=== PATIENT | male | born 1945 | race Caucasian/White ===

== ENCOUNTER 2016-06-13 09:42 | Emergency (ER) | payer OTHER ==
[2016-06-13 10:07] VITALS: BP 137/85; BMI 26.7
--- NOTE | 2016-06-13 10:35 | DR.GENAD ---
HPI - PCP Primary Care Physician: LIONEL VELÁZQUEZ - Complaint/Symptoms Chief Complaint Doctors Comments: Patient presents with complain to chest congestion for 3-4 days; non productive cough. Has a history of COPD and [place] Pulmonary Embolus. Chief Complaint:: CHEST CONGESTION - Source History Provided: Family Member - Mode of Arrival Mode of Arrival: Ambulatory - Timing Onset of Chief Complaint: 06/06/16 PMH - PMH Past Medical History: Yes Past Medical History: CVA, GERD, Hypertension Past Surgical History: Yes Surgical History: Cholecystectomy - Family History History of Family Medical Conditions: Yes Family Medical History: Hypertension Family Medical History Comment: CVA - Social History Does patient currently use any type of tobacco product: Yes Have you used tobacco products in the last 12 months: Yes Type of Tobacco Use: Smokeless How many years tobacco product used: 50 Does any household member use tobacco: Yes Alcohol Use: None Do you use any recreational Drugs:: No Lives With: Spouse Lives Where: Home - infectious screening In the last 2 months have you had wt loss of >10#?: NO Have you had fever, night sweats or hemotysis?: No Have you traveled outside the country in the last 6 months?: No Isolation: Standard ROS - Review of Systems Constitutional: No Symptoms Reported Eyes: No Symptoms Reported ENTM: No Symptoms Reported Respiratoy: Non-Productive Cough Cardiovascular: No Symptoms Reported Gastrointestinal/Abdominal: No Symptoms Reported Genitourinary: No Symptoms Reported Neurological: No Symptoms Reported Musculoskeletal: No Symptoms Reported Integumentary: No Symptoms Reported Hematologic/Lymphatic: No Symptoms Reported Endocrine: No Symptoms Reported Psychiatric: No Symptoms Reported All Other Systems: Reviewed and Negative PE - Vital Signs Vitals: Temperature 98.6 F Pulse Rate 79 Respiratory Rate 18 Blood Pressure [Left Arm] 139/72 Blood Pressure [Right Arm] 142/87 Blood Pressure 137/85 O2 Sat by Pulse Oximetry 93 - General Limitations: No Limitations General Appearance: Alert, In No Apparent Distress - Head Head Exam: Normal Inspection, Atraumatic - Eyes Eye exam: Normal Appearance, PERRL, EOMI - ENT ENT Exam: Normal Exam External Ear Exam: Normal External Inspection TM/Canal Exam: Bilateral Normal Nose Exam: Normal Nose Exam Mouth Exam: Normal Inspection Throat Exam: Normal Inspection - Neck Neck Exam: Normal Inspection - Chest Chest Inspection: Normal Inspection - Respiratory Respiratory Exam: negative: Respiratory Distress Respiratory Exam: Bilateral Rhonchi - Cardiovascular Cardiovascular Exam: Regular Rate - Abdominal Exam Abdominal Exam: Normal Inspection Abdominal Tenderness: negative: RUQ, RLQ, LUQ, LLQ, Epigastrium, Suprapubic, Diffuse, Mild, Moderate, Severe, Other - Extremities Extremities Exam: Normal Inspection - Back Back Exam: Normal Inspection - Neurologic Neurological Exam: Alert, Oriented X3, CN II-XII Intact - Psychiatric Psychiatric Exam: Normal Affect - Skin Skin Exam: Warm, Dry, Intact - Diagnosis Discharge Problem: COPD (chronic obstructive pulmonary disease) Qualifiers: COPD type: chronic bronchitis Chronic bronchitis type: simple Qualified Code(s) : J41.0 - Simple chronic bronchitis - Discharge Plan Condition: Stable - Follow ups/Referrals Follow ups/Referrals: Lionel Velázquez [Primary Care Provider] - 3 days - Instructions
[2016-06-13] MEDS ORDERED: DUONEB 0.5 MG/3 MG NEB ONE (10:36)
[2016-06-13] MEDS ORDERED: DECADRON JET NEB NEB ONE ×2 (10:36→10:42)
[2016-06-13] MEDS ORDERED: DUONEB 0.5 MG/3 MG ONE (10:43)
--- NOTE | 2016-06-13 11:57 | RAD ---
HISTORY: Cough, shortness of breath Study: Chest one view Comparison: December 23, 2015 Findings: The trachea is midline. The cardiac silhouette is upper limits normal in size. No congestive heart failure is noted. The aorta is calcified.. The lungs are mildly hypoinflated but free of acute infi ltrates. The left hemidiaphragm is mildly elevated. A hiatal hernia is likely present.. The bony th orax is unremarkable. IMPRESSION: 1. No acute cardiopulmonary disease. 2. Hiatal hernia Reported By:
== END 2016-06-13 12:45 | disposition home or self-care (01) ==
LOC: ER 10:19
DX: J41.0 Simple chronic bronchitis (principal); K44.9 Diaphragmatic hernia without obstruction or gangrene
CPT/HCPCS: 71010; 87502; 87503; 94640; 99282; J7620

== ENCOUNTER 2016-06-24 12:59 | Inpatient (IN) | payer OTHER ==
[2016-06-24] MEDS ORDERED: SALINE 3% 15 ML NEB TX ONE (14:46)
[2016-06-24] MEDS ORDERED: NS 1/2 1000 ML IV 1,000 ML IV ONE ×2 (15:27→20:48)
[2016-06-24 15:29] LABS: BASOPHILS % (AUTO) 0.3 % (0.2-1.0); EOSINOPHILS % (AUTO) 0.1 % (0.9-2.9); HEMATOCRIT 34.9 % (42.0-54.0); HEMOGLOBIN 11.7 g/dL (13.5-18.0); LYMPHOCYTES # (AUTO) 1.9 X10^3/uL (1.3-2.9); LYMPHOCYTES % (AUTO) 11.7 % (21.0-51.0); MEAN CORPUSCULAR HEMOGLOBIN 28.4 pg (27.0-34.0); MEAN CORPUSCULAR HGB CONC 33.4 g/dL (33.0-35.0); MEAN CORPUSCULAR VOLUME 85.1 fL (80.0-100.0); MEAN PLATELET VOLUME 6.7 fL (7.4-11.0); MONOCYTES # (AUTO) 1.6 x10^3/uL (0.3-0.8); MONOCYTES % (AUTO) 9.9 % (0.0-13.0); NEUTROPHILS # (AUTO) 12.7 x10^3/uL (2.2-4.8); PLATELET COUNT 244 X10^3/uL (150.0-450.0); RED BLOOD COUNT 4.11 X10^6/uL (4.7-6.0); RED CELL DISTRIBUTION WIDTH 14.2 % (11.6-16.5); WHITE BLOOD COUNT 16.3 X10^3/uL (3.6-10.0)
[2016-06-24] MEDS: LEVAQUIN PREMIX IV 750 MG 750 MG/150 ML BAG IV SCH (15:38)
[2016-06-24] MEDS: FORTAZ or TAZICEF INJ 2 GM in NS 50 ML IV + SPIKE MINIBAG* 50 ML IV SCH ×2 (15:39→23:47)
[2016-06-24] MEDS: NS 1/2 1000 ML IV 1,000 ML IV SCH (15:39)
[2016-06-24] MEDS: TAMIFLU PO SCH ×2 (15:40→20:55)
[2016-06-24] MEDS: SOLU-Medrol 40 MG VIAL IVP SCH ×2 (15:40→21:03)
[2016-06-24 15:43] LABS: ALANINE AMINOTRANSFERASE 20 Units/L (12-78); ALBUMIN 2.9 g/dL (3.4-5.0); ALKALINE PHOSPHATASE 47 Units/L (46-116); ASPARTATE AMINO TRANSFERASE 19 Units/L (15-37); BLOOD UREA NITROGEN 8 mg/dL (7-18); CALCIUM 8.8 mg/dL (8.5-10.1); CARBON DIOXIDE 28.2 mmol/L (21-32); CHLORIDE 107 mmol/L (98-107); COR CA(FOR HYPOALB) 9.7 mg/dL (8.5-10.1); CREATININE 1.14 mg/dL (0.70-1.30); GLUCOSE 85 mg/dL (65-99); SODIUM 144 mmol/L (136-145); TOTAL PROTEIN 7.2 g/dL (6.4-8.2); eGFR BLACK RACES > 60 (>60); eGFR NON BLACK RACES > 60 (>60)
[2016-06-24 15:51] VITALS: BMI 33.9
[2016-06-24] MEDS: DUONEB 0.5 MG/3 MG NEB SCH ×2 (16:52→21:19)
[2016-06-24] MEDS: ROBITUSSIN DM PO SCH ×2 (17:45→20:55)
--- NOTE | 2016-06-24 19:45 | RAD ---
CHEST RADIOGRAPHS PA AND LATERAL VIEWS CLINICAL HISTORY: 71-year-old male with wheezing and shortness of breath. COMPARISON: Chest radiograph June 13, 2016.. FINDINGS: The cardiopericardial silhouette is stable. There is no focal consolidation, pleural effu alonzo or pneumothorax. The lungs are well inflated. Chronic prominence of the perihilar lung markings . Imaged osseous structures are intact. Soft tissues are unremarkable. IMPRESSION: No acute cardiopulmonary process. Reported By:
[2016-06-25] MEDS: DUONEB 0.5 MG/3 MG NEB SCH ×6 (00:45→20:45)
[2016-06-25] MEDS: FORTAZ or TAZICEF INJ 2 GM in NS 50 ML IV + SPIKE MINIBAG* 50 ML IV SCH ×3 (05:58→21:29)
[2016-06-25] MEDS: NS 1/2 1000 ML IV 1,000 ML IV SCH ×2 (05:58→18:17)
[2016-06-25] MEDS: SOLU-Medrol 40 MG VIAL IVP SCH ×3 (05:59→21:38)
[2016-06-25 07:09] LABS: ALANINE AMINOTRANSFERASE 16 Units/L (12-78); ALBUMIN 2.5 g/dL (3.4-5.0); ALKALINE PHOSPHATASE 40 Units/L (46-116); ASPARTATE AMINO TRANSFERASE 13 Units/L (15-37); BLOOD UREA NITROGEN 12 mg/dL (7-18); CALCIUM 8.9 mg/dL (8.5-10.1); CARBON DIOXIDE 24.6 mmol/L (21-32); CHLORIDE 105 mmol/L (98-107); COR CA(FOR HYPOALB) 10.1 mg/dL (8.5-10.1); COR NA(FOR HYPERGLY) 142 mmol/L (136-145); GLUCOSE 130 mg/dL (65-99); SODIUM 141 mmol/L (136-145); TOTAL PROTEIN 6.8 g/dL (6.4-8.2); eGFR BLACK RACES > 60 (>60); eGFR NON BLACK RACES > 60 (>60)
[2016-06-25 07:31] LABS: BASOPHILS % (AUTO) 0 % (0.2-1.0); HEMATOCRIT 32.1 % (42.0-54.0); HEMOGLOBIN 10.6 g/dL (13.5-18.0); LYMPHOCYTES # (AUTO) 0.4 X10^3/uL (1.3-2.9); LYMPHOCYTES % (AUTO) 2.8 % (21.0-51.0); MEAN CORPUSCULAR HEMOGLOBIN 28.2 pg (27.0-34.0); MEAN CORPUSCULAR HGB CONC 32.9 g/dL (33.0-35.0); MEAN CORPUSCULAR VOLUME 85.5 fL (80.0-100.0); MEAN PLATELET VOLUME 6.9 fL (7.4-11.0); MONOCYTES # (AUTO) 0.5 x10^3/uL (0.3-0.8); NEUTROPHILS # (AUTO) 12.5 x10^3/uL (2.2-4.8); NEUTROPHILS % (AUTO) 93.2 % (42.0-75.0); PLATELET COUNT 209 X10^3/uL (150.0-450.0); RED BLOOD COUNT 3.76 X10^6/uL (4.7-6.0); RED CELL DISTRIBUTION WIDTH 14.3 % (11.6-16.5); WHITE BLOOD COUNT 13.4 X10^3/uL (3.6-10.0)
--- NOTE | 2016-06-25 07:50 | RAD ---
HISTORY: Chest pain Study: Single view chest. Comparison: June 24, 2016. Findings: The trachea is midline. The cardiac silhouette is unremarkable. The lungs are clear without focal infiltrate or effusion. The bony thorax is unremarkable. A small hiatal hernia remains. IMPRESSION: 1. No acute cardiopulmonary changes seen. Reported By:
[2016-06-25 08:15] LABS: PLATELET MORPHOLOGY COMMENT NORMAL (NORMAL)
[2016-06-25] MEDS: TAMIFLU PO SCH ×2 (09:47→21:37)
[2016-06-25] MEDS: ROBITUSSIN DM PO SCH ×3 (09:47→17:39)
[2016-06-25] MEDS: LEVAQUIN PREMIX IV 750 MG 750 MG/150 ML BAG IV SCH (09:47)
[2016-06-25] MEDS ORDERED: ULTRAM PO PRN (10:56)
[2016-06-25] MEDS ORDERED: CHOLECALCIFEROL PO SCH (11:00)
[2016-06-25] MEDS ORDERED: [UNRECOGNIZED DRUG - OTHER] PO SCH (11:00)
[2016-06-25] MEDS ORDERED: LOPRESSOR TAB 50 MG PO SCH (11:00)
[2016-06-25] MEDS ORDERED: EFFEXOR XR 37.5 MG CAP PO SCH (11:00)
[2016-06-25] MEDS ORDERED: [UNRECOGNIZED DRUG - OTHER] PO SCH (11:00)
[2016-06-25] MEDS: EFFEXOR TAB 37.5 MG (BID DOSING) PO SCH (12:06)
[2016-06-25] MEDS: NAMENDA TAB 10 MG PO SCH ×2 (12:06→21:34)
[2016-06-25] MEDS: LOPRESSOR TAB 25 MG PO SCH ×2 (12:06→21:35)
[2016-06-25] MEDS: GEODON PO SCH ×2 (12:07→21:37)
[2016-06-25] MEDS: ALBUMIN HUMAN 25%- 100ML 100 ML IV SCH (12:07)
[2016-06-25] MEDS: ELIQUIS PO SCH ×2 (12:07→21:34)
[2016-06-25] MEDS: ZANTAC PO SCH ×2 (12:07→21:34)
[2016-06-25] MEDS: SINGULAIR TAB 10 MG PO SCH (12:07)
[2016-06-25] MEDS: [UNRECOGNIZED DRUG - OTHER] PO SCH ×3 (12:12→21:40)
--- NOTE | 2016-06-25 17:37 | DR.UPDATE ---
H&P Update History and Physical Update: HISTORY AND PHYSICAL UPDATE FOR ADMISSION 06/24/16 MR. CHIN'S H&P WAS COMPLETED IN OUR OFFICE PRIOR TO ADMISSION. HE HAS BEEN SEEN AND EXAMINED WITH NO CHANGES NOTED.
--- NOTE | 2016-06-25 17:41 | PCM.PROG ---
Progress Note - Progress Note for Day of Date: 06/25/16 - Subjective Subjective: PATIENT RESTS IN BED. AT BEDSIDE. PATIENT IS NOTED WITH SHORTNESS OF BREATH AND CHEST CONGESTION TODAY. HE CONTINUES ON IV LEVAQUIN, FORTAZ, AND AGGRESSIVE NEB TREATMENTS FOR BRONCHOPNEUMONIA WITH FAILED OUTPATIENT TREATMENT. ON AUSCULTATION, LUNGS ARE NOTED WITH WHEEZING AND RHONCHI THROUGHOUT. COUGH IS INTERMITTENT, NON-PRODUCTIVE. PATIENT HAS DIFFICULTY WITH FOLLOWING INSTRUCTIONS DUE TO PRIOR CVA. PATIENT DOES NOT FOLLOW COMMAND TO DEEP BREATH AND COUGH. PATIENT AFEBRILE. CBC WNL EXCEPT: WBC 13.4, H/H 10.6/32.1. CMP WNL EXCEPT: GLUCOSE 130, ALBUMIN 2.5. CRP 80.60. WE WILL CONTINUE CURRENT TREATMENT AND FOLLOW UP IN AM WITH LABS AND CHEST XRAY. - Past Medical Family Social History Past Med/Fam/Surg Hx: No changes since H&P Allergies: Allergies No Known Drug Allergy Allergy (Verified 06/24/16 14:52) - Review of Systems ROS: No change since H&P - Vital Signs and I&O's Vital Signs: Temperature 97.9 F Pulse Rate [Left Brachial] 66 Pulse Rate [Right Brachial] 78 Pulse Rate 64 Respiratory Rate 20 Blood Pressure [Left Arm] 114/59 Blood Pressure [Right Arm] 120/58 Blood Pressure 137/85 O2 Sat by Pulse Oximetry 99 Intake and Output: Intake & Output 06/23/16 06/24/16 06/25/16 06/26/16 11:59 11:59 11:59 11:59 Intake Total 660 1136 Output Total 0 Balance 660 1136 - Physical Exam Oriented: Not Oriented Eyes: Normal. negative: Blurred Vision, Diplopia, Discharge, Pain, Redness, Photophobia Ear: Normal. negative: Swelling, Ecchymosis, Hemotypanum, Abrasion, Laceration Nose: Normal. negative: Injected Throat: Red, Dry. negative: Tonsillar Hypertrophy, Exudate Respiratory: Generalized, Wheezes, Rhonchi Cardiovascular: Normal. negative: Murmur, Edema : Normal. negative: Dysuria, Hematuria, Frequency, Discharge, Bleeding, Auscultation: Bowel Sounds: Normal. negative: Bruit Palpation: Normal. negative: Spleen Enlarged, Liver Enlarged, Mass Pulsatile Tenderness: Normal. negative: Rebound, Guarding, Rigidity Skin: Decreased Turgur. negative: Diaphoresis, Wound, Bruising, Ecchymosis Musculoskeletal: Motor Deficit, Instability Psychiatric: Normal Mood Description: Calm, Appropriate Affect: Normal Speech Pattern: Clear, Delayed - Laboratory and Diagnostics Result Diagrams: 06/25/16 06:35 06/25/16 06:35 Labs: 06/24/16 15:02 Sputum - Expectorated Sputum Sputum Culture - Preliminary 06/24/16 15:02 Sputum - Expectorated Sputum - Final Laboratory WBC 13.4 X10^3/uL (3.6-10.0) H 06/25/16 06:35 RBC 3.76 X10^6/uL (4.7-6.0) L 06/25/16 06:35 Hgb 10.6 g/dL (13.5-18.0) L 06/25/16 06:35 Hct 32.1 % (42.0-54.0) L 06/25/16 06:35 MCV 85.5 fL (80.0-100.0) 06/25/16 06:35 MCH 28.2 pg (27.0-34.0) 06/25/16 06:35 MCHC 32.9 g/dL (33.0-35.0) L 06/25/16 06:35 RDW 14.3 % (11.6-16.5) 06/25/16 06:35 Plt Count 209 X10^3/uL (150.0-450.0) 06/25/16 06:35 Plt Count Comment Adequate (ADEQUATE) 06/25/16 06:35 MPV 6.9 fL (7.4-11.0) L 06/25/16 06:35 Neut % 93.2 % (42.0-75.0) H 06/25/16 06:35 Lymph % 2.8 % (21.0-51.0) L 06/25/16 06:35 [place] % 4.0 % (0.0-13.0) 06/25/16 06:35 Eos % 0.0 % (0.9-2.9) L 06/25/16 06:35 Baso % 0 % (0.2-1.0) L 06/25/16 06:35 Neut # 12.5 x10^3/uL (2.2-4.8) H 06/25/16 06:35 Lymph # 0.4 X10^3/uL (1.3-2.9) L 06/25/16 06:35 [place] # 0.5 x10^3/uL (0.3-0.8) 06/25/16 06:35 Eos # 0.0 x10^3/uL (0.0-0.2) 06/25/16 06:35 Baso # 0.0 X10^3/uL (0.0-0.1) 06/25/16 06:35 Absolute Nucleated RBC 0.0 /100WBC 06/25/16 06:35 Total Counted 100 06/25/16 06:35 Neutrophils % (Manual) 92 % (39-76) H 06/25/16 06:35 Lymphocytes % (Manual) 6 % (13-43) L 06/25/16 06:35 Monocytes % (Manual) 2 % (4-9) L 06/25/16 06:35 Plt Morphology Comment Normal (NORMAL) 06/25/16 06:35 RBC Morphology Normal (NORMAL) 06/25/16 06:35 Sodium 141 mmol/L (136-145) 06/25/16 06:35 Corrected Sodium 142 mmol/L (136-145) 06/25/16 06:35 Potassium 4.0 mmol/L (3.5-5.1) 06/25/16 06:35 Chloride 105 mmol/L (98-107) 06/25/16 06:35 Carbon Dioxide 24.6 mmol/L (21-32) 06/25/16 06:35 BUN 12 mg/dL (7-18) 06/25/16 06:35 Creatinine 1.10 mg/dL (0.70-1.30) 06/25/16 06:35 Est GFR (MDRD) Af Amer > 60 (>60) 06/25/16 06:35 Est GFR (MDRD) Non-Af > 60 (>60) 06/25/16 06:35 Glucose 130 mg/dL (65-99) H 06/25/16 06:35 Calcium 8.9 mg/dL (8.5-10.1) 06/25/16 06:35 Corrected Calcium 10.1 mg/dL (8.5-10.1) 06/25/16 06:35 Total Bilirubin 0.60 mg/dL (0.2-1.0) 06/25/16 06:35 AST 13 Units/L (15-37) L 06/25/16 06:35 ALT 16 Units/L (12-78) 06/25/16 06:35 Alkaline Phosphatase 40 Units/L (46-116) L 06/25/16 06:35 C-Reactive Protein 80.60 mg/L (0-3.0) H 06/25/16 06:35 Total Protein 6.8 g/dL (6.4-8.2) 06/25/16 06:35 Albumin 2.5 g/dL (3.4-5.0) L 06/25/16 06:35 Globulin 4.3 g/dL (2.5-4.5) 06/25/16 06:35 Albumin/Globulin Ratio 0.6 Ratio (1.1-2.1) L 06/25/16 06:35 - Plan (1) Bronchopneumonia Status: Acute Plan: CONTINUE IV FORTAZ, LEVAQUIN, AGGRESSIVE NEBS, SUPPLEMENTAL OXGYEN, MONITOR LABS AND CHEST XRAY. (2) Hx of pulmonary embolus Status: Chronic (3) History of CVA (cerebrovascular accident) Status: Chronic (4) COPD (chronic obstructive pulmonary disease) Status: Acute Qualifiers: COPD type: chronic bronchitis Chronic bronchitis type: simple Emphysema type: E Qualified Code(s): J41.0 - Simple chronic bronchitis (5) GERD (gastroesophageal reflux disease) Status: Chronic Qualifiers: Esophagitis presence: esophagitis presence not specified Qualified Code(s) : K21.9 - Gastro-esophageal reflux disease without esophagitis (6) Hx of prostatic malignancy Status: Chronic
[2016-06-25] MEDS ORDERED: EFFEXOR XR 150 MG CAP PO SCH (21:00)
[2016-06-25] MEDS: EFFEXOR TAB 75 MG (BID DOSING) PO SCH (21:33)
[2016-06-25] MEDS: MUCINEX EXPECTORANT PO SCH (21:34)
[2016-06-25] MEDS: ARICEPT TAB 10 MG PO SCH (21:36)
[2016-06-26] MEDS ORDERED: NS 1/2 1000 ML IV 1,000 ML IV ONE ×2 (00:48→16:14)
[2016-06-26] MEDS: NS 1/2 1000 ML IV 1,000 ML IV SCH ×3 (00:55→23:58)
[2016-06-26] MEDS: DUONEB 0.5 MG/3 MG NEB SCH ×6 (01:08→20:31)
[2016-06-26] MEDS: FORTAZ or TAZICEF INJ 2 GM in NS 50 ML IV + SPIKE MINIBAG* 50 ML IV SCH ×3 (05:46→21:21)
[2016-06-26] MEDS: SOLU-Medrol 40 MG VIAL IVP SCH ×3 (05:46→21:22)
[2016-06-26] MEDS: [UNRECOGNIZED DRUG - OTHER] PO SCH ×3 (05:47→21:27)
[2016-06-26 06:02] LABS: BASOPHILS % (AUTO) 0.1 % (0.2-1.0); HEMATOCRIT 32.8 % (42.0-54.0); LYMPHOCYTES # (AUTO) 0.6 X10^3/uL (1.3-2.9); LYMPHOCYTES % (AUTO) 5.6 % (21.0-51.0); MEAN CORPUSCULAR HGB CONC 33.7 g/dL (33.0-35.0); MEAN CORPUSCULAR VOLUME 85.9 fL (80.0-100.0); MEAN PLATELET VOLUME 7.1 fL (7.4-11.0); MONOCYTES # (AUTO) 0.4 x10^3/uL (0.3-0.8); MONOCYTES % (AUTO) 4.4 % (0.0-13.0); NEUTROPHILS # (AUTO) 8.9 x10^3/uL (2.2-4.8); NEUTROPHILS % (AUTO) 89.9 % (42.0-75.0); PLATELET COUNT 178 X10^3/uL (150.0-450.0); RED BLOOD COUNT 3.81 X10^6/uL (4.7-6.0); RED CELL DISTRIBUTION WIDTH 14.7 % (11.6-16.5); WHITE BLOOD COUNT 9.9 X10^3/uL (3.6-10.0)
[2016-06-26 07:50] LABS: ALANINE AMINOTRANSFERASE 17 Units/L (12-78); ALBUMIN 2.8 g/dL (3.4-5.0); ALKALINE PHOSPHATASE 38 Units/L (46-116); ASPARTATE AMINO TRANSFERASE 17 Units/L (15-37); BLOOD UREA NITROGEN 15 mg/dL (7-18); CALCIUM 9.5 mg/dL (8.5-10.1); CARBON DIOXIDE 29.3 mmol/L (21-32); CHLORIDE 107 mmol/L (98-107); COR CA(FOR HYPOALB) 10.5 mg/dL (8.5-10.1); COR NA(FOR HYPERGLY) 143 mmol/L (136-145); CREATININE 1.07 mg/dL (0.70-1.30); GLUCOSE 112 mg/dL (65-99); SODIUM 143 mmol/L (136-145); TOTAL PROTEIN 6.9 g/dL (6.4-8.2); eGFR BLACK RACES > 60 (>60); eGFR NON BLACK RACES > 60 (>60)
[2016-06-26] MEDS ORDERED: DEPAKOTE D.R. TAB PO ONE (09:49)
--- NOTE | 2016-06-26 10:06 | RAD ---
HISTORY: Pneumonia, coughing, congestion Study: AP chest obtained 6:56 a.m. Comparison: June 25, 2016 Findings: The trachea is midline . There is no widening or shift of mediastinum. The cardiac silhouette appear s within normal limits. The costophrenic angles are sharp and both diaphragms are adequately maintai arjun. The lungs are adequately aerated. Osseous structures are within normal limits for the patient's age There is no evidence of active inflammatory disease.. Minimal atelectasis left lower lobe. IMPRESSION: 1. Heart normal size lungs clear. Minimal atelectasis left lower lobe. No evidence of bacterial pne umonia. Reported By:
[2016-06-26] MEDS: ALBUMIN HUMAN 25%- 100ML 100 ML IV SCH (10:15)
[2016-06-26] MEDS: NAMENDA TAB 10 MG PO SCH ×2 (10:16→21:26)
[2016-06-26] MEDS: GEODON PO SCH ×2 (10:16→21:26)
[2016-06-26] MEDS: ZANTAC PO SCH ×2 (10:16→21:22)
[2016-06-26] MEDS: MUCINEX EXPECTORANT PO SCH ×2 (10:16→21:25)
[2016-06-26] MEDS: SINGULAIR TAB 10 MG PO SCH (10:16)
[2016-06-26] MEDS: TAMIFLU PO SCH ×2 (10:17→21:25)
[2016-06-26] MEDS: EFFEXOR TAB 37.5 MG (BID DOSING) PO SCH (10:18)
[2016-06-26] MEDS: VITAMIN D3 PO SCH (10:19)
[2016-06-26] MEDS: LOPRESSOR TAB 25 MG PO SCH ×2 (10:19→21:26)
[2016-06-26] MEDS: ELIQUIS PO SCH ×2 (10:19→21:26)
[2016-06-26] MEDS: LEVAQUIN PREMIX IV 750 MG 750 MG/150 ML BAG IV SCH (10:54)
--- NOTE | 2016-06-26 18:53 | PCM.PROG ---
Progress Note - Progress Note for Day of Date: 06/26/16 - Subjective Subjective: PATIENT RESTS IN BED. PATIENT CONTINUES WITH SHORTNESS OF BREATH AND CHEST CONGESTION. HE CONTINUES ON IV LEVAQUIN, FORTAZ, AND AGGRESSIVE NEB TREATMENTS FOR BRONCHOPNEUMONIA WITH FAILED OUTPATIENT TREATMENT. ON AUSCULTATION, LUNGS CONTINUE WITH WHEEZING AND RHONCHI THROUGHOUT. COUGH IS INTERMITTENT, NON-PRODUCTIVE. PATIENT AFEBRILE. CBC WNL EXCEPT: H/H 11.0/ 32.8. CMP WNL EXCEPT: GLUCOSE 112, ALBUMIN 2.8. CRP 29.70. WE WILL CONTINUE CURRENT TREATMENT AND FOLLOW UP IN AM WITH LABS AND CHEST XRAY. - Past Medical Family Social History Past Med/Fam/Surg Hx: No changes since H&P Allergies: Allergies No Known Drug Allergy Allergy (Verified 06/24/16 14:52) - Review of Systems ROS: No change since H&P - Vital Signs and I&O's Vital Signs: Temperature 97.9 F Pulse Rate [Left Brachial] 61 Pulse Rate [Right Brachial] 78 Pulse Rate 78 Respiratory Rate 18 Blood Pressure [Left Arm] 114/59 Blood Pressure [Right Arm] 120/58 Blood Pressure 137/85 O2 Sat by Pulse Oximetry 98 Intake and Output: Intake & Output 06/24/16 06/25/16 06/26/16 06/27/16 11:59 11:59 11:59 11:59 Intake Total 660 2552 1200 Output Total 0 Balance 660 2552 1200 - Physical Exam Oriented: Person Eyes: Normal. negative: Blurred Vision, Diplopia, Discharge, Pain, Redness, Photophobia Ear: Normal. negative: Swelling, Ecchymosis, Hemotypanum, Abrasion, Laceration Nose: Normal. negative: Injected Throat: Red, Dry. negative: Tonsillar Hypertrophy, Exudate Respiratory: Generalized, Wheezes, Rhonchi Cardiovascular: Normal. negative: Murmur, Edema : Normal. negative: Dysuria, Hematuria, Frequency, Discharge, Bleeding, Auscultation: Bowel Sounds: Normal. negative: Bruit Palpation: Normal Tenderness: Normal. negative: Rebound, Guarding, Rigidity Skin: Decreased Turgur. negative: Diaphoresis, Wound, Bruising, Ecchymosis Musculoskeletal: Motor Deficit, Instability Psychiatric: Normal Mood Description: Calm, Appropriate Affect: Normal Speech Pattern: Clear, Appropriate - Laboratory and Diagnostics Result Diagrams: 06/26/16 05:35 06/26/16 05:35 Labs: 06/24/16 15:15 Blood Blood Culture - Preliminary 06/24/16 15:05 Blood Blood Culture - Preliminary 06/24/16 15:02 Sputum - Expectorated Sputum Sputum Culture - Final 06/24/16 15:02 Sputum - Expectorated Sputum - Final Laboratory WBC 9.9 X10^3/uL (3.6-10.0) 06/26/16 05:35 RBC 3.81 X10^6/uL (4.7-6.0) L 06/26/16 05:35 Hgb 11.0 g/dL (13.5-18.0) L 06/26/16 05:35 Hct 32.8 % (42.0-54.0) L 06/26/16 05:35 MCV 85.9 fL (80.0-100.0) 06/26/16 05:35 MCH 29.0 pg (27.0-34.0) 06/26/16 05:35 MCHC 33.7 g/dL (33.0-35.0) 06/26/16 05:35 RDW 14.7 % (11.6-16.5) 06/26/16 05:35 Plt Count 178 X10^3/uL (150.0-450.0) 06/26/16 05:35 Plt Count Comment Adequate (ADEQUATE) 06/25/16 06:35 MPV 7.1 fL (7.4-11.0) L 06/26/16 05:35 Neut % 89.9 % (42.0-75.0) H 06/26/16 05:35 Lymph % 5.6 % (21.0-51.0) L 06/26/16 05:35 [place] % 4.4 % (0.0-13.0) 06/26/16 05:35 Eos % 0.0 % (0.9-2.9) L 06/26/16 05:35 Baso % 0.1 % (0.2-1.0) L 06/26/16 05:35 Neut # 8.9 x10^3/uL (2.2-4.8) H 06/26/16 05:35 Lymph # 0.6 X10^3/uL (1.3-2.9) L 06/26/16 05:35 [place] # 0.4 x10^3/uL (0.3-0.8) 06/26/16 05:35 Eos # 0.0 x10^3/uL (0.0-0.2) 06/26/16 05:35 Baso # 0.0 X10^3/uL (0.0-0.1) 06/26/16 05:35 Absolute Nucleated RBC 0.0 /100WBC 06/26/16 05:35 Total Counted 100 06/25/16 06:35 Neutrophils % (Manual) 92 % (39-76) H 06/25/16 06:35 Lymphocytes % (Manual) 6 % (13-43) L 06/25/16 06:35 Monocytes % (Manual) 2 % (4-9) L 06/25/16 06:35 Plt Morphology Comment Normal (NORMAL) 06/25/16 06:35 RBC Morphology Normal (NORMAL) 06/25/16 06:35 Sodium 143 mmol/L (136-145) 06/26/16 05:35 Corrected Sodium 143 mmol/L (136-145) 06/26/16 05:35 Potassium 5.0 mmol/L (3.5-5.1) 06/26/16 05:35 Chloride 107 mmol/L (98-107) 06/26/16 05:35 Carbon Dioxide 29.3 mmol/L (21-32) 06/26/16 05:35 BUN 15 mg/dL (7-18) 06/26/16 05:35 Creatinine 1.07 mg/dL (0.70-1.30) 06/26/16 05:35 Est GFR (MDRD) Af Amer > 60 (>60) 06/26/16 05:35 Est GFR (MDRD) Non-Af > 60 (>60) 06/26/16 05:35 Glucose 112 mg/dL (65-99) H 06/26/16 05:35 Calcium 9.5 mg/dL (8.5-10.1) 06/26/16 05:35 Corrected Calcium 10.5 mg/dL (8.5-10.1) H 06/26/16 05:35 Total Bilirubin 0.20 mg/dL (0.2-1.0) 06/26/16 05:35 AST 17 Units/L (15-37) 06/26/16 05:35 ALT 17 Units/L (12-78) 06/26/16 05:35 Alkaline Phosphatase 38 Units/L (46-116) L 06/26/16 05:35 C-Reactive Protein 29.70 mg/L (0-3.0) H 06/26/16 05:35 Total Protein 6.9 g/dL (6.4-8.2) 06/26/16 05:35 Albumin 2.8 g/dL (3.4-5.0) L 06/26/16 05:35 Globulin 4.1 g/dL (2.5-4.5) 06/26/16 05:35 Albumin/Globulin Ratio 0.7 Ratio (1.1-2.1) L 06/26/16 05:35 - Plan (1) Bronchopneumonia Status: Acute Plan: CONTINUE IV FORTAZ, LEVAQUIN, AGGRESSIVE NEBS, SUPPLEMENTAL OXGYEN, MONITOR LABS AND CHEST XRAY. (2) Hx of pulmonary embolus Status: Chronic (3) History of CVA (cerebrovascular accident) Status: Chronic (4) COPD (chronic obstructive pulmonary disease) Status: Acute Qualifiers: COPD type: chronic bronchitis Chronic bronchitis type: simple Emphysema type: E Qualified Code(s): J41.0 - Simple chronic bronchitis (5) GERD (gastroesophageal reflux disease) Status: Chronic Qualifiers: Esophagitis presence: esophagitis presence not specified Qualified Code(s) : K21.9 - Gastro-esophageal reflux disease without esophagitis (6) Hx of prostatic malignancy Status: Chronic
[2016-06-26] MEDS: EFFEXOR TAB 75 MG (BID DOSING) PO SCH (21:25)
[2016-06-26] MEDS: ARICEPT TAB 10 MG PO SCH (21:26)
[2016-06-26] MEDS: NORCO 7.5/325 MG TAB PO PRN (21:26)
[2016-06-27] MEDS: DUONEB 0.5 MG/3 MG NEB SCH ×5 (00:36→20:50)
[2016-06-27] MEDS ORDERED: NS 1/2 1000 ML IV 1,000 ML IV ONE ×2 (04:44→21:30)
[2016-06-27] MEDS: FORTAZ or TAZICEF INJ 2 GM in NS 50 ML IV + SPIKE MINIBAG* 50 ML IV SCH ×3 (05:32→21:34)
[2016-06-27] MEDS: SOLU-Medrol 40 MG VIAL IVP SCH ×3 (05:34→21:37)
[2016-06-27] MEDS: NS 1/2 1000 ML IV 1,000 ML IV SCH ×2 (05:34→21:32)
[2016-06-27] MEDS: [UNRECOGNIZED DRUG - OTHER] PO SCH ×3 (05:37→21:38)
[2016-06-27 06:04] LABS: ALANINE AMINOTRANSFERASE 17 Units/L (12-78); ALBUMIN 2.8 g/dL (3.4-5.0); ALKALINE PHOSPHATASE 30 Units/L (46-116); ASPARTATE AMINO TRANSFERASE 13 Units/L (15-37); BLOOD UREA NITROGEN 20 mg/dL (7-18); CALCIUM 9.6 mg/dL (8.5-10.1); CARBON DIOXIDE 28.3 mmol/L (21-32); CHLORIDE 107 mmol/L (98-107); COR CA(FOR HYPOALB) 10.6 mg/dL (8.5-10.1); CREATININE 0.98 mg/dL (0.70-1.30); GLUCOSE 108 mg/dL (65-99); SODIUM 141 mmol/L (136-145); TOTAL PROTEIN 6.5 g/dL (6.4-8.2); eGFR BLACK RACES > 60 (>60); eGFR NON BLACK RACES > 60 (>60)
[2016-06-27 06:19] LABS: BASOPHILS % (AUTO) 0.1 % (0.2-1.0); HEMATOCRIT 31.6 % (42.0-54.0); HEMOGLOBIN 10.7 g/dL (13.5-18.0); LYMPHOCYTES # (AUTO) 0.6 X10^3/uL (1.3-2.9); LYMPHOCYTES % (AUTO) 6.6 % (21.0-51.0); MEAN CORPUSCULAR HGB CONC 33.8 g/dL (33.0-35.0); MEAN PLATELET VOLUME 7.2 fL (7.4-11.0); MONOCYTES # (AUTO) 0.3 x10^3/uL (0.3-0.8); MONOCYTES % (AUTO) 3.5 % (0.0-13.0); NEUTROPHILS # (AUTO) 8.4 x10^3/uL (2.2-4.8); NEUTROPHILS % (AUTO) 89.8 % (42.0-75.0); PLATELET COUNT 181 X10^3/uL (150.0-450.0); RED BLOOD COUNT 3.68 X10^6/uL (4.7-6.0); RED CELL DISTRIBUTION WIDTH 14.4 % (11.6-16.5); WHITE BLOOD COUNT 9.3 X10^3/uL (3.6-10.0)
--- NOTE | 2016-06-27 06:34 | RAD ---
AP Chest Indication:shortness of breath and chest pain Comparison: 06/26/2016 Findings: The trachea is midline. The cardiac silhouette is unremarkable. Linear opacity within the left midl aakash most consistent with scarring/atelectasis. The lungs are clear without focal infiltrate or effus ion. The bony thorax is unremarkable. IMPRESSION: 1. No acute cardiopulmonary abnormality. Reported By:
[2016-06-27] MEDS: ALBUMIN HUMAN 25%- 100ML 100 ML IV SCH (09:19)
[2016-06-27] MEDS: VITAMIN D3 PO SCH (09:21)
[2016-06-27] MEDS: ZANTAC PO SCH ×2 (09:21→21:37)
[2016-06-27] MEDS: EFFEXOR TAB 37.5 MG (BID DOSING) PO SCH (09:21)
[2016-06-27] MEDS: NAMENDA TAB 10 MG PO SCH ×2 (09:22→21:36)
[2016-06-27] MEDS: SINGULAIR TAB 10 MG PO SCH (09:22)
[2016-06-27] MEDS: ELIQUIS PO SCH ×2 (09:23→21:36)
[2016-06-27] MEDS: LOPRESSOR TAB 25 MG PO SCH ×2 (09:23→21:36)
[2016-06-27] MEDS: GEODON PO SCH ×2 (09:23→21:36)
[2016-06-27] MEDS: MUCINEX EXPECTORANT PO SCH ×2 (09:24→21:35)
[2016-06-27] MEDS: LEVAQUIN PREMIX IV 750 MG 750 MG/150 ML BAG IV SCH (10:15)
--- NOTE | 2016-06-27 11:17 | PCM.PROG ---
Progress Note - Progress Note for Day of Date: 06/27/16 - Subjective Subjective: PATIENT IS RESTING IN BED ON MORNING ROUNDS. PATIENT CONTINUES WITH SHORTNESS OF BREATH AND CHEST CONGESTION. HE CONTINUES ON IV LEVAQUIN, FORTAZ, AND AGGRESSIVE NEB TREATMENTS FOR BRONCHOPNEUMONIA WITH FAILED OUTPATIENT TREATMENT. ON AUSCULTATION, LUNGS CONTINUE WITH WHEEZING AND RHONCHI THROUGHOUT. COUGH IS INTERMITTENT, NON-PRODUCTIVE. PATIENT AFEBRILE. CBC WNL EXCEPT: H/H 10.7/31.6. CMP WNL EXCEPT: BUN 20, GLUCOSE 108, AST 13, ALBUMIN 2.8. CRP IMPROVES FROM 29.70 TO 8.80. WE WILL CONTINUE CURRENT TREATMENT AND FOLLOW UP IN AM WITH LABS AND CHEST XRAY. - Past Medical Family Social History Past Med/Fam/Surg Hx: No changes since H&P Allergies: Allergies No Known Drug Allergy Allergy (Verified 06/24/16 14:52) - Review of Systems ROS: No change since H&P - Vital Signs and I&O's Vital Signs: Temperature 97.4 F Pulse Rate [Left Brachial] 61 Pulse Rate [Right Brachial] 78 Pulse Rate 71 Respiratory Rate 18 Blood Pressure [Left Arm] 144/81 Blood Pressure [Right Arm] 120/58 Blood Pressure 137/85 O2 Sat by Pulse Oximetry 98 Intake and Output: Intake & Output 06/24/16 06/25/16 06/26/16 06/27/16 11:59 11:59 11:59 11:59 Intake Total 660 2552 2031 Output Total 0 Balance 660 2552 2031 - Physical Exam Oriented: Person Eyes: Normal. negative: Blurred Vision, Diplopia, Discharge, Pain, Redness, Photophobia Ear: Normal. negative: Swelling, Ecchymosis, Hemotypanum, Abrasion, Laceration Nose: Normal. negative: Injected Throat: Red, Dry. negative: Tonsillar Hypertrophy, Exudate Respiratory: Generalized, Wheezes, Rhonchi Cardiovascular: Normal. negative: Murmur, Edema : Normal. negative: Dysuria, Hematuria, Frequency, Discharge, Bleeding, Auscultation: Bowel Sounds: Normal. negative: Bruit Palpation: Normal. negative: Spleen Enlarged, Liver Enlarged, Mass Pulsatile Tenderness: Normal. negative: Rebound, Guarding, Rigidity Skin: Decreased Turgur. negative: Diaphoresis, Wound, Bruising, Ecchymosis Musculoskeletal: Motor Deficit, Instability Psychiatric: Normal Mood Description: Calm, Appropriate Affect: Normal Speech Pattern: Aphasic - Laboratory and Diagnostics Result Diagrams: 06/27/16 05:20 06/27/16 05:20 Labs: 06/24/16 15:15 Blood Blood Culture - Preliminary 06/24/16 15:05 Blood Blood Culture - Preliminary 06/24/16 15:02 Sputum - Expectorated Sputum Sputum Culture - Final 06/24/16 15:02 Sputum - Expectorated Sputum - Final Laboratory WBC 9.3 X10^3/uL (3.6-10.0) 06/27/16 05:20 RBC 3.68 X10^6/uL (4.7-6.0) L 06/27/16 05:20 Hgb 10.7 g/dL (13.5-18.0) L 06/27/16 05:20 Hct 31.6 % (42.0-54.0) L 06/27/16 05:20 MCV 86.0 fL (80.0-100.0) 06/27/16 05:20 MCH 29.0 pg (27.0-34.0) 06/27/16 05:20 MCHC 33.8 g/dL (33.0-35.0) 06/27/16 05:20 RDW 14.4 % (11.6-16.5) 06/27/16 05:20 Plt Count 181 X10^3/uL (150.0-450.0) 06/27/16 05:20 Plt Count Comment Adequate (ADEQUATE) 06/25/16 06:35 MPV 7.2 fL (7.4-11.0) L 06/27/16 05:20 Neut % 89.8 % (42.0-75.0) H 06/27/16 05:20 Lymph % 6.6 % (21.0-51.0) L 06/27/16 05:20 [place] % 3.5 % (0.0-13.0) 06/27/16 05:20 Eos % 0.0 % (0.9-2.9) L 06/27/16 05:20 Baso % 0.1 % (0.2-1.0) L 06/27/16 05:20 Neut # 8.4 x10^3/uL (2.2-4.8) H 06/27/16 05:20 Lymph # 0.6 X10^3/uL (1.3-2.9) L 06/27/16 05:20 [place] # 0.3 x10^3/uL (0.3-0.8) 06/27/16 05:20 Eos # 0.0 x10^3/uL (0.0-0.2) 06/27/16 05:20 Baso # 0.0 X10^3/uL (0.0-0.1) 06/27/16 05:20 Absolute Nucleated RBC 0.0 /100WBC 06/27/16 05:20 Total Counted 100 06/25/16 06:35 Neutrophils % (Manual) 92 % (39-76) H 06/25/16 06:35 Lymphocytes % (Manual) 6 % (13-43) L 06/25/16 06:35 Monocytes % (Manual) 2 % (4-9) L 06/25/16 06:35 Plt Morphology Comment Normal (NORMAL) 06/25/16 06:35 RBC Morphology Normal (NORMAL) 06/25/16 06:35 Sodium 141 mmol/L (136-145) 06/27/16 05:20 Corrected Sodium TNP 06/27/16 05:20 Potassium 5.1 mmol/L (3.5-5.1) 06/27/16 05:20 Chloride 107 mmol/L (98-107) 06/27/16 05:20 Carbon Dioxide 28.3 mmol/L (21-32) 06/27/16 05:20 BUN 20 mg/dL (7-18) H 06/27/16 05:20 Creatinine 0.98 mg/dL (0.70-1.30) 06/27/16 05:20 Est GFR (MDRD) Af Amer > 60 (>60) 06/27/16 05:20 Est GFR (MDRD) Non-Af > 60 (>60) 06/27/16 05:20 Glucose 108 mg/dL (65-99) H 06/27/16 05:20 Calcium 9.6 mg/dL (8.5-10.1) 06/27/16 05:20 Corrected Calcium 10.6 mg/dL (8.5-10.1) H 06/27/16 05:20 Total Bilirubin 0.30 mg/dL (0.2-1.0) 06/27/16 05:20 AST 13 Units/L (15-37) L 06/27/16 05:20 ALT 17 Units/L (12-78) 06/27/16 05:20 Alkaline Phosphatase 30 Units/L (46-116) L 06/27/16 05:20 C-Reactive Protein 8.80 mg/L (0-3.0) H 06/27/16 05:20 Total Protein 6.5 g/dL (6.4-8.2) 06/27/16 05:20 Albumin 2.8 g/dL (3.4-5.0) L 06/27/16 05:20 Globulin 3.7 g/dL (2.5-4.5) 06/27/16 05:20 Albumin/Globulin Ratio 0.8 Ratio (1.1-2.1) L 06/27/16 05:20 - Plan (1) Bronchopneumonia Status: Acute Plan: CONTINUE IV FORTAZ, LEVAQUIN, AGGRESSIVE NEBS, SUPPLEMENTAL OXGYEN, MONITOR LABS AND CHEST XRAY. (2) Hx of pulmonary embolus Status: Chronic (3) History of CVA (cerebrovascular accident) Status: Chronic (4) COPD (chronic obstructive pulmonary disease) Status: Acute Qualifiers: COPD type: chronic bronchitis Chronic bronchitis type: simple Emphysema type: E Qualified Code(s): J41.0 - Simple chronic bronchitis (5) GERD (gastroesophageal reflux disease) Status: Chronic Qualifiers: Esophagitis presence: esophagitis presence not specified Qualified Code(s) : K21.9 - Gastro-esophageal reflux disease without esophagitis (6) Hx of prostatic malignancy Status: Chronic
[2016-06-27] MEDS: TAMIFLU PO SCH ×2 (13:49→21:37)
[2016-06-27] MEDS: MAALOX or MYLANTA PO PRN (19:37)
[2016-06-27] MEDS: NORCO 7.5/325 MG TAB PO PRN (21:35)
[2016-06-27] MEDS: ARICEPT TAB 10 MG PO SCH (21:35)
[2016-06-27] MEDS: EFFEXOR TAB 75 MG (BID DOSING) PO SCH (21:35)
[2016-06-28] MEDS: DUONEB 0.5 MG/3 MG NEB SCH ×6 (01:05→21:23)
[2016-06-28] MEDS: NS 1/2 1000 ML IV 1,000 ML IV SCH ×2 (02:52→14:41)
[2016-06-28] MEDS: [UNRECOGNIZED DRUG - OTHER] PO SCH ×3 (05:33→22:13)
[2016-06-28] MEDS: FORTAZ or TAZICEF INJ 2 GM in NS 50 ML IV + SPIKE MINIBAG* 50 ML IV SCH ×3 (05:33→22:13)
[2016-06-28] MEDS: SOLU-Medrol 40 MG VIAL IVP SCH ×3 (05:33→22:10)
[2016-06-28 05:56] LABS: BASOPHILS % (AUTO) 0.1 % (0.2-1.0); HEMATOCRIT 30.7 % (42.0-54.0); HEMOGLOBIN 10.3 g/dL (13.5-18.0); LYMPHOCYTES # (AUTO) 0.7 X10^3/uL (1.3-2.9); MEAN CORPUSCULAR HEMOGLOBIN 29.3 pg (27.0-34.0); MEAN CORPUSCULAR HGB CONC 33.7 g/dL (33.0-35.0); MEAN CORPUSCULAR VOLUME 86.9 fL (80.0-100.0); MEAN PLATELET VOLUME 7.2 fL (7.4-11.0); MONOCYTES # (AUTO) 0.4 x10^3/uL (0.3-0.8); MONOCYTES % (AUTO) 5.7 % (0.0-13.0); NEUTROPHILS # (AUTO) 5.5 x10^3/uL (2.2-4.8); NEUTROPHILS % (AUTO) 84.2 % (42.0-75.0); PLATELET COUNT 149 X10^3/uL (150.0-450.0); RED BLOOD COUNT 3.53 X10^6/uL (4.7-6.0); RED CELL DISTRIBUTION WIDTH 14.4 % (11.6-16.5); WHITE BLOOD COUNT 6.6 X10^3/uL (3.6-10.0)
[2016-06-28 06:02] LABS: ALANINE AMINOTRANSFERASE 17 Units/L (12-78); ALBUMIN 2.8 g/dL (3.4-5.0); ALKALINE PHOSPHATASE 29 Units/L (46-116); ASPARTATE AMINO TRANSFERASE 12 Units/L (15-37); BLOOD UREA NITROGEN 19 mg/dL (7-18); CALCIUM 9.1 mg/dL (8.5-10.1); CARBON DIOXIDE 28.2 mmol/L (21-32); CHLORIDE 106 mmol/L (98-107); COR CA(FOR HYPOALB) 10.1 mg/dL (8.5-10.1); CREATININE 0.94 mg/dL (0.70-1.30); GLUCOSE 106 mg/dL (65-99); SODIUM 139 mmol/L (136-145); TOTAL PROTEIN 6.2 g/dL (6.4-8.2); eGFR BLACK RACES > 60 (>60); eGFR NON BLACK RACES > 60 (>60)
--- NOTE | 2016-06-28 06:52 | RAD ---
HISTORY: Pneumonia Study: Chest one view Comparison: June 27, 2016 Findings: The heart is enlarged. The aorta is ectatic. No congestive heart failure is noted. Lungs are mildly hypoinflated but free of acute alveolar infiltrates. There is minimal subsegmental atelectasis in th e left lung base. Bony thorax is unremarkable. IMPRESSION: Cardiomegaly without congestive heart failure No infiltrates Reported By:
[2016-06-28] MEDS: ALBUMIN HUMAN 25%- 100ML 100 ML IV SCH (10:28)
[2016-06-28] MEDS: ZANTAC PO SCH ×2 (10:31→22:12)
[2016-06-28] MEDS: GEODON PO SCH ×2 (10:32→22:10)
[2016-06-28] MEDS: TAMIFLU PO SCH ×2 (10:32→22:11)
[2016-06-28] MEDS: VITAMIN D3 PO SCH (10:32)
[2016-06-28] MEDS: LOPRESSOR TAB 25 MG PO SCH ×2 (10:33→22:12)
[2016-06-28] MEDS: SINGULAIR TAB 10 MG PO SCH (10:33)
[2016-06-28] MEDS: NAMENDA TAB 10 MG PO SCH ×2 (10:33→22:11)
[2016-06-28] MEDS: EFFEXOR TAB 37.5 MG (BID DOSING) PO SCH (10:34)
[2016-06-28] MEDS: ELIQUIS PO SCH ×2 (10:34→22:11)
[2016-06-28] MEDS: MUCINEX EXPECTORANT PO SCH ×2 (10:34→22:11)
[2016-06-28] MEDS: LEVAQUIN PREMIX IV 750 MG 750 MG/150 ML BAG IV SCH (10:49)
--- NOTE | 2016-06-28 13:58 | PCM.PROG ---
Progress Note - Progress Note for Day of Date: 06/28/16 - Subjective Subjective: PATIENT IS RECEIVING A BREATHING TREATMENT UPON ROUNDS. PATIENT CONTINUES WITH SHORTNESS OF BREATH AND CHEST CONGESTION. HE CONTINUES ON IV LEVAQUIN, FORTAZ, AND AGGRESSIVE NEB TREATMENTS FOR BRONCHOPNEUMONIA WITH FAILED OUTPATIENT TREATMENT. ON AUSCULTATION, LUNGS CONTINUE WITH SCATTERED WHEEZING AND RHONCHI THROUGHOUT. COUGH IS INTERMITTENT, NON-PRODUCTIVE. PATIENT AFEBRILE. CBC WNL EXCEPT: H/H 10.3/30.7, PLT COUNT 149. CMP WNL EXCEPT : BUN 19, GLUCOSE 106, TOT PROTEIN 6.2, ALBUMIN 2.8. WE WILL CONTINUE CURRENT TREATMENT AND FOLLOW UP IN AM WITH LABS AND CHEST XRAY. - Past Medical Family Social History Past Med/Fam/Surg Hx: No changes since H&P Allergies: Allergies No Known Drug Allergy Allergy (Verified 06/24/16 14:52) - Review of Systems ROS: No change since H&P - Vital Signs and I&O's Vital Signs: Temperature 97.9 F Pulse Rate [Left Brachial] 70 Pulse Rate [Right Brachial] 69 Pulse Rate 68 Respiratory Rate 20 Blood Pressure [Left Arm] 154/70 Blood Pressure [Right Arm] 152/72 Blood Pressure 137/85 O2 Sat by Pulse Oximetry 97 Intake and Output: Intake & Output 06/26/16 06/27/16 06/28/16 06/29/16 11:59 11:59 11:59 11:59 Intake Total 2552 2031 800 Balance 2552 2031 800 - Physical Exam Oriented: Person Eyes: Normal. negative: Blurred Vision, Diplopia, Discharge, Pain, Redness, Photophobia Ear: Normal. negative: Swelling, Ecchymosis, Hemotypanum, Abrasion, Laceration Nose: Normal. negative: Injected Throat: Red, Dry. negative: Tonsillar Hypertrophy, Exudate Respiratory: Generalized, Wheezes, Rhonchi Cardiovascular: Normal. negative: Murmur, Edema : Normal. negative: Dysuria, Hematuria, Frequency, Discharge, Bleeding, Auscultation: Bowel Sounds: Normal. negative: Bruit Palpation: Normal Tenderness: Normal. negative: Rebound, Guarding, Rigidity Skin: Decreased Turgur. negative: Diaphoresis, Wound, Bruising, Ecchymosis Musculoskeletal: Motor Deficit, Instability Psychiatric: Normal Mood Description: Calm, Appropriate Affect: Normal Speech Pattern: Aphasic - Laboratory and Diagnostics Result Diagrams: 06/28/16 05:10 06/28/16 05:10 Labs: 06/24/16 15:15 Blood Blood Culture - Preliminary 06/24/16 15:05 Blood Blood Culture - Preliminary 06/24/16 15:02 Sputum - Expectorated Sputum Sputum Culture - Final 06/24/16 15:02 Sputum - Expectorated Sputum - Final Laboratory WBC 6.6 X10^3/uL (3.6-10.0) 06/28/16 05:10 RBC 3.53 X10^6/uL (4.7-6.0) L 06/28/16 05:10 Hgb 10.3 g/dL (13.5-18.0) L 06/28/16 05:10 Hct 30.7 % (42.0-54.0) L 06/28/16 05:10 MCV 86.9 fL (80.0-100.0) 06/28/16 05:10 MCH 29.3 pg (27.0-34.0) 06/28/16 05:10 MCHC 33.7 g/dL (33.0-35.0) 06/28/16 05:10 RDW 14.4 % (11.6-16.5) 06/28/16 05:10 Plt Count 149 X10^3/uL (150.0-450.0) L 06/28/16 05:10 Plt Count Comment Adequate (ADEQUATE) 06/25/16 06:35 MPV 7.2 fL (7.4-11.0) L 06/28/16 05:10 Neut % 84.2 % (42.0-75.0) H 06/28/16 05:10 Lymph % 10.0 % (21.0-51.0) L 06/28/16 05:10 [place] % 5.7 % (0.0-13.0) 06/28/16 05:10 Eos % 0.0 % (0.9-2.9) L 06/28/16 05:10 Baso % 0.1 % (0.2-1.0) L 06/28/16 05:10 Neut # 5.5 x10^3/uL (2.2-4.8) H 06/28/16 05:10 Lymph # 0.7 X10^3/uL (1.3-2.9) L 06/28/16 05:10 [place] # 0.4 x10^3/uL (0.3-0.8) 06/28/16 05:10 Eos # 0.0 x10^3/uL (0.0-0.2) 06/28/16 05:10 Baso # 0.0 X10^3/uL (0.0-0.1) 06/28/16 05:10 Absolute Nucleated RBC 0.0 /100WBC 06/28/16 05:10 Total Counted 100 06/25/16 06:35 Neutrophils % (Manual) 92 % (39-76) H 06/25/16 06:35 Lymphocytes % (Manual) 6 % (13-43) L 06/25/16 06:35 Monocytes % (Manual) 2 % (4-9) L 06/25/16 06:35 Plt Morphology Comment Normal (NORMAL) 06/25/16 06:35 RBC Morphology Normal (NORMAL) 06/25/16 06:35 Sodium 139 mmol/L (136-145) 06/28/16 05:10 Corrected Sodium TNP 06/28/16 05:10 Potassium 5.1 mmol/L (3.5-5.1) 06/28/16 05:10 Chloride 106 mmol/L (98-107) 06/28/16 05:10 Carbon Dioxide 28.2 mmol/L (21-32) 06/28/16 05:10 BUN 19 mg/dL (7-18) H 06/28/16 05:10 Creatinine 0.94 mg/dL (0.70-1.30) 06/28/16 05:10 Est GFR (MDRD) Af Amer > 60 (>60) 06/28/16 05:10 Est GFR (MDRD) Non-Af > 60 (>60) 06/28/16 05:10 Glucose 106 mg/dL (65-99) H 06/28/16 05:10 Calcium 9.1 mg/dL (8.5-10.1) 06/28/16 05:10 Corrected Calcium 10.1 mg/dL (8.5-10.1) 06/28/16 05:10 Total Bilirubin 0.20 mg/dL (0.2-1.0) 06/28/16 05:10 AST 12 Units/L (15-37) L 06/28/16 05:10 ALT 17 Units/L (12-78) 06/28/16 05:10 Alkaline Phosphatase 29 Units/L (46-116) L 06/28/16 05:10 C-Reactive Protein 8.80 mg/L (0-3.0) H 06/27/16 05:20 Total Protein 6.2 g/dL (6.4-8.2) L 06/28/16 05:10 Albumin 2.8 g/dL (3.4-5.0) L 06/28/16 05:10 Globulin 3.4 g/dL (2.5-4.5) 06/28/16 05:10 Albumin/Globulin Ratio 0.8 Ratio (1.1-2.1) L 06/28/16 05:10 - Plan (1) Bronchopneumonia Status: Acute Plan: CONTINUE IV FORTAZ, LEVAQUIN, AGGRESSIVE NEBS, SUPPLEMENTAL OXGYEN, MONITOR LABS AND CHEST XRAY. (2) Hx of pulmonary embolus Status: Chronic (3) History of CVA (cerebrovascular accident) Status: Chronic (4) COPD (chronic obstructive pulmonary disease) Status: Chronic Qualifiers: COPD type: chronic bronchitis Chronic bronchitis type: simple Emphysema type: E Qualified Code(s): J41.0 - Simple chronic bronchitis (5) GERD (gastroesophageal reflux disease) Status: Chronic Qualifiers: Esophagitis presence: esophagitis presence not specified Qualified Code(s) : K21.9 - Gastro-esophageal reflux disease without esophagitis (6) Hx of prostatic malignancy Status: Chronic
[2016-06-28] MEDS ORDERED: NS 1/2 1000 ML IV 1,000 ML IV ONE (14:40)
[2016-06-28] MEDS ORDERED: FORTAZ or TAZICEF INJ ONE (21:12)
[2016-06-28] MEDS: ARICEPT TAB 10 MG PO SCH (22:10)
[2016-06-28] MEDS: EFFEXOR TAB 75 MG (BID DOSING) PO SCH (22:11)
[2016-06-28] MEDS: NORCO 7.5/325 MG TAB PO PRN (22:11)
[2016-06-29] MEDS: NS 1/2 1000 ML IV 1,000 ML IV SCH ×3 (00:05→22:16)
[2016-06-29] MEDS: DUONEB 0.5 MG/3 MG NEB SCH ×6 (01:10→20:07)
[2016-06-29 04:02] LABS: BASOPHILS % (AUTO) 0.1 % (0.2-1.0); HEMATOCRIT 30.6 % (42.0-54.0); HEMOGLOBIN 10.3 g/dL (13.5-18.0); LYMPHOCYTES # (AUTO) 0.5 X10^3/uL (1.3-2.9); LYMPHOCYTES % (AUTO) 7.5 % (21.0-51.0); MEAN CORPUSCULAR HEMOGLOBIN 29.1 pg (27.0-34.0); MEAN CORPUSCULAR HGB CONC 33.7 g/dL (33.0-35.0); MEAN CORPUSCULAR VOLUME 86.2 fL (80.0-100.0); MONOCYTES # (AUTO) 0.3 x10^3/uL (0.3-0.8); MONOCYTES % (AUTO) 4.9 % (0.0-13.0); NEUTROPHILS # (AUTO) 5.6 x10^3/uL (2.2-4.8); NEUTROPHILS % (AUTO) 87.5 % (42.0-75.0); PLATELET COUNT 149 X10^3/uL (150.0-450.0); RED BLOOD COUNT 3.55 X10^6/uL (4.7-6.0); RED CELL DISTRIBUTION WIDTH 14.3 % (11.6-16.5); WHITE BLOOD COUNT 6.4 X10^3/uL (3.6-10.0)
[2016-06-29 04:16] LABS: ALBUMIN 2.9 g/dL (3.4-5.0); ALKALINE PHOSPHATASE 27 Units/L (46-116); ASPARTATE AMINO TRANSFERASE 14 Units/L (15-37); BLOOD UREA NITROGEN 21 mg/dL (7-18); CALCIUM 9.2 mg/dL (8.5-10.1); CARBON DIOXIDE 29.4 mmol/L (21-32); COR CA(FOR HYPOALB) 10.1 mg/dL (8.5-10.1); CREATININE 1.03 mg/dL (0.70-1.30); GLUCOSE 114 mg/dL (65-99); TOTAL PROTEIN 6.1 g/dL (6.4-8.2); eGFR BLACK RACES > 60 (>60); eGFR NON BLACK RACES > 60 (>60)
[2016-06-29 04:52] LABS: ALANINE AMINOTRANSFERASE 23 Units/L (12-78)
[2016-06-29 05:02] LABS: CHLORIDE 105 mmol/L (98-107); COR NA(FOR HYPERGLY) 139 mmol/L (136-145); SODIUM 139 mmol/L (136-145)
[2016-06-29] MEDS ORDERED: FORTAZ or TAZICEF INJ ONE (05:03)
[2016-06-29] MEDS ORDERED: NS 50 ML IV 50 ML IV ONE (05:04)
[2016-06-29] MEDS ORDERED: NS 1/2 1000 ML IV 1,000 ML IV ONE ×2 (05:05→21:49)
[2016-06-29] MEDS: SOLU-Medrol 40 MG VIAL IVP SCH ×3 (05:31→22:21)
[2016-06-29] MEDS: FORTAZ or TAZICEF INJ 2 GM in NS 50 ML IV + SPIKE MINIBAG* 50 ML IV SCH ×3 (05:31→22:17)
[2016-06-29] MEDS: [UNRECOGNIZED DRUG - OTHER] PO SCH ×3 (05:31→22:22)
--- NOTE | 2016-06-29 07:09 | RAD ---
HISTORY: Follow up pneumonia Study: Chest one view Comparison: June 28, 2016 Findings: The heart remains enlarged. No congestive heart failure is noted. The aorta is mildly ectatic. The l ungs are free of acute alveolar infiltrates. No pleural effusions are identified. There is subsegmen rodney atelectasis at the left lung base. The bony thorax is unremarkable. IMPRESSION: Cardiomegaly without congestive heart failure Subsegmental atelectasis left lung base Reported By:
[2016-06-29] MEDS: ALBUMIN HUMAN 25%- 100ML 100 ML IV SCH (09:06)
[2016-06-29] MEDS: LEVAQUIN PREMIX IV 750 MG 750 MG/150 ML BAG IV SCH (09:06)
[2016-06-29] MEDS: SINGULAIR TAB 10 MG PO SCH (09:10)
[2016-06-29] MEDS: GEODON PO SCH ×2 (09:10→22:20)
[2016-06-29] MEDS: NAMENDA TAB 10 MG PO SCH ×2 (09:10→22:22)
[2016-06-29] MEDS: EFFEXOR TAB 37.5 MG (BID DOSING) PO SCH (09:11)
[2016-06-29] MEDS: LOPRESSOR TAB 25 MG PO SCH ×2 (09:11→22:20)
[2016-06-29] MEDS: VITAMIN D3 PO SCH (09:11)
[2016-06-29] MEDS: TAMIFLU PO SCH ×2 (09:11→22:19)
[2016-06-29] MEDS: ELIQUIS PO SCH ×2 (09:11→22:20)
[2016-06-29] MEDS: MUCINEX EXPECTORANT PO SCH ×2 (09:11→22:20)
[2016-06-29] MEDS: NORCO 7.5/325 MG TAB PO PRN ×2 (09:11→17:01)
[2016-06-29] MEDS: ZANTAC PO SCH ×2 (09:17→22:19)
--- NOTE | 2016-06-29 13:49 | PCM.PROG ---
Progress Note - Progress Note for Day of Date: 06/29/16 - Subjective Subjective: PATIENT IS LYING IN BED ON MORNING ROUNDS. PATIENT CONTINUES WITH SHORTNESS OF BREATH AND CHEST CONGESTION. HE CONTINUES ON IV LEVAQUIN, FORTAZ, AND AGGRESSIVE NEB TREATMENTS FOR BRONCHOPNEUMONIA WITH FAILED OUTPATIENT TREATMENT. ON AUSCULTATION, LUNGS CONTINUE WITH SCATTERED WHEEZING AND RHONCHI THROUGHOUT. COUGH IS NON-PRODUCTIVE. PATIENT AFEBRILE. CBC WNL EXCEPT: H/H 10.3/30.6, PLT COUNT 149. CMP WNL EXCEPT: BUN 21, GLUCOSE 114, TOT PROTEIN 6.1 , ALBUMIN 2.9. CHEST XRAY REPORTS SUBSEGMENTAL ATELECTASIS LEFT LUNG BASE. WE WILL CONTINUE CURRENT TREATMENT AND FOLLOW UP IN AM WITH LABS AND CHEST XRAY. - Past Medical Family Social History Past Med/Fam/Surg Hx: No changes since H&P Allergies: Allergies No Known Drug Allergy Allergy (Verified 06/24/16 14:52) - Review of Systems ROS: No change since H&P - Vital Signs and I&O's Vital Signs: Temperature 97.6 F Pulse Rate [Left Brachial] 59 Pulse Rate [Right Brachial] 71 Pulse Rate 74 Respiratory Rate 18 Blood Pressure [Left Arm] 149/70 Blood Pressure [Right Arm] 144/75 Blood Pressure 137/85 O2 Sat by Pulse Oximetry 96 Intake and Output: Intake & Output 06/27/16 06/28/16 06/29/16 06/30/16 11:59 11:59 11:59 11:59 Intake Total 2030 800 1492 Balance 2030 800 1492 - Physical Exam Oriented: Person Eyes: Normal. negative: Blurred Vision, Diplopia, Discharge, Pain, Redness, Photophobia Ear: Normal. negative: Swelling, Ecchymosis, Hemotypanum, Abrasion, Laceration Nose: Normal. negative: Injected Throat: Red, Dry. negative: Tonsillar Hypertrophy, Exudate Respiratory: Generalized, Wheezes, Rhonchi Cardiovascular: Normal. negative: Murmur, Edema : Normal. negative: Dysuria, Hematuria, Frequency, Discharge, Bleeding, Auscultation: Bowel Sounds: Normal. negative: Bruit Palpation: Normal. negative: Spleen Enlarged, Liver Enlarged, Mass Pulsatile Tenderness: Normal. negative: Rebound, Guarding, Rigidity Skin: Decreased Turgur. negative: Diaphoresis, Wound, Bruising, Ecchymosis Musculoskeletal: Motor Deficit, Instability Psychiatric: Normal Mood Description: Calm, Appropriate Affect: Normal Speech Pattern: Aphasic - Laboratory and Diagnostics Result Diagrams: 06/29/16 03:35 06/29/16 03:35 Labs: 06/24/16 15:15 Blood Blood Culture - Final 06/24/16 15:05 Blood Blood Culture - Final 06/24/16 15:02 Sputum - Expectorated Sputum Sputum Culture - Final 06/24/16 15:02 Sputum - Expectorated Sputum - Final Laboratory WBC 6.4 X10^3/uL (3.6-10.0) 06/29/16 03:35 RBC 3.55 X10^6/uL (4.7-6.0) L 06/29/16 03:35 Hgb 10.3 g/dL (13.5-18.0) L 06/29/16 03:35 Hct 30.6 % (42.0-54.0) L 06/29/16 03:35 MCV 86.2 fL (80.0-100.0) 06/29/16 03:35 MCH 29.1 pg (27.0-34.0) 06/29/16 03:35 MCHC 33.7 g/dL (33.0-35.0) 06/29/16 03:35 RDW 14.3 % (11.6-16.5) 06/29/16 03:35 Plt Count 149 X10^3/uL (150.0-450.0) L 06/29/16 03:35 Plt Count Comment Adequate (ADEQUATE) 06/25/16 06:35 MPV 7.0 fL (7.4-11.0) L 06/29/16 03:35 Neut % 87.5 % (42.0-75.0) H 06/29/16 03:35 Lymph % 7.5 % (21.0-51.0) L 06/29/16 03:35 [place] % 4.9 % (0.0-13.0) 06/29/16 03:35 Eos % 0.0 % (0.9-2.9) L 06/29/16 03:35 Baso % 0.1 % (0.2-1.0) L 06/29/16 03:35 Neut # 5.6 x10^3/uL (2.2-4.8) H 06/29/16 03:35 Lymph # 0.5 X10^3/uL (1.3-2.9) L 06/29/16 03:35 [place] # 0.3 x10^3/uL (0.3-0.8) 06/29/16 03:35 Eos # 0.0 x10^3/uL (0.0-0.2) 06/29/16 03:35 Baso # 0.0 X10^3/uL (0.0-0.1) 06/29/16 03:35 Absolute Nucleated RBC 0.1 /100WBC 06/29/16 03:35 Total Counted 100 06/25/16 06:35 Neutrophils % (Manual) 92 % (39-76) H 06/25/16 06:35 Lymphocytes % (Manual) 6 % (13-43) L 06/25/16 06:35 Monocytes % (Manual) 2 % (4-9) L 06/25/16 06:35 Plt Morphology Comment Normal (NORMAL) 06/25/16 06:35 RBC Morphology Normal (NORMAL) 06/25/16 06:35 Sodium 139 mmol/L (136-145) 06/29/16 03:35 Corrected Sodium 139 mmol/L (136-145) 06/29/16 03:35 Potassium 5.0 mmol/L (3.5-5.1) 06/29/16 03:35 Chloride 105 mmol/L (98-107) 06/29/16 03:35 Carbon Dioxide 29.4 mmol/L (21-32) 06/29/16 03:35 BUN 21 mg/dL (7-18) H 06/29/16 03:35 Creatinine 1.03 mg/dL (0.70-1.30) 06/29/16 03:35 Est GFR (MDRD) Af Amer > 60 (>60) 06/29/16 03:35 Est GFR (MDRD) Non-Af > 60 (>60) 06/29/16 03:35 Glucose 114 mg/dL (65-99) H 06/29/16 03:35 Calcium 9.2 mg/dL (8.5-10.1) 06/29/16 03:35 Corrected Calcium 10.1 mg/dL (8.5-10.1) 06/29/16 03:35 Total Bilirubin 0.30 mg/dL (0.2-1.0) 06/29/16 03:35 AST 14 Units/L (15-37) L 06/29/16 03:35 ALT 23 Units/L (12-78) 06/29/16 03:35 Alkaline Phosphatase 27 Units/L (46-116) L 06/29/16 03:35 C-Reactive Protein 8.80 mg/L (0-3.0) H 06/27/16 05:20 Total Protein 6.1 g/dL (6.4-8.2) L 06/29/16 03:35 Albumin 2.9 g/dL (3.4-5.0) L 06/29/16 03:35 Globulin 3.2 g/dL (2.5-4.5) 06/29/16 03:35 Albumin/Globulin Ratio 0.9 Ratio (1.1-2.1) L 06/29/16 03:35 - Plan (1) Bronchopneumonia Status: Acute Plan: CONTINUE IV FORTAZ, LEVAQUIN, AGGRESSIVE NEBS, SUPPLEMENTAL OXGYEN, MONITOR LABS AND CHEST XRAY. (2) Hx of pulmonary embolus Status: Chronic (3) History of CVA (cerebrovascular accident) Status: Chronic (4) COPD (chronic obstructive pulmonary disease) Status: Chronic Qualifiers: COPD type: chronic bronchitis Chronic bronchitis type: simple Emphysema type: E Qualified Code(s): J41.0 - Simple chronic bronchitis (5) GERD (gastroesophageal reflux disease) Status: Chronic Qualifiers: Esophagitis presence: esophagitis presence not specified Qualified Code(s) : K21.9 - Gastro-esophageal reflux disease without esophagitis (6) Hx of prostatic malignancy Status: Chronic
[2016-06-29] MEDS: ARICEPT TAB 10 MG PO SCH (22:20)
[2016-06-29] MEDS: EFFEXOR TAB 75 MG (BID DOSING) PO SCH (22:21)
[2016-06-29] MEDS: TUSSIONEX PENNKINETIC SUSP PO PRN (22:22)
[2016-06-30] MEDS: DUONEB 0.5 MG/3 MG NEB SCH ×6 (01:16→21:16)
[2016-06-30 05:55] LABS: BASOPHILS % (AUTO) 0.1 % (0.2-1.0); HEMATOCRIT 31.9 % (42.0-54.0); HEMOGLOBIN 10.9 g/dL (13.5-18.0); LYMPHOCYTES # (AUTO) 0.6 X10^3/uL (1.3-2.9); LYMPHOCYTES % (AUTO) 7.9 % (21.0-51.0); MEAN CORPUSCULAR HEMOGLOBIN 29.1 pg (27.0-34.0); MEAN CORPUSCULAR HGB CONC 34.1 g/dL (33.0-35.0); MEAN CORPUSCULAR VOLUME 85.4 fL (80.0-100.0); MEAN PLATELET VOLUME 7.3 fL (7.4-11.0); MONOCYTES # (AUTO) 0.3 x10^3/uL (0.3-0.8); MONOCYTES % (AUTO) 4.6 % (0.0-13.0); NEUTROPHILS # (AUTO) 6.2 x10^3/uL (2.2-4.8); NEUTROPHILS % (AUTO) 87.4 % (42.0-75.0); PLATELET COUNT 151 X10^3/uL (150.0-450.0); RED BLOOD COUNT 3.74 X10^6/uL (4.7-6.0); RED CELL DISTRIBUTION WIDTH 14.1 % (11.6-16.5); WHITE BLOOD COUNT 7.1 X10^3/uL (3.6-10.0)
[2016-06-30] MEDS ORDERED: FORTAZ or TAZICEF INJ ONE (05:55)
[2016-06-30 06:06] LABS: ALANINE AMINOTRANSFERASE 24 Units/L (12-78); ALBUMIN 2.7 g/dL (3.4-5.0); ALKALINE PHOSPHATASE 27 Units/L (46-116); ASPARTATE AMINO TRANSFERASE 14 Units/L (15-37); BLOOD UREA NITROGEN 19 mg/dL (7-18); CALCIUM 9.1 mg/dL (8.5-10.1); CARBON DIOXIDE 28.4 mmol/L (21-32); CHLORIDE 106 mmol/L (98-107); COR CA(FOR HYPOALB) 10.1 mg/dL (8.5-10.1); COR NA(FOR HYPERGLY) 139 mmol/L (136-145); GLUCOSE 112 mg/dL (65-99); SODIUM 139 mmol/L (136-145); TOTAL PROTEIN 5.8 g/dL (6.4-8.2); eGFR BLACK RACES > 60 (>60); eGFR NON BLACK RACES > 60 (>60)
[2016-06-30] MEDS: FORTAZ or TAZICEF INJ 2 GM in NS 50 ML IV + SPIKE MINIBAG* 50 ML IV SCH ×3 (06:09→21:47)
[2016-06-30] MEDS: SOLU-Medrol 40 MG VIAL IVP SCH ×3 (06:10→21:50)
[2016-06-30] MEDS: [UNRECOGNIZED DRUG - OTHER] PO SCH ×3 (06:10→21:50)
[2016-06-30 06:14] LABS: BAND NEUTROPHILS % 2 % (0-10); PLATELET MORPHOLOGY COMMENT NORMAL (NORMAL)
--- NOTE | 2016-06-30 07:14 | RAD ---
HISTORY: Follow up pneumonia Study: Chest one view Comparison: June 29, 2016 Findings: The heart remains enlarged. No congestive heart failure is noted. No acute alveolar infiltrates are identified. No pleural effusions are identified. Subsegmental atelectasis in the left lung base is u nchanged. The bony thorax is unremarkable. IMPRESSION: Cardiomegaly without congestive heart failure No infiltrates Subsegmental atelectasis left lung base, stable Reported By:
[2016-06-30] MEDS: LEVAQUIN PREMIX IV 750 MG 750 MG/150 ML BAG IV SCH (08:56)
[2016-06-30] MEDS: ALBUMIN HUMAN 25%- 100ML 100 ML IV SCH (08:56)
[2016-06-30] MEDS: TAMIFLU PO SCH ×2 (08:57→21:50)
[2016-06-30] MEDS: ZANTAC PO SCH ×2 (08:57→21:48)
[2016-06-30] MEDS: ELIQUIS PO SCH ×2 (08:57→21:50)
[2016-06-30] MEDS: EFFEXOR TAB 37.5 MG (BID DOSING) PO SCH (08:57)
[2016-06-30] MEDS: VITAMIN D3 PO SCH (08:57)
[2016-06-30] MEDS: SINGULAIR TAB 10 MG PO SCH (08:57)
[2016-06-30] MEDS: GEODON PO SCH ×2 (08:58→21:48)
[2016-06-30] MEDS: NAMENDA TAB 10 MG PO SCH ×2 (08:58→21:50)
[2016-06-30] MEDS: LOPRESSOR TAB 25 MG PO SCH ×2 (08:58→21:48)
[2016-06-30] MEDS: MUCINEX EXPECTORANT PO SCH ×2 (08:58→21:49)
[2016-06-30] MEDS: NS 1/2 1000 ML IV 1,000 ML IV SCH ×2 (10:01→11:54)
[2016-06-30] MEDS ORDERED: NS 1/2 1000 ML IV 1,000 ML IV ONE (11:51)
[2016-06-30] MEDS: MAALOX or MYLANTA PO PRN (21:47)
[2016-06-30] MEDS: TUSSIONEX PENNKINETIC SUSP PO PRN (21:49)
[2016-06-30] MEDS: NORCO 7.5/325 MG TAB PO PRN (21:49)
[2016-06-30] MEDS: EFFEXOR TAB 75 MG (BID DOSING) PO SCH (21:49)
[2016-06-30] MEDS: ARICEPT TAB 10 MG PO SCH (21:50)
[2016-07-01] MEDS: DUONEB 0.5 MG/3 MG NEB SCH ×4 (01:25→12:00)
[2016-07-01] MEDS: NS 1/2 1000 ML IV 1,000 ML IV SCH ×3 (02:28→14:23)
--- NOTE | 2016-07-01 06:17 | RAD ---
HISTORY: Follow up pneumonia Study: Chest one view Comparison: June 30, 2016 Findings: The heart is enlarged. No congestive heart failure is noted. No acute alveolar infiltrates or pleura l effusions are identified. Subsegmental atelectasis is present in the right mid lung and left lung base. No pleural effusions are identified. The bony thorax is unremarkable. IMPRESSION: Cardiomegaly without congestive heart failure No infiltrates Right mid lung and left basilar subsegmental atelectasis Reported By:
[2016-07-01 06:18] LABS: BASOPHILS % (AUTO) 0.1 % (0.2-1.0); HEMATOCRIT 33.6 % (42.0-54.0); HEMOGLOBIN 11.4 g/dL (13.5-18.0); LYMPHOCYTES # (AUTO) 0.7 X10^3/uL (1.3-2.9); LYMPHOCYTES % (AUTO) 7.2 % (21.0-51.0); MEAN CORPUSCULAR HEMOGLOBIN 29.1 pg (27.0-34.0); MEAN CORPUSCULAR HGB CONC 34.1 g/dL (33.0-35.0); MEAN CORPUSCULAR VOLUME 85.4 fL (80.0-100.0); MEAN PLATELET VOLUME 7.4 fL (7.4-11.0); MONOCYTES # (AUTO) 0.6 x10^3/uL (0.3-0.8); MONOCYTES % (AUTO) 5.4 % (0.0-13.0); NEUTROPHILS % (AUTO) 87.3 % (42.0-75.0); PLATELET COUNT 162 X10^3/uL (150.0-450.0); RED BLOOD COUNT 3.93 X10^6/uL (4.7-6.0); RED CELL DISTRIBUTION WIDTH 14.5 % (11.6-16.5); WHITE BLOOD COUNT 10.4 X10^3/uL (3.6-10.0)
[2016-07-01 06:50] LABS: ALANINE AMINOTRANSFERASE 27 Units/L (12-78); ALBUMIN 2.7 g/dL (3.4-5.0); ALKALINE PHOSPHATASE 35 Units/L (46-116); ASPARTATE AMINO TRANSFERASE 15 Units/L (15-37); BLOOD UREA NITROGEN 27 mg/dL (7-18); CALCIUM 9.1 mg/dL (8.5-10.1); CARBON DIOXIDE 29.4 mmol/L (21-32); CHLORIDE 104 mmol/L (98-107); COR CA(FOR HYPOALB) 10.1 mg/dL (8.5-10.1); COR NA(FOR HYPERGLY) 139 mmol/L (136-145); CREATININE 0.95 mg/dL (0.70-1.30); GLUCOSE 119 mg/dL (65-99); SODIUM 139 mmol/L (136-145); TOTAL PROTEIN 5.9 g/dL (6.4-8.2); eGFR BLACK RACES > 60 (>60); eGFR NON BLACK RACES > 60 (>60)
[2016-07-01] MEDS: FORTAZ or TAZICEF INJ 2 GM in NS 50 ML IV + SPIKE MINIBAG* 50 ML IV SCH ×2 (07:12→13:30)
[2016-07-01] MEDS: SOLU-Medrol 40 MG VIAL IVP SCH ×2 (07:13→13:30)
[2016-07-01] MEDS: [UNRECOGNIZED DRUG - OTHER] PO SCH ×2 (07:13→13:31)
[2016-07-01 07:48] LABS: BAND NEUTROPHILS % 2 % (0-10)
[2016-07-01 08:03] LABS: PLATELET MORPHOLOGY COMMENT NORMAL (NORMAL)
[2016-07-01] MEDS: EFFEXOR TAB 37.5 MG (BID DOSING) PO SCH (08:30)
[2016-07-01] MEDS: VITAMIN D3 PO SCH (08:30)
[2016-07-01] MEDS: SINGULAIR TAB 10 MG PO SCH (08:30)
[2016-07-01] MEDS: MUCINEX EXPECTORANT PO SCH (08:30)
[2016-07-01] MEDS: ALBUMIN HUMAN 25%- 100ML 100 ML IV SCH (08:30)
[2016-07-01] MEDS: ELIQUIS PO SCH (08:30)
[2016-07-01] MEDS: NAMENDA TAB 10 MG PO SCH (08:30)
[2016-07-01] MEDS: TAMIFLU PO SCH (08:30)
[2016-07-01] MEDS: GEODON PO SCH (08:30)
[2016-07-01] MEDS: ZANTAC PO SCH (08:30)
[2016-07-01] MEDS: LOPRESSOR TAB 25 MG PO SCH (08:30)
[2016-07-01] MEDS: LEVAQUIN PREMIX IV 750 MG 750 MG/150 ML BAG IV SCH (08:30)
[2016-07-01] MEDS ORDERED: NS 1/2 1000 ML IV 1,000 ML IV ONE (08:32)
[2016-07-01 12:17] VITALS: BP 140/71
== END 2016-07-01 14:40 | disposition home or self-care (01) | DRG 194 ==
LOC: MED/SURG 12:59
PROVIDERS: ADMIT Internal Medicine; ATTEND Internal Medicine
DX: J18.1 Lobar pneumonia, unspecified organism (principal); J98.11 Atelectasis; R06.02 Shortness of breath; J41.0 Simple chronic bronchitis; K21.9 Gastro-esophageal reflux disease without esophagitis; R53.1 Weakness; I10 Essential (primary) hypertension; E11.65 Type 2 diabetes mellitus with hyperglycemia; Z85.46 Personal history of malignant neoplasm of prostate; Z86.73 Personal history of transient ischemic attack (TIA), and cerebral infarction without residual deficits; R26.89 Other abnormalities of gait and mobility; R13.11 Dysphagia, oral phase
CPT/HCPCS: 36415; 71010; 71020; 80053; 85025; 86140; 87040; 87070; 87205; 94640; 94669; 94760; A4222; G9035; P9047; J0713; J1956; J2920; J7620

== ENCOUNTER 2016-09-09 12:07 | Emergency (ER) | payer OTHER ==
[2016-09-09 12:13] VITALS: BP 101/69; BMI 28.2
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
[2016-09-09 12:58] LABS: BASOPHILS # (AUTO) 0.1 X10^3/uL (0.0-0.1); BASOPHILS % (AUTO) 1.5 % (0.2-1.0); EOSINOPHILS # (AUTO) 0.2 x10^3/uL (0.0-0.2); EOSINOPHILS % (AUTO) 2.6 % (0.9-2.9); HEMATOCRIT 34.3 % (42.0-54.0); HEMOGLOBIN 11.7 g/dL (13.5-18.0); LYMPHOCYTES # (AUTO) 2.1 X10^3/uL (1.3-2.9); LYMPHOCYTES % (AUTO) 33.8 % (21.0-51.0); MEAN CORPUSCULAR HGB CONC 34.2 g/dL (33.0-35.0); MEAN CORPUSCULAR VOLUME 84.8 fL (80.0-100.0); MEAN PLATELET VOLUME 7.4 fL (7.4-11.0); MONOCYTES # (AUTO) 0.8 x10^3/uL (0.3-0.8); MONOCYTES % (AUTO) 12.4 % (0.0-13.0); NEUTROPHILS # (AUTO) 3.1 x10^3/uL (2.2-4.8); NEUTROPHILS % (AUTO) 49.7 % (42.0-75.0); PLATELET COUNT 165 X10^3/uL (150.0-450.0); RED BLOOD COUNT 4.04 X10^6/uL (4.7-6.0); RED CELL DISTRIBUTION WIDTH 14.7 % (11.6-16.5); WHITE BLOOD COUNT 6.2 X10^3/uL (3.6-10.0)
[2016-09-09 13:07] LABS: ALANINE AMINOTRANSFERASE 17 Units/L (12-78); ALBUMIN 3.1 g/dL (3.4-5.0); ALKALINE PHOSPHATASE 40 Units/L (46-116); ASPARTATE AMINO TRANSFERASE 19 Units/L (15-37); BLOOD UREA NITROGEN 14 mg/dL (7-18); CALCIUM 8.7 mg/dL (8.5-10.1); CARBON DIOXIDE 27.6 mmol/L (21-32); CHLORIDE 105 mmol/L (98-107); COR CA(FOR HYPOALB) 9.4 mg/dL (8.5-10.1); CREATININE 0.96 mg/dL (0.70-1.30); GLUCOSE 87 mg/dL (65-99); SODIUM 139 mmol/L (136-145); TOTAL PROTEIN 6.9 g/dL (6.4-8.2); eGFR BLACK RACES > 60 (>60); eGFR NON BLACK RACES > 60 (>60)
--- NOTE | 2016-09-09 13:17 | RAD ---
HISTORY: Cough, congestion Study: Chest one view Comparison: July 01, 2016 Findings: The trachea is midline. The cardiac silhouette is upper limits normal in size. No congestive heart failure is noted.. The lungs are clear without focal infiltrate or effusion. The bony thorax is un remarkable. IMPRESSION: 1. No acute cardiopulmonary disease. Reported By:
== END 2016-09-09 13:50 | disposition home or self-care (01) ==
LOC: ER 12:15
DX: R05 Cough (principal)
CPT/HCPCS: 36415; 71010; 80053; 85025; 99282

== ENCOUNTER 2016-12-13 23:21 | Inpatient (IN) | payer OTHER ==
[~2016-12-13 23:21] MED LIST: DUONEB 0.5 MG/3 MG ONE
[2016-12-13] MEDS ORDERED: DUONEB 0.5 MG/3 MG NEB ONE (23:35)
[2016-12-13] MEDS ORDERED: SOLU-Medrol 125 MG VIAL IVP ONE (23:35)
[2016-12-13] MEDS ORDERED: SOLU-Medrol 125 MG VIAL ONE (23:36)
[2016-12-13] MEDS ORDERED: XOPENEX 1.25 MG/3 ML NEBULE NEB ONE ×2 (23:37→23:38)
[2016-12-13] MEDS ORDERED: LASIX IVP ONE ×2 (23:38→23:39)
[2016-12-13 23:45] LABS: ABG HCO3 27.1 mmol/L (22-26)
[2016-12-13 23:46] LABS: ABG ALLEN TEST POS
[2016-12-13 23:51] LABS: BASOPHILS # (AUTO) 0.1 X10^3/uL (0.0-0.1); BASOPHILS % (AUTO) 1.2 % (0.2-1.0); EOSINOPHILS # (AUTO) 0.1 x10^3/uL (0.0-0.2); HEMATOCRIT 34.5 % (42.0-54.0); HEMOGLOBIN 11.6 g/dL (13.5-18.0); LYMPHOCYTES # (AUTO) 0.9 X10^3/uL (1.3-2.9); LYMPHOCYTES % (AUTO) 11.9 % (21.0-51.0); MEAN CORPUSCULAR HEMOGLOBIN 28.2 pg (27.0-34.0); MEAN CORPUSCULAR HGB CONC 33.7 g/dL (33.0-35.0); MEAN CORPUSCULAR VOLUME 83.5 fL (80.0-100.0); MEAN PLATELET VOLUME 7.4 fL (7.4-11.0); MONOCYTES # (AUTO) 0.6 x10^3/uL (0.3-0.8); MONOCYTES % (AUTO) 7.8 % (0.0-13.0); NEUTROPHILS # (AUTO) 5.7 x10^3/uL (2.2-4.8); NEUTROPHILS % (AUTO) 78.1 % (42.0-75.0); PLATELET COUNT 162 X10^3/uL (150.0-450.0); RED BLOOD COUNT 4.13 X10^6/uL (4.7-6.0); RED CELL DISTRIBUTION WIDTH 15.1 % (11.6-16.5); WHITE BLOOD COUNT 7.4 X10^3/uL (3.6-10.0)
[2016-12-14 00:02] LABS: ALANINE AMINOTRANSFERASE 19 Units/L (12-78); ALKALINE PHOSPHATASE 59 Units/L (46-116); ASPARTATE AMINO TRANSFERASE 20 Units/L (15-37); BLOOD UREA NITROGEN 15 mg/dL (7-18); CARBON DIOXIDE 25.2 mmol/L (21-32); CHLORIDE 105 mmol/L (98-107); COR CA(FOR HYPOALB) 9.8 mg/dL (8.5-10.1); COR NA(FOR HYPERGLY) 140 mmol/L (136-145); SODIUM 139 mmol/L (136-145); eGFR BLACK RACES > 60 (>60); eGFR NON BLACK RACES 53 (>60)
[2016-12-14] MEDS ORDERED: ATIVAN INJ 2 MG VIAL IVP ONE (00:03)
[2016-12-14] MEDS ORDERED: ATIVAN INJ 2 MG VIAL ONE (00:05)
--- NOTE | 2016-12-14 01:40 | DR.GENAD ---
HPI - PCP Primary Care Physician: angie - HPI Comment HPI Comment: GOT WORSE TONIGHT. MAY HAVE ASPIRATED ALSO. POST CVA WITH RESIDUAL RT SIDED WEAKNESS, DYSPHAGIA AND DYSARTHRIA. - Complaint/Symptoms Chief Complaint Doctors Comments: RESPIRATORY DISTRESS, TACHYCARDIA AND CHEST PAIN TIMES ONE DAY. HE IS BEING WHEEZING. HE HAD FLU-LIKE SYNDROME. Chief Complaint:: pt having flulike sx sob wheezing - Nurses notes reviewed Nurses Notes Review: Yes - Source History Provided: Family Member - Mode of Arrival Mode of Arrival: Wheelchair - Timing Onset of Chief Complaint: 12/12/16 Came on: Suddenly - Duration Duration: Constant Duration: Days - Severity Severity: Moderate PMH - PMH Past Medical History: Yes Past Medical History: CVA, GERD, Hypertension Past Surgical History: Yes Surgical History: Cholecystectomy - Family History History of Family Medical Conditions: Yes Family Medical History: Cancer - Social History Do you use any recreational Drugs:: No Lives With: Family Lives Where: Home - infectious screening In the last 2 months have you had wt loss of >10#?: NO Have you had fever, night sweats or hemotysis?: No Have you traveled outside the country in the last 6 months?: No Isolation: Standard ROS - Review of Systems Constitutional: Weakness, Fatigue. negative: Chills, Fever Eyes: negative: Eye Pain, Discharge ENTM: Nose Discharge, Nose Congestion, Throat Pain. negative: Ear Pain Respiratoy: Productive Cough, Short of Breath, Wheezing, Hemoptysis Cardiovascular: No Symptoms Reported, Chest Pain, Palpitations Gastrointestinal/Abdominal: negative: Abdominal Pain, Diarrhea, Nausea, Vomiting Genitourinary: negative: Dysuria, Frequency, Hematuria Neurological: Pre-existing Deficit (RT SIDED WEAKNESS), Problems Walking, Speech Problem, Other (DYSPHAGIA) Musculoskeletal: Muscle Pain Integumentary: Other (SWELLING AND REDNESS RLE.) Hematologic/Lymphatic: Blood Clots (IN THE PAST.), Easy Bleeding, Easy Bruising Endocrine: No Symptoms Reported All Other Systems: Reviewed and Negative PE - Vital Signs Vitals: Temperature 1008 F Pulse Rate [Right Brachial] 115 Pulse Rate 121 Respiratory Rate 24 Blood Pressure [Left Arm] 117/72 Blood Pressure [Right Arm] 144/75 Blood Pressure 152/82 O2 Sat by Pulse Oximetry 98 - General Limitations: Other (RESPIRATORY DISTRESS LIMIT TALKING) General Appearance: Alert, In Distress - Head Head Exam: Normal Inspection - Eyes Eye exam: Normal Appearance - ENT ENT Exam: Normal External Ear Exam External Ear Exam: Normal External Inspection TM/Canal Exam: Bilateral Normal Nose Exam: Normal Nose Exam Mouth Exam: Normal Inspection Throat Exam: Tonsillar Erythema. negative: Tonsillomegaly, Tonsillar Exudate - Neck Neck Exam: Trachea Midline. negative: Tenderness, Meningismus, Lymphadenopathy - Chest Chest Inspection: Symmetric Chest Wall Rise - Respiratory Respiratory Exam: Respiratory Distress Respiratory Exam: Bilateral Wheezing, Bilateral Rhonchi, Upper Wheezing, Upper Rhonchi, Lower Wheezing, Lower Rhonchi - Cardiovascular Cardiovascular Exam: Regular Rate, Tachycardia, Normal Heart Sounds - Abdominal Exam Abdominal Exam: Normal Bowel Sounds, Soft. negative: Tenderness - Extremities Extremities Exam: Tenderness (SWELLING, REDNESS AND TENDERNESS RLE. PULSE INTACT. LILI.) - Back Back Exam: Paraspinal Tenderness (LOWER BACK) - Neurologic Neurological Exam: Alert, Oriented X3, Motor Sensory Deficit (RT SIDED WEAKNESS FROM PREVIOUS STROKE.), Other (DYSARTHRIA, DYSPHAGIA). negative: CN II-XII Intact - Psychiatric Psychiatric Exam: Anxious - Skin Skin Exam: Erythema MDM - Additional Information Additional Information Obtained From: Family - Differential Diagnosis Differential Diagnosis: RESP DISTRESS, COPD EXACERBATION, ASPIRATION, RLE CELLULITIS, RULE OUT DVT. Course - Treatment Treatment: SEE ORDERS. NRB TREATMENT AND IV SOLUMEDROL AND ROCEPHIN IN ED. SUCTION IN ED ALSO. - Reevaluation 1st: Improved - Consultation Consultation Comments: DISCUSS PATIENT WITH DR. VELÁZQUEZ. HE WILL ADMIT PATIENT. - Education/Counseling Education/Counseling: Patient, Family, Education Educated On: Treatment, Diagnosis, Needs for Follow Up ROR - Labs Reviewed Laboratory Results Reviewed?: Yes Result Diagrams: 12/13/16 23:35 12/13/16 23:35 Laboratory: WBC 7.4 X10^3/uL (3.6-10.0) 12/13/16 23:35 RBC 4.13 X10^6/uL (4.7-6.0) L 12/13/16 23:35 Hgb 11.6 g/dL (13.5-18.0) L 12/13/16 23:35 Hct 34.5 % (42.0-54.0) L 12/13/16 23:35 MCV 83.5 fL (80.0-100.0) 12/13/16 23:35 MCH 28.2 pg (27.0-34.0) 12/13/16 23:35 MCHC 33.7 g/dL (33.0-35.0) 12/13/16 23:35 RDW 15.1 % (11.6-16.5) 12/13/16 23:35 Plt Count 162 X10^3/uL (150.0-450.0) 12/13/16 23:35 MPV 7.4 fL (7.4-11.0) 12/13/16 23:35 Neut % 78.1 % (42.0-75.0) H 12/13/16 23:35 Lymph % 11.9 % (21.0-51.0) L 12/13/16 23:35 [place] % 7.8 % (0.0-13.0) 12/13/16 23:35 Eos % 1.0 % (0.9-2.9) 12/13/16 23:35 Baso % 1.2 % (0.2-1.0) H 12/13/16 23:35 Neut # 5.7 x10^3/uL (2.2-4.8) H 12/13/16 23:35 Lymph # 0.9 X10^3/uL (1.3-2.9) L 12/13/16 23:35 [place] # 0.6 x10^3/uL (0.3-0.8) 12/13/16 23:35 Eos # 0.1 x10^3/uL (0.0-0.2) 12/13/16 23:35 Baso # 0.1 X10^3/uL (0.0-0.1) 12/13/16 23:35 Absolute Nucleated RBC 0.0 /100WBC 12/13/16 23:35 Sample Site Rrad 12/13/16 23:34 ABG pH 7.450 (7.35-7.45) 12/13/16 23:34 ABG pCO2 39.0 mmHg (35.0-45.0) 12/13/16 23:34 ABG pO2 162.0 mmHg (80.0-100.0) H 12/13/16 23:34 ABG HCO3 27.1 mmol/L (22-26) H 12/13/16 23:34 ABG O2 Saturation 100.0 % (90-100) 12/13/16 23:34 ABG Base Excess 3.0 mmol/L (-2.0-2.0) H 12/13/16 23:34 Jeremie Test Pos 12/13/16 23:34 A-a Gradient 502.0 mmHg 12/13/16 23:34 FiO2 100.000 12/13/16 23:34 Blood Gas Comments Carmella abg well-mtf 12/13/16 23:34 Sodium 139 mmol/L (136-145) 12/13/16 23:35 Corrected Sodium 140 mmol/L (136-145) 12/13/16 23:35 Potassium 3.5 mmol/L (3.5-5.1) 12/13/16 23:35 Chloride 105 mmol/L (98-107) 12/13/16 23:35 Carbon Dioxide 25.2 mmol/L (21-32) 12/13/16 23:35 BUN 15 mg/dL (7-18) 12/13/16 23:35 Creatinine 1.40 mg/dL (0.70-1.30) H 12/13/16 23:35 Est GFR (MDRD) Af Amer > 60 (>60) 12/13/16 23:35 Est GFR (MDRD) Non-Af 53 (>60) L 12/13/16 23:35 Glucose 121 mg/dL (65-99) H 12/13/16 23:35 Calcium 9.0 mg/dL (8.5-10.1) 12/13/16 23:35 Corrected Calcium 9.8 mg/dL (8.5-10.1) 12/13/16 23:35 Total Bilirubin 0.50 mg/dL (0.2-1.0) 12/13/16 23:35 AST 20 Units/L (15-37) 12/13/16 23:35 ALT 19 Units/L (12-78) 12/13/16 23:35 Alkaline Phosphatase 59 Units/L (46-116) 12/13/16 23:35 Total Protein 7.0 g/dL (6.4-8.2) 12/13/16 23:35 Albumin 3.0 g/dL (3.4-5.0) L 12/13/16 23:35 Globulin 4.0 g/dL (2.5-4.5) 12/13/16 23:35 Albumin/Globulin Ratio 0.8 Ratio (1.1-2.1) L 12/13/16 23:35 - XRAY XRAY Interpreted by: Radiologist XRAY Findings: REPORT DISCUSS WITH PATIENT. - EKG Rhythm: NSR, ST Block: LBBB (EKG NOTED) - Diagnosis Discharge Problem: Respiratory distress, COPD exacerbation, Cellulitis of right lower extremity Aspiration into airway Qualifiers: Encounter type: initial encounter Qualified Code(s): T17.908A - Unspecified foreign body in respiratory tract, part unspecified causing other injury, initial encounter - Discharge Plan Disposition: ADMITTED INPATIENT Condition: Stable - Follow ups/Referrals - Instructions
[2016-12-14] MEDS ORDERED: ROCEPHIN VIAL 1 GM 1 GM in NS 50 ML IV + SPIKE MINIBAG* 50 ML IV ONE (01:57)
[2016-12-14] MEDS ORDERED: ROCEPHIN 1 GM IV PREMIX 50 ML IV ONE (01:58)
--- NOTE | 2016-12-14 02:04 | RAD ---
AP Chest Indication: Shortness breath with wheezing Comparison: None available Findings: The trachea is midline. The cardiac silhouette is unremarkable. The lungs are clear without focal i nfiltrate or effusion. The bony thorax is unremarkable. IMPRESSION: 1. No acute cardiopulmonary abnormality. Reported By:
[2016-12-14] MEDS ORDERED: ROCEPHIN VIAL 1 GM 1 GM in NS 50 ML IV + SPIKE MINIBAG* 50 ML IV SCH ×2 (03:00→09:00)
[2016-12-14] MEDS: DUONEB 0.5 MG/3 MG NEB SCH ×6 (03:48→20:54)
[2016-12-14] MEDS: NS 1000 ML 1,000 ML IV SCH ×2 (03:52→21:00)
[2016-12-14] MEDS ORDERED: PREVNAR 13 IM ONE (04:13)
[2016-12-14] MEDS ORDERED: FLUVIRIN IM ONE (04:13)
[2016-12-14] MEDS ORDERED: SOLU-Medrol 125 MG VIAL ONE (04:52)
[2016-12-14] MEDS: SOLU-Medrol 40 MG VIAL IVP SCH ×3 (05:16→21:27)
[2016-12-14] MEDS ORDERED: CLEOCIN 600 MG IV PREMIX 600 MG/50 ML BAG IV SCH (06:00)
[2016-12-14 06:14] LABS: BASOPHILS % (AUTO) 0.2 % (0.2-1.0); HEMATOCRIT 32.1 % (42.0-54.0); HEMOGLOBIN 10.9 g/dL (13.5-18.0); LYMPHOCYTES # (AUTO) 0.6 X10^3/uL (1.3-2.9); LYMPHOCYTES % (AUTO) 6.8 % (21.0-51.0); MEAN CORPUSCULAR HEMOGLOBIN 28.4 pg (27.0-34.0); MEAN CORPUSCULAR HGB CONC 34.1 g/dL (33.0-35.0); MEAN CORPUSCULAR VOLUME 83.3 fL (80.0-100.0); MEAN PLATELET VOLUME 7.5 fL (7.4-11.0); MONOCYTES # (AUTO) 0.6 x10^3/uL (0.3-0.8); MONOCYTES % (AUTO) 6.7 % (0.0-13.0); NEUTROPHILS # (AUTO) 8.2 x10^3/uL (2.2-4.8); NEUTROPHILS % (AUTO) 86.3 % (42.0-75.0); PLATELET COUNT 155 X10^3/uL (150.0-450.0); RED BLOOD COUNT 3.85 X10^6/uL (4.7-6.0); RED CELL DISTRIBUTION WIDTH 15.4 % (11.6-16.5); WHITE BLOOD COUNT 9.5 X10^3/uL (3.6-10.0)
[2016-12-14 06:19] LABS: ALBUMIN 2.8 g/dL (3.4-5.0); CALCIUM 8.9 mg/dL (8.5-10.1); CARBON DIOXIDE 26.2 mmol/L (21-32); COR CA(FOR HYPOALB) 9.9 mg/dL (8.5-10.1); CREATININE 1.64 mg/dL (0.70-1.30); TOTAL PROTEIN 6.9 g/dL (6.4-8.2)
[2016-12-14] MEDS ORDERED: MAG-OX TAB PO PRN (06:36)
[2016-12-14] MEDS ORDERED: K-RIDER 10 MEQ/NS 100 ML 10 MEQ/100 ML BAG IV PRN (06:36)
[2016-12-14] MEDS ORDERED: MAGNESIUM SULFATE 1 GM/100 mL PREMIX 1 GM/100 ML BAG IV PRN (06:36)
[2016-12-14] MEDS ORDERED: K-LYTE EFFERVESCENT PO PRN (06:36)
[2016-12-14 06:57] LABS: CKMB % 0.8 % (<4); CREATINE KINASE 132 Units/L (39-308); CREATINE KINASE MB < 1.0 ng/mL (0-4.0); TROPONIN I < 0.02 ng/mL (0-1.5)
[2016-12-14] MEDS ORDERED: ROCEPHIN VIAL 1 GM 1 GM in NS 50 ML IV 50 ML IV SCH (10:00)
[2016-12-14] MEDS ORDERED: PHARMACY CONSULT - DOSE _____ XX SCH (10:00)
--- NOTE | 2016-12-14 10:11 | VAS ---
HISTORY: Right lower extremity edema Study: Right lower extremity venous Doppler evaluation Comparison: None Technique: Multiple grayscale sonographic images were obtained. Color duplex Doppler evaluation was p erformed. Findings: There is no evidence for deep venous thrombosis in the common femoral vein. There is lack of normal c ompression in the popliteal vein and lack of distal augmentation in the popliteal and distal superfic ial femoral veins. Thrombus is identified within the superficial femoral and popliteal veins. The exa mination is positive for deep venous thrombosis. IMPRESSION: Exam positive for deep venous thrombosis involving the superficial femoral and popliteal veins. Reported By:
[2016-12-14 11:35] LABS: CKMB % 1.2 % (<4); CREATINE KINASE 205 Units/L (39-308); CREATINE KINASE MB 2.4 ng/mL (0-4.0); TROPONIN I < 0.02 ng/mL (0-1.5)
[2016-12-14] MEDS: LEVAQUIN PREMIX IV 750 MG 750 MG/150 ML BAG IV SCH (11:58)
[2016-12-14] MEDS: FORTAZ or TAZICEF INJ 1 GM in NS 50 ML IV 50 ML IV SCH ×2 (14:16→21:27)
[2016-12-14] MEDS ORDERED: NORCO 7.5/325 MG TAB PO PRN (14:21)
[2016-12-14] MEDS: FLONASE NASAL SPRAY ENOSTRIL SCH ×2 (15:38→21:33)
[2016-12-14] MEDS: NAMENDA TAB 10 MG PO SCH ×2 (15:38→21:32)
[2016-12-14] MEDS ORDERED: QUETIAPINE FUMARATE PO SCH (21:00)
[2016-12-14] MEDS ORDERED: ZIPRASIDONE HCL 40 MG PO SCH (21:00)
[2016-12-14] MEDS: LASIX PO SCH (21:32)
[2016-12-14] MEDS: ZANTAC PO SCH (21:32)
[2016-12-14] MEDS: EFFEXOR XR 150 MG CAP PO SCH (21:32)
[2016-12-14] MEDS: GEODON PO SCH (21:33)
[2016-12-14] MEDS: XANAX PO PRN (21:33)
[2016-12-14] MEDS: ELIQUIS PO SCH (21:33)
[2016-12-14] MEDS: ARICEPT TAB 10 MG PO SCH (21:33)
[2016-12-14] MEDS: VALPROIC ACID PO SCH (21:34)
[2016-12-15] MEDS: DUONEB 0.5 MG/3 MG NEB SCH ×6 (00:55→20:54)
[2016-12-15] MEDS: FORTAZ or TAZICEF INJ 1 GM in NS 50 ML IV 50 ML IV SCH ×3 (06:05→21:07)
[2016-12-15] MEDS: SOLU-Medrol 40 MG VIAL IVP SCH ×3 (06:06→21:07)
[2016-12-15] MEDS: NS 1000 ML 1,000 ML IV SCH (06:06)
[2016-12-15] MEDS: VALPROIC ACID PO SCH ×3 (06:06→21:07)
[2016-12-15 06:47] LABS: BASOPHILS % (AUTO) 0.5 % (0.2-1.0); HEMATOCRIT 32.4 % (42.0-54.0); HEMOGLOBIN 10.9 g/dL (13.5-18.0); LYMPHOCYTES # (AUTO) 0.6 X10^3/uL (1.3-2.9); MEAN CORPUSCULAR HEMOGLOBIN 28.2 pg (27.0-34.0); MEAN CORPUSCULAR HGB CONC 33.8 g/dL (33.0-35.0); MEAN CORPUSCULAR VOLUME 83.5 fL (80.0-100.0); MEAN PLATELET VOLUME 8.1 fL (7.4-11.0); MONOCYTES # (AUTO) 0.6 x10^3/uL (0.3-0.8); MONOCYTES % (AUTO) 6.5 % (0.0-13.0); NEUTROPHILS # (AUTO) 8.6 x10^3/uL (2.2-4.8); PLATELET COUNT 171 X10^3/uL (150.0-450.0); RED BLOOD COUNT 3.87 X10^6/uL (4.7-6.0); RED CELL DISTRIBUTION WIDTH 15.5 % (11.6-16.5); WHITE BLOOD COUNT 9.9 X10^3/uL (3.6-10.0)
[2016-12-15 06:56] LABS: ALANINE AMINOTRANSFERASE 16 Units/L (12-78); ALBUMIN 2.6 g/dL (3.4-5.0); ALKALINE PHOSPHATASE 47 Units/L (46-116); ASPARTATE AMINO TRANSFERASE 22 Units/L (15-37); BLOOD UREA NITROGEN 28 mg/dL (7-18); CALCIUM 9.6 mg/dL (8.5-10.1); CARBON DIOXIDE 27.5 mmol/L (21-32); CHLORIDE 106 mmol/L (98-107); COR CA(FOR HYPOALB) 10.7 mg/dL (8.5-10.1); COR NA(FOR HYPERGLY) 141 mmol/L (136-145); CREATININE 1.28 mg/dL (0.70-1.30); SODIUM 140 mmol/L (136-145); TOTAL PROTEIN 6.6 g/dL (6.4-8.2); eGFR BLACK RACES > 60 (>60); eGFR NON BLACK RACES 59 (>60)
--- NOTE | 2016-12-15 08:32 | RAD ---
HISTORY: Shortness of breath, wheezing, flu-like symptoms Study: Single-view chest, done portably Comparison: 12/13/2016. Findings: Cardiac monitoring electrodes are noted on the chest. The trachea is midline. Heart size is normal. T here is aortic uncoiling. Lungs and pleural spaces are clear. Osseous structures are intact. IMPRESSION: No acute cardiopulmonary disease. Reported By:
[2016-12-15] MEDS: LASIX PO SCH ×2 (09:17→21:20)
[2016-12-15] MEDS: GEODON PO SCH ×2 (09:17→21:20)
[2016-12-15] MEDS: FLONASE NASAL SPRAY ENOSTRIL SCH ×2 (09:17→21:20)
[2016-12-15] MEDS: ELIQUIS PO SCH ×2 (09:17→21:20)
[2016-12-15] MEDS: LEVAQUIN PREMIX IV 750 MG 750 MG/150 ML BAG IV SCH (09:18)
[2016-12-15] MEDS: ZANTAC PO SCH ×2 (09:18→21:06)
[2016-12-15] MEDS: NAMENDA TAB 10 MG PO SCH ×2 (09:18→21:19)
[2016-12-15] MEDS: SINGULAIR TAB 10 MG PO SCH (09:18)
[2016-12-15 15:52] LABS: ABG ALLEN TEST POS; ABG BASE EXCESS 2.2 mmol/L (-2.0-2.0); ABG HCO3 26.5 mmol/L (22-26); FRACTIONATED INSPIRED OXYGEN 21
[2016-12-15 16:21] VITALS: BMI 30.9
[2016-12-15] MEDS: ARICEPT TAB 10 MG PO SCH (21:20)
[2016-12-15] MEDS: EFFEXOR XR 150 MG CAP PO SCH (21:20)
[2016-12-15] MEDS: XANAX PO PRN (21:21)
--- NOTE | 2016-12-15 21:26 | DR.H&P ---
H&P - History & Physical for Day of: H&P Date: 12/15/16 - Chief Complaint Chief Complaint: short of breath - Allergies Allergies/Adverse Reactions: Allergies Allergy/AdvReac Type Severity Reaction Status Date / Time No Known Drug Allergies Allergy Verified 09/09/16 12:13 - History of Present Illness History of Present Illness: is a 71 year old patient of ours who presented to the emergency room with respiratory distress, tachycardia and chest pain. He reports that symptoms started suddenly yesterday. Patient also reports that he is having flu like symptoms, with associated shortness of breath and wheezing. Patient reports that symptoms have increasingly gotten worse today. Patient has a history of CVA with residual right sided weakness, dysphagia, and dysarthria. Family expresses concerns that patient may have aspirated. Associated symptoms include weakness, fatigue, nasal discharge, nasal congestion, throat pain, productive cough, short of breath, wheezing, hemoptysis, swelling and redness to the right lower extremity. On examination, wheezing and rhonchi are noted in bilateral lung desai. Diminished lung sounds are also noted. Abdomen is round soft, and non tender with normal bowel sounds noted in all quadrants. Examination also revealed that the RLE was swollen and noted with redness. Patient does have a history of DVTs. He is currently taking Eliquis 5mg PO BID. Patient was placed on nasal cannula with oxygen at 2l/min. On arrival to the ER, vital signs were 98.6, 113, 21, 84%NC 2LPM, 116/56. Labs and chest xray were obtained. Abnormal lab values include the following: RBC 4.13, Hgb 11.6, Hcty 34.5, Neut% 78.1, Lymph% 11.9, Baso% 1.2, Neut# 5.7, Lymph # 0.9, Creatinine 1.40, GFR(non) 53, Glucose 121, Albumin 3.0, A/G Ratio 0.8. ABG reports: PO2 162.0, HCO3 27.1, Base Excess 3.0. Blood cultures were drawn. Results are pending. EKG reports: Sinus tachycardia. Heart [id number]. Chest xray : No acute cardiopulmonary abnormality. We admitted patient for further treatment and evaluation. He was started on normal saline at kvo and IV antibiotics. We planned to follow up with am labs and a venous doppler to assess for DVT. We will continue to monitor patient. - Past Medical History Past Medical History: COPD, CVA, GERD, Hypertension Additional Medical History: Prostate Cancer, Chronic Cholelithiasis - Past Surgical History Surgical History: Cholecystectomy Additional Surgical History: Prostatectomy, Hiatal Hernia Repair, Left Knee - Family History Family Medical History: Cancer - Social History Does patient currently use any type of tobacco product: No Have you used tobacco products in the last 12 months: No Type of Tobacco Use: None Alcohol Use: None Drug Use: None - Medications Home Medications: Alprazolam [Xanax] 0.25 mg PO BID PRN 12/14/16 [History Confirmed 12/14/16] Fluticasone Nasal [place] [FLONASE NASAL SPRAY *] 1 spray ENOSTRIL BID 12/14/16 [ History Confirmed 12/14/16] Furosemide [Lasix] 20 mg PO BID 12/14/16 [History Confirmed 12/14/16] Tizanidine HCl [Zanaflex 4 mg] 4 mg PO BID 12/14/16 [History Confirmed 12/14/16] - Review of Systems Constitutional: Fever, Weakness, Malaise Eyes: No Symptoms Reported ENT: Nose Discharge, Nose Congestion, Throat Pain. denies: Ear Pain, Ear Discharge Respiratory: Cough, Shortness of Breath, Hemoptysis, Sputum, Wheezing Cardiovascular: Chest Pain, Edema (RLE) Gastrointestinal: No Symptoms Reported Genitourinary: No Symptoms Reported Musculoskeletal: No Symptoms Reported Skin: No Symptoms Reported Neurological: Weakness - Physical Exam Vital Signs: Temperature 98.0 F Pulse Rate [Right Brachial] 110 Pulse Rate 103 Respiratory Rate 20 Blood Pressure [Left Arm] 117/72 Blood Pressure [Right Arm] 115/67 Blood Pressure 152/82 O2 Sat by Pulse Oximetry 96 Oriented: Normal Eyes: Normal. negative: Photophobia Ear: Normal. negative: Abrasion, Laceration Nose: Discharge Throat: Normal Respiratory: Diminished Throughout, Rhonchi Throughout, Wheezes Throughout Cardiovascular: Normal, Edema (RLE) : Normal Auscultation: Bowel Sounds: Normal Palpation: Normal Tenderness: Normal Skin: Red (RLE), Tender Musculoskeletal: Right, Leg, Swelling, Tender Psychiatric: Normal Mood Description: Calm Affect: Normal Speech Pattern: Clear - Assessment/Plan (1) Respiratory distress Status: Acute Plan: DUONEBS, SUPPLEMENTAL OXYGEN, SOLU-MEDROLMG IV QH, CONTINUE TO MONITOR (2) Bronchopneumonia Status: Acute Plan: CLINDAMYCIN 600MG IV Q8H, ROCEPHIN 1GM IV DAILY, DUONEBS, SUPPLEMENTAL OXYGEN, SOLU-MEDROL 40MG IV QH, CONTINUE TO MONITOR (3) COPD exacerbation Status: Acute Plan: DUONEBS, SUPPLEMENTAL OXYGEN, SOLU-MEDROLMG IV QH, CONTINUE TO MONITOR (4) Aspiration into airway Qualifiers: Encounter type: initial encounter Qualified Code(s): T17.908A - Unspecified foreign body in respiratory tract, part unspecified causing other injury, initial encounter Status: Acute Plan: CONTINUE TO MONITOR CHEST XRAY (5) Cellulitis of right lower extremity Status: Acute Plan: OBTAIN VENOUS DOPPLER, CONTINUE TO MONITOR
[2016-12-16] MEDS: DUONEB 0.5 MG/3 MG NEB SCH ×4 (00:21→11:59)
[2016-12-16] MEDS: VALPROIC ACID PO SCH (05:30)
[2016-12-16] MEDS: SOLU-Medrol 40 MG VIAL IVP SCH (05:30)
[2016-12-16] MEDS: NS 1000 ML 1,000 ML IV SCH ×2 (05:30→10:33)
[2016-12-16] MEDS: FORTAZ or TAZICEF INJ 1 GM in NS 50 ML IV 50 ML IV SCH (05:31)
[2016-12-16 06:15] LABS: BASOPHILS % (AUTO) 0.1 % (0.2-1.0); HEMATOCRIT 31.2 % (42.0-54.0); HEMOGLOBIN 10.6 g/dL (13.5-18.0); LYMPHOCYTES # (AUTO) 0.6 X10^3/uL (1.3-2.9); LYMPHOCYTES % (AUTO) 6.3 % (21.0-51.0); MEAN CORPUSCULAR HEMOGLOBIN 28.4 pg (27.0-34.0); MEAN CORPUSCULAR VOLUME 83.6 fL (80.0-100.0); MEAN PLATELET VOLUME 7.3 fL (7.4-11.0); MONOCYTES # (AUTO) 0.5 x10^3/uL (0.3-0.8); MONOCYTES % (AUTO) 5.1 % (0.0-13.0); NEUTROPHILS # (AUTO) 8.1 x10^3/uL (2.2-4.8); NEUTROPHILS % (AUTO) 88.5 % (42.0-75.0); PLATELET COUNT 177 X10^3/uL (150.0-450.0); RED BLOOD COUNT 3.73 X10^6/uL (4.7-6.0); RED CELL DISTRIBUTION WIDTH 15.9 % (11.6-16.5); WHITE BLOOD COUNT 9.1 X10^3/uL (3.6-10.0)
[2016-12-16 06:53] LABS: ALANINE AMINOTRANSFERASE 16 Units/L (12-78); ALBUMIN 2.6 g/dL (3.4-5.0); ALKALINE PHOSPHATASE 42 Units/L (46-116); ASPARTATE AMINO TRANSFERASE 15 Units/L (15-37); BLOOD UREA NITROGEN 30 mg/dL (7-18); CALCIUM 9.6 mg/dL (8.5-10.1); CARBON DIOXIDE 28.8 mmol/L (21-32); CHLORIDE 108 mmol/L (98-107); COR CA(FOR HYPOALB) 10.7 mg/dL (8.5-10.1); COR NA(FOR HYPERGLY) 141 mmol/L (136-145); CREATININE 1.31 mg/dL (0.70-1.30); SODIUM 141 mmol/L (136-145); TOTAL PROTEIN 6.5 g/dL (6.4-8.2); eGFR BLACK RACES > 60 (>60); eGFR NON BLACK RACES 57 (>60)
--- NOTE | 2016-12-16 08:26 | RAD ---
HISTORY: Shortness of breath, wheezing, flu-like symptoms Study: Single-view chest, done portably Comparison: 12/15/2016 Findings: Cardiac monitoring electrodes are noted on the chest. The trachea is midline. The heart size is juan luis l. There is aortic uncoiling. Moderate hiatal hernia is present. Lungs and pleural spaces are clear. Osseous structures are intact. IMPRESSION: No acute cardiopulmonary disease. Reported By:
[2016-12-16] MEDS: SINGULAIR TAB 10 MG PO SCH (09:34)
[2016-12-16] MEDS: ELIQUIS PO SCH (09:34)
[2016-12-16] MEDS: ZANTAC PO SCH (09:34)
[2016-12-16] MEDS: LEVAQUIN PREMIX IV 750 MG 750 MG/150 ML BAG IV SCH (09:34)
[2016-12-16] MEDS: LASIX PO SCH (09:35)
[2016-12-16] MEDS: NAMENDA TAB 10 MG PO SCH (09:36)
[2016-12-16] MEDS: FLONASE NASAL SPRAY ENOSTRIL SCH (09:36)
[2016-12-16] MEDS: GEODON PO SCH (10:32)
[2016-12-16 14:02] VITALS: BP 142/65
== END 2016-12-16 13:30 | disposition home health service (06) | DRG 204 ==
LOC: ER 23:49 → ICU 12-14 02:56
PROVIDERS: ADMIT Internal Medicine; ATTEND Internal Medicine
PROC: 3E0234Z Introduction of Serum, Toxoid and Vaccine into Muscle, Percutaneous Approach (ICD-10-PCS; principal; 2016-12-14)
PROC: 3E0234Z Introduction of Serum, Toxoid and Vaccine into Muscle, Percutaneous Approach (ICD-10-PCS; 2016-12-14)
DX: R06.03 Acute respiratory distress (principal); J44.1 Chronic obstructive pulmonary disease with (acute) exacerbation; R00.1 Bradycardia, unspecified; R07.89 Other chest pain; K21.9 Gastro-esophageal reflux disease without esophagitis; I10 Essential (primary) hypertension; T17.908A Unspecified foreign body in respiratory tract, part unspecified causing other injury, initial encounter; L03.115 Cellulitis of right lower limb; R94.31 Abnormal electrocardiogram [ECG] [EKG]; J18.0 Bronchopneumonia, unspecified organism; I82.431 Acute embolism and thrombosis of right popliteal vein; I82.411 Acute embolism and thrombosis of right femoral vein; R26.89 Other abnormalities of gait and mobility; I69.351 Hemiplegia and hemiparesis following cerebral infarction affecting right dominant side; I69.391 Dysphagia following cerebral infarction; I69.322 Dysarthria following cerebral infarction; Z23 Encounter for immunization
CPT/HCPCS: 36415; 36600; 71010; 80053; 82550; 82553; 82803; 83735; 84484; 85025; 87040; 90686; 93005; 93971; 94640; 96365; 96374; 96375; 97535; 99284; A4222; 90670; J0077; J0696; J0713; J1940; J1956; J2060; J2920; J2930; J7620

== ENCOUNTER 2016-12-19 14:45 | Observation (INO) | payer OTHER ==
[2016-12-19] MEDS ORDERED: TUSSIONEX PENNKINETIC SUSP PO PRN (15:47)
[2016-12-19] MEDS ORDERED: PHARMACY CONSULT - DOSE _____ XX SCH (16:00)
[2016-12-19] MEDS ORDERED: DUONEB 0.5 MG/3 MG ONE (16:05)
[2016-12-19] MEDS: DUONEB 0.5 MG/3 MG NEB SCH ×3 (16:10→20:33)
[2016-12-19] MEDS ORDERED: SALINE 3% 15 ML NEB TX ONE (16:41)
[2016-12-19] MEDS ORDERED: SALINE 3% 15 ML NEB TX NEB ONE (16:43)
[2016-12-19] MEDS ORDERED: SALINE 3% 15 ML NEB TX NEB NR (17:00)
[2016-12-19 17:05] LABS: BASOPHILS % (AUTO) 0.4 % (0.2-1.0); EOSINOPHILS # (AUTO) 0.3 x10^3/uL (0.0-0.2); EOSINOPHILS % (AUTO) 3.5 % (0.9-2.9); HEMATOCRIT 34.6 % (42.0-54.0); HEMOGLOBIN 11.6 g/dL (13.5-18.0); LYMPHOCYTES # (AUTO) 2.6 X10^3/uL (1.3-2.9); LYMPHOCYTES % (AUTO) 33.6 % (21.0-51.0); MEAN CORPUSCULAR HEMOGLOBIN 27.6 pg (27.0-34.0); MEAN CORPUSCULAR HGB CONC 33.5 g/dL (33.0-35.0); MEAN CORPUSCULAR VOLUME 82.4 fL (80.0-100.0); MEAN PLATELET VOLUME 7.3 fL (7.4-11.0); MONOCYTES # (AUTO) 0.8 x10^3/uL (0.3-0.8); MONOCYTES % (AUTO) 9.8 % (0.0-13.0); NEUTROPHILS % (AUTO) 52.7 % (42.0-75.0); PLATELET COUNT 206 X10^3/uL (150.0-450.0); RED CELL DISTRIBUTION WIDTH 15.3 % (11.6-16.5); WHITE BLOOD COUNT 7.6 X10^3/uL (3.6-10.0)
[2016-12-19] MEDS ORDERED: NS 1/2 1000 ML IV 1,000 ML IV ONE (17:08)
[2016-12-19] MEDS: NS 1/2 1000 ML IV 1,000 ML IV SCH (17:15)
[2016-12-19] MEDS: LEVAQUIN PREMIX IV 750 MG 750 MG/150 ML BAG IV SCH (17:15)
[2016-12-19] MEDS: ROBITUSSIN DM PO SCH ×2 (17:15→21:08)
--- NOTE | 2016-12-19 17:29 | RAD ---
Chest, one-view Indication: Pneumonia Comparison: 12/16/2016 Findings: Heart size is normal. No focal consolidation, effusion or pneumothorax is identified. Moder ate-sized hiatal hernia is present. Osseous thorax is unremarkable. Impression: No acute chest process or significant change since prior. Reported By:
[2016-12-19 17:38] LABS: PLATELET MORPHOLOGY COMMENT NORMAL (NORMAL)
[2016-12-19 18:41] LABS: ALANINE AMINOTRANSFERASE 28 Units/L (12-78); ALBUMIN 2.8 g/dL (3.4-5.0); ALKALINE PHOSPHATASE 49 Units/L (46-116); ASPARTATE AMINO TRANSFERASE 27 Units/L (15-37); BLOOD UREA NITROGEN 26 mg/dL (7-18); CALCIUM 9.5 mg/dL (8.5-10.1); CARBON DIOXIDE 26.4 mmol/L (21-32); CHLORIDE 102 mmol/L (98-107); COR CA(FOR HYPOALB) 10.5 mg/dL (8.5-10.1); CREATININE 1.11 mg/dL (0.70-1.30); SODIUM 137 mmol/L (136-145); TOTAL PROTEIN 6.6 g/dL (6.4-8.2); eGFR BLACK RACES > 60 (>60); eGFR NON BLACK RACES > 60 (>60)
[2016-12-19] MEDS: FORTAZ or TAZICEF INJ 1 GM in NS 50 ML IV 50 ML IV SCH (21:08)
[2016-12-20] MEDS: DUONEB 0.5 MG/3 MG NEB SCH ×6 (00:05→21:11)
[2016-12-20 05:22] LABS: ALANINE AMINOTRANSFERASE 24 Units/L (12-78); ALBUMIN 2.6 g/dL (3.4-5.0); ALKALINE PHOSPHATASE 47 Units/L (46-116); ASPARTATE AMINO TRANSFERASE 21 Units/L (15-37); BLOOD UREA NITROGEN 20 mg/dL (7-18); CALCIUM 8.8 mg/dL (8.5-10.1); CARBON DIOXIDE 28.3 mmol/L (21-32); CHLORIDE 102 mmol/L (98-107); COR CA(FOR HYPOALB) 9.9 mg/dL (8.5-10.1); SODIUM 135 mmol/L (136-145); TOTAL PROTEIN 6.1 g/dL (6.4-8.2); eGFR BLACK RACES > 60 (>60); eGFR NON BLACK RACES > 60 (>60)
[2016-12-20] MEDS: FORTAZ or TAZICEF INJ 1 GM in NS 50 ML IV 50 ML IV SCH ×3 (05:31→22:09)
[2016-12-20] MEDS: NS 1/2 1000 ML IV 1,000 ML IV SCH ×2 (05:49→21:04)
[2016-12-20] MEDS ORDERED: NS 1/2 1000 ML IV 0 ML IV ONE (05:54)
[2016-12-20 06:22] LABS: BASOPHILS % (AUTO) 0.2 % (0.2-1.0); EOSINOPHILS # (AUTO) 0.2 x10^3/uL (0.0-0.2); HEMATOCRIT 32.5 % (42.0-54.0); HEMOGLOBIN 11.2 g/dL (13.5-18.0); LYMPHOCYTES # (AUTO) 2.2 X10^3/uL (1.3-2.9); LYMPHOCYTES % (AUTO) 29.6 % (21.0-51.0); MEAN CORPUSCULAR HEMOGLOBIN 28.2 pg (27.0-34.0); MEAN CORPUSCULAR HGB CONC 34.4 g/dL (33.0-35.0); MEAN CORPUSCULAR VOLUME 81.9 fL (80.0-100.0); MEAN PLATELET VOLUME 7.5 fL (7.4-11.0); MONOCYTES # (AUTO) 0.8 x10^3/uL (0.3-0.8); MONOCYTES % (AUTO) 10.3 % (0.0-13.0); NEUTROPHILS # (AUTO) 4.2 x10^3/uL (2.2-4.8); NEUTROPHILS % (AUTO) 56.9 % (42.0-75.0); PLATELET COUNT 201 X10^3/uL (150.0-450.0); RED BLOOD COUNT 3.97 X10^6/uL (4.7-6.0); RED CELL DISTRIBUTION WIDTH 15.7 % (11.6-16.5); WHITE BLOOD COUNT 7.4 X10^3/uL (3.6-10.0)
[2016-12-20] MEDS ORDERED: NS 1/2 1000 ML IV 1,000 ML IV ONE ×2 (06:35→20:13)
[2016-12-20 07:22] LABS: BAND NEUTROPHILS % 6 % (0-10); PLATELET MORPHOLOGY COMMENT NORMAL (NORMAL)
--- NOTE | 2016-12-20 07:27 | RAD ---
HISTORY: Pneumonia Study: Chest AP portable Comparison: 12/19/2016 Findings: The trachea is midline. The cardiac silhouette is unremarkable. The lungs are clear without focal i nfiltrate or effusion. The bony thorax is unremarkable. IMPRESSION: 1. No acute cardiopulmonary disease. Reported By:
[2016-12-20] MEDS: ROBITUSSIN DM PO SCH ×4 (08:30→20:15)
[2016-12-20] MEDS: NORCO 7.5/325 MG TAB PO PRN (12:16)
[2016-12-20 13:48] VITALS: BMI 31.6
[2016-12-20] MEDS ORDERED: MEMANTINE HCL 5 MG PO SCH (16:30)
--- NOTE | 2016-12-20 16:42 | DR.UPDATE ---
H&P Update History and Physical Update: WAS SEEN IN THE OFFICE ON 12/19/16. A H&P WAS COMPLETED PRIOR TO ADMISSION. PATIENT HAS BEEN SEEN AND EXAMINED WITH NO CHANGES NOTED TO H&P. Changes noted: NO Yes with the following:
[2016-12-20] MEDS: VALPROIC ACID 500 MG PO SCH ×2 (16:47→22:09)
[2016-12-20] MEDS: SINGULAIR TAB 10 MG PO SCH (17:17)
[2016-12-20] MEDS: EFFEXOR XR 150 MG CAP PO SCH (17:17)
[2016-12-20] MEDS ORDERED: ARICEPT TAB 10 MG PO SCH (21:00)
[2016-12-20] MEDS ORDERED: NAMENDA TAB 10 MG PO SCH (21:00)
--- NOTE | 2016-12-20 21:35 | PCM.PROG ---
Progress Note - Progress Note for Day of Date: 12/20/16 - Subjective Subjective: WAS ADMITTED FOR BRONCHOPNEUMONIA. TODAY, HE IS ALERT AND ORIENTED, LYING IN BED ON MORNING ROUNDS. HE CONTINUES WITH COMPLAINTS OF SHORTNESS OF BREATH, NON-PRODUCTIVE COUGH, WEAKNESS, AND TENDERNESS TO THE RIGHT LEG. PATIENT WAS POSITIVE FOR DVT TO RIGHT LEG ON LAST ADMISSION. ON EXAMINATION, LUNGS ARE NOTED WITH WHEEZING BILATERLLY TO AUSCULTATION. LUNG SOUNDS ARE DIMINISHED THROUGHOUT. ABDOMEN IS ROUND, SOFT, AND NON-TENDER WITH NORMAL BOWEL SOUNDS NOTED IN ALL QUADRANTS. HIS VITAL SIGNS THIS MORNING ARE 98.1-88-20-96%-140/71. ABNORMAL LAB VALUES TODAY INCLUDE THE FOLLOWING: RBC 3.97 , HGB 11.2, HCT 32.5, SODIUM 135, BUN 20, TOTAL PROTEIN 6.1, ALBUMIN 2.6. SPUTUM CULTURES AND BLOOD CULTURES ARE PENDING. A CHEST XRAY WAS OBTAINED THIS MORNING AND REPORTS NO ACUTE CARDIOPULMONARY DISEASE. PATIENT'S WAS ALSO ADMITTED TO HOSPITAL YESTERDAY. SHE REPORTS THAT SHE DOESN'T FEEL LIKE SHE WILL BE ABLE TO CARE FOR PATIENT AT HOME AT THE CURRENT TIME DUE TO PATIENT'S DEMAND FOR MODERATE ASSISTANCE DUE TO HX OF STROKE. WE DISCUSSED PLACEMENT AT DIRECTOR DESIGN CARE WITH PATIENT AND . THEY ARE IN AGREEMENT WITH PLAN. WE WILL FURTHER DISCUSS THIS WITH CASE MANAGEMENT. OTHERWISE, WE WILL CONTINUE WITH CURRENT PLAN OF CARE TODAY. WE PLAN TO FOLLOW UP WITH AM LABS AND CHEST XRAY AND CONTINUE TO MONITOR PATIENT. - Past Medical Family Social History Past Med/Fam/Surg Hx: No changes since H&P Allergies: Allergies No Known Drug Allergies Allergy (Verified 09/09/16 12:13) - Review of Systems ROS: No change since H&P - Vital Signs and I&O's Vital Signs: Temperature 98.7 F Pulse Rate [Left Radial] 99 Pulse Rate 79 Respiratory Rate 18 Blood Pressure [Left Arm] 123/67 Blood Pressure [Right Arm] 142/65 Blood Pressure 142/65 O2 Sat by Pulse Oximetry 96 Intake and Output: Intake & Output 12/18/16 12/19/16 12/20/16 12/21/16 11:59 11:59 11:59 11:59 Intake Total 240 580 Output Total 600 250 Balance -360 330 - Physical Exam Oriented: Normal Eyes: Normal. negative: Diplopia, Photophobia Ear: Normal. negative: Abrasion, Laceration Nose: Normal Throat: Normal Respiratory: Right, Left, Generalized, Diminished, Wheezes Cardiovascular: Normal. negative: Murmur, Edema : Normal. negative: Dysuria, Hematuria, Testicular Pain Auscultation: Bowel Sounds: Normal Palpation: Normal Tenderness: Normal. negative: Rebound, Guarding, Rigidity Skin: Normal Musculoskeletal: Instability Psychiatric: Normal Mood Description: Calm Affect: Normal Speech Pattern: Unclear - Laboratory and Diagnostics Result Diagrams: 12/20/16 03:30 12/20/16 03:30 Labs: 12/19/16 16:53 Sputum - Expectorated Sputum Sputum Culture - Preliminary 12/19/16 16:53 Sputum - Expectorated Sputum - Final Laboratory WBC 7.4 X10^3/uL (3.6-10.0) 12/20/16 03:30 RBC 3.97 X10^6/uL (4.7-6.0) L 12/20/16 03:30 Hgb 11.2 g/dL (13.5-18.0) L 12/20/16 03:30 Hct 32.5 % (42.0-54.0) L 12/20/16 03:30 MCV 81.9 fL (80.0-100.0) 12/20/16 03:30 MCH 28.2 pg (27.0-34.0) 12/20/16 03:30 MCHC 34.4 g/dL (33.0-35.0) 12/20/16 03:30 RDW 15.7 % (11.6-16.5) 12/20/16 03:30 Plt Count 201 X10^3/uL (150.0-450.0) 12/20/16 03:30 Plt Count Comment Adequate (ADEQUATE) 12/20/16 03:30 MPV 7.5 fL (7.4-11.0) 12/20/16 03:30 Neut % 56.9 % (42.0-75.0) 12/20/16 03:30 Lymph % 29.6 % (21.0-51.0) 12/20/16 03:30 [place] % 10.3 % (0.0-13.0) 12/20/16 03:30 Eos % 3.0 % (0.9-2.9) H 12/20/16 03:30 Baso % 0.2 % (0.2-1.0) 12/20/16 03:30 Neut # 4.2 x10^3/uL (2.2-4.8) 12/20/16 03:30 Lymph # 2.2 X10^3/uL (1.3-2.9) 12/20/16 03:30 [place] # 0.8 x10^3/uL (0.3-0.8) 12/20/16 03:30 Eos # 0.2 x10^3/uL (0.0-0.2) 12/20/16 03:30 Baso # 0.0 X10^3/uL (0.0-0.1) 12/20/16 03:30 Absolute Nucleated RBC 0.4 /100WBC 12/20/16 03:30 Total Counted 100 12/20/16 03:30 Neutrophils % (Manual) 55 % (39-76) 12/20/16 03:30 Band Neutrophils % 6 % (0-10) 12/20/16 03:30 Lymphocytes % (Manual) 32 % (13-43) 12/20/16 03:30 Monocytes % (Manual) 2 % (4-9) L 12/20/16 03:30 Eosinophils % (Manual) 6 % (0-6) 12/19/16 16:28 Plt Morphology Comment Normal (NORMAL) 12/20/16 03:30 RBC Morphology Normal (NORMAL) 12/20/16 03:30 Sodium 135 mmol/L (136-145) L 12/20/16 03:30 Corrected Sodium TNP 12/20/16 03:30 Potassium 4.3 mmol/L (3.5-5.1) 12/20/16 03:30 Chloride 102 mmol/L (98-107) 12/20/16 03:30 Carbon Dioxide 28.3 mmol/L (21-32) 12/20/16 03:30 BUN 20 mg/dL (7-18) H 12/20/16 03:30 Creatinine 1.20 mg/dL (0.70-1.30) 12/20/16 03:30 Est GFR (MDRD) Af Amer > 60 (>60) 12/20/16 03:30 Est GFR (MDRD) Non-Af > 60 (>60) 12/20/16 03:30 Glucose 77 mg/dL (65-99) 12/20/16 03:30 Calcium 8.8 mg/dL (8.5-10.1) 12/20/16 03:30 Corrected Calcium 9.9 mg/dL (8.5-10.1) 12/20/16 03:30 Total Bilirubin 0.30 mg/dL (0.2-1.0) 12/20/16 03:30 AST 21 Units/L (15-37) 12/20/16 03:30 ALT 24 Units/L (12-78) 12/20/16 03:30 Alkaline Phosphatase 47 Units/L (46-116) 12/20/16 03:30 Total Protein 6.1 g/dL (6.4-8.2) L 12/20/16 03:30 Albumin 2.6 g/dL (3.4-5.0) L 12/20/16 03:30 Globulin 3.5 g/dL (2.5-4.5) 12/20/16 03:30 Albumin/Globulin Ratio 0.7 Ratio (1.1-2.1) L 12/20/16 03:30 - Plan (1) Bronchopneumonia Status: Acute Plan: CONTINUE FORTAZ IV AND LEVAQUIN IV, CONTINUE DUONEBS, CONTINUE TUSSIONEX AND ROBITUSSIN, CONTINUE SUPPLEMENTAL OXYGEN, CONTINUE WITH CURRENT PLAN OF CARE.
[2016-12-20] MEDS: ZANTAC PO SCH (22:04)
[2016-12-20] MEDS: ELIQUIS PO SCH (22:05)
[2016-12-20] MEDS: LOPRESSOR TAB 25 MG PO SCH (22:05)
[2016-12-20] MEDS: GEODON PO SCH (22:06)
[2016-12-20] MEDS: PATANOL 0.1% EYE DROPS EACHEYE SCH (22:09)
[2016-12-20] MEDS: FLONASE NASAL SPRAY ENOSTRIL SCH (22:09)
[2016-12-21] MEDS: DUONEB 0.5 MG/3 MG NEB SCH ×4 (00:53→12:30)
[2016-12-21] MEDS: FORTAZ or TAZICEF INJ 1 GM in NS 50 ML IV 50 ML IV SCH (05:17)
[2016-12-21] MEDS: VALPROIC ACID 500 MG PO SCH (05:17)
[2016-12-21 05:49] LABS: BASOPHILS % (AUTO) 0.3 % (0.2-1.0); EOSINOPHILS # (AUTO) 0.3 x10^3/uL (0.0-0.2); EOSINOPHILS % (AUTO) 3.8 % (0.9-2.9); HEMATOCRIT 33.2 % (42.0-54.0); HEMOGLOBIN 11.2 g/dL (13.5-18.0); LYMPHOCYTES # (AUTO) 2.1 X10^3/uL (1.3-2.9); LYMPHOCYTES % (AUTO) 28.2 % (21.0-51.0); MEAN CORPUSCULAR HGB CONC 33.8 g/dL (33.0-35.0); MEAN PLATELET VOLUME 7.4 fL (7.4-11.0); MONOCYTES # (AUTO) 0.9 x10^3/uL (0.3-0.8); MONOCYTES % (AUTO) 12.3 % (0.0-13.0); NEUTROPHILS % (AUTO) 55.4 % (42.0-75.0); PLATELET COUNT 179 X10^3/uL (150.0-450.0); RED CELL DISTRIBUTION WIDTH 15.2 % (11.6-16.5); WHITE BLOOD COUNT 7.3 X10^3/uL (3.6-10.0)
[2016-12-21 06:24] LABS: ALANINE AMINOTRANSFERASE 24 Units/L (12-78); ALBUMIN 2.5 g/dL (3.4-5.0); ALKALINE PHOSPHATASE 47 Units/L (46-116); ASPARTATE AMINO TRANSFERASE 21 Units/L (15-37); BLOOD UREA NITROGEN 17 mg/dL (7-18); CALCIUM 8.9 mg/dL (8.5-10.1); CARBON DIOXIDE 26.5 mmol/L (21-32); CHLORIDE 105 mmol/L (98-107); COR CA(FOR HYPOALB) 10.1 mg/dL (8.5-10.1); CREATININE 1.18 mg/dL (0.70-1.30); SODIUM 139 mmol/L (136-145); TOTAL PROTEIN 5.8 g/dL (6.4-8.2); eGFR BLACK RACES > 60 (>60); eGFR NON BLACK RACES > 60 (>60)
[2016-12-21] MEDS: PATANOL 0.1% EYE DROPS EACHEYE SCH ×2 (06:35→10:04)
--- NOTE | 2016-12-21 06:40 | RAD ---
HISTORY: Follow-up pneumonia Study: Chest AP portable Comparison: 12/20/2016 Findings: The trachea is midline. The cardiac silhouette is unremarkable. The lungs are clear without focal i nfiltrate or effusion. The bony thorax is unremarkable. IMPRESSION: 1. No acute cardiopulmonary disease. Reported By:
[2016-12-21 06:46] LABS: BAND NEUTROPHILS % 2 % (0-10)
[2016-12-21 06:47] LABS: PLATELET MORPHOLOGY COMMENT NORMAL (NORMAL)
[2016-12-21] MEDS: GEODON PO SCH (08:00)
[2016-12-21] MEDS: EFFEXOR XR 150 MG CAP PO SCH ×2 (08:00→09:03)
[2016-12-21] MEDS: LOPRESSOR TAB 25 MG PO SCH (08:00)
[2016-12-21] MEDS: NORCO 7.5/325 MG TAB PO PRN (08:00)
[2016-12-21] MEDS: ROBITUSSIN DM PO SCH ×2 (08:00→12:21)
[2016-12-21] MEDS: ZANTAC PO SCH (08:00)
[2016-12-21] MEDS: LEVAQUIN PREMIX IV 750 MG 750 MG/150 ML BAG IV SCH (08:00)
[2016-12-21] MEDS: SINGULAIR TAB 10 MG PO SCH (08:00)
[2016-12-21] MEDS ORDERED: NS 1/2 1000 ML IV 1,000 ML IV ONE (08:07)
[2016-12-21] MEDS ORDERED: NAMENDA TAB 10 MG PO SCH (09:00)
[2016-12-21] MEDS: FLONASE NASAL SPRAY ENOSTRIL SCH (09:04)
[2016-12-21] MEDS: ELIQUIS PO SCH (09:04)
[2016-12-21] MEDS: NS 1/2 1000 ML IV 1,000 ML IV SCH (09:14)
[2016-12-21 12:21] VITALS: BP 96/64
== END 2016-12-21 14:00 | disposition home health service (06) ==
LOC: MED/SURG 14:45
PROVIDERS: ADMIT Internal Medicine; ATTEND Internal Medicine
DX: J18.0 Bronchopneumonia, unspecified organism (principal); I82.491 Acute embolism and thrombosis of other specified deep vein of right lower extremity; I10 Essential (primary) hypertension; I69.951 Hemiplegia and hemiparesis following unspecified cerebrovascular disease affecting right dominant side; J44.9 Chronic obstructive pulmonary disease, unspecified; R06.02 Shortness of breath; R26.89 Other abnormalities of gait and mobility; R13.11 Dysphagia, oral phase; D64.89 Other specified anemias; Z85.46 Personal history of malignant neoplasm of prostate; Z86.73 Personal history of transient ischemic attack (TIA), and cerebral infarction without residual deficits
CPT/HCPCS: 36415; 71010; 80053; 85025; 87040; 87070; 87205; 94640; 94760; 97535; A4222; G0378; J0713; J1956; J7620

== ENCOUNTER → 2017-01-08 | Outpatient (CLI) | payer OTHER ==
[2016-12-21 12:21] VITALS: BP 96/64
[~2017-01-08] MED LIST changes: +CIPRO TAB 500 MG PO ONE; -DUONEB 0.5 MG/3 MG ONE
--- NOTE | 2017-01-08 11:02 | RAD ---
HISTORY: Possible aspiration. Study: PA and lateral chest. Comparison: Chest x-ray dated December 21, 2016. Findings: The trachea is midline. The cardiac silhouette is unremarkable. Hazy opacification over the left lo wer lobe. Remaining lungs are clear. No obvious pleural effusion or pneumothorax. The bony thorax is unremarkable. IMPRESSION: Hazy opacification overlying the left lower lobe may represent atelectasis, early infiltr ate, or aspiration given history. Reported By:
[2017-01-08 13:34] LABS: BASOPHILS % (AUTO) 0.4 % (0.2-1.0); EOSINOPHILS % (AUTO) 0.1 % (0.9-2.9); HEMATOCRIT 34.7 % (42.0-54.0); HEMOGLOBIN 11.7 g/dL (13.5-18.0); LYMPHOCYTES # (AUTO) 1.7 X10^3/uL (1.3-2.9); LYMPHOCYTES % (AUTO) 17.2 % (21.0-51.0); MEAN CORPUSCULAR HEMOGLOBIN 27.5 pg (27.0-34.0); MEAN CORPUSCULAR HGB CONC 33.6 g/dL (33.0-35.0); MEAN CORPUSCULAR VOLUME 81.9 fL (80.0-100.0); MEAN PLATELET VOLUME 7.8 fL (7.4-11.0); MONOCYTES # (AUTO) 1.5 x10^3/uL (0.3-0.8); MONOCYTES % (AUTO) 15.3 % (0.0-13.0); NEUTROPHILS # (AUTO) 6.7 x10^3/uL (2.2-4.8); PLATELET COUNT 176 X10^3/uL (150.0-450.0); RED BLOOD COUNT 4.24 X10^6/uL (4.7-6.0); RED CELL DISTRIBUTION WIDTH 15.8 % (11.6-16.5); WHITE BLOOD COUNT 10.1 X10^3/uL (3.6-10.0)
== END | disposition home or self-care (01) ==
LOC: RAD 09:15
PROVIDERS: ATTEND Internal Medicine
DX: K11.7 Disturbances of salivary secretion (principal); R06.6 Hiccough; R05 Cough
CPT/HCPCS: 36415; 71020; 85025

== ENCOUNTER → 2017-01-11 | Outpatient (CLI) | payer OTHER ==
[2016-12-21 12:21] VITALS: BP 96/64
--- NOTE | 2017-01-11 19:17 | CT ---
CT head without contrast Indication: Altered mental status Comparison: 11/11/2015 Technique: CT images of the head were obtained without contrast. Automatic exposure control was utili [employer]. Findings: There is marked generalized brain atrophy with concomitant ventricular and sulcal enlargeme nt, similar to prior. There is unchanged left frontal encephalomalacia in keeping with remote infarct . There is no acute bleed, generalized edema, mass effect, or abnormal extra-axial collection. No acu te skeletal abnormality. The visualized paranasal sinuses and mastoid air cells are clear. Impression: No acute intracranial abnormality. Remote left MCA infarct. Reported By:
== END | disposition home or self-care (01) | DRG 947 ==
LOC: RAD 15:10
PROVIDERS: ATTEND Internal Medicine
DX: R41.82 Altered mental status, unspecified (principal); I63.512 Cerebral infarction due to unspecified occlusion or stenosis of left middle cerebral artery
CPT/HCPCS: 70450

== ENCOUNTER 2017-01-17 22:38 | Emergency (ER) | payer OTHER ==
--- NOTE | 2017-01-17 22:58 | DR.GENAD ---
HPI - PCP Primary Care Physician: Phong - Complaint/Symptoms Chief Complaint Doctors Comments: He was sent over from the [place] because of low O2 sat that was noted tonight. there was no report of c/p, nausea or diaphoresis. There is a hx. of a recent pneumonia dx. via a CXR on 01/08/17. This is been treated outpt. with Cipro. - Source History Provided: Group Home - Mode of Arrival Mode of Arrival: Stretcher PMH - PMH Past Medical History: COPD, CVA, GERD, Hypertension Past Surgical History: Yes Surgical History: Cholecystectomy - Family History Family Medical History: Cancer - Social History Do you use any recreational Drugs:: No ROS - Review of Systems Constitutional: No Symptoms Reported Eyes: No Symptoms Reported ENTM: No Symptoms Reported Respiratoy: No Symptoms Reported Cardiovascular: No Symptoms Reported Gastrointestinal/Abdominal: No Symptoms Reported Genitourinary: No Symptoms Reported Neurological: No Symptoms Reported Musculoskeletal: No Symptoms Reported Integumentary: No Symptoms Reported Hematologic/Lymphatic: No Symptoms Reported Endocrine: No Symptoms Reported Psychiatric: No Symptoms Reported All Other Systems: Reviewed and Negative PE - Vital Signs Vitals: Temperature 99.7 F Pulse Rate [Left] 95 Pulse Rate 102 Respiratory Rate 22 Blood Pressure [Left Arm] 111/73 Blood Pressure [Right Arm] 142/65 Blood Pressure 105/82 O2 Sat by Pulse Oximetry 94 - General Limitations: Physical Limitation General Appearance: In No Apparent Distress, Other (He is asleep comfortably but arousable. His O2 sat. is in the upper 90s% since beeing here. ) - Head Head Exam: Normal Inspection - Eyes Eye exam: Normal Appearance, PERRL - ENT ENT Exam: Normal Exam - Neck Neck Exam: Normal Inspection, Trachea Midline - Chest Chest Inspection: Normal Inspection, Symmetric Chest Wall Rise - Respiratory Respiratory Exam: Normal Lung Sounds Bilat - Cardiovascular Cardiovascular Exam: Regular Rate, Normal Rhythm - Abdominal Exam Abdominal Exam: Normal Inspection, Normal Bowel Sounds, Soft - Extremities Extremities Exam: Normal Inspection - Back Back Exam: Normal Inspection - Neurologic Neurological Exam: Other (He is as;eep but arousable) Course - Treatment Treatment: None, his oxygen saturation has been in the 90s% since arrival in the [facility]. He work up is not suggestive of acute lung processes. I will discharge him back to the [facility] to complete his course of outpt. antibiotic for pneumonia. ROR - Labs Reviewed Result Diagrams: 01/17/17 22:45 01/17/17 22:45 Laboratory: WBC 15.7 X10^3/uL (3.6-10.0) H 01/17/17 22:45 RBC 4.38 X10^6/uL (4.7-6.0) L 01/17/17 22:45 Hgb 11.8 g/dL (13.5-18.0) L 01/17/17 22:45 Hct 35.7 % (42.0-54.0) L 01/17/17 22:45 MCV 81.4 fL (80.0-100.0) 01/17/17 22:45 MCH 26.9 pg (27.0-34.0) L 01/17/17 22:45 MCHC 33.1 g/dL (33.0-35.0) 01/17/17 22:45 RDW 16.3 % (11.6-16.5) 01/17/17 22:45 Plt Count 355 X10^3/uL (150.0-450.0) 01/17/17 22:45 MPV 7.3 fL (7.4-11.0) L 01/17/17 22:45 Neut % 83.9 % (42.0-75.0) H 01/17/17 22:45 Lymph % 8.2 % (21.0-51.0) L 01/17/17 22:45 [place] % 7.5 % (0.0-13.0) 01/17/17 22:45 Eos % 0.2 % (0.9-2.9) L 01/17/17 22:45 Baso % 0.2 % (0.2-1.0) 01/17/17 22:45 Neut # 13.2 x10^3/uL (2.2-4.8) H 01/17/17 22:45 Lymph # 1.3 X10^3/uL (1.3-2.9) 01/17/17 22:45 [place] # 1.2 x10^3/uL (0.3-0.8) H 01/17/17 22:45 Eos # 0.0 x10^3/uL (0.0-0.2) 01/17/17 22:45 Baso # 0.0 X10^3/uL (0.0-0.1) 01/17/17 22:45 Absolute Nucleated RBC 0.2 /100WBC 01/17/17 22:45 Sodium 145 mmol/L (136-145) 01/17/17 22:45 Corrected Sodium 146 mmol/L (136-145) H 01/17/17 22:45 Potassium 3.6 mmol/L (3.5-5.1) 01/17/17 22:45 Chloride 106 mmol/L (98-107) 01/17/17 22:45 Carbon Dioxide 26.2 mmol/L (21-32) 01/17/17 22:45 BUN 47 mg/dL (7-18) H 01/17/17 22:45 Creatinine 1.72 mg/dL (0.70-1.30) H 01/17/17 22:45 Est GFR (MDRD) Af Amer 51 (>60) L 01/17/17 22:45 Est GFR (MDRD) Non-Af 42 (>60) L 01/17/17 22:45 Glucose 121 mg/dL (65-99) H 01/17/17 22:45 Calcium 10.7 mg/dL (8.5-10.1) H 01/17/17 22:45 - XRAY XRAY Interpreted by: Radiologist (CXR: no acute cardiopulmonary disease. no change from previous study ) - EKG Rate: 106 [place]: Normal Rhythm: ST Block: LBBB - Diagnosis Discharge Problem: Pneumonia - Discharge Plan Disposition: 03 XFER SNF Condition: Stable - Follow ups/Referrals Follow ups/Referrals: Lionel Darling [Primary Care Provider] - 3 days - Instructions
[2017-01-17 23:03] VITALS: BMI 26.2
[2017-01-17 23:07] LABS: BASOPHILS % (AUTO) 0.2 % (0.2-1.0); EOSINOPHILS % (AUTO) 0.2 % (0.9-2.9); HEMATOCRIT 35.7 % (42.0-54.0); HEMOGLOBIN 11.8 g/dL (13.5-18.0); LYMPHOCYTES # (AUTO) 1.3 X10^3/uL (1.3-2.9); LYMPHOCYTES % (AUTO) 8.2 % (21.0-51.0); MEAN CORPUSCULAR HEMOGLOBIN 26.9 pg (27.0-34.0); MEAN CORPUSCULAR HGB CONC 33.1 g/dL (33.0-35.0); MEAN CORPUSCULAR VOLUME 81.4 fL (80.0-100.0); MEAN PLATELET VOLUME 7.3 fL (7.4-11.0); MONOCYTES # (AUTO) 1.2 x10^3/uL (0.3-0.8); MONOCYTES % (AUTO) 7.5 % (0.0-13.0); NEUTROPHILS # (AUTO) 13.2 x10^3/uL (2.2-4.8); NEUTROPHILS % (AUTO) 83.9 % (42.0-75.0); PLATELET COUNT 355 X10^3/uL (150.0-450.0); RED BLOOD COUNT 4.38 X10^6/uL (4.7-6.0); RED CELL DISTRIBUTION WIDTH 16.3 % (11.6-16.5); WHITE BLOOD COUNT 15.7 X10^3/uL (3.6-10.0)
--- NOTE | 2017-01-17 23:13 | RAD ---
AP chest Indication: Shortness of breath Comparison: 01/08/2017 Findings: The trachea is midline. Heart size is normal. There is elevation left hemidiaphragm. No foc al airspace opacity, pleural effusion or pneumothorax. No acute osseous abnormality. Impression: No acute cardiopulmonary abnormality or change from prior exam. Reported By:
[2017-01-17 23:18] LABS: CALCIUM 10.7 mg/dL (8.5-10.1); CARBON DIOXIDE 26.2 mmol/L (21-32); CREATININE 1.72 mg/dL (0.70-1.30)
[2017-01-18 01:43] VITALS: BP 118/85
== END 2017-01-18 02:00 | disposition home or self-care (01) ==
LOC: ER 22:43
DX: J18.9 Pneumonia, unspecified organism (principal)
CPT/HCPCS: 36415; 71010; 80048; 85025; 93005; 96365; 99283; A4222

== ENCOUNTER 2017-01-19 12:43 | Inpatient (IN) | payer OTHER ==
[2017-01-19] MEDS ORDERED: NS 1/2 1000 ML IV 1,000 ML IV ONE (14:53)
[2017-01-19] MEDS ORDERED: SALINE 3% 15 ML NEB TX NEB ONE (15:00)
[2017-01-19] MEDS: NS 1/2 1000 ML IV 1,000 ML IV SCH (15:01)
[2017-01-19] MEDS ORDERED: SALINE 3% 15 ML NEB TX ONE (15:03)
[2017-01-19 15:18] LABS: BASOPHILS # (AUTO) 0.1 X10^3/uL (0.0-0.1); BASOPHILS % (AUTO) 0.4 % (0.2-1.0); EOSINOPHILS # (AUTO) 0.1 x10^3/uL (0.0-0.2); EOSINOPHILS % (AUTO) 0.7 % (0.9-2.9); HEMATOCRIT 38.3 % (42.0-54.0); HEMOGLOBIN 12.6 g/dL (13.5-18.0); LYMPHOCYTES # (AUTO) 1.9 X10^3/uL (1.3-2.9); MEAN CORPUSCULAR HEMOGLOBIN 27.1 pg (27.0-34.0); MEAN CORPUSCULAR HGB CONC 32.8 g/dL (33.0-35.0); MEAN CORPUSCULAR VOLUME 82.6 fL (80.0-100.0); MEAN PLATELET VOLUME 7.3 fL (7.4-11.0); MONOCYTES # (AUTO) 1.3 x10^3/uL (0.3-0.8); MONOCYTES % (AUTO) 9.4 % (0.0-13.0); NEUTROPHILS # (AUTO) 10.4 x10^3/uL (2.2-4.8); NEUTROPHILS % (AUTO) 75.5 % (42.0-75.0); PLATELET COUNT 446 X10^3/uL (150.0-450.0); RED BLOOD COUNT 4.63 X10^6/uL (4.7-6.0); RED CELL DISTRIBUTION WIDTH 16.9 % (11.6-16.5); WHITE BLOOD COUNT 13.8 X10^3/uL (3.6-10.0)
--- NOTE | 2017-01-19 15:30 | RAD ---
Examination: Chest, PA and lateral views History: SOB, pneumonia, hypertension and diabetes Comparison reference: 01/17/2017 Findings: Continued normal heart size. The lungs are again noted to be diminished in volumes, accentu ated basal markings. There is no evidence for consolidation, pneumothorax or large pleural effusion. Impression: No interval change or acute abnormality noted. See above. Reported By:
[2017-01-19 15:45] LABS: ALANINE AMINOTRANSFERASE 26 Units/L (12-78); ALBUMIN 2.5 g/dL (3.4-5.0); ALKALINE PHOSPHATASE 54 Units/L (46-116); ASPARTATE AMINO TRANSFERASE 33 Units/L (15-37); BLOOD UREA NITROGEN 42 mg/dL (7-18); CARBON DIOXIDE 29.7 mmol/L (21-32); CHLORIDE 111 mmol/L (98-107); COR CA(FOR HYPOALB) 12.2 mg/dL (8.5-10.1); CREATININE 1.82 mg/dL (0.70-1.30); TOTAL PROTEIN 8.4 g/dL (6.4-8.2); eGFR BLACK RACES 47 (>60); eGFR NON BLACK RACES 39 (>60)
[2017-01-19 15:47] LABS: SODIUM 151 mmol/L (136-145)
[2017-01-19] MEDS: DUONEB 0.5 MG/3 MG NEB SCH (16:02)
[2017-01-19] MEDS: PULMICORT NEB TX 0.5 MG NEB SCH (20:34)
[2017-01-19] MEDS: BROVANA IN SCH (20:35)
[2017-01-20] MEDS: DUONEB 0.5 MG/3 MG NEB SCH ×4 (00:45→17:30)
[2017-01-20] MEDS ORDERED: NS 1/2 1000 ML IV 1,000 ML IV ONE ×2 (02:28→13:26)
[2017-01-20] MEDS: NS 1/2 1000 ML IV 1,000 ML IV SCH ×4 (02:44→22:57)
[2017-01-20 06:35] LABS: BASOPHILS # (AUTO) 0.1 X10^3/uL (0.0-0.1); BASOPHILS % (AUTO) 0.5 % (0.2-1.0); EOSINOPHILS # (AUTO) 0.1 x10^3/uL (0.0-0.2); EOSINOPHILS % (AUTO) 1.1 % (0.9-2.9); HEMATOCRIT 35.8 % (42.0-54.0); HEMOGLOBIN 11.7 g/dL (13.5-18.0); LYMPHOCYTES # (AUTO) 2.2 X10^3/uL (1.3-2.9); LYMPHOCYTES % (AUTO) 18.1 % (21.0-51.0); MEAN CORPUSCULAR HEMOGLOBIN 26.9 pg (27.0-34.0); MEAN CORPUSCULAR HGB CONC 32.8 g/dL (33.0-35.0); MEAN PLATELET VOLUME 7.4 fL (7.4-11.0); MONOCYTES # (AUTO) 1.3 x10^3/uL (0.3-0.8); NEUTROPHILS # (AUTO) 8.3 x10^3/uL (2.2-4.8); NEUTROPHILS % (AUTO) 69.3 % (42.0-75.0); PLATELET COUNT 398 X10^3/uL (150.0-450.0); RED BLOOD COUNT 4.37 X10^6/uL (4.7-6.0); RED CELL DISTRIBUTION WIDTH 16.5 % (11.6-16.5); WHITE BLOOD COUNT 11.9 X10^3/uL (3.6-10.0)
[2017-01-20 07:00] LABS: ALANINE AMINOTRANSFERASE 27 Units/L (12-78); ALBUMIN 2.3 g/dL (3.4-5.0); ALKALINE PHOSPHATASE 47 Units/L (46-116); ASPARTATE AMINO TRANSFERASE 35 Units/L (15-37); BLOOD UREA NITROGEN 37 mg/dL (7-18); CALCIUM 10.3 mg/dL (8.5-10.1); CARBON DIOXIDE 26.4 mmol/L (21-32); CHLORIDE 111 mmol/L (98-107); COR CA(FOR HYPOALB) 11.7 mg/dL (8.5-10.1); CREATININE 1.59 mg/dL (0.70-1.30); SODIUM 148 mmol/L (136-145); TOTAL PROTEIN 7.5 g/dL (6.4-8.2); eGFR BLACK RACES 55 (>60); eGFR NON BLACK RACES 46 (>60)
[2017-01-20] MEDS: PULMICORT NEB TX 0.5 MG NEB SCH ×2 (12:54→20:40)
[2017-01-20] MEDS: BROVANA IN SCH ×2 (12:54→20:40)
[2017-01-20] MEDS ORDERED: TUSSIONEX PENNKINETIC SUSP PO PRN (13:01)
[2017-01-20] MEDS: MERREM PREMIX IV 500 MG 500 MG/50 ML BAG IV SCH ×2 (13:49→23:15)
[2017-01-20] MEDS ORDERED: CIPRO TAB 500 MG PO SCH (15:21)
[2017-01-20] MEDS ORDERED: THORAZINE INJ 25 MG AMP IM PRN ×2 (15:21→21:01)
[2017-01-20] MEDS: ARICEPT TAB 10 MG PO SCH ×2 (15:31→23:16)
[2017-01-20 15:34] VITALS: BMI 26.3
[2017-01-20] MEDS: NAMENDA TAB 10 MG PO SCH ×2 (15:42→23:16)
[2017-01-20] MEDS: SINGULAIR TAB 10 MG PO SCH (15:42)
[2017-01-20] MEDS: LASIX PO SCH ×2 (15:42→23:16)
[2017-01-20] MEDS: EFFEXOR XR 150 MG CAP PO SCH (15:42)
[2017-01-20] MEDS: ELIQUIS PO SCH ×2 (15:42→22:55)
[2017-01-20] MEDS: ROBITUSSIN DM PO SCH ×2 (16:00→23:15)
[2017-01-20] MEDS: PATANOL 0.1% EYE DROPS EACHEYE SCH ×2 (16:04→23:17)
[2017-01-20] MEDS: GEODON PO SCH ×2 (16:04→23:17)
[2017-01-20] MEDS: PATIENT'S HOME MEDICATION PO SCH ×2 (16:05→22:57)
[2017-01-20] MEDS ORDERED: ZANTAC PO SCH (21:00)
[2017-01-20] MEDS ORDERED: VALPROIC ACID PO SCH (22:00)
[2017-01-20] MEDS: LOPRESSOR TAB 25 MG PO SCH (23:16)
[2017-01-20] MEDS: FLONASE NASAL SPRAY ENOSTRIL SCH (23:21)
[2017-01-21] MEDS: DUONEB 0.5 MG/3 MG NEB SCH ×4 (00:46→17:01)
[2017-01-21] MEDS ORDERED: NS 1/2 1000 ML IV 1,000 ML IV ONE ×2 (02:24→20:31)
[2017-01-21] MEDS: NS 1/2 1000 ML IV 1,000 ML IV SCH ×3 (04:09→21:04)
[2017-01-21] MEDS: PATIENT'S HOME MEDICATION PO SCH ×3 (05:14→21:03)
[2017-01-21] MEDS: MERREM PREMIX IV 500 MG 500 MG/50 ML BAG IV SCH (05:14)
[2017-01-21 07:13] LABS: ALANINE AMINOTRANSFERASE 30 Units/L (12-78); ALBUMIN 2.1 g/dL (3.4-5.0); ALKALINE PHOSPHATASE 41 Units/L (46-116); ASPARTATE AMINO TRANSFERASE 34 Units/L (15-37); BLOOD UREA NITROGEN 24 mg/dL (7-18); CALCIUM 9.5 mg/dL (8.5-10.1); CARBON DIOXIDE 26.8 mmol/L (21-32); CHLORIDE 112 mmol/L (98-107); CREATININE 1.36 mg/dL (0.70-1.30); SODIUM 149 mmol/L (136-145); TOTAL PROTEIN 6.3 g/dL (6.4-8.2); eGFR BLACK RACES > 60 (>60); eGFR NON BLACK RACES 55 (>60)
[2017-01-21 07:28] LABS: BASOPHILS # (AUTO) 0.1 X10^3/uL (0.0-0.1); BASOPHILS % (AUTO) 1.2 % (0.2-1.0); EOSINOPHILS # (AUTO) 0.3 x10^3/uL (0.0-0.2); EOSINOPHILS % (AUTO) 3.4 % (0.9-2.9); HEMATOCRIT 33.8 % (42.0-54.0); HEMOGLOBIN 11.1 g/dL (13.5-18.0); LYMPHOCYTES # (AUTO) 1.7 X10^3/uL (1.3-2.9); LYMPHOCYTES % (AUTO) 17.2 % (21.0-51.0); MEAN CORPUSCULAR HEMOGLOBIN 27.2 pg (27.0-34.0); MEAN CORPUSCULAR HGB CONC 32.7 g/dL (33.0-35.0); MEAN CORPUSCULAR VOLUME 83.3 fL (80.0-100.0); MEAN PLATELET VOLUME 7.5 fL (7.4-11.0); MONOCYTES # (AUTO) 0.8 x10^3/uL (0.3-0.8); MONOCYTES % (AUTO) 8.1 % (0.0-13.0); NEUTROPHILS # (AUTO) 6.8 x10^3/uL (2.2-4.8); NEUTROPHILS % (AUTO) 70.1 % (42.0-75.0); PLATELET COUNT 303 X10^3/uL (150.0-450.0); RED BLOOD COUNT 4.06 X10^6/uL (4.7-6.0); RED CELL DISTRIBUTION WIDTH 16.4 % (11.6-16.5); WHITE BLOOD COUNT 9.7 X10^3/uL (3.6-10.0)
[2017-01-21 07:55] LABS: PLATELET MORPHOLOGY COMMENT NORMAL (NORMAL)
[2017-01-21] MEDS: EFFEXOR XR 150 MG CAP PO SCH (08:24)
[2017-01-21] MEDS: ELIQUIS PO SCH ×2 (08:24→20:52)
[2017-01-21] MEDS: LASIX PO SCH ×2 (08:24→20:53)
[2017-01-21] MEDS: SINGULAIR TAB 10 MG PO SCH (08:24)
[2017-01-21] MEDS: GEODON PO SCH ×2 (08:24→20:53)
[2017-01-21] MEDS: ROBITUSSIN DM PO SCH ×4 (08:25→20:53)
[2017-01-21] MEDS: LOPRESSOR TAB 25 MG PO SCH ×2 (08:25→20:53)
[2017-01-21] MEDS: NAMENDA TAB 10 MG PO SCH ×2 (08:25→20:53)
[2017-01-21] MEDS: PATANOL 0.1% EYE DROPS EACHEYE SCH ×2 (08:26→20:53)
[2017-01-21] MEDS: FLONASE NASAL SPRAY ENOSTRIL SCH ×2 (08:26→20:52)
[2017-01-21] MEDS: BROVANA IN SCH ×2 (08:58→20:30)
[2017-01-21] MEDS: PULMICORT NEB TX 0.5 MG NEB SCH ×2 (08:58→20:30)
[2017-01-21] MEDS: PROVENTIL NEB TX 0.083% 2.5MG/ 3ML NEB PRN (08:58)
[2017-01-21] MEDS ORDERED: GEODON PO SCH (09:00)
[2017-01-21] MEDS ORDERED: SINGULAIR TAB 10 MG PO SCH (09:00)
[2017-01-21] MEDS ORDERED: EFFEXOR XR 150 MG CAP PO SCH (09:00)
[2017-01-21] MEDS ORDERED: PATIENT'S HOME MEDICATION INH SCH (09:00)
[2017-01-21] MEDS ORDERED: ZIPRASIDONE HCL 40 MG PO SCH (09:00)
[2017-01-21] MEDS ORDERED: LASIX PO SCH (09:00)
[2017-01-21] MEDS ORDERED: QUETIAPINE FUMARATE 50 MG PO SCH (09:00)
[2017-01-21] MEDS ORDERED: ZANTAC PO SCH (09:00)
[2017-01-21] MEDS ORDERED: PATIENT'S HOME MEDICATION (Umeclidinium-Vilanterol 1 PUFF) INH SCH (09:00)
[2017-01-21] MEDS ORDERED: NAMENDA TAB 10 MG PO SCH ×2 (09:00→21:00)
[2017-01-21] MEDS ORDERED: PATANOL 0.1% EYE DROPS EACHEYE SCH (09:00)
[2017-01-21] MEDS ORDERED: LOPRESSOR TAB 25 MG PO SCH (09:00)
[2017-01-21] MEDS ORDERED: ELIQUIS PO SCH (09:00)
[2017-01-21] MEDS: MERREM VIAL 500 MG in D5W 100 ML IV 100 ML IV SCH ×2 (13:47→21:03)
[2017-01-21] MEDS: ARICEPT TAB 10 MG PO SCH (20:52)
[2017-01-21] MEDS ORDERED: ARICEPT TAB 10 MG PO SCH (21:00)
[2017-01-22] MEDS: DUONEB 0.5 MG/3 MG NEB SCH ×4 (00:34→17:10)
[2017-01-22] MEDS: COLACE CAP 100 MG PO SCH ×2 (01:39→21:03)
[2017-01-22] MEDS: MILK OF MAGNESIA PO SCH ×2 (01:39→21:04)
[2017-01-22] MEDS ORDERED: NS 100 ML IV 100 ML IV ONE ×2 (04:47→20:07)
[2017-01-22] MEDS ORDERED: MERREM VIAL ONE ×2 (04:55→20:04)
[2017-01-22] MEDS: NS 1/2 1000 ML IV 1,000 ML IV SCH ×3 (06:00→13:13)
[2017-01-22] MEDS: MERREM VIAL 500 MG in D5W 100 ML IV 100 ML IV SCH ×3 (06:03→21:05)
[2017-01-22] MEDS: PATIENT'S HOME MEDICATION PO SCH ×3 (06:03→21:05)
[2017-01-22 07:17] LABS: BASOPHILS # (AUTO) 0.1 X10^3/uL (0.0-0.1); BASOPHILS % (AUTO) 0.7 % (0.2-1.0); EOSINOPHILS # (AUTO) 0.2 x10^3/uL (0.0-0.2); EOSINOPHILS % (AUTO) 2.6 % (0.9-2.9); HEMATOCRIT 30.6 % (42.0-54.0); HEMOGLOBIN 10.1 g/dL (13.5-18.0); LYMPHOCYTES # (AUTO) 1.8 X10^3/uL (1.3-2.9); LYMPHOCYTES % (AUTO) 23.7 % (21.0-51.0); MEAN CORPUSCULAR HEMOGLOBIN 27.2 pg (27.0-34.0); MEAN CORPUSCULAR HGB CONC 32.9 g/dL (33.0-35.0); MEAN CORPUSCULAR VOLUME 82.7 fL (80.0-100.0); MEAN PLATELET VOLUME 7.2 fL (7.4-11.0); MONOCYTES # (AUTO) 0.9 x10^3/uL (0.3-0.8); MONOCYTES % (AUTO) 11.4 % (0.0-13.0); NEUTROPHILS # (AUTO) 4.7 x10^3/uL (2.2-4.8); NEUTROPHILS % (AUTO) 61.6 % (42.0-75.0); PLATELET COUNT 283 X10^3/uL (150.0-450.0); RED CELL DISTRIBUTION WIDTH 16.5 % (11.6-16.5); WHITE BLOOD COUNT 7.5 X10^3/uL (3.6-10.0)
[2017-01-22 07:42] LABS: ALANINE AMINOTRANSFERASE 19 Units/L (12-78); ALBUMIN 1.9 g/dL (3.4-5.0); ALKALINE PHOSPHATASE 41 Units/L (46-116); ASPARTATE AMINO TRANSFERASE 23 Units/L (15-37); BLOOD UREA NITROGEN 16 mg/dL (7-18); CALCIUM 8.9 mg/dL (8.5-10.1); CARBON DIOXIDE 26.2 mmol/L (21-32); CHLORIDE 110 mmol/L (98-107); COR CA(FOR HYPOALB) 10.6 mg/dL (8.5-10.1); CREATININE 1.17 mg/dL (0.70-1.30); SODIUM 143 mmol/L (136-145); TOTAL PROTEIN 5.9 g/dL (6.4-8.2); eGFR BLACK RACES > 60 (>60); eGFR NON BLACK RACES > 60 (>60)
[2017-01-22] MEDS: SINGULAIR TAB 10 MG PO SCH (08:22)
[2017-01-22] MEDS: ELIQUIS PO SCH ×2 (08:22→21:03)
[2017-01-22] MEDS: ROBITUSSIN DM PO SCH ×4 (08:22→21:05)
[2017-01-22] MEDS: LASIX PO SCH ×2 (08:22→21:04)
[2017-01-22] MEDS: GEODON PO SCH ×2 (08:23→21:04)
[2017-01-22] MEDS: LOPRESSOR TAB 25 MG PO SCH ×2 (08:23→21:04)
[2017-01-22] MEDS: NAMENDA TAB 10 MG PO SCH ×2 (08:23→21:05)
[2017-01-22] MEDS: EFFEXOR XR 150 MG CAP PO SCH (08:23)
[2017-01-22] MEDS: FLONASE NASAL SPRAY ENOSTRIL SCH ×2 (08:24→21:04)
[2017-01-22] MEDS: PATANOL 0.1% EYE DROPS EACHEYE SCH ×2 (08:24→21:05)
[2017-01-22] MEDS: PULMICORT NEB TX 0.5 MG NEB SCH ×2 (08:36→20:21)
[2017-01-22] MEDS: PROVENTIL NEB TX 0.083% 2.5MG/ 3ML NEB PRN ×2 (08:36→20:21)
[2017-01-22] MEDS: BROVANA IN SCH ×2 (08:36→20:21)
--- NOTE | 2017-01-22 10:11 | RAD ---
HISTORY: 71-year-old male with pneumonia. Study: Frontal view of the chest. Comparison: Chest radiograph 01/19/2017 Findings: The trachea is midline. The cardiac silhouette is stably enlarged. Low lung volumes. Platelike atele ctasis within the lingula. The lungs are clear without focal consolidation, effusion or pneumothorax . Soft tissues are unremarkable. Osseous structures are unremarkable. IMPRESSION: 1. Low lung volumes with small focus of platelike atelectasis within the lingula. Reported By:
[2017-01-22] MEDS ORDERED: NS 1/2 1000 ML IV 1,000 ML IV ONE (12:49)
[2017-01-22] MEDS: ARICEPT TAB 10 MG PO SCH (21:03)
[2017-01-22] MEDS ORDERED: PROVENTIL NEB TX 0.083% 2.5MG/ 3ML NEB PRN (23:56)
[2017-01-22] MEDS ORDERED: THORAZINE INJ 25 MG AMP IM PRN (23:56)
[2017-01-22] MEDS ORDERED: TUSSIONEX PENNKINETIC SUSP PO PRN (23:56)
[2017-01-23] MEDS: DUONEB 0.5 MG/3 MG NEB SCH ×3 (01:23→11:27)
[2017-01-23] MEDS ORDERED: NS 1/2 1000 ML IV 1,000 ML IV SCH (02:18)
[2017-01-23] MEDS ORDERED: NS 1/2 1000 ML IV 1,000 ML IV ONE (03:39)
[2017-01-23 04:55] LABS: BASOPHILS % (AUTO) 0.5 % (0.2-1.0); EOSINOPHILS # (AUTO) 0.1 x10^3/uL (0.0-0.2); EOSINOPHILS % (AUTO) 1.8 % (0.9-2.9); HEMATOCRIT 28.7 % (42.0-54.0); HEMOGLOBIN 9.7 g/dL (13.5-18.0); LYMPHOCYTES # (AUTO) 1.5 X10^3/uL (1.3-2.9); LYMPHOCYTES % (AUTO) 20.9 % (21.0-51.0); MEAN CORPUSCULAR HEMOGLOBIN 27.5 pg (27.0-34.0); MEAN CORPUSCULAR HGB CONC 33.6 g/dL (33.0-35.0); MEAN CORPUSCULAR VOLUME 81.7 fL (80.0-100.0); MEAN PLATELET VOLUME 7.6 fL (7.4-11.0); MONOCYTES # (AUTO) 0.6 x10^3/uL (0.3-0.8); NEUTROPHILS # (AUTO) 4.8 x10^3/uL (2.2-4.8); NEUTROPHILS % (AUTO) 67.8 % (42.0-75.0); PLATELET COUNT 282 X10^3/uL (150.0-450.0); RED BLOOD COUNT 3.52 X10^6/uL (4.7-6.0); RED CELL DISTRIBUTION WIDTH 16.5 % (11.6-16.5); WHITE BLOOD COUNT 7.2 X10^3/uL (3.6-10.0)
[2017-01-23] MEDS ORDERED: PATIENT'S HOME MEDICATION PO SCH ×2 (06:00→14:00)
[2017-01-23] MEDS ORDERED: MERREM VIAL 500 MG in D5W 100 ML IV 100 ML IV SCH (06:00)
[2017-01-23 06:30] LABS: ALANINE AMINOTRANSFERASE 21 Units/L (12-78); ALBUMIN 1.9 g/dL (3.4-5.0); ALKALINE PHOSPHATASE 46 Units/L (46-116); ASPARTATE AMINO TRANSFERASE 23 Units/L (15-37); BLOOD UREA NITROGEN 14 mg/dL (7-18); CALCIUM 8.8 mg/dL (8.5-10.1); CHLORIDE 107 mmol/L (98-107); COR CA(FOR HYPOALB) 10.5 mg/dL (8.5-10.1); CREATININE 1.04 mg/dL (0.70-1.30); SODIUM 139 mmol/L (136-145); TOTAL PROTEIN 5.9 g/dL (6.4-8.2); eGFR BLACK RACES > 60 (>60); eGFR NON BLACK RACES > 60 (>60)
--- NOTE | 2017-01-23 07:22 | RAD ---
Examination: Portable AP chest History: SOB, pneumonia Comparison reference 01/22/2017 Findings: Continued normal heart size with symmetric pulmonary underinflation. Interval resolution of previous discoid atelectasis left lung. There remains mild elevation of the left diaphragm. Impression: Interval improvement in subsegmental atelectasis, no new abnormality demonstrated. Reported By:
[2017-01-23] MEDS ORDERED: FLONASE NASAL SPRAY ENOSTRIL SCH (09:00)
[2017-01-23] MEDS ORDERED: PULMICORT NEB TX 0.5 MG NEB SCH (09:00)
[2017-01-23] MEDS ORDERED: LOPRESSOR TAB 25 MG PO SCH (09:00)
[2017-01-23] MEDS ORDERED: EFFEXOR XR 150 MG CAP PO SCH (09:00)
[2017-01-23] MEDS ORDERED: LASIX PO SCH (09:00)
[2017-01-23] MEDS ORDERED: SINGULAIR TAB 10 MG PO SCH (09:00)
[2017-01-23] MEDS ORDERED: ELIQUIS PO SCH (09:00)
[2017-01-23] MEDS ORDERED: BROVANA IN SCH (09:00)
[2017-01-23] MEDS ORDERED: PATANOL 0.1% EYE DROPS EACHEYE SCH (09:00)
[2017-01-23] MEDS ORDERED: NAMENDA TAB 10 MG PO SCH ×2 (09:00→21:00)
[2017-01-23] MEDS ORDERED: GEODON PO SCH (09:00)
[2017-01-23] MEDS: ROBITUSSIN DM PO SCH ×3 (09:43→13:30)
[2017-01-23 12:25] VITALS: BP 109/68
[2017-01-23] MEDS ORDERED: MILK OF MAGNESIA PO SCH (21:00)
[2017-01-23] MEDS ORDERED: COLACE CAP 100 MG PO SCH (21:00)
[2017-01-23] MEDS ORDERED: ARICEPT TAB 10 MG PO SCH (21:00)
[2017-01-25] MEDS ORDERED: NAMENDA TAB 10 MG ONE (20:23)
== END 2017-01-23 14:05 | DRG 202 ==
LOC: ICU 12:43 → MED/SURG 01-22 23:15
PROVIDERS: ADMIT Internal Medicine; ATTEND Internal Medicine
DX: J20.8 Acute bronchitis due to other specified organisms (principal); E87.0 Hyperosmolality and hypernatremia; D72.828 Other elevated white blood cell count; B95.62 Methicillin resistant Staphylococcus aureus infection as the cause of diseases classified elsewhere; R94.4 Abnormal results of kidney function studies; R60.0 Localized edema; F03.90 Unspecified dementia, unspecified severity, without behavioral disturbance, psychotic disturbance, mood disturbance, and anxiety
CPT/HCPCS: 36415; 71010; 71020; 80053; 85025; 87040; 87070; 87075; 87077; 87186; 87205; 94640; 97535; A4222; J2185; J7613; J7620; J7626

== ENCOUNTER 2017-03-08 17:45 | Observation (INO) | payer OTHER ==
--- NOTE | 2017-03-08 17:50 | DR.GENAD ---
HPI - PCP Primary Care Physician: angie - HPI Comment HPI Comment: NO FEVER. HISTORY COPD ON HOME OXYGEN. EMS GAVE NEB TREATMENT DURING TRANSPORTATION. POST CVA PATIENT WHO HAVE DYSARTHRIA. COMPREHENDS. HIS WEAKNESS HAVE INCREASE PAST FEW DAYS. - Complaint/Symptoms Chief Complaint Doctors Comments: GENERALIZEWEAKNESS AND INCREASING SOB THAT GOT WORSE TODAY. Chief Complaint:: ems broght pt in having short of breath and wheezing. - Nurses notes reviewed Nurses Notes Review: Yes - Source History Provided: Patient - Mode of Arrival Mode of Arrival: Ambulatory - Timing Onset of Chief Complaint: 03/08/17 Came on: Suddenly - Duration Duration: Constant Duration: Days - Severity Severity: Moderate PMH - PMH Past Medical History: Yes Past Medical History: COPD, CVA, GERD, Hypertension Past Surgical History: Yes Surgical History: Cholecystectomy, Ortho Surgery - Family History History of Family Medical Conditions: Yes Family Medical History: Cancer - Social History Does patient currently use any type of tobacco product: No Have you used tobacco products in the last 12 months: No Type of Tobacco Use: None Does any household member use tobacco: No Alcohol Use: None Do you use any recreational Drugs:: No Lives With: Family Lives Where: Home - infectious screening In the last 2 months have you had wt loss of >10#?: NO Have you had fever, night sweats or hemotysis?: No Have you traveled outside the country in the last 6 months?: No Isolation: Standard ROS - Review of Systems Constitutional: Weakness, Fatigue. negative: Chills, Fever Eyes: negative: Eye Pain, Diplopia ENTM: Nose Congestion. negative: Ear Pain, Nose Discharge, Throat Pain Respiratoy: Productive Cough, Short of Breath, Wheezing. negative: Hemoptysis Cardiovascular: Chest Pain Gastrointestinal/Abdominal: Nausea. negative: Abdominal Pain, Constipation, Diarrhea, Vomiting Genitourinary: negative: Hematuria Neurological: Headache, Weakness, Dizziness, Problems Walking, Speech Problem Musculoskeletal: Muscle Pain Integumentary: Dryness. negative: [place] Endocrine: negative: [place] Psychiatric: Depression All Other Systems: Reviewed and Negative PE - Vital Signs Vitals: Temperature 98.6 F Pulse Rate [Left] 68 Pulse Rate 18 Respiratory Rate 20 Blood Pressure [Left Arm] 129/92 Blood Pressure [Right Arm] 129/66 Blood Pressure 142/70 O2 Sat by Pulse Oximetry 100 - General Limitations: Altered Mental Status General Appearance: Alert, Anxious, In Distress - Head Head Exam: Atraumatic - Eyes Eye exam: PERRL, EOMI. negative: Scleral Icterus, Conjunctival Injection - ENT ENT Exam: Normal Oropharynx, Normal External Ear Exam, TM's Normal Bilaterally External Ear Exam: Normal External Inspection TM/Canal Exam: Bilateral Normal Nose Exam: Normal Nose Exam Mouth Exam: Normal Inspection Throat Exam: Normal Inspection - Neck Neck Exam: Trachea Midline - Chest Chest Inspection: Symmetric Chest Wall Rise - Respiratory Respiratory Exam: Normal Lung Sounds Bilat Respiratory Exam: Bilateral Wheezing, Bilateral Rhonchi, Upper Wheezing, Upper Rhonchi, Lower Wheezing, Lower Rhonchi - Cardiovascular Cardiovascular Exam: Regular Rate, Normal Rhythm, Normal Heart Sounds - Abdominal Exam Abdominal Exam: Normal Bowel Sounds, Soft. negative: Tenderness - Extremities Extremities Exam: Edema (TRACE) - Neurologic Neurological Exam: Alert, Other (DYSARTHRIA) - Psychiatric Psychiatric Exam: Depressed - Skin Skin Exam: Normal Color MDM - Additional Information Additional Information Obtained From: Family - Differential Diagnosis Differential Diagnosis: NEW CVA, COPD EXACERBATION, PNEUMONIA, ME, BRONCHITIS Course - Treatment Treatment: SEE ORDERS. - Consultation Consultation Comments: DISCUSS PATIENT WITH DR. BHAT, HE WILL ADMIT PATIENT. - Education/Counseling Education/Counseling: Patient, Family, Education Educated On: Treatment, Diagnosis ROR - Labs Reviewed Laboratory Results Reviewed?: Yes Result Diagrams: 03/08/17 18:25 03/08/17 18:25 Laboratory: WBC 8.0 X10^3/uL (3.6-10.0) 03/08/17 18:25 RBC 4.13 X10^6/uL (4.7-6.0) L 03/08/17 18:25 Hgb 11.0 g/dL (13.5-18.0) L 03/08/17 18:25 Hct 33.6 % (42.0-54.0) L 03/08/17 18:25 MCV 81.2 fL (80.0-100.0) 03/08/17 18:25 MCH 26.7 pg (27.0-34.0) L 03/08/17 18:25 MCHC 32.9 g/dL (33.0-35.0) L 03/08/17 18:25 RDW 16.2 % (11.6-16.5) 03/08/17 18:25 Plt Count 146 X10^3/uL (150.0-450.0) L 03/08/17 18:25 MPV 7.6 fL (7.4-11.0) 03/08/17 18:25 Neut % 68.0 % (42.0-75.0) 03/08/17 18:25 Lymph % 19.8 % (21.0-51.0) L 03/08/17 18:25 [place] % 9.6 % (0.0-13.0) 03/08/17 18:25 Eos % 2.0 % (0.9-2.9) 03/08/17 18:25 Baso % 0.6 % (0.2-1.0) 03/08/17 18: Neut # 5.4 x10^3/uL (2.2-4.8) H 03/08/17 18:25 Lymph # 1.6 X10^3/uL (1.3-2.9) 03/08/17 18:25 [place] # 0.8 x10^3/uL (0.3-0.8) 03/08/17 18:25 Eos # 0.2 x10^3/uL (0.0-0.2) 03/08/17 18:25 Baso # 0.0 X10^3/uL (0.0-0.1) 03/08/17 18:25 Absolute Nucleated RBC 0.1 /100WBC 03/08/17 18:25 Sample Site Rr 03/08/17 18:28 ABG pH 7.430 (7.35-7.45) 03/08/17 18:28 ABG pCO2 45.0 mmHg (35.0-45.0) 03/08/17 18:28 ABG pO2 82.0 mmHg (80.0-100.0) 03/08/17 18:28 ABG HCO3 29.9 mmol/L (22-26) H 03/08/17 18:28 ABG O2 Saturation 96.0 % (90-100) 03/08/17 18:28 ABG Base Excess 4.8 mmol/L (-2.0-2.0) H 03/08/17 18:28 Jeremie Test Pos 03/08/17 18:28 A-a Gradient 90.0 mmHg 03/08/17 18:28 FiO2 32.000 03/08/17 18:28 Blood Gas Comments Pt dario well. cdn 03/08/17 18:28 Sodium 140 mmol/L (136-145) 03/08/17 18:25 Corrected Sodium TNP 03/08/17 18:25 Potassium 4.0 mmol/L (3.5-5.1) 03/08/17 18:25 Chloride 105 mmol/L (98-107) 03/08/17 18:25 Carbon Dioxide 27.4 mmol/L (21-32) 03/08/17 18:25 BUN 10 mg/dL (7-18) 03/08/17 18:25 Creatinine 1.00 mg/dL (0.70-1.30) 03/08/17 18:25 Est GFR (MDRD) Af Amer > 60 (>60) 03/08/17 18:25 Est GFR (MDRD) Non-Af > 60 (>60) 03/08/17 18:25 Glucose 73 mg/dL (65-99) 03/08/17 18:25 Calcium 8.9 mg/dL (8.5-10.1) 03/08/17 18:25 Corrected Calcium 9.7 mg/dL (8.5-10.1) 03/08/17 18:25 Total Bilirubin 0.40 mg/dL (0.2-1.0) 03/08/17 18:25 AST 11 Units/L (15-37) L 03/08/17 18:25 ALT 11 Units/L (12-78) L 03/08/17 18:25 Alkaline Phosphatase 58 Units/L (46-116) 03/08/17 18:25 Creatine Kinase 64 Units/L (39-308) 03/08/17 18:25 CK-MB (CK-2) < 1.0 ng/mL (0-4.0) 03/08/17 18:25 CK/CKMB % Calc 1.6 % (<4) 03/08/17 18:25 Troponin I < 0.02 ng/mL (0-1.5) 03/08/17 18:25 B-Natriuretic Peptide 118 pg/mL (0-79) H 03/08/17 18:25 Total Protein 7.3 g/dL (6.4-8.2) 03/08/17 18:25 Albumin 3.0 g/dL (3.4-5.0) L 03/08/17 18:25 Globulin 4.3 g/dL (2.5-4.5) 18 18:25 Albumin/Globulin Ratio 0.7 Ratio (1.1-2.1) L 18 18:25 Specimen Type Clean catch urine 03/08/17 19:39 Urine Color Yellow (YELLOW) 03/08/17 19:39 Urine Appearance Slightly hazy (CLEAR) 03/08/17 19:39 Urine pH 8.0 (5.0 - 8.0) 03/08/17 19:39 Ur Specific [place] 1.015 (1.000-1.030) 03/08/17 19:39 Urine Protein Negative (NEGATIVE) 03/08/17 19:39 Urine Glucose (UA) Negative (NEGATIVE) 03/08/17 19:39 Urine Ketones Negative (NEGATIVE) 03/08/17 19:39 Urine Occult Blood Negative (NEGATIVE) 03/08/17 19:39 Urine Nitrite Negative (NEGATIVE) 03/08/17 19:39 Urine Bilirubin Negative (NEGATIVE) 03/08/17 19:39 Urine Urobilinogen 1+ (NORMAL) 03/08/17 19:39 Ur Leukocyte Esterase 1+ (NEGATIVE) 03/08/17 19:39 Urine RBC 0-3 /HPF (NEGATIVE) 03/08/17 19:39 Urine WBC 0-3 /HPF (NEGATIVE) 03/08/17 19:39 Ur Squamous Epith Cells Few /HPF (NEGATIVE) 03/08/17 19:39 Urine Bacteria Trace /HPF (NEGATIVE) 03/08/17 19:39 Ur Culture Indicated? No/not indicated 03/08/17 19:39 - XRAY XRAY Interpreted by: Radiologist XRAY Findings: REPORT DISCUSS WITH PATIENT AND FAMILY. - EKG Rhythm: NSR (EKG NOTED.) - Diagnosis Discharge Problem: COPD exacerbation, History of CVA (cerebrovascular accident), Bronchitis Aspiration into airway Qualifiers: Encounter type: initial encounter Qualified Code(s): T17.908A - Unspecified foreign body in respiratory tract, part unspecified causing other injury, initial encounter - Discharge Plan Disposition: 09 ADMITTED INPATIENT Condition: Stable - Follow ups/Referrals - Instructions
--- NOTE | 2017-03-08 18:23 | RAD ---
Chest, AP portable Indication: Shortness of breath Comparison: 02/16/2017 Findings: The cardiac silhouette is unremarkable. The lungs are mildly hypoinflated but essentially c lear without dense infiltrates or large pleural effusion. Impression: No acute chest process or significant change from prior. Reported By:
[2017-03-08 18:33] LABS: ABG ALLEN TEST POS; ABG BASE EXCESS 4.8 mmol/L (-2.0-2.0); ABG HCO3 29.9 mmol/L (22-26)
[2017-03-08 18:37] LABS: BASOPHILS % (AUTO) 0.6 % (0.2-1.0); EOSINOPHILS # (AUTO) 0.2 x10^3/uL (0.0-0.2); HEMATOCRIT 33.6 % (42.0-54.0); LYMPHOCYTES # (AUTO) 1.6 X10^3/uL (1.3-2.9); LYMPHOCYTES % (AUTO) 19.8 % (21.0-51.0); MEAN CORPUSCULAR HEMOGLOBIN 26.7 pg (27.0-34.0); MEAN CORPUSCULAR HGB CONC 32.9 g/dL (33.0-35.0); MEAN CORPUSCULAR VOLUME 81.2 fL (80.0-100.0); MEAN PLATELET VOLUME 7.6 fL (7.4-11.0); MONOCYTES # (AUTO) 0.8 x10^3/uL (0.3-0.8); MONOCYTES % (AUTO) 9.6 % (0.0-13.0); NEUTROPHILS # (AUTO) 5.4 x10^3/uL (2.2-4.8); PLATELET COUNT 146 X10^3/uL (150.0-450.0); RED BLOOD COUNT 4.13 X10^6/uL (4.7-6.0); RED CELL DISTRIBUTION WIDTH 16.2 % (11.6-16.5)
[2017-03-08 18:54] LABS: BLOOD UREA NITROGEN 10 mg/dL (7-18); CALCIUM 8.9 mg/dL (8.5-10.1); CARBON DIOXIDE 27.4 mmol/L (21-32); CHLORIDE 105 mmol/L (98-107); SODIUM 140 mmol/L (136-145); TROPONIN I < 0.02 ng/mL (0-1.5); eGFR BLACK RACES > 60 (>60); eGFR NON BLACK RACES > 60 (>60)
[2017-03-08 18:56] LABS: B-TYPE NATRIURETIC PEPTIDE 118 pg/mL (0-79)
[2017-03-08 18:58] LABS: ALANINE AMINOTRANSFERASE 11 Units/L (12-78); ALKALINE PHOSPHATASE 58 Units/L (46-116); ASPARTATE AMINO TRANSFERASE 11 Units/L (15-37); CKMB % 1.6 % (<4); COR CA(FOR HYPOALB) 9.7 mg/dL (8.5-10.1); CREATINE KINASE 64 Units/L (39-308); CREATINE KINASE MB < 1.0 ng/mL (0-4.0); TOTAL PROTEIN 7.3 g/dL (6.4-8.2)
[2017-03-08] MEDS ORDERED: SOLU-Medrol 125 MG VIAL IVP ONE (19:20)
[2017-03-08] MEDS ORDERED: ROCEPHIN VIAL 1 GM 1 GM in NS 100 ML IV + SPIKE MINIBAG* 100 ML IV ONE (19:21)
[2017-03-08] MEDS ORDERED: SOLU-Medrol 125 MG VIAL ONE (19:28)
[2017-03-08] MEDS ORDERED: ROCEPHIN VIAL 1 GM ONE (19:29)
[2017-03-08] MEDS ORDERED: NS 100 ML IV + SPIKE MINIBAG* 100 ML IV ONE (19:30)
[2017-03-08 19:41] LABS: BILIRUBIN,URINE NEGATIVE (NEGATIVE); BLOOD/HEMOGLOBIN,URINE NEGATIVE (NEGATIVE); GLUCOSE, URINE NEGATIVE (NEGATIVE); KETONES,URINE NEGATIVE (NEGATIVE); LEUKOCYTE ESTERASE ,URINE 1+ (NEGATIVE); NITRITES,URINE NEGATIVE (NEGATIVE); PROTEIN,URINE NEGATIVE (NEGATIVE); UROBILINOGEN,URINE 1+ (NORMAL)
--- NOTE | 2017-03-08 19:45 | CT ---
HISTORY: Altered mental status Study: CT head without contrast Comparison: 01/11/2017 Technique: Axial noncontrast images with coronal and sagittal reformats. Dose reduction procedures we re used with mA/kv adjusted for body size. Findings: The ventricles, cortical sulci, and other CSF spaces are enlarged consistent with generalized atrophy . There is decreased attenuation in the periventricular white matter suggestive of small vessel vascu lar disease. There is evidence for an old large left MCA CVA. There is no evidence for recent CVA, he morrhage, masses, or extra-axial fluid collections. The visualized sinuses are clear. The calvarium i s intact. If acute CVA or extension of the patient's old CVA is a strong clinical consideration MRI w ith diffusion imaging would be of further diagnostic value. IMPRESSION: No definite acute intracranial abnormality Atrophy Small vessel disease Old left MCA stroke Reported By:
[2017-03-08 19:54] LABS: APPEARANCE,URINE SLIGHTLY HAZY (CLEAR); COLOR,URINE YELLOW (YELLOW)
[2017-03-08 19:55] LABS: BACTERIA,URINE TRACE /HPF (NEGATIVE); RBC,URINE 0-3 /HPF (NEGATIVE); SQUAMOUS EPITHELIAL CELL,UR FEW /HPF (NEGATIVE)
[2017-03-08] MEDS: NS 1000 ML 1,000 ML IV SCH (23:18)
[2017-03-09 00:13] LABS: CKMB % 1.6 % (<4); CREATINE KINASE 64 Units/L (39-308); CREATINE KINASE MB < 1.0 ng/mL (0-4.0); TROPONIN I < 0.02 ng/mL (0-1.5)
[2017-03-09 06:27] LABS: BASOPHILS % (AUTO) 0.2 % (0.2-1.0); EOSINOPHILS % (AUTO) 0.1 % (0.9-2.9); HEMATOCRIT 29.9 % (42.0-54.0); LYMPHOCYTES # (AUTO) 0.6 X10^3/uL (1.3-2.9); LYMPHOCYTES % (AUTO) 13.9 % (21.0-51.0); MEAN CORPUSCULAR HEMOGLOBIN 26.9 pg (27.0-34.0); MEAN CORPUSCULAR HGB CONC 33.6 g/dL (33.0-35.0); MONOCYTES # (AUTO) 0.1 x10^3/uL (0.3-0.8); MONOCYTES % (AUTO) 1.9 % (0.0-13.0); NEUTROPHILS # (AUTO) 3.5 x10^3/uL (2.2-4.8); NEUTROPHILS % (AUTO) 83.9 % (42.0-75.0); PLATELET COUNT 144 X10^3/uL (150.0-450.0); RED BLOOD COUNT 3.73 X10^6/uL (4.7-6.0); RED CELL DISTRIBUTION WIDTH 16.3 % (11.6-16.5); WHITE BLOOD COUNT 4.2 X10^3/uL (3.6-10.0)
[2017-03-09 06:36] LABS: ALANINE AMINOTRANSFERASE 12 Units/L (12-78); ALBUMIN 2.6 g/dL (3.4-5.0); ALKALINE PHOSPHATASE 49 Units/L (46-116); ASPARTATE AMINO TRANSFERASE 9 Units/L (15-37); BLOOD UREA NITROGEN 13 mg/dL (7-18); CALCIUM 8.6 mg/dL (8.5-10.1); CARBON DIOXIDE 23.6 mmol/L (21-32); CHLORIDE 104 mmol/L (98-107); COR CA(FOR HYPOALB) 9.7 mg/dL (8.5-10.1); COR NA(FOR HYPERGLY) 138 mmol/L (136-145); CREATININE 0.99 mg/dL (0.70-1.30); MAGNESIUM 1.7 mg/dL (1.7-2.9); SODIUM 137 mmol/L (136-145); TOTAL PROTEIN 6.6 g/dL (6.4-8.2); eGFR BLACK RACES > 60 (>60); eGFR NON BLACK RACES > 60 (>60)
[2017-03-09 06:59] LABS: CKMB % 1.8 % (<4); CREATINE KINASE 56 Units/L (39-308); CREATINE KINASE MB < 1.0 ng/mL (0-4.0); TROPONIN I < 0.02 ng/mL (0-1.5)
[2017-03-09] MEDS ORDERED: MAALOX or MYLANTA PO PRN (07:28)
[2017-03-09] MEDS ORDERED: QUETIAPINE FUMARATE 50 MG PO SCH (10:30)
[2017-03-09] MEDS ORDERED: ZIPRASIDONE HCL 40 MG PO SCH (10:30)
[2017-03-09] MEDS: LASIX PO SCH ×2 (12:57→21:20)
[2017-03-09] MEDS: NS 1000 ML 1,000 ML IV SCH (13:41)
[2017-03-09] MEDS: NAMENDA TAB 10 MG PO SCH (13:57)
[2017-03-09] MEDS: SINGULAIR TAB 10 MG PO SCH (13:57)
[2017-03-09] MEDS: LOPRESSOR TAB 25 MG PO SCH ×2 (13:57→21:23)
[2017-03-09] MEDS: EFFEXOR XR 150 MG CAP PO SCH (13:58)
[2017-03-09] MEDS: ELIQUIS PO SCH ×2 (13:58→21:28)
[2017-03-09] MEDS: ZANTAC PO SCH ×2 (13:59→21:29)
--- NOTE | 2017-03-09 14:09 | DR.H&P ---
H&P - History & Physical for Day of: H&P Date: 03/08/17 - Chief Complaint Chief Complaint: short of breath - Allergies Allergies/Adverse Reactions: Allergies Allergy/AdvReac Type Severity Reaction Status Date / Time No Known Drug Allergies Allergy Verified 09/09/16 12:13 - History of Present Illness History of Present Illness: is a 71 year old patient of ours who presented to the emergency room via EMS with complaints of shortness of breath and wheezing. Patients son is reporting that patient has been noted with generalized weakness and increasing shortness of breath. He states that symptoms have progressively gotten worse over the past several days. Associated symptoms include weakness, fatigue, nasal congestion, productive cough, shortness of breath, wheezing, chest pain, nausea, headache, problems walking and speech problems. Medical history includes CVA, dysarthria, hypertension, pneumonia, COPD, prostate surgery, and depression. On examination, heart is regular in rate and rhythm. Bilateral lungs are noted with scattered wheezing and rhonchi. Abdomen is round, soft, and non-tender with normal bowel sounds noted in all quadrants. Bilateral lower extremities are noted with trace edema. On arrival to the ER, vitals were 98.3, 69, 22, 100%RA, 148/72. Labs and xrays/ CT were obtained. Abnormal Labs include the following: RBC 4.13, Hgb 11.0, Hct 33.6, MCH 26.7, MCHC 32.9, Plt Count 146, AST 11, ALT 11, BNP 118, Albumin 3.0, A/G Ratio 0.7. Urinalysis: Urobilinogen 1+, Leuk [place] 1+, RB C0-3, WBC 0-3, Squam Epith Cells Few, Bacteria Trace. Blood Culture (x2) Pending. ABG: HCO3 29.9, Base Excess 4.8. EKG: Sinus rhythm. Heart rate=63. Chest xray: No acute chest process or significant change from prior. Head CT: No definite acute intracranial abnormality. Atophy. Small vessel disease. Old left MCA stoke. He was given rocephin 1gm iv x 1 and solumedrol 125mg iv x 1 in the ER. Only slight improvement in symptoms noted. We admitted patient to the hospital for further treatment and evaluation. We plan to follow up with AM labs and continue to monitor patient. - Past Medical History Past Medical History: COPD, CVA, GERD, Hypertension Additional Medical History: Prostate Cancer, Chronic Cholelithiasis - Past Surgical History Surgical History: Cholecystectomy, Ortho Surgery Additional Surgical History: Prostatectomy, Hiatal Hernia Repair, Left Knee - Family History Family Medical History: Cancer - Social History Does patient currently use any type of tobacco product: No Have you used tobacco products in the last 12 months: No Type of Tobacco Use: None Does any household member use tobacco: No Alcohol Use: None Drug Use: None - Review of Systems Constitutional: Weakness, Other (fatigue) Eyes: denies: No Symptoms Reported, See HPI, Pain, Vision Change, Conjunctivae Inflammation, Eyelid Inflammation, Redness, Other ENT: Nose Congestion Respiratory: Cough, Shortness of Breath, SOB with Excertion, Wheezing. denies: Hemoptysis, Sputum Cardiovascular: Chest Pain, Edema. denies: Light Headedness Gastrointestinal: Nausea Genitourinary: No Symptoms Reported. denies: See HPI, Dysuria, Frequency, Incontinence, Hematuria, Retention, Other Musculoskeletal: No Symptoms Reported. denies: See HPI, Shoulder Pain, Arm Pain , Back Pain, Hand Pain, Leg Pain, Foot Pain, Neck Pain, Other Skin: No Symptoms Reported. denies: See HPI, Rash, Lesions, Jaundice, Bruising , Wound, Ecchymosis, Other Neurological: Weakness - Physical Exam Vital Signs: Temperature 98.4 F Pulse Rate [Left] 75 Pulse Rate 18 Respiratory Rate 20 Blood Pressure [Left Arm] 143/77 Blood Pressure [Right Arm] 129/66 Blood Pressure 142/70 O2 Sat by Pulse Oximetry 98 Oriented: Normal Eyes: Normal. negative: Blurred Vision, Diplopia, Discharge, Pain, Redness, Photophobia, Other Ear: Normal. negative: Right, Left, Swelling, Ecchymosis, Hemotypanum, Abrasion , Laceration Nose: Other (nasal congestion ) Throat: Normal. negative: Tonsillar Hypertrophy, Red, Exudate, Dry, Other Respiratory: Rhonchi Throughout, Wheezes Throughout Cardiovascular: Edema (trace edema bilateral lower extremities ) : Normal. negative: Dysuria, Hematuria, Frequency, Discharge, Testicular Pain , Bleeding, , Other Auscultation: Bowel Sounds: Normal. negative: Bruit, Absent, Increased, Decreased, High Pitched, Other Palpation: Normal. negative: Spleen Enlarged, Liver Enlarged, Mass Pulsatile, Other Tenderness: Normal Skin: Normal Musculoskeletal: Motor Deficit, Instability Psychiatric: Normal Mood Description: Calm Affect: Normal Speech Pattern: Unclear (dysarthria from CVA) - Assessment/Plan (1) Bronchopneumonia Status: Acute Plan: levaquin 750mg iv daily, mucinex po q12h, mucomyst to neb tx, tessalon perles po tid, smartvest, continue to monitor (2) COPD exacerbation Status: Acute Plan: duonebs, mucomyst to neb tx, supplemental oxygen, continue to monitor
[2017-03-09] MEDS: LEVAQUIN PREMIX IV 750 MG 750 MG/150 ML BAG IV SCH (14:33)
[2017-03-09] MEDS: TESSALON PERLES PO SCH ×2 (14:34→21:20)
[2017-03-09] MEDS: VALPROIC ACID PO SCH ×4 (14:34→21:30)
[2017-03-09] MEDS: MUCINEX DM PO SCH ×2 (14:34→21:20)
[2017-03-09] MEDS: DUONEB 0.5 MG/3 MG NEB SCH ×3 (14:35→21:15)
[2017-03-09] MEDS ORDERED: BUTT CREAM (COMPOUND) TOP PRN (15:19)
[2017-03-09] MEDS ORDERED: ARICEPT TAB 10 MG PO SCH (21:00)
[2017-03-09] MEDS ORDERED: NAMENDA TAB 10 MG PO SCH (21:00)
[2017-03-09] MEDS: MUCOMYST 20% 200 MG/ML NEB SCH (21:16)
[2017-03-09] MEDS: GEODON PO SCH (21:21)
[2017-03-10] MEDS: TESSALON PERLES PO SCH ×2 (05:31→13:14)
[2017-03-10] MEDS: NS 1000 ML 1,000 ML IV SCH ×3 (05:31→15:23)
[2017-03-10] MEDS: VALPROIC ACID PO SCH ×2 (05:32→13:15)
[2017-03-10 06:16] LABS: BASOPHILS % (AUTO) 0.5 % (0.2-1.0); EOSINOPHILS # (AUTO) 0.1 x10^3/uL (0.0-0.2); EOSINOPHILS % (AUTO) 1.3 % (0.9-2.9); HEMATOCRIT 29.9 % (42.0-54.0); HEMOGLOBIN 9.9 g/dL (13.5-18.0); LYMPHOCYTES # (AUTO) 2.3 X10^3/uL (1.3-2.9); LYMPHOCYTES % (AUTO) 36.9 % (21.0-51.0); MEAN CORPUSCULAR HEMOGLOBIN 26.6 pg (27.0-34.0); MEAN CORPUSCULAR HGB CONC 33.1 g/dL (33.0-35.0); MEAN CORPUSCULAR VOLUME 80.5 fL (80.0-100.0); MEAN PLATELET VOLUME 7.8 fL (7.4-11.0); MONOCYTES # (AUTO) 0.8 x10^3/uL (0.3-0.8); MONOCYTES % (AUTO) 12.5 % (0.0-13.0); NEUTROPHILS # (AUTO) 3.1 x10^3/uL (2.2-4.8); NEUTROPHILS % (AUTO) 48.8 % (42.0-75.0); PLATELET COUNT 139 X10^3/uL (150.0-450.0); RED BLOOD COUNT 3.71 X10^6/uL (4.7-6.0); RED CELL DISTRIBUTION WIDTH 16.4 % (11.6-16.5); WHITE BLOOD COUNT 6.3 X10^3/uL (3.6-10.0)
[2017-03-10 06:38] LABS: ALANINE AMINOTRANSFERASE 12 Units/L (12-78); ALBUMIN 2.6 g/dL (3.4-5.0); ALKALINE PHOSPHATASE 44 Units/L (46-116); ASPARTATE AMINO TRANSFERASE 9 Units/L (15-37); BLOOD UREA NITROGEN 11 mg/dL (7-18); CALCIUM 8.9 mg/dL (8.5-10.1); CHLORIDE 109 mmol/L (98-107); CREATININE 1.07 mg/dL (0.70-1.30); SODIUM 143 mmol/L (136-145); TOTAL PROTEIN 6.4 g/dL (6.4-8.2); eGFR BLACK RACES > 60 (>60); eGFR NON BLACK RACES > 60 (>60)
--- NOTE | 2017-03-10 07:28 | RAD ---
HISTORY: Shortness of breath Study: Single-view chest Comparison: 03/08/2017. Findings: Cardiac monitoring electrodes are noted on the chest. Trachea is midline. Heart size is upper normal with aortic uncoiling. Lungs and pleural spaces are clear. Osseous structures are intact. IMPRESSION: Hypertensive configuration without acute cardiopulmonary disease. Reported By:
[2017-03-10 07:46] VITALS: BMI 29.2
[2017-03-10] MEDS: MUCOMYST 20% 200 MG/ML NEB SCH (09:13)
[2017-03-10] MEDS: DUONEB 0.5 MG/3 MG NEB SCH ×3 (09:13→16:34)
[2017-03-10] MEDS: LEVAQUIN PREMIX IV 750 MG 750 MG/150 ML BAG IV SCH (09:26)
[2017-03-10] MEDS: ELIQUIS PO SCH (09:28)
[2017-03-10] MEDS: LASIX PO SCH (09:28)
[2017-03-10] MEDS: ZANTAC PO SCH (09:28)
[2017-03-10] MEDS: EFFEXOR XR 150 MG CAP PO SCH (09:28)
[2017-03-10] MEDS: SINGULAIR TAB 10 MG PO SCH (09:28)
[2017-03-10] MEDS: MUCINEX DM PO SCH (09:29)
[2017-03-10] MEDS: GEODON PO SCH (09:29)
[2017-03-10] MEDS: NAMENDA TAB 10 MG PO SCH (09:29)
[2017-03-10] MEDS: LOPRESSOR TAB 25 MG PO SCH (09:38)
[2017-03-10 17:09] VITALS: BP 107/57
== END 2017-03-10 17:40 | disposition home or self-care (01) | DRG 190 ==
LOC: ER 17:51 → OBS 20:54 → ICU 20:54 → MED/SURG 03-09 15:38
PROVIDERS: ADMIT Obstetrics & Gynecology Obstetrics; ATTEND Internal Medicine
DX: J44.1 Chronic obstructive pulmonary disease with (acute) exacerbation (principal); J18.0 Bronchopneumonia, unspecified organism; R06.02 Shortness of breath; R07.89 Other chest pain; Z99.81 Dependence on supplemental oxygen; R53.1 Weakness; R94.31 Abnormal electrocardiogram [ECG] [EKG]; K21.9 Gastro-esophageal reflux disease without esophagitis; I10 Essential (primary) hypertension; R26.89 Other abnormalities of gait and mobility
CPT/HCPCS: 36415; 36600; 70450; 71045; 80053; 81001; 82533; 82550; 82553; 82803; 83735; 83880; 84484; 85025; 87040; 93005; 94640; 94669; 94760; 96365; 96374; 96375; 99284; A4216; A4222; G8978; G8979; G0378; J0696; J1956; J2930; J7608; J7620

== ENCOUNTER 2017-03-29 11:50 | Inpatient (IN) | payer OTHER ==
[2017-03-29 14:53] LABS: BASOPHILS % (AUTO) 0.7 % (0.2-1.0); EOSINOPHILS # (AUTO) 0.3 x10^3/uL (0.0-0.2); EOSINOPHILS % (AUTO) 4.4 % (0.9-2.9); HEMATOCRIT 32.1 % (42.0-54.0); HEMOGLOBIN 10.6 g/dL (13.5-18.0); LYMPHOCYTES # (AUTO) 2.5 X10^3/uL (1.3-2.9); LYMPHOCYTES % (AUTO) 43.1 % (21.0-51.0); MEAN CORPUSCULAR HEMOGLOBIN 26.5 pg (27.0-34.0); MEAN CORPUSCULAR HGB CONC 33.1 g/dL (33.0-35.0); MEAN PLATELET VOLUME 7.5 fL (7.4-11.0); MONOCYTES # (AUTO) 0.5 x10^3/uL (0.3-0.8); MONOCYTES % (AUTO) 9.1 % (0.0-13.0); NEUTROPHILS # (AUTO) 2.5 x10^3/uL (2.2-4.8); NEUTROPHILS % (AUTO) 42.7 % (42.0-75.0); PLATELET COUNT 166 X10^3/uL (150.0-450.0); RED BLOOD COUNT 4.01 X10^6/uL (4.7-6.0); WHITE BLOOD COUNT 5.8 X10^3/uL (3.6-10.0)
[2017-03-29 15:02] LABS: ALANINE AMINOTRANSFERASE 12 Units/L (12-78); ALBUMIN 2.9 g/dL (3.4-5.0); ALKALINE PHOSPHATASE 58 Units/L (46-116); ASPARTATE AMINO TRANSFERASE 14 Units/L (15-37); BLOOD UREA NITROGEN 12 mg/dL (7-18); CALCIUM 8.9 mg/dL (8.5-10.1); CARBON DIOXIDE 29.8 mmol/L (21-32); CHLORIDE 104 mmol/L (98-107); COR CA(FOR HYPOALB) 9.8 mg/dL (8.5-10.1); SODIUM 138 mmol/L (136-145); TOTAL PROTEIN 6.9 g/dL (6.4-8.2); eGFR BLACK RACES > 60 (>60); eGFR NON BLACK RACES > 60 (>60)
[2017-03-29] MEDS: NS 1000 ML 1,000 ML IV SCH (15:16)
--- NOTE | 2017-03-29 15:22 | RAD ---
Examination: Chest x-ray. Clinical History: Shortness of breath, weakness. Technique: A single portable AP view of the chest was obtained. Comparison: 03/10/2017. Findings: The lungs are hypoventilated, precluding evaluation of the heart size. The thoracic aorta is tortuous . No pneumothorax or pleural effusion is noted. No pulmonary opacity is noted. No acute osseous abnormality is noted. Impression: 1. Hypoventilated lungs. Reported By:
[2017-03-29 19:25] LABS: BILIRUBIN,URINE NEGATIVE (NEGATIVE); BLOOD/HEMOGLOBIN,URINE NEGATIVE (NEGATIVE); GLUCOSE, URINE NEGATIVE (NEGATIVE); KETONES,URINE NEGATIVE (NEGATIVE); LEUKOCYTE ESTERASE ,URINE NEGATIVE (NEGATIVE); NITRITES,URINE NEGATIVE (NEGATIVE); PROTEIN,URINE NEGATIVE (NEGATIVE); UROBILINOGEN,URINE NORMAL (NORMAL)
[2017-03-29 19:31] LABS: APPEARANCE,URINE CLEAR (CLEAR); BACTERIA,URINE TRACE /HPF (NEGATIVE); COLOR,URINE PALE YELLOW (YELLOW); RBC,URINE 0-1 /HPF (NEGATIVE); SQUAMOUS EPITHELIAL CELL,UR FEW /HPF (NEGATIVE)
[2017-03-29] MEDS ORDERED: ZIPRASIDONE HCL 40 MG PO SCH (21:00)
[2017-03-29] MEDS ORDERED: QUETIAPINE FUMARATE 50 MG PO SCH (21:00)
[2017-03-29] MEDS: ELIQUIS PO SCH (21:29)
[2017-03-29] MEDS: ARICEPT TAB 10 MG PO SCH (21:29)
[2017-03-29] MEDS: LOPRESSOR TAB 25 MG PO SCH (21:30)
[2017-03-29] MEDS: NAMENDA TAB 10 MG PO SCH (21:30)
[2017-03-29] MEDS: GEODON PO SCH (21:30)
[2017-03-29] MEDS: SEROquel TAB 100 MG PO SCH (21:30)
[2017-03-29] MEDS: LASIX PO SCH (21:30)
[2017-03-29] MEDS: ZANTAC PO SCH (21:32)
[2017-03-29] MEDS: VALPROIC ACID PO SCH (21:33)
[2017-03-30] MEDS: VALPROIC ACID PO SCH ×3 (05:28→21:21)
[2017-03-30 05:49] LABS: BASOPHILS % (AUTO) 0.6 % (0.2-1.0); EOSINOPHILS # (AUTO) 0.2 x10^3/uL (0.0-0.2); EOSINOPHILS % (AUTO) 5.2 % (0.9-2.9); HEMATOCRIT 34.1 % (42.0-54.0); HEMOGLOBIN 11.4 g/dL (13.5-18.0); LYMPHOCYTES # (AUTO) 1.7 X10^3/uL (1.3-2.9); LYMPHOCYTES % (AUTO) 37.5 % (21.0-51.0); MEAN CORPUSCULAR HEMOGLOBIN 26.5 pg (27.0-34.0); MEAN CORPUSCULAR HGB CONC 33.5 g/dL (33.0-35.0); MEAN CORPUSCULAR VOLUME 79.3 fL (80.0-100.0); MEAN PLATELET VOLUME 7.7 fL (7.4-11.0); MONOCYTES # (AUTO) 0.6 x10^3/uL (0.3-0.8); MONOCYTES % (AUTO) 12.5 % (0.0-13.0); NEUTROPHILS % (AUTO) 44.2 % (42.0-75.0); PLATELET COUNT 151 X10^3/uL (150.0-450.0); RED CELL DISTRIBUTION WIDTH 16.1 % (11.6-16.5); WHITE BLOOD COUNT 4.5 X10^3/uL (3.6-10.0)
[2017-03-30] MEDS: NS 1000 ML 1,000 ML IV SCH ×3 (05:50→17:07)
[2017-03-30 05:57] LABS: ALANINE AMINOTRANSFERASE 10 Units/L (12-78); ALBUMIN 2.9 g/dL (3.4-5.0); ALKALINE PHOSPHATASE 57 Units/L (46-116); ASPARTATE AMINO TRANSFERASE 14 Units/L (15-37); BLOOD UREA NITROGEN 8 mg/dL (7-18); CALCIUM 9.3 mg/dL (8.5-10.1); CARBON DIOXIDE 31.7 mmol/L (21-32); CHLORIDE 105 mmol/L (98-107); COR CA(FOR HYPOALB) 10.2 mg/dL (8.5-10.1); CREATININE 1.09 mg/dL (0.70-1.30); SODIUM 142 mmol/L (136-145); TOTAL PROTEIN 7.1 g/dL (6.4-8.2); eGFR BLACK RACES > 60 (>60); eGFR NON BLACK RACES > 60 (>60)
[2017-03-30 07:48] VITALS: BMI 24.9
[2017-03-30] MEDS: ZANTAC PO SCH ×2 (08:53→21:21)
[2017-03-30] MEDS: NAMENDA TAB 10 MG PO SCH ×2 (08:54→22:56)
[2017-03-30] MEDS: ELIQUIS PO SCH ×2 (08:54→21:18)
[2017-03-30] MEDS: SINGULAIR TAB 10 MG PO SCH (08:54)
[2017-03-30] MEDS: LOPRESSOR TAB 25 MG PO SCH ×2 (08:54→21:19)
[2017-03-30] MEDS: SEROquel TAB 100 MG PO SCH ×2 (08:54→21:20)
[2017-03-30] MEDS: LASIX PO SCH ×2 (08:54→21:19)
[2017-03-30] MEDS: GEODON PO SCH ×2 (08:58→21:18)
[2017-03-30] MEDS ORDERED: EFFEXOR XR 150 MG CAP PO SCH (09:00)
[2017-03-30] MEDS: ROCEPHIN VIAL 1 GM 1 GM in NS 100 ML IV + SPIKE MINIBAG* 100 ML IV SCH (11:03)
--- NOTE | 2017-03-30 11:04 | DR.H&P ---
H&P - History & Physical for Day of: H&P Date: 03/29/17 - Chief Complaint Chief Complaint: AMS, SHORT OF BREATH, GENERALIZED WEAKNESS - Allergies Allergies/Adverse Reactions: Allergies Allergy/AdvReac Type Severity Reaction Status Date / Time No Known Drug Allergies Allergy Verified 09/09/16 12:13 - History of Present Illness History of Present Illness: IS A 71 YEAR OLD PATIENT OF OURS WHO PRESENTED TO THE OFFICE WITH ALTERED MENTAL STATUS, GENERALIZED WEAKNESS, AND SHORTNESS OF BREATH. PATIENTS SON REPORTED THAT SYMPTOMS BEGAN TWO DAYS AGO. HE ALSO REPORTS THAT PATIENT HAS BEEN NOTED WITH AN INTERMITTENT, NON- PRODUCTIVE COUGH AND THAT URINE HAS A STRONG, FOUL ODOR AND IS DARK IN COLOR. ON EXAMINATION, HEART IS REGULAR IN RATE AND RHYTHM. BILATERAL LUNGS ARE NOTED WITH DIMINISHED BREATH SOUNDS THROUGHOUT. ABDOMEN IS ROUND, SOFT, AND NOTED WITH SUPRAPUBIC TENDERNESS ON PALPATION. THERE IS WEAKNESS NOTED TO BILATERAL LOWER EXTREMITIES. MEDICAL HISTORY INCLUDES CVA, HTN, PNEUMONIA, COPD, PROSTATE CANCER, DEPRESSION, CHOLECYSTECTOMY, HERNIA REPAIR, LEFT KNEE SURGERY, AND RIGHT SHOULDER SURGERY. WE ADMITTED PATIENT FOR FURTHER EVALUATION AND TREATMENT. ON ADMISSION, WE WILL OBTAIN LABS AND A CHEST XRAY. WE WILL ALSO ORDER FOR PHYSICAL THERAPY AND OCCUPATIONAL THERAPY TO EVALUATE PATIENT. HE WILL BE STARTED ON NORMAL SALINE AT 50ML/HR AND ROCEPHIN 1GM IV DAILY. ON ADMISSION, VITALS WERE 98.0-83-16-95%-112/67. LABS WERE OBTAINED. ABNORMAL LAB VALUES INCLUDE THE FOLLOWING: RBC 4.01, HGB 10.6, HCT 32.1, AST 14, ALBUMIN 2.9. A CHEST XRAY WAS OBTAINED AND REPORTED HYPOVENTILATED LUNGS. A PRO CATHETER WAS INSERTED DUE TO ACUTE URINARY RETENTION. A URINE SAMPLE WAS SENT TO LAB AND RESULTS ARE PENDING. WE PLAN TO FOLLOW UP WITH AM LABS AND CONTINUE TO MONITOR PATIENT. - Past Medical History Past Medical History: COPD, CVA, GERD, Hypertension Additional Medical History: Prostate Cancer, Chronic Cholelithiasis - Past Surgical History Surgical History: Cholecystectomy, Ortho Surgery Additional Surgical History: Prostatectomy, Hiatal Hernia Repair, Left Knee - Family History Family Medical History: Cancer - Social History Does patient currently use any type of tobacco product: No Have you used tobacco products in the last 12 months: No Type of Tobacco Use: None Does any household member use tobacco: No Alcohol Use: None Drug Use: None - Review of Systems Constitutional: Weakness Eyes: No Symptoms Reported. denies: See HPI, Pain, Vision Change, Conjunctivae Inflammation, Eyelid Inflammation, Redness, Other ENT: No Symptoms Reported. denies: See HPI, Ear Pain, Ear Discharge, Nose Pain , Nose Discharge, Nose Congestion, Mouth Pain, Mouth Swelling, Throat Pain, Throat Swelling, Other Respiratory: Cough, Shortness of Breath Cardiovascular: No Symptoms Reported. denies: Chest Pain, See HPI, Palpitations , Orthopnea, Paroxysmal Noc. Dyspnea, Edema, Light Headedness, Other Gastrointestinal: Abdominal Pain Genitourinary: No Symptoms Reported Musculoskeletal: No Symptoms Reported Skin: No Symptoms Reported Neurological: Weakness, Confusion - Physical Exam Vital Signs: Temperature 97.4 F Pulse Rate [Right Brachial] 48 Respiratory Rate 17 Blood Pressure [Left Arm] 118/69 Blood Pressure [Right Arm] 129/66 Blood Pressure 107/57 O2 Sat by Pulse Oximetry 100 Oriented: Person Eyes: Normal. negative: Blurred Vision, Diplopia, Discharge, Pain, Redness, Photophobia, Other Ear: Normal. negative: Right, Left, Swelling, Ecchymosis, Hemotypanum, Abrasion , Laceration Nose: Normal Throat: Normal Respiratory: Diminished Throughout Cardiovascular: Normal : Normal Auscultation: Bowel Sounds: Normal Palpation: Normal Tenderness: Suprapubic. negative: Rebound, Guarding, Rigidity Skin: Decreased Turgur Musculoskeletal: Motor Deficit, Instability Psychiatric: Other (ACUTE CONFUSION, AMS ) Mood Description: Calm Affect: Normal Speech Pattern: Unclear
--- NOTE | 2017-03-30 21:04 | PCM.PROG ---
Progress Note - Progress Note for Day of Date: 03/30/17 - Subjective Subjective: WAS ADMITTED FOR ALTERED MENTAL STATUS, GENERALIZED WEAKNESS, AND SHORTNESS OF BREATH. TODAY, HE IS LYING IN BED WITH EYES CLOSED ON MORNING ROUNDS. HE AWAKENS TO VERBAL STIMULI. HE CONTINUES WITH GENERALIZED WEAKNESS, SHORTNESS OF BREATH, AND A NON-PRODUCTIVE COUGH. ON EXAMINATION, HEART IS REGULAR IN RATE AND RHYTHM. BILATERAL LUNGS ARE NOTED WITH EXPIRATORY WHEEZING. HE IS CURRENTLY UTILIZING OXYGEN VIA NASAL CANNULA. ABDOMEN IS ROUND, SOFT, AND CONTINUES WITH SUPRAPUBIC TENDERNESS ON EXAMINATION. A PRO CATHETER IS NOTED TO BEDSIDE DRAINAGE. URINE IS NOTED TO BE STRAW COLORED WITH PUS AND SEDIMENT IN BAG. THERE IS WEAKNESS NOTED TO ALL EXTREMITIES. HIS VITALS THIS MORNING ARE 97.4-54-18-100%-124/56. LABS WERE OBTAINED. ABNORMAL LAB VALUES INCLUDE THE FOLLOWING: RBC 4.30, HGB 11.4, HCT 34.1, CORRECTED CALCIUM 10.2, AST 14, ALT 10, ALBUMIN 2.9. TODAY, WE WILL START ROCEPHIN 1GM IV DAILY FOR TREATMENT OF ACUTE BRONCHITIS AND A URINARY TRACT INFECTION. OTHERWISE, WE WILL CONTINUE WITH CURRENT PLAN OF CARE AND PHYSICAL THERAPY. WE WILL FOLLOW UP WITH AM LABS AND CONTINUE TO MONITOR PATIENT. - Past Medical Family Social History Past Med/Fam/Surg Hx: No changes since H&P Allergies: Allergies No Known Drug Allergies Allergy (Verified 09/09/16 12:13) - Review of Systems ROS: No change since H&P - Vital Signs and I&O's Vital Signs: Temperature 97.8 F Pulse Rate [Left Brachial] 57 Pulse Rate [Right Brachial] 56 Respiratory Rate 18 Blood Pressure [Left Arm] 112/64 Blood Pressure [Right Arm] 129/66 Blood Pressure 107/57 O2 Sat by Pulse Oximetry 100 Intake and Output: Intake & Output 03/28/17 03/29/17 03/30/17 03/31/17 11:59 11:59 11:59 11:59 Intake Total 400 1350 Output Total 2400 800 Balance -2000 550 - Physical Exam Oriented: Person Eyes: Normal. negative: Blurred Vision, Diplopia, Discharge, Pain, Redness, Photophobia, Other Ear: Normal. negative: Right, Left, Swelling, Ecchymosis, Hemotypanum, Abrasion , Laceration Nose: Normal Throat: Normal Respiratory: Right, Left, Generalized, Wheezes Cardiovascular: Normal : Normal Auscultation: Bowel Sounds: Normal Palpation: Normal Tenderness: Suprapubic. negative: Rebound, Guarding, Rigidity Skin: Decreased Turgur Musculoskeletal: Motor Deficit, Instability Psychiatric: Other (ACUTE CONFUSION, AMS ) Mood Description: Calm Affect: Normal Speech Pattern: Unclear - Laboratory and Diagnostics Result Diagrams: 03/30/17 05:06 03/30/17 05:06 Labs: Laboratory WBC 4.5 X10^3/uL (3.6-10.0) 03/30/17 05:06 RBC 4.30 X10^6/uL (4.7-6.0) L 03/30/17 05:06 Hgb 11.4 g/dL (13.5-18.0) L 03/30/17 05:06 Hct 34.1 % (42.0-54.0) L 03/30/17 05:06 MCV 79.3 fL (80.0-100.0) L 03/30/17 05:06 MCH 26.5 pg (27.0-34.0) L 03/30/17 05:06 MCHC 33.5 g/dL (33.0-35.0) 03/30/17 05:06 RDW 16.1 % (11.6-16.5) 03/30/17 05:06 Plt Count 151 X10^3/uL (150.0-450.0) 03/30/17 05:06 MPV 7.7 fL (7.4-11.0) 03/30/17 05:06 Neut % 44.2 % (42.0-75.0) 03/30/17 05:06 Lymph % 37.5 % (21.0-51.0) 03/30/17 05:06 [place] % 12.5 % (0.0-13.0) 03/30/17 05:06 Eos % 5.2 % (0.9-2.9) H 03/30/17 05:06 Baso % 0.6 % (0.2-1.0) 03/30/17 05:06 Neut # 2.0 x10^3/uL (2.2-4.8) L 03/30/17 05:06 Lymph # 1.7 X10^3/uL (1.3-2.9) 03/30/17 05:06 [place] # 0.6 x10^3/uL (0.3-0.8) 03/30/17 05:06 Eos # 0.2 x10^3/uL (0.0-0.2) 03/30/17 05:06 Baso # 0.0 X10^3/uL (0.0-0.1) 03/30/17 05:06 Absolute Nucleated RBC 0.0 /100WBC 03/30/17 05:06 Sodium 142 mmol/L (136-145) 03/30/17 05:06 Corrected Sodium TNP 03/30/17 05:06 Potassium 4.0 mmol/L (3.5-5.1) 03/30/17 05:06 Chloride 105 mmol/L (98-107) 03/30/17 05:06 Carbon Dioxide 31.7 mmol/L (21-32) 03/30/17 05:06 BUN 8 mg/dL (7-18) 03/30/17 05:06 Creatinine 1.09 mg/dL (0.70-1.30) 03/30/17 05:06 Est GFR (MDRD) Af Amer > 60 (>60) 03/30/17 05:06 Est GFR (MDRD) Non-Af > 60 (>60) 03/30/17 05:06 Glucose 74 mg/dL (65-99) 03/30/17 05:06 Calcium 9.3 mg/dL (8.5-10.1) 03/30/17 05:06 Corrected Calcium 10.2 mg/dL (8.5-10.1) H 03/30/17 05:06 Total Bilirubin 0.50 mg/dL (0.2-1.0) 03/30/17 05:06 AST 14 Units/L (15-37) L 03/30/17 05:06 ALT 10 Units/L (12-78) L 03/30/17 05:06 Alkaline Phosphatase 57 Units/L (46-116) 03/30/17 05:06 Total Protein 7.1 g/dL (6.4-8.2) 03/30/17 05:06 Albumin 2.9 g/dL (3.4-5.0) L 03/30/17 05:06 Globulin 4.2 g/dL (2.5-4.5) 03/30/17 05:06 Albumin/Globulin Ratio 0.7 Ratio (1.1-2.1) L 03/30/17 05:06 Specimen Type Catherized urine 03/29/17 19:17 Urine Color Pale yellow (YELLOW) 03/29/17 19:17 Urine Appearance Clear (CLEAR) 03/29/17 19:17 Urine pH 7.0 (5.0 - 8.0) 03/29/17 19:17 Ur Specific [place] 1.010 (1.000-1.030) 03/29/17 19:17 Urine Protein Negative (NEGATIVE) 03/29/17 19:17 Urine Glucose (UA) Negative (NEGATIVE) 03/29/17 19:17 Urine Ketones Negative (NEGATIVE) 03/29/17 19:17 Urine Occult Blood Negative (NEGATIVE) 03/29/17 19:17 Urine Nitrite Negative (NEGATIVE) 03/29/17 19:17 Urine Bilirubin Negative (NEGATIVE) 03/29/17 19:17 Urine Urobilinogen Normal (NORMAL) 03/29/17 19:17 Ur Leukocyte Esterase Negative (NEGATIVE) 03/29/17 19:17 Urine RBC 0-1 /HPF (NEGATIVE) 03/29/17 19:17 Urine WBC 0-1 /HPF (NEGATIVE) 03/29/17 19:17 Ur Squamous Epith Cells Few /HPF (NEGATIVE) 03/29/17 19:17 Urine Bacteria Trace /HPF (NEGATIVE) 03/29/17 19:17 Ur Culture Indicated? No/not indicated 03/29/17 19:17 - Plan (1) Bronchitis Status: Acute Plan: ROCEPHIN 1GM IV DAILY, CONTINUE IV FLUIDS, CONTINUE TO MONITOR (2) Urinary tract infection Status: Acute Qualifiers: Urinary tract infection type: acute cystitis Hematuria presence: without hematuria Qualified Code(s): N30.00 - Acute cystitis without hematuria Plan: ROCEPHIN 1GM IV DAILY, CONTINUE IV FLUIDS, CONTINUE TO MONITOR (3) Generalized weakness Status: Acute Plan: CONTINUE IV FLUIDS, CONTINUE PHYSICAL THERAPY
[2017-03-30] MEDS: ARICEPT TAB 10 MG PO SCH (21:19)
[2017-03-31] MEDS: VALPROIC ACID PO SCH ×3 (05:12→20:59)
[2017-03-31] MEDS: NS 1000 ML 1,000 ML IV SCH ×2 (05:56→20:56)
[2017-03-31 06:26] LABS: BASOPHILS % (AUTO) 0.5 % (0.2-1.0); EOSINOPHILS # (AUTO) 0.3 x10^3/uL (0.0-0.2); EOSINOPHILS % (AUTO) 4.6 % (0.9-2.9); HEMATOCRIT 34.1 % (42.0-54.0); HEMOGLOBIN 11.3 g/dL (13.5-18.0); LYMPHOCYTES % (AUTO) 41.3 % (21.0-51.0); MEAN CORPUSCULAR HEMOGLOBIN 26.5 pg (27.0-34.0); MEAN CORPUSCULAR HGB CONC 33.1 g/dL (33.0-35.0); MEAN CORPUSCULAR VOLUME 79.8 fL (80.0-100.0); MONOCYTES # (AUTO) 0.8 x10^3/uL (0.3-0.8); NEUTROPHILS # (AUTO) 3.1 x10^3/uL (2.2-4.8); NEUTROPHILS % (AUTO) 42.6 % (42.0-75.0); PLATELET COUNT 154 X10^3/uL (150.0-450.0); RED BLOOD COUNT 4.27 X10^6/uL (4.7-6.0); RED CELL DISTRIBUTION WIDTH 15.7 % (11.6-16.5); WHITE BLOOD COUNT 7.3 X10^3/uL (3.6-10.0)
[2017-03-31 06:32] LABS: ALANINE AMINOTRANSFERASE 8 Units/L (12-78); ALBUMIN 2.8 g/dL (3.4-5.0); ALKALINE PHOSPHATASE 57 Units/L (46-116); ASPARTATE AMINO TRANSFERASE 15 Units/L (15-37); BLOOD UREA NITROGEN 8 mg/dL (7-18); CALCIUM 9.1 mg/dL (8.5-10.1); CARBON DIOXIDE 31.3 mmol/L (21-32); CHLORIDE 105 mmol/L (98-107); COR CA(FOR HYPOALB) 10.1 mg/dL (8.5-10.1); CREATININE 1.13 mg/dL (0.70-1.30); SODIUM 141 mmol/L (136-145); eGFR BLACK RACES > 60 (>60); eGFR NON BLACK RACES > 60 (>60)
[2017-03-31] MEDS: ELIQUIS PO SCH ×2 (09:18→20:58)
[2017-03-31] MEDS: SINGULAIR TAB 10 MG PO SCH (09:18)
[2017-03-31] MEDS: NAMENDA TAB 10 MG PO SCH ×2 (09:18→20:59)
[2017-03-31] MEDS: ZANTAC PO SCH ×2 (09:18→20:59)
[2017-03-31] MEDS: LOPRESSOR TAB 25 MG PO SCH ×2 (09:18→20:59)
[2017-03-31] MEDS: SEROquel TAB 100 MG PO SCH ×2 (09:19→20:58)
[2017-03-31] MEDS: GEODON PO SCH ×2 (09:19→20:57)
[2017-03-31] MEDS: EFFEXOR TAB 75 MG (BID DOSING) PO SCH ×2 (09:19→20:58)
[2017-03-31] MEDS: LASIX PO SCH ×2 (09:19→20:58)
[2017-03-31] MEDS: ROCEPHIN VIAL 1 GM 1 GM in NS 100 ML IV + SPIKE MINIBAG* 100 ML IV SCH (09:20)
[2017-03-31] MEDS: ARICEPT TAB 10 MG PO SCH (20:58)
[2017-04-01] MEDS: VALPROIC ACID PO SCH ×3 (06:00→21:31)
[2017-04-01 06:21] LABS: BASOPHILS % (AUTO) 0.4 % (0.2-1.0); EOSINOPHILS # (AUTO) 0.2 x10^3/uL (0.0-0.2); EOSINOPHILS % (AUTO) 4.8 % (0.9-2.9); HEMATOCRIT 31.6 % (42.0-54.0); HEMOGLOBIN 10.6 g/dL (13.5-18.0); LYMPHOCYTES # (AUTO) 1.4 X10^3/uL (1.3-2.9); LYMPHOCYTES % (AUTO) 26.8 % (21.0-51.0); MEAN CORPUSCULAR HEMOGLOBIN 26.7 pg (27.0-34.0); MEAN CORPUSCULAR HGB CONC 33.5 g/dL (33.0-35.0); MEAN CORPUSCULAR VOLUME 79.7 fL (80.0-100.0); MEAN PLATELET VOLUME 8.3 fL (7.4-11.0); MONOCYTES # (AUTO) 0.5 x10^3/uL (0.3-0.8); MONOCYTES % (AUTO) 9.6 % (0.0-13.0); NEUTROPHILS % (AUTO) 58.4 % (42.0-75.0); PLATELET COUNT 151 X10^3/uL (150.0-450.0); RED BLOOD COUNT 3.96 X10^6/uL (4.7-6.0); RED CELL DISTRIBUTION WIDTH 16.1 % (11.6-16.5); WHITE BLOOD COUNT 5.2 X10^3/uL (3.6-10.0)
[2017-04-01 06:26] LABS: ALANINE AMINOTRANSFERASE 9 Units/L (12-78); ALBUMIN 2.7 g/dL (3.4-5.0); ALKALINE PHOSPHATASE 52 Units/L (46-116); ASPARTATE AMINO TRANSFERASE 12 Units/L (15-37); BLOOD UREA NITROGEN 9 mg/dL (7-18); CALCIUM 8.9 mg/dL (8.5-10.1); CARBON DIOXIDE 32.4 mmol/L (21-32); CHLORIDE 105 mmol/L (98-107); COR CA(FOR HYPOALB) 9.9 mg/dL (8.5-10.1); CREATININE 1.07 mg/dL (0.70-1.30); SODIUM 141 mmol/L (136-145); TOTAL PROTEIN 6.7 g/dL (6.4-8.2); eGFR BLACK RACES > 60 (>60); eGFR NON BLACK RACES > 60 (>60)
[2017-04-01] MEDS: LASIX PO SCH ×2 (09:02→21:30)
[2017-04-01] MEDS: ROCEPHIN VIAL 1 GM 1 GM in NS 100 ML IV + SPIKE MINIBAG* 100 ML IV SCH (09:02)
[2017-04-01] MEDS: SEROquel TAB 100 MG PO SCH ×2 (09:02→21:30)
[2017-04-01] MEDS: SINGULAIR TAB 10 MG PO SCH (09:03)
[2017-04-01] MEDS: GEODON PO SCH ×2 (09:03→21:31)
[2017-04-01] MEDS: EFFEXOR TAB 75 MG (BID DOSING) PO SCH ×2 (09:03→21:30)
[2017-04-01] MEDS: NAMENDA TAB 10 MG PO SCH ×2 (09:03→21:30)
[2017-04-01] MEDS: ELIQUIS PO SCH ×2 (09:03→21:31)
[2017-04-01] MEDS: ZANTAC PO SCH ×2 (09:03→21:30)
[2017-04-01] MEDS: LOPRESSOR TAB 25 MG PO SCH ×2 (09:03→21:31)
[2017-04-01] MEDS: NS 1000 ML 1,000 ML IV SCH ×2 (14:15→21:31)
[2017-04-01] MEDS: MILK OF MAGNESIA PO SCH ×2 (21:27→21:30)
[2017-04-01] MEDS: COLACE CAP 100 MG PO SCH (21:30)
[2017-04-01] MEDS: ARICEPT TAB 10 MG PO SCH (21:30)
[2017-04-02] MEDS: VALPROIC ACID PO SCH ×3 (05:39→21:36)
[2017-04-02 06:15] LABS: BASOPHILS % (AUTO) 0.6 % (0.2-1.0); EOSINOPHILS # (AUTO) 0.2 x10^3/uL (0.0-0.2); EOSINOPHILS % (AUTO) 4.2 % (0.9-2.9); HEMATOCRIT 29.7 % (42.0-54.0); LYMPHOCYTES # (AUTO) 1.7 X10^3/uL (1.3-2.9); LYMPHOCYTES % (AUTO) 34.1 % (21.0-51.0); MEAN CORPUSCULAR HEMOGLOBIN 26.8 pg (27.0-34.0); MEAN CORPUSCULAR HGB CONC 33.7 g/dL (33.0-35.0); MEAN CORPUSCULAR VOLUME 79.5 fL (80.0-100.0); MEAN PLATELET VOLUME 8.3 fL (7.4-11.0); MONOCYTES # (AUTO) 0.4 x10^3/uL (0.3-0.8); MONOCYTES % (AUTO) 9.2 % (0.0-13.0); NEUTROPHILS # (AUTO) 2.5 x10^3/uL (2.2-4.8); NEUTROPHILS % (AUTO) 51.9 % (42.0-75.0); PLATELET COUNT 143 X10^3/uL (150.0-450.0); RED BLOOD COUNT 3.73 X10^6/uL (4.7-6.0); RED CELL DISTRIBUTION WIDTH 16.2 % (11.6-16.5); WHITE BLOOD COUNT 4.9 X10^3/uL (3.6-10.0)
[2017-04-02 06:45] LABS: ALBUMIN 2.5 g/dL (3.4-5.0); ALKALINE PHOSPHATASE 46 Units/L (46-116); ASPARTATE AMINO TRANSFERASE 12 Units/L (15-37); BLOOD UREA NITROGEN 11 mg/dL (7-18); CALCIUM 8.7 mg/dL (8.5-10.1); CARBON DIOXIDE 32.8 mmol/L (21-32); CHLORIDE 105 mmol/L (98-107); COR CA(FOR HYPOALB) 9.9 mg/dL (8.5-10.1); CREATININE 0.96 mg/dL (0.70-1.30); SODIUM 141 mmol/L (136-145); TOTAL PROTEIN 6.3 g/dL (6.4-8.2); eGFR BLACK RACES > 60 (>60); eGFR NON BLACK RACES > 60 (>60)
[2017-04-02] MEDS: GEODON PO SCH ×2 (08:31→21:34)
[2017-04-02] MEDS: ROCEPHIN VIAL 1 GM 1 GM in NS 100 ML IV + SPIKE MINIBAG* 100 ML IV SCH (08:31)
[2017-04-02] MEDS: ELIQUIS PO SCH ×2 (08:31→21:35)
[2017-04-02] MEDS: MILK OF MAGNESIA PO SCH (08:31)
[2017-04-02] MEDS: LOPRESSOR TAB 25 MG PO SCH ×2 (08:31→21:36)
[2017-04-02] MEDS: ZANTAC PO SCH ×2 (08:31→21:34)
[2017-04-02] MEDS: LASIX PO SCH ×2 (08:31→21:35)
[2017-04-02] MEDS: SINGULAIR TAB 10 MG PO SCH (08:32)
[2017-04-02] MEDS: EFFEXOR TAB 75 MG (BID DOSING) PO SCH ×2 (08:32→21:35)
[2017-04-02] MEDS: NAMENDA TAB 10 MG PO SCH ×2 (08:32→21:35)
[2017-04-02] MEDS: SEROquel TAB 100 MG PO SCH ×2 (08:32→21:34)
[2017-04-02 08:59] LABS: ALANINE AMINOTRANSFERASE 10 Units/L (12-78)
[2017-04-02] MEDS ORDERED: MILK OF MAGNESIA PO PRN (17:19)
[2017-04-02] MEDS: NS 1000 ML 1,000 ML IV SCH (21:31)
[2017-04-02] MEDS: COLACE CAP 100 MG PO SCH (21:34)
[2017-04-02] MEDS: ARICEPT TAB 10 MG PO SCH (21:35)
[2017-04-03] MEDS: VALPROIC ACID PO SCH ×3 (05:59→21:45)
[2017-04-03 06:19] LABS: BASOPHILS % (AUTO) 0.8 % (0.2-1.0); EOSINOPHILS # (AUTO) 0.3 x10^3/uL (0.0-0.2); EOSINOPHILS % (AUTO) 5.8 % (0.9-2.9); HEMATOCRIT 31.7 % (42.0-54.0); HEMOGLOBIN 10.6 g/dL (13.5-18.0); LYMPHOCYTES # (AUTO) 2.2 X10^3/uL (1.3-2.9); LYMPHOCYTES % (AUTO) 41.4 % (21.0-51.0); MEAN CORPUSCULAR HEMOGLOBIN 26.6 pg (27.0-34.0); MEAN CORPUSCULAR HGB CONC 33.6 g/dL (33.0-35.0); MEAN CORPUSCULAR VOLUME 79.2 fL (80.0-100.0); MEAN PLATELET VOLUME 8.4 fL (7.4-11.0); MONOCYTES # (AUTO) 0.4 x10^3/uL (0.3-0.8); MONOCYTES % (AUTO) 8.4 % (0.0-13.0); NEUTROPHILS # (AUTO) 2.3 x10^3/uL (2.2-4.8); NEUTROPHILS % (AUTO) 43.6 % (42.0-75.0); PLATELET COUNT 130 X10^3/uL (150.0-450.0); WHITE BLOOD COUNT 5.3 X10^3/uL (3.6-10.0)
[2017-04-03 06:24] LABS: ALANINE AMINOTRANSFERASE 7 Units/L (12-78); ALBUMIN 2.6 g/dL (3.4-5.0); ALKALINE PHOSPHATASE 46 Units/L (46-116); ASPARTATE AMINO TRANSFERASE 14 Units/L (15-37); BLOOD UREA NITROGEN 15 mg/dL (7-18); CARBON DIOXIDE 30.9 mmol/L (21-32); CHLORIDE 107 mmol/L (98-107); COR CA(FOR HYPOALB) 10.1 mg/dL (8.5-10.1); CREATININE 1.02 mg/dL (0.70-1.30); SODIUM 141 mmol/L (136-145); TOTAL PROTEIN 6.6 g/dL (6.4-8.2); eGFR BLACK RACES > 60 (>60); eGFR NON BLACK RACES > 60 (>60)
[2017-04-03] MEDS ORDERED: NORCO 5/325 MG TAB ONE (09:25)
[2017-04-03] MEDS: ZANTAC PO SCH ×2 (09:52→21:45)
[2017-04-03] MEDS: ROCEPHIN VIAL 1 GM 1 GM in NS 100 ML IV + SPIKE MINIBAG* 100 ML IV SCH (09:52)
[2017-04-03] MEDS: EFFEXOR TAB 75 MG (BID DOSING) PO SCH ×2 (09:52→21:44)
[2017-04-03] MEDS: SINGULAIR TAB 10 MG PO SCH (09:52)
[2017-04-03] MEDS: SEROquel TAB 100 MG PO SCH ×2 (09:53→21:43)
[2017-04-03] MEDS: NAMENDA TAB 10 MG PO SCH ×2 (09:53→21:45)
[2017-04-03] MEDS: LASIX PO SCH ×2 (09:53→21:44)
[2017-04-03] MEDS: LOPRESSOR TAB 25 MG PO SCH (09:53)
[2017-04-03] MEDS: GEODON PO SCH ×2 (09:53→21:45)
[2017-04-03] MEDS: ELIQUIS PO SCH ×2 (09:53→21:44)
[2017-04-03] MEDS: NORCO 5/325 MG TAB PO PRN ×2 (09:54→17:26)
--- NOTE | 2017-04-03 11:42 | PCM.PROG ---
Progress Note - Progress Note for Day of Date: 03/31/17 - Subjective Subjective: WAS ADMITTED FOR ALTERED MENTAL STATUS, GENERALIZED WEAKNESS, AND SHORTNESS OF BREATH. TODAY, HE IS LYING IN BED WITH EYES CLOSED ON MORNING ROUNDS. HE AWAKENS TO VERBAL STIMULI. HE CONTINUES WITH GENERALIZED WEAKNESS, SHORTNESS OF BREATH, AND A NON-PRODUCTIVE COUGH. ON EXAMINATION, HEART IS REGULAR IN RATE AND RHYTHM. BILATERAL LUNGS CONTINUE WITH EXPIRATORY WHEEZING. HE IS CURRENTLY UTILIZING OXYGEN VIA NASAL CANNULA. ABDOMEN IS ROUND, SOFT, AND CONTINUES WITH SUPRAPUBIC TENDERNESS ON EXAMINATION. A PRO CATHETER IS NOTED TO BEDSIDE DRAINAGE. URINE CONTINUE TO BE STRAW COLORED WITH SEDIMENT IN BAG. THERE IS WEAKNESS NOTED TO ALL EXTREMITIES. HIS VITALS THIS MORNING ARE 98.8-52-20-98%-128/68. LABS WERE OBTAINED. ABNORMAL LAB VALUES INCLUDE THE FOLLOWING: RBC 4.27, HGB 11.3, HCT 34.1, ALT 8, ALBUMIN 2.8. TODAY, WE WILL CONTINUE WITH CURRENT PLAN OF CARE. OTHERWISE, WE PLAN TO FOLLOW UP WITH AM LABS AND CONTINUE TO MONITOR PATIENT. - Past Medical Family Social History Past Med/Fam/Surg Hx: No changes since H&P Allergies: Allergies No Known Drug Allergies Allergy (Verified 09/09/16 12:13) - Review of Systems ROS: No change since H&P - Vital Signs and I&O's Vital Signs: Temperature 96.5 F Pulse Rate [Left Brachial] 73 Pulse Rate [Right Brachial] 49 Respiratory Rate 18 Blood Pressure [Left Arm] 141/63 Blood Pressure [Right Arm] 116/58 Blood Pressure 107/57 O2 Sat by Pulse Oximetry 93 Intake and Output: Intake & Output 03/31/17 04/01/17 04/02/17 04/03/17 11:59 11:59 11:59 11:59 Intake Total 2915 1505 2080 1221 Output Total 2375 2050 1500 Balance 540 -564 218 7636 - Physical Exam Oriented: Person Eyes: Normal. negative: Blurred Vision, Diplopia, Discharge, Pain, Redness, Photophobia, Other Ear: Normal. negative: Right, Left, Swelling, Ecchymosis, Hemotypanum, Abrasion , Laceration Nose: Normal Throat: Normal Respiratory: Right, Left, Generalized, Wheezes Cardiovascular: Normal : Normal Auscultation: Bowel Sounds: Normal Palpation: Normal Tenderness: Suprapubic. negative: Rebound, Guarding, Rigidity Skin: Decreased Turgur Musculoskeletal: Motor Deficit, Instability Psychiatric: Other (ACUTE CONFUSION, AMS ) Mood Description: Calm Affect: Normal Speech Pattern: Clear, Appropriate - Laboratory and Diagnostics Result Diagrams: 04/03/17 05:25 04/03/17 05:25 Labs: Laboratory WBC 5.3 X10^3/uL (3.6-10.0) 04/03/17 05:25 RBC 4.00 X10^6/uL (4.7-6.0) L 04/03/17 05:25 Hgb 10.6 g/dL (13.5-18.0) L 04/03/17 05:25 Hct 31.7 % (42.0-54.0) L 04/03/17 05:25 MCV 79.2 fL (80.0-100.0) L 04/03/17 05:25 MCH 26.6 pg (27.0-34.0) L 04/03/17 05:25 MCHC 33.6 g/dL (33.0-35.0) 04/03/17 05:25 RDW 16.0 % (11.6-16.5) 04/03/17 05:25 Plt Count 130 X10^3/uL (150.0-450.0) L 04/03/17 05:25 MPV 8.4 fL (7.4-11.0) 04/03/17 05:25 Neut % 43.6 % (42.0-75.0) 04/03/17 05:25 Lymph % 41.4 % (21.0-51.0) 04/03/17 05:25 [facility] % 8.4 % (0.0-13.0) 04/03/17 05:25 Eos % 5.8 % (0.9-2.9) H 04/03/17 05:25 Baso % 0.8 % (0.2-1.0) 04/03/17 05:25 Neut # 2.3 x10^3/uL (2.2-4.8) 04/03/17 05:25 Lymph # 2.2 X10^3/uL (1.3-2.9) 04/03/17 05:25 [facility] # 0.4 x10^3/uL (0.3-0.8) 04/03/17 05:25 Eos # 0.3 x10^3/uL (0.0-0.2) H 04/03/17 05:25 Baso # 0.0 X10^3/uL (0.0-0.1) 04/03/17 05:25 Absolute Nucleated RBC 0.1 /100WBC 04/03/17 05:25 Sodium 141 mmol/L (136-145) 04/03/17 05:25 Corrected Sodium TNP 04/03/17 05:25 Potassium 4.5 mmol/L (3.5-5.1) 04/03/17 05:25 Chloride 107 mmol/L (98-107) 04/03/17 05:25 Carbon Dioxide 30.9 mmol/L (21-32) 04/03/17 05:25 BUN 15 mg/dL (7-18) 04/03/17 05:25 Creatinine 1.02 mg/dL (0.70-1.30) 04/03/17 05:25 Est GFR (MDRD) Af Amer > 60 (>60) 04/03/17 05:25 Est GFR (MDRD) Non-Af > 60 (>60) 04/03/17 05:25 Glucose 76 mg/dL (65-99) 04/03/17 05:25 Calcium 9.0 mg/dL (8.5-10.1) 04/03/17 05:25 Corrected Calcium 10.1 mg/dL (8.5-10.1) 04/03/17 05:25 Total Bilirubin 0.20 mg/dL (0.2-1.0) 04/03/17 05:25 AST 14 Units/L (15-37) L 04/03/17 05:25 ALT 7 Units/L (12-78) L 04/03/17 05:25 Alkaline Phosphatase 46 Units/L (46-116) 04/03/17 05:25 Total Protein 6.6 g/dL (6.4-8.2) 04/03/17 05:25 Albumin 2.6 g/dL (3.4-5.0) L 04/03/17 05:25 Globulin 4.0 g/dL (2.5-4.5) 04/03/17 05:25 Albumin/Globulin Ratio 0.7 Ratio (1.1-2.1) L 04/03/17 05:25 Specimen Type Catherized urine 03/29/17 19:17 Urine Color Pale yellow (YELLOW) 03/29/17 19:17 Urine Appearance Clear (CLEAR) 03/29/17 19:17 Urine pH 7.0 (5.0 - 8.0) 03/29/17 19:17 Ur Specific [place] 1.010 (1.000-1.030) 03/29/17 19:17 Urine Protein Negative (NEGATIVE) 03/29/17 19:17 Urine Glucose (UA) Negative (NEGATIVE) 03/29/17 19:17 Urine Ketones Negative (NEGATIVE) 03/29/17 19:17 Urine Occult Blood Negative (NEGATIVE) 03/29/17 19:17 Urine Nitrite Negative (NEGATIVE) 03/29/17 19:17 Urine Bilirubin Negative (NEGATIVE) 03/29/17 19:17 Urine Urobilinogen Normal (NORMAL) 03/29/17 19:17 Ur Leukocyte Esterase Negative (NEGATIVE) 03/29/17 19:17 Urine RBC 0-1 /HPF (NEGATIVE) 03/29/17 19:17 Urine WBC 0-1 /HPF (NEGATIVE) 03/29/17 19:17 Ur Squamous Epith Cells Few /HPF (NEGATIVE) 03/29/17 19:17 Urine Bacteria Trace /HPF (NEGATIVE) 03/29/17 19:17 Ur Culture Indicated? No/not indicated 03/29/17 19:17 - Plan (1) Bronchitis Status: Acute Plan: ROCEPHIN 1GM IV DAILY, CONTINUE IV FLUIDS, CONTINUE TO MONITOR (2) Urinary tract infection Status: Acute Qualifiers: Urinary tract infection type: acute cystitis Hematuria presence: without hematuria Qualified Code(s): N30.00 - Acute cystitis without hematuria Plan: ROCEPHIN 1GM IV DAILY, CONTINUE IV FLUIDS, CONTINUE TO MONITOR (3) Generalized weakness Status: Acute Plan: CONTINUE IV FLUIDS, CONTINUE PHYSICAL THERAPY (4) Hypertension Status: Chronic Qualifiers: Hypertension type: essential hypertension Qualified Code(s): I10 - Essential (primary) hypertension Plan: CONTINUE LOPRESSOR, CONTINUE TO MONITOR (5) Dementia Status: Chronic Qualifiers: Dementia type: vascular dementia Dementia behavioral disturbance: with behavioral disturbance Qualified Code(s): F01.51 - Vascular dementia with behavioral disturbance Plan: MANUEL NAVARRETE, CONTINUE NAMENDA, CONTINUE ARICEPT, CONTINUE SEROQUEL, CONTINUE TO MONITOR (6) GERD (gastroesophageal reflux disease) Status: Chronic Qualifiers: Esophagitis presence: esophagitis presence not specified Qualified Code(s) : K21.9 - Gastro-esophageal reflux disease without esophagitis Plan: CONTINUE ZANTAC, CONTINUE TO MONITOR (7) Hx of pulmonary embolus Status: Chronic Plan: CONTINUE ELIQUIS, CONTINUE TO MONITOR (8) History of DVT (deep vein thrombosis) Status: Chronic Plan: CONTINUE ELIQUIS, CONTINUE TO MONITOR (9) Depression Status: Chronic Qualifiers: Depression Type: major depressive disorder Major depression recurrence: recurrent Active/Remission status: remission status unspecified Qualified Code(s): F33.9 - Major depressive disorder, recurrent, unspecified Plan: CONTINUE EFFEXOR, CONTINUE TO MONITOR
--- NOTE | 2017-04-03 13:26 | PCM.PROG ---
Progress Note - Progress Note for Day of Date: 04/01/17 - Subjective Subjective: WAS ADMITTED FOR ALTERED MENTAL STATUS, GENERALIZED WEAKNESS, AND SHORTNESS OF BREATH. TODAY, HE IS LYING IN BED WITH EYES CLOSED ON MORNING ROUNDS. HE AWAKENS TO VERBAL STIMULI. HE CONTINUES WITH GENERALIZED WEAKNESS, SHORTNESS OF BREATH, AND A NON-PRODUCTIVE COUGH. ON EXAMINATION, HEART IS REGULAR IN RATE AND RHYTHM. BILATERAL LUNGS CONTINUE WITH EXPIRATORY WHEEZING. HE IS CURRENTLY UTILIZING OXYGEN VIA NASAL CANNULA. ABDOMEN IS ROUND, SOFT, AND CONTINUES WITH SUPRAPUBIC TENDERNESS ON EXAMINATION. A PRO CATHETER IS NOTED TO BEDSIDE DRAINAGE. URINE CONTINUE TO BE STRAW COLORED WITH SEDIMENT IN BAG. THERE IS WEAKNESS NOTED TO ALL EXTREMITIES. HIS VITALS THIS MORNING ARE 98.3-54-20-100%-108/64. LABS WERE OBTAINED. ABNORMAL LAB VALUES INCLUDE THE FOLLOWING: RBC 3.96, HGB 10.0, HCT 29.7, CARBON DIOXIDE 32.4, AST 12, ALT 9, ALBUMIN 2.7. HE DENIES A BOWEL MOVEMENT IN SEVERAL DAYS. WE WILL START A BOWEL REGIEMEN OF MILK OF MAGNESIA AND COLACE TODAY. HE CONTINUES TO RECEIVE ROCEPHIN 1GM IV DAILY FOR TX OF A URINARY TRACT INFECTION. WE WILL CONTINUE WITH CURRENT PLAN OF CARE TODAY. OTHERWISE, WE PLAN TO FOLLOW UP WITH AM LABS AND CONTINUE TO MONITOR PATIENT. - Past Medical Family Social History Past Med/Fam/Surg Hx: No changes since H&P Allergies: Allergies No Known Drug Allergies Allergy (Verified 09/09/16 12:13) - Review of Systems ROS: No change since H&P - Vital Signs and I&O's Vital Signs: Temperature 96.5 F Pulse Rate [Left Brachial] 73 Pulse Rate [Right Brachial] 49 Respiratory Rate 18 Blood Pressure [Left Arm] 141/63 Blood Pressure [Right Arm] 116/58 Blood Pressure 107/57 O2 Sat by Pulse Oximetry 93 Intake and Output: Intake & Output 04/01/17 04/02/17 04/03/17 04/04/17 11:59 11:59 11:59 11:59 Intake Total 1505 2080 1221 Output Total 0 1500 Balance -309 395 4741 - Physical Exam Oriented: Person Eyes: Normal. negative: Blurred Vision, Diplopia, Discharge, Pain, Redness, Photophobia, Other Ear: Normal. negative: Right, Left, Swelling, Ecchymosis, Hemotypanum, Abrasion , Laceration Nose: Normal Throat: Normal Respiratory: Right, Left, Generalized, Wheezes Cardiovascular: Normal : Normal Auscultation: Bowel Sounds: Normal Palpation: Normal Tenderness: Suprapubic. negative: Rebound, Guarding, Rigidity Skin: Decreased Turgur Musculoskeletal: Motor Deficit, Instability Psychiatric: Other (ACUTE CONFUSION, AMS ) Mood Description: Calm Affect: Normal Speech Pattern: Clear, Appropriate - Laboratory and Diagnostics Result Diagrams: 04/03/17 05:25 04/03/17 05:25 Labs: Laboratory WBC 5.3 X10^3/uL (3.6-10.0) 04/03/17 05:25 RBC 4.00 X10^6/uL (4.7-6.0) L 04/03/17 05:25 Hgb 10.6 g/dL (13.5-18.0) L 04/03/17 05:25 Hct 31.7 % (42.0-54.0) L 04/03/17 05:25 MCV 79.2 fL (80.0-100.0) L 04/03/17 05:25 MCH 26.6 pg (27.0-34.0) L 04/03/17 05:25 MCHC 33.6 g/dL (33.0-35.0) 04/03/17 05:25 RDW 16.0 % (11.6-16.5) 04/03/17 05:25 Plt Count 130 X10^3/uL (150.0-450.0) L 04/03/17 05:25 MPV 8.4 fL (7.4-11.0) 04/03/17 05:25 Neut % 43.6 % (42.0-75.0) 04/03/17 05:25 Lymph % 41.4 % (21.0-51.0) 04/03/17 05:25 [place] % 8.4 % (0.0-13.0) 04/03/17 05:25 Eos % 5.8 % (0.9-2.9) H 04/03/17 05:25 Baso % 0.8 % (0.2-1.0) 04/03/17 05:25 Neut # 2.3 x10^3/uL (2.2-4.8) 04/03/17 05:25 Lymph # 2.2 X10^3/uL (1.3-2.9) 04/03/17 05:25 [place] # 0.4 x10^3/uL (0.3-0.8) 04/03/17 05:25 Eos # 0.3 x10^3/uL (0.0-0.2) H 04/03/17 05:25 Baso # 0.0 X10^3/uL (0.0-0.1) 04/03/17 05:25 Absolute Nucleated RBC 0.1 /100WBC 04/03/17 05:25 Sodium 141 mmol/L (136-145) 04/03/17 05:25 Corrected Sodium TNP 04/03/17 05:25 Potassium 4.5 mmol/L (3.5-5.1) 04/03/17 05:25 Chloride 107 mmol/L (98-107) 04/03/17 05:25 Carbon Dioxide 30.9 mmol/L (21-32) 04/03/17 05:25 BUN 15 mg/dL (7-18) 04/03/17 05:25 Creatinine 1.02 mg/dL (0.70-1.30) 04/03/17 05:25 Est GFR (MDRD) Af Amer > 60 (>60) 04/03/17 05:25 Est GFR (MDRD) Non-Af > 60 (>60) 04/03/17 05:25 Glucose 76 mg/dL (65-99) 04/03/17 05:25 Calcium 9.0 mg/dL (8.5-10.1) 04/03/17 05:25 Corrected Calcium 10.1 mg/dL (8.5-10.1) 04/03/17 05:25 Total Bilirubin 0.20 mg/dL (0.2-1.0) 04/03/17 05:25 AST 14 Units/L (15-37) L 04/03/17 05:25 ALT 7 Units/L (12-78) L 04/03/17 05:25 Alkaline Phosphatase 46 Units/L (46-116) 04/03/17 05:25 Total Protein 6.6 g/dL (6.4-8.2) 04/03/17 05:25 Albumin 2.6 g/dL (3.4-5.0) L 04/03/17 05:25 Globulin 4.0 g/dL (2.5-4.5) 04/03/17 05:25 Albumin/Globulin Ratio 0.7 Ratio (1.1-2.1) L 04/03/17 05:25 Specimen Type Catherized urine 03/29/17 19:17 Urine Color Pale yellow (YELLOW) 03/29/17 19:17 Urine Appearance Clear (CLEAR) 03/29/17 19:17 Urine pH 7.0 (5.0 - 8.0) 03/29/17 19:17 Ur Specific Bells 1.010 (1.000-1.030) 03/29/17 19:17 Urine Protein Negative (NEGATIVE) 03/29/17 19:17 Urine Glucose (UA) Negative (NEGATIVE) 03/29/17 19:17 Urine Ketones Negative (NEGATIVE) 03/29/17 19:17 Urine Occult Blood Negative (NEGATIVE) 03/29/17 19:17 Urine Nitrite Negative (NEGATIVE) 03/29/17 19:17 Urine Bilirubin Negative (NEGATIVE) 03/29/17 19:17 Urine Urobilinogen Normal (NORMAL) 03/29/17 19:17 Ur Leukocyte Esterase Negative (NEGATIVE) 03/29/17 19:17 Urine RBC 0-1 /HPF (NEGATIVE) 03/29/17 19:17 Urine WBC 0-1 /HPF (NEGATIVE) 03/29/17 19:17 Ur Squamous Epith Cells Few /HPF (NEGATIVE) 03/29/17 19:17 Urine Bacteria Trace /HPF (NEGATIVE) 03/29/17 19:17 Ur Culture Indicated? No/not indicated 03/29/17 19:17 - Plan (1) Bronchitis Status: Acute Plan: ROCEPHIN 1GM IV DAILY, CONTINUE IV FLUIDS, CONTINUE TO MONITOR (2) Urinary tract infection Status: Acute Qualifiers: Urinary tract infection type: acute cystitis Hematuria presence: without hematuria Qualified Code(s): N30.00 - Acute cystitis without hematuria Plan: ROCEPHIN 1GM IV DAILY, CONTINUE IV FLUIDS, CONTINUE TO MONITOR (3) Generalized weakness Status: Acute Plan: CONTINUE IV FLUIDS, CONTINUE PHYSICAL THERAPY (4) Hypertension Status: Chronic Qualifiers: Hypertension type: essential hypertension Qualified Code(s): I10 - Essential (primary) hypertension Plan: CONTINUE LOPRESSOR, CONTINUE TO MONITOR (5) Dementia Status: Chronic Qualifiers: Dementia type: vascular dementia Dementia behavioral disturbance: with behavioral disturbance Qualified Code(s): F01.51 - Vascular dementia with behavioral disturbance Plan: MANUEL NAVARRETE, CONTINUE NAMENDA, CONTINUE ARICEPT, CONTINUE SEROQUEL, CONTINUE TO MONITOR (6) GERD (gastroesophageal reflux disease) Status: Chronic Qualifiers: Esophagitis presence: esophagitis presence not specified Qualified Code(s) : K21.9 - Gastro-esophageal reflux disease without esophagitis Plan: CONTINUE ZANTAC, CONTINUE TO MONITOR (7) Hx of pulmonary embolus Status: Chronic Plan: CONTINUE ELIQUIS, CONTINUE TO MONITOR (8) History of DVT (deep vein thrombosis) Status: Chronic Plan: CONTINUE ELIQUIS, CONTINUE TO MONITOR (9) Depression Status: Chronic Qualifiers: Depression Type: major depressive disorder Major depression recurrence: recurrent Active/Remission status: remission status unspecified Qualified Code(s): F33.9 - Major depressive disorder, recurrent, unspecified Plan: CONTINUE EFFEXOR, CONTINUE TO MONITOR
[2017-04-03] MEDS: NS 1000 ML 1,000 ML IV SCH (19:25)
[2017-04-03] MEDS: ARICEPT TAB 10 MG PO SCH (21:44)
[2017-04-03] MEDS: COLACE CAP 100 MG PO SCH (21:44)
[2017-04-04] MEDS: NS 1000 ML 1,000 ML IV SCH ×2 (01:22→16:27)
[2017-04-04] MEDS: LOPRESSOR TAB 25 MG PO SCH ×3 (01:22→21:13)
[2017-04-04 05:42] LABS: ALANINE AMINOTRANSFERASE 9 Units/L (12-78); ALBUMIN 2.5 g/dL (3.4-5.0); ALKALINE PHOSPHATASE 44 Units/L (46-116); ASPARTATE AMINO TRANSFERASE 16 Units/L (15-37); BLOOD UREA NITROGEN 14 mg/dL (7-18); CALCIUM 8.5 mg/dL (8.5-10.1); CARBON DIOXIDE 30.6 mmol/L (21-32); CHLORIDE 106 mmol/L (98-107); COR CA(FOR HYPOALB) 9.7 mg/dL (8.5-10.1); CREATININE 1.05 mg/dL (0.70-1.30); SODIUM 141 mmol/L (136-145); TOTAL PROTEIN 6.2 g/dL (6.4-8.2); eGFR BLACK RACES > 60 (>60); eGFR NON BLACK RACES > 60 (>60)
[2017-04-04 05:43] LABS: BASOPHILS % (AUTO) 0.8 % (0.2-1.0); EOSINOPHILS # (AUTO) 0.4 x10^3/uL (0.0-0.2); EOSINOPHILS % (AUTO) 7.5 % (0.9-2.9); HEMATOCRIT 30.1 % (42.0-54.0); HEMOGLOBIN 10.2 g/dL (13.5-18.0); LYMPHOCYTES # (AUTO) 1.8 X10^3/uL (1.3-2.9); LYMPHOCYTES % (AUTO) 32.1 % (21.0-51.0); MEAN CORPUSCULAR HEMOGLOBIN 26.6 pg (27.0-34.0); MEAN CORPUSCULAR HGB CONC 33.9 g/dL (33.0-35.0); MEAN CORPUSCULAR VOLUME 78.4 fL (80.0-100.0); MEAN PLATELET VOLUME 8.6 fL (7.4-11.0); MONOCYTES # (AUTO) 0.5 x10^3/uL (0.3-0.8); MONOCYTES % (AUTO) 9.9 % (0.0-13.0); NEUTROPHILS # (AUTO) 2.7 x10^3/uL (2.2-4.8); NEUTROPHILS % (AUTO) 49.7 % (42.0-75.0); PLATELET COUNT 116 X10^3/uL (150.0-450.0); RED BLOOD COUNT 3.84 X10^6/uL (4.7-6.0); RED CELL DISTRIBUTION WIDTH 16.2 % (11.6-16.5)
[2017-04-04 06:12] LABS: PLATELET MORPHOLOGY COMMENT NORMAL (NORMAL)
[2017-04-04] MEDS: VALPROIC ACID PO SCH ×3 (06:12→21:13)
[2017-04-04] MEDS: ROCEPHIN VIAL 1 GM 1 GM in NS 100 ML IV + SPIKE MINIBAG* 100 ML IV SCH (10:41)
[2017-04-04] MEDS: ELIQUIS PO SCH ×2 (10:48→21:00)
[2017-04-04] MEDS: EFFEXOR TAB 75 MG (BID DOSING) PO SCH ×2 (10:48→21:01)
[2017-04-04] MEDS: ZANTAC PO SCH ×2 (10:49→21:01)
[2017-04-04] MEDS: GEODON PO SCH ×2 (10:49→21:00)
[2017-04-04] MEDS: LASIX PO SCH ×2 (10:50→21:01)
[2017-04-04] MEDS: NAMENDA TAB 10 MG PO SCH ×2 (10:50→21:01)
[2017-04-04] MEDS: SEROquel TAB 100 MG PO SCH ×2 (10:51→21:00)
[2017-04-04] MEDS: SINGULAIR TAB 10 MG PO SCH (10:51)
--- NOTE | 2017-04-04 11:16 | PCM.PROG ---
Progress Note - Progress Note for Day of Date: 04/02/17 - Subjective Subjective: WAS ADMITTED FOR ALTERED MENTAL STATUS, GENERALIZED WEAKNESS, AND SHORTNESS OF BREATH. TODAY, HE IS LYING IN BED WITH EYES CLOSED ON MORNING ROUNDS. HE AWAKENS TO VERBAL STIMULI. HE CONTINUES WITH GENERALIZED WEAKNESS, SHORTNESS OF BREATH, AND A NON-PRODUCTIVE COUGH. ON EXAMINATION, HEART IS REGULAR IN RATE AND RHYTHM. BILATERAL LUNGS ARE NOTED WITH DIMINISHED LUNG SOUNDS THROUGHOUT. HE IS CURRENTLY UTILIZING OXYGEN VIA NASAL CANNULA. ABDOMEN IS ROUND, SOFT, AND CONTINUES WITH SUPRAPUBIC TENDERNESS ON EXAMINATION. A PRO CATHETER IS NOTED TO BEDSIDE DRAINAGE. URINE CONTINUE TO BE STRAW COLORED WITH SEDIMENT IN BAG. THERE IS WEAKNESS NOTED TO ALL EXTREMITIES. HIS VITALS THIS MORNING ARE 97.7-54-20-96%-121/59. LABS WERE OBTAINED. ABNORMAL LAB VALUES INCLUDE THE FOLLOWING: RBC 3.73, HGB 10.0, HCT 29.7, AST 12, ALT 10, TOTAL PROTEIN 6.3, ALBUMIN 2.5. PATIENT REPORTED HAVING A BOWEL MOVEMENT AFTER STARTING A BOWEL REGIMEN YESTERDAY. HE CONTINUES TO RECEIVE ROCEPHIN 1GM IV DAILY FOR TX OF A URINARY TRACT INFECTION. OCCUPATIONAL THERAPY CONTIUES TO WORK WITH PATIENT. PATIENT IS COOPERATIVE WITH THERAPY. WE WILL CONTINUE WITH CURRENT PLAN OF CARE TODAY. WE WILL DISCONTINUE PRO CATHETER. OTHERWISE, WE PLAN TO FOLLOW UP WITH AM LABS AND CONTINUE TO MONITOR PATIENT. - Past Medical Family Social History Past Med/Fam/Surg Hx: No changes since H&P Allergies: Allergies No Known Drug Allergies Allergy (Verified 09/09/16 12:13) - Review of Systems ROS: No change since H&P - Vital Signs and I&O's Vital Signs: Temperature 97.6 F Pulse Rate [Left Brachial] 73 Pulse Rate [Right Brachial] 57 Respiratory Rate 20 Blood Pressure [Left Arm] 141/63 Blood Pressure [Right Arm] 137/64 Blood Pressure 107/57 O2 Sat by Pulse Oximetry 99 Intake and Output: Intake & Output 04/01/17 04/02/17 04/03/17 04/04/17 11:59 11:59 11:59 11:59 Intake Total 1505 2080 1221 1260 Output Total 2050 1500 Balance -213 972 4316 1260 - Physical Exam Oriented: Person Eyes: Normal. negative: Blurred Vision, Diplopia, Discharge, Pain, Redness, Photophobia, Other Ear: Normal. negative: Right, Left, Swelling, Ecchymosis, Hemotypanum, Abrasion , Laceration Nose: Normal Throat: Normal Respiratory: Right, Left, Generalized, Wheezes Cardiovascular: Normal : Normal Auscultation: Bowel Sounds: Normal Palpation: Normal Tenderness: Suprapubic. negative: Rebound, Guarding, Rigidity Skin: Decreased Turgur Musculoskeletal: Motor Deficit, Instability Psychiatric: Other (ACUTE CONFUSION, AMS ) Mood Description: Calm Affect: Normal Speech Pattern: Aphasic - Laboratory and Diagnostics Result Diagrams: 04/04/17 04:37 04/04/17 04:37 Labs: Laboratory WBC 6.0 X10^3/uL (3.6-10.0) 04/04/17 04:37 RBC 3.84 X10^6/uL (4.7-6.0) L 04/04/17 04:37 Hgb 10.2 g/dL (13.5-18.0) L 04/04/17 04:37 Hct 30.1 % (42.0-54.0) L 04/04/17 04:37 MCV 78.4 fL (80.0-100.0) L 04/04/17 04:37 MCH 26.6 pg (27.0-34.0) L 04/04/17 04:37 MCHC 33.9 g/dL (33.0-35.0) 04/04/17 04:37 RDW 16.2 % (11.6-16.5) 04/04/17 04:37 Plt Count 116 X10^3/uL (150.0-450.0) L 04/04/17 04:37 Plt Count Comment Decreased (ADEQUATE) 04/04/17 04:37 MPV 8.6 fL (7.4-11.0) 04/04/17 04:37 Neut % 49.7 % (42.0-75.0) 04/04/17 04:37 Lymph % 32.1 % (21.0-51.0) 04/04/17 04:37 [place] % 9.9 % (0.0-13.0) 04/04/17 04:37 Eos % 7.5 % (0.9-2.9) H 04/04/17 04:37 Baso % 0.8 % (0.2-1.0) 04/04/17 04:37 Neut # 2.7 x10^3/uL (2.2-4.8) 04/04/17 04:37 Lymph # 1.8 X10^3/uL (1.3-2.9) 04/04/17 04:37 [place] # 0.5 x10^3/uL (0.3-0.8) 04/04/17 04:37 Eos # 0.4 x10^3/uL (0.0-0.2) H 04/04/17 04:37 Baso # 0.0 X10^3/uL (0.0-0.1) 04/04/17 04:37 Absolute Nucleated RBC 0.3 /100WBC 04/04/17 04:37 Plt Morphology Comment Normal (NORMAL) 04/04/17 04:37 RBC Morphology Normal (NORMAL) 04/04/17 04:37 Sodium 141 mmol/L (136-145) 04/04/17 04:37 Corrected Sodium TNP 04/04/17 04:37 Potassium 4.3 mmol/L (3.5-5.1) 04/04/17 04:37 Chloride 106 mmol/L (98-107) 04/04/17 04:37 Carbon Dioxide 30.6 mmol/L (21-32) 04/04/17 04:37 BUN 14 mg/dL (7-18) 04/04/17 04:37 Creatinine 1.05 mg/dL (0.70-1.30) 04/04/17 04:37 Est GFR (MDRD) Af Amer > 60 (>60) 04/04/17 04:37 Est GFR (MDRD) Non-Af > 60 (>60) 04/04/17 04:37 Glucose 86 mg/dL (65-99) 04/04/17 04:37 Calcium 8.5 mg/dL (8.5-10.1) 04/04/17 04:37 Corrected Calcium 9.7 mg/dL (8.5-10.1) 04/04/17 04:37 Total Bilirubin 0.20 mg/dL (0.2-1.0) 04/04/17 04:37 AST 16 Units/L (15-37) 04/04/17 04:37 ALT 9 Units/L (12-78) L 04/04/17 04:37 Alkaline Phosphatase 44 Units/L (46-116) L 04/04/17 04:37 Total Protein 6.2 g/dL (6.4-8.2) L 04/04/17 04:37 Albumin 2.5 g/dL (3.4-5.0) L 04/04/17 04:37 Globulin 3.7 g/dL (2.5-4.5) 04/04/17 04:37 Albumin/Globulin Ratio 0.7 Ratio (1.1-2.1) L 04/04/17 04:37 Specimen Type Catherized urine 03/29/17 19:17 Urine Color Pale yellow (YELLOW) 03/29/17 19:17 Urine Appearance Clear (CLEAR) 03/29/17 19:17 Urine pH 7.0 (5.0 - 8.0) 03/29/17 19:17 Ur Specific [place] 1.010 (1.000-1.030) 03/29/17 19:17 Urine Protein Negative (NEGATIVE) 03/29/17 19:17 Urine Glucose (UA) Negative (NEGATIVE) 03/29/17 19:17 Urine Ketones Negative (NEGATIVE) 03/29/17 19:17 Urine Occult Blood Negative (NEGATIVE) 03/29/17 19:17 Urine Nitrite Negative (NEGATIVE) 03/29/17 19:17 Urine Bilirubin Negative (NEGATIVE) 03/29/17 19:17 Urine Urobilinogen Normal (NORMAL) 03/29/17 19:17 Ur Leukocyte Esterase Negative (NEGATIVE) 03/29/17 19:17 Urine RBC 0-1 /HPF (NEGATIVE) 03/29/17 19:17 Urine WBC 0-1 /HPF (NEGATIVE) 03/29/17 19:17 Ur Squamous Epith Cells Few /HPF (NEGATIVE) 03/29/17 19:17 Urine Bacteria Trace /HPF (NEGATIVE) 03/29/17 19:17 Ur Culture Indicated? No/not indicated 03/29/17 19:17 - Plan (1) Urinary tract infection Status: Acute Qualifiers: Urinary tract infection type: acute cystitis Hematuria presence: without hematuria Qualified Code(s): N30.00 - Acute cystitis without hematuria Plan: ROCEPHIN 1GM IV DAILY, CONTINUE IV FLUIDS, CONTINUE TO MONITOR (2) Generalized weakness Status: Acute Plan: CONTINUE IV FLUIDS, CONTINUE PHYSICAL THERAPY (3) Hypertension Status: Chronic Qualifiers: Hypertension type: essential hypertension Qualified Code(s): I10 - Essential (primary) hypertension Plan: CONTINUE LOPRESSOR, CONTINUE TO MONITOR (4) Dementia Status: Chronic Qualifiers: Dementia type: vascular dementia Dementia behavioral disturbance: with behavioral disturbance Qualified Code(s): F01.51 - Vascular dementia with behavioral disturbance Plan: COTNINUE GEODON, CONTINUE NAMENDA, CONTINUE ARICEPT, CONTINUE SEROQUEL, CONTINUE TO MONITOR (5) GERD (gastroesophageal reflux disease) Status: Chronic Qualifiers: Esophagitis presence: esophagitis presence not specified Qualified Code(s) : K21.9 - Gastro-esophageal reflux disease without esophagitis Plan: CONTINUE ZANTAC, CONTINUE TO MONITOR (6) Hx of pulmonary embolus Status: Chronic Plan: CONTINUE ELIQUIS, CONTINUE TO MONITOR (7) History of DVT (deep vein thrombosis) Status: Chronic Plan: CONTINUE ELIQUIS, CONTINUE TO MONITOR (8) Depression Status: Chronic Qualifiers: Depression Type: major depressive disorder Major depression recurrence: recurrent Active/Remission status: remission status unspecified Qualified Code(s): F33.9 - Major depressive disorder, recurrent, unspecified Plan: CONTINUE EFFEXOR, CONTINUE TO MONITOR
--- NOTE | 2017-04-04 11:55 | PCM.PROG ---
Progress Note - Progress Note for Day of Date: 04/03/17 - Subjective Subjective: WAS ADMITTED FOR ALTERED MENTAL STATUS, GENERALIZED WEAKNESS, AND SHORTNESS OF BREATH. TODAY, HE IS LYING IN BED WITH EYES CLOSED ON MORNING ROUNDS. HE AWAKENS TO VERBAL STIMULI. HE CONTINUES WITH GENERALIZED WEAKNESS, BUT DENIES SHORTNESS OF BREATH THIS MORNING. ON EXAMINATION, HEART IS REGULAR IN RATE AND RHYTHM. BILATERAL LUNGS ARE NOTED WITH DIMINISHED LUNG SOUNDS THROUGHOUT. HE IS CURRENTLY UTILIZING OXYGEN VIA NASAL CANNULA. ABDOMEN IS ROUND, SOFT, AND CONTINUES WITH SUPRAPUBIC TENDERNESS ON EXAMINATION. THERE IS WEAKNESS NOTED TO ALL EXTREMITIES, ALTHOUGH IMPROVED SINCE YESTERDAY. HIS VITALS THIS MORNING ARE 98.3-55-20-95%-107/57. LABS WERE OBTAINED. HE REMAINS HEMODYNAMICALLY STABLE TODAY. HE CONTINUES TO RECEIVE ROCEPHIN 1GM IV DAILY FOR TX OF A URINARY TRACT INFECTION. OCCUPATIONAL THERAPY CONTIUES TO WORK WITH PATIENT. PATIENT IS COOPERATIVE WITH THERAPY. WE WILL CONTINUE WITH CURRENT PLAN OF CARE TODAY. OTHERWISE, WE PLAN TO FOLLOW UP WITH AM LABS AND CONTINUE TO MONITOR PATIENT. WE WILL PLAN FOR DISCHARGE IN THE MORNING IF PATIENT REMAINS STABLE. - Past Medical Family Social History Past Med/Fam/Surg Hx: No changes since H&P Allergies: Allergies No Known Drug Allergies Allergy (Verified 09/09/16 12:13) - Review of Systems ROS: No change since H&P - Vital Signs and I&O's Vital Signs: Temperature 97.6 F Pulse Rate [Left Brachial] 73 Pulse Rate [Right Brachial] 57 Respiratory Rate 20 Blood Pressure [Left Arm] 141/63 Blood Pressure [Right Arm] 137/64 Blood Pressure 107/57 O2 Sat by Pulse Oximetry 99 Intake and Output: Intake & Output 04/01/17 04/02/17 04/03/17 04/04/17 11:59 11:59 11:59 11:59 Intake Total 1505 2080 1221 1260 Output Total 2050 1500 Balance -012 726 5062 1260 - Physical Exam Oriented: Person Eyes: Normal. negative: Blurred Vision, Diplopia, Discharge, Pain, Redness, Photophobia, Other Ear: Normal. negative: Right, Left, Swelling, Ecchymosis, Hemotypanum, Abrasion , Laceration Nose: Normal Throat: Normal Respiratory: Right, Left, Generalized, Wheezes Cardiovascular: Normal : Normal Auscultation: Bowel Sounds: Normal Palpation: Normal Tenderness: Suprapubic. negative: Rebound, Guarding, Rigidity Skin: Decreased Turgur Musculoskeletal: Motor Deficit, Instability Psychiatric: Other (ACUTE CONFUSION, AMS ) Mood Description: Calm Affect: Normal Speech Pattern: Aphasic - Laboratory and Diagnostics Result Diagrams: 04/04/17 04:37 04/04/17 04:37 Labs: Laboratory WBC 6.0 X10^3/uL (3.6-10.0) 04/04/17 04:37 RBC 3.84 X10^6/uL (4.7-6.0) L 04/04/17 04:37 Hgb 10.2 g/dL (13.5-18.0) L 04/04/17 04:37 Hct 30.1 % (42.0-54.0) L 04/04/17 04:37 MCV 78.4 fL (80.0-100.0) L 04/04/17 04:37 MCH 26.6 pg (27.0-34.0) L 04/04/17 04:37 MCHC 33.9 g/dL (33.0-35.0) 04/04/17 04:37 RDW 16.2 % (11.6-16.5) 04/04/17 04:37 Plt Count 116 X10^3/uL (150.0-450.0) L 04/04/17 04:37 Plt Count Comment Decreased (ADEQUATE) 04/04/17 04:37 MPV 8.6 fL (7.4-11.0) 04/04/17 04:37 Neut % 49.7 % (42.0-75.0) 04/04/17 04:37 Lymph % 32.1 % (21.0-51.0) 04/04/17 04:37 [place] % 9.9 % (0.0-13.0) 04/04/17 04:37 Eos % 7.5 % (0.9-2.9) H 04/04/17 04:37 Baso % 0.8 % (0.2-1.0) 04/04/17 04:37 Neut # 2.7 x10^3/uL (2.2-4.8) 04/04/17 04:37 Lymph # 1.8 X10^3/uL (1.3-2.9) 04/04/17 04:37 [place] # 0.5 x10^3/uL (0.3-0.8) 04/04/17 04:37 Eos # 0.4 x10^3/uL (0.0-0.2) H 04/04/17 04:37 Baso # 0.0 X10^3/uL (0.0-0.1) 04/04/17 04:37 Absolute Nucleated RBC 0.3 /100WBC 04/04/17 04:37 Plt Morphology Comment Normal (NORMAL) 04/04/17 04:37 RBC Morphology Normal (NORMAL) 04/04/17 04:37 Sodium 141 mmol/L (136-145) 04/04/17 04:37 Corrected Sodium TNP 04/04/17 04:37 Potassium 4.3 mmol/L (3.5-5.1) 04/04/17 04:37 Chloride 106 mmol/L (98-107) 04/04/17 04:37 Carbon Dioxide 30.6 mmol/L (21-32) 04/04/17 04:37 BUN 14 mg/dL (7-18) 04/04/17 04:37 Creatinine 1.05 mg/dL (0.70-1.30) 04/04/17 04:37 Est GFR (MDRD) Af Amer > 60 (>60) 04/04/17 04:37 Est GFR (MDRD) Non-Af > 60 (>60) 04/04/17 04:37 Glucose 86 mg/dL (65-99) 04/04/17 04:37 Calcium 8.5 mg/dL (8.5-10.1) 04/04/17 04:37 Corrected Calcium 9.7 mg/dL (8.5-10.1) 04/04/17 04:37 Total Bilirubin 0.20 mg/dL (0.2-1.0) 04/04/17 04:37 AST 16 Units/L (15-37) 04/04/17 04:37 ALT 9 Units/L (12-78) L 04/04/17 04:37 Alkaline Phosphatase 44 Units/L (46-116) L 04/04/17 04:37 Total Protein 6.2 g/dL (6.4-8.2) L 04/04/17 04:37 Albumin 2.5 g/dL (3.4-5.0) L 04/04/17 04:37 Globulin 3.7 g/dL (2.5-4.5) 04/04/17 04:37 Albumin/Globulin Ratio 0.7 Ratio (1.1-2.1) L 04/04/17 04:37 Specimen Type Catherized urine 03/29/17 19:17 Urine Color Pale yellow (YELLOW) 03/29/17 19:17 Urine Appearance Clear (CLEAR) 03/29/17 19:17 Urine pH 7.0 (5.0 - 8.0) 03/29/17 19:17 Ur Specific [place] 1.010 (1.000-1.030) 03/29/17 19:17 Urine Protein Negative (NEGATIVE) 03/29/17 19:17 Urine Glucose (UA) Negative (NEGATIVE) 03/29/17 19:17 Urine Ketones Negative (NEGATIVE) 03/29/17 19:17 Urine Occult Blood Negative (NEGATIVE) 03/29/17 19:17 Urine Nitrite Negative (NEGATIVE) 03/29/17 19:17 Urine Bilirubin Negative (NEGATIVE) 03/29/17 19:17 Urine Urobilinogen Normal (NORMAL) 03/29/17 19:17 Ur Leukocyte Esterase Negative (NEGATIVE) 03/29/17 19:17 Urine RBC 0-1 /HPF (NEGATIVE) 03/29/17 19:17 Urine WBC 0-1 /HPF (NEGATIVE) 03/29/17 19:17 Ur Squamous Epith Cells Few /HPF (NEGATIVE) 03/29/17 19:17 Urine Bacteria Trace /HPF (NEGATIVE) 03/29/17 19:17 Ur Culture Indicated? No/not indicated 03/29/17 19:17 - Plan (1) Urinary tract infection Status: Acute Qualifiers: Urinary tract infection type: acute cystitis Hematuria presence: without hematuria Qualified Code(s): N30.00 - Acute cystitis without hematuria Plan: ROCEPHIN 1GM IV DAILY, CONTINUE IV FLUIDS, CONTINUE TO MONITOR (2) Generalized weakness Status: Acute Plan: CONTINUE IV FLUIDS, CONTINUE PHYSICAL THERAPY (3) Hypertension Status: Chronic Qualifiers: Hypertension type: essential hypertension Qualified Code(s): I10 - Essential (primary) hypertension Plan: CONTINUE LOPRESSOR, CONTINUE TO MONITOR (4) Dementia Status: Chronic Qualifiers: Dementia type: vascular dementia Dementia behavioral disturbance: with behavioral disturbance Qualified Code(s): F01.51 - Vascular dementia with behavioral disturbance Plan: COTSAI NAVARRETE, CONTINUE NAMENDA, CONTINUE ARICEPT, CONTINUE SEROQUEL, CONTINUE TO MONITOR (5) GERD (gastroesophageal reflux disease) Status: Chronic Qualifiers: Esophagitis presence: esophagitis presence not specified Qualified Code(s) : K21.9 - Gastro-esophageal reflux disease without esophagitis Plan: CONTINUE ZANTAC, CONTINUE TO MONITOR (6) Hx of pulmonary embolus Status: Chronic Plan: CONTINUE ELIQUIS, CONTINUE TO MONITOR (7) History of DVT (deep vein thrombosis) Status: Chronic Plan: CONTINUE ELIQUIS, CONTINUE TO MONITOR (8) Depression Status: Chronic Qualifiers: Depression Type: major depressive disorder Major depression recurrence: recurrent Active/Remission status: remission status unspecified Qualified Code(s): F33.9 - Major depressive disorder, recurrent, unspecified Plan: CONTINUE EFFEXOR, CONTINUE TO MONITOR
[2017-04-04] MEDS: COLACE CAP 100 MG PO SCH (21:00)
[2017-04-04] MEDS: NORCO 5/325 MG TAB PO PRN (21:01)
[2017-04-04] MEDS: ARICEPT TAB 10 MG PO SCH (21:01)
[2017-04-05] MEDS: NS 1000 ML 1,000 ML IV SCH (04:15)
[2017-04-05] MEDS: VALPROIC ACID PO SCH ×2 (06:15→15:32)
[2017-04-05 06:20] LABS: BASOPHILS % (AUTO) 0.7 % (0.2-1.0); EOSINOPHILS # (AUTO) 0.3 x10^3/uL (0.0-0.2); EOSINOPHILS % (AUTO) 5.2 % (0.9-2.9); HEMATOCRIT 31.5 % (42.0-54.0); HEMOGLOBIN 10.6 g/dL (13.5-18.0); LYMPHOCYTES # (AUTO) 1.9 X10^3/uL (1.3-2.9); LYMPHOCYTES % (AUTO) 35.6 % (21.0-51.0); MEAN CORPUSCULAR HEMOGLOBIN 26.9 pg (27.0-34.0); MEAN CORPUSCULAR HGB CONC 33.7 g/dL (33.0-35.0); MEAN CORPUSCULAR VOLUME 79.9 fL (80.0-100.0); MEAN PLATELET VOLUME 8.2 fL (7.4-11.0); MONOCYTES # (AUTO) 0.5 x10^3/uL (0.3-0.8); MONOCYTES % (AUTO) 10.5 % (0.0-13.0); NEUTROPHILS # (AUTO) 2.5 x10^3/uL (2.2-4.8); PLATELET COUNT 138 X10^3/uL (150.0-450.0); RED BLOOD COUNT 3.94 X10^6/uL (4.7-6.0); RED CELL DISTRIBUTION WIDTH 16.3 % (11.6-16.5); WHITE BLOOD COUNT 5.2 X10^3/uL (3.6-10.0)
[2017-04-05 06:29] LABS: ALANINE AMINOTRANSFERASE 12 Units/L (12-78); ALBUMIN 2.8 g/dL (3.4-5.0); ALKALINE PHOSPHATASE 49 Units/L (46-116); ASPARTATE AMINO TRANSFERASE 15 Units/L (15-37); BLOOD UREA NITROGEN 13 mg/dL (7-18); CALCIUM 8.9 mg/dL (8.5-10.1); CARBON DIOXIDE 31.5 mmol/L (21-32); CHLORIDE 106 mmol/L (98-107); COR CA(FOR HYPOALB) 9.9 mg/dL (8.5-10.1); CREATININE 1.12 mg/dL (0.70-1.30); SODIUM 142 mmol/L (136-145); TOTAL PROTEIN 6.7 g/dL (6.4-8.2); eGFR BLACK RACES > 60 (>60); eGFR NON BLACK RACES > 60 (>60)
[2017-04-05] MEDS: LOPRESSOR TAB 25 MG PO SCH (09:33)
[2017-04-05] MEDS: ROCEPHIN VIAL 1 GM 1 GM in NS 100 ML IV + SPIKE MINIBAG* 100 ML IV SCH (09:33)
[2017-04-05] MEDS: SINGULAIR TAB 10 MG PO SCH (09:33)
[2017-04-05] MEDS: NAMENDA TAB 10 MG PO SCH (09:35)
[2017-04-05] MEDS: EFFEXOR TAB 75 MG (BID DOSING) PO SCH (09:35)
[2017-04-05] MEDS: GEODON PO SCH (09:36)
[2017-04-05] MEDS: ELIQUIS PO SCH (09:36)
[2017-04-05] MEDS: ZANTAC PO SCH (09:36)
[2017-04-05] MEDS: LASIX PO SCH (09:36)
[2017-04-05] MEDS: SEROquel TAB 100 MG PO SCH (09:37)
[2017-04-05 16:36] VITALS: BP 118/61
== END 2017-04-05 16:55 | disposition home or self-care (01) | DRG 202 ==
LOC: OBS 11:50 → UNDOADMOB 11:50 → OBS 14:04 → MED/SURG 19:45 → OBSVTOIN 03-31 08:30
PROVIDERS: ADMIT Internal Medicine; ATTEND Internal Medicine
DX: J20.8 Acute bronchitis due to other specified organisms (principal); N30.00 Acute cystitis without hematuria; R53.1 Weakness; R06.02 Shortness of breath; R41.82 Altered mental status, unspecified; I10 Essential (primary) hypertension; F01.51 Vascular dementia, unspecified severity, with behavioral disturbance; K21.9 Gastro-esophageal reflux disease without esophagitis; F33.8 Other recurrent depressive disorders; Z86.718 Personal history of other venous thrombosis and embolism; Z86.711 Personal history of pulmonary embolism; R26.89 Other abnormalities of gait and mobility
CPT/HCPCS: 36415; 71045; 80053; 81001; 85025; 94760; 97535; A4216; A4222; G0378; J0696

== ENCOUNTER 2017-05-22 08:17 | Day surgery (SDC) | payer OTHER ==
[2017-05-22] MEDS ORDERED: DIPRIVAN VIAL 20 ML ONE (08:26)
[2017-05-22] MEDS ORDERED: NS 1000 ML 1,000 ML ONE (08:28)
[2017-05-22 09:58] VITALS: BP 117/70
== END 2017-05-22 09:55 | disposition home or self-care (01) ==
LOC: SURG1 08:17
PROVIDERS: ATTEND Surgery
PROC: 0DJD8ZZ Inspection of Lower Intestinal Tract, Via Natural or Artificial Opening Endoscopic (ICD-10-PCS; principal; 2017-05-22 09:15)
DX: R19.5 Other fecal abnormalities (principal); R19.4 Change in bowel habit; K57.30 Diverticulosis of large intestine without perforation or abscess without bleeding
CPT/HCPCS: 82378; 99100; A4217; J3490

== ENCOUNTER 2017-05-22 13:04 | Inpatient (IN) | payer OTHER ==
[2017-05-22 13:14] VITALS: BMI 27.4
--- NOTE | 2017-05-22 13:17 | DR.GENAD ---
HPI - Complaint/Symptoms Chief Complaint Doctors Comments: Patient had a colonscopy today s/p procedure had aspiration with cough, and wheeze. PMH - PMH Past Medical History: COPD, CVA, GERD, Hypertension Past Surgical History: Yes Surgical History: Cholecystectomy, Ortho Surgery - Family History Family Medical History: Cancer - Social History Do you use any recreational Drugs:: No ROS - Review of Systems Eyes: No Symptoms Reported ENTM: No Symptoms Reported, Hearing Loss Respiratoy: Non-Productive Cough, Dry Cough, Wheezing Cardiovascular: Palpitations Gastrointestinal/Abdominal: No Symptoms Reported Genitourinary: No Symptoms Reported Neurological: Speech Problem Musculoskeletal: No Symptoms Reported Integumentary: No Symptoms Reported Hematologic/Lymphatic: No Symptoms Reported Endocrine: No Symptoms Reported Psychiatric: No Symptoms Reported All Other Systems: Reviewed and Negative PE - Vital Signs Vitals: Pulse Rate 145 Respiratory Rate 25 Blood Pressure [Left Arm] 141/63 Blood Pressure [Right Arm] 118/61 Blood Pressure 133/88 O2 Sat by Pulse Oximetry 99 - General Limitations: No Limitations General Appearance: Alert, In No Apparent Distress - Head Head Exam: Normal Inspection, Atraumatic - Eyes Eye exam: Normal Appearance, PERRL, EOMI - ENT ENT Exam: Normal Exam External Ear Exam: Normal External Inspection TM/Canal Exam: Bilateral Normal Nose Exam: Normal Nose Exam Mouth Exam: Normal Inspection Throat Exam: Normal Inspection - Neck Neck Exam: Normal Inspection, Full ROM - Chest Chest Inspection: Normal Inspection - Respiratory Respiratory Exam: Normal Lung Sounds Bilat, Prolonged Expiratory Phase Respiratory Exam: Bilateral Wheezing - Cardiovascular Cardiovascular Exam: Tachycardia - Abdominal Exam Abdominal Exam: Normal Inspection, Normal Bowel Sounds Abdominal Tenderness: negative: RUQ, RLQ, LUQ, LLQ, Epigastrium, Suprapubic, Diffuse, Mild, Moderate, Severe, Other - Extremities Extremities Exam: Normal Inspection - Back Back Exam: Normal Inspection, Full ROM - Neurologic Neurological Exam: Alert, Oriented X3, CN II-XII Intact - Psychiatric Psychiatric Exam: Normal Affect, Normal Mood - Skin Skin Exam: Warm, Dry, Intact Course - Treatment Treatment: DuoNeb,Adenosine,NS,ceftriaxone 1gm - Reevaluation 1st: Unchanged ROR - Labs Reviewed Result Diagrams: 05/22/17 13:37 05/22/17 13:37 - XRAY XRAY Interpreted by: Radiologist (Chest: low volume insiraton is present. Minimal interstitial prominence is noted in the left lung base. This could be due to aspiration. The heart size is normal. Prominent left hilum is noted, unchanged..Impression: Minimally prominent lung markings in the left lung base. This may be due to focal interstitial/alveolar infiltrate or atelectatic change. Otherwise, no radiographic evidence of acute cardiopulmonary disease.) - Diagnosis Discharge Problem: Sinus tachycardia, Status post CVA Aspiration pneumonia Qualifiers: Aspiration pneumonia type: due to gastric secretions Laterality: left Lung location: lower lobe of lung Qualified Code(s): J69.0 - Pneumonitis due to inhalation of food and vomit - Discharge Plan Condition: Stable - Follow ups/Referrals Follow ups/Referrals: Lionel Darling [Primary Care Provider] - 3 days - Instructions
[2017-05-22] MEDS ORDERED: DUONEB 0.5 MG/3 MG NEB ONE (13:27)
[2017-05-22] MEDS ORDERED: ROCEPHIN 1 GM IV PREMIX 1 GM/50 ML IV.SOLN. IV ONE (13:53)
[2017-05-22] MEDS ORDERED: ROCEPHIN VIAL 1 GM 1 GM in NS 100 ML IV + SPIKE MINIBAG* 100 ML IV ONE (13:53)
[2017-05-22] MEDS: NS 1000 ML 1,000 ML IV SCH ×2 (13:55→22:22)
[2017-05-22] MEDS ORDERED: ADENOCARD INJ 6 MG ONE ×2 (13:55→13:59)
[2017-05-22 13:57] LABS: BASOPHILS # (AUTO) 0.1 X10^3/uL (0.0-0.1); BASOPHILS % (AUTO) 0.6 % (0.2-1.0); EOSINOPHILS % (AUTO) 0.1 % (0.9-2.9); HEMATOCRIT 36.7 % (42.0-54.0); HEMOGLOBIN 12.2 g/dL (13.5-18.0); LYMPHOCYTES # (AUTO) 0.9 X10^3/uL (1.3-2.9); LYMPHOCYTES % (AUTO) 5.4 % (21.0-51.0); MEAN CORPUSCULAR HEMOGLOBIN 25.7 pg (27.0-34.0); MEAN CORPUSCULAR HGB CONC 33.1 g/dL (33.0-35.0); MEAN CORPUSCULAR VOLUME 77.5 fL (80.0-100.0); MONOCYTES # (AUTO) 1.1 x10^3/uL (0.3-0.8); MONOCYTES % (AUTO) 6.8 % (0.0-13.0); NEUTROPHILS # (AUTO) 13.8 x10^3/uL (2.2-4.8); NEUTROPHILS % (AUTO) 87.1 % (42.0-75.0); PLATELET COUNT 261 X10^3/uL (150.0-450.0); RED BLOOD COUNT 4.74 X10^6/uL (4.7-6.0); RED CELL DISTRIBUTION WIDTH 15.4 % (11.6-16.5); WHITE BLOOD COUNT 15.8 X10^3/uL (3.6-10.0)
[2017-05-22] MEDS: ADENOCARD INJ 6 MG IVP ONE ×2 (13:58→14:00)
[2017-05-22] MEDS ORDERED: ROCEPHIN VIAL 1 GM ONE (14:03)
[2017-05-22 14:04] LABS: BLOOD UREA NITROGEN 16 mg/dL (7-18); CALCIUM 9.2 mg/dL (8.5-10.1); CARBON DIOXIDE 25.3 mmol/L (21-32); CHLORIDE 103 mmol/L (98-107); SODIUM 139 mmol/L (136-145); eGFR BLACK RACES > 60 (>60); eGFR NON BLACK RACES 58 (>60)
[2017-05-22] MEDS ORDERED: ADENOCARD INJ 6 MG IVP ONE (14:07)
[2017-05-22 14:13] LABS: PLATELET MORPHOLOGY COMMENT NORMAL (NORMAL); POIKILOCYTOSIS SLIGHT
[2017-05-22 14:40] LABS: ABG BASE EXCESS 1.6 mmol/L (-2.0-2.0); ABG HCO3 24.2 mmol/L (22-26)
[2017-05-22 14:41] LABS: ABG ALLEN TEST pos
[2017-05-22] MEDS ORDERED: OFIRMEV IV 1000 MG VIAL 500 MG/50 ML VIAL IV ONE (15:18)
[2017-05-22] MEDS ORDERED: CARDIZEM INJ 125 MG VIAL 125 MG in NS 100 ML IV 100 ML IV PRN (15:55)
[2017-05-22] MEDS ORDERED: TUSSIONEX PENNKINETIC SUSP PO PRN (15:57)
[2017-05-22] MEDS ORDERED: CARDIZEM INJ 125 MG VIAL ONE (16:01)
[2017-05-22] MEDS ORDERED: NS 100 ML IV 100 ML IV ONE ×2 (16:02→21:28)
[2017-05-22] MEDS: ROBITUSSIN DM PO SCH ×2 (17:23→21:14)
[2017-05-22] MEDS: NS 1/2 1000 ML IV 1,000 ML IV SCH (17:23)
[2017-05-22] MEDS ORDERED: NS 1/2 1000 ML IV 1,000 ML IV ONE (17:23)
[2017-05-22] MEDS: XOPENEX 1.25 MG/3 ML NEBULE NEB SCH ×2 (17:25→20:48)
[2017-05-22] MEDS ORDERED: TYLENOL 325 MG TAB PO PRN (17:47)
[2017-05-22] MEDS ORDERED: NORCO 5/325 MG TAB PO PRN (17:47)
[2017-05-22] MEDS ORDERED: NS 100 ML IV + SPIKE MINIBAG* 100 ML IV ONE (20:59)
[2017-05-22] MEDS: VIBRAMYCIN 100 MG in NS 100 ML IV + SPIKE MINIBAG* 100 ML IV SCH (21:10)
[2017-05-22] MEDS: GEODON PO SCH (21:11)
[2017-05-22] MEDS: VALPROIC ACID PO SCH (21:11)
[2017-05-22] MEDS: FLONASE NASAL SPRAY ENOSTRIL SCH (21:11)
[2017-05-22] MEDS: LASIX PO SCH (21:13)
[2017-05-22] MEDS: NAMENDA TAB 10 MG PO SCH (21:14)
[2017-05-22] MEDS: ARICEPT TAB 10 MG PO SCH (21:14)
[2017-05-22] MEDS: ZANTAC PO SCH (21:14)
[2017-05-22] MEDS: ELIQUIS PO SCH (21:15)
[2017-05-22] MEDS: LOPRESSOR TAB 25 MG PO SCH (21:15)
[2017-05-23] MEDS: VALPROIC ACID PO SCH ×3 (05:39→20:59)
[2017-05-23] MEDS: NS 1/2 1000 ML IV 1,000 ML IV SCH ×2 (05:40→20:39)
[2017-05-23] MEDS ORDERED: NS 1/2 1000 ML IV 1,000 ML IV ONE ×2 (05:41→22:11)
[2017-05-23 05:46] LABS: ALANINE AMINOTRANSFERASE 15 Units/L (12-78); ALBUMIN 2.9 g/dL (3.4-5.0); ALKALINE PHOSPHATASE 48 Units/L (46-116); ASPARTATE AMINO TRANSFERASE 18 Units/L (15-37); BLOOD UREA NITROGEN 19 mg/dL (7-18); CALCIUM 8.3 mg/dL (8.5-10.1); CARBON DIOXIDE 25.6 mmol/L (21-32); CHLORIDE 108 mmol/L (98-107); COR CA(FOR HYPOALB) 9.2 mg/dL (8.5-10.1); CREATININE 1.15 mg/dL (0.70-1.30); SODIUM 143 mmol/L (136-145); TOTAL PROTEIN 6.6 g/dL (6.4-8.2); eGFR BLACK RACES > 60 (>60); eGFR NON BLACK RACES > 60 (>60)
[2017-05-23 06:13] LABS: BASOPHILS # (AUTO) 0.1 X10^3/uL (0.0-0.1); BASOPHILS % (AUTO) 0.6 % (0.2-1.0); EOSINOPHILS # (AUTO) 0.2 x10^3/uL (0.0-0.2); EOSINOPHILS % (AUTO) 1.8 % (0.9-2.9); HEMATOCRIT 29.5 % (42.0-54.0); HEMOGLOBIN 9.6 g/dL (13.5-18.0); LYMPHOCYTES # (AUTO) 2.3 X10^3/uL (1.3-2.9); LYMPHOCYTES % (AUTO) 18.1 % (21.0-51.0); MEAN CORPUSCULAR HEMOGLOBIN 25.7 pg (27.0-34.0); MEAN CORPUSCULAR HGB CONC 32.7 g/dL (33.0-35.0); MEAN CORPUSCULAR VOLUME 78.7 fL (80.0-100.0); MEAN PLATELET VOLUME 8.8 fL (7.4-11.0); MONOCYTES # (AUTO) 1.2 x10^3/uL (0.3-0.8); MONOCYTES % (AUTO) 9.6 % (0.0-13.0); NEUTROPHILS % (AUTO) 69.9 % (42.0-75.0); PLATELET COUNT 140 X10^3/uL (150.0-450.0); RED BLOOD COUNT 3.74 X10^6/uL (4.7-6.0); RED CELL DISTRIBUTION WIDTH 15.2 % (11.6-16.5); WHITE BLOOD COUNT 12.9 X10^3/uL (3.6-10.0)
[2017-05-23 06:27] LABS: PLATELET MORPHOLOGY COMMENT NORMAL (NORMAL)
--- NOTE | 2017-05-23 06:51 | RAD ---
HISTORY: Decreased O2 sats Study: Chest AP portable Comparison: 05/22/2017 Findings: The heart is upper limits normal in size. No congestive heart failure is noted. The lungs are hypo in flated but free of acute infiltrates. No pleural effusions are identified. The bony thorax is unremar kable. IMPRESSION: Lungs hypo inflated but clear Reported By:
[2017-05-23] MEDS: SINGULAIR TAB 10 MG PO SCH (08:12)
[2017-05-23] MEDS: FLONASE NASAL SPRAY ENOSTRIL SCH ×2 (08:12→20:40)
[2017-05-23] MEDS: GEODON PO SCH ×3 (08:12→20:38)
[2017-05-23] MEDS: NAMENDA TAB 10 MG PO SCH ×2 (08:12→20:37)
[2017-05-23] MEDS: ELIQUIS PO SCH ×2 (08:12→20:37)
[2017-05-23] MEDS: VIBRAMYCIN 100 MG in NS 100 ML IV + SPIKE MINIBAG* 100 ML IV SCH (08:12)
[2017-05-23] MEDS: EFFEXOR XR 150 MG CAP PO SCH (08:12)
[2017-05-23] MEDS: ZANTAC PO SCH ×2 (08:13→20:39)
[2017-05-23] MEDS: ROBITUSSIN DM PO SCH ×4 (08:13→20:39)
[2017-05-23] MEDS: LASIX PO SCH ×2 (08:32→20:38)
[2017-05-23] MEDS: LOPRESSOR TAB 25 MG PO SCH ×2 (08:32→20:37)
[2017-05-23] MEDS: XOPENEX 1.25 MG/3 ML NEBULE NEB SCH ×4 (09:38→21:57)
[2017-05-23] MEDS: SNACK - Diabetic Appropriate PO SCH ×2 (09:40→20:39)
[2017-05-23] MEDS: CARDIZEM CD 240 MG PO SCH (09:45)
[2017-05-23] MEDS: SOLU-Medrol 40 MG VIAL IVP SCH ×3 (09:46→20:59)
[2017-05-23] MEDS: PROTONIX INJ 40 MG VIAL IVP SCH ×2 (09:46→20:38)
[2017-05-23] MEDS ORDERED: MORPHINE SULFATE INJ 2 MG INJ IVP PRN (14:12)
[2017-05-23] MEDS ORDERED: LASIX IVP ONE (14:13)
[2017-05-23 14:32] LABS: ABG BASE EXCESS -1.8 mmol/L (-2.0-2.0); ABG HCO3 22.1 mmol/L (22-26)
[2017-05-23 14:33] LABS: ABG ALLEN TEST POS
--- NOTE | 2017-05-23 14:58 | RAD ---
HISTORY: Shortness of breath Study: Chest AP portable Comparison: 05/23/2017 6:24 a.m. Findings: The heart is upper limits normal in size. The karla are normal. The lungs are somewhat better inflated than on the prior examination. There has been interval development of a patchy infiltrate in the lef t lower lobe most consistent with pneumonia. No pleural effusions are identified. The bony thorax is unremarkable. IMPRESSION: Interval development of a left lower lobe infiltrate since the film earlier the same day. Most consis tent with pneumonia Reported By:
[2017-05-23] MEDS ORDERED: BUTT CREAM (COMPOUND) TOP PRN (15:22)
[2017-05-23] MEDS: FORTAZ or TAZICEF INJ 1 GM in NS 100 ML IV + SPIKE MINIBAG* 100 ML IV SCH ×2 (16:50→20:59)
--- NOTE | 2017-05-23 17:00 | DR.H&P ---
H&P - History & Physical for Day of: H&P Date: 05/22/17 - Chief Complaint Chief Complaint: COUGH, SHORT OF BREATH, WHEEZING - Allergies Allergies/Adverse Reactions: Allergies Allergy/AdvReac Type Severity Reaction Status Date / Time No Known Drug Allergies Allergy Verified 09/09/16 12:13 - History of Present Illness History of Present Illness: IS A 72 YEAR OLD PATIENT OF OURS WHO PRESENTED TO THE EMERGENCY ROOM TODAY WITH COMPLAINTS OF COUGH, WHEEZING, AND SHORTNESS OF BREATH. PATIENT RESIDES AT [facility]. HE IS STATUS POST COLONOSCOPY TODAY BY DUE TO BLOOD IN STOOLS AND IRREGULAR BOWEL HABITS. POSTOPERATIVE DIAGNOSES WERE MILD DIVERTICULOSIS. STAFF REPORTS THAT AFTER RETURNING TO THE ASSISTED FROM PROCEDURE, PATIENT ATE LUNCH AND THEN BEGAN COUGHING, WHEEZING, AND VOMITING. ON ARRIVAL TO THE EMERGENCY ROOM, SATURATIONS WERE NOTED TO BE 79% ON 3 LITERS OXYGEN VIA NASAL CANNULA. PATIENT RECEIVED A NEBULIZER TREATMENT AT THE ASSISTED. ON ARRIVAL, VITALS WERE 98.3 -147-25-79%-133/88. LABS WERE OBTAINED. ABNORMAL LAB VALUES INCLUDE THE FOLLOWING: WBC 15.8, HGB 12.2, HCT 36.7, GLUCOSE 100. AN ABG REVEALED ABG PH 7.500, PC02 31.0, P02 64, HC03 24.2. A CHEST XRAY WAS OBTAINED AND REVEALED MINIMALLY PROMINENT LUNG MARKINGS IN THE LEFT LUNG BASE. THIS MAY BE DUE TO FOCAL INTERSTITIAL/ALVEOLAR INFILTRATE OR ATELECTATIC CHANGE. EKG OBTAINED AND REVEALED EXTREME TACHYCARDIA WITH WIDE COMPLEX. HR 149. PATIENT WAS ADMITTED TO THE HOSPITAL FOR FURTHER EVALUATION AND TREATMENT OF ASPIRATION PNEUMONIA AND TACHYCARDIA. HE WAS STARTED ON DOXYCYCLINE, NORMAL SALINE AT 75ML/HR, RESPIRATORY TREATMENTS, AND A CARDIZEM DRIP. WE PLAN TO FOLLOW UP WITH AM LABS AND CHEST XRAY AND CONTINUE TO MONITOR PATIENT. - Past Medical History Past Medical History: COPD, CVA, Depression, GERD, Hypertension Additional Medical History: Prostate Cancer, Chronic Cholelithiasis - Past Surgical History Surgical History: Cholecystectomy, Ortho Surgery Additional Surgical History: Prostatectomy, Hiatal Hernia Repair, Left Knee - Family History Family Medical History: Cancer - Social History Does patient currently use any type of tobacco product: No Have you used tobacco products in the last 12 months: No Type of Tobacco Use: None Does any household member use tobacco: No Alcohol Use: None Drug Use: None - Medications Home Medications: Fluticasone Nasal [place] [FLONASE NASAL SPRAY *] 1 spray [place] BID 05/22/17 [ History Confirmed 05/22/17] - Review of Systems Constitutional: Weakness. denies: Fever Eyes: No Symptoms Reported ENT: No Symptoms Reported Respiratory: Cough, Shortness of Breath, Wheezing Cardiovascular: No Symptoms Reported Gastrointestinal: No Symptoms Reported Genitourinary: No Symptoms Reported Musculoskeletal: No Symptoms Reported Skin: No Symptoms Reported Neurological: Weakness - Physical Exam Vital Signs: Temperature 98.6 F Pulse Rate [Apical] 85 Pulse Rate [Left Radial] 152 Pulse Rate 91 Respiratory Rate 27 Blood Pressure [Left Arm] 116/58 Blood Pressure [Right Arm] 118/61 Blood Pressure 133/88 O2 Sat by Pulse Oximetry 98 Oriented: Normal Eyes: Normal Ear: Normal Nose: Normal Throat: Normal Respiratory: Wheezes Throughout Cardiovascular: Tachycardia : Normal Auscultation: Bowel Sounds: Normal Palpation: Normal Tenderness: Normal Skin: Normal Musculoskeletal: Normal Psychiatric: Normal Mood Description: Calm Affect: Normal Speech Pattern: Aphasic - Assessment/Plan (1) Aspiration pneumonia Qualifiers: Aspiration pneumonia type: due to gastric secretions Laterality: left Lung location: lower lobe of lung Qualified Code(s): J69.0 - Pneumonitis due to inhalation of food and vomit Status: Acute Plan: DOXYCLYCLINE, RESPIRATORY TREATMENTS, SUPPLEMENTAL OXYGEN, CONTINUE TO MONITOR (2) Sinus tachycardia Status: Acute Plan: DOUGHNUT GLAZIER, CARDIZEM DRIP, SUPPLEMENTAL OXYGEN, CONTINUE TO MONITOR
--- NOTE | 2017-05-23 17:11 | PCM.PROG ---
Progress Note - Progress Note for Day of Date: 05/23/17 - Subjective Subjective: IS BEING TREATED FOR ASPIRATION PNEUMONIA AND TACHYCARDIA. TODAY, HE IS ALERT AND ORIENTED, LYING IN BED ON MORNING ROUNDS. ON EXAMINATION, HE CONTINUES WITH SINUS TACHYCARDIA. HEART RATE IS NOTED TO BE 105 ON THE SPRAY MAKER. BILATERAL LUNGS CONTINUE WITH SCATTERED WHEEZING AND RHONCHI. HE IS CURRENTLY UTILIZING OXYGEN VIA NASAL CANNULA AT 2L/MIN. ABDOMEN IS ROUND, SOFT, AND NON-TENDER WITH NORMAL BOWEL SOUNDS NOTED IN ALL QUADRANTS. HIS VITAL SIGNS THIS MORNING ARE 100.7, 105, 24-99%-115/53. A CHEST XRAY WAS OBTAINED TODAY AND REVEALED INTERVAL DEVELOPMENT OF A LEFT LOWER LOBE INFILTRATE. MOST CONSISTENT WITH PNEUMONIA. BLOOD CULTURES AND SPUTUM CULTURE ARE PENDING. TODAY, WE PLAN TO DISCONTINUE THE DOXYCYCLINE AND START LEVAQUIN 750MG IV DAILY, FORTAZ 1GM IV Q8H, AND SOLU-MEDROL 20MG IV Q8H. WE WILL ALSO START CARDIZEM CD 240MG PO DAILY AND DISCONTINUE TH CARDIZEM DRIP. OTHERWISE, WE PLAN TO FOLLOW UP WITH AM LABS AND CHEST XRAY AND CONTINUE TO MONITOR PATIENT. - Past Medical Family Social History Past Med/Fam/Surg Hx: No changes since H&P Allergies: Allergies No Known Drug Allergies Allergy (Verified 09/09/16 12:13) - Review of Systems ROS: No change since H&P - Vital Signs and I&O's Vital Signs: Temperature 98.6 F Pulse Rate [Apical] 96 Pulse Rate [Left Radial] 152 Pulse Rate 91 Respiratory Rate 26 Blood Pressure [Left Arm] 110/57 Blood Pressure [Right Arm] 118/61 Blood Pressure 133/88 O2 Sat by Pulse Oximetry 100 Intake and Output: Intake & Output 05/21/17 05/22/17 05/23/17 05/24/17 11:59 11:59 11:59 11:59 Intake Total 1994 1243 Output Total 0 Balance 1994 1243 - Physical Exam Oriented: Normal Eyes: Normal Ear: Normal Nose: Normal Throat: Normal Respiratory: Right, Left, Wheezes, Rhonchi Cardiovascular: Tachycardia : Normal Auscultation: Bowel Sounds: Normal Palpation: Normal Tenderness: Normal Skin: Normal Musculoskeletal: Normal Psychiatric: Normal Mood Description: Calm Affect: Normal Speech Pattern: Aphasic - Laboratory and Diagnostics Result Diagrams: 05/23/17 07:00 05/23/17 04:05 Labs: 05/23/17 10:54 Sputum - Expectorated Sputum - Final Laboratory WBC 12.9 X10^3/uL (3.6-10.0) H 05/23/17 07:00 RBC 3.74 X10^6/uL (4.7-6.0) L 05/23/17 07:00 Hgb 9.6 g/dL (13.5-18.0) L D 05/23/17 07:00 Hct 29.5 % (42.0-54.0) L 05/23/17 07:00 MCV 78.7 fL (80.0-100.0) L 05/23/17 07:00 MCH 25.7 pg (27.0-34.0) L 05/23/17 07:00 MCHC 32.7 g/dL (33.0-35.0) L 05/23/17 07:00 RDW 15.2 % (11.6-16.5) 05/23/17 07:00 Plt Count 140 X10^3/uL (150.0-450.0) L 05/23/17 07:00 Plt Count Comment Adequate (ADEQUATE) 05/23/17 07:00 MPV 8.8 fL (7.4-11.0) 05/23/17 07:00 Neut % (Auto) 69.9 % (42.0-75.0) 05/23/17 07:00 Lymph % (Auto) 18.1 % (21.0-51.0) L 05/23/17 07:00 [place] % (Auto) 9.6 % (0.0-13.0) 05/23/17 07:00 Eos % (Auto) 1.8 % (0.9-2.9) 05/23/17 07:00 Baso % (Auto) 0.6 % (0.2-1.0) 05/23/17 07:00 Neut # (Auto) 9.0 x10^3/uL (2.2-4.8) H 05/23/17 07:00 Lymph # (Auto) 2.3 X10^3/uL (1.3-2.9) 05/23/17 07:00 [place] # (Auto) 1.2 x10^3/uL (0.3-0.8) H 05/23/17 07:00 Eos # (Auto) 0.2 x10^3/uL (0.0-0.2) 05/23/17 07:00 Baso # (Auto) 0.1 X10^3/uL (0.0-0.1) 05/23/17 07:00 Absolute Nucleated RBC 0.1 /100WBC 05/23/17 07:00 Total Counted 100 05/23/17 07:00 Neutrophils % (Manual) 70 % (39-76) 05/23/17 07:00 Lymphocytes % (Manual) 19 % (13-43) 05/23/17 07:00 Monocytes % (Manual) 9 % (4-9) 05/23/17 07:00 Eosinophils % (Manual) 2 % (0-6) 05/23/17 07:00 Plt Morphology Comment Normal (NORMAL) 05/23/17 07:00 RBC Morphology Normal (NORMAL) 05/23/17 07:00 Poikilocytosis Slight A 05/22/17 13:37 Sample Site Left radial 05/23/17 14:22 ABG pH 7.420 (7.35-7.45) 05/23/17 14:22 ABG pCO2 34.0 mmHg (35.0-45.0) L 05/23/17 14:22 ABG pO2 78.0 mmHg (80.0-100.0) L 05/23/17 14:22 ABG HCO3 22.1 mmol/L (22-26) 05/23/17 14:22 ABG O2 Saturation 96.0 % (90-100) 05/23/17 14:22 ABG Base Excess -1.8 mmol/L (-2.0-2.0) 05/23/17 14:22 Jeremie Test Pos 05/23/17 14:22 A-a Gradient 108.0 mmHg 05/23/17 14:22 FiO2 32.000 05/23/17 14:22 Blood Gas Comments Carmella well aw 05/23/17 14:22 Sodium 143 mmol/L (136-145) 05/23/17 04:05 Corrected Sodium TNP 05/23/17 04:05 Potassium 3.7 mmol/L (3.5-5.1) 05/23/17 04:05 Chloride 108 mmol/L (98-107) H 05/23/17 04:05 Carbon Dioxide 25.6 mmol/L (21-32) 05/23/17 04:05 BUN 19 mg/dL (7-18) H 05/23/17 04:05 Creatinine 1.15 mg/dL (0.70-1.30) 05/23/17 04:05 Est GFR (MDRD) Af Amer > 60 (>60) 05/23/17 04:05 Est GFR (MDRD) Non-Af > 60 (>60) 05/23/17 04:05 Glucose 61 mg/dL (65-99) L 05/23/17 04:05 Calcium 8.3 mg/dL (8.5-10.1) L 05/23/17 04:05 Corrected Calcium 9.2 mg/dL (8.5-10.1) 05/23/17 04:05 Total Bilirubin 0.80 mg/dL (0.2-1.0) 05/23/17 04:05 AST 18 Units/L (15-37) 05/23/17 04:05 ALT 15 Units/L (12-78) 05/23/17 04:05 Alkaline Phosphatase 48 Units/L (46-116) 05/23/17 04:05 C-Reactive Protein 1.50 mg/L (0-3.0) 05/22/17 13:37 Total Protein 6.6 g/dL (6.4-8.2) 05/23/17 04:05 Albumin 2.9 g/dL (3.4-5.0) L 05/23/17 04:05 Globulin 3.7 g/dL (2.5-4.5) 05/23/17 04:05 Albumin/Globulin Ratio 0.8 Ratio (1.1-2.1) L 05/23/17 04:05 - Plan (1) Aspiration pneumonia Status: Acute Qualifiers: Aspiration pneumonia type: due to gastric secretions Laterality: left Lung location: lower lobe of lung Qualified Code(s): J69.0 - Pneumonitis due to inhalation of food and vomit Plan: LEVAQUIN 750MG IV DAILY, FORTAZ 1GM IV Q8H, RESPIRATORY TREATMENTS, SUPPLEMENTAL OXYGEN, CONTINUE TO MONITOR (2) Sinus tachycardia Status: Acute Plan: CARDIZEM CD 240MG PO DAILY, SUPPLEMENTAL OXYGEN, CONTINUE TO MONITOR
[2017-05-23] MEDS: LEVAQUIN PREMIX IV 750 MG 750 MG/150 ML BAG IV SCH (17:53)
[2017-05-23] MEDS: ARICEPT TAB 10 MG PO SCH (20:37)
[2017-05-24] MEDS: SOLU-Medrol 40 MG VIAL IVP SCH ×3 (05:03→22:07)
[2017-05-24] MEDS: VALPROIC ACID PO SCH ×3 (05:03→22:39)
[2017-05-24] MEDS: FORTAZ or TAZICEF INJ 1 GM in NS 100 ML IV + SPIKE MINIBAG* 100 ML IV SCH ×3 (05:03→22:07)
[2017-05-24 05:47] LABS: ALANINE AMINOTRANSFERASE 13 Units/L (12-78); ALBUMIN 2.7 g/dL (3.4-5.0); ALKALINE PHOSPHATASE 39 Units/L (46-116); ASPARTATE AMINO TRANSFERASE 13 Units/L (15-37); BLOOD UREA NITROGEN 23 mg/dL (7-18); CALCIUM 8.7 mg/dL (8.5-10.1); CARBON DIOXIDE 23.5 mmol/L (21-32); CHLORIDE 109 mmol/L (98-107); COR CA(FOR HYPOALB) 9.7 mg/dL (8.5-10.1); COR NA(FOR HYPERGLY) 144 mmol/L (136-145); SODIUM 143 mmol/L (136-145); TOTAL PROTEIN 6.7 g/dL (6.4-8.2); eGFR BLACK RACES > 60 (>60); eGFR NON BLACK RACES 58 (>60)
[2017-05-24 05:53] LABS: BASOPHILS % (AUTO) 0.1 % (0.2-1.0); EOSINOPHILS % (AUTO) 0.1 % (0.9-2.9); HEMATOCRIT 28.8 % (42.0-54.0); HEMOGLOBIN 9.4 g/dL (13.5-18.0); LYMPHOCYTES # (AUTO) 0.4 X10^3/uL (1.3-2.9); LYMPHOCYTES % (AUTO) 6.2 % (21.0-51.0); MEAN CORPUSCULAR HEMOGLOBIN 25.9 pg (27.0-34.0); MEAN CORPUSCULAR HGB CONC 32.6 g/dL (33.0-35.0); MEAN CORPUSCULAR VOLUME 79.5 fL (80.0-100.0); MEAN PLATELET VOLUME 8.9 fL (7.4-11.0); MONOCYTES # (AUTO) 0.4 x10^3/uL (0.3-0.8); MONOCYTES % (AUTO) 5.7 % (0.0-13.0); NEUTROPHILS # (AUTO) 5.6 x10^3/uL (2.2-4.8); NEUTROPHILS % (AUTO) 87.9 % (42.0-75.0); PLATELET COUNT 125 X10^3/uL (150.0-450.0); RED BLOOD COUNT 3.62 X10^6/uL (4.7-6.0); RED CELL DISTRIBUTION WIDTH 15.8 % (11.6-16.5); WHITE BLOOD COUNT 6.4 X10^3/uL (3.6-10.0)
[2017-05-24 06:10] LABS: PLATELET MORPHOLOGY COMMENT NORMAL (NORMAL)
--- NOTE | 2017-05-24 07:15 | RAD ---
HISTORY: Decreased O2 sat Study: Chest AP portable Comparison: 05/23/2017 Findings: The heart is within normal limits in size. The karla are normal. The lungs are mildly hypo inflated. T he right lung and left upper lung desai are clear. There is minimal residual left basilar lung infil trate present. The bony thorax is unremarkable. IMPRESSION: Minimal residual left basilar lung infiltrate Hypo inflation Reported By:
[2017-05-24] MEDS: XOPENEX 1.25 MG/3 ML NEBULE NEB SCH ×4 (08:54→21:53)
[2017-05-24] MEDS: LEVAQUIN PREMIX IV 750 MG 750 MG/150 ML BAG IV SCH (08:55)
[2017-05-24] MEDS: PROTONIX INJ 40 MG VIAL IVP SCH ×2 (08:55→22:06)
[2017-05-24] MEDS: LOPRESSOR TAB 25 MG PO SCH ×2 (08:57→22:03)
[2017-05-24] MEDS: ROBITUSSIN DM PO SCH ×4 (08:57→22:06)
[2017-05-24] MEDS: ZANTAC PO SCH ×2 (08:57→22:06)
[2017-05-24] MEDS: SINGULAIR TAB 10 MG PO SCH (08:57)
[2017-05-24] MEDS: GEODON PO SCH ×2 (08:57→22:39)
[2017-05-24] MEDS: EFFEXOR XR 150 MG CAP PO SCH (08:58)
[2017-05-24] MEDS: LASIX PO SCH ×2 (08:58→22:02)
[2017-05-24] MEDS: CARDIZEM CD 240 MG PO SCH (08:59)
[2017-05-24] MEDS: NAMENDA TAB 10 MG PO SCH ×2 (08:59→22:04)
[2017-05-24] MEDS: ELIQUIS PO SCH ×2 (08:59→22:02)
[2017-05-24] MEDS: FLONASE NASAL SPRAY ENOSTRIL SCH ×2 (09:00→22:02)
[2017-05-24] MEDS: NS 1/2 1000 ML IV 1,000 ML IV SCH (10:59)
--- NOTE | 2017-05-24 19:25 | PCM.PROG ---
Progress Note - Progress Note for Day of Date: 05/24/17 - Subjective Subjective: IS BEING TREATED FOR ASPIRATION PNEUMONIA. TODAY, HE IS ALERT AND ORIENTED, LYING IN BED ON MORNING ROUNDS. HE CONTINUES WITH SHORTNESS OF BREATH AND LABORED BREATHING. ON EXAMINATION, HEART IS REGULAR IN RATE AND RHYTHM. BILATERAL LUNGS CONTINUE WITH SCATTERED WHEEZING AND RHONCHI. HE IS CURRENTLY UTILIZING OXYGEN VIA NASAL CANNULA AT 2L/MIN. ABDOMEN IS ROUND, SOFT, AND NON-TENDER WITH NORMAL BOWEL SOUNDS NOTED IN ALL QUADRANTS. HIS VITAL SIGNS THIS MORNING ARE 99.4-85-20-100%-111/57. ABNORMAL LAB VALUES INCLUDE TH FOLLOWING: WBC DECREASED FROM 12.9 TO 6.4, RBC 3.62, HGB 9.4, HCT 28.8, CHLORIDE 109, BUN 23, GLUCOSE 122, AST 13, ALK PHOS 39, ALBUMIN 2.7. A CHEST XRAY WAS OBTAINED TODAY AND REVEALED MINIMAL RESIDUAL LEFT BASILAR LUNG INFILTRATE. BLOOD CULTURES AND SPUTUM CULTURE ARE PENDING. TODAY, WE PLAN TO INCREASE HIS SOLU-MEDROL TO 40MG IV Q8H. OTHERWISE, WE PLAN TO FOLLOW UP WITH AM LABS AND CHEST XRAY AND CONTINUE TO MONITOR PATIENT. - Past Medical Family Social History Past Med/Fam/Surg Hx: No changes since H&P Allergies: Allergies No Known Drug Allergies Allergy (Verified 09/09/16 12:13) - Review of Systems ROS: No change since H&P - Vital Signs and I&O's Vital Signs: Temperature 98.6 F Pulse Rate [Apical] 83 Pulse Rate [Left Radial] 152 Pulse Rate 83 Respiratory Rate 17 Blood Pressure [Left Arm] 127/78 Blood Pressure [Right Arm] 118/61 Blood Pressure 133/88 O2 Sat by Pulse Oximetry 100 Intake and Output: Intake & Output 05/22/17 05/23/17 05/24/17 05/25/17 11:59 11:59 11:59 11:59 Intake Total 1994 2463 1260 Output Total 0 0 Balance 1994 2463 1260 - Physical Exam Oriented: Normal Eyes: Normal Ear: Normal Nose: Normal Throat: Normal Respiratory: Right, Left, Wheezes, Rhonchi Cardiovascular: Tachycardia : Normal Auscultation: Bowel Sounds: Normal Palpation: Normal Tenderness: Normal Skin: Normal Musculoskeletal: Normal Psychiatric: Normal Mood Description: Calm Affect: Normal Speech Pattern: Aphasic - Laboratory and Diagnostics Result Diagrams: 05/24/17 04:10 05/24/17 04:10 Labs: 05/23/17 10:54 Sputum - Expectorated Sputum Sputum Culture - Preliminary 05/23/17 10:54 Sputum - Expectorated Sputum - Final 05/22/17 13:37 Blood Blood Culture - Preliminary 05/22/17 13:33 Blood Blood Culture - Preliminary Laboratory WBC 6.4 X10^3/uL (3.6-10.0) 05/24/17 04:10 RBC 3.62 X10^6/uL (4.7-6.0) L 05/24/17 04:10 Hgb 9.4 g/dL (13.5-18.0) L 05/24/17 04:10 Hct 28.8 % (42.0-54.0) L 05/24/17 04:10 MCV 79.5 fL (80.0-100.0) L 05/24/17 04:10 MCH 25.9 pg (27.0-34.0) L 05/24/17 04:10 MCHC 32.6 g/dL (33.0-35.0) L 05/24/17 04:10 RDW 15.8 % (11.6-16.5) 05/24/17 04:10 Plt Count 125 X10^3/uL (150.0-450.0) L 05/24/17 04:10 Plt Count Comment Decreased (ADEQUATE) 05/24/17 04:10 MPV 8.9 fL (7.4-11.0) 05/24/17 04:10 Neut % (Auto) 87.9 % (42.0-75.0) H 05/24/17 04:10 Lymph % (Auto) 6.2 % (21.0-51.0) L 05/24/17 04:10 [place] % (Auto) 5.7 % (0.0-13.0) 05/24/17 04:10 Eos % (Auto) 0.1 % (0.9-2.9) L 05/24/17 04:10 Baso % (Auto) 0.1 % (0.2-1.0) L 05/24/17 04:10 Neut # (Auto) 5.6 x10^3/uL (2.2-4.8) H 05/24/17 04:10 Lymph # (Auto) 0.4 X10^3/uL (1.3-2.9) L 05/24/17 04:10 [place] # (Auto) 0.4 x10^3/uL (0.3-0.8) 05/24/17 04:10 Eos # (Auto) 0.0 x10^3/uL (0.0-0.2) 05/24/17 04:10 Baso # (Auto) 0.0 X10^3/uL (0.0-0.1) 05/24/17 04:10 Absolute Nucleated RBC 0.1 /100WBC 05/24/17 04:10 Total Counted 100 05/23/17 07:00 Neutrophils % (Manual) 70 % (39-76) 05/23/17 07:00 Lymphocytes % (Manual) 19 % (13-43) 05/23/17 07:00 Monocytes % (Manual) 9 % (4-9) 05/23/17 07:00 Eosinophils % (Manual) 2 % (0-6) 05/23/17 07:00 Plt Morphology Comment Normal (NORMAL) 05/24/17 04:10 RBC Morphology Normal (NORMAL) 05/24/17 04:10 Poikilocytosis Slight A 05/22/17 13:37 Sample Site Left radial 05/23/17 14:22 ABG pH 7.420 (7.35-7.45) 05/23/17 14:22 ABG pCO2 34.0 mmHg (35.0-45.0) L 05/23/17 14:22 ABG pO2 78.0 mmHg (80.0-100.0) L 05/23/17 14:22 ABG HCO3 22.1 mmol/L (22-26) 05/23/17 14:22 ABG O2 Saturation 96.0 % (90-100) 05/23/17 14:22 ABG Base Excess -1.8 mmol/L (-2.0-2.0) 05/23/17 14:22 Jeremie Test Pos 05/23/17 14:22 A-a Gradient 108.0 mmHg 05/23/17 14:22 FiO2 32.000 05/23/17 14:22 Blood Gas Comments Carmella well aw 05/23/17 14:22 Sodium 143 mmol/L (136-145) 05/24/17 04:10 Corrected Sodium 144 mmol/L (136-145) 05/24/17 04:10 Potassium 4.4 mmol/L (3.5-5.1) 05/24/17 04:10 Chloride 109 mmol/L (98-107) H 05/24/17 04:10 Carbon Dioxide 23.5 mmol/L (21-32) 05/24/17 04:10 BUN 23 mg/dL (7-18) H 05/24/17 04:10 Creatinine 1.30 mg/dL (0.70-1.30) 05/24/17 04:10 Est GFR (MDRD) Af Amer > 60 (>60) 05/24/17 04:10 Est GFR (MDRD) Non-Af 58 (>60) L 05/24/17 04:10 Glucose 122 mg/dL (65-99) H 05/24/17 04:10 Calcium 8.7 mg/dL (8.5-10.1) 05/24/17 04:10 Corrected Calcium 9.7 mg/dL (8.5-10.1) 05/24/17 04:10 Total Bilirubin 0.50 mg/dL (0.2-1.0) 05/24/17 04:10 AST 13 Units/L (15-37) L 05/24/17 04:10 ALT 13 Units/L (12-78) 05/24/17 04:10 Alkaline Phosphatase 39 Units/L (46-116) L 05/24/17 04:10 C-Reactive Protein 1.50 mg/L (0-3.0) 05/22/17 13:37 Total Protein 6.7 g/dL (6.4-8.2) 05/24/17 04:10 Albumin 2.7 g/dL (3.4-5.0) L 05/24/17 04:10 Globulin 4.0 g/dL (2.5-4.5) 05/24/17 04:10 Albumin/Globulin Ratio 0.7 Ratio (1.1-2.1) L 05/24/17 04:10 - Plan (1) Aspiration pneumonia Status: Acute Qualifiers: Aspiration pneumonia type: due to gastric secretions Laterality: left Lung location: lower lobe of lung Qualified Code(s): J69.0 - Pneumonitis due to inhalation of food and vomit Plan: LEVAQUIN 750MG IV DAILY, FORTAZ 1GM IV Q8H, SOLU-MEDROL 40MG IV Q8H, RESPIRATORY TREATMENTS, SUPPLEMENTAL OXYGEN, CONTINUE TO MONITOR (2) Sinus tachycardia Status: Resolved Plan: CARDIZEM CD 240MG PO DAILY, SUPPLEMENTAL OXYGEN, CONTINUE TO MONITOR
[2017-05-24] MEDS: SNACK - Diabetic Appropriate PO SCH ×2 (20:40→22:06)
[2017-05-24] MEDS: ARICEPT TAB 10 MG PO SCH (22:01)
[2017-05-25] MEDS: SOLU-Medrol 40 MG VIAL IVP SCH (05:49)
[2017-05-25] MEDS: FORTAZ or TAZICEF INJ 1 GM in NS 100 ML IV + SPIKE MINIBAG* 100 ML IV SCH (05:49)
[2017-05-25] MEDS: NS 1/2 1000 ML IV 1,000 ML IV SCH (05:49)
[2017-05-25] MEDS: VALPROIC ACID PO SCH (05:50)
[2017-05-25 06:07] LABS: BASOPHILS % (AUTO) 0.2 % (0.2-1.0); HEMATOCRIT 26.6 % (42.0-54.0); HEMOGLOBIN 8.9 g/dL (13.5-18.0); LYMPHOCYTES # (AUTO) 0.4 X10^3/uL (1.3-2.9); LYMPHOCYTES % (AUTO) 8.8 % (21.0-51.0); MEAN CORPUSCULAR HEMOGLOBIN 26.3 pg (27.0-34.0); MEAN CORPUSCULAR HGB CONC 33.5 g/dL (33.0-35.0); MEAN CORPUSCULAR VOLUME 78.7 fL (80.0-100.0); MEAN PLATELET VOLUME 8.3 fL (7.4-11.0); MONOCYTES # (AUTO) 0.2 x10^3/uL (0.3-0.8); MONOCYTES % (AUTO) 4.2 % (0.0-13.0); NEUTROPHILS # (AUTO) 4.3 x10^3/uL (2.2-4.8); NEUTROPHILS % (AUTO) 86.8 % (42.0-75.0); PLATELET COUNT 131 X10^3/uL (150.0-450.0); RED BLOOD COUNT 3.38 X10^6/uL (4.7-6.0)
[2017-05-25 06:42] LABS: ALANINE AMINOTRANSFERASE 14 Units/L (12-78); ALBUMIN 2.5 g/dL (3.4-5.0); ALKALINE PHOSPHATASE 33 Units/L (46-116); ASPARTATE AMINO TRANSFERASE 9 Units/L (15-37); BLOOD UREA NITROGEN 28 mg/dL (7-18); CALCIUM 9.1 mg/dL (8.5-10.1); CARBON DIOXIDE 26.8 mmol/L (21-32); CHLORIDE 110 mmol/L (98-107); COR CA(FOR HYPOALB) 10.3 mg/dL (8.5-10.1); COR NA(FOR HYPERGLY) 145 mmol/L (136-145); CREATININE 1.09 mg/dL (0.70-1.30); SODIUM 145 mmol/L (136-145); TOTAL PROTEIN 6.3 g/dL (6.4-8.2); eGFR BLACK RACES > 60 (>60); eGFR NON BLACK RACES > 60 (>60)
--- NOTE | 2017-05-25 06:44 | RAD ---
History: Hypoxia Study: Portable AP chest Comparison: Yesterday Findings: The heart size is normal. There is limited inspiration of grossly clear lungs. There is no edema or effusion. Impression: Limited inspiration, no definite acute disease. Reported By:
[2017-05-25] MEDS: XOPENEX 1.25 MG/3 ML NEBULE NEB SCH ×2 (08:25→12:05)
[2017-05-25] MEDS: ROBITUSSIN DM PO SCH (09:08)
[2017-05-25] MEDS: ZANTAC PO SCH (09:08)
[2017-05-25] MEDS: NAMENDA TAB 10 MG PO SCH (09:08)
[2017-05-25] MEDS: LEVAQUIN PREMIX IV 750 MG 750 MG/150 ML BAG IV SCH (09:08)
[2017-05-25] MEDS: PROTONIX INJ 40 MG VIAL IVP SCH (09:08)
[2017-05-25] MEDS: SINGULAIR TAB 10 MG PO SCH (09:09)
[2017-05-25] MEDS: EFFEXOR XR 150 MG CAP PO SCH (09:09)
[2017-05-25] MEDS: CARDIZEM CD 240 MG PO SCH (09:09)
[2017-05-25] MEDS: ELIQUIS PO SCH (09:09)
[2017-05-25] MEDS: LASIX PO SCH (09:09)
[2017-05-25] MEDS: GEODON PO SCH (09:09)
[2017-05-25] MEDS: LOPRESSOR TAB 25 MG PO SCH (09:10)
[2017-05-25] MEDS: FLONASE NASAL SPRAY ENOSTRIL SCH (09:26)
[2017-05-25 12:46] VITALS: BP 102/53
== END 2017-05-25 13:40 | DRG 178 ==
LOC: ER 13:08 → ICU 16:36
PROVIDERS: ADMIT Internal Medicine; ATTEND Internal Medicine
DX: J69.0 Pneumonitis due to inhalation of food and vomit (principal); R00.0 Tachycardia, unspecified; J44.9 Chronic obstructive pulmonary disease, unspecified; K21.9 Gastro-esophageal reflux disease without esophagitis; I10 Essential (primary) hypertension; R94.31 Abnormal electrocardiogram [ECG] [EKG]; R06.02 Shortness of breath; K57.90 Diverticulosis of intestine, part unspecified, without perforation or abscess without bleeding; K92.1 Melena; Z98.890 Other specified postprocedural states; Z86.73 Personal history of transient ischemic attack (TIA), and cerebral infarction without residual deficits; B96.4 Proteus (mirabilis) (morganii) as the cause of diseases classified elsewhere; R26.89 Other abnormalities of gait and mobility
CPT/HCPCS: 36415; 36600; 71045; 80048; 80053; 82378; 82803; 85025; 86140; 87040; 87070; 87077; 87186; 87205; 93005; 94640; 99100; 99284; A4222; C9113; A4217; J0150; J0696; J0713; J1940; J1956; J2270; J2920; J3490; J7620

== ENCOUNTER → 2017-05-22 | Outpatient (CLI) | payer OTHER ==
[2017-05-22 09:58] VITALS: BP 117/70
--- NOTE | 2017-05-22 12:54 | RAD ---
HISTORY: Possible aspiration. Colonoscopy this a.m.. Decreased O2. Study: AP portable chest Comparison: 03/29/2017 Findings: Low volume inspiration is present. Minimal interstitial prominence is noted in the left lung base. This could be due to aspiration. The heart size is normal. Prominent left hilum is noted, unchanged . IMPRESSION: 1. Minimally prominent lung markings in the left lung base. This may be due to focal interstitial/a lveolar infiltrate or atelectatic change. 2. Otherwise, no radiographic evidence of acute cardiopulmonary disease. Reported By:
== END ==
LOC: RAD 12:29
PROVIDERS: ATTEND Internal Medicine
DX: R09.02 Hypoxemia (principal)
CPT/HCPCS: 71045

== ENCOUNTER 2017-05-28 20:17 | Emergency (ER) | payer OTHER ==
[2017-05-28 20:48] VITALS: BMI 27.4
--- NOTE | 2017-05-28 20:50 | DR.GENAD ---
HPI - PCP Primary Care Physician: Phong - Complaint/Symptoms Chief Complaint Doctors Comments: Questionable pneumonia. He was recently d/c from here back to [facility] (<1 week now) after treatment for aspiration pneumonia. Charge nurse at the [facility] reports audisble wheezing today. His last CXR was on 05/25/17 (prior to D/C) and it showed NAD. - Nurses notes reviewed Nurses Notes Review: Yes - Source History Provided: [facility] - Mode of Arrival Mode of Arrival: Wheelchair PMH - PMH Past Medical History: COPD, CVA, Depression, GERD, Hypertension Past Surgical History: Yes Surgical History: Cholecystectomy, Ortho Surgery - Family History Family Medical History: Cancer - Social History Do you use any recreational Drugs:: No ROS - Review of Systems Constitutional: No Symptoms Reported Eyes: No Symptoms Reported ENTM: No Symptoms Reported Respiratoy: Wheezing Cardiovascular: No Symptoms Reported Gastrointestinal/Abdominal: No Symptoms Reported Genitourinary: No Symptoms Reported Neurological: No Symptoms Reported Musculoskeletal: No Symptoms Reported Integumentary: No Symptoms Reported Hematologic/Lymphatic: No Symptoms Reported Endocrine: No Symptoms Reported Psychiatric: No Symptoms Reported All Other Systems: Reviewed and Negative PE - Vital Signs Vitals: Temperature 99.8 F Pulse Rate 102 Respiratory Rate 24 Blood Pressure [Left Arm] 102/53 Blood Pressure [Right Arm] 118/61 Blood Pressure 112/66 O2 Sat by Pulse Oximetry 97 - General Limitations: No Limitations General Appearance: Alert, In No Apparent Distress - Head Head Exam: Normal Inspection - Eyes Eye exam: Normal Appearance - ENT ENT Exam: Normal Exam - Neck Neck Exam: Normal Inspection - Chest Chest Inspection: Normal Inspection - Respiratory Respiratory Exam: Normal Lung Sounds Bilat - Cardiovascular Cardiovascular Exam: Regular Rate, Normal Rhythm, +S1, +S2 - Abdominal Exam Abdominal Exam: Normal Inspection, Normal Bowel Sounds, Soft - Extremities Extremities Exam: Normal Inspection - Back Back Exam: Normal Inspection - Neurologic Neurological Exam: Alert, Oriented X3 - Psychiatric Psychiatric Exam: Normal Affect, Normal Mood - Skin Skin Exam: Warm, Dry, Intact, Normal Color ROR - Labs Reviewed Result Diagrams: 05/28/17 21:34 05/28/17 21:34 Laboratory: WBC 9.4 X10^3/uL (3.6-10.0) 05/28/17 21:34 RBC 4.12 X10^6/uL (4.7-6.0) L 05/28/17 21:34 Hgb 10.6 g/dL (13.5-18.0) L 05/28/17 21:34 Hct 31.9 % (42.0-54.0) L 05/28/17 21:34 MCV 77.4 fL (80.0-100.0) L 05/28/17 21:34 MCH 25.6 pg (27.0-34.0) L 05/28/17 21:34 MCHC 33.1 g/dL (33.0-35.0) 05/28/17 21:34 RDW 15.7 % (11.6-16.5) 05/28/17 21:34 Plt Count 170 X10^3/uL (150.0-450.0) 05/28/17 21:34 Plt Count Comment Adequate (ADEQUATE) 05/28/17 21:34 MPV 7.4 fL (7.4-11.0) 05/28/17 21:34 Neut % (Auto) 77.0 % (42.0-75.0) H 05/28/17 21:34 Lymph % (Auto) 9.9 % (21.0-51.0) L 05/28/17 21:34 [place] % (Auto) 11.9 % (0.0-13.0) 05/28/17 21:34 Eos % (Auto) 0.5 % (0.9-2.9) L 05/28/17 21:34 Baso % (Auto) 0.7 % (0.2-1.0) 05/28/17 21:34 Neut # (Auto) 7.3 x10^3/uL (2.2-4.8) H 05/28/17 21:34 Lymph # (Auto) 0.9 X10^3/uL (1.3-2.9) L 05/28/17 21:34 [place] # (Auto) 1.1 x10^3/uL (0.3-0.8) H 05/28/17 21:34 Eos # (Auto) 0.0 x10^3/uL (0.0-0.2) 05/28/17 21:34 Baso # (Auto) 0.1 X10^3/uL (0.0-0.1) 05/28/17 21:34 Absolute Nucleated RBC 0.1 /100WBC 05/28/17 21:34 Plt Morphology Comment Normal (NORMAL) 05/28/17 21:34 RBC Morphology Normal (NORMAL) 05/28/17 21:34 Sodium 142 mmol/L (136-145) 05/28/17 21:34 Corrected Sodium 143 mmol/L (136-145) 05/28/17 21:34 Potassium 4.0 mmol/L (3.5-5.1) 05/28/17 21:34 Chloride 106 mmol/L (98-107) 05/28/17 21:34 Carbon Dioxide 32.5 mmol/L (21-32) H 05/28/17 21:34 BUN 24 mg/dL (7-18) H 05/28/17 21:34 Creatinine 1.16 mg/dL (0.70-1.30) 05/28/17 21:34 Est GFR (MDRD) Af Amer > 60 (>60) 05/28/17 21:34 Est GFR (MDRD) Non-Af > 60 (>60) 05/28/17 21:34 Glucose 125 mg/dL (65-99) H 05/28/17 21:34 Calcium 8.5 mg/dL (8.5-10.1) 05/28/17 21:34 Corrected Calcium 9.5 mg/dL (8.5-10.1) 05/28/17 21:34 Total Bilirubin 0.30 mg/dL (0.2-1.0) 05/28/17 21:34 AST 13 Units/L (15-37) L 05/28/17 21:34 ALT 21 Units/L (12-78) 05/28/17 21:34 Alkaline Phosphatase 46 Units/L (46-116) 05/28/17 21:34 Total Protein 6.5 g/dL (6.4-8.2) 05/28/17 21:34 Albumin 2.8 g/dL (3.4-5.0) L 05/28/17 21:34 Globulin 3.7 g/dL (2.5-4.5) 05/28/17 21:34 Albumin/Globulin Ratio 0.8 Ratio (1.1-2.1) L 05/28/17 21:34 - XRAY XRAY Interpreted by: Self (No acute cardiopulmonary disease.) - Diagnosis Discharge Problem: Wheezing, Hiccups - Discharge Plan Disposition: 63 DIS ACTUE [facility] Condition: Stable - Follow ups/Referrals Follow ups/Referrals: KEATON GUIDRY [STAFF PHYSICIAN] - 3 days - Instructions Instructions: Kristen
[2017-05-28 21:42] LABS: BASOPHILS # (AUTO) 0.1 X10^3/uL (0.0-0.1); BASOPHILS % (AUTO) 0.7 % (0.2-1.0); EOSINOPHILS % (AUTO) 0.5 % (0.9-2.9); HEMATOCRIT 31.9 % (42.0-54.0); HEMOGLOBIN 10.6 g/dL (13.5-18.0); LYMPHOCYTES # (AUTO) 0.9 X10^3/uL (1.3-2.9); LYMPHOCYTES % (AUTO) 9.9 % (21.0-51.0); MEAN CORPUSCULAR HEMOGLOBIN 25.6 pg (27.0-34.0); MEAN CORPUSCULAR HGB CONC 33.1 g/dL (33.0-35.0); MEAN CORPUSCULAR VOLUME 77.4 fL (80.0-100.0); MEAN PLATELET VOLUME 7.4 fL (7.4-11.0); MONOCYTES # (AUTO) 1.1 x10^3/uL (0.3-0.8); MONOCYTES % (AUTO) 11.9 % (0.0-13.0); NEUTROPHILS # (AUTO) 7.3 x10^3/uL (2.2-4.8); PLATELET COUNT 170 X10^3/uL (150.0-450.0); RED BLOOD COUNT 4.12 X10^6/uL (4.7-6.0); RED CELL DISTRIBUTION WIDTH 15.7 % (11.6-16.5); WHITE BLOOD COUNT 9.4 X10^3/uL (3.6-10.0)
[2017-05-28 21:56] LABS: ALANINE AMINOTRANSFERASE 21 Units/L (12-78); ALBUMIN 2.8 g/dL (3.4-5.0); ALKALINE PHOSPHATASE 46 Units/L (46-116); ASPARTATE AMINO TRANSFERASE 13 Units/L (15-37); BLOOD UREA NITROGEN 24 mg/dL (7-18); CALCIUM 8.5 mg/dL (8.5-10.1); CARBON DIOXIDE 32.5 mmol/L (21-32); CHLORIDE 106 mmol/L (98-107); COR CA(FOR HYPOALB) 9.5 mg/dL (8.5-10.1); COR NA(FOR HYPERGLY) 143 mmol/L (136-145); CREATININE 1.16 mg/dL (0.70-1.30); SODIUM 142 mmol/L (136-145); TOTAL PROTEIN 6.5 g/dL (6.4-8.2); eGFR BLACK RACES > 60 (>60); eGFR NON BLACK RACES > 60 (>60)
[2017-05-28 21:59] LABS: PLATELET MORPHOLOGY COMMENT NORMAL (NORMAL)
[2017-05-28] MEDS ORDERED: PHENERGAN INJ 25 MG IM ONE (22:05)
[2017-05-28] MEDS ORDERED: PHENERGAN INJ 25 MG ONE (22:11)
--- NOTE | 2017-05-28 23:07 | RAD ---
Chest, one view Indication: Shortness of breath, fever and wheezing Comparison: 05/25/2017 Findings: Heart size is normal. Streaky left basilar opacities are suggestive for atelectasis. The re mainder of the lungs are clear. No significant pleural effusion or pneumothorax is identified. There is no acute osseous abnormality. Impression: Streaky left basilar opacities, suggestive for atelectasis. No focal consolidation to suggest pneumon ia. Reported By:
[2017-05-28 23:39] VITALS: BP 103/56
== END 2017-05-28 22:48 ==
LOC: SUPCPDRO 20:17 → ER 20:17
DX: R06.2 Wheezing (principal); R06.6 Hiccough
CPT/HCPCS: 36415; 71045; 80053; 85025; 96372; 99282; 99283; J2550

== ENCOUNTER 2017-05-31 04:01 | Emergency (ER) | payer OTHER ==
[2017-05-31] MEDS ORDERED: DUONEB 0.5 MG/3 MG ONE ×2 (04:24→09:42)
[2017-05-31 04:27] VITALS: BMI 25.8
[2017-05-31] MEDS ORDERED: DUONEB 0.5 MG/3 MG NEB ONE ×2 (04:29→09:34)
--- NOTE | 2017-05-31 04:53 | DR.GENAD ---
HPI - PCP Primary Care Physician: MELANIA - HPI Comment HPI Comment: PATIENT HAD RECENT PNEUMONIA AND IS CURRENTLY RECOVERING FROM THE PNEUMONIA. TODAYCOUGH WORSE AND FEVER NOTED. HE IS SOB AND HAVING CHEST PAIN. 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 - Complaint/Symptoms Chief Complaint Doctors Comments: CHEST PAIN, COUGH, CONGESTION AND PERSISTENT HICOUGH FOR FEW HOURS. Chief Complaint:: EMELYN CALLED WITH REPORT PRIOR TO ARRIVAL PT HAVING CHEST PAIN AND COUGH AND FEVER AND CONTINUAL HICCUPS - Nurses notes reviewed Nurses Notes Review: Yes - Source History Provided: [facility] - Mode of Arrival Mode of Arrival: Stretcher - Timing Onset of Chief Complaint: 05/31/17 Came on: Gradually - Duration Duration: Constant Duration: Hours - Severity Severity: Moderate PMH - PMH Past Medical History: Yes Past Medical History: COPD, CVA, Depression, GERD, Hypertension Past Surgical History: Yes Surgical History: Cholecystectomy, Ortho Surgery - Family History History of Family Medical Conditions: Yes Family Medical History: Cancer - Social History Do you use any recreational Drugs:: No Lives With: Other Lives Where: [facility] - infectious screening In the last 2 months have you had wt loss of >10#?: NO Have you had fever, night sweats or hemotysis?: No Have you traveled outside the country in the last 6 months?: No Isolation: Standard ROS - Review of Systems Constitutional: Diaphoresis, Fever, Weakness, Fatigue Eyes: negative: Eye Pain, Discharge ENTM: Nose Congestion. negative: Ear Pain, Nose Discharge, Throat Pain Respiratoy: Productive Cough (YELLOW SPUTUM), Short of Breath, Wheezing. negative: Hemoptysis Cardiovascular: Chest Pain. negative: Palpitations, Syncope Gastrointestinal/Abdominal: negative: Abdominal Pain, Diarrhea, Nausea, Vomiting Genitourinary: negative: Hematuria Neurological: Problems Walking, Speech Problem (POST CVA.) Musculoskeletal: Muscle Pain Integumentary: No Symptoms Reported Hematologic/Lymphatic: Easy Bleeding, Easy Bruising Endocrine: No Symptoms Reported All Other Systems: Reviewed and Negative PE - Vital Signs Vitals: Temperature 98 F Pulse Rate [Apical] 82 Pulse Rate 73 Respiratory Rate 22 Blood Pressure [Left Arm] 139/78 Blood Pressure [Right Arm] 118/61 Blood Pressure 123/71 O2 Sat by Pulse Oximetry 96 - General Limitations: Physical Limitation General Appearance: Alert - Head Head Exam: Normal Inspection - Eyes Eye exam: Normal Appearance. negative: Scleral Icterus - ENT ENT Exam: Normal External Ear Exam External Ear Exam: Normal External Inspection TM/Canal Exam: Bilateral Normal Nose Exam: Normal Nose Exam Mouth Exam: Normal Inspection Throat Exam: Normal Inspection - Neck Neck Exam: Trachea Midline - Chest Chest Inspection: Symmetric Chest Wall Rise - Respiratory Respiratory Exam: Normal Lung Sounds Bilat Respiratory Exam: Bilateral Wheezing, Bilateral Rhonchi, Lower Wheezing, Lower Rhonchi - Cardiovascular Cardiovascular Exam: Regular Rate, Normal Rhythm, Normal Heart Sounds - Abdominal Exam Abdominal Exam: Normal Bowel Sounds, Soft. negative: Tenderness - Extremities Extremities Exam: negative: Edema, Calf Tenderness - Back Back Exam: Normal Inspection - Neurologic Neurological Exam: Alert, Oriented X3, Motor Sensory Deficit (PREVIOUS DEFICIT) - Psychiatric Psychiatric Exam: Anxious - Skin Skin Exam: Erythema MDM - Additional Information Additional Information Obtained From: Belt Sander Stone ([facility] STAFF.) - Differential Diagnosis Differential Diagnosis: CHEST PAIN, PNEUMONIA, RESP DISTRESS, BRONCHITIS, HICOUGH Course - Treatment Treatment: SEE ORDERS. - Consultation Consultation Comments: DISCUSS PATIENT WITH DR. VELÁZQUEZ. HE WILL SEND ORDERS TO [facility] FOR FUTHER MANAGEMENT. - Education/Counseling Education/Counseling: Patient Educated On: Diagnosis, Needs for Follow Up ROR - Labs Reviewed Laboratory Results Reviewed?: Yes Result Diagrams: 05/31/17 05:04 05/31/17 05:04 Laboratory: 05/31/17 04:54 Sputum - Endotracheal Wash - Final WBC 12.5 X10^3/uL (3.6-10.0) H 05/31/17 05:04 RBC 4.22 X10^6/uL (4.7-6.0) L 05/31/17 05:04 Hgb 10.8 g/dL (13.5-18.0) L 05/31/17 05:04 Hct 32.8 % (42.0-54.0) L 05/31/17 05:04 MCV 77.8 fL (80.0-100.0) L 05/31/17 05:04 MCH 25.5 pg (27.0-34.0) L 05/31/17 05:04 MCHC 32.8 g/dL (33.0-35.0) L 05/31/17 05:04 RDW 15.9 % (11.6-16.5) 05/31/17 05:04 Plt Count 214 X10^3/uL (150.0-450.0) 05/31/17 05:04 Plt Count Comment Adequate (ADEQUATE) 05/31/17 05:04 MPV 8.0 fL (7.4-11.0) 05/31/17 05:04 Neut % (Auto) 81.3 % (42.0-75.0) H 05/31/17 05:04 Lymph % (Auto) 12.2 % (21.0-51.0) L 05/31/17 05:04 [place] % (Auto) 6.1 % (0.0-13.0) 05/31/17 05:04 Eos % (Auto) 0.2 % (0.9-2.9) L 05/31/17 05:04 Baso % (Auto) 0.2 % (0.2-1.0) 05/31/17 05:04 Neut # (Auto) 10.1 x10^3/uL (2.2-4.8) H 05/31/17 05:04 Lymph # (Auto) 1.5 X10^3/uL (1.3-2.9) 05/31/17 05:04 [place] # (Auto) 0.8 x10^3/uL (0.3-0.8) 05/31/17 05:04 Eos # (Auto) 0.0 x10^3/uL (0.0-0.2) 05/31/17 05:04 Baso # (Auto) 0.0 X10^3/uL (0.0-0.1) 05/31/17 05:04 Absolute Nucleated RBC 0.0 /100WBC 05/31/17 05:04 Plt Morphology Comment Normal (NORMAL) 05/31/17 05:04 RBC Morphology Normal (NORMAL) 05/31/17 05:04 INR Target Range - 05/31/17 05:04 INR 1.20 (0.8-1.3) 05/31/17 05:04 APTT 23.0 SECONDS (22.9-36.5) 05/31/17 05:04 PTT Comment - 05/31/17 05:04 Sodium 139 mmol/L (136-145) 05/31/17 05:04 Corrected Sodium TNP 05/31/17 05:04 Potassium 4.2 mmol/L (3.5-5.1) 05/31/17 05:04 Chloride 101 mmol/L (98-107) 05/31/17 05:04 Carbon Dioxide 28.0 mmol/L (21-32) 05/31/17 05:04 BUN 26 mg/dL (7-18) H 05/31/17 05:04 Creatinine 1.26 mg/dL (0.70-1.30) 05/31/17 05:04 Est GFR (MDRD) Af Amer > 60 (>60) 05/31/17 05:04 Est GFR (MDRD) Non-Af 60 (>60) 05/31/17 05:04 Glucose 107 mg/dL (65-99) H 05/31/17 05:04 Calcium 9.2 mg/dL (8.5-10.1) 05/31/17 05:04 Corrected Calcium Cancelled 05/31/17 05:04 Magnesium 2.4 mg/dL (1.7-2.9) 05/31/17 05:04 Total Bilirubin Cancelled 05/31/17 05:04 AST Cancelled 05/31/17 05:04 ALT Cancelled 05/31/17 05:04 Alkaline Phosphatase Cancelled 05/31/17 05:04 Creatine Kinase 74 Units/L (39-308) 05/31/17 05:04 CK-MB (CK-2) 0.8 ng/mL (0-4.0) 05/31/17 05:04 CK/CKMB % Calc 1.1 % (<4) 05/31/17 05:04 Troponin I 0.00 ng/mL (0-1.5) 05/31/17 05:04 Total Protein Cancelled 05/31/17 05:04 Albumin Cancelled 05/31/17 05:04 Globulin Cancelled 05/31/17 05:04 Albumin/Globulin Ratio Cancelled 05/31/17 05:04 Triglycerides Cancelled 05/31/17 05:04 Cholesterol Cancelled 05/31/17 05:04 LDL Cholesterol, Calc Cancelled 05/31/17 05:04 HDL Cholesterol Cancelled 05/31/17 05:04 Cholesterol/HDL Ratio Cancelled 05/31/17 05:04 Specimen Type Catherized urine 05/31/17 04:48 Urine Color Yellow (YELLOW) 05/31/17 04:48 Urine Appearance Clear (CLEAR) 05/31/17 04:48 Urine pH 7.0 (5.0 - 8.0) 05/31/17 04:48 Ur Specific [place] 1.010 (1.000-1.030) 05/31/17 04:48 Urine Protein 1+ (NEGATIVE) 05/31/17 04:48 Urine Glucose (UA) Negative (NEGATIVE) 05/31/17 04:48 Urine Ketones Negative (NEGATIVE) 05/31/17 04:48 Urine Occult Blood Negative (NEGATIVE) 05/31/17 04:48 Urine Nitrite Negative (NEGATIVE) 05/31/17 04:48 Urine Bilirubin Negative (NEGATIVE) 05/31/17 04:48 Urine Urobilinogen 1+ (NORMAL) 05/31/17 04:48 Ur Leukocyte Esterase 1+ (NEGATIVE) 05/31/17 04:48 Urine RBC 0-2 /HPF (NONE SEEN) 05/31/17 04:48 Urine WBC 0-2 /HPF (NONE SEEN) 05/31/17 04:48 Ur Squamous Epith Cells Few /HPF (NEGATIVE) 05/31/17 04:48 Urine Bacteria Trace /HPF (NEGATIVE) 05/31/17 04:48 Ur Culture Indicated? No/not indicated 05/31/17 04:48 - XRAY XRAY Interpreted by: Radiologist XRAY Findings: REPORT DISCUSS WITH PATIENT. - EKG Rhythm: NSR (EKG NOTED.) - Diagnosis Discharge Problem: Pneumonitis, Bronchitis, Hiccough Chest pain Qualifiers: Chest pain type: intercostal pain Qualified Code(s): R07.82 - Intercostal pain - Discharge Plan Disposition: 01 HOME, SELF-CARE Condition: Stable - Follow ups/Referrals Follow ups/Referrals: Lionel Velázquez [Primary Care Provider] - 3 days - Instructions Instructions: Acute Bronchitis, Adult, [id number], Pneumonitis, Chest Pain Observation Additional Instructions: RETURN TO ED IF WORSE. PERSISTENT PNEUMONIA THAT IS HEALING. DR VELÁZQUEZ WILL SENT INSTRUCTIONS AND ORDERS HOW TO TREAT GOING FORWARD.
[2017-05-31 05:17] LABS: BILIRUBIN,URINE NEGATIVE (NEGATIVE); BLOOD/HEMOGLOBIN,URINE NEGATIVE (NEGATIVE); GLUCOSE, URINE NEGATIVE (NEGATIVE); KETONES,URINE NEGATIVE (NEGATIVE); LEUKOCYTE ESTERASE ,URINE 1+ (NEGATIVE); NITRITES,URINE NEGATIVE (NEGATIVE); PROTEIN,URINE 1+ (NEGATIVE); UROBILINOGEN,URINE 1+ (NORMAL)
[2017-05-31 05:26] LABS: BLOOD UREA NITROGEN 26 mg/dL (7-18); CALCIUM 9.2 mg/dL (8.5-10.1); CHLORIDE 101 mmol/L (98-107); CREATININE 1.26 mg/dL (0.70-1.30); SODIUM 139 mmol/L (136-145); eGFR BLACK RACES > 60 (>60); eGFR NON BLACK RACES 60 (>60)
[2017-05-31 05:30] LABS: BASOPHILS % (AUTO) 0.2 % (0.2-1.0); EOSINOPHILS % (AUTO) 0.2 % (0.9-2.9); HEMATOCRIT 32.8 % (42.0-54.0); HEMOGLOBIN 10.8 g/dL (13.5-18.0); LYMPHOCYTES # (AUTO) 1.5 X10^3/uL (1.3-2.9); LYMPHOCYTES % (AUTO) 12.2 % (21.0-51.0); MEAN CORPUSCULAR HEMOGLOBIN 25.5 pg (27.0-34.0); MEAN CORPUSCULAR HGB CONC 32.8 g/dL (33.0-35.0); MEAN CORPUSCULAR VOLUME 77.8 fL (80.0-100.0); MONOCYTES # (AUTO) 0.8 x10^3/uL (0.3-0.8); MONOCYTES % (AUTO) 6.1 % (0.0-13.0); NEUTROPHILS # (AUTO) 10.1 x10^3/uL (2.2-4.8); NEUTROPHILS % (AUTO) 81.3 % (42.0-75.0); PLATELET COUNT 214 X10^3/uL (150.0-450.0); RED BLOOD COUNT 4.22 X10^6/uL (4.7-6.0); RED CELL DISTRIBUTION WIDTH 15.9 % (11.6-16.5); WHITE BLOOD COUNT 12.5 X10^3/uL (3.6-10.0)
[2017-05-31 05:39] LABS: MAGNESIUM 2.4 mg/dL (1.7-2.9)
[2017-05-31 05:40] LABS: APPEARANCE,URINE CLEAR (CLEAR); COLOR,URINE YELLOW (YELLOW)
[2017-05-31 05:41] LABS: BACTERIA,URINE TRACE /HPF (NEGATIVE); RBC,URINE 0-2 /HPF (NONE SEEN); SQUAMOUS EPITHELIAL CELL,UR FEW /HPF (NEGATIVE)
[2017-05-31 05:48] LABS: PLATELET MORPHOLOGY COMMENT NORMAL (NORMAL)
[2017-05-31 06:41] LABS: CKMB % 1.1 % (<4); CREATINE KINASE MB 0.8 ng/mL (0-4.0)
[2017-05-31 10:16] VITALS: BP 139/78
== END 2017-05-31 10:24 | disposition home or self-care (01) ==
LOC: ER 04:01
DX: J40 Bronchitis, not specified as acute or chronic (principal); R06.6 Hiccough; R07.82 Intercostal pain; R94.31 Abnormal electrocardiogram [ECG] [EKG]
CPT/HCPCS: 36415; 51702; 71045; 80048; 81001; 82550; 82553; 83735; 84484; 85025; 85610; 85730; 87040; 87070; 87077; 87186; 87205; 93005; 94640; 96365; 96374; 99283; 99285; A4222; J7620

== ENCOUNTER 2017-06-06 10:28 | Observation (INO) | payer OTHER ==
[2017-06-06] MEDS ORDERED: NS 1000 ML 1,000 ML IV SCH (11:33)
[2017-06-06] MEDS ORDERED: NS IV SCH (12:00)
[2017-06-06] MEDS ORDERED: TOBRAMYCIN SULFATE IV SCH (12:00)
--- NOTE | 2017-06-06 14:08 | DR.H&P ---
H&P - History & Physical for Day of: H&P Date: 06/06/17 - Chief Complaint Chief Complaint: DYSPHAGIA, GENERALIZED WEAKNESS - Allergies Allergies/Adverse Reactions: Allergies Allergy/AdvReac Type Severity Reaction Status Date / Time No Known Drug Allergies Allergy Verified 09/09/16 12:13 - History of Present Illness History of Present Illness: IS A 72 YEAR OLD PATIENT OF OURS WHO IS A DIRECT ADMISSION FROM [facility] WITH COMPLAINTS OF DIFFICULTY SWALLOWING AND GENERALIZED WEAKNESS. STAFF REPORTS THAT PATIENT IMMEDIATELY BEGINS COUGHING AND GETTING STRANGLED WHENEVER HE ATTEMPTS TO EAT OR DRINK. SPEECH THERAPY EVALUATED PATIENT AND RECOMMENDED THAT PATIENT REMAIN NPO. PATIENT WAS RECENTLY HOSPITALIZED FOR ASPIRATION PNEUMONIA. STAFF AND FAMILY ALSO REPORT THAT PATIENT HAS BEEN NOTED WITH GENERALIZED WEAKNESS FOR THE PAST FEW DAYS. THIS IS PROBABLY SECONDARY TO INADEQUATE NUTRITION. FAMILY AND PATIENT REQUEST PLACEMENT OF PEG TUBE. WE ARE IN AGREEMENT WITH PLAN. ON EXAMINATION, HEART IS REGULAR IN RATE AND RHYTHM. BIALTERAL LUNGS ARE NOTED WITH DIMINISHED LUNG SOUNDS THROUGHOUT. ABDOMEN IS ROUND, SOFT, AND NON-TENDER WITH NORMAL BOWEL SOUNDS NOTED IN ALL QUADRANTS. PATIENT WILL BE ADMITTED TO THE HOSPITAL FOR FURTHER EVALUATION AND TREATMENT. WE WILL CONSULT ON ADMISSION FOR SURGICAL CONSULT. OTHERWISE, WE WILL FOLLOW UP WITH AM LABS AND CONTINUE TO MONITOR PATIENT. - Past Medical History Past Medical History: COPD, CVA, Depression, GERD, Hypertension Additional Medical History: Prostate Cancer, Chronic Cholelithiasis - Past Surgical History Surgical History: Cholecystectomy, Ortho Surgery Additional Surgical History: Prostatectomy, Hiatal Hernia Repair, Left Knee - Family History Family Medical History: Cancer - Social History Does patient currently use any type of tobacco product: No Have you used tobacco products in the last 12 months: No Type of Tobacco Use: None Does any household member use tobacco: No Alcohol Use: None Drug Use: None - Review of Systems Constitutional: Weakness, Malaise Eyes: No Symptoms Reported ENT: No Symptoms Reported Respiratory: Cough, Shortness of Breath Cardiovascular: No Symptoms Reported Gastrointestinal: No Symptoms Reported Genitourinary: No Symptoms Reported Musculoskeletal: No Symptoms Reported Skin: No Symptoms Reported Neurological: Weakness - Physical Exam Vital Signs: Temperature 97.6 F Pulse Rate [Left Brachial] 80 Respiratory Rate 22 Blood Pressure [Left Arm] 123/81 Blood Pressure [Right Arm] 118/61 Blood Pressure 139/78 O2 Sat by Pulse Oximetry 97 Oriented: Normal Eyes: Normal Ear: Normal Nose: Normal Throat: Normal Respiratory: Diminished Throughout Cardiovascular: Normal : Normal Auscultation: Bowel Sounds: Normal Palpation: Normal Tenderness: Normal Skin: Decreased Turgur Musculoskeletal: Motor Deficit, Instability Psychiatric: Normal Mood Description: Calm Affect: Normal Speech Pattern: Aphasic - Assessment/Plan (1) Dysphagia Qualifiers: Dysphagia type: unspecified Qualified Code(s): R13.10 - Dysphagia, unspecified Status: Acute Plan: CONSULT FOR PLACEMENT OF PEG TUBE, CONTINUE TO MONITOR (2) Generalized weakness Status: Acute Plan: ALBUMIN 25% IV DAILY, PROCAL AT 40ML/HR, CONTINUE TO MONITOR
[2017-06-06 14:12] VITALS: BMI 25.2
--- NOTE | 2017-06-06 14:51 | OR.GENERIC ---
Post-Op Note Generic - Post-Op Note Operative Report: EGD and placement of PEG feeding tube . Pt did well . will keep NPO today open tube to gravity drainage and start feeding in24 hours..
[2017-06-06] MEDS ORDERED: D5 1/2 NS 1000 ML 1,000 ML IV SCH (15:00)
[2017-06-06] MEDS: ALBUMIN HUMAN 25%- 100ML 100 ML IV SCH (15:34)
[2017-06-06] MEDS: DILAUDID INJ IVP PRN ×2 (15:54→19:50)
[2017-06-06] MEDS: D5 1/2 NS 1000 ML 1,000 ML IV SCH (16:03)
[2017-06-06] MEDS: PROCALAMINE 3 % 1,000 ML IV SCH (17:30)
[2017-06-07 00:56] LABS: BILIRUBIN,URINE NEGATIVE (NEGATIVE); BLOOD/HEMOGLOBIN,URINE 1+ (NEGATIVE); GLUCOSE, URINE NEGATIVE (NEGATIVE); KETONES,URINE 1+ (NEGATIVE); LEUKOCYTE ESTERASE ,URINE NEGATIVE (NEGATIVE); NITRITES,URINE NEGATIVE (NEGATIVE); PROTEIN,URINE 2+ (NEGATIVE); UROBILINOGEN,URINE NORMAL (NORMAL)
[2017-06-07 01:16] LABS: APPEARANCE,URINE CLEAR (CLEAR); COLOR,URINE YELLOW (YELLOW)
[2017-06-07 01:20] LABS: BACTERIA,URINE TRACE /HPF (NEGATIVE); HYALINE CASTS, URINE FEW /LPF (NEGATIVE); MUCUS,URINE FEW /HPF (NEGATIVE); SQUAMOUS EPITHELIAL CELL,UR MODERATE /HPF (NEGATIVE)
[2017-06-07 05:20] LABS: BASOPHILS # (AUTO) 0.1 X10^3/uL (0.0-0.1); BASOPHILS % (AUTO) 1.7 % (0.2-1.0); EOSINOPHILS # (AUTO) 0.1 x10^3/uL (0.0-0.2); EOSINOPHILS % (AUTO) 1.2 % (0.9-2.9); HEMATOCRIT 29.6 % (42.0-54.0); HEMOGLOBIN 9.7 g/dL (13.5-18.0); LYMPHOCYTES # (AUTO) 0.9 X10^3/uL (1.3-2.9); LYMPHOCYTES % (AUTO) 10.5 % (21.0-51.0); MEAN CORPUSCULAR HEMOGLOBIN 25.5 pg (27.0-34.0); MEAN CORPUSCULAR HGB CONC 32.8 g/dL (33.0-35.0); MEAN CORPUSCULAR VOLUME 77.9 fL (80.0-100.0); MEAN PLATELET VOLUME 7.9 fL (7.4-11.0); MONOCYTES # (AUTO) 0.5 x10^3/uL (0.3-0.8); MONOCYTES % (AUTO) 5.5 % (0.0-13.0); NEUTROPHILS # (AUTO) 6.8 x10^3/uL (2.2-4.8); NEUTROPHILS % (AUTO) 81.1 % (42.0-75.0); PLATELET COUNT 259 X10^3/uL (150.0-450.0); RED CELL DISTRIBUTION WIDTH 15.7 % (11.6-16.5); WHITE BLOOD COUNT 8.4 X10^3/uL (3.6-10.0)
[2017-06-07 05:31] LABS: ALANINE AMINOTRANSFERASE 16 Units/L (12-78); ALKALINE PHOSPHATASE 51 Units/L (46-116); ASPARTATE AMINO TRANSFERASE 12 Units/L (15-37); BLOOD UREA NITROGEN 23 mg/dL (7-18); CALCIUM 9.4 mg/dL (8.5-10.1); CARBON DIOXIDE 25.9 mmol/L (21-32); CHLORIDE 106 mmol/L (98-107); COR CA(FOR HYPOALB) 10.2 mg/dL (8.5-10.1); CREATININE 1.01 mg/dL (0.70-1.30); SODIUM 141 mmol/L (136-145); eGFR BLACK RACES > 60 (>60); eGFR NON BLACK RACES > 60 (>60)
[2017-06-07 05:54] LABS: PLATELET MORPHOLOGY COMMENT NORMAL (NORMAL)
--- NOTE | 2017-06-07 06:15 | RAD ---
HISTORY: Shortness of breath Study: Chest AP portable Comparison: 06/06/2017 Findings: The heart is within normal limits in size. The karla are normal. The lungs are mildly hypo inflated bu t free of acute alveolar infiltrates. Perihilar subsegmental atelectasis is present on the left. Ther e is a hiatal hernia present. The bony thorax is unremarkable. IMPRESSION: Hypo inflation Perihilar subsegmental atelectasis on the left Hiatal hernia Reported By:
[2017-06-07] MEDS: DILAUDID INJ IVP PRN ×3 (06:34→22:35)
[2017-06-07] MEDS: ALBUMIN HUMAN 25%- 100ML 100 ML IV SCH (08:43)
--- NOTE | 2017-06-07 09:04 | DR.PROGNOT ---
Hospital Progress Notes - Progress Note for Day of: Progress Note Date: 06/07/17 - Chief Complaint Chief Complaint: PO placement of PEG feeding tube for dysphagia and recurrent aspiration. no abdominal pain , no leakage around the tube site . will start feeding today. - Past Medical Family Social History Past Med/Fam/Surg Hx: No changes since H&P Allergies: Allergies No Known Drug Allergies Allergy (Verified 09/09/16 12:13) - Review Of Systems ROS: No change since H&P - Vital Signs Vital Signs: Temperature 97.8 F Pulse Rate [Left Brachial] 66 Respiratory Rate 20 Blood Pressure [Left Arm] 127/67 Blood Pressure [Right Arm] 118/61 Blood Pressure 139/78 O2 Sat by Pulse Oximetry 97 - Physical Exam Oriented: Normal Eyes: Normal Ear: Normal Nose: Normal Throat: Normal Respiratory: Rhonchi (bilateral rhochi and mild wheezing .) Cardiovascular: Normal : Normal GI:Auscultation: Normal GI:Palpation: Normal GI: Tenderness: Epigastric (mild tenderness , BS+ ) Skin: Decreased Turgur Musculoskeletal: Motor Deficit, Instability Psychiatric: Normal Mood Description: Calm Affect: Normal Speech Pattern: Aphasic - Laboratory and Diagnostics Result Diagrams: 06/07/17 04:35 06/07/17 04:35 Labs: Laboratory WBC 8.4 X10^3/uL (3.6-10.0) 06/07/17 04:35 RBC 3.80 X10^6/uL (4.7-6.0) L 06/07/17 04:35 Hgb 9.7 g/dL (13.5-18.0) L 06/07/17 04:35 Hct 29.6 % (42.0-54.0) L 06/07/17 04:35 MCV 77.9 fL (80.0-100.0) L 06/07/17 04:35 MCH 25.5 pg (27.0-34.0) L 06/07/17 04:35 MCHC 32.8 g/dL (33.0-35.0) L 06/07/17 04:35 RDW 15.7 % (11.6-16.5) 06/07/17 04:35 Plt Count 259 X10^3/uL (150.0-450.0) 06/07/17 04:35 Plt Count Comment Adequate (ADEQUATE) 06/07/17 04:35 MPV 7.9 fL (7.4-11.0) 06/07/17 04:35 Neut % (Auto) 81.1 % (42.0-75.0) H 06/07/17 04:35 Lymph % (Auto) 10.5 % (21.0-51.0) L 06/07/17 04:35 [place] % (Auto) 5.5 % (0.0-13.0) 06/07/17 04:35 Eos % (Auto) 1.2 % (0.9-2.9) 06/07/17 04:35 Baso % (Auto) 1.7 % (0.2-1.0) H 06/07/17 04:35 Neut # (Auto) 6.8 x10^3/uL (2.2-4.8) H 06/07/17 04:35 Lymph # (Auto) 0.9 X10^3/uL (1.3-2.9) L 06/07/17 04:35 [place] # (Auto) 0.5 x10^3/uL (0.3-0.8) 06/07/17 04:35 Eos # (Auto) 0.1 x10^3/uL (0.0-0.2) 06/07/17 04:35 Baso # (Auto) 0.1 X10^3/uL (0.0-0.1) 06/07/17 04:35 Absolute Nucleated RBC 0.0 /100WBC 06/07/17 04:35 Plt Morphology Comment Normal (NORMAL) 06/07/17 04:35 RBC Morphology Normal (NORMAL) 06/07/17 04:35 Sodium 141 mmol/L (136-145) 06/07/17 04:35 Corrected Sodium TNP 06/07/17 04:35 Potassium 4.0 mmol/L (3.5-5.1) 06/07/17 04:35 Chloride 106 mmol/L (98-107) 06/07/17 04:35 Carbon Dioxide 25.9 mmol/L (21-32) 06/07/17 04:35 BUN 23 mg/dL (7-18) H 06/07/17 04:35 Creatinine 1.01 mg/dL (0.70-1.30) 06/07/17 04:35 Est GFR (MDRD) Af Amer > 60 (>60) 06/07/17 04:35 Est GFR (MDRD) Non-Af > 60 (>60) 06/07/17 04:35 Glucose 106 mg/dL (65-99) H 06/07/17 04:35 Calcium 9.4 mg/dL (8.5-10.1) 06/07/17 04:35 Corrected Calcium 10.2 mg/dL (8.5-10.1) H 06/07/17 04:35 Total Bilirubin 0.80 mg/dL (0.2-1.0) 06/07/17 04:35 AST 12 Units/L (15-37) L 06/07/17 04:35 ALT 16 Units/L (12-78) 06/07/17 04:35 Alkaline Phosphatase 51 Units/L (46-116) 06/07/17 04:35 Total Protein 8.0 g/dL (6.4-8.2) 06/07/17 04:35 Albumin 3.0 g/dL (3.4-5.0) L 06/07/17 04:35 Globulin 5.0 g/dL (2.5-4.5) H 06/07/17 04:35 Albumin/Globulin Ratio 0.6 Ratio (1.1-2.1) L 06/07/17 04:35 Specimen Type Clean catch urine 06/07/17 00:22 Urine Color Yellow (YELLOW) 06/07/17 00:22 Urine Appearance Clear (CLEAR) 06/07/17 00:22 Urine pH 5.0 (5.0 - 8.0) 06/07/17 00:22 Ur Specific [place] 1.030 (1.000-1.030) 06/07/17 00:22 Urine Protein 2+ (NEGATIVE) 06/07/17 00:22 Urine Glucose (UA) Negative (NEGATIVE) 06/07/17 00: Urine Ketones 1+ (NEGATIVE) 06/07/17 00:22 Urine Occult Blood 1+ (NEGATIVE) 06/07/17 00:22 Urine Nitrite Negative (NEGATIVE) 06/07/17 00:22 Urine Bilirubin Negative (NEGATIVE) 06/07/17 00:22 Urine Urobilinogen Normal (NORMAL) 06/07/17 00:22 Ur Leukocyte Esterase Negative (NEGATIVE) 06/07/17 00:22 Urine RBC 5-10 /HPF (NONE SEEN) 06/07/17 00:22 Urine WBC 0-2 /HPF (NONE SEEN) 06/07/17 00:22 Ur Squamous Epith Cells Moderate /HPF (NEGATIVE) 06/07/17 00:22 Urine Bacteria Trace /HPF (NEGATIVE) 06/07/17 00:22 Hyaline Casts Few /LPF (NEGATIVE) 06/07/17 00:22 Urine Mucus Few /HPF (NEGATIVE) 06/07/17 00:22 Ur Culture Indicated? No/not indicated 06/07/17 00:22 Random Tobramycin 3.6 ug/mL 06/07/17 00:25 - Assessment and Plan 1: dysphagia 2ed to oral pharangeal muscle dysfunction. recurrent aspiration. old CVA. PO placement of PEG tube . to start feeding today via PEG tube . - Problem Patient Problems: Patient Problems Dysphagia (Acute) R13.10
[2017-06-07] MEDS: LOVENOX INJ 30 MG SYR SC SCH ×2 (09:30→22:45)
[2017-06-07 10:41] LABS: CKMB % 1.8 % (<4); CREATINE KINASE 57 Units/L (39-308); TROPONIN I < 0.02 ng/mL (0-1.5)
[2017-06-07] MEDS ORDERED: Atrovent NEB TX 0.02% NEB SCH (16:00)
[2017-06-07] MEDS ORDERED: TUSSIONEX PENNKINETIC SUSP PO PRN (16:00)
[2017-06-07] MEDS ORDERED: XOPENEX 1.25 MG/3 ML NEBULE NEB SCH (16:00)
[2017-06-07] MEDS: D5 1/2 NS 1000 ML 1,000 ML IV SCH (16:28)
[2017-06-07] MEDS: Atrovent NEB TX 0.02% NEB SCH (17:28)
[2017-06-07] MEDS: XOPENEX 1.25 MG/3 ML NEBULE NEB SCH (17:29)
[2017-06-07] MEDS: PROCALAMINE 3 % 1,000 ML IV SCH (18:07)
[2017-06-07] MEDS ORDERED: ARICEPT TAB 10 MG PO SCH (21:00)
[2017-06-07] MEDS ORDERED: NAMENDA TAB 10 MG PO SCH (21:00)
[2017-06-07] MEDS ORDERED: PATIENT'S HOME MEDICATION PO SCH ×2 (22:00)
[2017-06-07] MEDS: LOPRESSOR TAB 25 MG PO SCH (22:40)
[2017-06-07] MEDS: GEODON PO SCH (22:43)
[2017-06-07] MEDS: ZANTAC PO SCH (22:43)
[2017-06-07] MEDS: LASIX PO SCH (22:44)
[2017-06-07] MEDS: FLONASE NASAL SPRAY ENOSTRIL SCH (22:45)
[2017-06-07] MEDS: PATIENT'S HOME MEDICATION PO SCH (22:54)
[2017-06-07] MEDS ORDERED: NS IV SCH (23:59)
[2017-06-07] MEDS ORDERED: TOBRAMYCIN SULFATE IV SCH (23:59)
[2017-06-08] MEDS: XOPENEX 1.25 MG/3 ML NEBULE NEB SCH ×3 (00:40→10:59)
[2017-06-08] MEDS: Atrovent NEB TX 0.02% NEB SCH ×3 (00:40→10:59)
[2017-06-08 05:12] LABS: BASOPHILS # (AUTO) 0.1 X10^3/uL (0.0-0.1); BASOPHILS % (AUTO) 0.7 % (0.2-1.0); EOSINOPHILS # (AUTO) 0.2 x10^3/uL (0.0-0.2); EOSINOPHILS % (AUTO) 1.9 % (0.9-2.9); HEMATOCRIT 29.6 % (42.0-54.0); HEMOGLOBIN 9.6 g/dL (13.5-18.0); LYMPHOCYTES # (AUTO) 1.7 X10^3/uL (1.3-2.9); LYMPHOCYTES % (AUTO) 17.8 % (21.0-51.0); MEAN CORPUSCULAR HEMOGLOBIN 25.6 pg (27.0-34.0); MEAN CORPUSCULAR HGB CONC 32.3 g/dL (33.0-35.0); MEAN CORPUSCULAR VOLUME 79.2 fL (80.0-100.0); MEAN PLATELET VOLUME 8.6 fL (7.4-11.0); MONOCYTES # (AUTO) 0.5 x10^3/uL (0.3-0.8); MONOCYTES % (AUTO) 4.8 % (0.0-13.0); NEUTROPHILS # (AUTO) 7.3 x10^3/uL (2.2-4.8); NEUTROPHILS % (AUTO) 74.8 % (42.0-75.0); PLATELET COUNT 235 X10^3/uL (150.0-450.0); RED BLOOD COUNT 3.74 X10^6/uL (4.7-6.0); RED CELL DISTRIBUTION WIDTH 15.6 % (11.6-16.5); WHITE BLOOD COUNT 9.8 X10^3/uL (3.6-10.0)
[2017-06-08 05:19] LABS: ALANINE AMINOTRANSFERASE 14 Units/L (12-78); ALBUMIN 3.2 g/dL (3.4-5.0); ALKALINE PHOSPHATASE 48 Units/L (46-116); ASPARTATE AMINO TRANSFERASE 11 Units/L (15-37); BLOOD UREA NITROGEN 21 mg/dL (7-18); CALCIUM 9.5 mg/dL (8.5-10.1); CARBON DIOXIDE 25.7 mmol/L (21-32); CHLORIDE 101 mmol/L (98-107); COR CA(FOR HYPOALB) 10.1 mg/dL (8.5-10.1); CREATININE 0.99 mg/dL (0.70-1.30); SODIUM 136 mmol/L (136-145); TOTAL PROTEIN 7.9 g/dL (6.4-8.2); eGFR BLACK RACES > 60 (>60); eGFR NON BLACK RACES > 60 (>60)
[2017-06-08 05:36] LABS: HYPOCHROMASIA SLIGHT; PLATELET MORPHOLOGY COMMENT NORMAL (NORMAL)
[2017-06-08] MEDS: PATIENT'S HOME MEDICATION PO SCH ×3 (05:51→14:54)
[2017-06-08] MEDS: D5 1/2 NS 1000 ML 1,000 ML IV SCH ×2 (07:30→15:13)
--- NOTE | 2017-06-08 07:57 | RAD ---
HISTORY: Fever, shortness of breath, wheezing Study: Chest AP portable Comparison: 06/07/2017 Findings: The heart is within normal limits in size. The karla are normal. The lungs are free of acute alveolar infiltrates. There is minimal subsegmental atelectasis in the left lung base. No pleural effusions ar e identified. There is likely a hiatal hernia present. The bony thorax is unremarkable. IMPRESSION: No significant change from the prior examination Reported By:
[2017-06-08] MEDS: LOPRESSOR TAB 25 MG PO SCH (08:54)
[2017-06-08] MEDS ORDERED: NAMENDA TAB 10 MG PO SCH (09:00)
[2017-06-08] MEDS ORDERED: EFFEXOR XR 150 MG CAP PO SCH (09:00)
[2017-06-08] MEDS ORDERED: SINGULAIR TAB 10 MG PO SCH (09:00)
[2017-06-08] MEDS: ALBUMIN HUMAN 25%- 100ML 100 ML IV SCH (09:08)
[2017-06-08] MEDS: LOVENOX INJ 30 MG SYR SC SCH (09:10)
[2017-06-08] MEDS: LASIX PO SCH (09:10)
[2017-06-08] MEDS: FLONASE NASAL SPRAY ENOSTRIL SCH (09:10)
[2017-06-08] MEDS: GEODON PO SCH (09:10)
[2017-06-08] MEDS: ZANTAC PO SCH (09:12)
[2017-06-08] MEDS ORDERED: MILK OF MAGNESIA PO ONE (11:19)
[2017-06-08] MEDS ORDERED: COLACE CAP 100 MG PO SCH (12:00)
[2017-06-08] MEDS ORDERED: DULCOLAX SUPPOSITORY 10 MG RECTAL ONE (12:29)
[2017-06-08] MEDS ORDERED: MILK OF MAGNESIA PO SCH (13:00)
[2017-06-08 14:28] VITALS: BP 107/58
--- NOTE | 2017-06-08 15:37 | PCM.PROG ---
Progress Note - Progress Note for Day of Date: 06/07/17 - Subjective Subjective: IS POST OP DAY 1 FROM PLACEMENT OF PEG TUBE. TODAY, HE IS LYING IN BED WITH EYES OPEN ON MORNING ROUNDS. PATIENT IS ASPHASIC, HOWEVER, NODS HEAD APPROPRIATELY TO QUESTIONS. HE IS IN NO APPARENT DISTRESS. ON EXAMINATION, HEART IS REGULAR IN RATE AND RHYTHM. BILATERAL LUNGS ARE CLEAR TO AUSCULTATION. ABDOMEN IS ROUND, SOFT, AND NOTED WITH TENDERNESS TO PALPATION. PEG TUBE NOTED TO ABDOMEN. DRESSING IS DRY AND INTACT WITH NO SIGNS OR SX INFECTION NOTED TO SITE. HIS VITALS THIS MORNING ARE 97.8-66-20-97%-127/67. LABS WERE OBTAINED. ABNORMAL LAB VALUES INCLUDE THE FOLLOWING: RBC 3.80, HGB 9.7 , HCT 29.6, BUN 23, GLUCOSE 106, AST 12, ALBUMIN 3.0, GLOBULIN 5.0. A CHEST XRAY WAS OBTAINED TODAY AND REVEALED PERIHILAR SUBSEGMENTAL ATELECTASIS ON THE LEFT. HE IS CURRENTLY RECEIVING TOBRAMYCIN FOR INFECTION IN THE SPUTUM. HE HAS BEEN RECEIVING ANTIBIOTIC FOR ONE WEEK. TODAY, WE WILL ADVANCE HIS PEG TUBE FEEDING TO 40ML/HR. OTHERWISE, WE WILL CONTINUE WITH CURRENT PLAN OF CARE. WE PLAN TO ADVANCE HIS FEED RATE EVERY 12 HOURS AND WILL TRANSITION TO BOLUS FEEDINGS TOMORROW. WE WILL FOLLOW UP WITH AM LABS AND CONTINUE TO MONTIOR PATIENT. - Past Medical Family Social History Past Med/Fam/Surg Hx: No changes since H&P Allergies: Allergies No Known Drug Allergies Allergy (Verified 09/09/16 12:13) - Review of Systems ROS: No change since H&P - Vital Signs and I&O's Vital Signs: Temperature 100 F Pulse Rate [Left Brachial] 80 Pulse Rate 84 Respiratory Rate 24 Blood Pressure [Left Arm] 107/58 Blood Pressure [Right Arm] 117/85 Blood Pressure 139/78 O2 Sat by Pulse Oximetry 100 Intake and Output: Intake & Output 06/06/17 06/07/17 06/08/17 06/09/17 11:59 11:59 11:59 11:59 Intake Total 1202 0 Output Total 350 Balance 852 0 - Physical Exam Oriented: Normal Eyes: Normal Ear: Normal Nose: Normal Throat: Normal Respiratory: Rhonchi (bilateral rhochi and mild wheezing .) Cardiovascular: Normal : Normal Auscultation: Bowel Sounds: Normal Palpation: Normal Tenderness: Epigastric (mild tenderness , BS+ ) Skin: Normal Musculoskeletal: Motor Deficit, Instability Psychiatric: Normal Mood Description: Calm Affect: Normal Speech Pattern: Aphasic - Laboratory and Diagnostics Result Diagrams: 06/08/17 04:10 06/08/17 04:10 Labs: Laboratory WBC 9.8 X10^3/uL (3.6-10.0) 06/08/17 04:10 RBC 3.74 X10^6/uL (4.7-6.0) L 06/08/17 04:10 Hgb 9.6 g/dL (13.5-18.0) L 06/08/17 04:10 Hct 29.6 % (42.0-54.0) L 06/08/17 04:10 MCV 79.2 fL (80.0-100.0) L 06/08/17 04:10 MCH 25.6 pg (27.0-34.0) L 06/08/17 04:10 MCHC 32.3 g/dL (33.0-35.0) L 06/08/17 04:10 RDW 15.6 % (11.6-16.5) 06/08/17 04:10 Plt Count 235 X10^3/uL (150.0-450.0) 06/08/17 04:10 Plt Count Comment Adequate (ADEQUATE) 06/08/17 04:10 MPV 8.6 fL (7.4-11.0) 06/08/17 04:10 Neut % (Auto) 74.8 % (42.0-75.0) 06/08/17 04:10 Lymph % (Auto) 17.8 % (21.0-51.0) L 06/08/17 04:10 [place] % (Auto) 4.8 % (0.0-13.0) 06/08/17 04:10 Eos % (Auto) 1.9 % (0.9-2.9) 06/08/17 04:10 Baso % (Auto) 0.7 % (0.2-1.0) 06/08/17 04:10 Neut # (Auto) 7.3 x10^3/uL (2.2-4.8) H 06/08/17 04:10 Lymph # (Auto) 1.7 X10^3/uL (1.3-2.9) 06/08/17 04:10 [place] # (Auto) 0.5 x10^3/uL (0.3-0.8) 06/08/17 04:10 Eos # (Auto) 0.2 x10^3/uL (0.0-0.2) 06/08/17 04:10 Baso # (Auto) 0.1 X10^3/uL (0.0-0.1) 06/08/17 04:10 Absolute Nucleated RBC 0.0 /100WBC 06/08/17 04:10 Plt Morphology Comment Normal (NORMAL) 06/08/17 04:10 RBC Morphology Abnormal (NORMAL) 06/08/17 04:10 Hypochromasia Slight A 06/08/17 04:10 Sodium 136 mmol/L (136-145) 06/08/17 04:10 Corrected Sodium TNP 06/08/17 04:10 Potassium 4.0 mmol/L (3.5-5.1) 06/08/17 04:10 Chloride 101 mmol/L (98-107) 06/08/17 04:10 Carbon Dioxide 25.7 mmol/L (21-32) 06/08/17 04:10 BUN 21 mg/dL (7-18) H 06/08/17 04:10 Creatinine 0.99 mg/dL (0.70-1.30) 06/08/17 04:10 Est GFR (MDRD) Af Amer > 60 (>60) 06/08/17 04:10 Est GFR (MDRD) Non-Af > 60 (>60) 06/08/17 04:10 Glucose 87 mg/dL (65-99) 06/08/17 04:10 POC Glucose (mg/dL) 96 mg/dL (65-99) 06/07/17 10:01 Calcium 9.5 mg/dL (8.5-10.1) 06/08/17 04:10 Corrected Calcium 10.1 mg/dL (8.5-10.1) 06/08/17 04:10 Total Bilirubin 0.50 mg/dL (0.2-1.0) 06/08/17 04:10 AST 11 Units/L (15-37) L 06/08/17 04:10 ALT 14 Units/L (12-78) 06/08/17 04:10 Alkaline Phosphatase 48 Units/L (46-116) 06/08/17 04:10 Creatine Kinase 57 Units/L (39-308) 06/07/17 10:12 CK-MB (CK-2) 1.0 ng/mL (0-4.0) 06/07/17 10:12 CK/CKMB % Calc 1.8 % (<4) 06/07/17 10:12 Troponin I < 0.02 ng/mL (0-1.5) 06/07/17 10:12 Total Protein 7.9 g/dL (6.4-8.2) 06/08/17 04:10 Albumin 3.2 g/dL (3.4-5.0) L 06/08/17 04:10 Globulin 4.7 g/dL (2.5-4.5) H 06/08/17 04:10 Albumin/Globulin Ratio 0.7 Ratio (1.1-2.1) L 06/08/17 04:10 Specimen Type Clean catch urine 06/07/17 00:22 Urine Color Yellow (YELLOW) 06/07/17 00:22 Urine Appearance Clear (CLEAR) 06/07/17 00:22 Urine pH 5.0 (5.0 - 8.0) 06/07/17 00:22 Ur Specific [place] 1.030 (1.000-1.030) 06/07/17 00:22 Urine Protein 2+ (NEGATIVE) 06/07/17 00:22 Urine Glucose (UA) Negative (NEGATIVE) 06/07/17 00:22 Urine Ketones 1+ (NEGATIVE) 06/07/17 00: Urine Occult Blood 1+ (NEGATIVE) 06/07/17 00:22 Urine Nitrite Negative (NEGATIVE) 06/07/17 00:22 Urine Bilirubin Negative (NEGATIVE) 06/07/17 00:22 Urine Urobilinogen Normal (NORMAL) 06/07/17 00:22 Ur Leukocyte Esterase Negative (NEGATIVE) 06/07/17 00:22 Urine RBC 5-10 /HPF (NONE SEEN) 06/07/17 00:22 Urine WBC 0-2 /HPF (NONE SEEN) 06/07/17 00:22 Ur Squamous Epith Cells Moderate /HPF (NEGATIVE) 06/07/17 00:22 Urine Bacteria Trace /HPF (NEGATIVE) 06/07/17 00:22 Hyaline Casts Few /LPF (NEGATIVE) 06/07/17 00:22 Urine Mucus Few /HPF (NEGATIVE) 06/07/17 00:22 Ur Culture Indicated? No/not indicated 06/07/17 00:22 Random Tobramycin 3.6 ug/mL 06/07/17 00:25 Post-dose Tobramycin 2.7 06/08/17 12:14 - Plan (1) Status post insertion of percutaneous endoscopic gastrostomy (PEG) tube Status: Acute Plan: FEEDING PER PEG TUBE AT 40ML/HR, CONTINUE TO MONITOR FOR S/SX INFECTION (2) Dysphagia Status: Acute Qualifiers: Dysphagia type: unspecified Qualified Code(s): R13.10 - Dysphagia, unspecified Plan: STATUS POST PLACEMENT OF PEG TUBE, CONTINUE TO MONITOR (3) Generalized weakness Status: Acute Plan: ALBUMIN 25% IV DAILY, PROCAL AT 40ML/HR, CONTINUE TO MONITOR
== END 2017-06-08 15:55 ==
LOC: MED/SURG 10:28 → UNDOADMOB 10:28 → MED/SURG 11:10
PROVIDERS: ADMIT Internal Medicine; ATTEND Internal Medicine
PROC: 0DH63UZ Insertion of Feeding Device into Stomach, Percutaneous Approach (ICD-10-PCS; principal; 2017-06-06 14:00)
DX: R13.12 Dysphagia, oropharyngeal phase (principal); R53.1 Weakness; D64.89 Other specified anemias; J44.9 Chronic obstructive pulmonary disease, unspecified; F32.89 Other specified depressive episodes; K21.9 Gastro-esophageal reflux disease without esophagitis; I10 Essential (primary) hypertension; R94.31 Abnormal electrocardiogram [ECG] [EKG]; K44.9 Diaphragmatic hernia without obstruction or gangrene; Z87.898 Personal history of other specified conditions; Z79.899 Other long term (current) drug therapy
CPT/HCPCS: 36415; 71045; 80053; 80200; 81001; 82550; 82553; 84484; 85025; 93005; 94640; 94760; 99100; A4222; B5200; P9047; A4217; G0378; J1170; J1650; J3260; J3490; J7042; J7644

== ENCOUNTER 2017-09-15 09:05 | Observation (INO) ==
[2017-09-15] MEDS ORDERED: NS 1000 ML 1,000 ML IV SCH (12:01)
[2017-09-15 13:09] VITALS: BMI 25.2
[2017-09-15 13:43] LABS: BILIRUBIN,URINE NEGATIVE (NEGATIVE); BLOOD/HEMOGLOBIN,URINE 1+ (NEGATIVE); GLUCOSE, URINE NEGATIVE (NEGATIVE); KETONES,URINE NEGATIVE (NEGATIVE); LEUKOCYTE ESTERASE ,URINE 1+ (NEGATIVE); NITRITES,URINE NEGATIVE (NEGATIVE); PROTEIN,URINE 1+ (NEGATIVE); UROBILINOGEN,URINE 1+ (NORMAL)
[2017-09-15 13:45] LABS: APPEARANCE,URINE CLEAR (CLEAR); COLOR,URINE YELLOW (YELLOW)
[2017-09-15 13:53] LABS: BASOPHILS % (AUTO) 0.3 % (0.2-1.0); EOSINOPHILS # (AUTO) 0.1 x10^3/uL (0.0-0.2); EOSINOPHILS % (AUTO) 0.4 % (0.9-2.9); HEMATOCRIT 35.4 % (42.0-54.0); HEMOGLOBIN 12.3 g/dL (13.5-18.0); LYMPHOCYTES # (AUTO) 1.9 X10^3/uL (1.3-2.9); LYMPHOCYTES % (AUTO) 13.9 % (21.0-51.0); MEAN CORPUSCULAR HEMOGLOBIN 29.5 pg (27.0-34.0); MEAN CORPUSCULAR HGB CONC 34.7 g/dL (33.0-35.0); MEAN PLATELET VOLUME 8.5 fL (7.4-11.0); MONOCYTES # (AUTO) 1.4 x10^3/uL (0.3-0.8); MONOCYTES % (AUTO) 9.8 % (0.0-13.0); NEUTROPHILS # (AUTO) 10.5 x10^3/uL (2.2-4.8); NEUTROPHILS % (AUTO) 75.6 % (42.0-75.0); PLATELET COUNT 205 X10^3/uL (150.0-450.0); RED BLOOD COUNT 4.16 X10^6/uL (4.7-6.0); RED CELL DISTRIBUTION WIDTH 16.7 % (11.6-16.5); WHITE BLOOD COUNT 13.9 X10^3/uL (3.6-10.0)
[2017-09-15 13:54] LABS: BACTERIA,URINE NEGATIVE /HPF (NEGATIVE); SQUAMOUS EPITHELIAL CELL,UR RARE /HPF (NEGATIVE)
[2017-09-15 13:55] LABS: AMORPHOUS SEDIMENT,UR TRACE /HPF (NEGATIVE)
[2017-09-15 13:56] LABS: HYALINE CASTS, URINE MANY /LPF (NEGATIVE)
[2017-09-15 14:01] LABS: ALANINE AMINOTRANSFERASE 19 Units/L (12-78); ALBUMIN 2.7 g/dL (3.4-5.0); ALKALINE PHOSPHATASE 51 Units/L (46-116); ASPARTATE AMINO TRANSFERASE 14 Units/L (15-37); BLOOD UREA NITROGEN 20 mg/dL (7-18); CALCIUM 9.7 mg/dL (8.5-10.1); CARBON DIOXIDE 30.9 mmol/L (21-32); CHLORIDE 103 mmol/L (98-107); COR CA(FOR HYPOALB) 10.7 mg/dL (8.5-10.1); CREATININE 1.21 mg/dL (0.70-1.30); SODIUM 140 mmol/L (136-145); TOTAL PROTEIN 7.3 g/dL (6.4-8.2); eGFR NON BLACK RACES > 60 (>60)
[2017-09-15] MEDS: NS 1000 ML 1,000 ML IV SCH (14:29)
--- NOTE | 2017-09-15 14:39 | RAD ---
Indication: Shortness of breath Exam: Portable chest Comparison: 07/29/2017 Findings: The heart is normal. The pulmonary vessels are normal. There is overlying EKG lead artifact . No consolidation or effusion is seen. The bones are intact. Impression: Overlying EKG lead artifact otherwise, stable with no acute abnormality seen. Reported By:
[2017-09-15] MEDS: FORTAZ or TAZICEF VIAL INJ 1 G in NS 100 ML IV + SPIKE MINIBAG* 100 ML IV SCH ×2 (16:13→22:08)
[2017-09-15] MEDS: XANAX PEG PRN (22:08)
[2017-09-16] MEDS ORDERED: TYLENOL 325 MG TAB PO PRN (00:32)
[2017-09-16] MEDS: NS 1000 ML 1,000 ML IV SCH ×3 (03:44→16:41)
[2017-09-16] MEDS: FORTAZ or TAZICEF VIAL INJ 1 G in NS 100 ML IV + SPIKE MINIBAG* 100 ML IV SCH ×3 (05:59→20:59)
[2017-09-16 06:31] LABS: BASOPHILS # (AUTO) 0.1 X10^3/uL (0.0-0.1); BASOPHILS % (AUTO) 0.5 % (0.2-1.0); EOSINOPHILS # (AUTO) 0.1 x10^3/uL (0.0-0.2); EOSINOPHILS % (AUTO) 1.2 % (0.9-2.9); HEMATOCRIT 34.5 % (42.0-54.0); HEMOGLOBIN 11.8 g/dL (13.5-18.0); LYMPHOCYTES # (AUTO) 1.6 X10^3/uL (1.3-2.9); LYMPHOCYTES % (AUTO) 13.1 % (21.0-51.0); MEAN CORPUSCULAR HEMOGLOBIN 29.1 pg (27.0-34.0); MEAN CORPUSCULAR HGB CONC 34.1 g/dL (33.0-35.0); MEAN CORPUSCULAR VOLUME 85.2 fL (80.0-100.0); MEAN PLATELET VOLUME 8.4 fL (7.4-11.0); MONOCYTES # (AUTO) 1.2 x10^3/uL (0.3-0.8); MONOCYTES % (AUTO) 10.1 % (0.0-13.0); NEUTROPHILS % (AUTO) 75.1 % (42.0-75.0); PLATELET COUNT 207 X10^3/uL (150.0-450.0); RED BLOOD COUNT 4.04 X10^6/uL (4.7-6.0); RED CELL DISTRIBUTION WIDTH 16.3 % (11.6-16.5); WHITE BLOOD COUNT 11.9 X10^3/uL (3.6-10.0)
[2017-09-16 06:37] LABS: ALANINE AMINOTRANSFERASE 18 Units/L (12-78); ALBUMIN 2.5 g/dL (3.4-5.0); ALKALINE PHOSPHATASE 50 Units/L (46-116); ASPARTATE AMINO TRANSFERASE 17 Units/L (15-37); BLOOD UREA NITROGEN 22 mg/dL (7-18); CARBON DIOXIDE 26.3 mmol/L (21-32); CHLORIDE 105 mmol/L (98-107); COR CA(FOR HYPOALB) 10.2 mg/dL (8.5-10.1); CREATININE 1.03 mg/dL (0.70-1.30); SODIUM 141 mmol/L (136-145); eGFR NON BLACK RACES > 60 (>60)
[2017-09-16] MEDS ORDERED: DUONEB 0.5 MG/3 MG IN PRN (07:23)
[2017-09-16] MEDS ORDERED: XANAX PO PRN (07:23)
--- NOTE | 2017-09-16 07:28 | DR.H&P ---
H&P - History & Physical for Day of: H&P Date: 09/15/17 - Chief Complaint Chief Complaint: chest congestion - History of Present Illness History of Present Illness: 72 [address] VELÁZQUEZ FROM [facility] WITH CO CHEST CONGESTION WORSE OVER LAST FEW DAYS. PT HAS PMH OF CVA, HTN, OA, GERD, CAD, COPD. PT HAS PRODUCTIVE COUGH AND DIMINISHED LUNG BASES. PLAN TO ADMIT FOR TREATMENT OF BRONCHITIS, IV ATBX, RESP THERAPY - Past Medical History Past Medical History: COPD, CVA, Depression, GERD, Hypertension Additional Medical History: Prostate Cancer, Chronic Cholelithiasis - Past Surgical History Surgical History: Cholecystectomy, Ortho Surgery Additional Surgical History: Prostatectomy, Hiatal Hernia Repair, Left Knee - Family History Family Medical History: Cancer - Social History Does patient currently use any type of tobacco product: No Have you used tobacco products in the last 12 months: No Type of Tobacco Use: None Does any household member use tobacco: No Alcohol Use: None Drug Use: None - Medications Home Medications: No Known Drug Allergies Allergy (Verified 09/09/16 12:13) CONTINUE taking the following medications alprazolam [Xanax] 1 tab FEEDING TUBE Q12H PRN 09/15/17 [History] budesonide-formoterol [Symbicort] 2 puff INHALATION BID 09/15/17 [History] docusate sodium 200 mg FEEDING TUBE DAILY 09/15/17 [History] ipratropium-albuterol 1 unit INHALATION Q8H PRN 09/15/17 [History] valproic acid (as sodium salt) 2 tsp FEEDING TUBE TID 09/15/17 [History] - Review of Systems Constitutional: Weakness Eyes: No Symptoms Reported ENT: No Symptoms Reported Respiratory: Cough, Sputum, Wheezing Cardiovascular: No Symptoms Reported Gastrointestinal: No Symptoms Reported Genitourinary: Incontinence Musculoskeletal: Back Pain, Leg Pain Skin: No Symptoms Reported Neurological: Weakness - Physical Exam Vital Signs: Temperature 98.2 F Pulse Rate [Left Brachial] 86 Respiratory Rate 28 Blood Pressure [Left Arm] 145/66 Blood Pressure [Right Arm] 117/85 Blood Pressure 98/55 O2 Sat by Pulse Oximetry 98 Oriented: Person Eyes: Normal Ear: Normal Nose: Normal Throat: Dry Respiratory: Rhonchi Throughout Cardiovascular: Normal : Normal Auscultation: Bowel Sounds: Normal Palpation: Normal Tenderness: Normal Skin: Decreased Turgur Psychiatric: Depression Mood Description: Depressed Affect: Depressed Speech Pattern: Delayed - Assessment/Plan (1) Bronchitis Status: Acute Plan: ADMIT, PNEUMONIA PROTOCOL. SPUTUM CULTURE, IV ATBX, RESP THERAPY, SUPPLEMENTAL O2. JET NEBS, GENTLE HYDRATION. ADMISSION LABS, REPEAT AM CBC CMP CXR. VERIFY AND RESUME HOME MEDS (2) Status post CVA Status: Acute (3) Dysphagia Qualifiers: Status: Acute (4) Generalized weakness Status: Acute (5) Hypertension Qualifiers: Status: Chronic (6) Dementia Qualifiers: Status: Chronic (7) Depression Qualifiers: Status: Chronic (8) Hx of prostatic malignancy Status: Chronic - Allergies Allergies/Adverse Reactions: Allergies Allergy/AdvReac Type Severity Reaction Status Date / Time No Known Drug Allergies Allergy Verified 09/09/16 12:13
[2017-09-16] MEDS ORDERED: FLONASE NASAL SPRAY ENOSTRIL SCH (09:00)
[2017-09-16] MEDS: COLACE SYRUP 100 MG UDC PO SCH (09:18)
[2017-09-16] MEDS: FLONASE NASAL SPRAY ENOSTRIL SCH ×2 (09:18→20:46)
[2017-09-16] MEDS: SINGULAIR TAB 10 MG PO SCH (09:19)
[2017-09-16] MEDS: GEODON PO SCH ×2 (09:19→20:46)
[2017-09-16] MEDS: LASIX PO SCH ×2 (09:19→20:47)
[2017-09-16] MEDS: ELIQUIS PO SCH ×2 (09:20→20:46)
[2017-09-16] MEDS: EFFEXOR XR 150 MG CAP PO SCH (09:20)
[2017-09-16] MEDS: ZANTAC PO SCH ×2 (09:20→20:57)
[2017-09-16] MEDS: XANAX PEG PRN ×2 (09:20→20:47)
[2017-09-16] MEDS: LOPRESSOR TAB 25 MG PO SCH ×2 (09:20→20:47)
[2017-09-16] MEDS: TUSSIONEX PENNKINETIC SUSP PO PRN (09:21)
[2017-09-16] MEDS: PATIENT'S HOME MEDICATION (Budesonide-Formoterol 2 PUFF) IN SCH ×2 (12:03→21:16)
[2017-09-16] MEDS: DUONEB 0.5 MG/3 MG IN PRN ×2 (12:03→20:34)
[2017-09-16] MEDS: VALPROIC ACID Feeding Tube SCH ×2 (14:20→20:59)
[2017-09-16] MEDS: PULMICORT NEB TX 0.5 MG NEB SCH (20:34)
[2017-09-16] MEDS: ARICEPT TAB 10 MG PO SCH (20:46)
[2017-09-16] MEDS: NAMENDA TAB 10 MG PO SCH (20:57)
[2017-09-17 05:27] LABS: BASOPHILS # (AUTO) 0.1 X10^3/uL (0.0-0.1); BASOPHILS % (AUTO) 0.7 % (0.2-1.0); EOSINOPHILS # (AUTO) 0.3 x10^3/uL (0.0-0.2); EOSINOPHILS % (AUTO) 3.3 % (0.9-2.9); HEMATOCRIT 34.1 % (42.0-54.0); HEMOGLOBIN 11.7 g/dL (13.5-18.0); LYMPHOCYTES # (AUTO) 1.5 X10^3/uL (1.3-2.9); LYMPHOCYTES % (AUTO) 16.7 % (21.0-51.0); MEAN CORPUSCULAR HEMOGLOBIN 29.5 pg (27.0-34.0); MEAN CORPUSCULAR HGB CONC 34.5 g/dL (33.0-35.0); MEAN CORPUSCULAR VOLUME 85.6 fL (80.0-100.0); MEAN PLATELET VOLUME 8.7 fL (7.4-11.0); MONOCYTES # (AUTO) 1.1 x10^3/uL (0.3-0.8); MONOCYTES % (AUTO) 12.5 % (0.0-13.0); NEUTROPHILS # (AUTO) 5.9 x10^3/uL (2.2-4.8); NEUTROPHILS % (AUTO) 66.8 % (42.0-75.0); PLATELET COUNT 204 X10^3/uL (150.0-450.0); RED BLOOD COUNT 3.98 X10^6/uL (4.7-6.0); RED CELL DISTRIBUTION WIDTH 16.5 % (11.6-16.5); WHITE BLOOD COUNT 8.8 X10^3/uL (3.6-10.0)
[2017-09-17 05:58] LABS: ALANINE AMINOTRANSFERASE 19 Units/L (12-78); ALBUMIN 2.5 g/dL (3.4-5.0); ALKALINE PHOSPHATASE 50 Units/L (46-116); ASPARTATE AMINO TRANSFERASE 28 Units/L (15-37); BLOOD UREA NITROGEN 23 mg/dL (7-18); CALCIUM 9.5 mg/dL (8.5-10.1); CARBON DIOXIDE 28.9 mmol/L (21-32); CHLORIDE 107 mmol/L (98-107); COR CA(FOR HYPOALB) 10.7 mg/dL (8.5-10.1); CREATININE 0.93 mg/dL (0.70-1.30); SODIUM 144 mmol/L (136-145); TOTAL PROTEIN 7.1 g/dL (6.4-8.2); eGFR NON BLACK RACES > 60 (>60)
[2017-09-17] MEDS: VALPROIC ACID Feeding Tube SCH ×3 (06:08→21:41)
--- NOTE | 2017-09-17 06:41 | RAD ---
Examination: Portable AP chest History: Pneumonia Comparison reference 09/15/2017 Findings: Continued normal heart size with essentially clear lungs and pleural spaces. Radiographic d etail limited by motion artifact. Impression: No definite change or new abnormality demonstrated. Reported By:
[2017-09-17] MEDS: FORTAZ or TAZICEF VIAL INJ 1 G in NS 100 ML IV + SPIKE MINIBAG* 100 ML IV SCH ×4 (06:44→21:44)
[2017-09-17] MEDS: PATIENT'S HOME MEDICATION (Budesonide-Formoterol 2 PUFF) IN SCH ×2 (08:41→23:03)
[2017-09-17] MEDS: DUONEB 0.5 MG/3 MG IN PRN ×2 (08:41→21:29)
[2017-09-17] MEDS: PULMICORT NEB TX 0.5 MG NEB SCH ×2 (08:41→21:29)
[2017-09-17] MEDS: FLONASE NASAL SPRAY ENOSTRIL SCH ×2 (10:08→21:41)
[2017-09-17] MEDS: GEODON PO SCH ×2 (10:09→21:43)
[2017-09-17] MEDS: SINGULAIR TAB 10 MG PO SCH (10:09)
[2017-09-17] MEDS: LASIX PO SCH ×2 (10:09→21:43)
[2017-09-17] MEDS: EFFEXOR XR 150 MG CAP PO SCH (10:10)
[2017-09-17] MEDS: COLACE SYRUP 100 MG UDC PO SCH (10:10)
[2017-09-17] MEDS: ELIQUIS PO SCH ×2 (10:10→21:40)
[2017-09-17] MEDS: XANAX PEG PRN ×2 (10:10→21:45)
[2017-09-17] MEDS: LOPRESSOR TAB 25 MG PO SCH ×2 (10:10→21:43)
[2017-09-17] MEDS: ZANTAC PO SCH ×2 (10:10→21:44)
[2017-09-17] MEDS: NS 1000 ML 1,000 ML IV SCH ×2 (10:11→21:44)
[2017-09-17] MEDS: ARICEPT TAB 10 MG PO SCH (21:39)
[2017-09-17] MEDS: NAMENDA TAB 10 MG PO SCH (21:43)
[2017-09-17] MEDS: PROTONIX INJ 40 MG VIAL IVP SCH (21:44)
[2017-09-17] MEDS: TUSSIONEX PENNKINETIC SUSP PO PRN (21:45)
[2017-09-18 05:29] LABS: BASOPHILS % (AUTO) 0.6 % (0.2-1.0); EOSINOPHILS # (AUTO) 0.4 x10^3/uL (0.0-0.2); EOSINOPHILS % (AUTO) 5.6 % (0.9-2.9); HEMATOCRIT 33.8 % (42.0-54.0); HEMOGLOBIN 11.5 g/dL (13.5-18.0); LYMPHOCYTES # (AUTO) 1.8 X10^3/uL (1.3-2.9); LYMPHOCYTES % (AUTO) 24.4 % (21.0-51.0); MEAN CORPUSCULAR HEMOGLOBIN 29.3 pg (27.0-34.0); MEAN CORPUSCULAR HGB CONC 34.2 g/dL (33.0-35.0); MEAN CORPUSCULAR VOLUME 85.8 fL (80.0-100.0); MEAN PLATELET VOLUME 8.7 fL (7.4-11.0); MONOCYTES # (AUTO) 0.9 x10^3/uL (0.3-0.8); MONOCYTES % (AUTO) 11.3 % (0.0-13.0); NEUTROPHILS # (AUTO) 4.4 x10^3/uL (2.2-4.8); NEUTROPHILS % (AUTO) 58.1 % (42.0-75.0); PLATELET COUNT 162 X10^3/uL (150.0-450.0); RED BLOOD COUNT 3.94 X10^6/uL (4.7-6.0); RED CELL DISTRIBUTION WIDTH 16.4 % (11.6-16.5); WHITE BLOOD COUNT 7.6 X10^3/uL (3.6-10.0)
[2017-09-18 05:30] LABS: ALANINE AMINOTRANSFERASE 18 Units/L (12-78); ALBUMIN 2.3 g/dL (3.4-5.0); ALKALINE PHOSPHATASE 45 Units/L (46-116); ASPARTATE AMINO TRANSFERASE 23 Units/L (15-37); BLOOD UREA NITROGEN 19 mg/dL (7-18); CALCIUM 9.3 mg/dL (8.5-10.1); CARBON DIOXIDE 30.8 mmol/L (21-32); CHLORIDE 108 mmol/L (98-107); COR CA(FOR HYPOALB) 10.7 mg/dL (8.5-10.1); CREATININE 0.97 mg/dL (0.70-1.30); SODIUM 144 mmol/L (136-145); TOTAL PROTEIN 6.6 g/dL (6.4-8.2); eGFR NON BLACK RACES > 60 (>60)
[2017-09-18] MEDS: VALPROIC ACID Feeding Tube SCH (06:31)
[2017-09-18] MEDS: FORTAZ or TAZICEF VIAL INJ 1 G in NS 100 ML IV + SPIKE MINIBAG* 100 ML IV SCH (06:31)
[2017-09-18] MEDS: FLONASE NASAL SPRAY ENOSTRIL SCH ×2 (08:10→10:24)
--- NOTE | 2017-09-18 08:21 | RAD ---
HISTORY: Persistent cough. Prostate cancer. Study: AP portable chest Comparison: 09/17/2017 Findings: The lungs remain clear. The heart size is normal. Mild convex right thoracic scoliosis is present. IMPRESSION: 1. No radiographic evidence of acute cardiopulmonary disease or significant change is noted when co mpared to the prior examination. Reported By:
--- NOTE | 2017-09-18 08:50 | PCM.PROG ---
Progress Note - Progress Note for Day of Date of Exam: 09/17/17 - Subjective Subjective: 72 WM ADMISSION FROM [facility] WITH ACUTE BRONCHITIS. PT CURRENTLY ON IV ATBX, RESP THERAPY, SUPPLEMENTAL O2, PG TUBE FEEDINGS. PT CALM THIS AM, IMPROVING CHEST CONGESTION, IMPROVED WBC THIS AM. WILL CONTINUE PULMONARY TOILETING, RESP THERAPY AND IV ATBX. - Past Medical Family Social History Past Med/Fam/Surg Hx: No changes since H&P Allergies: Allergies No Known Drug Allergies Allergy (Verified 09/09/16 12:13) - Review of Systems ROS: No change since H&P - Vital Signs and I&O's Vital Signs: Temperature 98.5 F Pulse Rate [Left Brachial] 62 Pulse Rate 72 Respiratory Rate 18 Blood Pressure [Left Arm] 115/58 Blood Pressure [Right Arm] 117/85 Blood Pressure 98/55 O2 Sat by Pulse Oximetry 97 Intake and Output: Intake & Output 09/15/17 09/16/17 09/17/17 09/18/17 11:59 11:59 11:59 11:59 Intake Total 916 / 916 1695 / 1695 1111 / 1111 Output Total 1000 / 1000 1200 / 1200 1300 / 1300 Balance -84 / -84 495 / 495 -189 / -189 - Physical Exam Oriented: Person Eyes: Normal Ear: Normal Nose: Normal Throat: Dry Respiratory: Diminished, Rhonchi Cardiovascular: Normal : Normal Auscultation: Bowel Sounds: Normal Tenderness: Normal Skin: Decreased Turgur Musculoskeletal: Motor Deficit, Sensory Deficit Psychiatric: Depression Mood Description: Depressed Affect: Depressed Speech Pattern: Aphasic - Laboratory and Diagnostics Result Diagrams: 09/18/17 04:40 09/18/17 04:40 Labs: 09/15/17 12:27 Blood Blood Culture - Preliminary 09/15/17 12:19 Blood Blood Culture - Preliminary 09/16/17 00:51 Sputum - Endotracheal Wash Sputum Culture - Preliminary 09/16/17 00:51 Sputum - Endotracheal Wash - Final 09/15/17 12:45 Urine,Clean Catch Urine Culture - Final 09/15/17 14:26 Sputum - Endotracheal Wash Sputum Culture - Final 09/15/17 14:26 Sputum - Endotracheal Wash - Final Laboratory WBC 7.6 X10^3/uL (3.6-10.0) 09/18/17 04:40 RBC 3.94 X10^6/uL (4.7-6.0) L 09/18/17 04:40 Hgb 11.5 g/dL (13.5-18.0) L 09/18/17 04:40 Hct 33.8 % (42.0-54.0) L 09/18/17 04:40 MCV 85.8 fL (80.0-100.0) 09/18/17 04:40 MCH 29.3 pg (27.0-34.0) 09/18/17 04:40 MCHC 34.2 g/dL (33.0-35.0) 09/18/17 04:40 RDW 16.4 % (11.6-16.5) 09/18/17 04:40 Plt Count 162 X10^3/uL (150.0-450.0) 09/18/17 04:40 MPV 8.7 fL (7.4-11.0) 09/18/17 04:40 Neut % (Auto) 58.1 % (42.0-75.0) 09/18/17 04:40 Lymph % (Auto) 24.4 % (21.0-51.0) 09/18/17 04:40 Glades % (Auto) 11.3 % (0.0-13.0) 09/18/17 04:40 Eos % (Auto) 5.6 % (0.9-2.9) H 09/18/17 04:40 Baso % (Auto) 0.6 % (0.2-1.0) 09/18/17 04:40 Neut # (Auto) 4.4 x10^3/uL (2.2-4.8) 09/18/17 04:40 Lymph # (Auto) 1.8 X10^3/uL (1.3-2.9) 09/18/17 04:40 Glades # (Auto) 0.9 x10^3/uL (0.3-0.8) H 09/18/17 04:40 Eos # (Auto) 0.4 x10^3/uL (0.0-0.2) H 09/18/17 04:40 Baso # (Auto) 0.0 X10^3/uL (0.0-0.1) 09/18/17 04:40 Absolute Nucleated RBC 0.1 /100WBC 09/18/17 04:40 Sodium 144 mmol/L (136-145) 09/18/17 04:40 Corrected Sodium TNP 09/18/17 04:40 Potassium 4.0 mmol/L (3.5-5.1) 09/18/17 04:40 Chloride 108 mmol/L (98-107) H 09/18/17 04:40 Carbon Dioxide 30.8 mmol/L (21-32) 09/18/17 04:40 BUN 19 mg/dL (7-18) H 09/18/17 04:40 Creatinine 0.97 mg/dL (0.70-1.30) 09/18/17 04:40 Est GFR (MDRD) Af Amer > 60 (>60) 09/18/17 04:40 Est GFR (MDRD) Non-Af > 60 (>60) 09/18/17 04:40 Glucose 76 mg/dL (65-99) 09/18/17 04:40 Calcium 9.3 mg/dL (8.5-10.1) 09/18/17 04:40 Corrected Calcium 10.7 mg/dL (8.5-10.1) H 09/18/17 04:40 Total Bilirubin 0.30 mg/dL (0.2-1.0) 09/18/17 04:40 AST 23 Units/L (15-37) 09/18/17 04:40 ALT 18 Units/L (12-78) 09/18/17 04:40 Alkaline Phosphatase 45 Units/L (46-116) L 09/18/17 04:40 Total Protein 6.6 g/dL (6.4-8.2) 09/18/17 04:40 Albumin 2.3 g/dL (3.4-5.0) L 09/18/17 04:40 Globulin 4.3 g/dL (2.5-4.5) 09/18/17 04:40 Albumin/Globulin Ratio 0.5 Ratio (1.1-2.1) L 09/18/17 04:40 Specimen Type Catherized urine 09/15/17 12:45 Urine Color Yellow (YELLOW) 09/15/17 12:45 Urine Appearance Clear (CLEAR) 09/15/17 12:45 Urine pH 7.0 (5.0 - 8.0) 09/15/17 12:45 Ur Specific Tatum 1.010 (1.000-1.030) 09/15/17 12:45 Urine Protein 1+ (NEGATIVE) 09/15/17 12:45 Urine Glucose (UA) Negative (NEGATIVE) 09/15/17 12:45 Urine Ketones Negative (NEGATIVE) 09/15/17 12:45 Urine Occult Blood 1+ (NEGATIVE) 09/15/17 12:45 Urine Nitrite Negative (NEGATIVE) 09/15/17 12:45 Urine Bilirubin Negative (NEGATIVE) 09/15/17 12:45 Urine Urobilinogen 1+ (NORMAL) 09/15/17 12:45 Ur Leukocyte Esterase 1+ (NEGATIVE) 09/15/17 12:45 Urine RBC 3-5 /HPF (NONE SEEN) 09/15/17 12:45 Urine WBC 3-5 /HPF (NONE SEEN) 09/15/17 12:45 Ur Squamous Epith Cells Rare /HPF (NEGATIVE) 09/15/17 12:45 Amorphous Sediment Trace /HPF (NEGATIVE) 09/15/17 12:45 Urine Bacteria Negative /HPF (NEGATIVE) 09/15/17 12:45 Hyaline Casts Many /LPF (NEGATIVE) 09/15/17 12:45 Ur Culture Indicated? No/not indicated 09/15/17 12:45 - Plan (1) Bronchitis Status: Acute Plan: PNEUMONIA PROTOCOL. SPUTUM CULTURE, IV ATBX, RESP THERAPY, SUPPLEMENTAL O2. JET NEBS, GENTLE HYDRATION. ADMISSION LABS, REPEAT AM CBC CMP CXR. PEG TUBE FEEDINGS, CARE (2) Status post CVA Status: Acute (3) Dysphagia Status: Acute Qualifiers: (4) Generalized weakness Status: Acute (5) Hypertension Status: Chronic Qualifiers: (6) Dementia Status: Chronic Qualifiers: (7) Depression Status: Chronic Qualifiers: (8) Hx of prostatic malignancy Status: Chronic
[2017-09-18] MEDS: PATIENT'S HOME MEDICATION (Budesonide-Formoterol 2 PUFF) IN SCH (08:53)
[2017-09-18] MEDS: PULMICORT NEB TX 0.5 MG NEB SCH (08:53)
[2017-09-18] MEDS: COLACE SYRUP 100 MG UDC PO SCH (09:01)
[2017-09-18] MEDS: SINGULAIR TAB 10 MG PO SCH (09:02)
[2017-09-18] MEDS: ZANTAC PO SCH (09:02)
[2017-09-18] MEDS: LOPRESSOR TAB 25 MG PO SCH (09:03)
[2017-09-18] MEDS: PROTONIX INJ 40 MG VIAL IVP SCH (09:03)
[2017-09-18] MEDS: LASIX PO SCH (09:03)
[2017-09-18] MEDS: GEODON PO SCH (09:04)
[2017-09-18] MEDS: ELIQUIS PO SCH (09:04)
[2017-09-18] MEDS: EFFEXOR XR 150 MG CAP PO SCH (09:05)
[2017-09-18] MEDS ORDERED: HALDOL INJ IM ONE (09:36)
[2017-09-18 10:23] VITALS: BP 107/57
[2017-09-18] MEDS: NS 1000 ML 1,000 ML IV SCH (11:10)
[2017-10-08] MEDS ORDERED: THORAZINE TAB 25 MG PO ONE (21:16)
--- NOTE | 2017-10-14 14:09 | DR.CARTERD ---
- Discharge Summary for: Discharge Summary for Date of:: 09/18/17 - Admission Date Date of Admission: 09/15/17 - Admission Diagnoses Admission Diagnosis: (1) Bronchopneumonia (2) Status post CVA (3) Dysphagia (4) Generalized weakness (5) Hypertension (6) Dementia (7) Depression (8) Hx of prostatic malignancy - Discharge Date Discharge Date: 09/18/17 - Discharge Diagnoses Discharge Diagnosis: (1) Bronchopneumonia (2) Status post CVA (3) Dysphagia (4) Generalized weakness (5) Hypertension (6) Dementia (7) Depression (8) Hx of prostatic malignancy - Hospital Course Hospital Course: Day one, Mr. Driscoll presented to the hospital as a direct admission from the intermediate. alf staff reported patient had a fever, cough, and altered mental status for the last several days. On auscultation of lung desai patient noted with rhonchi throughout. Medical History: Dysphagia, CVA, Hyperlipidemia, Hypertension, Pneumonia, COPD, Gerd, BPH, Prostate CA, Muscle Weakness, Anxiety, Depression, Schizophrenia. Abnormal Labs: WBC 13.9, RBC 4.16 , Hgb 12.3, Hct 35.4, RDW 16.7, BUN 20, Glucose 104, Corrected Calcium 10.7, AST 14, Albumin 2.7, Globulin 4.6, A/G Ratio 0.6. Urinalysis: Catherized, Protein 1+, Occult Blood 1+, Urobilinogen 1+, Leuk ESt 1+, RBC 3-5, WBC 3-5, Sediment Trace, Hyaline Casts Many, Culture obtained. Blood Cultures x2 obtained. Chest X-Ray: Overlying EKG lead artifact otherwise, stable with no acute abnormality seen. Patient admitted to the hospital for further evaluation and treatment. Day two, patient's white count was 13.9 on admission and had improved to 11.9. Patient's renal function was normal. He continued on IV antibiotics and neb treatments. Patient was awake, alert, and oriented to himself however had limited verbal response. On auscultation, lungs were noted with diffuse rhonchi and diminished lung bases. Heart revealed a regular rate of rhythm. Abdomen was soft, nontender with a feeding tube present. He had no lower extremity edema noted. Patient had some mild generalized weakness. No acute distress was noted. Day three, patient continued with cough and was noted with mild shortness of breath at rest. On auscultation, lungs were diminished with scattered rhonchi throughout. Sputum culture reported growth of Proteus Mirabilis and Acinetobacter Baumanii/Haemoly. Organisms were sensitive to Fortaz , which patient was receiving. Treatment was continued. Day four, patient reported he was feeling better. No acute distress was noted. He denied shortness of breath. On auscultation, lungs were noted with scattered rhonchi to upper lobes. Vital signs stable. Labs wnl, white count normal. We planned for discharge with oral antibiotics. Instructions for medications and follow up were discussed with patient and family, both voiced understanding. Patient discharged to [facility] in stable condition with staff. Labs: Microbiology 09/16/17 00:51 Sputum - Endotracheal Wash Sputum Culture - Final 09/16/17 00:51 Sputum - Endotracheal Wash - Final Proteus Mirabilis Acinetobacter Baumanii/Haemoly - Discharge Medications Discharge Medications: Home Medication List alprazolam [Xanax] 1 tab FEEDING TUBE Q12H PRN 09/15/17 [History] budesonide-formoterol [Symbicort] 2 puff INHALATION BID 09/15/17 [History] docusate sodium 200 mg FEEDING TUBE DAILY 09/15/17 [History] ipratropium-albuterol 1 unit INHALATION Q8H PRN 09/15/17 [History] valproic acid (as sodium salt) 2 tsp FEEDING TUBE TID 09/15/17 [History] haloperidol lactate [Haldol] 2 mg IM Q4H PRN #1 ml 09/18/17 [Rx] levofloxacin [Levaquin] 500 mg PO DAILY #10 tab 09/18/17 [Rx] Prescriptions: haloperidol lactate [Haldol] Lionel Darling levofloxacin [Levaquin] Lionel Darling Home medications donepezil [Aricept] 10 mg FEEDING TUBE HS 12/20/16 memantine 10 mg PO HS 12/20/16 memantine 5 mg PO DAILY 12/20/16 metoprolol tartrate 25 mg PO BID 12/20/16 montelukast 10 mg PO DAILY 12/20/16 venlafaxine 150 mg PO DAILY 12/20/16 furosemide 20 mg PO BID 01/19/17 ziprasidone HCl 40 mg PO BID #120 cap 04/03/17 fluticasone 1 spray ENOSTRIL BID 05/22/17 hydrocodone-chlorpheniramine 5 ml PO Q12H PRN #60 ml 05/25/17 apixaban [Eliquis] 1 tab PO BID 06/06/17 ranitidine HCl 1 tab PO BID 06/06/17 - Discharge Disposition Discharge Disposition: We will follow up with patient in one week at intermediate.
== END 2017-09-18 11:30 ==
LOC: ICU
PROVIDERS: ADMIT Internal Medicine; ATTEND Internal Medicine
DX: R41.82 Altered mental status, unspecified; I10 Essential (primary) hypertension; B96.89 Other specified bacterial agents as the cause of diseases classified elsewhere; J20.8 Acute bronchitis due to other specified organisms; R06.02 Shortness of breath; R13.11 Dysphagia, oral phase; K21.9 Gastro-esophageal reflux disease without esophagitis; F03.90 Unspecified dementia, unspecified severity, without behavioral disturbance, psychotic disturbance, mood disturbance, and anxiety; R53.1 Weakness; D72.828 Other elevated white blood cell count; J44.9 Chronic obstructive pulmonary disease, unspecified; Z85.46 Personal history of malignant neoplasm of prostate; I69.891 Dysphagia following other cerebrovascular disease; F32.89 Other specified depressive episodes; Z93.1 Gastrostomy status
CPT/HCPCS: 36415; 71010; 71045; 80053; 81001; 85025; 87040; 87070; 87077; 87086; 87186; 87205; 93005; 94640; 99218; A4222; C9113; G0378; J0713; J1630; J3490; J7030; J7050; J7620; J7626

== ENCOUNTER 2018-02-06 18:12 | Inpatient (IN) ==
[2018-02-06] MEDS ORDERED: TUSSIONEX PENNKINETIC SUSP PO PRN (20:22)
[2018-02-06] MEDS ORDERED: NS 1/2 1000 ML IV 1,000 ML IV ONE (21:07)
[2018-02-06] MEDS: NS 1/2 1000 ML IV 1,000 ML IV SCH (21:12)
[2018-02-06] MEDS: LEVAQUIN PREMIX IV 750 MG 750 MG/150 ML BAG IV SCH (21:12)
[2018-02-06] MEDS: ROBITUSSIN DM PO SCH (21:13)
[2018-02-06] MEDS: FORTAZ or TAZICEF VIAL INJ IVP SCH (21:15)
[2018-02-06] MEDS: DUONEB 0.5 MG/3 MG NEB SCH (21:28)
[2018-02-06] MEDS: PULMICORT NEB TX 0.5 MG NEB SCH (21:28)
[2018-02-06] MEDS: TYLENOL 325 MG TAB PO PRN (22:26)
[2018-02-07] MEDS: FORTAZ or TAZICEF VIAL INJ IVP SCH ×3 (05:05→21:12)
[2018-02-07 05:19] LABS: BASOPHILS % (AUTO) 0.1 % (0.2-1.0); EOSINOPHILS # (AUTO) 0.1 x10^3/uL (0.0-0.2); EOSINOPHILS % (AUTO) 0.3 % (0.9-2.9); HEMATOCRIT 33.4 % (42.0-54.0); HEMOGLOBIN 11.4 g/dL (13.5-18.0); LYMPHOCYTES # (AUTO) 1.4 X10^3/uL (1.3-2.9); LYMPHOCYTES % (AUTO) 9.1 % (21.0-51.0); MEAN CORPUSCULAR HEMOGLOBIN 29.9 pg (27.0-34.0); MEAN CORPUSCULAR HGB CONC 34.1 g/dL (33.0-35.0); MEAN CORPUSCULAR VOLUME 87.6 fL (80.0-100.0); MEAN PLATELET VOLUME 8.5 fL (7.4-11.0); MONOCYTES # (AUTO) 1.2 x10^3/uL (0.3-0.8); MONOCYTES % (AUTO) 7.6 % (0.0-13.0); NEUTROPHILS # (AUTO) 13.2 x10^3/uL (2.2-4.8); NEUTROPHILS % (AUTO) 82.9 % (42.0-75.0); PLATELET COUNT 182 X10^3/uL (150.0-450.0); RED BLOOD COUNT 3.82 X10^6/uL (4.7-6.0); RED CELL DISTRIBUTION WIDTH 15.5 % (11.6-16.5); WHITE BLOOD COUNT 15.9 X10^3/uL (3.6-10.0)
[2018-02-07 05:25] LABS: ALANINE AMINOTRANSFERASE 14 Units/L (12-78); ALBUMIN 2.5 g/dL (3.4-5.0); ALKALINE PHOSPHATASE 48 Units/L (46-116); ASPARTATE AMINO TRANSFERASE 19 Units/L (15-37); BLOOD UREA NITROGEN 24 mg/dL (7-18); CALCIUM 8.9 mg/dL (8.5-10.1); CARBON DIOXIDE 28.5 mmol/L (21-32); CHLORIDE 101 mmol/L (98-107); COR CA(FOR HYPOALB) 10.1 mg/dL (8.5-10.1); CREATININE 1.31 mg/dL (0.70-1.30); SODIUM 137 mmol/L (136-145); eGFR NON BLACK RACES 57 (>60)
--- NOTE | 2018-02-07 06:21 | RAD ---
HISTORY: Cough, shortness of breath Study: Chest AP portable Comparison: 02/06/2018 Findings: The heart is within normal limits in size. The karla are normal. Patchy infiltrates are present in the right upper and right lower lobe likely multifocal bronchopneumonia. Perihilar atelectasis is present on the left. No pleural effusions are identified. The bony thorax is unremarkable. There is a hiatal hernia present. IMPRESSION: No change patchy infiltrates right upper right lower lobes Perihilar subsegmental atelectasis on the left Hiatal hernia Reported By:
[2018-02-07] MEDS: DUONEB 0.5 MG/3 MG NEB SCH ×4 (08:19→20:25)
[2018-02-07] MEDS: PULMICORT NEB TX 0.5 MG NEB SCH ×2 (08:20→20:25)
[2018-02-07 08:43] VITALS: BMI 26.4
[2018-02-07] MEDS: TYLENOL 325 MG TAB PO PRN (09:01)
[2018-02-07] MEDS: ROBITUSSIN DM PO SCH ×4 (09:01→20:33)
[2018-02-07] MEDS: NS 1/2 1000 ML IV 1,000 ML IV SCH (09:02)
[2018-02-07] MEDS: LEVAQUIN PREMIX IV 750 MG 750 MG/150 ML BAG IV SCH (09:30)
[2018-02-07] MEDS ORDERED: NS 1/2 1000 ML IV 1,000 ML IV ONE (13:19)
--- NOTE | 2018-02-07 16:06 | DR.H&P ---
H&P - History & Physical for Day of: H&P Date: 02/06/18 - Chief Complaint Chief Complaint: COUGH, SOB, FEVER - History of Present Illness History of Present Illness: IS A 72 YEAR OLD PATIENT OF OURS WHO IS A RESIDENT OF [facility]. STAFF REPORTS THAT PATIENT HAS HAD A COUGH, CONGESTION, FEVER, AND APPEARED TO BE SHORT OF BREATH SINCE ONE DAY PRIOR. OUTPATIENT LABS WERE OBTAINED AND REVEALED: WBC 15.6-RBC 4.33, HGB 12.7, HCT 37.6, BUN 23, CREATININE 1.49, ALBUMIN 3.0, GLOBULIN 4.7. OUTPATIENT CHEST XRAY REVEALED: Patchy right upper and lower lobe opacities and bronchial thickening that may represent pneumonia. Large hiatal hernia. HE WAS ADMITTED TO THE HOSPITAL FOR FURTHER EVALUATION AND TREATMENT OF PNEUMONIA. EXAMINATION REVEALED SCATTERED WHEEZING AND RHONCHI. ON ARRIVAL, VITALS WERE 100.2-97-93%NC-22-115/ 82. BLOOD CULTURES WERE OBTAINED ON ADMISSION. HE WAS STARTED ON THE PNEUMONIA PROTOCOL WITH IV FORTAZ, IV LEVAQUIN, RESPIRATORY TREATMENTS, AND SUPPLEMENTAL OXYGEN. WE PLAN TO FOLLOW UP WITH AM LABS AND CHEST XRAY AND CONTINUE TO MONITOR PATIENT. - Past Medical History Past Medical History: Hypertension, Depression, CVA, COPD, GERD Additional Medical History: Prostate Cancer, Chronic Cholelithiasis - Past Surgical History Surgical History: Cholecystectomy, Ortho Surgery Additional Surgical History: Prostatectomy, Hiatal Hernia Repair, Left Knee - Family History Family Medical History: Cancer - Social History Does patient currently use any type of tobacco product: No Have you used tobacco products in the last 12 months: No Type of Tobacco Use: None Does any household member use tobacco: No Alcohol Use: None Drug Use: None - Medications Home Medications: No Known Drug Allergies Allergy (Verified 01/15/18 16:52) CONTINUE taking the following medications ziprasidone HCl 40 mg FEEDING TUBE BID 02/06/18 [History] - Review of Systems Constitutional: See HPI, Fever, Weakness Eyes: No Symptoms Reported ENT: No Symptoms Reported Respiratory: Cough, Shortness of Breath, Wheezing Cardiovascular: No Symptoms Reported Gastrointestinal: No Symptoms Reported Genitourinary: No Symptoms Reported Musculoskeletal: No Symptoms Reported Skin: No Symptoms Reported Neurological: Weakness - Physical Exam Vital Signs: Temperature 97.5 F Pulse Rate [Left Brachial] 118 Pulse Rate 85 Respiratory Rate 22 Blood Pressure [Left Arm] 101/69 Blood Pressure [Right Arm] 143/81 Blood Pressure 114/79 O2 Sat by Pulse Oximetry 95 Oriented: Person Eyes: Normal Ear: Normal Nose: Normal Throat: Normal Respiratory: Rhonchi Throughout, Wheezes Throughout Cardiovascular: Normal. negative: S3, S4, Murmur : Normal Auscultation: Bowel Sounds: Normal Palpation: Normal Tenderness: Normal Skin: Normal Musculoskeletal: Normal Psychiatric: Normal Mood Description: Calm Affect: Normal Speech Pattern: Clear - Assessment/Plan (1) Pneumonia Qualifiers: Pneumonia type: due to unspecified organism Laterality: right Lung location: unspecified part of lung Qualified Code(s): J18.9 - Pneumonia, unspecified organism Status: Acute Plan: PNEUMONIA PROTOCOL WITH FORTAZ IV, LEVAQUIN IV, RESPIRATORY TREATMENTS, SUPPLEMENTAL OXYGEN, CONTINUE TO MONITOR - Allergies Allergies/Adverse Reactions: Allergies Allergy/AdvReac Type Severity Reaction Status Date / Time No Known Drug Allergies Allergy Verified 01/15/18 16:52
--- NOTE | 2018-02-07 20:01 | PCM.PROG ---
Progress Note - Progress Note for Day of Date of Exam: 02/07/18 - Subjective Subjective: WAS ADMITTED FOR RIGHT UPPER AND LOWER LOBE PNEUMONIA. TODAY, HE IS LYING IN BED WITH EYES CLOSED ON MORNING ROUNDS. HE AWAKNES EASILY TO VERBAL STIMULI. HE CONTINUES WITH COUGH AND SHORTNESS OF BREATH. ON EXAMINATION, HE IS TACHYCARDIC. BILATERAL LUNGS CONTINUE WITH SCATTERED WHEEZING THROUGHOUT. ABDOMEN IS ROUND, SOFT, AND NON-TENDER WITH NORMAL BOWEL SOUNDS NOTED IN ALL QUADRANTS. HIS VITALS THIS MORNING ARE 100.9-110-26-95%-130/66. LABS WERE OBTAINED. ABNORMAL LAB VALUES INCLUDE THE FOLLOWING: WBC 15.9, RBC 3.82, HGB 11.4, HCT 33.4, BUN 24, CREATININE 1.31, ALBUMIN 2.5. BLOOD CULTURES ARE PENDING. A CHEST XRAY WAS OBTAINED AND REVEALED: No change patchy infiltrates right upper right lower lobes. Perihilar subsegmental atelectasis on the left. Hiatal hernia. HE IS CURRENTLY RECEIVING IV FORTAZ, IV LEVAQUIN, RESPIRATORY TREATMENTS, AND SUPPLEMENTAL OXYGEN. WE WILL CONTINUE WITH CURRENT PLAN OF CARE TODAY. OTHERWISE, WE WILL FOLLOW UP WITH AM LABS AND CONTINUE TO MONITOR. - Past Medical Family Social History Past Med/Fam/Surg Hx: No changes since H&P Allergies: Allergies No Known Drug Allergies Allergy (Verified 01/15/18 16:52) - Review of Systems ROS: No change since H&P - Vital Signs and I&O's Vital Signs: Temperature 97.5 F Pulse Rate [Left Brachial] 114 Pulse Rate 74 Respiratory Rate 20 Blood Pressure [Left Arm] 116/67 Blood Pressure [Right Arm] 143/81 Blood Pressure 114/79 O2 Sat by Pulse Oximetry 100 Intake and Output: Intake & Output 02/05/18 02/06/18 02/07/18 02/08/18 11:59 11:59 11:59 11:59 Intake Total 925 / 925 723 / 723 Balance 925 / 925 723 / 723 - Physical Exam Oriented: Normal Eyes: Normal Ear: Normal Nose: Normal Throat: Normal Respiratory: Generalized, Wheezes Cardiovascular: Normal. negative: S3, S4, Murmur : Normal Auscultation: Bowel Sounds: Normal Palpation: Normal Tenderness: Normal Skin: Normal Musculoskeletal: Normal Psychiatric: Normal Mood Description: Calm Affect: Normal Speech Pattern: Clear - Laboratory and Diagnostics Result Diagrams: 02/07/18 04:06 02/07/18 04:06 Labs: Laboratory WBC 15.9 X10^3/uL (3.6-10.0) H 02/07/18 04:06 RBC 3.82 X10^6/uL (4.7-6.0) L 02/07/18 04:06 Hgb 11.4 g/dL (13.5-18.0) L 02/07/18 04:06 Hct 33.4 % (42.0-54.0) L 02/07/18 04:06 MCV 87.6 fL (80.0-100.0) 02/07/18 04:06 MCH 29.9 pg (27.0-34.0) 02/07/18 04:06 MCHC 34.1 g/dL (33.0-35.0) 02/07/18 04:06 RDW 15.5 % (11.6-16.5) 02/07/18 04:06 Plt Count 182 X10^3/uL (150.0-450.0) 02/07/18 04:06 MPV 8.5 fL (7.4-11.0) 02/07/18 04:06 Neut % (Auto) 82.9 % (42.0-75.0) H 02/07/18 04:06 Lymph % (Auto) 9.1 % (21.0-51.0) L 02/07/18 04:06 [place]k % (Auto) 7.6 % (0.0-13.0) 02/07/18 04:06 Eos % (Auto) 0.3 % (0.9-2.9) L 02/07/18 04:06 Baso % (Auto) 0.1 % (0.2-1.0) L 02/07/18 04:06 Neut # (Auto) 13.2 x10^3/uL (2.2-4.8) H 02/07/18 04:06 Lymph # (Auto) 1.4 X10^3/uL (1.3-2.9) 02/07/18 04:06 [place]k # (Auto) 1.2 x10^3/uL (0.3-0.8) H 02/07/18 04:06 Eos # (Auto) 0.1 x10^3/uL (0.0-0.2) 02/07/18 04:06 Baso # (Auto) 0.0 X10^3/uL (0.0-0.1) 02/07/18 04:06 Absolute Nucleated RBC 0.0 /100WBC 02/07/18 04:06 Sodium 137 mmol/L (136-145) 02/07/18 04:06 Corrected Sodium TNP 02/07/18 04:06 Potassium 4.1 mmol/L (3.5-5.1) 02/07/18 04:06 Chloride 101 mmol/L (98-107) 02/07/18 04:06 Carbon Dioxide 28.5 mmol/L (21-32) 02/07/18 04:06 BUN 24 mg/dL (7-18) H 02/07/18 04:06 Creatinine 1.31 mg/dL (0.70-1.30) H 02/07/18 04:06 Est GFR (MDRD) Af Amer > 60 (>60) 02/07/18 04:06 Est GFR (MDRD) Non-Af 57 (>60) L 02/07/18 04:06 Glucose 73 mg/dL (65-99) 02/07/18 04:06 POC Glucose (mg/dL) 96 mg/dL (65-99) 02/07/18 16:42 Calcium 8.9 mg/dL (8.5-10.1) 02/07/18 04:06 Corrected Calcium 10.1 mg/dL (8.5-10.1) 02/07/18 04:06 Total Bilirubin 0.80 mg/dL (0.2-1.0) 02/07/18 04:06 AST 19 Units/L (15-37) 02/07/18 04:06 ALT 14 Units/L (12-78) 02/07/18 04:06 Alkaline Phosphatase 48 Units/L (46-116) 02/07/18 04:06 Total Protein 7.0 g/dL (6.4-8.2) 02/07/18 04:06 Albumin 2.5 g/dL (3.4-5.0) L 02/07/18 04:06 Globulin 4.5 g/dL (2.5-4.5) 02/07/18 04:06 Albumin/Globulin Ratio 0.6 Ratio (1.1-2.1) L 02/07/18 04:06 - Plan (1) Pneumonia Status: Acute Qualifiers: Pneumonia type: due to unspecified organism Laterality: right Lung location: unspecified part of lung Qualified Code(s): J18.9 - Pneumonia, unspecified organism Plan: PNEUMONIA PROTOCOL WITH FORTAZ IV, LEVAQUIN IV, RESPIRATORY TREATMENTS, SUPPLEMENTAL OXYGEN, CONTINUE TO MONITOR
[2018-02-08] MEDS ORDERED: NS 1/2 1000 ML IV 1,000 ML IV ONE ×2 (02:59→20:29)
[2018-02-08] MEDS: NS 1/2 1000 ML IV 1,000 ML IV SCH ×2 (03:00→20:44)
[2018-02-08] MEDS: FORTAZ or TAZICEF VIAL INJ IVP SCH ×3 (04:59→21:00)
[2018-02-08 05:34] LABS: BASOPHILS % (AUTO) 0.3 % (0.2-1.0); EOSINOPHILS % (AUTO) 0.3 % (0.9-2.9); HEMATOCRIT 32.7 % (42.0-54.0); HEMOGLOBIN 11.2 g/dL (13.5-18.0); LYMPHOCYTES # (AUTO) 0.9 X10^3/uL (1.3-2.9); LYMPHOCYTES % (AUTO) 9.3 % (21.0-51.0); MEAN CORPUSCULAR HEMOGLOBIN 29.9 pg (27.0-34.0); MEAN CORPUSCULAR HGB CONC 34.1 g/dL (33.0-35.0); MEAN CORPUSCULAR VOLUME 87.8 fL (80.0-100.0); MEAN PLATELET VOLUME 8.7 fL (7.4-11.0); MONOCYTES # (AUTO) 0.8 x10^3/uL (0.3-0.8); MONOCYTES % (AUTO) 8.4 % (0.0-13.0); NEUTROPHILS # (AUTO) 8.3 x10^3/uL (2.2-4.8); NEUTROPHILS % (AUTO) 81.7 % (42.0-75.0); PLATELET COUNT 185 X10^3/uL (150.0-450.0); RED BLOOD COUNT 3.73 X10^6/uL (4.7-6.0); RED CELL DISTRIBUTION WIDTH 15.2 % (11.6-16.5); WHITE BLOOD COUNT 10.1 X10^3/uL (3.6-10.0)
[2018-02-08 05:53] LABS: ALANINE AMINOTRANSFERASE 15 Units/L (12-78); ALBUMIN 2.5 g/dL (3.4-5.0); ALKALINE PHOSPHATASE 52 Units/L (46-116); ASPARTATE AMINO TRANSFERASE 24 Units/L (15-37); BLOOD UREA NITROGEN 17 mg/dL (7-18); CALCIUM 9.2 mg/dL (8.5-10.1); CARBON DIOXIDE 23.9 mmol/L (21-32); CHLORIDE 104 mmol/L (98-107); COR CA(FOR HYPOALB) 10.4 mg/dL (8.5-10.1); CREATININE 1.11 mg/dL (0.70-1.30); SODIUM 139 mmol/L (136-145); TOTAL PROTEIN 7.2 g/dL (6.4-8.2); eGFR NON BLACK RACES > 60 (>60)
--- NOTE | 2018-02-08 07:06 | RAD ---
HISTORY: Cough, shortness of breath Study: Chest AP portable Comparison: 02/07/2018 Findings: The heart is upper limits normal in size. No congestive heart failure is noted. The karla are normal. The lungs are mildly hypo inflated. There has been significant improvement in the right lung infiltrates being followed. The previously noted perihilar atelectasis on the left has also resolved. No pleural effusions are identified. The bony thorax is unremarkable. There is a hiatal hernia present. IMPRESSION: Resolved right perihilar infiltrates and left perihilar subsegmental atelectasis Hypo inflation Hiatal hernia Reported By:
[2018-02-08] MEDS ORDERED: TUSSIONEX PENNKINETIC SUSP PO PRN (08:15)
[2018-02-08] MEDS: ROBITUSSIN DM PO SCH ×4 (08:45→20:47)
[2018-02-08] MEDS: LEVAQUIN PREMIX IV 750 MG 750 MG/150 ML BAG IV SCH (08:45)
[2018-02-08] MEDS: DUONEB 0.5 MG/3 MG NEB SCH ×4 (08:47→20:18)
[2018-02-08] MEDS: PULMICORT NEB TX 0.5 MG NEB SCH ×2 (08:47→20:18)
[2018-02-08] MEDS: XANAX PEG PRN ×2 (08:59→20:46)
[2018-02-08] MEDS: COLACE SYRUP 100 MG UDC PEG SCH (08:59)
[2018-02-08] MEDS: EFFEXOR XR 75 MG CAP PO SCH (08:59)
[2018-02-08] MEDS: SINGULAIR TAB 10 MG PEG SCH (08:59)
[2018-02-08] MEDS: ZANTAC PO SCH ×2 (08:59→20:47)
[2018-02-08] MEDS: NAMENDA TAB 10 MG PEG SCH (09:00)
[2018-02-08] MEDS ORDERED: THIORIDAZINE 50 MG Feeding Tube SCH (09:00)
[2018-02-08] MEDS: LASIX PEG SCH ×2 (09:00→20:47)
[2018-02-08] MEDS: GEODON PO SCH ×2 (09:00→20:46)
[2018-02-08] MEDS: LOPRESSOR TAB 25 MG PEG SCH ×3 (09:00→23:35)
[2018-02-08] MEDS: ELIQUIS PO SCH ×2 (09:00→20:47)
[2018-02-08] MEDS: FLONASE NASAL SPRAY ENOSTRIL SCH ×2 (09:01→20:48)
[2018-02-08] MEDS ORDERED: ASTELIN NASAL SPRAY ENOSTRIL ONE (09:04)
[2018-02-08] MEDS: ASTELIN NASAL SPRAY ENOSTRIL SCH ×3 (09:05→21:00)
[2018-02-08] MEDS: VALPROIC ACID Feeding Tube SCH ×3 (14:01→21:00)
[2018-02-08] MEDS ORDERED: NAMENDA TAB 10 MG PEG SCH (21:00)
[2018-02-08] MEDS ORDERED: ARICEPT TAB 10 MG PEG SCH (21:00)
[2018-02-09] MEDS ORDERED: NS 1/2 1000 ML IV 1,000 ML IV ONE (05:03)
[2018-02-09] MEDS: ASTELIN NASAL SPRAY ENOSTRIL SCH (05:06)
[2018-02-09] MEDS: FORTAZ or TAZICEF VIAL INJ IVP SCH (05:06)
[2018-02-09] MEDS: VALPROIC ACID Feeding Tube SCH (05:06)
[2018-02-09] MEDS: NS 1/2 1000 ML IV 1,000 ML IV SCH (05:07)
[2018-02-09 06:42] LABS: ALANINE AMINOTRANSFERASE 17 Units/L (12-78); ALBUMIN 2.4 g/dL (3.4-5.0); ALKALINE PHOSPHATASE 46 Units/L (46-116); ASPARTATE AMINO TRANSFERASE 17 Units/L (15-37); BLOOD UREA NITROGEN 17 mg/dL (7-18); CARBON DIOXIDE 27.1 mmol/L (21-32); CHLORIDE 107 mmol/L (98-107); COR CA(FOR HYPOALB) 10.3 mg/dL (8.5-10.1); CREATININE 1.07 mg/dL (0.70-1.30); SODIUM 142 mmol/L (136-145); TOTAL PROTEIN 6.7 g/dL (6.4-8.2); eGFR NON BLACK RACES > 60 (>60)
[2018-02-09 06:52] LABS: BASOPHILS % (AUTO) 0.5 % (0.2-1.0); EOSINOPHILS # (AUTO) 0.2 x10^3/uL (0.0-0.2); EOSINOPHILS % (AUTO) 1.8 % (0.9-2.9); HEMATOCRIT 31.9 % (42.0-54.0); HEMOGLOBIN 10.8 g/dL (13.5-18.0); LYMPHOCYTES # (AUTO) 1.6 X10^3/uL (1.3-2.9); MEAN CORPUSCULAR HEMOGLOBIN 29.8 pg (27.0-34.0); MEAN CORPUSCULAR HGB CONC 33.9 g/dL (33.0-35.0); MEAN CORPUSCULAR VOLUME 87.8 fL (80.0-100.0); MONOCYTES # (AUTO) 0.5 x10^3/uL (0.3-0.8); MONOCYTES % (AUTO) 6.6 % (0.0-13.0); NEUTROPHILS % (AUTO) 72.1 % (42.0-75.0); PLATELET COUNT 173 X10^3/uL (150.0-450.0); RED BLOOD COUNT 3.64 X10^6/uL (4.7-6.0); RED CELL DISTRIBUTION WIDTH 15.4 % (11.6-16.5); WHITE BLOOD COUNT 8.3 X10^3/uL (3.6-10.0)
[2018-02-09 08:05] VITALS: BP 101/57
[2018-02-09] MEDS: PULMICORT NEB TX 0.5 MG NEB SCH (08:44)
[2018-02-09] MEDS: DUONEB 0.5 MG/3 MG NEB SCH (08:44)
[2018-02-09] MEDS: LEVAQUIN PREMIX IV 750 MG 750 MG/150 ML BAG IV SCH (08:51)
[2018-02-09] MEDS: ELIQUIS PO SCH (08:52)
[2018-02-09] MEDS: EFFEXOR XR 75 MG CAP PO SCH (08:52)
[2018-02-09] MEDS: COLACE SYRUP 100 MG UDC PEG SCH (08:52)
[2018-02-09] MEDS: ZANTAC PO SCH (08:52)
[2018-02-09] MEDS: LOPRESSOR TAB 25 MG PEG SCH (08:52)
[2018-02-09] MEDS: ROBITUSSIN DM PO SCH (08:52)
[2018-02-09] MEDS: LASIX PEG SCH (08:53)
[2018-02-09] MEDS: NAMENDA TAB 10 MG PEG SCH (08:53)
[2018-02-09] MEDS: FLONASE NASAL SPRAY ENOSTRIL SCH (08:53)
[2018-02-09] MEDS: XANAX PEG PRN (08:53)
[2018-02-09] MEDS: GEODON PO SCH (08:53)
[2018-02-09] MEDS: SINGULAIR TAB 10 MG PEG SCH (08:53)
--- NOTE | 2018-02-09 12:15 | RAD ---
History: Dyspnea and chest pain. Exam: Single-view chest. Comparison: Chest radiograph dated 02/08/2018. Findings: The trachea is deviated rightward, unchanged. The cardiac silhouette is stable. The hiatal hernia is stable. Fullness in the left hilum probably reflects an enlarged or prominent pulmonary artery without change from prior. Chronic lung changes remain. The lungs are otherwise clear without consolidation, effusion, or pneumothorax. There is no radiographic evidence for CHF or pulmonary edema, either. The bony thorax is grossly intact. Impression: Chronic lung changes without acute cardiopulmonary abnormality otherwise seen. Reported By:
== END 2018-02-09 12:15 | DRG 194 ==
LOC: MED/SURG → OBSVTOIN 19:50
PROVIDERS: ADMIT Internal Medicine; ATTEND Internal Medicine
DX: R62.7 Adult failure to thrive; K21.9 Gastro-esophageal reflux disease without esophagitis; I10 Essential (primary) hypertension; R26.89 Other abnormalities of gait and mobility; E78.49 Other hyperlipidemia; R13.12 Dysphagia, oropharyngeal phase; I69.951 Hemiplegia and hemiparesis following unspecified cerebrovascular disease affecting right dominant side; Z85.46 Personal history of malignant neoplasm of prostate; J18.8 Other pneumonia, unspecified organism; R00.0 Tachycardia, unspecified; K44.9 Diaphragmatic hernia without obstruction or gangrene; J44.9 Chronic obstructive pulmonary disease, unspecified; R06.02 Shortness of breath
CPT/HCPCS: 36415; 71010; 71045; 80053; 85025; 87040; 92610; 94640; 94760; 97110; 97162; 97165; 97530; 97535; A4222; J0713; J1956; J3490; J7620; J7626

== ENCOUNTER 2018-05-12 00:54 | Inpatient (IN) ==
[2018-05-12] MEDS ORDERED: DUONEB 0.5 MG/3 MG ONE (01:02)
[2018-05-12] MEDS ORDERED: DUONEB 0.5 MG/3 MG NEB ONE (01:16)
--- NOTE | 2018-05-12 01:29 | DR.URIAD ---
HPI Time Seen Time Seen by Provider: 05/12/18 01:26 PCP Primary Care Physician: DR. VELÁZQUEZ Complaint Chief Complaint Doctors Comments: NHR with fever and SOB. He is here for evaluation and treatment Chief Complaint:: PER ASSISTED STAFF, PT IS STRUGGLING TO BREATH, RUNNING A TEMP OF 102.2, AND IS BEING SENT OVER PER DR. GUIDRY FOR EVALUATION. ASSISTED STAFF STATES PT WAS JUST RECENTLY DIAGNOSED WITH PNA AND STARTED ON CIPRO ON THE 05/10/2018. STATES THAT PT HAS A HISTORY OF ASPIRATION PNA. Self Treatment fo Chief Complaint: TYLENOL 650MG VIA G TUBE. Reviewed Nurses Notes Reviewed: Yes Source History Provided: Patient Mode of Arrival Mode of Arrival: Stretcher Timing Onset of Chief Complaint: 05/12/18 PMH PMH Past Medical History: Yes Past Medical History: Anxiety, COPD, CVA, Dementia, Depression, Diabetes, Dyslipidemia, GERD, Hypertension and Schizophrenia Past Medical History Comment: PNA UTI MAJOR DEPRESSIVE DISORDER BLOOD CLOTS Past Surgical History: Yes Surgical History: Cholecystectomy and Ortho Surgery Past Surgical History Comment: G-TUBE PLACEMENT Family History History of Family Medical Conditions: Yes Family Medical History: Cancer Social History Alcohol Use: None Do you use any recreational Drugs:: No Lives With: Other Lives Where: [facility] In the last 2 months have you had wt loss of >10#?: NO Have you had fever, night sweats or hemotysis?: No Have you traveled outside the country in the last 6 months?: No Isolation: Standard ROS Review of Systems Constitutional: Fever Eyes: No Symptoms Reported ENTM: No Symptoms Reported Respiratoy: Dry Cough and Short of Breath Cardiovascular: No Symptoms Reported Gastrointestinal/Abdominal: No Symptoms Reported Genitourinary: No Symptoms Reported Neurological: No Symptoms Reported Musculoskeletal: No Symptoms Reported Integumentary: No Symptoms Reported Hematologic/Lymphatic: No Symptoms Reported Endocrine: No Symptoms Reported Psychiatric: No Symptoms Reported PE Vital Signs Vitals: Temperature 101 F Pulse Rate [Brachial] 135 Pulse Rate 108 Respiratory Rate 24 Blood Pressure [Left Arm] 115/75 Blood Pressure [Right Arm] 105/57 Blood Pressure 126/69 O2 Sat by Pulse Oximetry 94 General Limitations: No Limitations General Appearance: In Distress Head Head Exam: Normal Inspection, Atraumatic and Normocephalic Eyes Eye exam: Normal Appearance and EOMI ENT ENT Exam: Normal Exam, Normal Oropharynx and Mucous Membranes Moist Neck Neck Exam: Normal Inspection and Trachea Midline Chest Chest Inspection: Normal Inspection and Symmetric Chest Wall Rise Respiratory Respiratory Exam: Bilateral: Rhonchi Cardiovascular Cardiovascular Exam: Tachycardia, +S1 and +S2 Abdominal Exam Abdominal Exam: Normal Inspection, Normal Bowel Sounds, Soft and Other (GT noted) Extremeties Extremities Exam: Normal Inspection Neurologic Neurological Exam: Alert Psychiatric Psychiatric Exam: Normal Affect Skin Skin Exam: Warm COURSE Reevaluation 1st: Improved ROR Labs Reviewed Laboratory Results Reviewed?: Yes Result Diagrams: 05/12/18 01:12 05/12/18 01:12 Laboratory: WBC 11.0 X10^3/uL (3.6-10.0) H 05/12/18 01:12 RBC 4.40 X10^6/uL (4.7-6.0) L 05/12/18 01:12 Hgb 13.1 g/dL (13.5-18.0) L 05/12/18 01:12 Hct 38.2 % (42.0-54.0) L 05/12/18 01:12 MCV 86.8 fL (80.0-100.0) 05/12/18 01:12 MCH 29.8 pg (27.0-34.0) 05/12/18 01:12 MCHC 34.3 g/dL (33.0-35.0) 05/12/18 01:12 RDW 14.5 % (11.6-16.5) 05/12/18 01:12 Plt Count 228 X10^3/uL (150.0-450.0) 05/12/18 01:12 MPV 7.9 fL (7.4-11.0) 05/12/18 01:12 Neut % (Auto) 84.0 % (42.0-75.0) H 05/12/18 01:12 Lymph % (Auto) 6.3 % (21.0-51.0) L 05/12/18 01:12 [place] % (Auto) 9.2 % (0.0-13.0) 05/12/18 01:12 Eos % (Auto) 0.2 % (0.9-2.9) L 05/12/18 01:12 Baso % (Auto) 0.3 % (0.2-1.0) 05/12/18 01:12 Neut # (Auto) 9.3 x10^3/uL (2.2-4.8) H 05/12/18 01:12 Lymph # (Auto) 0.7 X10^3/uL (1.3-2.9) L 05/12/18 01:12 [place] # (Auto) 1.0 x10^3/uL (0.3-0.8) H 05/12/18 01:12 Eos # (Auto) 0.0 x10^3/uL (0.0-0.2) 05/12/18 01:12 Baso # (Auto) 0.0 X10^3/uL (0.0-0.1) 05/12/18 01:12 Absolute Nucleated RBC 0.0 /100WBC 05/12/18 01:12 INR Target Range - 05/12/18 01:12 INR 1.25 (0.8-1.3) 05/12/18 01:12 APTT 39.7 SECONDS (22.9-36.5) H 05/12/18 01:12 PTT Comment - 05/12/18 01:12 Sample Site Rr 05/12/18 01:52 ABG pH 7.540 (7.35-7.45) H 05/12/18 01:52 ABG pCO2 34.0 mmHg (35.0-45.0) L 05/12/18 01:52 ABG pO2 59.0 mmHg (80.0-100.0) L 05/12/18 01:52 ABG HCO3 29.1 mmol/L (22-26) H 05/12/18 01:52 ABG O2 Saturation 93.0 % (90-100) 05/12/18 01:52 ABG Base Excess 6.5 mmol/L (-2.0-2.0) H 05/12/18 01:52 Jeremie Test Pos 05/12/18 01:52 A-a Gradient 127.0 mmHg 05/12/18 01:52 FiO2 32.0 05/12/18 01:52 Blood Gas Comments Carmella well ae 05/12/18 01:52 Sodium 136 mmol/L (136-145) 05/12/18 01:12 Corrected Sodium TNP 05/12/18 01:12 Potassium 3.9 mmol/L (3.5-5.1) 05/12/18 01:12 Chloride 98 mmol/L (98-107) 05/12/18 01:12 Carbon Dioxide 28.5 mmol/L (21-32) 05/12/18 01:12 BUN 24 mg/dL (7-18) H 05/12/18 01:12 Creatinine 1.35 mg/dL (0.70-1.30) H 05/12/18 01:12 Est GFR (MDRD) Af Amer > 60 (>60) 05/12/18 01:12 Est GFR (MDRD) Non-Af 55 (>60) L 05/12/18 01:12 Glucose 97 mg/dL (65-99) 05/12/18 01:12 Calcium 9.4 mg/dL (8.5-10.1) 05/12/18 01:12 Corrected Calcium 10.2 mg/dL (8.5-10.1) H 05/12/18 01:12 Total Bilirubin 0.90 mg/dL (0.2-1.0) 05/12/18 01:12 AST 18 Units/L (15-37) 05/12/18 01:12 ALT 20 Units/L (12-78) 05/12/18 01:12 Alkaline Phosphatase 60 Units/L (46-116) 05/12/18 01:12 Creatine Kinase 191 Units/L (39-308) 05/12/18 01:12 CK-MB (CK-2) 1.6 ng/mL (0-4.0) 05/12/18 01:12 CK/CKMB % Calc 0.8 % (<4) 05/12/18 01:12 Troponin I < 0.02 ng/mL (0-1.5) 05/12/18 01:12 B-Natriuretic Peptide 81.3 pg/mL (0-79) H 05/12/18 01:12 Total Protein 8.1 g/dL (6.4-8.2) 05/12/18 01:12 Albumin 3.0 g/dL (3.4-5.0) L 05/12/18 01:12 Globulin 5.1 g/dL (2.5-4.5) H 05/12/18 01:12 Albumin/Globulin Ratio 0.6 Ratio (1.1-2.1) L 05/12/18 01:12 Other Results Comments: Radiologist read on CXR: Questionable RLL infiltrate, similar to 05/10/18 EKG Rate: 122 [place]: Normal Rhythm: ST Block: IVCD Hypertrophy: None ST: Normal Diagnosis Discharge Problem: Benign essential HTN Aspiration pneumonia Qualifiers: Aspiration pneumonia type: due to gastric secretions Laterality: unspecified laterality Lung location: unspecified part of lung Qualified Code(s): J69.0 - Pneumonitis due to inhalation of food and vomit Dementia Qualifiers: Dementia type: Alzheimer's disease Alzheimer's disease onset: unspecified onset Dementia behavioral disturbance: without behavioral disturbance Qualified Code(s): G30.9 - Alzheimer's disease, unspecified
[2018-05-12 01:32] LABS: BASOPHILS % (AUTO) 0.3 % (0.2-1.0); EOSINOPHILS % (AUTO) 0.2 % (0.9-2.9); HEMATOCRIT 38.2 % (42.0-54.0); HEMOGLOBIN 13.1 g/dL (13.5-18.0); LYMPHOCYTES # (AUTO) 0.7 X10^3/uL (1.3-2.9); LYMPHOCYTES % (AUTO) 6.3 % (21.0-51.0); MEAN CORPUSCULAR HEMOGLOBIN 29.8 pg (27.0-34.0); MEAN CORPUSCULAR HGB CONC 34.3 g/dL (33.0-35.0); MEAN CORPUSCULAR VOLUME 86.8 fL (80.0-100.0); MEAN PLATELET VOLUME 7.9 fL (7.4-11.0); MONOCYTES % (AUTO) 9.2 % (0.0-13.0); NEUTROPHILS # (AUTO) 9.3 x10^3/uL (2.2-4.8); PLATELET COUNT 228 X10^3/uL (150.0-450.0); RED CELL DISTRIBUTION WIDTH 14.5 % (11.6-16.5)
[2018-05-12] MEDS ORDERED: ZOSYN VIAL 3.375 GRAMS 3.375 G in NS 100 ML IV + SPIKE MINIBAG* 100 ML IV ONE (01:42)
[2018-05-12] MEDS ORDERED: LEVAQUIN PREMIX IV 750 MG 750 MG/150 ML BAG IV ONE ×2 (01:42→01:56)
[2018-05-12 01:56] LABS: BLOOD UREA NITROGEN 24 mg/dL (7-18); CALCIUM 9.4 mg/dL (8.5-10.1); CARBON DIOXIDE 28.5 mmol/L (21-32); CHLORIDE 98 mmol/L (98-107); CREATININE 1.35 mg/dL (0.70-1.30); SODIUM 136 mmol/L (136-145); TROPONIN I < 0.02 ng/mL (0-1.5); eGFR NON BLACK RACES 55 (>60)
[2018-05-12] MEDS ORDERED: ZOSYN VIAL 3.375 GRAMS IV ONE (01:56)
[2018-05-12] MEDS ORDERED: NS 250 ML IV 250 ML ONE (01:56)
[2018-05-12 01:57] LABS: ABG ALLEN TEST POS; ABG BASE EXCESS 6.5 mmol/L (-2.0-2.0); ABG HCO3 29.1 mmol/L (22-26)
[2018-05-12] MEDS ORDERED: NS 100 ML IV + SPIKE MINIBAG* 100 ML ONE (01:57)
[2018-05-12 02:00] LABS: ALANINE AMINOTRANSFERASE 20 Units/L (12-78); ALKALINE PHOSPHATASE 60 Units/L (46-116); ASPARTATE AMINO TRANSFERASE 18 Units/L (15-37); B-TYPE NATRIURETIC PEPTIDE 81.3 pg/mL (0-79); CKMB % 0.8 % (<4); COR CA(FOR HYPOALB) 10.2 mg/dL (8.5-10.1); CREATINE KINASE 191 Units/L (39-308); CREATINE KINASE MB 1.6 ng/mL (0-4.0); TOTAL PROTEIN 8.1 g/dL (6.4-8.2)
--- NOTE | 2018-05-12 02:17 | RAD ---
Chest, 1 view. Indication: Shortness of breath. Comparison: 05/10/2018. Findings: Cardiac silhouette is unremarkable. There is again questionable right lower lobe infiltrate, which is more prominent, accounting for differences in lung volumes. The left lung is grossly clear. No significant pleural effusion. Impression: Questionable right lower lobe infiltrate, similar to prior. Reported By:
[2018-05-12] MEDS ORDERED: TUSSIONEX PENNKINETIC SUSP PO PRN (02:55)
[2018-05-12] MEDS ORDERED: HumuLIN R SUBCUT PRN (02:59)
[2018-05-12] MEDS ORDERED: ROCEPHIN VIAL 1 GRAM IVP ONE (03:01)
[2018-05-12 03:24] LABS: BILIRUBIN,URINE NEGATIVE (NEGATIVE); BLOOD/HEMOGLOBIN,URINE 3+ (NEGATIVE); GLUCOSE, URINE NEGATIVE (NEGATIVE); KETONES,URINE NEGATIVE (NEGATIVE); LEUKOCYTE ESTERASE ,URINE 1+ (NEGATIVE); NITRITES,URINE NEGATIVE (NEGATIVE); PROTEIN,URINE 2+ (NEGATIVE); UROBILINOGEN,URINE 2+ (NORMAL)
[2018-05-12 03:28] LABS: APPEARANCE,URINE CLEAR (CLEAR); COLOR,URINE YELLOW (YELLOW)
[2018-05-12 03:37] LABS: BACTERIA,URINE 1+ /HPF (NEGATIVE); MUCUS,URINE FEW /HPF (NEGATIVE); RBC,URINE 20-30 /HPF (NONE SEEN); SQUAMOUS EPITHELIAL CELL,UR FEW /HPF (NEGATIVE)
[2018-05-12] MEDS ORDERED: XANAX GT SCH (04:04)
[2018-05-12] MEDS: NS 1/2 1000 ML IV 1,000 ML IV SCH ×3 (04:43→20:08)
[2018-05-12] MEDS ORDERED: NS 1/2 1000 ML IV 1,000 ML ONE ×2 (04:45→19:24)
[2018-05-12 05:28] LABS: BASOPHILS # (AUTO) 0.1 X10^3/uL (0.0-0.1); BASOPHILS % (AUTO) 0.5 % (0.2-1.0); HEMATOCRIT 37.1 % (42.0-54.0); HEMOGLOBIN 12.7 g/dL (13.5-18.0); LYMPHOCYTES # (AUTO) 1.2 X10^3/uL (1.3-2.9); LYMPHOCYTES % (AUTO) 7.1 % (21.0-51.0); MEAN CORPUSCULAR HEMOGLOBIN 29.7 pg (27.0-34.0); MEAN CORPUSCULAR HGB CONC 34.2 g/dL (33.0-35.0); MEAN CORPUSCULAR VOLUME 87.1 fL (80.0-100.0); MEAN PLATELET VOLUME 8.1 fL (7.4-11.0); MONOCYTES % (AUTO) 11.7 % (0.0-13.0); NEUTROPHILS # (AUTO) 13.9 x10^3/uL (2.2-4.8); NEUTROPHILS % (AUTO) 80.7 % (42.0-75.0); PLATELET COUNT 229 X10^3/uL (150.0-450.0); RED BLOOD COUNT 4.26 X10^6/uL (4.7-6.0); RED CELL DISTRIBUTION WIDTH 14.6 % (11.6-16.5); WHITE BLOOD COUNT 17.2 X10^3/uL (3.6-10.0)
[2018-05-12 05:44] LABS: ALBUMIN 2.8 g/dL (3.4-5.0); CALCIUM 9.2 mg/dL (8.5-10.1); CARBON DIOXIDE 26.9 mmol/L (21-32); COR CA(FOR HYPOALB) 10.2 mg/dL (8.5-10.1); CREATININE 1.54 mg/dL (0.70-1.30); TOTAL PROTEIN 7.7 g/dL (6.4-8.2)
[2018-05-12] MEDS ORDERED: XOPENEX 1.25 MG/3 ML NEBULE NEB SCH (06:00)
[2018-05-12] MEDS ORDERED: VALPROIC ACID Feeding Tube SCH (06:00)
[2018-05-12] MEDS: ASTELIN NASAL SPRAY ENOSTRIL SCH ×3 (06:23→21:45)
[2018-05-12] MEDS ORDERED: ASTELIN NASAL SPRAY ONE (06:28)
[2018-05-12] MEDS: VIBRAMYCIN 100 MG in NS 100 ML IV + SPIKE MINIBAG* 100 ML IV SCH ×2 (08:23→21:48)
[2018-05-12] MEDS: COLACE SYRUP 100 MG UDC GT SCH (08:23)
[2018-05-12] MEDS: ROBITUSSIN DM PO SCH ×4 (08:23→21:46)
[2018-05-12] MEDS: EFFEXOR XR 75 MG CAP PO SCH (08:23)
[2018-05-12] MEDS: GEODON PO SCH ×2 (08:24→21:43)
[2018-05-12] MEDS: LOPRESSOR TAB 25 MG GT SCH ×2 (08:24→21:43)
[2018-05-12] MEDS: ELIQUIS NG SCH ×2 (08:24→21:43)
[2018-05-12] MEDS: LASIX GT SCH ×2 (08:24→21:43)
[2018-05-12] MEDS: SINGULAIR TAB 10 MG GT SCH (08:24)
[2018-05-12] MEDS: XANAX GT SCH ×2 (08:24→21:50)
[2018-05-12] MEDS: NAMENDA TAB 10 MG GT SCH ×2 (08:24→21:44)
[2018-05-12] MEDS: FLONASE NASAL SPRAY ENOSTRIL SCH ×2 (08:25→21:43)
[2018-05-12] MEDS ORDERED: PULMICORT NEB TX 0.5 MG NEB SCH (09:00)
[2018-05-12] MEDS ORDERED: PATIENT'S HOME MEDICATION (Budesonide-Formoterol 2 PUFF) IN SCH (09:00)
[2018-05-12] MEDS: DUONEB 0.5 MG/3 MG IN SCH ×2 (09:13→21:13)
[2018-05-12] MEDS: PULMICORT NEB TX 0.5 MG NEB SCH ×2 (09:13→21:13)
--- NOTE | 2018-05-12 11:37 | DR.H&P ---
H&P - History & Physical for Day of: H&P Date: 05/12/18 - Chief Complaint Chief Complaint: PER [facility] STAFF, PT IS STRUGGLING TO BREATH, RUNNING A TEMP OF 102.2 - History of Present Illness History of Present Illness: 73 WM ER ADMISSION AFTER PRESENTING FROM [facility] FOR EVALUATION. PER [facility] STAFF, PT IS STRUGGLING TO BREATH, RUNNING A TEMP OF 102.2, AND IS BEING SENT OVER PER DR. GUIDRY FOR EVALUATION. [facility] STAFF STATES PT WAS JUST RECENTLY DIAGNOSED WITH PNA AND STARTED ON CIPRO ON THE 05/10/2018. STATES THAT PT HAS A HISTORY OF ASPIRATION PNA. - Past Medical History Past Medical History: Hypertension, Dyslipidemia, Diabetes, Schizophrenia, Dementia, Depression, Anxiety, CVA, COPD, GERD Additional Medical History: Prostate Cancer, Chronic Cholelithiasis - Past Surgical History Surgical History: Cholecystectomy, Other Additional Surgical History: Prostatectomy, Hiatal Hernia Repair, Left Knee - Family History Family Medical History: Cancer - Social History Does patient currently use any type of tobacco product: No Have you used tobacco products in the last 12 months: No Type of Tobacco Use: None Does any household member use tobacco: No Alcohol Use: None Drug Use: Prescription Drugs - Medications Home Medications: No Known Drug Allergies Allergy (Verified 01/15/18 16:52) CONTINUE taking the following medications ciprofloxacin HCl 500 mg FEEDING TUBE BID 05/12/18 [History] - Review of Systems Constitutional: Fever, Weakness Eyes: No Symptoms Reported ENT: No Symptoms Reported Respiratory: Cough, Wheezing Cardiovascular: No Symptoms Reported Gastrointestinal: No Symptoms Reported Genitourinary: No Symptoms Reported Musculoskeletal: No Symptoms Reported Skin: No Symptoms Reported Neurological: Weakness, Other (CHRONIC APHAGIA) - Physical Exam Vital Signs: Temperature 98.2 F Pulse Rate [Brachial] 76 Pulse Rate 92 Respiratory Rate 24 Blood Pressure [Left Arm] 98/55 Blood Pressure [Right Arm] 105/57 Blood Pressure 126/69 O2 Sat by Pulse Oximetry 94 Oriented: Person Eyes: Normal Ear: Normal Nose: Normal Throat: Normal Respiratory: Rhonchi Throughout, RLL Diminished, LLL Diminished Musculoskeletal: Right, Left, Motor Deficit Psychiatric: Anxiety Affect: Anxious Speech Pattern: Aphasic - Assessment/Plan (1) Aspiration pneumonia Status: Acute Plan: ADMIT, PNEUMONIA PROTOCOL, RESP THERAPY. SUPPLEMENTAL O2, ABG ON ADMISSION. GTUBE FEEDINGS. ASPIRATION PRECAUTIONS. BLOOD AND SPUTUM CULTURES. CXR ON ADMISSION, VERIFY HOME MEDICATION (2) Status post CVA Status: Acute (3) Hypertension Qualifiers: Status: Chronic (4) Dementia Qualifiers: Status: Chronic (5) Depression Qualifiers: Status: Chronic (6) GERD (gastroesophageal reflux disease) Qualifiers: Status: Chronic (7) COPD (chronic obstructive pulmonary disease) Status: Chronic - Allergies Allergies/Adverse Reactions: Allergies Allergy/AdvReac Type Severity Reaction Status Date / Time No Known Drug Allergies Allergy Verified 01/15/18 16:52
[2018-05-12 14:07] VITALS: BMI 23.5
[2018-05-12] MEDS: VALPROIC ACID GT SCH ×2 (14:50→21:45)
[2018-05-12] MEDS: THIORIDAZINE 50 MG GT SCH (14:50)
[2018-05-12] MEDS ORDERED: SNACK - Diabetic Appropriate PO SCH (20:00)
[2018-05-12] MEDS: ARICEPT TAB 10 MG GT SCH (21:43)
[2018-05-12] MEDS: TUSSIONEX PENNKINETIC SUSP PEG PRN (21:51)
[2018-05-13 05:05] LABS: ABG ALLEN TEST POS; ABG BASE EXCESS 4.6 mmol/L (-2.0-2.0); ABG HCO3 29.8 mmol/L (22-26)
[2018-05-13] MEDS ORDERED: NS 1/2 1000 ML IV 1,000 ML ONE ×2 (05:31→18:19)
[2018-05-13] MEDS: ASTELIN NASAL SPRAY ENOSTRIL SCH ×3 (05:44→21:29)
[2018-05-13] MEDS: NS 1/2 1000 ML IV 1,000 ML IV SCH ×4 (05:44→22:28)
[2018-05-13] MEDS: VALPROIC ACID GT SCH ×3 (05:45→22:30)
--- NOTE | 2018-05-13 06:15 | RAD ---
Examination: Portable AP chest History: Pneumonia, prostate CA Comparison 05/12/2018 Findings: Continued normal heart size. Right lower lobe infiltrate as previously described. No discrete mass, focal consolidation or pleural fluid. Impression: Persistent right lower lung infiltrate, no interval change since 05/12/2018. Reported By:
[2018-05-13 06:18] LABS: BASOPHILS % (AUTO) 0.3 % (0.2-1.0); EOSINOPHILS # (AUTO) 0.2 x10^3/uL (0.0-0.2); EOSINOPHILS % (AUTO) 1.7 % (0.9-2.9); HEMATOCRIT 34.5 % (42.0-54.0); HEMOGLOBIN 11.8 g/dL (13.5-18.0); LYMPHOCYTES # (AUTO) 1.6 X10^3/uL (1.3-2.9); LYMPHOCYTES % (AUTO) 17.6 % (21.0-51.0); MEAN CORPUSCULAR HEMOGLOBIN 29.9 pg (27.0-34.0); MEAN CORPUSCULAR HGB CONC 34.2 g/dL (33.0-35.0); MEAN CORPUSCULAR VOLUME 87.6 fL (80.0-100.0); MEAN PLATELET VOLUME 8.4 fL (7.4-11.0); MONOCYTES % (AUTO) 10.5 % (0.0-13.0); NEUTROPHILS # (AUTO) 6.5 x10^3/uL (2.2-4.8); NEUTROPHILS % (AUTO) 69.9 % (42.0-75.0); PLATELET COUNT 225 X10^3/uL (150.0-450.0); RED BLOOD COUNT 3.93 X10^6/uL (4.7-6.0); RED CELL DISTRIBUTION WIDTH 14.8 % (11.6-16.5); WHITE BLOOD COUNT 9.3 X10^3/uL (3.6-10.0)
[2018-05-13 06:38] LABS: ALANINE AMINOTRANSFERASE 18 Units/L (12-78); ALBUMIN 2.4 g/dL (3.4-5.0); ALKALINE PHOSPHATASE 54 Units/L (46-116); ASPARTATE AMINO TRANSFERASE 23 Units/L (15-37); BLOOD UREA NITROGEN 22 mg/dL (7-18); CALCIUM 9.3 mg/dL (8.5-10.1); CARBON DIOXIDE 27.1 mmol/L (21-32); CHLORIDE 103 mmol/L (98-107); COR CA(FOR HYPOALB) 10.6 mg/dL (8.5-10.1); CREATININE 1.23 mg/dL (0.70-1.30); SODIUM 139 mmol/L (136-145); eGFR NON BLACK RACES > 60 (>60)
[2018-05-13] MEDS: DUONEB 0.5 MG/3 MG IN SCH ×2 (09:17→20:12)
[2018-05-13] MEDS: PULMICORT NEB TX 0.5 MG NEB SCH ×2 (09:17→20:13)
[2018-05-13] MEDS: MILK OF MAGNESIA PO SCH (09:47)
[2018-05-13] MEDS: XANAX GT SCH ×2 (09:47→21:29)
[2018-05-13] MEDS: TUSSIONEX PENNKINETIC SUSP PEG PRN ×2 (09:47→22:30)
[2018-05-13] MEDS: FLONASE NASAL SPRAY ENOSTRIL SCH ×2 (09:47→21:27)
[2018-05-13] MEDS: VIBRAMYCIN 100 MG in NS 100 ML IV + SPIKE MINIBAG* 100 ML IV SCH ×2 (09:47→21:29)
[2018-05-13] MEDS: ROBITUSSIN DM PO SCH ×4 (09:47→22:29)
[2018-05-13] MEDS: THIORIDAZINE 50 MG GT SCH (09:47)
[2018-05-13] MEDS: ELIQUIS NG SCH ×2 (09:48→21:27)
[2018-05-13] MEDS: COLACE SYRUP 100 MG UDC GT SCH (09:49)
[2018-05-13] MEDS: NAMENDA TAB 10 MG GT SCH ×2 (09:49→21:28)
[2018-05-13] MEDS: LOPRESSOR TAB 25 MG GT SCH ×2 (09:49→21:28)
[2018-05-13] MEDS: EFFEXOR XR 75 MG CAP PO SCH (09:49)
[2018-05-13] MEDS: GEODON PO SCH ×2 (09:49→21:27)
[2018-05-13] MEDS: LASIX GT SCH ×2 (09:49→21:27)
[2018-05-13] MEDS: SINGULAIR TAB 10 MG GT SCH (09:49)
[2018-05-13] MEDS: ARICEPT TAB 10 MG GT SCH (21:27)
[2018-05-14] MEDS ORDERED: NS 1/2 1000 ML IV 1,000 ML ONE ×2 (05:06→19:30)
[2018-05-14] MEDS: ASTELIN NASAL SPRAY ENOSTRIL SCH ×3 (06:28→21:49)
[2018-05-14] MEDS: NS 1/2 1000 ML IV 1,000 ML IV SCH ×3 (06:29→21:48)
[2018-05-14] MEDS: VALPROIC ACID GT SCH ×3 (06:29→21:49)
[2018-05-14 06:33] LABS: BASOPHILS # (AUTO) 0.1 X10^3/uL (0.0-0.1); BASOPHILS % (AUTO) 0.7 % (0.2-1.0); EOSINOPHILS # (AUTO) 0.1 x10^3/uL (0.0-0.2); EOSINOPHILS % (AUTO) 0.9 % (0.9-2.9); HEMATOCRIT 33.8 % (42.0-54.0); HEMOGLOBIN 11.4 g/dL (13.5-18.0); LYMPHOCYTES # (AUTO) 0.9 X10^3/uL (1.3-2.9); LYMPHOCYTES % (AUTO) 9.1 % (21.0-51.0); MEAN CORPUSCULAR HEMOGLOBIN 29.7 pg (27.0-34.0); MEAN CORPUSCULAR HGB CONC 33.9 g/dL (33.0-35.0); MEAN CORPUSCULAR VOLUME 87.8 fL (80.0-100.0); MEAN PLATELET VOLUME 8.2 fL (7.4-11.0); MONOCYTES # (AUTO) 0.7 x10^3/uL (0.3-0.8); MONOCYTES % (AUTO) 7.1 % (0.0-13.0); NEUTROPHILS # (AUTO) 7.7 x10^3/uL (2.2-4.8); NEUTROPHILS % (AUTO) 82.2 % (42.0-75.0); PLATELET COUNT 207 X10^3/uL (150.0-450.0); RED BLOOD COUNT 3.85 X10^6/uL (4.7-6.0); RED CELL DISTRIBUTION WIDTH 14.5 % (11.6-16.5); WHITE BLOOD COUNT 9.4 X10^3/uL (3.6-10.0)
[2018-05-14 06:39] LABS: ALANINE AMINOTRANSFERASE 18 Units/L (12-78); ALBUMIN 2.3 g/dL (3.4-5.0); ALKALINE PHOSPHATASE 54 Units/L (46-116); ASPARTATE AMINO TRANSFERASE 24 Units/L (15-37); BLOOD UREA NITROGEN 19 mg/dL (7-18); CALCIUM 9.1 mg/dL (8.5-10.1); CARBON DIOXIDE 26.9 mmol/L (21-32); CHLORIDE 103 mmol/L (98-107); COR CA(FOR HYPOALB) 10.5 mg/dL (8.5-10.1); CREATININE 1.05 mg/dL (0.70-1.30); SODIUM 139 mmol/L (136-145); TOTAL PROTEIN 6.8 g/dL (6.4-8.2); eGFR NON BLACK RACES > 60 (>60)
--- NOTE | 2018-05-14 07:13 | RAD ---
AP Chest Indication: Pneumonia Comparison: 05/13/2018 Findings: The trachea is midline. The cardiac silhouette is unremarkable. Stable to minimally improved airspace opacities within the right lung base. Remaining lungs are clear with suboptimal inspiration noted bilaterally. No pleural effusion or pneumothorax.. The bony thorax is unremarkable. IMPRESSION: 1. Stable to minimally improved consolidative process within the right lower lobe. Remaining lungs are clear given the limitations of suboptimal inspiration. Reported By:
[2018-05-14] MEDS: DUONEB 0.5 MG/3 MG IN SCH ×2 (09:11→21:01)
[2018-05-14] MEDS: PULMICORT NEB TX 0.5 MG NEB SCH ×2 (09:11→21:01)
[2018-05-14] MEDS: MILK OF MAGNESIA PO SCH (09:29)
[2018-05-14] MEDS: SINGULAIR TAB 10 MG GT SCH (09:29)
[2018-05-14] MEDS: ROBITUSSIN DM PO SCH ×4 (09:29→21:49)
[2018-05-14] MEDS: COLACE SYRUP 100 MG UDC GT SCH (09:29)
[2018-05-14] MEDS: VIBRAMYCIN 100 MG in NS 100 ML IV + SPIKE MINIBAG* 100 ML IV SCH (09:33)
[2018-05-14] MEDS: LOPRESSOR TAB 25 MG GT SCH ×3 (09:37→21:48)
[2018-05-14] MEDS: NAMENDA TAB 10 MG GT SCH ×2 (09:37→21:49)
[2018-05-14] MEDS: XANAX GT SCH ×2 (09:39→21:49)
[2018-05-14] MEDS: EFFEXOR XR 75 MG CAP PO SCH (09:39)
[2018-05-14] MEDS: LASIX GT SCH ×2 (09:39→21:48)
[2018-05-14] MEDS: GEODON PO SCH ×2 (09:39→21:48)
[2018-05-14] MEDS: ELIQUIS NG SCH ×2 (09:40→21:48)
[2018-05-14] MEDS: THIORIDAZINE 50 MG GT SCH (09:47)
[2018-05-14] MEDS: FLONASE NASAL SPRAY ENOSTRIL SCH ×2 (09:47→21:48)
--- NOTE | 2018-05-14 09:51 | PCM.PROG ---
Progress Note - Progress Note for Day of Date of Exam: 05/12/18 - Subjective Subjective: 73 WM ER ADMISSION FROM [facility] ON 05/11 WITH SUSPECTED ASPIRATION PNEUMONIA. PT HAS HX OF CVA WITH DYSPHAGIA, PT ON G TUBE FEEDINGS. PT HAD DIFFUSE RHONCHI ON EXAM THIS AM WBC, 17.2 PO2 ON ABG 59, BUN 22 CREAT 1.23. PT IS CURRENTLY ON IV ABTX WITH RESP THERAPY, WE HAVE RESUMED HOME MEDICATION AND CULTURES COLLECTED ON ADMISSION ARE PENDING, WILL REPEAT AM LABS AND ABG. - Past Medical Family Social History Past Med/Fam/Surg Hx: No changes since H&P Allergies: Allergies No Known Drug Allergies Allergy (Verified 01/15/18 16:52) - Review of Systems ROS: No change since H&P - Vital Signs and I&O's Vital Signs: Temperature 99.2 F Pulse Rate [Brachial] 80 Pulse Rate 81 Respiratory Rate 22 Blood Pressure [Left Arm] 107/59 Blood Pressure [Right Arm] 127/63 Blood Pressure 126/69 O2 Sat by Pulse Oximetry 95 Intake and Output: Intake & Output 05/11/18 05/12/18 05/13/18 05/14/18 11:59 11:59 11:59 11:59 Intake Total 0 / 0 1350 / 1350 1123 / 1123 Output Total 100 / 100 2750 / 2750 1675 / 1675 Balance -100 / -100 -1400 / -1400 -552 / -552 - Physical Exam Oriented: Person Eyes: Normal Ear: Normal Nose: Normal Throat: Normal Respiratory: Diminished, Rhonchi Cardiovascular: Normal : Normal Auscultation: Bowel Sounds: Normal Palpation: Normal Tenderness: Normal Skin: Decreased Turgur Musculoskeletal: Right, Left, Motor Deficit Psychiatric: Anxiety Affect: Anxious Speech Pattern: Unclear, Aphasic - Laboratory and Diagnostics Result Diagrams: 05/14/18 05:38 05/14/18 05:38 Labs: 05/12/18 01:40 Urine,Clean Catch Urine Culture - Final 05/12/18 02:25 Sputum - Endotracheal Wash Sputum Culture - Final Proteus Mirabilis 05/12/18 02:25 Sputum - Endotracheal Wash - Final 05/12/18 04:00 Peg Tube Gram Stain - Final 05/12/18 04:00 Peg Tube Wound Culture - Preliminary Laboratory WBC 9.4 X10^3/uL (3.6-10.0) 05/14/18 05:38 RBC 3.85 X10^6/uL (4.7-6.0) L 05/14/18 05:38 Hgb 11.4 g/dL (13.5-18.0) L 05/14/18 05:38 Hct 33.8 % (42.0-54.0) L 05/14/18 05:38 MCV 87.8 fL (80.0-100.0) 05/14/18 05:38 MCH 29.7 pg (27.0-34.0) 05/14/18 05:38 MCHC 33.9 g/dL (33.0-35.0) 05/14/18 05:38 RDW 14.5 % (11.6-16.5) 05/14/18 05:38 Plt Count 207 X10^3/uL (150.0-450.0) 05/14/18 05:38 MPV 8.2 fL (7.4-11.0) 05/14/18 05:38 Neut % (Auto) 82.2 % (42.0-75.0) H 05/14/18 05:38 Lymph % (Auto) 9.1 % (21.0-51.0) L 05/14/18 05:38 [place] % (Auto) 7.1 % (0.0-13.0) 05/14/18 05:38 Eos % (Auto) 0.9 % (0.9-2.9) 05/14/18 05:38 Baso % (Auto) 0.7 % (0.2-1.0) 05/14/18 05:38 Neut # (Auto) 7.7 x10^3/uL (2.2-4.8) H 05/14/18 05:38 Lymph # (Auto) 0.9 X10^3/uL (1.3-2.9) L 05/14/18 05:38 [place] # (Auto) 0.7 x10^3/uL (0.3-0.8) 05/14/18 05:38 Eos # (Auto) 0.1 x10^3/uL (0.0-0.2) 05/14/18 05:38 Baso # (Auto) 0.1 X10^3/uL (0.0-0.1) 05/14/18 05:38 Absolute Nucleated RBC 0.0 /100WBC 05/14/18 05:38 INR Target Range - 05/12/18 01:12 INR 1.25 (0.8-1.3) 05/12/18 01:12 APTT 39.7 SECONDS (22.9-36.5) H 05/12/18 01:12 PTT Comment - 05/12/18 01:12 Sample Site Lr 05/13/18 04:55 ABG pH 7.420 (7.35-7.45) 05/13/18 04:55 ABG pCO2 46.0 mmHg (35.0-45.0) H 05/13/18 04:55 ABG pO2 74.0 mmHg (80.0-100.0) L 05/13/18 04:55 ABG HCO3 29.8 mmol/L (22-26) H 05/13/18 04:55 ABG O2 Saturation 95.0 % (90-100) 05/13/18 04:55 ABG Base Excess 4.6 mmol/L (-2.0-2.0) H 05/13/18 04:55 Jeremie Test Pos 05/13/18 04:55 A-a Gradient 97.0 mmHg 05/13/18 04:55 FiO2 32.0 05/13/18 04:55 Blood Gas Comments Carmella well ae 05/13/18 04:55 Sodium 139 mmol/L (136-145) 05/14/18 05:38 Corrected Sodium TNP 05/14/18 05:38 Potassium 4.0 mmol/L (3.5-5.1) 05/14/18 05:38 Chloride 103 mmol/L (98-107) 05/14/18 05:38 Carbon Dioxide 26.9 mmol/L (21-32) 05/14/18 05:38 BUN 19 mg/dL (7-18) H 05/14/18 05:38 Creatinine 1.05 mg/dL (0.70-1.30) 05/14/18 05:38 Est GFR (MDRD) Af Amer > 60 (>60) 05/14/18 05:38 Est GFR (MDRD) Non-Af > 60 (>60) 05/14/18 05:38 Glucose 68 mg/dL (65-99) 05/14/18 05:38 POC Glucose (mg/dL) 65 mg/dL (65-99) 05/14/18 05:19 Calcium 9.1 mg/dL (8.5-10.1) 05/14/18 05:38 Corrected Calcium 10.5 mg/dL (8.5-10.1) H 05/14/18 05:38 Total Bilirubin 0.50 mg/dL (0.2-1.0) 05/14/18 05:38 AST 24 Units/L (15-37) 05/14/18 05:38 ALT 18 Units/L (12-78) 05/14/18 05:38 Alkaline Phosphatase 54 Units/L (46-116) 05/14/18 05:38 Creatine Kinase 191 Units/L (39-308) 05/12/18 01:12 CK-MB (CK-2) 1.6 ng/mL (0-4.0) 05/12/18 01:12 CK/CKMB % Calc 0.8 % (<4) 05/12/18 01:12 Troponin I < 0.02 ng/mL (0-1.5) 05/12/18 01:12 B-Natriuretic Peptide 81.3 pg/mL (0-79) H 05/12/18 01:12 Total Protein 6.8 g/dL (6.4-8.2) 05/14/18 05:38 Albumin 2.3 g/dL (3.4-5.0) L 05/14/18 05:38 Globulin 4.5 g/dL (2.5-4.5) 05/14/18 05:38 Albumin/Globulin Ratio 0.5 Ratio (1.1-2.1) L 05/14/18 05:38 Specimen Type Random urine 05/12/18 03:12 Urine Color Yellow (YELLOW) 05/12/18 03:12 Urine Appearance Clear (CLEAR) 05/12/18 03:12 Urine pH 7.0 (5.0 - 8.0) 05/12/18 03:12 Ur Specific [place] 1.015 (1.000-1.030) 05/12/18 03:12 Urine Protein 2+ (NEGATIVE) 05/12/18 03:12 Urine Glucose (UA) Negative (NEGATIVE) 05/12/18 03:12 Urine Ketones Negative (NEGATIVE) 05/12/18 03:12 Urine Occult Blood 3+ (NEGATIVE) 05/12/18 03:12 Urine Nitrite Negative (NEGATIVE) 05/12/18 03:12 Urine Bilirubin Negative (NEGATIVE) 05/12/18 03:12 Urine Urobilinogen 2+ (NORMAL) 05/12/18 03:12 Ur Leukocyte Esterase 1+ (NEGATIVE) 05/12/18 03:12 Urine RBC 20-30 /HPF (NONE SEEN) 05/12/18 03:12 Urine WBC 5-10 /HPF (NONE SEEN) 05/12/18 03:12 Ur Squamous Epith Cells Few /HPF (NEGATIVE) 05/12/18 03:12 Urine Bacteria 1+ /HPF (NEGATIVE) 05/12/18 03:12 Urine Mucus Few /HPF (NEGATIVE) 05/12/18 03:12 Ur Culture Indicated? Yes/culture set up 05/12/18 03:12 - Plan (1) Aspiration pneumonia Status: Acute Plan: PNEUMONIA PROTOCOL, RESP THERAPY. SUPPLEMENTAL O2, ABG ON ADMISSION. GTUBE FEEDINGS. ASPIRATION PRECAUTIONS. BLOOD AND SPUTUM CULTURES COLLECTED ON ADMISSION. CXR ON ADMISSION, VERIFY HOME MEDICATION (2) Status post CVA Status: Acute (3) Hypertension Status: Chronic Qualifiers: (4) Dementia Status: Chronic Qualifiers: (5) Depression Status: Chronic Qualifiers: (6) GERD (gastroesophageal reflux disease) Status: Chronic Qualifiers: (7) COPD (chronic obstructive pulmonary disease) Status: Chronic
--- NOTE | 2018-05-14 09:52 | PCM.PROG ---
Progress Note - Progress Note for Day of Date of Exam: 05/13/18 - Subjective Subjective: 73 WM ER ADMISSION FROM [facility] ON 05/11 WITH SUSPECTED ASPIRATION PNEUMONIA. PT HAS HX OF CVA WITH DYSPHAGIA, PT ON G TUBE FEEDINGS. PT HAD DIFFUSE RHONCHI ON EXAM THIS AM WBC, 9.2 PO2 ON ABG 74, BUN 19 CREAT 1.08. PT IS CURRENTLY ON IV ABTX WITH RESP THERAPY, WE HAVE RESUMED HOME MEDICATION AND CULTURES COLLECTED ON ADMISSION ARE PENDING, WILL REPEAT AM LABS AND CXR. - Past Medical Family Social History Past Med/Fam/Surg Hx: No changes since H&P Allergies: Allergies No Known Drug Allergies Allergy (Verified 01/15/18 16:52) - Review of Systems ROS: No change since H&P - Vital Signs and I&O's Vital Signs: Temperature 99.2 F Pulse Rate [Brachial] 80 Pulse Rate 81 Respiratory Rate 22 Blood Pressure [Left Arm] 107/59 Blood Pressure [Right Arm] 127/63 Blood Pressure 126/69 O2 Sat by Pulse Oximetry 95 Intake and Output: Intake & Output 05/11/18 05/12/18 05/13/18 05/14/18 11:59 11:59 11:59 11:59 Intake Total 0 / 0 1350 / 1350 1123 / 1123 Output Total 100 / 100 2750 / 2750 1675 / 1675 Balance -100 / -100 -1400 / -1400 -552 / -552 - Physical Exam Oriented: Person Eyes: Normal Ear: Normal Nose: Normal Throat: Normal Respiratory: Diminished, Rhonchi Cardiovascular: Normal : Normal Auscultation: Bowel Sounds: Normal Tenderness: Normal Skin: Decreased Turgur Musculoskeletal: Right, Left, Motor Deficit Psychiatric: Anxiety Affect: Anxious Speech Pattern: Unclear, Aphasic - Laboratory and Diagnostics Result Diagrams: 05/14/18 05:38 05/14/18 05:38 Labs: 05/12/18 01:40 Urine,Clean Catch Urine Culture - Final 05/12/18 02:25 Sputum - Endotracheal Wash Sputum Culture - Final Proteus Mirabilis 05/12/18 02:25 Sputum - Endotracheal Wash - Final 05/12/18 04:00 Peg Tube Gram Stain - Final 05/12/18 04:00 Peg Tube Wound Culture - Preliminary Laboratory WBC 9.4 X10^3/uL (3.6-10.0) 05/14/18 05:38 RBC 3.85 X10^6/uL (4.7-6.0) L 05/14/18 05:38 Hgb 11.4 g/dL (13.5-18.0) L 05/14/18 05:38 Hct 33.8 % (42.0-54.0) L 05/14/18 05:38 MCV 87.8 fL (80.0-100.0) 05/14/18 05:38 MCH 29.7 pg (27.0-34.0) 05/14/18 05:38 MCHC 33.9 g/dL (33.0-35.0) 05/14/18 05:38 RDW 14.5 % (11.6-16.5) 05/14/18 05:38 Plt Count 207 X10^3/uL (150.0-450.0) 05/14/18 05:38 MPV 8.2 fL (7.4-11.0) 05/14/18 05:38 Neut % (Auto) 82.2 % (42.0-75.0) H 05/14/18 05:38 Lymph % (Auto) 9.1 % (21.0-51.0) L 05/14/18 05:38 [place] % (Auto) 7.1 % (0.0-13.0) 05/14/18 05:38 Eos % (Auto) 0.9 % (0.9-2.9) 05/14/18 05:38 Baso % (Auto) 0.7 % (0.2-1.0) 05/14/18 05:38 Neut # (Auto) 7.7 x10^3/uL (2.2-4.8) H 05/14/18 05:38 Lymph # (Auto) 0.9 X10^3/uL (1.3-2.9) L 05/14/18 05:38 [place] # (Auto) 0.7 x10^3/uL (0.3-0.8) 05/14/18 05:38 Eos # (Auto) 0.1 x10^3/uL (0.0-0.2) 05/14/18 05:38 Baso # (Auto) 0.1 X10^3/uL (0.0-0.1) 05/14/18 05:38 Absolute Nucleated RBC 0.0 /100WBC 05/14/18 05:38 INR Target Range - 05/12/18 01:12 INR 1.25 (0.8-1.3) 05/12/18 01:12 APTT 39.7 SECONDS (22.9-36.5) H 05/12/18 01:12 PTT Comment - 05/12/18 01:12 Sample Site Lr 05/13/18 04:55 ABG pH 7.420 (7.35-7.45) 05/13/18 04:55 ABG pCO2 46.0 mmHg (35.0-45.0) H 05/13/18 04:55 ABG pO2 74.0 mmHg (80.0-100.0) L 05/13/18 04:55 ABG HCO3 29.8 mmol/L (22-26) H 05/13/18 04:55 ABG O2 Saturation 95.0 % (90-100) 05/13/18 04:55 ABG Base Excess 4.6 mmol/L (-2.0-2.0) H 05/13/18 04:55 Jeremie Test Pos 05/13/18 04:55 A-a Gradient 97.0 mmHg 05/13/18 04:55 FiO2 32.0 05/13/18 04:55 Blood Gas Comments Carmella well ae 05/13/18 04:55 Sodium 139 mmol/L (136-145) 05/14/18 05:38 Corrected Sodium TNP 05/14/18 05:38 Potassium 4.0 mmol/L (3.5-5.1) 05/14/18 05:38 Chloride 103 mmol/L (98-107) 05/14/18 05:38 Carbon Dioxide 26.9 mmol/L (21-32) 05/14/18 05:38 BUN 19 mg/dL (7-18) H 05/14/18 05:38 Creatinine 1.05 mg/dL (0.70-1.30) 05/14/18 05:38 Est GFR (MDRD) Af Amer > 60 (>60) 05/14/18 05:38 Est GFR (MDRD) Non-Af > 60 (>60) 05/14/18 05:38 Glucose 68 mg/dL (65-99) 05/14/18 05:38 POC Glucose (mg/dL) 65 mg/dL (65-99) 05/14/18 05:19 Calcium 9.1 mg/dL (8.5-10.1) 05/14/18 05:38 Corrected Calcium 10.5 mg/dL (8.5-10.1) H 05/14/18 05:38 Total Bilirubin 0.50 mg/dL (0.2-1.0) 05/14/18 05:38 AST 24 Units/L (15-37) 05/14/18 05:38 ALT 18 Units/L (12-78) 05/14/18 05:38 Alkaline Phosphatase 54 Units/L (46-116) 05/14/18 05:38 Creatine Kinase 191 Units/L (39-308) 05/12/18 01:12 CK-MB (CK-2) 1.6 ng/mL (0-4.0) 05/12/18 01:12 CK/CKMB % Calc 0.8 % (<4) 05/12/18 01:12 Troponin I < 0.02 ng/mL (0-1.5) 05/12/18 01:12 B-Natriuretic Peptide 81.3 pg/mL (0-79) H 05/12/18 01:12 Total Protein 6.8 g/dL (6.4-8.2) 05/14/18 05:38 Albumin 2.3 g/dL (3.4-5.0) L 05/14/18 05:38 Globulin 4.5 g/dL (2.5-4.5) 05/14/18 05:38 Albumin/Globulin Ratio 0.5 Ratio (1.1-2.1) L 05/14/18 05:38 Specimen Type Random urine 05/12/18 03:12 Urine Color Yellow (YELLOW) 05/12/18 03:12 Urine Appearance Clear (CLEAR) 05/12/18 03:12 Urine pH 7.0 (5.0 - 8.0) 05/12/18 03:12 Ur Specific [place] 1.015 (1.000-1.030) 05/12/18 03:12 Urine Protein 2+ (NEGATIVE) 05/12/18 03:12 Urine Glucose (UA) Negative (NEGATIVE) 05/12/18 03:12 Urine Ketones Negative (NEGATIVE) 05/12/18 03:12 Urine Occult Blood 3+ (NEGATIVE) 05/12/18 03:12 Urine Nitrite Negative (NEGATIVE) 05/12/18 03:12 Urine Bilirubin Negative (NEGATIVE) 05/12/18 03:12 Urine Urobilinogen 2+ (NORMAL) 05/12/18 03:12 Ur Leukocyte Esterase 1+ (NEGATIVE) 05/12/18 03:12 Urine RBC 20-30 /HPF (NONE SEEN) 05/12/18 03:12 Urine WBC 5-10 /HPF (NONE SEEN) 05/12/18 03:12 Ur Squamous Epith Cells Few /HPF (NEGATIVE) 05/12/18 03:12 Urine Bacteria 1+ /HPF (NEGATIVE) 05/12/18 03:12 Urine Mucus Few /HPF (NEGATIVE) 05/12/18 03:12 Ur Culture Indicated? Yes/culture set up 05/12/18 03:12 - Plan (1) Aspiration pneumonia Status: Acute Plan: PNEUMONIA PROTOCOL, RESP THERAPY. SUPPLEMENTAL O2, ABG ON ADMISSION. GTUBE FEEDINGS. ASPIRATION PRECAUTIONS. BLOOD AND SPUTUM CULTURES COLLECTED ON ADMISSION. CXR ON ADMISSION, VERIFY HOME MEDICATION (2) Status post CVA Status: Acute (3) Hypertension Status: Chronic Qualifiers: (4) Dementia Status: Chronic Qualifiers: (5) Depression Status: Chronic Qualifiers: (6) GERD (gastroesophageal reflux disease) Status: Chronic Qualifiers: (7) COPD (chronic obstructive pulmonary disease) Status: Chronic
[2018-05-14] MEDS: INVANZ INJ 1 GM VIAL 1 GM in NS 100 ML IV + SPIKE MINIBAG* 100 ML IV SCH (13:02)
[2018-05-14] MEDS ORDERED: TYLENOL 325 MG TAB PO PRN (20:17)
--- NOTE | 2018-05-14 21:41 | PCM.PROG ---
Progress Note - Progress Note for Day of Date of Exam: 05/14/18 - Subjective Subjective: WAS ADMITTED FOR ASPIRATION PNEUMONIA. HE HAS BEEN RECEIVING CIPRO BY MOUTH SINCE 05/10. LONG-TERM REPORTED THAT HE CONTINUED TO RUN FEVER AND BE SHORT OF BREATH DESPITE RECEIVING ANTIBIOITICS. HE HAS A HISTORY OF CVA WITH DYSPHAGIA. HE HAS A G-TUBE FOR FEEDINGS. TODAY, HE IS ALERT, LYING IN BED ON MORNING ROUNDS. HE CONTINUES WITH DIFFUSE RHONCHI. HIS VITALS THIS MORNING ARE 99.2-80-20-97%-106/62. LABS WERE OBTAINED. ABNORMAL LAB VALUES INCLUDE THE FOLLOWING: RBC 3.85, HGB 11.4, HCT 33.8, BUN 19, ALBUMIN 2.3. SPUTUM CULTURE AND CULTURE OF PEG TUBE REPORT GROWTH OF PROTEUS MIRABILIS. TODAYS CHEST XRAY REVEALS: Stable to minimally improved consolidative process within the right lower lobe. Remaining lungs are clear given the limitations of suboptimal inspiration. WE WILL DISCONTINUE HIS CURRENT ANTIBIOTICS AND START INVANZ 1GM IV DAILY TODAY. OTHERWISE, WE WILL CONTINUE WITH CURRENT PLAN OF CARE. WE PLAN TO FOLLOW UP WITH AM LABS AND CONTINUE TO MONITOR. - Past Medical Family Social History Past Med/Fam/Surg Hx: No changes since H&P Allergies: Allergies No Known Drug Allergies Allergy (Verified 01/15/18 16:52) - Review of Systems ROS: No change since H&P - Vital Signs and I&O's Vital Signs: Temperature 99.5 F Pulse Rate [Brachial] 120 Pulse Rate 81 Respiratory Rate 20 Blood Pressure [Left Arm] 107/59 Blood Pressure [Right Arm] 124/70 Blood Pressure 126/69 O2 Sat by Pulse Oximetry 95 Intake and Output: Intake & Output 05/12/18 05/13/18 05/14/18 05/15/18 11:59 11:59 11:59 11:59 Intake Total 0 / 0 1350 / 1350 1123 / 1123 0 / 0 Output Total 100 / 100 2750 / 2750 1675 / 1675 300 / 300 Balance -100 / -100 -1400 / -1400 -552 / -552 -300 / -300 - Physical Exam Oriented: Person Eyes: Normal Ear: Normal Nose: Normal Throat: Normal Respiratory: Diminished, Rhonchi Cardiovascular: Normal : Normal Auscultation: Bowel Sounds: Normal Palpation: Normal Tenderness: Normal Skin: Decreased Turgur Musculoskeletal: Right, Left, Motor Deficit Psychiatric: Anxiety Affect: Anxious Speech Pattern: Unclear, Aphasic - Laboratory and Diagnostics Result Diagrams: 05/14/18 05:38 05/14/18 05:38 Labs: 05/12/18 02:17 Blood Blood Culture - Preliminary 05/12/18 02:10 Blood Blood Culture - Preliminary 05/12/18 04:00 Peg Tube Gram Stain - Final 05/12/18 04:00 Peg Tube Wound Culture - Final Proteus Mirabilis 05/12/18 01:40 Urine,Clean Catch Urine Culture - Final 05/12/18 02:25 Sputum - Endotracheal Wash Sputum Culture - Final Proteus Mirabilis 05/12/18 02:25 Sputum - Endotracheal Wash - Final Laboratory WBC 9.4 X10^3/uL (3.6-10.0) 05/14/18 05:38 RBC 3.85 X10^6/uL (4.7-6.0) L 05/14/18 05:38 Hgb 11.4 g/dL (13.5-18.0) L 05/14/18 05:38 Hct 33.8 % (42.0-54.0) L 05/14/18 05:38 MCV 87.8 fL (80.0-100.0) 05/14/18 05:38 MCH 29.7 pg (27.0-34.0) 05/14/18 05:38 MCHC 33.9 g/dL (33.0-35.0) 05/14/18 05:38 RDW 14.5 % (11.6-16.5) 05/14/18 05:38 Plt Count 207 X10^3/uL (150.0-450.0) 05/14/18 05:38 MPV 8.2 fL (7.4-11.0) 05/14/18 05:38 Neut % (Auto) 82.2 % (42.0-75.0) H 05/14/18 05:38 Lymph % (Auto) 9.1 % (21.0-51.0) L 05/14/18 05:38 [place] % (Auto) 7.1 % (0.0-13.0) 05/14/18 05:38 Eos % (Auto) 0.9 % (0.9-2.9) 05/14/18 05:38 Baso % (Auto) 0.7 % (0.2-1.0) 05/14/18 05:38 Neut # (Auto) 7.7 x10^3/uL (2.2-4.8) H 05/14/18 05:38 Lymph # (Auto) 0.9 X10^3/uL (1.3-2.9) L 05/14/18 05:38 [place] # (Auto) 0.7 x10^3/uL (0.3-0.8) 05/14/18 05:38 Eos # (Auto) 0.1 x10^3/uL (0.0-0.2) 05/14/18 05:38 Baso # (Auto) 0.1 X10^3/uL (0.0-0.1) 05/14/18 05:38 Absolute Nucleated RBC 0.0 /100WBC 05/14/18 05:38 INR Target Range - 05/12/18 01:12 INR 1.25 (0.8-1.3) 05/12/18 01:12 APTT 39.7 SECONDS (22.9-36.5) H 05/12/18 01:12 PTT Comment - 05/12/18 01:12 Sample Site Lr 05/13/18 04:55 ABG pH 7.420 (7.35-7.45) 05/13/18 04:55 ABG pCO2 46.0 mmHg (35.0-45.0) H 05/13/18 04:55 ABG pO2 74.0 mmHg (80.0-100.0) L 05/13/18 04:55 ABG HCO3 29.8 mmol/L (22-26) H 05/13/18 04:55 ABG O2 Saturation 95.0 % (90-100) 05/13/18 04:55 ABG Base Excess 4.6 mmol/L (-2.0-2.0) H 05/13/18 04:55 Jeremie Test Pos 05/13/18 04:55 A-a Gradient 97.0 mmHg 05/13/18 04:55 FiO2 32.0 05/13/18 04:55 Blood Gas Comments Carmella well ae 05/13/18 04:55 Sodium 139 mmol/L (136-145) 03/25/19 05:38 Corrected Sodium TNP 05/14/18 05:38 Potassium 4.0 mmol/L (3.5-5.1) 05/14/18 05:38 Chloride 103 mmol/L (98-107) 05/14/18 05:38 Carbon Dioxide 26.9 mmol/L (21-32) 05/14/18 05:38 BUN 19 mg/dL (7-18) H 05/14/18 05:38 Creatinine 1.05 mg/dL (0.70-1.30) 05/14/18 05:38 Est GFR (MDRD) Af Amer > 60 (>60) 05/14/18 05:38 Est GFR (MDRD) Non-Af > 60 (>60) 05/14/18 05:38 Glucose 68 mg/dL (65-99) 05/14/18 05:38 POC Glucose (mg/dL) 91 mg/dL (65-99) 05/14/18 21:21 Calcium 9.1 mg/dL (8.5-10.1) 05/14/18 05:38 Corrected Calcium 10.5 mg/dL (8.5-10.1) H 05/14/18 05:38 Total Bilirubin 0.50 mg/dL (0.2-1.0) 05/14/18 05:38 AST 24 Units/L (15-37) 05/14/18 05:38 ALT 18 Units/L (12-78) 05/14/18 05:38 Alkaline Phosphatase 54 Units/L (46-116) 05/14/18 05:38 Creatine Kinase 191 Units/L (39-308) 05/12/18 01:12 CK-MB (CK-2) 1.6 ng/mL (0-4.0) 05/12/18 01:12 CK/CKMB % Calc 0.8 % (<4) 05/12/18 01:12 Troponin I < 0.02 ng/mL (0-1.5) 05/12/18 01:12 B-Natriuretic Peptide 81.3 pg/mL (0-79) H 05/12/18 01:12 Total Protein 6.8 g/dL (6.4-8.2) 05/14/18 05:38 Albumin 2.3 g/dL (3.4-5.0) L 05/14/18 05:38 Globulin 4.5 g/dL (2.5-4.5) 05/14/18 05:38 Albumin/Globulin Ratio 0.5 Ratio (1.1-2.1) L 05/14/18 05:38 Specimen Type Random urine 05/12/18 03:12 Urine Color Yellow (YELLOW) 05/12/18 03:12 Urine Appearance Clear (CLEAR) 05/12/18 03:12 Urine pH 7.0 (5.0 - 8.0) 05/12/18 03:12 Ur Specific [place] 1.015 (1.000-1.030) 05/12/18 03:12 Urine Protein 2+ (NEGATIVE) 05/12/18 03:12 Urine Glucose (UA) Negative (NEGATIVE) 05/12/18 03:12 Urine Ketones Negative (NEGATIVE) 05/12/18 03:12 Urine Occult Blood 3+ (NEGATIVE) 05/12/18 03:12 Urine Nitrite Negative (NEGATIVE) 05/12/18 03:12 Urine Bilirubin Negative (NEGATIVE) 05/12/18 03:12 Urine Urobilinogen 2+ (NORMAL) 05/12/18 03:12 Ur Leukocyte Esterase 1+ (NEGATIVE) 05/12/18 03:12 Urine RBC 20-30 /HPF (NONE SEEN) 05/12/18 03:12 Urine WBC 5-10 /HPF (NONE SEEN) 05/12/18 03:12 Ur Squamous Epith Cells Few /HPF (NEGATIVE) 05/12/18 03:12 Urine Bacteria 1+ /HPF (NEGATIVE) 05/12/18 03:12 Urine Mucus Few /HPF (NEGATIVE) 05/12/18 03:12 Ur Culture Indicated? Yes/culture set up 05/12/18 03:12 - Plan (1) Aspiration pneumonia Status: Acute Qualifiers: Aspiration pneumonia type: due to gastric secretions Laterality: unspecified laterality Lung location: unspecified part of lung Qualified Code(s): J69.0 - Pneumonitis due to inhalation of food and vomit Plan: INVANZ 1GM IV DAILY, RESPIRATORY TX, SUPPLEMENTAL OXYGEN, CONTINUE TO MONITOR
[2018-05-14] MEDS: ARICEPT TAB 10 MG GT SCH (21:48)
[2018-05-15] MEDS: ASTELIN NASAL SPRAY ENOSTRIL SCH ×3 (05:55→21:42)
[2018-05-15] MEDS: NS 1/2 1000 ML IV 1,000 ML IV SCH ×2 (05:55→21:38)
[2018-05-15] MEDS: VALPROIC ACID GT SCH ×3 (05:56→21:43)
[2018-05-15] MEDS ORDERED: NS 1/2 1000 ML IV 1,000 ML ONE ×2 (06:09→21:37)
[2018-05-15 06:43] LABS: ALANINE AMINOTRANSFERASE 21 Units/L (12-78); ALBUMIN 2.4 g/dL (3.4-5.0); ALKALINE PHOSPHATASE 59 Units/L (46-116); ASPARTATE AMINO TRANSFERASE 24 Units/L (15-37); BLOOD UREA NITROGEN 14 mg/dL (7-18); CALCIUM 9.2 mg/dL (8.5-10.1); CARBON DIOXIDE 28.3 mmol/L (21-32); CHLORIDE 104 mmol/L (98-107); COR CA(FOR HYPOALB) 10.5 mg/dL (8.5-10.1); CREATININE 1.01 mg/dL (0.70-1.30); SODIUM 141 mmol/L (136-145); TOTAL PROTEIN 7.2 g/dL (6.4-8.2); eGFR NON BLACK RACES > 60 (>60)
[2018-05-15 07:05] LABS: BASOPHILS # (AUTO) 0.1 X10^3/uL (0.0-0.1); BASOPHILS % (AUTO) 0.5 % (0.2-1.0); EOSINOPHILS # (AUTO) 0.1 x10^3/uL (0.0-0.2); EOSINOPHILS % (AUTO) 0.9 % (0.9-2.9); HEMATOCRIT 35.8 % (42.0-54.0); HEMOGLOBIN 12.1 g/dL (13.5-18.0); LYMPHOCYTES # (AUTO) 1.4 X10^3/uL (1.3-2.9); LYMPHOCYTES % (AUTO) 14.1 % (21.0-51.0); MEAN CORPUSCULAR HEMOGLOBIN 29.9 pg (27.0-34.0); MEAN CORPUSCULAR HGB CONC 33.9 g/dL (33.0-35.0); MEAN CORPUSCULAR VOLUME 88.1 fL (80.0-100.0); MEAN PLATELET VOLUME 8.3 fL (7.4-11.0); MONOCYTES # (AUTO) 0.7 x10^3/uL (0.3-0.8); MONOCYTES % (AUTO) 7.2 % (0.0-13.0); NEUTROPHILS # (AUTO) 7.4 x10^3/uL (2.2-4.8); NEUTROPHILS % (AUTO) 77.3 % (42.0-75.0); PLATELET COUNT 228 X10^3/uL (150.0-450.0); RED BLOOD COUNT 4.06 X10^6/uL (4.7-6.0); RED CELL DISTRIBUTION WIDTH 14.6 % (11.6-16.5); WHITE BLOOD COUNT 9.6 X10^3/uL (3.6-10.0)
--- NOTE | 2018-05-15 08:37 | RAD ---
HISTORY: Pneumonia. Prior history of CVA, hypertension and prostate cancer. Study: Single-view chest Comparison: 05/14/2018. Findings: Trachea is midline. Heart size is normal. Increased interstitial markings are again seen bilaterally, more focally in the right lower lobe, without significant change compared to prior studies. No pleural fluid, CHF or pneumothorax is seen. Osseous structures are intact. IMPRESSION: No significant interval change. Reported By:
[2018-05-15] MEDS: DUONEB 0.5 MG/3 MG IN SCH ×2 (09:27→20:32)
[2018-05-15] MEDS: PULMICORT NEB TX 0.5 MG NEB SCH ×2 (09:27→20:33)
[2018-05-15] MEDS: INVANZ INJ 1 GM VIAL 1 GM in NS 100 ML IV + SPIKE MINIBAG* 100 ML IV SCH (10:00)
[2018-05-15] MEDS: FLONASE NASAL SPRAY ENOSTRIL SCH ×2 (10:00→21:41)
[2018-05-15] MEDS: ROBITUSSIN DM PO SCH ×4 (10:00→21:41)
[2018-05-15] MEDS: COLACE SYRUP 100 MG UDC GT SCH (10:00)
[2018-05-15] MEDS: GEODON PO SCH ×2 (10:00→21:40)
[2018-05-15] MEDS: MILK OF MAGNESIA PO SCH (10:00)
[2018-05-15] MEDS: XANAX GT SCH ×2 (10:01→21:41)
[2018-05-15] MEDS: NAMENDA TAB 10 MG GT SCH ×2 (10:01→21:40)
[2018-05-15] MEDS: ELIQUIS NG SCH ×2 (10:01→21:40)
[2018-05-15] MEDS: LASIX GT SCH ×2 (10:01→21:40)
[2018-05-15] MEDS: LOPRESSOR TAB 25 MG GT SCH ×2 (10:02→21:41)
[2018-05-15] MEDS: EFFEXOR XR 75 MG CAP PO SCH (10:02)
[2018-05-15] MEDS: SINGULAIR TAB 10 MG GT SCH (10:02)
[2018-05-15] MEDS: THIORIDAZINE 50 MG GT SCH (10:11)
--- NOTE | 2018-05-15 19:57 | PCM.PROG ---
Progress Note - Progress Note for Day of Date of Exam: 05/15/18 - Subjective Subjective: DARREN WAS ADMITTED FOR ASPIRATION PNEUMONIA. HE HAS BEEN RECEIVING CIPRO BY MOUTH SINCE 05/10. TODAY, HE IS ALERT, LYING IN BED ON MORNING ROUNDS. HE CONTINUES WITH DIFFUSE RHONCHI. HIS VITALS THIS MORNING ARE 98.7-80-18-99%-129/59. LABS WERE OBTAINED. ABNORMAL LAB VALUES INCLUDE THE FOLLOWING: RBC 4.06, HGB 12.1, HCT 35.8, ALBUMIN 2.4, GLOBULIN 4.8. SPUTUM CULTURE AND CULTURE OF PEG TUBE REPORT GROWTH OF PROTEUS MIRABILIS. TODAYS CHEST XRAY REVEALS: Trachea is midline. Heart size is normal. Increased interstitial markings are again seen bilaterally, more focally in the right lower lobe, without significant change compared to prior studies. No pleural fluid, CHF or pneumothorax is seen. Osseous structures are intact. WE WILL CONTINUE INVANZ 1G IV DAILY TODAY WELL RESPIRATORY TREATMENTS AND HOME MEDICATIONS. OTHERWISE, WE PLAN TO FOLLOW UP WITH AM LABS AND CONTINUE TO [facility]. - Past Medical Family Social History Past Med/Fam/Surg Hx: No changes since H&P Allergies: Allergies No Known Drug Allergies Allergy (Verified 01/15/18 16:52) - Review of Systems ROS: No change since H&P - Vital Signs and I&O's Vital Signs: Temperature 99.3 F Pulse Rate [Brachial] 62 Pulse Rate 104 Respiratory Rate 18 Blood Pressure [Left Arm] 123/57 Blood Pressure [Right Arm] 117/61 Blood Pressure 126/69 O2 Sat by Pulse Oximetry 97 Intake and Output: Intake & Output 05/13/18 05/14/18 05/15/18 05/16/18 11:59 11:59 11:59 11:59 Intake Total 1350 / 1350 1123 / 1123 935 / 935 100 / 100 Output Total 2750 / 2750 1675 / 1675 950 / 950 350 / 350 Balance -1400 / -1400 -552 / -552 -15 / -15 -250 / -250 - Physical Exam Oriented: Person Eyes: Normal Ear: Normal Nose: Normal Throat: Normal Respiratory: Diminished, Rhonchi Cardiovascular: Normal : Normal Auscultation: Bowel Sounds: Normal Palpation: Normal Tenderness: Normal Skin: Decreased Turgur Musculoskeletal: Right, Left, Motor Deficit Psychiatric: Anxiety Affect: Anxious Speech Pattern: Aphasic - Laboratory and Diagnostics Result Diagrams: 05/15/18 05:36 05/15/18 05:36 Labs: 05/12/18 02:17 Blood Blood Culture - Preliminary 05/12/18 02:10 Blood Blood Culture - Preliminary 05/12/18 04:00 Peg Tube Gram Stain - Final 05/12/18 04:00 Peg Tube Wound Culture - Final Proteus Mirabilis 05/12/18 01:40 Urine,Clean Catch Urine Culture - Final 05/12/18 02:25 Sputum - Endotracheal Wash Sputum Culture - Final Proteus Mirabilis 05/12/18 02:25 Sputum - Endotracheal Wash - Final Laboratory WBC 9.6 X10^3/uL (3.6-10.0) 05/15/18 05:36 RBC 4.06 X10^6/uL (4.7-6.0) L 05/15/18 05:36 Hgb 12.1 g/dL (13.5-18.0) L 05/15/18 05:36 Hct 35.8 % (42.0-54.0) L 05/15/18 05:36 MCV 88.1 fL (80.0-100.0) 05/15/18 05:36 MCH 29.9 pg (27.0-34.0) 05/15/18 05:36 MCHC 33.9 g/dL (33.0-35.0) 05/15/18 05:36 RDW 14.6 % (11.6-16.5) 05/15/18 05:36 Plt Count 228 X10^3/uL (150.0-450.0) 05/15/18 05:36 MPV 8.3 fL (7.4-11.0) 05/15/18 05:36 Neut % (Auto) 77.3 % (42.0-75.0) H 05/15/18 05:36 Lymph % (Auto) 14.1 % (21.0-51.0) L 05/15/18 05:36 [place] % (Auto) 7.2 % (0.0-13.0) 05/15/18 05:36 Eos % (Auto) 0.9 % (0.9-2.9) 05/15/18 05:36 Baso % (Auto) 0.5 % (0.2-1.0) 05/15/18 05:36 Neut # (Auto) 7.4 x10^3/uL (2.2-4.8) H 05/15/18 05:36 Lymph # (Auto) 1.4 X10^3/uL (1.3-2.9) 05/15/18 05:36 [place] # (Auto) 0.7 x10^3/uL (0.3-0.8) 05/15/18 05:36 Eos # (Auto) 0.1 x10^3/uL (0.0-0.2) 05/15/18 05:36 Baso # (Auto) 0.1 X10^3/uL (0.0-0.1) 05/15/18 05:36 Absolute Nucleated RBC 0.1 /100WBC 05/15/18 05:36 INR Target Range - 05/12/18 01:12 INR 1.25 (0.8-1.3) 05/12/18 01:12 APTT 39.7 SECONDS (22.9-36.5) H 05/12/18 01:12 PTT Comment - 05/12/18 01:12 Sample Site Lr 05/13/18 04:55 ABG pH 7.420 (7.35-7.45) 05/13/18 04:55 ABG pCO2 46.0 mmHg (35.0-45.0) H 05/13/18 04:55 ABG pO2 74.0 mmHg (80.0-100.0) L 05/13/18 04:55 ABG HCO3 29.8 mmol/L (22-26) H 05/13/18 04:55 ABG O2 Saturation 95.0 % (90-100) 05/13/18 04:55 ABG Base Excess 4.6 mmol/L (-2.0-2.0) H 05/13/18 04:55 Jeremie Test Pos 05/13/18 04:55 A-a Gradient 97.0 mmHg 05/13/18 04:55 FiO2 32.0 05/13/18 04:55 Blood Gas Comments Carmella well ae 05/13/18 04:55 Sodium 141 mmol/L (136-145) 05/15/18 05:36 Corrected Sodium TNP 05/15/18 05:36 Potassium 3.8 mmol/L (3.5-5.1) 05/15/18 05:36 Chloride 104 mmol/L (98-107) 05/15/18 05:36 Carbon Dioxide 28.3 mmol/L (21-32) 05/15/18 05:36 BUN 14 mg/dL (7-18) 05/15/18 05:36 Creatinine 1.01 mg/dL (0.70-1.30) 05/15/18 05:36 Est GFR (MDRD) Af Amer > 60 (>60) 05/15/18 05:36 Est GFR (MDRD) Non-Af > 60 (>60) 05/15/18 05:36 Glucose 88 mg/dL (65-99) 05/15/18 05:36 POC Glucose (mg/dL) 103 mg/dL (65-99) H 05/15/18 16:52 Calcium 9.2 mg/dL (8.5-10.1) 05/15/18 05:36 Corrected Calcium 10.5 mg/dL (8.5-10.1) H 05/15/18 05:36 Total Bilirubin 0.40 mg/dL (0.2-1.0) 05/15/18 05:36 AST 24 Units/L (15-37) 05/15/18 05:36 ALT 21 Units/L (12-78) 05/15/18 05:36 Alkaline Phosphatase 59 Units/L (46-116) 05/15/18 05:36 Creatine Kinase 191 Units/L (39-308) 05/12/18 01:12 CK-MB (CK-2) 1.6 ng/mL (0-4.0) 05/12/18 01:12 CK/CKMB % Calc 0.8 % (<4) 05/12/18 01:12 Troponin I < 0.02 ng/mL (0-1.5) 05/12/18 01:12 B-Natriuretic Peptide 81.3 pg/mL (0-79) H 05/12/18 01:12 Total Protein 7.2 g/dL (6.4-8.2) 05/15/18 05:36 Albumin 2.4 g/dL (3.4-5.0) L 05/15/18 05:36 Globulin 4.8 g/dL (2.5-4.5) H 05/15/18 05:36 Albumin/Globulin Ratio 0.5 Ratio (1.1-2.1) L 05/15/18 05:36 Specimen Type Random urine 05/12/18 03:12 Urine Color Yellow (YELLOW) 05/12/18 03:12 Urine Appearance Clear (CLEAR) 05/12/18 03:12 Urine pH 7.0 (5.0 - 8.0) 05/12/18 03:12 Ur Specific [place] 1.015 (1.000-1.030) 05/12/18 03:12 Urine Protein 2+ (NEGATIVE) 05/12/18 03:12 Urine Glucose (UA) Negative (NEGATIVE) 05/12/18 03:12 Urine Ketones Negative (NEGATIVE) 05/12/18 03:12 Urine Occult Blood 3+ (NEGATIVE) 05/12/18 03:12 Urine Nitrite Negative (NEGATIVE) 05/12/18 03:12 Urine Bilirubin Negative (NEGATIVE) 05/12/18 03:12 Urine Urobilinogen 2+ (NORMAL) 05/12/18 03:12 Ur Leukocyte Esterase 1+ (NEGATIVE) 05/12/18 03:12 Urine RBC 20-30 /HPF (NONE SEEN) 05/12/18 03:12 Urine WBC 5-10 /HPF (NONE SEEN) 05/12/18 03:12 Ur Squamous Epith Cells Few /HPF (NEGATIVE) 05/12/18 03:12 Urine Bacteria 1+ /HPF (NEGATIVE) 05/12/18 03:12 Urine Mucus Few /HPF (NEGATIVE) 05/12/18 03:12 Ur Culture Indicated? Yes/culture set up 05/12/18 03:12 - Plan (1) Aspiration pneumonia Status: Acute Qualifiers: Aspiration pneumonia type: due to gastric secretions Laterality: unspecified laterality Lung location: unspecified part of lung Qualified Code(s): J69.0 - Pneumonitis due to inhalation of food and vomit Plan: INVANZ 1GM IV DAILY, RESPIRATORY TX, SUPPLEMENTAL OXYGEN, CONTINUE TO MONITOR
[2018-05-15] MEDS: ARICEPT TAB 10 MG GT SCH (21:40)
[2018-05-16] MEDS: VALPROIC ACID GT SCH ×2 (05:32→14:16)
[2018-05-16] MEDS: ASTELIN NASAL SPRAY ENOSTRIL SCH ×2 (05:32→14:16)
[2018-05-16] MEDS: NS 1/2 1000 ML IV 1,000 ML IV SCH ×2 (05:39→09:35)
[2018-05-16 06:20] LABS: BASOPHILS % (AUTO) 0.6 % (0.2-1.0); EOSINOPHILS # (AUTO) 0.2 x10^3/uL (0.0-0.2); EOSINOPHILS % (AUTO) 3.1 % (0.9-2.9); HEMATOCRIT 32.4 % (42.0-54.0); LYMPHOCYTES # (AUTO) 1.6 X10^3/uL (1.3-2.9); LYMPHOCYTES % (AUTO) 22.2 % (21.0-51.0); MEAN CORPUSCULAR HEMOGLOBIN 29.9 pg (27.0-34.0); MEAN CORPUSCULAR HGB CONC 33.9 g/dL (33.0-35.0); MEAN CORPUSCULAR VOLUME 88.1 fL (80.0-100.0); MEAN PLATELET VOLUME 7.6 fL (7.4-11.0); MONOCYTES # (AUTO) 0.6 x10^3/uL (0.3-0.8); NEUTROPHILS # (AUTO) 4.7 x10^3/uL (2.2-4.8); NEUTROPHILS % (AUTO) 66.1 % (42.0-75.0); PLATELET COUNT 229 X10^3/uL (150.0-450.0); RED BLOOD COUNT 3.68 X10^6/uL (4.7-6.0); RED CELL DISTRIBUTION WIDTH 14.4 % (11.6-16.5)
[2018-05-16 06:39] LABS: ALANINE AMINOTRANSFERASE 20 Units/L (12-78); ALBUMIN 2.3 g/dL (3.4-5.0); ALKALINE PHOSPHATASE 53 Units/L (46-116); ASPARTATE AMINO TRANSFERASE 18 Units/L (15-37); BLOOD UREA NITROGEN 12 mg/dL (7-18); CALCIUM 9.1 mg/dL (8.5-10.1); CARBON DIOXIDE 28.9 mmol/L (21-32); CHLORIDE 106 mmol/L (98-107); COR CA(FOR HYPOALB) 10.5 mg/dL (8.5-10.1); CREATININE 0.97 mg/dL (0.70-1.30); SODIUM 141 mmol/L (136-145); TOTAL PROTEIN 6.8 g/dL (6.4-8.2); eGFR NON BLACK RACES > 60 (>60)
--- NOTE | 2018-05-16 07:15 | RAD ---
HISTORY: Follow-up pneumonia Study: Chest AP portable Comparison: 05/15/2018 Findings: The heart is within normal limits in size. No congestive heart failure is noted. The lungs are free of acute alveolar infiltrates. Mild interstitial lung changes are present most prominent in the right lung base and unchanged from the prior examination. There is a focus of subsegmental atelectasis in the left lung base. No pleural effusions are identified. The bony thorax is unremarkable. IMPRESSION: No significant change from the prior examination Reported By:
[2018-05-16] MEDS: PULMICORT NEB TX 0.5 MG NEB SCH (08:50)
[2018-05-16] MEDS: DUONEB 0.5 MG/3 MG IN SCH (08:50)
[2018-05-16] MEDS: SINGULAIR TAB 10 MG GT SCH (09:32)
[2018-05-16] MEDS: EFFEXOR XR 75 MG CAP PO SCH (09:32)
[2018-05-16] MEDS: XANAX GT SCH (09:32)
[2018-05-16] MEDS: ELIQUIS NG SCH (09:32)
[2018-05-16] MEDS: MILK OF MAGNESIA PO SCH (09:33)
[2018-05-16] MEDS: COLACE SYRUP 100 MG UDC GT SCH (09:33)
[2018-05-16] MEDS: NAMENDA TAB 10 MG GT SCH (09:33)
[2018-05-16] MEDS: ROBITUSSIN DM PO SCH ×2 (09:33→12:48)
[2018-05-16] MEDS: LASIX GT SCH (09:33)
[2018-05-16] MEDS: GEODON PO SCH (09:33)
[2018-05-16] MEDS: LOPRESSOR TAB 25 MG GT SCH (09:33)
[2018-05-16] MEDS: THIORIDAZINE 50 MG GT SCH (09:34)
[2018-05-16] MEDS: FLONASE NASAL SPRAY ENOSTRIL SCH (09:35)
[2018-05-16] MEDS: INVANZ INJ 1 GM VIAL 1 GM in NS 100 ML IV + SPIKE MINIBAG* 100 ML IV SCH (09:35)
[2018-05-16] MEDS ORDERED: DULCOLAX SUPPOSITORY 10 MG RECTAL ONE (11:38)
[2018-05-16 12:48] VITALS: BP 108/55
== END 2018-05-16 14:25 | DRG 179 ==
LOC: ER 00:54 → MED/SURG 02:55
PROVIDERS: ADMIT Internal Medicine; ATTEND Internal Medicine
DX: Z93.1 Gastrostomy status; B96.4 Proteus (mirabilis) (morganii) as the cause of diseases classified elsewhere; G30.9 Alzheimer's disease, unspecified; I10 Essential (primary) hypertension; R06.02 Shortness of breath; R13.11 Dysphagia, oral phase; F41.8 Other specified anxiety disorders; J44.9 Chronic obstructive pulmonary disease, unspecified; K21.9 Gastro-esophageal reflux disease without esophagitis; Z86.73 Personal history of transient ischemic attack (TIA), and cerebral infarction without residual deficits; J69.0 Pneumonitis due to inhalation of food and vomit; F02.80 Dementia in other diseases classified elsewhere, unspecified severity, without behavioral disturbance, psychotic disturbance, mood disturbance, and anxiety
CPT/HCPCS: 36415; 36600; 51702; 71010; 71045; 80053; 81001; 82550; 82553; 82803; 83880; 84484; 85025; 85610; 85730; 87040; 87070; 87075; 87077; 87086; 87186; 87205; 93005; 94640; 94760; 96365; 96374; 96375; 97162; 97166; 99284; A4222; J0696; J1335; J1956; J2543; J3490; J7050; J7620; J7626

== ENCOUNTER 2018-06-04 10:35 | Observation (INO) ==
--- NOTE | 2018-06-04 11:12 | DR.WEAKNES ---
HPI Time Seen Time Seen by Provider: 06/04/18 11:04 Complaints Chief Complaint Doctors Comments: [facility] sent from [facility] with complain of possible stroke. He has a history of right sided weakness and now he is not using the left side well. This was noticed this AM, not time give. Chief Complaint:: MYESHA STAFF STATES PT HAS NOT BEEN ACTING RIGHT THIS MORNING. STAFF STATES PT HAS A HISTORY OF CVA WITH RT SIDED PARALYSIS AND NOW HE IS HAVING WEAKNESS TO LT SIDE OF BODY. NOTED FACIAL DROOPING TO LT SIDE. PT DOES NOT OPEN EYES TO VERBAL STIMULI, BUT WHEN ASKED TO SQUEEZE WITH HIS LT HAND PT SQUEEZED SLIGHTLY. Source History Provided: [facility] Mode of Arrival Mode of Arrival: Stretcher Timing Onset of Chief Complaint: 06/04/18 Symptom Onset: Known Context Stroke Symptoms: None PMH PMH Past Medical History: Yes Past Medical History: Anxiety, COPD, CVA, Dementia, Depression, Diabetes, Dyslipidemia, GERD, Hypertension and Schizophrenia Past Surgical History: Yes Surgical History: Cholecystectomy and Other Family History History of Family Medical Conditions: Yes Family Medical History: Cancer Social History Does any household member use tobacco: No Alcohol Use: None Do you use any recreational Drugs:: No Lives With: Other Lives Where: [facility] infectious screening In the last 2 months have you had wt loss of >10#?: NO Have you had fever, night sweats or hemotysis?: No Have you traveled outside the country in the last 6 months?: No Isolation: Standard ROS Review of Systems Constitutional: No Symptoms Reported Eyes: Other (dilated right, not able to open left eye) Respiratoy: No Symptoms Reported Cardiovascular: No Symptoms Reported Gastrointestinal/Abdominal: No Symptoms Reported Neurological: No Symptoms Reported Musculoskeletal: No Symptoms Reported and See HPI Integumentary: No Symptoms Reported Hematologic/Lymphatic: No Symptoms Reported Endocrine: No Symptoms Reported Unable to Obtain Due To: Altered mental status PE Vital Signs Vitals: Pulse Rate [Apical] 55 Pulse Rate 62 Respiratory Rate 22 Blood Pressure [Left Arm] 101/68 Blood Pressure [Right Arm] 107/55 Blood Pressure 101/64 O2 Sat by Pulse Oximetry 95 General Limitations: Altered Mental Status General Appearance: In No Apparent Distress and Obtunded Head Head Exam: Normal Inspection, Atraumatic and Normocephalic Head Exam Physical: negative Laceration Eyes Eye exam: Normal Appearance, Nystagmus and Mydrasis (right); negative PERRL Eyelids: Normal Inspection: Bilateral Pupils: Regular, Round: Right Sclera/Conjunctival: Normal Inspection: Bilateral ENT ENT Exam: Normal Exam, Normal Oropharynx and Normal External Ear Exam Mouth Exam: Normal Inspection Throat Exam: Normal Inspection Neck Neck Exam: Normal Inspection and Full ROM Respiratory Respiratory Exam: Normal Lung Sounds Bilat Respiratory Exam: Bilateral: Clear to Auscultation Cardiovascular Cardiovascular Exam: Regular Rate and Normal Rhythm Abdominal Exam Abdominal Exam: Normal Inspection and Normal Bowel Sounds Extremities Extremities Exam: Normal Inspection and Full ROM Back Back Exam: Normal Inspection Neurologic Neurological Exam: Alert and Oriented X3 Speech: Total Aphasia Motor Strength - LUE: 02/24 Motor Strength - RUE: 02/24 Motor Strength - LLE: 02/24 Psychiatric Psychiatric Exam: Flat Affect Skin Skin Exam: Warm and Dry MDM Additional Information Obtained Additional Information Obtained From: Old Records Differential Diagnosis Differential Diagnosis: CVA, Electrolyte Disorder and Hypoglycemia COURSE Treatment Treatment: Patient was referred to Radiology for r/o CVA Consultation Called: 13:10 Consultation Comments: Dr. Darling agreed to admit for further evaluation ROR Labs Reviewed Laboratory Results Reviewed?: Yes Result Diagrams: 06/04/18 11:00 06/04/18 11:00 Laboratory: WBC 8.0 X10^3/uL (3.6-10.0) 06/04/18 11:00 RBC 4.12 X10^6/uL (4.7-6.0) L 06/04/18 11:00 Hgb 12.1 g/dL (13.5-18.0) L 06/04/18 11:00 Hct 36.5 % (42.0-54.0) L 06/04/18 11:00 MCV 88.7 fL (80.0-100.0) 06/04/18 11:00 MCH 29.4 pg (27.0-34.0) 06/04/18 11:00 MCHC 33.2 g/dL (33.0-35.0) 06/04/18 11:00 RDW 14.4 % (11.6-16.5) 06/04/18 11:00 Plt Count 167 X10^3/uL (150.0-450.0) 06/04/18 11:00 MPV 9.0 fL (7.4-11.0) 06/04/18 11:00 Neut % (Auto) 65.6 % (42.0-75.0) 06/04/18 11:00 Lymph % (Auto) 19.1 % (21.0-51.0) L 06/04/18 11:00 [place] % (Auto) 10.9 % (0.0-13.0) 06/04/18 11:00 Eos % (Auto) 3.4 % (0.9-2.9) H 06/04/18 11:00 Baso % (Auto) 1.0 % (0.2-1.0) 06/04/18 11:00 Neut # (Auto) 5.3 x10^3/uL (2.2-4.8) H 06/04/18 11:00 Lymph # (Auto) 1.5 X10^3/uL (1.3-2.9) 06/04/18 11:00 [place] # (Auto) 0.9 x10^3/uL (0.3-0.8) H 06/04/18 11:00 Eos # (Auto) 0.3 x10^3/uL (0.0-0.2) H 06/04/18 11:00 Baso # (Auto) 0.1 X10^3/uL (0.0-0.1) 06/04/18 11:00 Absolute Nucleated RBC 0.1 /100WBC 06/04/18 11:00 INR Target Range - 06/04/18 11:00 INR 1.24 (0.8-1.3) 06/04/18 11:00 APTT 38.2 SECONDS (22.9-36.5) H 06/04/18 11:00 PTT Comment - 06/04/18 11:00 Fibrinogen 512 mg/dL (239-489) H 06/04/18 11:00 Sodium 136 mmol/L (136-145) 06/04/18 11:00 Corrected Sodium 136 mmol/L (136-145) 06/04/18 11:00 Potassium 4.0 mmol/L (3.5-5.1) 06/04/18 11:00 Chloride 100 mmol/L (98-107) 06/04/18 11:00 Carbon Dioxide 29.8 mmol/L (21-32) 06/04/18 11:00 BUN 20 mg/dL (7-18) H 06/04/18 11:00 Creatinine 1.17 mg/dL (0.70-1.30) 06/04/18 11:00 Est GFR (MDRD) Af Amer > 60 (>60) 06/04/18 11:00 Est GFR (MDRD) Non-Af > 60 (>60) 06/04/18 11:00 Glucose 111 mg/dL (65-99) H 06/04/18 11:00 POC Glucose (mg/dL) 79 mg/dL (65-99) 06/04/18 16:33 Calcium 9.3 mg/dL (8.5-10.1) 06/04/18 11:00 Corrected Calcium 10.2 mg/dL (8.5-10.1) H 06/04/18 11:00 Total Bilirubin 0.60 mg/dL (0.2-1.0) 06/04/18 11:00 AST 21 Units/L (15-37) 06/04/18 11:00 ALT 21 Units/L (12-78) 06/04/18 11:00 Alkaline Phosphatase 61 Units/L (46-116) 06/04/18 11:00 Creatine Kinase 82 Units/L (39-308) 06/04/18 11:00 CK-MB (CK-2) 1.1 ng/mL (0-4.0) 06/04/18 11:00 CK/CKMB % Calc 1.3 % (<4) 06/04/18 11:00 Troponin I < 0.02 ng/mL (0-1.5) 06/04/18 11:00 Total Protein 7.4 g/dL (6.4-8.2) 06/04/18 11:00 Albumin 2.9 g/dL (3.4-5.0) L 06/04/18 11:00 Globulin 4.5 g/dL (2.5-4.5) 06/04/18 11:00 Albumin/Globulin Ratio 0.6 Ratio (1.1-2.1) L 06/04/18 11:00 Triglycerides 61 mg/dL (0-150) 06/04/18 11:00 Cholesterol 71 mg/dL (0-200) 06/04/18 11:00 LDL Cholesterol, Calc 18 mg/dL (0-100) 06/04/18 11:00 HDL Cholesterol 41 mg/dL (40-60) 06/04/18 11:00 Cholesterol/HDL Ratio 1.7 (0.0-5.0) 06/04/18 11:00 Specimen Type Catherized urine 06/04/18 15:09 Urine Color Yellow (YELLOW) 06/04/18 15:09 Urine Appearance Clear (CLEAR) 06/04/18 15:09 Urine pH 8.0 (5.0 - 8.0) 06/04/18 15:09 Ur Specific [place] 1.015 (1.000-1.030) 06/04/18 15:09 Urine Protein Negative (NEGATIVE) 06/04/18 15:09 Urine Glucose (UA) Negative (NEGATIVE) 06/04/18 15:09 Urine Ketones Negative (NEGATIVE) 06/04/18 15:09 Urine Occult Blood Negative (NEGATIVE) 06/04/18 15:09 Urine Nitrite Negative (NEGATIVE) 06/04/18 15:09 Urine Bilirubin Negative (NEGATIVE) 06/04/18 15:09 Urine Urobilinogen Normal (NORMAL) 06/04/18 15:09 Ur Leukocyte Esterase Negative (NEGATIVE) 06/04/18 15:09 Other Results Comments: CT Brain w/o: Comparison 03/08/17: Chronic appearing encephalomalacia of the Left MCA territory consistent with prior CVA is observed. However; no acute intracranial process can be identified. MRI is r ecommended for acute on chronic changes if focal neurological symptoms are observed and persist. Chronic periventricular white matter disease likely on the basis of small vessel ischemic change. Age-appropriate atrophic changes are seen. MRI: comparison 06/04/18: No acute ischemic or hemorrhage insult. Multifocal large left MCA distribution infarctions with surrounding gliosis and encephalomalicia as described. Fluid throughout the right mastoid air cells with scattered fluid left mastoid air cells, correlate clinically. Chest: No acute cardiopulmonary abnarmality XRAY XRAY Interpreted by: Radiologist ADDITIONAL NOTES Additional Notes Additional Notes: negative CVA of brain
[2018-06-04 11:14] LABS: BASOPHILS # (AUTO) 0.1 X10^3/uL (0.0-0.1); EOSINOPHILS # (AUTO) 0.3 x10^3/uL (0.0-0.2); EOSINOPHILS % (AUTO) 3.4 % (0.9-2.9); HEMATOCRIT 36.5 % (42.0-54.0); HEMOGLOBIN 12.1 g/dL (13.5-18.0); LYMPHOCYTES # (AUTO) 1.5 X10^3/uL (1.3-2.9); LYMPHOCYTES % (AUTO) 19.1 % (21.0-51.0); MEAN CORPUSCULAR HEMOGLOBIN 29.4 pg (27.0-34.0); MEAN CORPUSCULAR HGB CONC 33.2 g/dL (33.0-35.0); MEAN CORPUSCULAR VOLUME 88.7 fL (80.0-100.0); MONOCYTES # (AUTO) 0.9 x10^3/uL (0.3-0.8); MONOCYTES % (AUTO) 10.9 % (0.0-13.0); NEUTROPHILS # (AUTO) 5.3 x10^3/uL (2.2-4.8); NEUTROPHILS % (AUTO) 65.6 % (42.0-75.0); PLATELET COUNT 167 X10^3/uL (150.0-450.0); RED BLOOD COUNT 4.12 X10^6/uL (4.7-6.0); RED CELL DISTRIBUTION WIDTH 14.4 % (11.6-16.5)
--- NOTE | 2018-06-04 11:18 | CT ---
HISTORY: Unresponsive Study: CT brain without contrast Comparison: 03/08/2017 Technique: Multiple axial images of the brain were obtained from the skull base to the vertex without administration of IV contrast. Findings: No acute intraparenchymal hemorrhage or mass can be identified. No extra-axial fluid collections are seen. Chronic appearing encephalomalacia within this fusion of the left MCA territory is observed and stable compared to prior examinations. However, no alteration in the attenuation of the brain parenchyma can be identified to suggest acute or subacute ischemic change. The ventricular system is symmetric and nondilated. There is chronic periventricular white matter disease observed and age-appropriate generalized atrophy. IMPRESSION: 1. Chronic appearing encephalomalacia of the left MCA territory consistent with prior CVA is observed. However, no acute intracranial process can be identified. MRI is recommended for acute on chronic changes if focal neurological symptoms are observed and persist. 2. Chronic periventricular white matter disease likely on the basis of small vessel ischemic change. 3. Age-appropriate atrophic changes are seen. Reported By:
[2018-06-04 11:47] LABS: BLOOD UREA NITROGEN 20 mg/dL (7-18); CALCIUM 9.3 mg/dL (8.5-10.1); CARBON DIOXIDE 29.8 mmol/L (21-32); CHLORIDE 100 mmol/L (98-107); COR NA(FOR HYPERGLY) 136 mmol/L (136-145); CREATININE 1.17 mg/dL (0.70-1.30); SODIUM 136 mmol/L (136-145); TROPONIN I < 0.02 ng/mL (0-1.5); eGFR NON BLACK RACES > 60 (>60)
[2018-06-04 11:48] LABS: ALANINE AMINOTRANSFERASE 21 Units/L (12-78); ALBUMIN 2.9 g/dL (3.4-5.0); ALKALINE PHOSPHATASE 61 Units/L (46-116); ASPARTATE AMINO TRANSFERASE 21 Units/L (15-37); CHOL/HDL RATIO 1.7 (0.0-5.0); CHOLESTEROL 71 mg/dL (0-200); CKMB % 1.3 % (<4); COR CA(FOR HYPOALB) 10.2 mg/dL (8.5-10.1); CREATINE KINASE 82 Units/L (39-308); CREATINE KINASE MB 1.1 ng/mL (0-4.0); HDL CHOLESTEROL 41 mg/dL (40-60); TOTAL PROTEIN 7.4 g/dL (6.4-8.2); TRIGLYCERIDES 61 mg/dL (0-150)
--- NOTE | 2018-06-04 12:49 | MRI ---
MRI BRAIN WITHOUT CONTRAST CLINICAL HISTORY: 73-year-old male with possible stroke. COMPARISON: CT head this date and 03/08/2017. TECHNIQUE: Multiplanar, multisequence MR images of the brain were obtained without contrast. FINDINGS: There is no evidence of diffusion restriction. The craniocervical junction is normal. Pituitary and optic nerve complex are normal. Few punctate T2 FLAIR signal hyperintensities are present within the periventricular and supraventricular white matter that are nonspecific in appearance but most likely to represent microvascular white matter ischemic changes. Multifocal large left MCA distribution chronic infarctions with large volume encephalomalacia and surrounding gliosis with mild ex vacuo dilatation of the left lateral ventricular system. Normal signal characteristics and morphology are demonstrated within the corpus callosum, deep gage nuclei, brainstem and cerebellum. The major vascular flow voids, to include the dural venous sinuses, are intact. No abnormal susceptibility on gradient imaging. Age advanced cortical volume loss is present, with commensurate sulcal and ventricular prominence. The basilar cisterns are normal. The orbits and globes are within normal limits. Paranasal sinuses and tympanic cavities are clear. Fluid throughout the right mastoid air cells with scattered fluid left mastoid air cells. IMPRESSION: 1. No acute ischemic or hemorrhagic insult. 2. Multifocal large left MCA distribution infarctions with surrounding gliosis and encephalomalacia as described. 3. Fluid throughout the right mastoid air cells with scattered fluid left mastoid air cells, correlate clinically. Reported By:
--- NOTE | 2018-06-04 13:40 | RAD ---
History: Unresponsive Study: AP chest Comparison: May 16 Findings: The heart size is normal. The lungs are grossly clear. There is no edema or effusion. No significant bony abnormality is demonstrated. Impression: No acute cardiopulmonary disease Reported By:
[2018-06-04 15:38] LABS: BILIRUBIN,URINE NEGATIVE (NEGATIVE); BLOOD/HEMOGLOBIN,URINE NEGATIVE (NEGATIVE); GLUCOSE, URINE NEGATIVE (NEGATIVE); KETONES,URINE NEGATIVE (NEGATIVE); LEUKOCYTE ESTERASE ,URINE NEGATIVE (NEGATIVE); NITRITES,URINE NEGATIVE (NEGATIVE); PROTEIN,URINE NEGATIVE (NEGATIVE); UROBILINOGEN,URINE NORMAL (NORMAL)
[2018-06-04 15:45] LABS: APPEARANCE,URINE CLEAR (CLEAR); COLOR,URINE YELLOW (YELLOW)
[2018-06-04] MEDS: NS 1000 ML 1,000 ML IV SCH (16:46)
[2018-06-04] MEDS ORDERED: TUSSIONEX PENNKINETIC SUSP PO PRN (19:34)
[2018-06-04] MEDS ORDERED: ASTELIN NASAL SPRAY ONE (20:31)
[2018-06-04] MEDS: PULMICORT NEB TX 0.5 MG NEB SCH (20:34)
[2018-06-04] MEDS: DUONEB 0.5 MG/3 MG NEB SCH ×2 (20:34→21:05)
[2018-06-04] MEDS ORDERED: PATIENT'S HOME MEDICATION (Budesonide-Formoterol 2 PUFF) IN SCH (21:00)
[2018-06-04] MEDS: ELIQUIS NG SCH (21:30)
[2018-06-04] MEDS: XANAX PO SCH (21:30)
[2018-06-04] MEDS: GEODON PO SCH (21:30)
[2018-06-04] MEDS: ASTELIN NASAL SPRAY ENOSTRIL SCH (21:30)
[2018-06-04] MEDS: LOPRESSOR TAB 25 MG PEG SCH (21:30)
[2018-06-04] MEDS: NAMENDA TAB 10 MG PEG SCH (21:30)
[2018-06-04] MEDS: LASIX PEG SCH (21:30)
[2018-06-04] MEDS: ARICEPT TAB 10 MG PEG SCH (21:30)
[2018-06-04] MEDS: ZANTAC PO SCH (21:30)
[2018-06-04 21:41] VITALS: BMI 25.2
[2018-06-04] MEDS ORDERED: DUONEB 0.5 MG/3 MG NEB SCH (22:00)
[2018-06-04] MEDS: VALPROIC ACID Feeding Tube SCH (23:31)
[2018-06-05] MEDS: DUONEB 0.5 MG/3 MG NEB SCH ×3 (05:02→21:05)
[2018-06-05 05:16] LABS: BASOPHILS % (AUTO) 0.2 % (0.2-1.0); EOSINOPHILS # (AUTO) 0.2 x10^3/uL (0.0-0.2); EOSINOPHILS % (AUTO) 3.5 % (0.9-2.9); HEMATOCRIT 34.9 % (42.0-54.0); LYMPHOCYTES # (AUTO) 1.7 X10^3/uL (1.3-2.9); LYMPHOCYTES % (AUTO) 27.5 % (21.0-51.0); MEAN CORPUSCULAR HEMOGLOBIN 30.3 pg (27.0-34.0); MEAN CORPUSCULAR HGB CONC 34.3 g/dL (33.0-35.0); MEAN CORPUSCULAR VOLUME 88.4 fL (80.0-100.0); MEAN PLATELET VOLUME 9.1 fL (7.4-11.0); MONOCYTES # (AUTO) 0.6 x10^3/uL (0.3-0.8); MONOCYTES % (AUTO) 9.8 % (0.0-13.0); NEUTROPHILS # (AUTO) 3.6 x10^3/uL (2.2-4.8); PLATELET COUNT 172 X10^3/uL (150.0-450.0); RED BLOOD COUNT 3.95 X10^6/uL (4.7-6.0); RED CELL DISTRIBUTION WIDTH 14.6 % (11.6-16.5); WHITE BLOOD COUNT 6.1 X10^3/uL (3.6-10.0)
[2018-06-05 05:26] LABS: ALANINE AMINOTRANSFERASE 18 Units/L (12-78); ALBUMIN 2.7 g/dL (3.4-5.0); ALKALINE PHOSPHATASE 57 Units/L (46-116); ASPARTATE AMINO TRANSFERASE 14 Units/L (15-37); BLOOD UREA NITROGEN 16 mg/dL (7-18); CALCIUM 9.2 mg/dL (8.5-10.1); CARBON DIOXIDE 29.6 mmol/L (21-32); CHLORIDE 103 mmol/L (98-107); COR CA(FOR HYPOALB) 10.2 mg/dL (8.5-10.1); CREATININE 1.05 mg/dL (0.70-1.30); SODIUM 138 mmol/L (136-145); eGFR NON BLACK RACES > 60 (>60)
[2018-06-05] MEDS: VALPROIC ACID Feeding Tube SCH ×3 (06:31→21:04)
[2018-06-05] MEDS: ASTELIN NASAL SPRAY ENOSTRIL SCH ×3 (06:31→21:04)
[2018-06-05] MEDS: XANAX PO SCH ×2 (08:42→20:33)
[2018-06-05] MEDS: COLACE SYRUP 100 MG UDC PEG SCH (08:43)
[2018-06-05] MEDS: EFFEXOR XR 75 MG CAP PO SCH (08:43)
[2018-06-05] MEDS: ELIQUIS NG SCH ×2 (08:43→20:50)
[2018-06-05] MEDS: LASIX PEG SCH ×2 (08:43→20:50)
[2018-06-05] MEDS: GEODON PO SCH ×2 (08:43→20:51)
[2018-06-05] MEDS: LOPRESSOR TAB 25 MG PEG SCH ×2 (08:43→20:50)
[2018-06-05] MEDS: SINGULAIR TAB 10 MG PEG SCH (08:44)
[2018-06-05] MEDS: THIORIDAZINE 50 MG Feeding Tube SCH (08:44)
[2018-06-05] MEDS: NAMENDA TAB 10 MG PEG SCH ×2 (08:44→21:04)
[2018-06-05] MEDS: ZANTAC PO SCH ×2 (08:45→20:50)
[2018-06-05] MEDS: PULMICORT NEB TX 0.5 MG NEB SCH ×2 (08:54→20:56)
--- NOTE | 2018-06-05 09:38 | DR.H&P ---
H&P - History & Physical for Day of: H&P Date: 06/04/18 - Chief Complaint Chief Complaint: AMS, WEAKNESS - History of Present Illness History of Present Illness: IS A 73 YEAR OLD PATIENT OF OURS WHO PRESENTED TO THE ER FROM [facility] WITH STAFF REPORTING ALTERED MENTAL STATUS AND LEFT SIDED WEAKNESS. PATIENT HAS A HISTORY OV CVA WITH RIGHT SIDED PARALYSIS. HE IS ALSO NOTED WITH DROOPING TO THE LEFT SIDE OF FACE. HE DOES NOT FOLLOW VERBAL COMMANDS. ON ARRIVAL, VITALS WERE 98.9-62-18-95%-101/64. LABS WERE OBTAINED. ABNORMAL LAB VALUES INCLUDE THE FOLLOWING: RBC 4.12, HGB 12.1, HCT 36.5, PTT 38.2, FIBRINOGEN 512, BUN 20, GLUCOSE 111, ALBUMIN 2.[address]IN[address] A BRAIN CT WAS OBTAINED AND REVEALED: Chronic appearing encephalomalacia of the left MCA territory consistent with prior CVA is observed. However, no acute intracranial process can be identified. MRI is recommended for acute on chronic changes if focal neurological symptoms are observed and persist.Chronic periventricular white matter disease likely on the basis of small vessel ischemic change. Age-appropriate atrophic changes are seen. A CHEST XRAY WAS OBTAINED AND REVEALED NO ACUTE CARDIOPULMONARY DISEASE. EKG REVEALED: SINUS RHYTHM WITH HR 59. HE WAS ADMITTED FOR FURTHER EVALUATION AND TREATMENT OF AMS R/O CVA. WE PLAN TO OBTAIN A BRAIN MRI. OTHERWISE, WE WILL FOLLOW UP WITH AM LABS AND CONTINUE TO MONITOR. - Past Medical History Past Medical History: Hypertension, Dyslipidemia, Diabetes, Schizophrenia, Dementia, Depression, Anxiety, CVA, COPD, GERD Additional Medical History: Prostate Cancer, Chronic Cholelithiasis - Past Surgical History Surgical History: Cholecystectomy, Other Additional Surgical History: Prostatectomy, Hiatal Hernia Repair, Left Knee - Family History Family Medical History: Cancer - Social History Does any household member use tobacco: No Alcohol Use: None Drug Use: None - Medications Home Medications: No Known Drug Allergies Allergy (Verified 01/15/18 16:52) - Review of Systems Constitutional: See HPI, Weakness Eyes: No Symptoms Reported ENT: No Symptoms Reported Respiratory: No Symptoms Reported Cardiovascular: No Symptoms Reported Gastrointestinal: No Symptoms Reported Genitourinary: No Symptoms Reported Musculoskeletal: No Symptoms Reported Skin: No Symptoms Reported Neurological: Weakness (LEFT SIDED WEAKNESS ) - Physical Exam Vital Signs: Temperature 97.4 F Pulse Rate [Apical] 60 Pulse Rate 74 Respiratory Rate 20 Blood Pressure [Left Arm] 100/59 Blood Pressure [Right Arm] 107/55 Blood Pressure 101/64 O2 Sat by Pulse Oximetry 96 Oriented: Unable to test Eyes: Normal Ear: Normal Nose: Normal Throat: Normal Respiratory: Diminished Throughout Cardiovascular: Normal. negative: S3, S4, Murmur, Edema : Normal Auscultation: Bowel Sounds: Normal Palpation: Normal Tenderness: Normal Skin: Normal Musculoskeletal: Motor Deficit Psychiatric: Normal Mood Description: Calm Affect: Normal Speech Pattern: Aphasic - Assessment/Plan (1) Altered mental status Qualifiers: Altered mental status type: transient alteration of awareness Qualified Code(s): R40.4 - Transient alteration of awareness Status: Acute (2) History of CVA (cerebrovascular accident) Status: Chronic - Allergies Allergies/Adverse Reactions: Allergies Allergy/AdvReac Type Severity Reaction Status Date / Time No Known Drug Allergies Allergy Verified 01/15/18 16:52
[2018-06-05] MEDS: NS 1000 ML 1,000 ML IV SCH (15:37)
[2018-06-05] MEDS: ARICEPT TAB 10 MG PEG SCH (20:49)
[2018-06-05] MEDS ORDERED: D50W ABBOJECT SYR ONE (20:59)
[2018-06-05] MEDS ORDERED: D50W ABBOJECT SYR IV ONE (20:59)
[2018-06-06] MEDS: DUONEB 0.5 MG/3 MG NEB SCH (05:15)
[2018-06-06 05:21] LABS: BASOPHILS % (AUTO) 0.4 % (0.2-1.0); EOSINOPHILS # (AUTO) 0.2 x10^3/uL (0.0-0.2); HEMATOCRIT 34.2 % (42.0-54.0); HEMOGLOBIN 11.5 g/dL (13.5-18.0); LYMPHOCYTES # (AUTO) 1.7 X10^3/uL (1.3-2.9); LYMPHOCYTES % (AUTO) 31.4 % (21.0-51.0); MEAN CORPUSCULAR HEMOGLOBIN 29.7 pg (27.0-34.0); MEAN CORPUSCULAR HGB CONC 33.5 g/dL (33.0-35.0); MEAN CORPUSCULAR VOLUME 88.6 fL (80.0-100.0); MEAN PLATELET VOLUME 9.3 fL (7.4-11.0); MONOCYTES # (AUTO) 0.4 x10^3/uL (0.3-0.8); MONOCYTES % (AUTO) 8.3 % (0.0-13.0); NEUTROPHILS # (AUTO) 3.1 x10^3/uL (2.2-4.8); NEUTROPHILS % (AUTO) 56.9 % (42.0-75.0); PLATELET COUNT 171 X10^3/uL (150.0-450.0); RED BLOOD COUNT 3.86 X10^6/uL (4.7-6.0); RED CELL DISTRIBUTION WIDTH 14.9 % (11.6-16.5); WHITE BLOOD COUNT 5.4 X10^3/uL (3.6-10.0)
[2018-06-06 05:36] LABS: ALANINE AMINOTRANSFERASE 18 Units/L (12-78); ALBUMIN 2.6 g/dL (3.4-5.0); ALKALINE PHOSPHATASE 56 Units/L (46-116); ASPARTATE AMINO TRANSFERASE 13 Units/L (15-37); BLOOD UREA NITROGEN 15 mg/dL (7-18); CARBON DIOXIDE 27.5 mmol/L (21-32); CHLORIDE 106 mmol/L (98-107); COR CA(FOR HYPOALB) 10.1 mg/dL (8.5-10.1); CREATININE 1.07 mg/dL (0.70-1.30); SODIUM 140 mmol/L (136-145); TOTAL PROTEIN 6.9 g/dL (6.4-8.2); eGFR NON BLACK RACES > 60 (>60)
[2018-06-06] MEDS: ASTELIN NASAL SPRAY ENOSTRIL SCH ×2 (05:39→13:28)
[2018-06-06] MEDS: VALPROIC ACID Feeding Tube SCH ×2 (06:07→13:35)
[2018-06-06] MEDS: XANAX PO SCH (06:46)
--- NOTE | 2018-06-06 08:11 | PCM.PROG ---
Progress Note - Progress Note for Day of Date of Exam: 06/05/18 - Subjective Subjective: WAS ADMITTED FOR ALTERED MENTAL STATUS, RULE OUT ACUTE CVA. TODAY, HE IS ALERT, LYING IN BED ON MORNING ROUNDS. HE CONTINUES WITH LEFT SIDED WEAKNESS. ON EXAMINATION, HEART IS REGULAR IN RATE AND RHYTHM. BILATERAL LUNGS ARE NOTED WITH DIMINISHED LUNG SOUNDS THROUGHOUT. ABDOMEN IS ROUND, SOFT, AND NON-TENDER WITH NORMAL BOWEL SOUNDS NOTED IN ALL QUADRANTS. HIS VITALS THIS MORNING ARE 97.4-60-20-97%-100/59. LABS WERE OBTAINED. ABNORMAL LAB VALUES INCLUDE THE FOLLOWING: RBC 3.95, HGB 12.0, HCT 34.9, AST 14, ALBUMIN 2.7. A BRAIN MRI WAS OBTAINED YESTERDAY AND REVALED: No acute ischemic or hemorrhagic insult. Multifocal large left MCA distribution infarctions with surrounding gli osis and encephalomalacia as described. Fluid throughout the right mastoid air cells with scattered fluid left mastoid air cells, correlate clinically. TODAY, WE WILL CONTINUE WITH IV FLUIDS AND CURRENT PLAN OF CARE. OTHERWISE, WE WILL FOLLOW UP WITH AM LABS AND CONTINUE TO MONITOR. - Past Medical Family Social History Past Med/Fam/Surg Hx: No changes since H&P Allergies: Allergies No Known Drug Allergies Allergy (Verified 01/15/18 16:52) - Review of Systems ROS: No change since H&P - Vital Signs and I&O's Vital Signs: Temperature 97.6 F Pulse Rate [Apical] 52 Pulse Rate 52 Respiratory Rate 18 Blood Pressure [Left Arm] 104/59 Blood Pressure [Right Arm] 107/55 Blood Pressure 101/64 O2 Sat by Pulse Oximetry 95 Intake and Output: Intake & Output 06/03/18 06/04/18 06/05/18 06/06/18 11:59 11:59 11:59 11:59 Intake Total 240 / 240 2492 / 2492 Balance 240 / 240 2492 / 2492 - Physical Exam Oriented: Person Eyes: Normal Ear: Normal Nose: Normal Throat: Normal Cardiovascular: Normal. negative: S3, S4, Murmur, Edema : Normal Auscultation: Bowel Sounds: Normal Palpation: Normal Tenderness: Normal Skin: Normal Musculoskeletal: Motor Deficit Psychiatric: Normal Mood Description: Calm Affect: Normal Speech Pattern: Aphasic - Laboratory and Diagnostics Result Diagrams: 06/06/18 04:20 06/06/18 04:20 Labs: Laboratory WBC 5.4 X10^3/uL (3.6-10.0) 06/06/18 04:20 RBC 3.86 X10^6/uL (4.7-6.0) L 06/06/18 04:20 Hgb 11.5 g/dL (13.5-18.0) L 06/06/18 04:20 Hct 34.2 % (42.0-54.0) L 06/06/18 04:20 MCV 88.6 fL (80.0-100.0) 06/06/18 04:20 MCH 29.7 pg (27.0-34.0) 06/06/18 04:20 MCHC 33.5 g/dL (33.0-35.0) 06/06/18 04:20 RDW 14.9 % (11.6-16.5) 06/06/18 04:20 Plt Count 171 X10^3/uL (150.0-450.0) 06/06/18 04:20 MPV 9.3 fL (7.4-11.0) 06/06/18 04:20 Neut % (Auto) 56.9 % (42.0-75.0) 06/06/18 04:20 Lymph % (Auto) 31.4 % (21.0-51.0) 06/06/18 04:20 [place] % (Auto) 8.3 % (0.0-13.0) 06/06/18 04:20 Eos % (Auto) 3.0 % (0.9-2.9) H 06/06/18 04:20 Baso % (Auto) 0.4 % (0.2-1.0) 06/06/18 04:20 Neut # (Auto) 3.1 x10^3/uL (2.2-4.8) 06/06/18 04:20 Lymph # (Auto) 1.7 X10^3/uL (1.3-2.9) 06/06/18 04:20 [place]iles # (Auto) 0.4 x10^3/uL (0.3-0.8) 06/06/18 04:20 Eos # (Auto) 0.2 x10^3/uL (0.0-0.2) 06/06/18 04:20 Baso # (Auto) 0.0 X10^3/uL (0.0-0.1) 06/06/18 04:20 Absolute Nucleated RBC 0.0 /100WBC 06/06/18 04:20 INR Target Range - 06/04/18 11:00 INR 1.24 (0.8-1.3) 06/04/18 11:00 APTT 38.2 SECONDS (22.9-36.5) H 06/04/18 11:00 PTT Comment - 06/04/18 11:00 Fibrinogen 512 mg/dL (239-489) H 06/04/18 11:00 Sodium 140 mmol/L (136-145) 06/06/18 04:20 Corrected Sodium TNP 06/06/18 04:20 Potassium 3.8 mmol/L (3.5-5.1) 06/06/18 04:20 Chloride 106 mmol/L (98-107) 06/06/18 04:20 Carbon Dioxide 27.5 mmol/L (21-32) 06/06/18 04:20 BUN 15 mg/dL (7-18) 06/06/18 04:20 Creatinine 1.07 mg/dL (0.70-1.30) 06/06/18 04:20 Est GFR (MDRD) Af Amer > 60 (>60) 06/06/18 04:20 Est GFR (MDRD) Non-Af > 60 (>60) 06/06/18 04:20 Glucose 98 mg/dL (65-99) 06/06/18 04:20 POC Glucose (mg/dL) 79 mg/dL (65-99) 06/04/18 16:33 Calcium 9.0 mg/dL (8.5-10.1) 06/06/18 04:20 Corrected Calcium 10.1 mg/dL (8.5-10.1) 06/06/18 04:20 Total Bilirubin 0.50 mg/dL (0.2-1.0) 06/06/18 04:20 AST 13 Units/L (15-37) L 06/06/18 04:20 ALT 18 Units/L (12-78) 06/06/18 04:20 Alkaline Phosphatase 56 Units/L (46-116) 06/06/18 04:20 Creatine Kinase 82 Units/L (39-308) 06/04/18 11:00 CK-MB (CK-2) 1.1 ng/mL (0-4.0) 06/04/18 11:00 CK/CKMB % Calc 1.3 % (<4) 06/04/18 11:00 Troponin I < 0.02 ng/mL (0-1.5) 06/04/18 11:00 Total Protein 6.9 g/dL (6.4-8.2) 06/06/18 04:20 Albumin 2.6 g/dL (3.4-5.0) L 06/06/18 04:20 Globulin 4.3 g/dL (2.5-4.5) 06/06/18 04:20 Albumin/Globulin Ratio 0.6 Ratio (1.1-2.1) L 06/06/18 04:20 Triglycerides 61 mg/dL (0-150) 06/04/18 11:00 Cholesterol 71 mg/dL (0-200) 06/04/18 11:00 LDL Cholesterol, Calc 18 mg/dL (0-100) 06/04/18 11:00 HDL Cholesterol 41 mg/dL (40-60) 06/04/18 11:00 Cholesterol/HDL Ratio 1.7 (0.0-5.0) 06/04/18 11:00 Specimen Type Catherized urine 06/04/18 15:09 Urine Color Yellow (YELLOW) 06/04/18 15: Urine Appearance Clear (CLEAR) 06/04/18 15:09 Urine pH 8.0 (5.0 - 8.0) 06/04/18 15:09 Ur Specific [place] 1.015 (1.000-1.030) 06/04/18 15:09 Urine Protein Negative (NEGATIVE) 06/04/18 15:09 Urine Glucose (UA) Negative (NEGATIVE) 06/04/18 15: Urine Ketones Negative (NEGATIVE) 06/04/18 15: Urine Occult Blood Negative (NEGATIVE) 06/04/18 15: Urine Nitrite Negative (NEGATIVE) 06/04/18 15: Urine Bilirubin Negative (NEGATIVE) 06/04/18 15:09 Urine Urobilinogen Normal (NORMAL) 06/04/18 15:09 Ur Leukocyte Esterase Negative (NEGATIVE) 06/04/18 15:09 - Plan (1) Altered mental status Status: Acute Qualifiers: Altered mental status type: transient alteration of awareness Qualified Code(s): R40.4 - Transient alteration of awareness (2) History of CVA (cerebrovascular accident) Status: Chronic
[2018-06-06] MEDS: PULMICORT NEB TX 0.5 MG NEB SCH (09:14)
[2018-06-06] MEDS: COLACE SYRUP 100 MG UDC PEG SCH (09:30)
[2018-06-06] MEDS: SINGULAIR TAB 10 MG PEG SCH (09:31)
[2018-06-06] MEDS: NAMENDA TAB 10 MG PEG SCH (09:31)
[2018-06-06] MEDS: EFFEXOR XR 75 MG CAP PO SCH (09:31)
[2018-06-06] MEDS: GEODON PO SCH (09:31)
[2018-06-06] MEDS: LOPRESSOR TAB 25 MG PEG SCH (09:32)
[2018-06-06] MEDS: ELIQUIS NG SCH (09:32)
[2018-06-06] MEDS: LASIX PEG SCH (09:33)
[2018-06-06] MEDS: ZANTAC PO SCH (09:35)
[2018-06-06] MEDS: THIORIDAZINE 50 MG Feeding Tube SCH (09:42)
[2018-06-06 12:27] VITALS: BP 98/57
== END 2018-06-06 13:45 ==
LOC: MED/SURG 10:39 → ER 10:39 → MED/SURG 19:28
PROVIDERS: ADMIT Obstetrics & Gynecology Obstetrics; ATTEND Internal Medicine
DX: R79.1 Abnormal coagulation profile; Z93.1 Gastrostomy status; R40.4 Transient alteration of awareness; I69.351 Hemiplegia and hemiparesis following cerebral infarction affecting right dominant side; R94.31 Abnormal electrocardiogram [ECG] [EKG]; R53.1 Weakness; R29.810 Facial weakness; G45.8 Other transient cerebral ischemic attacks and related syndromes
CPT/HCPCS: 36415; 51701; 70450; 70551; 71010; 71045; 80053; 80061; 81003; 82550; 82553; 84484; 85025; 85384; 85610; 85730; 92523; 93005; 94640; 94760; 96365; 96367; 97163; 97166; 97535; 99284; A4222; G0378; J3490; J7030; J7620; J7626

== ENCOUNTER 2018-11-23 13:48 | Observation (INO) ==
[2018-11-23] MEDS ORDERED: NS 1000 ML 1,000 ML ONE (16:51)
[2018-11-23 17:00] LABS: BASOPHILS % (AUTO) 0.3 % (0.2-1.0); EOSINOPHILS % (AUTO) 0.1 % (0.9-2.9); HEMATOCRIT 41.1 % (42.0-54.0); HEMOGLOBIN 14.1 g/dL (13.5-18.0); LYMPHOCYTES # (AUTO) 1.7 X10^3/uL (1.3-2.9); LYMPHOCYTES % (AUTO) 10.5 % (21.0-51.0); MEAN CORPUSCULAR HGB CONC 34.3 g/dL (33.0-35.0); MEAN CORPUSCULAR VOLUME 87.3 fL (80.0-100.0); MONOCYTES # (AUTO) 1.3 x10^3/uL (0.3-0.8); NEUTROPHILS # (AUTO) 13.6 x10^3/uL (2.2-4.8); NEUTROPHILS % (AUTO) 81.1 % (42.0-75.0); PLATELET COUNT 168 X10^3/uL (150.0-450.0); WHITE BLOOD COUNT 16.7 X10^3/uL (3.6-10.0)
[2018-11-23] MEDS: NS 1000 ML 1,000 ML IV SCH (17:12)
[2018-11-23 17:22] LABS: ALANINE AMINOTRANSFERASE 21 Units/L (12-78); ALBUMIN 3.5 g/dL (3.4-5.0); ALKALINE PHOSPHATASE 66 Units/L (46-116); ASPARTATE AMINO TRANSFERASE 19 Units/L (15-37); BLOOD UREA NITROGEN 21 mg/dL (7-18); CALCIUM 9.5 mg/dL (8.5-10.1); CARBON DIOXIDE 30.1 mmol/L (21-32); CHLORIDE 98 mmol/L (98-107); CKMB % 0.9 % (<4); CREATINE KINASE 138 Units/L (39-308); CREATINE KINASE MB 1.2 ng/mL (0-4.0); CREATININE 1.39 mg/dL (0.70-1.30); MAGNESIUM 2.3 mg/dL (1.7-2.9); SODIUM 135 mmol/L (136-145); TOTAL PROTEIN 8.2 g/dL (6.4-8.2); TROPONIN I < 0.02 ng/mL (0-1.5); eGFR NON BLACK RACES 53 (>60)
[2018-11-23] MEDS: DUONEB 0.5 MG/3 MG NEB SCH (20:23)
[2018-11-23 21:36] VITALS: BMI 25.3
[2018-11-23 23:19] LABS: CKMB % 0.9 % (<4); CREATINE KINASE 115 Units/L (39-308); TROPONIN I < 0.02 ng/mL (0-1.5)
[2018-11-24 02:32] LABS: BILIRUBIN,URINE NEGATIVE (NEGATIVE); BLOOD/HEMOGLOBIN,URINE 2+ (NEGATIVE); GLUCOSE, URINE NEGATIVE (NEGATIVE); KETONES,URINE NEGATIVE (NEGATIVE); LEUKOCYTE ESTERASE ,URINE NEGATIVE (NEGATIVE); NITRITES,URINE NEGATIVE (NEGATIVE); PROTEIN,URINE NEGATIVE (NEGATIVE); UROBILINOGEN,URINE NORMAL (NORMAL)
[2018-11-24 02:33] LABS: APPEARANCE,URINE SLIGHTLY HAZY (CLEAR); COLOR,URINE YELLOW (YELLOW)
[2018-11-24 02:44] LABS: AMORPHOUS SEDIMENT,UR 3+ /HPF (NEGATIVE); BACTERIA,URINE NEGATIVE /HPF (NEGATIVE); RENAL EPITHELIAL CELLS,URINE FEW /HPF (NEGATIVE); SQUAMOUS EPITHELIAL CELL,UR NEGATIVE /HPF (NEGATIVE)
[2018-11-24 03:58] LABS: BASOPHILS % (AUTO) 0.2 % (0.2-1.0); EOSINOPHILS # (AUTO) 0.1 x10^3/uL (0.0-0.2); EOSINOPHILS % (AUTO) 0.8 % (0.9-2.9); LYMPHOCYTES # (AUTO) 1.3 X10^3/uL (1.3-2.9); LYMPHOCYTES % (AUTO) 12.2 % (21.0-51.0); MEAN CORPUSCULAR HEMOGLOBIN 30.2 pg (27.0-34.0); MEAN CORPUSCULAR HGB CONC 34.4 g/dL (33.0-35.0); MEAN CORPUSCULAR VOLUME 87.8 fL (80.0-100.0); MEAN PLATELET VOLUME 8.3 fL (7.4-11.0); MONOCYTES # (AUTO) 0.9 x10^3/uL (0.3-0.8); MONOCYTES % (AUTO) 9.2 % (0.0-13.0); NEUTROPHILS % (AUTO) 77.6 % (42.0-75.0); PLATELET COUNT 143 X10^3/uL (150.0-450.0); RED BLOOD COUNT 3.98 X10^6/uL (4.7-6.0); RED CELL DISTRIBUTION WIDTH 13.6 % (11.6-16.5); WHITE BLOOD COUNT 10.3 X10^3/uL (3.6-10.0)
[2018-11-24 04:13] LABS: ALANINE AMINOTRANSFERASE 18 Units/L (12-78); ALBUMIN 2.9 g/dL (3.4-5.0); ALKALINE PHOSPHATASE 56 Units/L (46-116); ASPARTATE AMINO TRANSFERASE 15 Units/L (15-37); BLOOD UREA NITROGEN 19 mg/dL (7-18); CALCIUM 8.7 mg/dL (8.5-10.1); CARBON DIOXIDE 27.7 mmol/L (21-32); CHLORIDE 101 mmol/L (98-107); COR CA(FOR HYPOALB) 9.6 mg/dL (8.5-10.1); CREATININE 1.12 mg/dL (0.70-1.30); SODIUM 137 mmol/L (136-145); TOTAL PROTEIN 6.7 g/dL (6.4-8.2); eGFR NON BLACK RACES > 60 (>60)
[2018-11-24 04:28] LABS: CHOL/HDL RATIO 1.9 (0.0-5.0); CHOLESTEROL 71 mg/dL (0-200); CREATINE KINASE 102 Units/L (39-308); CREATINE KINASE MB < 1.0 ng/mL (0-4.0); HDL CHOLESTEROL 38 mg/dL (40-60); TRIGLYCERIDES 62 mg/dL (0-150); TROPONIN I < 0.02 ng/mL (0-1.5)
[2018-11-24] MEDS: DUONEB 0.5 MG/3 MG NEB SCH ×3 (05:05→20:16)
[2018-11-24] MEDS: NS 1000 ML 1,000 ML IV SCH ×3 (05:27→19:07)
--- NOTE | 2018-11-24 06:31 | RAD ---
Examination: AP chest History: Chest pain Comparison reference 11/23/2018 Findings: Continued normal heart size with essentially clear lungs and pleural spaces. Impression: No change; no active chest abnormality demonstrated. Reported By:
[2018-11-24] MEDS ORDERED: TUSSIONEX PENNKINETIC SUSP PO PRN (11:11)
[2018-11-24] MEDS ORDERED: XANAX PO PRN (20:29)
[2018-11-24] MEDS ORDERED: ARICEPT TAB 10 MG PO SCH (21:00)
[2018-11-25 01:31] LABS: BILIRUBIN,URINE NEGATIVE (NEGATIVE); BLOOD/HEMOGLOBIN,URINE 5+ (NEGATIVE); GLUCOSE, URINE NEGATIVE (NEGATIVE); KETONES,URINE NEGATIVE (NEGATIVE); LEUKOCYTE ESTERASE ,URINE 3+ (NEGATIVE); NITRITES,URINE NEGATIVE (NEGATIVE); PROTEIN,URINE 3+ (NEGATIVE); UROBILINOGEN,URINE NORMAL (NORMAL)
[2018-11-25 01:34] LABS: APPEARANCE,URINE SLIGHTLY HAZY (CLEAR); COLOR,URINE YELLOW (YELLOW)
[2018-11-25 01:37] LABS: BACTERIA,URINE NEGATIVE /HPF (NEGATIVE); RBC,URINE 20-30 /HPF (0-3); SQUAMOUS EPITHELIAL CELL,UR FEW /HPF (NEGATIVE)
[2018-11-25 01:38] LABS: COARSE GRANULAR CASTS,URINE FEW /HPF (NEGATIVE)
[2018-11-25] MEDS ORDERED: STERILE WATER IRRIGATION IR ONE (02:26)
[2018-11-25 05:25] LABS: BASOPHILS % (AUTO) 0.3 % (0.2-1.0); EOSINOPHILS % (AUTO) 0.3 % (0.9-2.9); HEMATOCRIT 35.8 % (42.0-54.0); HEMOGLOBIN 12.2 g/dL (13.5-18.0); LYMPHOCYTES # (AUTO) 1.1 X10^3/uL (1.3-2.9); LYMPHOCYTES % (AUTO) 11.8 % (21.0-51.0); MEAN CORPUSCULAR HEMOGLOBIN 30.3 pg (27.0-34.0); MEAN CORPUSCULAR VOLUME 89.1 fL (80.0-100.0); MONOCYTES # (AUTO) 0.9 x10^3/uL (0.3-0.8); MONOCYTES % (AUTO) 9.2 % (0.0-13.0); NEUTROPHILS # (AUTO) 7.6 x10^3/uL (2.2-4.8); NEUTROPHILS % (AUTO) 78.4 % (42.0-75.0); PLATELET COUNT 144 X10^3/uL (150.0-450.0); RED BLOOD COUNT 4.02 X10^6/uL (4.7-6.0); RED CELL DISTRIBUTION WIDTH 13.9 % (11.6-16.5); WHITE BLOOD COUNT 9.7 X10^3/uL (3.6-10.0)
[2018-11-25 05:39] LABS: ALANINE AMINOTRANSFERASE 19 Units/L (12-78); ALKALINE PHOSPHATASE 56 Units/L (46-116); ASPARTATE AMINO TRANSFERASE 18 Units/L (15-37); BLOOD UREA NITROGEN 13 mg/dL (7-18); CALCIUM 9.1 mg/dL (8.5-10.1); CARBON DIOXIDE 27.3 mmol/L (21-32); CHLORIDE 105 mmol/L (98-107); COR CA(FOR HYPOALB) 9.9 mg/dL (8.5-10.1); CREATININE 0.88 mg/dL (0.70-1.30); SODIUM 140 mmol/L (136-145); TOTAL PROTEIN 7.1 g/dL (6.4-8.2); eGFR NON BLACK RACES > 60 (>60)
--- NOTE | 2018-11-25 07:34 | RAD ---
HISTORY: 73-year-old male with chest pain. Study: Frontal view of the chest. Comparison: Chest radiograph 11/24/2018 Findings: The trachea is midline. The cardiac silhouette is stable. The lungs are clear without focal consolidation, effusion or pneumothorax. Soft tissues are unremarkable. Osseous structures are unremarkable. IMPRESSION: 1. No acute cardiopulmonary disease. Reported By:
[2018-11-25] MEDS ORDERED: LASIX GT SCH (08:19)
[2018-11-25] MEDS ORDERED: NAMENDA TAB 10 MG GT SCH ×2 (09:00→21:00)
[2018-11-25] MEDS ORDERED: XANAX PO SCH (09:00)
[2018-11-25] MEDS ORDERED: SINGULAIR TAB 10 MG GT SCH (09:00)
[2018-11-25] MEDS ORDERED: ELIQUIS PO SCH (09:00)
[2018-11-25] MEDS ORDERED: COLACE CAP 100 MG PO SCH (09:00)
[2018-11-25] MEDS ORDERED: LOPRESSOR TAB 25 MG GT SCH (09:00)
[2018-11-25] MEDS ORDERED: EFFEXOR TAB 75 MG (BID DOSING) PO SCH (09:00)
[2018-11-25] MEDS: NS 1000 ML 1,000 ML IV SCH (09:51)
[2018-11-25] MEDS ORDERED: XANAX ONE ×2 (09:54→10:03)
[2018-11-25] MEDS ORDERED: ELIQUIS ONE (09:54)
[2018-11-25] MEDS ORDERED: EFFEXOR TAB 75 MG (BID DOSING) PO ONE (09:54)
[2018-11-25] MEDS ORDERED: LOPRESSOR TAB 25 MG ONE (09:55)
[2018-11-25] MEDS ORDERED: SINGULAIR TAB 10 MG ONE (09:55)
[2018-11-25] MEDS ORDERED: NAMENDA TAB 10 MG ONE (09:55)
[2018-11-25] MEDS ORDERED: LASIX ONE (09:56)
[2018-11-25] MEDS: DUONEB 0.5 MG/3 MG NEB SCH (10:08)
[2018-11-25] MEDS ORDERED: ZANTAC ONE (10:38)
[2018-11-25] MEDS ORDERED: GEODON PO ONE (10:39)
[2018-11-25] MEDS ORDERED: LACRI-LUBE S.O.P. ONE (10:49)
[2018-11-25] MEDS ORDERED: ARTIFICIAL TEARS DROPS EACHEYE SCH (11:00)
[2018-11-25] MEDS ORDERED: ZANTAC PO SCH (11:00)
[2018-11-25] MEDS ORDERED: GEODON PO SCH (11:00)
[2018-11-25 12:00] VITALS: BP 112/64
[2018-11-25] MEDS ORDERED: COLACE SYRUP 100 MG UDC PO SCH (21:00)
[2018-11-25] MEDS ORDERED: LACRI-LUBE S.O.P. AFFEYE SCH (21:00)
== END 2018-11-25 14:15 ==
LOC: MED/SURG
PROVIDERS: ADMIT Internal Medicine; ATTEND Internal Medicine
DX: R82.998 Other abnormal findings in urine; R07.89 Other chest pain; D68.9 Coagulation defect, unspecified; R00.0 Tachycardia, unspecified
CPT/HCPCS: 36415; 71010; 71045; 80053; 80061; 81001; 82550; 82553; 83735; 84484; 85025; 85610; 85730; 93005; 94640; 94760; 96367; A4222; G0378; J7030; J7620

== ENCOUNTER 2019-02-06 19:29 | Inpatient (IN) ==
[2019-02-06] MEDS ORDERED: TUSSIONEX PENNKINETIC SUSP PO PRN (21:06)
[2019-02-06 21:34] LABS: BASOPHILS # (AUTO) 0.2 X10^3/uL (0.0-0.1); BASOPHILS % (AUTO) 1.5 % (0.2-1.0); HEMATOCRIT 36.8 % (42.0-54.0); HEMOGLOBIN 12.5 g/dL (13.5-18.0); LYMPHOCYTES # (AUTO) 1.5 X10^3/uL (1.3-2.9); LYMPHOCYTES % (AUTO) 10.3 % (21.0-51.0); MEAN CORPUSCULAR HEMOGLOBIN 29.7 pg (27.0-34.0); MEAN CORPUSCULAR HGB CONC 33.8 g/dL (33.0-35.0); MEAN CORPUSCULAR VOLUME 87.7 fL (80.0-100.0); MONOCYTES % (AUTO) 6.7 % (0.0-13.0); NEUTROPHILS # (AUTO) 11.7 x10^3/uL (2.2-4.8); NEUTROPHILS % (AUTO) 81.5 % (42.0-75.0); PLATELET COUNT 171 X10^3/uL (150.0-450.0); RED CELL DISTRIBUTION WIDTH 14.6 % (11.6-16.5); WHITE BLOOD COUNT 14.4 X10^3/uL (3.6-10.0)
[2019-02-06] MEDS ORDERED: NS 1/2 1000 ML IV 1,000 ML IV ONE (21:41)
[2019-02-06 21:45] LABS: ALANINE AMINOTRANSFERASE 17 Units/L (12-78); ALBUMIN 3.1 g/dL (3.4-5.0); ALKALINE PHOSPHATASE 65 Units/L (46-116); ASPARTATE AMINO TRANSFERASE 20 Units/L (15-37); BLOOD UREA NITROGEN 16 mg/dL (7-18); CARBON DIOXIDE 29.2 mmol/L (21-32); CHLORIDE 104 mmol/L (98-107); COR CA(FOR HYPOALB) 9.7 mg/dL (8.5-10.1); CREATININE 1.02 mg/dL (0.70-1.30); SODIUM 138 mmol/L (136-145); TOTAL PROTEIN 7.3 g/dL (6.4-8.2); eGFR NON BLACK RACES > 60 (>60)
[2019-02-06] MEDS: ROBITUSSIN DM PO SCH (21:45)
[2019-02-06] MEDS: NS 1/2 1000 ML IV 1,000 ML IV SCH (21:45)
[2019-02-06] MEDS: VSL#3 PO SCH (21:46)
[2019-02-06 22:38] VITALS: BMI 24.7
[2019-02-06] MEDS ORDERED: PHARMACY CONSULT LTC MEDICATIONS XX SCH (23:00)
[2019-02-07] MEDS: XOPENEX 1.25 MG/3 ML NEBULE NEB SCH ×5 (00:58→17:50)
[2019-02-07] MEDS: FORTAZ or TAZICEF VIAL INJ 1 G in NS 100 ML IV + SPIKE MINIBAG* 100 ML IV SCH ×3 (05:47→22:42)
[2019-02-07 05:55] LABS: BASOPHILS % (AUTO) 0.1 % (0.2-1.0); EOSINOPHILS % (AUTO) 0.4 % (0.9-2.9); HEMATOCRIT 36.9 % (42.0-54.0); HEMOGLOBIN 12.7 g/dL (13.5-18.0); LYMPHOCYTES # (AUTO) 1.3 X10^3/uL (1.3-2.9); LYMPHOCYTES % (AUTO) 12.1 % (21.0-51.0); MEAN CORPUSCULAR HGB CONC 34.4 g/dL (33.0-35.0); MEAN CORPUSCULAR VOLUME 87.1 fL (80.0-100.0); MEAN PLATELET VOLUME 8.5 fL (7.4-11.0); MONOCYTES # (AUTO) 0.9 x10^3/uL (0.3-0.8); MONOCYTES % (AUTO) 8.4 % (0.0-13.0); NEUTROPHILS # (AUTO) 8.3 x10^3/uL (2.2-4.8); PLATELET COUNT 161 X10^3/uL (150.0-450.0); RED BLOOD COUNT 4.23 X10^6/uL (4.7-6.0); RED CELL DISTRIBUTION WIDTH 14.5 % (11.6-16.5); WHITE BLOOD COUNT 10.5 X10^3/uL (3.6-10.0)
[2019-02-07 06:07] LABS: ALANINE AMINOTRANSFERASE 15 Units/L (12-78); ALKALINE PHOSPHATASE 68 Units/L (46-116); ASPARTATE AMINO TRANSFERASE 20 Units/L (15-37); BLOOD UREA NITROGEN 14 mg/dL (7-18); CALCIUM 8.8 mg/dL (8.5-10.1); CARBON DIOXIDE 23.6 mmol/L (21-32); CHLORIDE 104 mmol/L (98-107); COR CA(FOR HYPOALB) 9.6 mg/dL (8.5-10.1); CREATININE 0.96 mg/dL (0.70-1.30); SODIUM 137 mmol/L (136-145); TOTAL PROTEIN 7.2 g/dL (6.4-8.2); eGFR NON BLACK RACES > 60 (>60)
--- NOTE | 2019-02-07 06:30 | RAD ---
HISTORY:Shortness of breath, pneumoniaStudy: Single view chestComparison:02/06/2019Findings:No infiltrate, effusion, or pneumothorax identified .Cardiac and mediastinal contours are within normal limits .The soft tissues are intact .IMPRESSION:1. No acute cardiopulmonary abnormality.Electronically signed by: LUKAS RUSH (Feb 07, 2019 06:29:11)
[2019-02-07] MEDS: ROBITUSSIN DM PO SCH ×4 (08:43→22:41)
[2019-02-07] MEDS: VSL#3 PO SCH (08:43)
[2019-02-07] MEDS: LEVAQUIN PREMIX IV 750 MG 750 MG/150 ML BAG IV SCH ×2 (08:43→19:30)
[2019-02-07] MEDS: PULMICORT NEB TX 0.5 MG NEB SCH ×2 (09:40→20:56)
--- NOTE | 2019-02-07 09:46 | DR.H&P ---
H&P - History & Physical for Day of: H&P Date: 02/06/19 - Chief Complaint Chief Complaint: FEVER, COUGH, SOB - History of Present Illness History of Present Illness: IS A 73 YEAR OLD PATIENT OF OURS. HE IS A PATIENT OF [facility]. HE WAS A DIRECT ADMISSION FOR BRONCHOPNEUMONIA. STAFF REPORTS THAT FEVER HAS REACHED 102.7. HE HAS ALSO HAD COUGH AND SHORTNESS OF BREATH. HE HAS BEEN ON CEFDINIR 300MG PO BID FOR THE PAST 10 DAYS. HE WAS SEEN IN THE ER YESTERDAY MORNING. SPUTUM GRAM STAIN REVEALED MODERATE GROWTH OF GRAM POSITIVE COCCI. ON ADMISSION, HIS VITALS WERE 98.9-92-24-97%-123/67. LABS WERE OBTAINED. ABNORMAL LAB VALUES INCLUDE THE FOLLOWING: WBC 14.4, RBC 4.20, HGB 12.5, HCT 36.8, ALBUMIN 3.1. BLOOD CULTURES AND SPUTUM CULTURE ARE PENDING. CHEST XRAY REVEALED: NO ACUTE CARDIOPULMONARY ABNORMALITY. HE WAS STARTED ON 1/2NS AT 75ML/HR, IV FORTAZ, IV LEVAQUIN, RESPIRATORY TX, SUPPLEMENTAL OXYGEN, TUSSIONEX, AND ROBITUSSIN. WE PLAN TO FOLLOW UP WITH AM LABS AND CHEST XRAY AND CONTINUE TO MONITOR. - Past Medical History Past Medical History: Hypertension, Dyslipidemia, Diabetes, Schizophrenia, Dementia, Depression, Anxiety, CVA, COPD, GERD Additional Medical History: Prostate Cancer, Chronic Cholelithiasis - Past Surgical History Surgical History: Cholecystectomy, Ortho Surgery, Other Additional Surgical History: Prostatectomy, Hiatal Hernia Repair, Left Knee - Family History Family Medical History: Cancer - Social History Does patient currently use any type of tobacco product: No Have you used tobacco products in the last 12 months: No Type of Tobacco Use: None Alcohol Use: None Drug Use: None Prescription drug monitoring program results: PDMP was not reviewed - Medications Home Medications: No Known Drug Allergies Allergy (Verified 12/31/18 15:29) CONTINUE taking the following medications dextromethorphan-guaifenesin 10 ml FEEDING TUBE Q6H PRN 02/06/19 [History] lactose-reduced food with fibr [Jevity 1.5 Moustapha] 1 ea FEEDING TUBE Q4H 02/06/19 [History] - Review of Systems Constitutional: See HPI, Fever Eyes: No Symptoms Reported ENT: No Symptoms Reported Respiratory: Cough, Shortness of Breath Cardiovascular: No Symptoms Reported Gastrointestinal: No Symptoms Reported Genitourinary: No Symptoms Reported Musculoskeletal: No Symptoms Reported Skin: No Symptoms Reported Neurological: No Symptoms Reported - Physical Exam Vital Signs: Temperature 98.8 F Pulse Rate [Apical] 89 Pulse Rate 72 Respiratory Rate 26 Blood Pressure [Left Arm] 116/55 Blood Pressure [Right Arm] 112/68 Blood Pressure 123/67 O2 Sat by Pulse Oximetry 98 Oriented: Normal Eyes: Normal Ear: Normal Nose: Normal Throat: Normal Respiratory: Wheezes Throughout Cardiovascular: Normal : Normal Auscultation: Bowel Sounds: Normal Palpation: Normal Tenderness: Normal Skin: Normal Musculoskeletal: Normal Psychiatric: Normal Mood Description: Calm Affect: Normal Speech Pattern: Aphasic - Assessment/Plan (1) Bronchopneumonia Status: Acute Plan: 1/2NS AT 75ML/HR, IV FORTAZ, IV LEVAQUIN, RESPIRATORY TX, SUPPLEMENTAL OXYGEN, TUSSIONEX, AND ROBITUSSIN - Allergies Allergies/Adverse Reactions: Allergies Allergy/AdvReac Type Severity Reaction Status Date / Time No Known Drug Allergies Allergy Verified 12/31/18 15:29
[2019-02-07] MEDS ORDERED: LACTOSE REDUCED FOOD WITH FIBR feeding tube SCH (10:15)
[2019-02-07] MEDS ORDERED: ARTIFICIAL TEARS OP SCH (10:15)
[2019-02-07] MEDS ORDERED: PATIENT'S HOME MEDICATION (Ranitidine Hcl 150 MG) Feeding Tube SCH (10:30)
[2019-02-07] MEDS ORDERED: EFFEXOR XR 75 MG CAP PO SCH (11:00)
[2019-02-07] MEDS ORDERED: GEODON PO SCH (11:00)
[2019-02-07] MEDS: XANAX PEG PRN ×2 (11:26→22:39)
[2019-02-07] MEDS: SINGULAIR TAB 10 MG PEG SCH (11:26)
[2019-02-07] MEDS: LASIX PEG SCH ×2 (11:26→22:41)
[2019-02-07] MEDS: LOPRESSOR TAB 25 MG PEG SCH ×2 (11:26→22:40)
[2019-02-07] MEDS: GEODON PO SCH ×2 (11:26→22:41)
[2019-02-07] MEDS: EFFEXOR TAB 75 MG (BID DOSING) PO SCH (11:27)
[2019-02-07] MEDS: NAMENDA TAB 10 MG PEG SCH ×2 (11:27→22:39)
[2019-02-07] MEDS ORDERED: ASTELIN NASAL SPRAY ENOSTRIL ONE ×2 (13:56→14:05)
[2019-02-07] MEDS: THIORIDAZINE 50 MG Feeding Tube SCH (14:00)
[2019-02-07] MEDS: VALPROIC ACID Feeding Tube SCH ×3 (14:01→22:42)
[2019-02-07] MEDS: COLACE SYRUP 100 MG UDC PEG SCH (14:07)
[2019-02-07] MEDS: FLONASE NASAL SPRAY ENOSTRIL SCH ×2 (14:22→22:40)
[2019-02-07] MEDS: ASTELIN NASAL SPRAY ENOSTRIL SCH ×2 (14:23→22:41)
[2019-02-07] MEDS: NS 1/2 1000 ML IV 1,000 ML IV SCH (14:23)
--- NOTE | 2019-02-07 16:21 | RAD ---
HISTORYBLEEDING FROM G-TUBE; TONH STATES "SOMETHING RED CAME OUT OF TUBE WHEN WE PULLED BACK BEFORE FEEDING, NOT FOR PLACEMENT PER NURSE HTN, DM, CVA, COPD, GB, ORTHO, G-TUBESTUDYKUBCOMPARISONCT scan of the abdomen and pelvis done 01/01/2020.FINDINGSThere are surgical clips from cholecystectomy. An IVC filter is present at the L2-3 level distal right of the midline. A G-tube is present in the midline overlying the gastric body. No evidence of bowel obstruction is seen. There is moderate stool present throughout the colon with a 6 centimeter rectal fecal impaction. No opaque stone is seen. Osseous structures are intact.IMPRESSIONNo evidence of bowel obstruction is seen. There is moderate stool present throughout the colon with a 6 centimeter rectal fecal impaction. The G-tube overlies the region of the gastric body. Without contrast in the tube, the intraluminal position of the tube is not assured.Electronically signed by: WARREN LOU (Feb 07, 2019 16:19:38)
[2019-02-07] MEDS ORDERED: NS 1/2 1000 ML IV 1,000 ML IV ONE (17:26)
[2019-02-07] MEDS: ARICEPT TAB 10 MG PEG SCH (22:40)
[2019-02-08] MEDS: XOPENEX 1.25 MG/3 ML NEBULE NEB SCH ×4 (00:40→17:07)
[2019-02-08] MEDS: ASTELIN NASAL SPRAY ENOSTRIL SCH ×3 (05:41→22:11)
[2019-02-08] MEDS: NS 1/2 1000 ML IV 1,000 ML IV SCH ×2 (05:41→15:08)
[2019-02-08] MEDS: FORTAZ or TAZICEF VIAL INJ 1 G in NS 100 ML IV + SPIKE MINIBAG* 100 ML IV SCH ×3 (05:41→22:11)
[2019-02-08] MEDS: VALPROIC ACID Feeding Tube SCH ×3 (05:42→22:11)
[2019-02-08 05:58] LABS: BASOPHILS % (AUTO) 0.5 % (0.2-1.0); EOSINOPHILS # (AUTO) 0.1 x10^3/uL (0.0-0.2); EOSINOPHILS % (AUTO) 0.6 % (0.9-2.9); HEMOGLOBIN 11.7 g/dL (13.5-18.0); LYMPHOCYTES # (AUTO) 1.7 X10^3/uL (1.3-2.9); LYMPHOCYTES % (AUTO) 21.3 % (21.0-51.0); MEAN CORPUSCULAR HEMOGLOBIN 30.1 pg (27.0-34.0); MEAN CORPUSCULAR HGB CONC 34.4 g/dL (33.0-35.0); MEAN CORPUSCULAR VOLUME 87.5 fL (80.0-100.0); MEAN PLATELET VOLUME 8.3 fL (7.4-11.0); MONOCYTES # (AUTO) 0.8 x10^3/uL (0.3-0.8); MONOCYTES % (AUTO) 9.9 % (0.0-13.0); NEUTROPHILS # (AUTO) 5.4 x10^3/uL (2.2-4.8); NEUTROPHILS % (AUTO) 67.7 % (42.0-75.0); PLATELET COUNT 134 X10^3/uL (150.0-450.0); RED BLOOD COUNT 3.89 X10^6/uL (4.7-6.0); RED CELL DISTRIBUTION WIDTH 14.6 % (11.6-16.5)
[2019-02-08 06:31] LABS: ALANINE AMINOTRANSFERASE 14 Units/L (12-78); ALBUMIN 2.7 g/dL (3.4-5.0); ALKALINE PHOSPHATASE 59 Units/L (46-116); ASPARTATE AMINO TRANSFERASE 18 Units/L (15-37); BLOOD UREA NITROGEN 11 mg/dL (7-18); CALCIUM 8.7 mg/dL (8.5-10.1); CARBON DIOXIDE 27.3 mmol/L (21-32); CHLORIDE 106 mmol/L (98-107); COR CA(FOR HYPOALB) 9.7 mg/dL (8.5-10.1); CREATININE 0.98 mg/dL (0.70-1.30); SODIUM 140 mmol/L (136-145); TOTAL PROTEIN 6.8 g/dL (6.4-8.2); eGFR NON BLACK RACES > 60 (>60)
--- NOTE | 2019-02-08 08:48 | RAD ---
HISTORYSOBSTUDYCHEST, 1 VIEWCOMPARISONChest film February 07, 2019FINDINGSThe trachea is midline. The cardiac silhouette is unremarkable . The left lung is clear but there is suspicion of a minimal infiltrate in the right lung base medially. This is more prominent than what was seen on the 07 February 2019 film. The bony thorax is unremarkable.IMPRESSIONMinimal infiltrate right lung base medially consistent pneumonia.Electronically signed by: ASTON NOLEN (Feb 08, 2019 08:47:15)
[2019-02-08] MEDS: LEVAQUIN PREMIX IV 750 MG 750 MG/150 ML BAG IV SCH (08:53)
[2019-02-08] MEDS: COLACE SYRUP 100 MG UDC PEG SCH (08:55)
[2019-02-08] MEDS: ROBITUSSIN DM PO SCH ×4 (08:56→22:11)
[2019-02-08] MEDS: VSL#3 PO SCH (08:56)
[2019-02-08] MEDS: LASIX PEG SCH ×2 (08:57→22:10)
[2019-02-08] MEDS: LOPRESSOR TAB 25 MG PEG SCH ×2 (08:57→22:10)
[2019-02-08] MEDS: SINGULAIR TAB 10 MG PEG SCH (08:57)
[2019-02-08] MEDS: NAMENDA TAB 10 MG PEG SCH ×2 (08:58→22:10)
[2019-02-08] MEDS: FLONASE NASAL SPRAY ENOSTRIL SCH ×2 (08:58→22:09)
[2019-02-08] MEDS: GEODON PO SCH ×2 (08:58→22:10)
[2019-02-08] MEDS: EFFEXOR TAB 75 MG (BID DOSING) PO SCH (09:09)
[2019-02-08] MEDS: PULMICORT NEB TX 0.5 MG NEB SCH ×2 (09:30→20:25)
--- NOTE | 2019-02-08 10:55 | PCM.PROG ---
Progress Note - Progress Note for Day of Date of Exam: 02/08/19 - Subjective Subjective: WAS ADMITTED FOR BRONCHOPNEUMONIA. TODAY, HE IS LYING IN BED WITH EYES CLOSED ON MORNING ROUNDS. HE IS DIFFICULT TO AROUSE THIS MORNING. ON EXAMINATION, HEART IS REGULAR IN RATE AND RHYTHM. BILATERAL LUNGS ARE NOTED WITH SCATTERED WHEEZING. ABDOMEN IS ROUND, SOFT, AND NON-TENDER WITH NORMAL BOWEL SOUNDS NOTED IN ALL QUADRANTS. HIS VITALS THIS MORNING ARE: 97.5-94-20-97%-104/56. LABS WERE OBTAINED. ABNORMAL LAB VALUES INCLUDE THE FOLLOWING: RBC 3.89, HGB 11.7, HCT 34.0, PLT COUNT 134, ALBUMIN 2.7. A CHEST XRAY WAS OBTAINED AND REVEALED: Minimal infiltrate right lung base medially consistent pneumonia. SPUTUM CULTURE REVEALS GROWTH OF GRAM NEGATIVE RODS. STAFF REPORTED BLOOD IN PEG TUBE YESTERDAY. A KUB WAS OBTAINED AND REVEALED: No evidence of bowel obstruction is seen. There is moderate stool present throughout the colon with a 6 centimeter rectal fecal impaction. The G-tube overlies the region of the gastric body. Without contrast in the tube, the intraluminal position of the tube is not assured. HE IS CURRENTLY RECIVING IV FORTAZ, IV LEVAQUIN, RESPIRATORY TX, SUPPLEMENTAL OXYGEN, AND HOME MEDICATIONS WERE RESUMED. WE WILL CONTINUE WITH CURRENT PLAN OF CARE TODAY AND START MILK OF MAGNESIA 30ML PO QID. OTHERWISE, WE PLAN TO FOLLOW UP WITH AM LABS AND CHEST XRAY AND CONTINUE TO MONITOR. - Past Medical Family Social History Past Med/Fam/Surg Hx: No changes since H&P Allergies: Allergies No Known Drug Allergies Allergy (Verified 12/31/18 15:29) - Review of Systems ROS: No change since H&P - Vital Signs and I&O's Vital Signs: Temperature 97.5 F Pulse Rate [Apical] 94 Pulse Rate 63 Respiratory Rate 20 Blood Pressure [Left Arm] 116/55 Blood Pressure [Right Arm] 104/56 Blood Pressure 123/67 O2 Sat by Pulse Oximetry 96 Intake and Output: Intake & Output 02/05/19 02/06/19 02/07/19 02/08/19 11:59 11:59 11:59 11:59 Intake Total 535 / 535 2130 / 2130 Output Total 0 / 0 200 / 200 Balance 535 / 535 193 / 193 - Physical Exam Oriented: Person Eyes: Normal Ear: Normal Nose: Normal Throat: Normal Cardiovascular: Normal : Normal Auscultation: Bowel Sounds: Normal Palpation: Normal Tenderness: Normal Skin: Normal Musculoskeletal: Normal Psychiatric: Normal Mood Description: Calm Affect: Normal Speech Pattern: Aphasic - Laboratory and Diagnostics Result Diagrams: 02/08/19 05:34 02/08/19 05:34 Labs: Laboratory WBC 8.0 X10^3/uL (3.6-10.0) 02/08/19 05:34 RBC 3.89 X10^6/uL (4.7-6.0) L 02/08/19 05:34 Hgb 11.7 g/dL (13.5-18.0) L 02/08/19 05:34 Hct 34.0 % (42.0-54.0) L 02/08/19 05:34 MCV 87.5 fL (80.0-100.0) 02/08/19 05:34 MCH 30.1 pg (27.0-34.0) 02/08/19 05:34 MCHC 34.4 g/dL (33.0-35.0) 02/08/19 05:34 RDW 14.6 % (11.6-16.5) 02/08/19 05:34 Plt Count 134 X10^3/uL (150.0-450.0) L 02/08/19 05:34 MPV 8.3 fL (7.4-11.0) 02/08/19 05:34 Neut % (Auto) 67.7 % (42.0-75.0) 02/08/19 05:34 Lymph % (Auto) 21.3 % (21.0-51.0) 02/08/19 05:34 [place] % (Auto) 9.9 % (0.0-13.0) 02/08/19 05:34 Eos % (Auto) 0.6 % (0.9-2.9) L 02/08/19 05:34 Baso % (Auto) 0.5 % (0.2-1.0) 02/08/19 05:34 Neut # (Auto) 5.4 x10^3/uL (2.2-4.8) H 02/08/19 05:34 Lymph # (Auto) 1.7 X10^3/uL (1.3-2.9) 02/08/19 05:34 [place] # (Auto) 0.8 x10^3/uL (0.3-0.8) 02/08/19 05:34 Eos # (Auto) 0.1 x10^3/uL (0.0-0.2) 02/08/19 05:34 Baso # (Auto) 0.0 X10^3/uL (0.0-0.1) 02/08/19 05:34 Absolute Nucleated RBC 0.1 /100WBC 02/08/19 05:34 Sodium 140 mmol/L (136-145) 02/08/19 05:34 Corrected Sodium TNP 02/08/19 05:34 Potassium 3.7 mmol/L (3.5-5.1) 02/08/19 05:34 Chloride 106 mmol/L (98-107) 02/08/19 05:34 Carbon Dioxide 27.3 mmol/L (21-32) 02/08/19 05:34 BUN 11 mg/dL (7-18) 02/08/19 05:34 Creatinine 0.98 mg/dL (0.70-1.30) 02/08/19 05:34 Est GFR (MDRD) Af Amer > 60 (>60) 02/08/19 05:34 Est GFR (MDRD) Non-Af > 60 (>60) 02/08/19 05:34 Glucose 89 mg/dL (65-99) 02/08/19 05:34 Calcium 8.7 mg/dL (8.5-10.1) 02/08/19 05:34 Corrected Calcium 9.7 mg/dL (8.5-10.1) 02/08/19 05:34 Total Bilirubin 0.50 mg/dL (0.2-1.0) 02/08/19 05:34 AST 18 Units/L (15-37) 02/08/19 05:34 ALT 14 Units/L (12-78) 02/08/19 05:34 Alkaline Phosphatase 59 Units/L (46-116) 02/08/19 05:34 Total Protein 6.8 g/dL (6.4-8.2) 02/08/19 05:34 Albumin 2.7 g/dL (3.4-5.0) L 02/08/19 05:34 Globulin 4.1 g/dL (2.5-4.5) 02/08/19 05:34 Albumin/Globulin Ratio 0.7 Ratio (1.1-2.1) L 02/08/19 05:34 - Plan (1) Bronchopneumonia Status: Acute Plan: 1/2NS AT 75ML/HR, IV FORTAZ, IV LEVAQUIN, RESPIRATORY TX, SUPPLEMENTAL OXYGEN, TUSSIONEX, AND ROBITUSSIN (2) Constipation Status: Acute Qualifiers: Constipation type: unspecified constipation type Qualified Code(s): K59.00 - Constipation, unspecified Plan: MILK OF MAGNESIA 30ML PO QID, CONTINUE TO MONITOR
[2019-02-08] MEDS: MILK OF MAGNESIA PEG SCH ×4 (12:00→22:10)
[2019-02-08] MEDS: THIORIDAZINE 50 MG Feeding Tube SCH (14:23)
[2019-02-08] MEDS ORDERED: NS 1/2 1000 ML IV 1,000 ML IV ONE (16:47)
[2019-02-08] MEDS: ARICEPT TAB 10 MG PEG SCH (22:09)
[2019-02-08] MEDS: XANAX PEG PRN (22:12)
[2019-02-09] MEDS: XOPENEX 1.25 MG/3 ML NEBULE NEB SCH ×4 (00:15→17:14)
[2019-02-09] MEDS: FORTAZ or TAZICEF VIAL INJ 1 G in NS 100 ML IV + SPIKE MINIBAG* 100 ML IV SCH ×2 (05:49→13:46)
[2019-02-09] MEDS: ASTELIN NASAL SPRAY ENOSTRIL SCH ×3 (05:50→21:01)
[2019-02-09] MEDS: NS 1/2 1000 ML IV 1,000 ML IV SCH ×3 (05:51→22:24)
[2019-02-09] MEDS: VALPROIC ACID Feeding Tube SCH ×3 (05:51→21:30)
[2019-02-09 06:25] LABS: BASOPHILS % (AUTO) 0.3 % (0.2-1.0); EOSINOPHILS # (AUTO) 0.1 x10^3/uL (0.0-0.2); EOSINOPHILS % (AUTO) 1.8 % (0.9-2.9); HEMATOCRIT 34.4 % (42.0-54.0); HEMOGLOBIN 11.8 g/dL (13.5-18.0); LYMPHOCYTES # (AUTO) 1.4 X10^3/uL (1.3-2.9); LYMPHOCYTES % (AUTO) 25.6 % (21.0-51.0); MEAN CORPUSCULAR HEMOGLOBIN 30.2 pg (27.0-34.0); MEAN CORPUSCULAR HGB CONC 34.4 g/dL (33.0-35.0); MEAN CORPUSCULAR VOLUME 87.7 fL (80.0-100.0); MEAN PLATELET VOLUME 8.2 fL (7.4-11.0); MONOCYTES # (AUTO) 0.4 x10^3/uL (0.3-0.8); MONOCYTES % (AUTO) 6.5 % (0.0-13.0); NEUTROPHILS # (AUTO) 3.6 x10^3/uL (2.2-4.8); NEUTROPHILS % (AUTO) 65.8 % (42.0-75.0); PLATELET COUNT 139 X10^3/uL (150.0-450.0); RED BLOOD COUNT 3.92 X10^6/uL (4.7-6.0); RED CELL DISTRIBUTION WIDTH 14.7 % (11.6-16.5); WHITE BLOOD COUNT 5.5 X10^3/uL (3.6-10.0)
[2019-02-09 06:48] LABS: ALANINE AMINOTRANSFERASE 16 Units/L (12-78); ALBUMIN 2.8 g/dL (3.4-5.0); ALKALINE PHOSPHATASE 60 Units/L (46-116); ASPARTATE AMINO TRANSFERASE 14 Units/L (15-37); BLOOD UREA NITROGEN 11 mg/dL (7-18); CARBON DIOXIDE 29.3 mmol/L (21-32); CHLORIDE 104 mmol/L (98-107); COR NA(FOR HYPERGLY) 141 mmol/L (136-145); CREATININE 0.91 mg/dL (0.70-1.30); MAGNESIUM 2.2 mg/dL (1.7-2.9); SODIUM 140 mmol/L (136-145); TOTAL PROTEIN 7.1 g/dL (6.4-8.2); eGFR NON BLACK RACES > 60 (>60)
[2019-02-09] MEDS ORDERED: NS 1/2 1000 ML IV 1,000 ML IV ONE (08:00)
[2019-02-09] MEDS: PULMICORT NEB TX 0.5 MG NEB SCH ×2 (08:36→21:25)
[2019-02-09] MEDS: LEVAQUIN PREMIX IV 750 MG 750 MG/150 ML BAG IV SCH (09:24)
[2019-02-09] MEDS: MILK OF MAGNESIA PEG SCH ×4 (09:29→21:00)
[2019-02-09] MEDS: ROBITUSSIN DM PO SCH ×4 (09:29→21:00)
[2019-02-09] MEDS: COLACE SYRUP 100 MG UDC PEG SCH (09:30)
[2019-02-09] MEDS: VSL#3 PO SCH (09:31)
[2019-02-09] MEDS: GEODON PO SCH ×2 (09:33→20:58)
[2019-02-09] MEDS: LASIX PEG SCH ×2 (09:33→20:58)
[2019-02-09] MEDS: FLONASE NASAL SPRAY ENOSTRIL SCH ×2 (09:34→21:00)
[2019-02-09] MEDS: THIORIDAZINE 50 MG Feeding Tube SCH (09:34)
[2019-02-09] MEDS: NAMENDA TAB 10 MG PEG SCH ×2 (09:34→20:58)
[2019-02-09] MEDS: LOPRESSOR TAB 25 MG PEG SCH ×2 (09:34→20:57)
[2019-02-09] MEDS: XANAX PEG PRN ×2 (09:34→20:56)
[2019-02-09] MEDS: EFFEXOR TAB 75 MG (BID DOSING) PO SCH (09:34)
[2019-02-09] MEDS: SINGULAIR TAB 10 MG PEG SCH (09:34)
--- NOTE | 2019-02-09 15:36 | PCM.PROG ---
Progress Note - Progress Note for Day of Date of Exam: 02/09/19 - Subjective Subjective: WAS ADMITTED FOR BRONCHOPNEUMONIA. TODAY, HE IS LYING IN BED WITH EYES CLOSED ON MORNING ROUNDS. HE IS DIFFICULT TO AROUSE THIS MORNING. ON EXAMINATION, HEART IS REGULAR IN RATE AND RHYTHM. BILATERAL LUNGS ARE NOTED WITH SCATTERED WHEEZING. ABDOMEN IS ROUND, SOFT, AND NON-TENDER WITH NORMAL BOWEL SOUNDS NOTED IN ALL QUADRANTS. HIS VITALS THIS MORNING ARE: 97.9-66-18-98%-117/56. LABS WERE OBTAINED. ABNORMAL LAB VALUES INCLUDE THE FOLLOWING: RBC 3.92, HGB 11.8, HCT 34.4, PLT COUNT 139, GLUCOSE 131, AST 14, ALBUMIN 2.8. SPUTUM CULTURE REVEALS GROWTH OF GRAM NEGATIVE RODS. HE IS C URRENTLY RECIVING IV FORTAZ, IV LEVAQUIN, RESPIRATORY TX, SUPPLEMENTAL OXYGEN, MILK OF MAGNESIA 30ML PEG QID, AND HOME MEDICATIONS WERE RESUMED. WE WILL CONTINUE WITH CURRENT PLAN OF CARE TODAY AND. OTHERWISE, WE PLAN TO FOLLOW UP WITH AM LABS AND CHEST XRAY AND CONTINUE TO MONITOR. - Past Medical Family Social History Past Med/Fam/Surg Hx: No changes since H&P Allergies: Allergies No Known Drug Allergies Allergy (Verified 12/31/18 15:29) - Review of Systems ROS: No change since H&P - Vital Signs and I&O's Vital Signs: Temperature 98 F Pulse Rate [Apical] 60 Pulse Rate 60 Respiratory Rate 18 Blood Pressure [Left Arm] 116/55 Blood Pressure [Right Arm] 92/60 Blood Pressure 123/67 O2 Sat by Pulse Oximetry 98 Intake and Output: Intake & Output 02/07/19 02/08/19 02/09/19 02/10/19 11:59 11:59 11:59 11:59 Intake Total 535 / 535 2130 / 2130 710 / 710 Output Total 0 / 0 200 / 200 Balance 535 / 535 1930 / 1930 710 / 710 - Physical Exam Oriented: Person Eyes: Normal Ear: Normal Nose: Normal Throat: Normal Cardiovascular: Normal : Normal Auscultation: Bowel Sounds: Normal Tenderness: Normal Skin: Normal Musculoskeletal: Normal Psychiatric: Normal Mood Description: Calm Affect: Normal Speech Pattern: Aphasic - Laboratory and Diagnostics Result Diagrams: 02/09/19 05:50 02/09/19 05:50 Labs: Laboratory WBC 5.5 X10^3/uL (3.6-10.0) 02/09/19 05:50 RBC 3.92 X10^6/uL (4.7-6.0) L 02/09/19 05:50 Hgb 11.8 g/dL (13.5-18.0) L 02/09/19 05:50 Hct 34.4 % (42.0-54.0) L 02/09/19 05:50 MCV 87.7 fL (80.0-100.0) 02/09/19 05:50 MCH 30.2 pg (27.0-34.0) 02/09/19 05:50 MCHC 34.4 g/dL (33.0-35.0) 02/09/19 05:50 RDW 14.7 % (11.6-16.5) 02/09/19 05:50 Plt Count 139 X10^3/uL (150.0-450.0) L 02/09/19 05:50 MPV 8.2 fL (7.4-11.0) 02/09/19 05:50 Neut % (Auto) 65.8 % (42.0-75.0) 02/09/19 05:50 Lymph % (Auto) 25.6 % (21.0-51.0) 02/09/19 05:50 [place] % (Auto) 6.5 % (0.0-13.0) 02/09/19 05:50 Eos % (Auto) 1.8 % (0.9-2.9) 02/09/19 05:50 Baso % (Auto) 0.3 % (0.2-1.0) 02/09/19 05:50 Neut # (Auto) 3.6 x10^3/uL (2.2-4.8) 02/09/19 05:50 Lymph # (Auto) 1.4 X10^3/uL (1.3-2.9) 02/09/19 05:50 [place] # (Auto) 0.4 x10^3/uL (0.3-0.8) 02/09/19 05:50 Eos # (Auto) 0.1 x10^3/uL (0.0-0.2) 02/09/19 05:50 Baso # (Auto) 0.0 X10^3/uL (0.0-0.1) 02/09/19 05:50 Absolute Nucleated RBC 0.0 /100WBC 02/09/19 05:50 Sodium 140 mmol/L (136-145) 02/09/19 05:50 Corrected Sodium 141 mmol/L (136-145) 02/09/19 05:50 Potassium 3.7 mmol/L (3.5-5.1) 02/09/19 05:50 Chloride 104 mmol/L (98-107) 02/09/19 05:50 Carbon Dioxide 29.3 mmol/L (21-32) 02/09/19 05:50 BUN 11 mg/dL (7-18) 02/09/19 05:50 Creatinine 0.91 mg/dL (0.70-1.30) 02/09/19 05:50 Est GFR (MDRD) Af Amer > 60 (>60) 02/09/19 05:50 Est GFR (MDRD) Non-Af > 60 (>60) 02/09/19 05:50 Glucose 131 mg/dL (65-99) H 02/09/19 05:50 Calcium 9.0 mg/dL (8.5-10.1) 02/09/19 05:50 Corrected Calcium 10.0 mg/dL (8.5-10.1) 02/09/19 05:50 Magnesium 2.2 mg/dL (1.7-2.9) 02/09/19 05:50 Total Bilirubin 0.40 mg/dL (0.2-1.0) 02/09/19 05:50 AST 14 Units/L (15-37) L 02/09/19 05:50 ALT 16 Units/L (12-78) 02/09/19 05:50 Alkaline Phosphatase 60 Units/L (46-116) 02/09/19 05:50 Total Protein 7.1 g/dL (6.4-8.2) 02/09/19 05:50 Albumin 2.8 g/dL (3.4-5.0) L 02/09/19 05:50 Globulin 4.3 g/dL (2.5-4.5) 02/09/19 05:50 Albumin/Globulin Ratio 0.7 Ratio (1.1-2.1) L 02/09/19 05:50 - Plan (1) Bronchopneumonia Status: Acute Plan: 1/2NS AT 75ML/HR, IV FORTAZ, IV LEVAQUIN, RESPIRATORY TX, SUPPLEMENTAL OXYGEN, TUSSIONEX, AND ROBITUSSIN (2) Constipation Status: Acute Qualifiers: Constipation type: unspecified constipation type Qualified Code(s): K59.00 - Constipation, unspecified Plan: MILK OF MAGNESIA 30ML PO QID, CONTINUE TO MONITOR
--- NOTE | 2019-02-09 18:13 | RAD ---
HISTORYSOBSTUDYCHEST, 1 VIEWCOMPARISONDecember 2018FINDINGSThe patient is rotated. The cardiac silhouette is unremarkable . The lungs are clear without focal infiltrate or effusion.IMPRESSIONNo acute cardiopulmonary disease.Electronically signed by: GIOVANNI GREENBERG (Feb 09, 2019 18:13:07)
[2019-02-09] MEDS ORDERED: MERREM VIAL 1,000 MG in NS 100 ML IV 100 ML IV ONE (18:48)
[2019-02-09] MEDS ORDERED: MERREM VIAL ONE (20:15)
[2019-02-09] MEDS ORDERED: NS 100 ML IV + SPIKE MINIBAG* 100 ML IV ONE (20:16)
[2019-02-09] MEDS: ARICEPT TAB 10 MG PEG SCH (20:56)
[2019-02-10] MEDS: XOPENEX 1.25 MG/3 ML NEBULE NEB SCH ×4 (00:15→17:00)
[2019-02-10] MEDS ORDERED: NS 1/2 1000 ML IV 1,000 ML IV ONE ×2 (01:33→15:31)
[2019-02-10] MEDS: VALPROIC ACID Feeding Tube SCH ×3 (05:44→21:13)
[2019-02-10] MEDS: ASTELIN NASAL SPRAY ENOSTRIL SCH ×3 (05:44→21:13)
[2019-02-10 06:07] LABS: BASOPHILS % (AUTO) 0.5 % (0.2-1.0); EOSINOPHILS # (AUTO) 0.2 x10^3/uL (0.0-0.2); EOSINOPHILS % (AUTO) 4.2 % (0.9-2.9); HEMATOCRIT 35.2 % (42.0-54.0); HEMOGLOBIN 11.9 g/dL (13.5-18.0); LYMPHOCYTES # (AUTO) 1.6 X10^3/uL (1.3-2.9); MEAN CORPUSCULAR HGB CONC 33.7 g/dL (33.0-35.0); MEAN PLATELET VOLUME 8.5 fL (7.4-11.0); MONOCYTES # (AUTO) 0.3 x10^3/uL (0.3-0.8); MONOCYTES % (AUTO) 5.8 % (0.0-13.0); NEUTROPHILS # (AUTO) 3.5 x10^3/uL (2.2-4.8); NEUTROPHILS % (AUTO) 61.5 % (42.0-75.0); PLATELET COUNT 146 X10^3/uL (150.0-450.0); RED BLOOD COUNT 3.95 X10^6/uL (4.7-6.0); RED CELL DISTRIBUTION WIDTH 14.9 % (11.6-16.5); WHITE BLOOD COUNT 5.7 X10^3/uL (3.6-10.0)
[2019-02-10 06:35] LABS: ALANINE AMINOTRANSFERASE 13 Units/L (12-78); ALBUMIN 2.8 g/dL (3.4-5.0); ALKALINE PHOSPHATASE 61 Units/L (46-116); ASPARTATE AMINO TRANSFERASE 15 Units/L (15-37); BLOOD UREA NITROGEN 10 mg/dL (7-18); CALCIUM 9.4 mg/dL (8.5-10.1); CARBON DIOXIDE 28.3 mmol/L (21-32); CHLORIDE 106 mmol/L (98-107); COR CA(FOR HYPOALB) 10.4 mg/dL (8.5-10.1); CREATININE 0.91 mg/dL (0.70-1.30); SODIUM 141 mmol/L (136-145); TOTAL PROTEIN 7.2 g/dL (6.4-8.2); eGFR NON BLACK RACES > 60 (>60)
[2019-02-10] MEDS: PULMICORT NEB TX 0.5 MG NEB SCH ×2 (08:02→20:40)
[2019-02-10] MEDS: COLACE SYRUP 100 MG UDC PEG SCH (09:04)
[2019-02-10] MEDS: ROBITUSSIN DM PO SCH ×4 (09:05→21:14)
[2019-02-10] MEDS: XANAX PEG PRN ×2 (09:05→21:15)
[2019-02-10] MEDS: EFFEXOR TAB 75 MG (BID DOSING) PO SCH (09:05)
[2019-02-10] MEDS: GEODON PO SCH ×2 (09:05→21:12)
[2019-02-10] MEDS: MILK OF MAGNESIA PEG SCH ×5 (09:05→21:15)
[2019-02-10] MEDS: SINGULAIR TAB 10 MG PEG SCH (09:05)
[2019-02-10] MEDS: LOPRESSOR TAB 25 MG PEG SCH ×3 (09:05→21:15)
[2019-02-10] MEDS: LASIX PEG SCH ×2 (09:06→21:15)
[2019-02-10] MEDS: NAMENDA TAB 10 MG PEG SCH ×2 (09:06→21:14)
[2019-02-10] MEDS: VSL#3 PO SCH (09:06)
[2019-02-10] MEDS: FLONASE NASAL SPRAY ENOSTRIL SCH ×2 (09:07→21:17)
[2019-02-10] MEDS: THIORIDAZINE 50 MG Feeding Tube SCH (09:10)
[2019-02-10] MEDS: MERREM VIAL 1 G in NS 100 ML IV + SPIKE MINIBAG* 100 ML IV SCH ×3 (09:16→21:13)
[2019-02-10] MEDS: NS 1/2 1000 ML IV 1,000 ML IV SCH (15:40)
[2019-02-10] MEDS: ARICEPT TAB 10 MG PEG SCH (21:11)
[2019-02-11] MEDS: XOPENEX 1.25 MG/3 ML NEBULE NEB SCH ×2 (01:01→05:09)
[2019-02-11] MEDS: ASTELIN NASAL SPRAY ENOSTRIL SCH ×2 (05:18→13:46)
[2019-02-11 06:10] LABS: BASOPHILS % (AUTO) 0.4 % (0.2-1.0); EOSINOPHILS # (AUTO) 0.2 x10^3/uL (0.0-0.2); EOSINOPHILS % (AUTO) 4.6 % (0.9-2.9); HEMATOCRIT 33.7 % (42.0-54.0); HEMOGLOBIN 11.5 g/dL (13.5-18.0); LYMPHOCYTES # (AUTO) 1.3 X10^3/uL (1.3-2.9); LYMPHOCYTES % (AUTO) 26.8 % (21.0-51.0); MEAN CORPUSCULAR HEMOGLOBIN 29.9 pg (27.0-34.0); MEAN PLATELET VOLUME 8.2 fL (7.4-11.0); MONOCYTES # (AUTO) 0.4 x10^3/uL (0.3-0.8); MONOCYTES % (AUTO) 8.4 % (0.0-13.0); NEUTROPHILS % (AUTO) 59.8 % (42.0-75.0); PLATELET COUNT 152 X10^3/uL (150.0-450.0); RED BLOOD COUNT 3.83 X10^6/uL (4.7-6.0); RED CELL DISTRIBUTION WIDTH 14.9 % (11.6-16.5)
[2019-02-11] MEDS ORDERED: NS 1/2 1000 ML IV 1,000 ML IV ONE (06:10)
[2019-02-11 06:15] LABS: ALANINE AMINOTRANSFERASE 12 Units/L (12-78); ALBUMIN 2.7 g/dL (3.4-5.0); ALKALINE PHOSPHATASE 61 Units/L (46-116); ASPARTATE AMINO TRANSFERASE 15 Units/L (15-37); BLOOD UREA NITROGEN 11 mg/dL (7-18); CALCIUM 8.9 mg/dL (8.5-10.1); CARBON DIOXIDE 28.3 mmol/L (21-32); CHLORIDE 105 mmol/L (98-107); COR CA(FOR HYPOALB) 9.9 mg/dL (8.5-10.1); CREATININE 0.93 mg/dL (0.70-1.30); SODIUM 140 mmol/L (136-145); TOTAL PROTEIN 6.8 g/dL (6.4-8.2); eGFR NON BLACK RACES > 60 (>60)
[2019-02-11] MEDS: VALPROIC ACID Feeding Tube SCH ×2 (06:22→13:47)
[2019-02-11] MEDS: MERREM VIAL 1 G in NS 100 ML IV + SPIKE MINIBAG* 100 ML IV SCH (06:22)
[2019-02-11] MEDS: NS 1/2 1000 ML IV 1,000 ML IV SCH ×2 (06:22→06:25)
--- NOTE | 2019-02-11 08:44 | PCM.PROG ---
Progress Note - Progress Note for Day of Date of Exam: 02/10/19 - Subjective Subjective: WAS ADMITTED FOR BRONCHOPNEUMONIA. TODAY, HE IS ALERT, LYING IN BED ON MORNING ROUNDS. HE NODS HEAD AND SMILES TO VERBAL STIMULI. HE IS ASPHASIC. ON EXAMINATION, HEART IS REGULAR IN RATE AND RHYTHM. BILATERAL LUNGS ARE NOTED WITH SCATTERED WHEEZING. ABDOMEN IS ROUND, SOFT, AND NON-TENDER WITH NORMAL BOWEL SOUNDS NOTED IN ALL QUADRANTS. HIS VITALS THIS MORNING ARE: 97.6-54-18-96%-105/59. LABS WERE OBTAINED. ABNORMAL LAB VALUES INCLUDE THE FOLLOWING: RBC 3.95, HGB 11.9, HCT 35.2, PLT COUNT 146, GLUCOSE 107, ALBUMIN 2.8. SPUTUM CULTURE REVEALS GROWTH OF PROTEUS MIRABILIS. IT IS RESISTENT TO THE FORTAZ AND LEVAQUIN THAT HE IS CURRENTLY RECEIVING. TODAY, WE WILL DISCONTINUE THE FORTAZ AND LEVAQUIN AND START MEROPENEM. OTHERWISE, WE PLAN TO FOLLOW UP WITH AM LABS AND CHEST XRAY AND CONTINUE TO MONITOR. - Past Medical Family Social History Past Med/Fam/Surg Hx: No changes since H&P Allergies: Allergies No Known Drug Allergies Allergy (Verified 12/31/18 15:29) - Review of Systems ROS: No change since H&P - Vital Signs and I&O's Vital Signs: Temperature 97.8 F Pulse Rate [Apical] 56 Pulse Rate 63 Respiratory Rate 18 Blood Pressure [Left Arm] 116/55 Blood Pressure [Right Arm] 104/59 Blood Pressure 123/67 O2 Sat by Pulse Oximetry 100 Intake and Output: Intake & Output 02/08/19 02/09/19 02/10/19 02/11/19 11:59 11:59 11:59 11:59 Intake Total 0 / 2130 710 / 710 2520 / 2520 2190 / 2190 Output Total 200 / 200 Balance 1929 / 0 710 / 710 2520 / 2520 2189 / 2189 - Physical Exam Oriented: Person Eyes: Normal Ear: Normal Nose: Normal Throat: Normal Cardiovascular: Normal : Normal Auscultation: Bowel Sounds: Normal Tenderness: Normal Skin: Normal Musculoskeletal: Normal Psychiatric: Normal Mood Description: Calm Affect: Normal Speech Pattern: Aphasic - Laboratory and Diagnostics Result Diagrams: 02/11/19 05:20 02/11/19 05:20 Labs: Laboratory WBC 5.0 X10^3/uL (3.6-10.0) 02/11/19 05:20 RBC 3.83 X10^6/uL (4.7-6.0) L 02/11/19 05:20 Hgb 11.5 g/dL (13.5-18.0) L 02/11/19 05:20 Hct 33.7 % (42.0-54.0) L 02/11/19 05:20 MCV 88.0 fL (80.0-100.0) 02/11/19 05:20 MCH 29.9 pg (27.0-34.0) 02/11/19 05:20 MCHC 34.0 g/dL (33.0-35.0) 02/11/19 05:20 RDW 14.9 % (11.6-16.5) 02/11/19 05:20 Plt Count 152 X10^3/uL (150.0-450.0) 02/11/19 05:20 MPV 8.2 fL (7.4-11.0) 02/11/19 05:20 Neut % (Auto) 59.8 % (42.0-75.0) 02/11/19 05:20 Lymph % (Auto) 26.8 % (21.0-51.0) 02/11/19 05:20 [place] % (Auto) 8.4 % (0.0-13.0) 02/11/19 05:20 Eos % (Auto) 4.6 % (0.9-2.9) H 02/11/19 05:20 Baso % (Auto) 0.4 % (0.2-1.0) 02/11/19 05:20 Neut # (Auto) 3.0 x10^3/uL (2.2-4.8) 02/11/19 05:20 Lymph # (Auto) 1.3 X10^3/uL (1.3-2.9) 02/11/19 05:20 [place] # (Auto) 0.4 x10^3/uL (0.3-0.8) 02/11/19 05:20 Eos # (Auto) 0.2 x10^3/uL (0.0-0.2) 02/11/19 05:20 Baso # (Auto) 0.0 X10^3/uL (0.0-0.1) 02/11/19 05:20 Absolute Nucleated RBC 0.1 /100WBC 02/11/19 05:20 Sodium 140 mmol/L (136-145) 02/11/19 05:20 Corrected Sodium TNP 02/11/19 05:20 Potassium 4.1 mmol/L (3.5-5.1) 02/11/19 05:20 Chloride 105 mmol/L (98-107) 02/11/19 05:20 Carbon Dioxide 28.3 mmol/L (21-32) 02/11/19 05:20 BUN 11 mg/dL (7-18) 02/11/19 05:20 Creatinine 0.93 mg/dL (0.70-1.30) 02/11/19 05:20 Est GFR (MDRD) Af Amer > 60 (>60) 02/11/19 05:20 Est GFR (MDRD) Non-Af > 60 (>60) 02/11/19 05:20 Glucose 94 mg/dL (65-99) 02/11/19 05:20 Calcium 8.9 mg/dL (8.5-10.1) 02/11/19 05:20 Corrected Calcium 9.9 mg/dL (8.5-10.1) 02/11/19 05:20 Magnesium 2.2 mg/dL (1.7-2.9) 02/09/19 05:50 Total Bilirubin 0.30 mg/dL (0.2-1.0) 02/11/19 05:20 AST 15 Units/L (15-37) 02/11/19 05:20 ALT 12 Units/L (12-78) 02/11/19 05:20 Alkaline Phosphatase 61 Units/L (46-116) 02/11/19 05:20 Total Protein 6.8 g/dL (6.4-8.2) 02/11/19 05:20 Albumin 2.7 g/dL (3.4-5.0) L 02/11/19 05:20 Globulin 4.1 g/dL (2.5-4.5) 02/11/19 05:20 Albumin/Globulin Ratio 0.7 Ratio (1.1-2.1) L 02/11/19 05:20 - Plan (1) Bronchopneumonia Status: Acute Plan: 1/2NS AT 75ML/HR, IV MEROPENEM, RESPIRATORY TX, SUPPLEMENTAL OXYGEN, TUSSIONEX, AND ROBITUSSIN (2) Constipation Status: Acute Qualifiers: Constipation type: unspecified constipation type Qualified Code(s): K59.00 - Constipation, unspecified Plan: MILK OF MAGNESIA 30ML PO QID, CONTINUE TO MONITOR
[2019-02-11] MEDS: GEODON PO SCH (08:52)
[2019-02-11] MEDS: COLACE SYRUP 100 MG UDC PEG SCH (08:52)
[2019-02-11] MEDS: MILK OF MAGNESIA PEG SCH ×2 (08:52→13:46)
[2019-02-11] MEDS: ROBITUSSIN DM PO SCH ×2 (08:52→13:46)
[2019-02-11] MEDS: LOPRESSOR TAB 25 MG PEG SCH ×2 (08:53→08:55)
[2019-02-11] MEDS: NAMENDA TAB 10 MG PEG SCH (08:53)
[2019-02-11] MEDS: LASIX PEG SCH (08:53)
[2019-02-11] MEDS: XANAX PEG PRN (08:53)
[2019-02-11] MEDS: SINGULAIR TAB 10 MG PEG SCH (08:55)
[2019-02-11] MEDS: VSL#3 PO SCH (08:55)
[2019-02-11] MEDS: EFFEXOR TAB 75 MG (BID DOSING) PO SCH (08:55)
[2019-02-11] MEDS: FLONASE NASAL SPRAY ENOSTRIL SCH (08:56)
[2019-02-11] MEDS: THIORIDAZINE 50 MG Feeding Tube SCH (09:03)
[2019-02-11] MEDS: PULMICORT NEB TX 0.5 MG NEB SCH (09:09)
--- NOTE | 2019-02-11 09:40 | RAD ---
HISTORYShortness of breathSTUDYCHEST, 1 [id number]/21/2019FINDINGSThe heart is within normal limits in size. The lung desai are free of acute infiltrates. No pleural effusions are identified. The bony thorax is unremarkable.IMPRESSIONNo significant abnormality identifiedElectronically signed by: CALLUM MARTINEZ (Feb 11, 2019 09:38:46)
[2019-02-11 12:14] VITALS: BP 134/95
== END 2019-02-11 14:35 | DRG 179 ==
LOC: MED/SURG 20:32
PROVIDERS: ADMIT Internal Medicine; ATTEND Internal Medicine
CPT/HCPCS: 36415; 71010; 71045; 74000; 74018; 80053; 83735; 84153; 85025; 94640; 94760; 96365; 96374; 97162; 97166; A4222; J0713; J1956; J2185; J7050; J7626

== ENCOUNTER 2019-05-17 08:19 | Inpatient (IN) ==
--- NOTE | 2019-05-17 08:38 | DR.EXTPAIN ---
HPI Time seen Time Seen by Provider: 05/17/19 08:35 HPI Comment HPI Comment: PATIENT IS 74YR OLD MALE FROM [facility] HERE IN ER FOR LOW OXYGEN SATURATION AND TURNING COLORS IN THE LONGTERM. HE WAS IN HIS USUAL STATE OF HEALTH PRIOR TO EPISODE. DENIES TRAUMA. OXYGEN SATURATION IS IN MID 90S ON 2L OXYGEN IN ER. HIS COLOR IS BACK TO NORMAL. Complaint/Symptoms Chief Complaint Doctor Comments: PATIENT NOTED TO N BOSS WITH LOW OXYGEN SATURATION. Nurses notes reviewed Nurses Notes Review: Yes Source History Provided: Patient and Penitentiary Mode of arrival Mode of Arrival: Stretcher Context History of: Arthritis Associated signs and symptoms Associated Signs and Symptoms: Shortness of Breath PMH PMH Past Medical History: Anxiety, COPD, CVA, Dementia, Depression, Diabetes, Dyslipidemia, GERD, Hypertension and Schizophrenia Past Surgical History: Yes Surgical History: Cholecystectomy, Ortho Surgery and Other Family History Family Medical History: Cancer Social History Do you use any recreational Drugs:: No Travel Risk Coronavirus risk:travel/contact w/high risk person: No Has patient experienced Coronavirus symptoms: No Infectious screening Isolation: Standard ROS Review of Systems Constitutional: No Symptoms Reported, See HPI, Weakness and Other (PATIENT DO NOT TALK SINTROKE FEW YEARS AGO.) Eyes: No Symptoms Reported; negative See HPI ENTM: No Symptoms Reported and See HPI; negative Nose Pain and Nose Discharge Respiratoy: See HPI and Short of Breath; negative Wheezing Cardiovascular: No Symptoms Reported and See HPI; negative Chest Pain Gastrointestinal/Abdominal: No Symptoms Reported and See HPI; negative Abdominal Pain, Diarrhea and Vomiting Genitourinary: No Symptoms Reported, See HPI and Other (URINARY INCONTINENCE.) Neurological: No Symptoms Reported, See HPI, Pre-existing Deficit, Weakness and Speech Problem (APHASIA.) Musculoskeletal: No Symptoms Reported and See HPI Integumentary: No Symptoms Reported and See HPI Hematologic/Lymphatic: See HPI and Easy Bruising Endocrine: No Symptoms Reported and See HPI Psychiatric: See HPI and Depression All Other Systems: Reviewed and Negative PE Vital Signs Vitals: Temperature 97.7 F Pulse Rate [Left] 60 Pulse Rate 55 Respiratory Rate 18 Blood Pressure [Left Arm] 95/53 Blood Pressure 89/59 O2 Sat by Pulse Oximetry 98 General Limitations: No Limitations General Appearance: Alert and In No Apparent Distress Head Head Exam: Normal Inspection Eyes Eye exam: Normal Appearance and PERRL; negative Scleral Icterus and Conjunctival Injection ENT ENT Exam: Normal Exam, Normal Oropharynx, Normal External Ear Exam and TM's Normal Bilaterally Neck Neck Exam: Normal Inspection and Trachea Midline; negative Tenderness and Lymph adenopathy Chest Chest Inspection: Normal Inspection; negative Symmetric Chest Wall Rise, Tenderness and Abscess Respiratory Respiratory Exam: Normal Lung Sounds Bilat Respiratory Exam: Bilateral: Rhonchi and Lower: Rhonchi Cardiovascular Cardiovascular Exam: Normal Rhythm and Irregular Rhythm Abdominal Exam Abdominal Exam: Normal Inspection, Normal Bowel Sounds and Soft; negative Tenderness Extremities Extremities Exam: Normal Inspection Back Back Exam: Normal Inspection; negative (R) CVA Tenderness and (L) CVA Tenderness Neurological Neurological Exam: Alert and Other (CONPREHEND BUT DO NOT TALK.); negative Motor Sensory Deficit Psychiatric Psychiatric Exam: Normal Mood, Depressed and Flat Affect Skin Skin Exam: Warm, Dry, Intact and Normal Color MDM Differential Diagnosis Differential Diagnosis: Other (BRONCHITIS, PNEUMONIA, UTI, INFLENZA, STREP INFECTION, NM.) COURSE Treatment Treatment: SEE ORDERS. Consultation Consultation Comments: DISCUSSED PATIENT WITH DR. VELÁZQUEZ. HE WILL ADMIT PATIENT. Education/Counseling Education/Counseling: Patient and Family Educated On: Diagnosis ROR Labs Reviewed Laboratory Results Reviewed?: Yes Result Diagrams: 05/23/19 04:42 05/23/19 04:42 Laboratory: 05/17/19 12:47 Blood Blood Culture - Final 05/17/19 12:42 Blood Blood Culture - Final 05/17/19 16:55 Sputum - Expectorated Sputum Sputum Culture - Final Morganella Morganii 05/17/19 16:55 Sputum - Expectorated Sputum - Final WBC 7.1 X10^3/uL (3.6-10.0) 05/19/19 05:30 RBC 3.54 X10^6/uL (4.7-6.0) L 05/19/19 05:30 Hgb 11.1 g/dL (13.5-18.0) L 05/19/19 05:30 Hct 31.7 % (42.0-54.0) L 05/19/19 05:30 MCV 89.6 fL (80.0-100.0) 05/19/19 05:30 MCH 31.4 pg (27.0-34.0) 05/19/19 05:30 MCHC 35.0 g/dL (33.0-35.0) 05/19/19 05:30 RDW 14.5 % (11.6-16.5) 05/19/19 05:30 Plt Count 108 X10^3/uL (150.0-450.0) L 05/19/19 05:30 MPV 8.9 fL (7.4-11.0) 05/19/19 05:30 Neut % (Auto) 66.7 % (42.0-75.0) 05/19/19 05:30 Lymph % (Auto) 22.1 % (21.0-51.0) 05/19/19 05:30 [place] % (Auto) 9.8 % (0.0-13.0) 05/19/19 05:30 Eos % (Auto) 1.0 % (0.9-2.9) 05/19/19 05:30 Baso % (Auto) 0.4 % (0.2-1.0) 05/19/19 05:30 Neut # (Auto) 4.8 x10^3/uL (2.2-4.8) 05/19/19 05:30 Lymph # (Auto) 1.6 X10^3/uL (1.3-2.9) 05/19/19 05:30 [place] # (Auto) 0.7 x10^3/uL (0.3-0.8) 05/19/19 05:30 Eos # (Auto) 0.1 x10^3/uL (0.0-0.2) 05/19/19 05:30 Baso # (Auto) 0.0 X10^3/uL (0.0-0.1) 05/19/19 05:30 Absolute Nucleated RBC 0.0 /100WBC 05/19/19 05:30 Sodium 140 mmol/L (136-145) 05/19/19 05:30 Corrected Sodium TNP 05/19/19 05:30 Potassium 4.1 mmol/L (3.5-5.1) 05/19/19 05:30 Chloride 107 mmol/L (98-107) 05/19/19 05:30 Carbon Dioxide 27.5 mmol/L (21-32) 05/19/19 05:30 BUN 16 mg/dL (7-18) 05/19/19 05:30 Creatinine 0.92 mg/dL (0.70-1.30) 05/19/19 05:30 Est GFR (MDRD) Af Amer > 60 (>60) 05/19/19 05:30 Est GFR (MDRD) Non-Af > 60 (>60) 05/19/19 05:30 Glucose 89 mg/dL (65-99) 05/19/19 05:30 Lactic Acid 1.0 mmol/L (0.4-2.0) 05/17/19 12:42 Calcium 8.8 mg/dL (8.5-10.1) 05/19/19 05:30 Corrected Calcium 10.1 mg/dL (8.5-10.1) 05/19/19 05:30 Magnesium 2.0 mg/dL (1.7-2.9) 05/18/19 06:06 Total Bilirubin 0.60 mg/dL (0.2-1.0) 05/19/19 05:30 AST 16 Units/L (15-37) 05/19/19 05:30 ALT 12 Units/L (12-78) 05/19/19 05:30 Alkaline Phosphatase 38 Units/L (46-116) L 05/19/19 05:30 Creatine Kinase 80 Units/L (39-308) 05/18/19 06:06 CK-MB (CK-2) < 1.0 ng/mL (0-4.0) 05/18/19 06:06 CK/CKMB % Calc 1.3 % (<4) 05/18/19 06:06 Troponin I < 0.02 ng/mL (0-1.5) 05/18/19 06:06 Total Protein 6.2 g/dL (6.4-8.2) L 05/19/19 05:30 Albumin 2.4 g/dL (3.4-5.0) L 05/19/19 05:30 Globulin 3.8 g/dL (2.5-4.5) 05/19/19 05:30 Albumin/Globulin Ratio 0.6 Ratio (1.1-2.1) L 05/19/19 05:30 Specimen Type Catherized urine 05/17/19 12:12 Urine Color Yellow (YELLOW) 05/17/19 12:12 Urine Appearance Hazy (CLEAR) 05/17/19 12:12 Urine pH 9.0 (5.0 - 8.0) 05/17/19 12:12 Ur Specific [place] 1.015 (1.000-1.030) 05/17/19 12:12 Urine Protein Negative (NEGATIVE) 05/17/19 12:12 Urine Glucose (UA) Negative (NEGATIVE) 05/17/19 12:12 Urine Ketones 1+ (NEGATIVE) 05/17/19 12:12 Urine Occult Blood Negative (NEGATIVE) 05/17/19 12:12 Urine Nitrite Negative (NEGATIVE) 05/17/19 12:12 Urine Bilirubin Negative (NEGATIVE) 05/17/19 12:12 Urine Urobilinogen 2+ (NORMAL) 05/17/19 12:12 Ur Leukocyte Esterase 1+ (NEGATIVE) 05/17/19 12:12 Urine RBC None seen /HPF (0-3) 05/17/19 12:12 Urine WBC 0-2 /HPF (0-5) 05/17/19 12:12 Ur Squamous Epith Cells Negative /HPF (NEGATIVE) 05/17/19 12:12 Urine Bacteria Negative /HPF (NEGATIVE) 05/17/19 12:12 Ur Culture Indicated? No/not indicated 05/17/19 12:12 RSV Nasal Swab Negative (NEGATIVE) 05/17/19 08:45 Influenza Type A (PCR) Negative (NEGATIVE) 05/17/19 08:45 Influenza Type B (PCR) Negative (NEGATIVE) 05/17/19 08:45 S. pyogenes (TEM-PCR) Not detected (NOT DETECT) 05/17/19 08:45 XRAY XRAY Interpreted by: Radiologist EKG Rate: 94 Rhythm: Afib Block: IVCD Hypertrophy: None ST: Normal Opioid Opioid Risk Tool Age (Larry box if 16-45): No History of Preadolescent Sexual Abuse: No Total: 0 Total Score Risk Category: Low Risk Copyright: Hang CALLAHAN predicting aberrant behaviors Diagnosis Discharge Problem: Bronchitis, Acute febrile illness Instructions Forms: Excuse From Work Precautions for COVID19 Patient Portal Social Distancing
[2019-05-17 08:43] VITALS: BMI 25.7
--- NOTE | 2019-05-17 09:14 | RAD ---
HISTORYLOW O2 SATSTUDYCHEST, 1 VIEWCOMPARISONChest x-ray dated March 29, 2019.FINDINGSThe trachea is midline. The cardiac silhouette is unremarkable. Patchy right lower lobe airspace disease. Prominent perihilar vasculature appears unchanged. Chronic emphysematous changes. No significant pleural effusion or pneumothorax.. The bony thorax is unremarkable.IMPRESSIONPatchy right lower lobe airspace disease. Recommend following to resolution.Electronically signed by: KEATON HURD (May 17, 2019 09:13:20)
[2019-05-17 09:21] LABS: RSV AG DETECTION NEGATIVE (NEGATIVE)
[2019-05-17 09:30] LABS: STREP A BY PCR NOT DETECTED (NOT DETECT)
[2019-05-17 09:38] LABS: BASOPHILS % (AUTO) 0.4 % (0.2-1.0); EOSINOPHILS % (AUTO) 0.5 % (0.9-2.9); HEMATOCRIT 40.5 % (42.0-54.0); HEMOGLOBIN 14.1 g/dL (13.5-18.0); LYMPHOCYTES # (AUTO) 0.5 X10^3/uL (1.3-2.9); LYMPHOCYTES % (AUTO) 7.1 % (21.0-51.0); MEAN CORPUSCULAR HEMOGLOBIN 30.9 pg (27.0-34.0); MEAN CORPUSCULAR HGB CONC 34.8 g/dL (33.0-35.0); MEAN CORPUSCULAR VOLUME 88.7 fL (80.0-100.0); MEAN PLATELET VOLUME 9.1 fL (7.4-11.0); MONOCYTES # (AUTO) 0.4 x10^3/uL (0.3-0.8); MONOCYTES % (AUTO) 6.2 % (0.0-13.0); NEUTROPHILS # (AUTO) 6.1 x10^3/uL (2.2-4.8); NEUTROPHILS % (AUTO) 85.8 % (42.0-75.0); PLATELET COUNT 117 X10^3/uL (150.0-450.0); RED BLOOD COUNT 4.57 X10^6/uL (4.7-6.0); RED CELL DISTRIBUTION WIDTH 14.6 % (11.6-16.5); WHITE BLOOD COUNT 7.1 X10^3/uL (3.6-10.0)
[2019-05-17 10:01] LABS: BLOOD UREA NITROGEN 17 mg/dL (7-18); CALCIUM 9.3 mg/dL (8.5-10.1); CARBON DIOXIDE 30.4 mmol/L (21-32); CHLORIDE 100 mmol/L (98-107); CREATININE 1.06 mg/dL (0.70-1.30); SODIUM 136 mmol/L (136-145); TROPONIN I < 0.02 ng/mL (0-1.5); eGFR NON BLACK RACES > 60 (>60)
[2019-05-17 10:02] LABS: ALANINE AMINOTRANSFERASE 23 Units/L (12-78); ALBUMIN 3.5 g/dL (3.4-5.0); ALKALINE PHOSPHATASE 62 Units/L (46-116); ASPARTATE AMINO TRANSFERASE 18 Units/L (15-37); CKMB % 1.5 % (<4); CREATINE KINASE 65 Units/L (39-308); CREATINE KINASE MB < 1.0 ng/mL (0-4.0); TOTAL PROTEIN 7.4 g/dL (6.4-8.2)
[2019-05-17 12:24] LABS: BILIRUBIN,URINE NEGATIVE (NEGATIVE); BLOOD/HEMOGLOBIN,URINE NEGATIVE (NEGATIVE); GLUCOSE, URINE NEGATIVE (NEGATIVE); KETONES,URINE 1+ (NEGATIVE); LEUKOCYTE ESTERASE ,URINE 1+ (NEGATIVE); NITRITES,URINE NEGATIVE (NEGATIVE); PROTEIN,URINE NEGATIVE (NEGATIVE); UROBILINOGEN,URINE 2+ (NORMAL)
[2019-05-17 12:28] LABS: APPEARANCE,URINE HAZY (CLEAR); BACTERIA,URINE NEGATIVE /HPF (NEGATIVE); COLOR,URINE YELLOW (YELLOW); RBC,URINE NONE SEEN /HPF (0-3); SQUAMOUS EPITHELIAL CELL,UR NEGATIVE /HPF (NEGATIVE)
[2019-05-17] MEDS ORDERED: FORTAZ or TAZICEF VIAL INJ ONE (13:09)
[2019-05-17] MEDS ORDERED: NS 100 ML IV 100 ML IV ONE ×2 (13:09→13:16)
[2019-05-17] MEDS: FORTAZ or TAZICEF VIAL INJ 2 G in NS 100 ML IV + SPIKE MINIBAG* 100 ML IV ONE (13:25)
[2019-05-17] MEDS ORDERED: TYLENOL ELIXIR 325 MG UDC PO PRN (14:07)
[2019-05-17] MEDS ORDERED: TYLENOL ELIXIR 325 MG UDC ONE (14:09)
[2019-05-17] MEDS ORDERED: DUONEB 0.5 MG/3 MG (3 mL) NEB PRN ×2 (15:17→18:49)
[2019-05-17] MEDS ORDERED: SALINE 3% 15 ML NEB TX NEB ONE (16:12)
[2019-05-17] MEDS: FORTAZ or TAZICEF VIAL INJ 1 G in NS 100 ML IV + SPIKE MINIBAG* 100 ML IV SCH ×2 (16:39→22:10)
[2019-05-17] MEDS ORDERED: XANAX PEG SCH (18:49)
[2019-05-17] MEDS ORDERED: DUONEB 0.5 MG/3 MG (3 mL) NEB SCH (18:49)
[2019-05-17 19:27] LABS: CKMB % 1.6 % (<4); CREATINE KINASE 61 Units/L (39-308); CREATINE KINASE MB < 1.0 ng/mL (0-4.0); TROPONIN I < 0.02 ng/mL (0-1.5)
[2019-05-17] MEDS: PULMICORT NEB TX 0.5 MG NEB SCH (20:25)
[2019-05-17] MEDS: PROVENTIL NEB TX 0.083% 2.5MG/ 3ML NEB SCH (20:25)
[2019-05-17] MEDS ORDERED: PATIENT'S HOME MEDICATION (Budesonide-Formoterol 2 PUFF) IN SCH (21:00)
[2019-05-17] MEDS ORDERED: ASTELIN NASAL SPRAY ENOSTRIL ONE (21:03)
[2019-05-17] MEDS: XANAX PEG SCH (22:08)
[2019-05-17] MEDS: ELIQUIS NG SCH (22:09)
[2019-05-17] MEDS: LOPRESSOR TAB 25 MG NG SCH (22:09)
[2019-05-17] MEDS: GEODON PO SCH (22:09)
[2019-05-17] MEDS: ARICEPT TAB 10 MG PEG SCH (22:09)
[2019-05-17] MEDS: LASIX NG SCH (22:10)
[2019-05-17] MEDS: FLONASE NASAL SPRAY ENOSTRIL SCH (22:11)
[2019-05-17] MEDS ORDERED: NS 250 ML IV 250 ML IV ONE (22:13)
[2019-05-17] MEDS: ASTELIN NASAL SPRAY ENOSTRIL SCH (22:33)
[2019-05-17] MEDS: ARTIFICIAL TEARS OP SCH (22:34)
[2019-05-17] MEDS: VALPROIC ACID Feeding Tube SCH (22:34)
[2019-05-17] MEDS: NAMENDA TAB 10 MG PO SCH (22:35)
[2019-05-17] MEDS: LACTOSE REDUCED FOOD WITH FIBR feeding tube SCH (22:35)
[2019-05-18 01:42] LABS: CKMB % 1.4 % (<4); CREATINE KINASE 70 Units/L (39-308); CREATINE KINASE MB < 1.0 ng/mL (0-4.0); TROPONIN I < 0.02 ng/mL (0-1.5)
[2019-05-18] MEDS: LACTOSE REDUCED FOOD WITH FIBR feeding tube SCH ×6 (02:26→22:00)
[2019-05-18] MEDS: ASTELIN NASAL SPRAY ENOSTRIL SCH ×3 (05:53→22:00)
[2019-05-18] MEDS: FORTAZ or TAZICEF VIAL INJ 1 G in NS 100 ML IV + SPIKE MINIBAG* 100 ML IV SCH ×3 (05:55→21:05)
[2019-05-18] MEDS: VALPROIC ACID Feeding Tube SCH ×3 (05:55→21:09)
[2019-05-18 06:19] LABS: BASOPHILS # (AUTO) 0.1 X10^3/uL (0.0-0.1); BASOPHILS % (AUTO) 0.8 % (0.2-1.0); HEMATOCRIT 36.2 % (42.0-54.0); HEMOGLOBIN 12.4 g/dL (13.5-18.0); LYMPHOCYTES # (AUTO) 1.4 X10^3/uL (1.3-2.9); LYMPHOCYTES % (AUTO) 11.3 % (21.0-51.0); MEAN CORPUSCULAR HGB CONC 34.2 g/dL (33.0-35.0); MEAN CORPUSCULAR VOLUME 87.7 fL (80.0-100.0); MEAN PLATELET VOLUME 8.7 fL (7.4-11.0); MONOCYTES # (AUTO) 0.4 x10^3/uL (0.3-0.8); MONOCYTES % (AUTO) 3.3 % (0.0-13.0); NEUTROPHILS # (AUTO) 10.6 x10^3/uL (2.2-4.8); NEUTROPHILS % (AUTO) 84.6 % (42.0-75.0); PLATELET COUNT 128 X10^3/uL (150.0-450.0); RED BLOOD COUNT 4.13 X10^6/uL (4.7-6.0); RED CELL DISTRIBUTION WIDTH 14.5 % (11.6-16.5); WHITE BLOOD COUNT 12.5 X10^3/uL (3.6-10.0)
--- NOTE | 2019-05-18 06:34 | RAD ---
CHEST, 1 VIEWHistory: SOBComparison: 05/17/2019Findings: Cardiac silhouette is normal in size. There are persistent but improving right basilar opacities. No new infiltrates are identified. No significant pleural effusion or pneumothorax.Impression: Persistent but improving right basilar airspace disease.Electronically signed by: NOHEMI PADRON (May 18, 2019 06:32:52)
[2019-05-18 06:44] LABS: ALANINE AMINOTRANSFERASE 19 Units/L (12-78); ALKALINE PHOSPHATASE 49 Units/L (46-116); ASPARTATE AMINO TRANSFERASE 17 Units/L (15-37); BLOOD UREA NITROGEN 18 mg/dL (7-18); CALCIUM 8.9 mg/dL (8.5-10.1); CARBON DIOXIDE 26.6 mmol/L (21-32); CHLORIDE 102 mmol/L (98-107); CKMB % 1.3 % (<4); COR CA(FOR HYPOALB) 9.7 mg/dL (8.5-10.1); COR NA(FOR HYPERGLY) 136 mmol/L (136-145); CREATINE KINASE 80 Units/L (39-308); CREATINE KINASE MB < 1.0 ng/mL (0-4.0); CREATININE 1.04 mg/dL (0.70-1.30); SODIUM 135 mmol/L (136-145); TOTAL PROTEIN 7.1 g/dL (6.4-8.2); TROPONIN I < 0.02 ng/mL (0-1.5); eGFR NON BLACK RACES > 60 (>60)
[2019-05-18] MEDS: PROVENTIL NEB TX 0.083% 2.5MG/ 3ML NEB SCH ×2 (08:18→21:25)
[2019-05-18] MEDS: PULMICORT NEB TX 0.5 MG NEB SCH ×2 (08:18→21:26)
[2019-05-18] MEDS: LASIX NG SCH ×2 (10:06→21:03)
[2019-05-18] MEDS: LOPRESSOR TAB 25 MG NG SCH ×2 (10:07→21:03)
[2019-05-18] MEDS: NAMENDA TAB 10 MG NG SCH (10:07)
[2019-05-18] MEDS: SINGULAIR TAB 10 MG NG SCH (10:07)
[2019-05-18] MEDS: GEODON PO SCH ×2 (10:07→21:02)
[2019-05-18] MEDS: PROSCAR PO SCH (10:08)
[2019-05-18] MEDS: ELIQUIS NG SCH ×2 (10:08→21:04)
[2019-05-18] MEDS: FLOMAX PO SCH (10:08)
[2019-05-18] MEDS: EFFEXOR XR 75 MG CAP 24-HR PO SCH (10:08)
[2019-05-18] MEDS: XANAX PEG SCH ×2 (10:09→21:02)
[2019-05-18] MEDS: COLACE SYRUP 100 MG UDC PEG SCH (10:09)
[2019-05-18] MEDS: LEVAQUIN PREMIX IV 500 MG 500 MG/100 ML BAG IV SCH (10:09)
[2019-05-18] MEDS: FLONASE NASAL SPRAY ENOSTRIL SCH ×2 (10:12→21:06)
[2019-05-18] MEDS: ARTIFICIAL TEARS OP SCH ×2 (10:41→21:00)
[2019-05-18] MEDS: AVODART PO SCH (10:41)
[2019-05-18] MEDS: THIORIDAZINE 50 MG Feeding Tube SCH (10:41)
[2019-05-18] MEDS: NS 1000 ML 1,000 ML IV SCH (10:42)
[2019-05-18] MEDS: ARICEPT TAB 10 MG PEG SCH (21:04)
[2019-05-18] MEDS: NAMENDA TAB 10 MG PO SCH (21:08)
[2019-05-19] MEDS: LACTOSE REDUCED FOOD WITH FIBR feeding tube SCH ×2 (02:30→05:50)
[2019-05-19 05:47] LABS: BASOPHILS % (AUTO) 0.4 % (0.2-1.0); EOSINOPHILS # (AUTO) 0.1 x10^3/uL (0.0-0.2); HEMATOCRIT 31.7 % (42.0-54.0); HEMOGLOBIN 11.1 g/dL (13.5-18.0); LYMPHOCYTES # (AUTO) 1.6 X10^3/uL (1.3-2.9); LYMPHOCYTES % (AUTO) 22.1 % (21.0-51.0); MEAN CORPUSCULAR HEMOGLOBIN 31.4 pg (27.0-34.0); MEAN CORPUSCULAR VOLUME 89.6 fL (80.0-100.0); MEAN PLATELET VOLUME 8.9 fL (7.4-11.0); MONOCYTES # (AUTO) 0.7 x10^3/uL (0.3-0.8); MONOCYTES % (AUTO) 9.8 % (0.0-13.0); NEUTROPHILS # (AUTO) 4.8 x10^3/uL (2.2-4.8); NEUTROPHILS % (AUTO) 66.7 % (42.0-75.0); PLATELET COUNT 108 X10^3/uL (150.0-450.0); RED BLOOD COUNT 3.54 X10^6/uL (4.7-6.0); RED CELL DISTRIBUTION WIDTH 14.5 % (11.6-16.5); WHITE BLOOD COUNT 7.1 X10^3/uL (3.6-10.0)
[2019-05-19] MEDS: ASTELIN NASAL SPRAY ENOSTRIL SCH ×3 (05:48→21:00)
[2019-05-19] MEDS: FORTAZ or TAZICEF VIAL INJ 1 G in NS 100 ML IV + SPIKE MINIBAG* 100 ML IV SCH ×3 (05:49→21:00)
[2019-05-19] MEDS: VALPROIC ACID Feeding Tube SCH (05:49)
[2019-05-19 05:59] LABS: ALANINE AMINOTRANSFERASE 12 Units/L (12-78); ALBUMIN 2.4 g/dL (3.4-5.0); ALKALINE PHOSPHATASE 38 Units/L (46-116); ASPARTATE AMINO TRANSFERASE 16 Units/L (15-37); BLOOD UREA NITROGEN 16 mg/dL (7-18); CALCIUM 8.8 mg/dL (8.5-10.1); CARBON DIOXIDE 27.5 mmol/L (21-32); CHLORIDE 107 mmol/L (98-107); COR CA(FOR HYPOALB) 10.1 mg/dL (8.5-10.1); CREATININE 0.92 mg/dL (0.70-1.30); SODIUM 140 mmol/L (136-145); TOTAL PROTEIN 6.2 g/dL (6.4-8.2); eGFR NON BLACK RACES > 60 (>60)
[2019-05-19] MEDS: PROVENTIL NEB TX 0.083% 2.5MG/ 3ML NEB SCH ×2 (08:47→21:15)
[2019-05-19] MEDS: PULMICORT NEB TX 0.5 MG NEB SCH ×2 (08:47→21:15)
[2019-05-19] MEDS: LEVAQUIN PREMIX IV 500 MG 500 MG/100 ML BAG IV SCH (09:07)
[2019-05-19] MEDS: EFFEXOR XR 75 MG CAP 24-HR PO SCH (09:08)
[2019-05-19] MEDS: GEODON PO SCH ×2 (09:08→21:00)
[2019-05-19] MEDS: PROSCAR PO SCH (09:08)
[2019-05-19] MEDS: SINGULAIR TAB 10 MG NG SCH (09:08)
[2019-05-19] MEDS: COLACE SYRUP 100 MG UDC PEG SCH (09:08)
[2019-05-19] MEDS: LASIX NG SCH ×2 (09:08→21:00)
[2019-05-19] MEDS: NAMENDA TAB 10 MG NG SCH (09:09)
[2019-05-19] MEDS: FLOMAX PO SCH (09:09)
[2019-05-19] MEDS: FLONASE NASAL SPRAY ENOSTRIL SCH ×2 (09:10→21:00)
[2019-05-19] MEDS: ELIQUIS NG SCH ×2 (09:10→21:00)
[2019-05-19] MEDS: XANAX PEG SCH (09:10)
[2019-05-19] MEDS: AVODART PO SCH (09:11)
[2019-05-19] MEDS: THIORIDAZINE 50 MG Feeding Tube SCH (09:11)
[2019-05-19] MEDS: ARTIFICIAL TEARS OP SCH ×2 (09:12→09:13)
[2019-05-19] MEDS: LOPRESSOR TAB 25 MG NG SCH (09:12)
[2019-05-19] MEDS: VALPROIC ACID PO SCH ×2 (12:45→21:00)
[2019-05-19] MEDS: NS 1000 ML 1,000 ML IV SCH ×2 (13:00)
[2019-05-19] MEDS: THIORIDAZINE 50 MG PO SCH (16:32)
[2019-05-19] MEDS: NAMENDA TAB 10 MG PO SCH (21:00)
--- NOTE | 2019-05-19 22:00 | DR.H&P ---
H&P - History & Physical for Day of: H&P Date: 05/17/19 - Chief Complaint Chief Complaint: SOB, FEVER - History of Present Illness History of Present Illness: IS A 74 YEAR OLD PATIENT OF OURS. HE IS A RESIDENT OF [facility]. HE PRESENTED TO THE ER WITH REPORTS OF SHORTNESS OF BREATH AND FEVER. SYMPTOMS REPORTEDLY STARTED ONE DAY PRIOR. 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 ON ARRIVAL TO THE ER, HIS VITALS WERE 98.7-92-22-100%-159/74. LABS WERE OBTAINED. ABNORMAL LAB VALUES INCLUDE THE FOLLOWING: RBC 4.57, HCT 40.5, PLT COUNT 117. CARDIAC ENZYMES WERE WITHIN NORMAL LIMITS. A URINALYSIS WAS OBTAINED AND REVEALED: WBC 0-2, RBC NONE SEEN, LEUKOCYTES 1+, BACTERIA NEGATIVE. BLOOD CULTURES AND SPUTUM CULTURE ARE PENDING. FLU, STREP, AND RSV NEGATIVE. CHEST XRAY REVEALED: Patchy right lower lobe airspace disease. Recommend following to resolution. EKG REVEALED: ATRIAL FIBRILLATION WITH HR 94. HE WAS STARTED ON 1/2NS AT 75ML/HR, IV FORTAZ, IV LEVAQUIN, RESPIRATORY TX, SUPPLEMENTAL OXYGEN, TUSSIONEX, AND ROBITUSSIN. WE PLAN TO FOLLOW UP WITH AM LABS AND CHEST XRAY AND CONTINUE TO MONITOR. HE WAS ADMITTED TO THE HOSPITAL FOR FURTHER EVALUATION AND TREATMENT OF BRONCHOPNEUMONIA. HE WAS STARTED ON NORMAL SALINE AT 75 ML/HR, FORTAZ 1G IV Q8H, LEVAQUIN 500MG IV DAILY, RESPIRATORY TX, AND HOME MEDICATIONS WERE RESUMED. OTHERWISE, WE PLAN TO FOLLOW UP WITH AM LABS AND CONTINUE TO MONITOR. - Past Medical History Past Medical History: Hypertension, Dyslipidemia, Diabetes, Schizophrenia, Dementia, Depression, Anxiety, CVA, COPD, GERD Additional Medical History: Prostate Cancer, Chronic Cholelithiasis - Past Surgical History Surgical History: Cholecystectomy Additional Surgical History: Prostatectomy, Hiatal Hernia Repair, Left Knee - Family History Family Medical History: Diabetes Mellitus, Coronary Artery Disease, Hypertension - Social History Does patient currently use any type of tobacco product: No Have you used tobacco products in the last 12 months: No Type of Tobacco Use: Cigarettes Does any household member use tobacco: No Alcohol Use: None Drug Use: None - Medications Home Medications: No Known Drug Allergies Allergy (Verified 05/17/19 09:20) CONTINUE taking the following medications artificial tears(hypromellose) 1 drp OPHTHALMIC (EYE) BID 05/17/19 [History] finasteride [Proscar] 5 mg PO DAILY 05/17/19 [History] magnesium hydroxide [Milk of Magnesia] 10 ml PO Q6H PRN 05/17/19 [History] oseltamivir 75 mg FEEDING TUBE HS 05/17/19 [History] tamsulosin 0.4 mg PO DAILY 05/17/19 [History] - Review of Systems Constitutional: Fever, Weakness Eyes: No Symptoms Reported ENT: No Symptoms Reported Respiratory: See HPI, Cough, Shortness of Breath Cardiovascular: No Symptoms Reported Gastrointestinal: No Symptoms Reported Genitourinary: No Symptoms Reported Musculoskeletal: No Symptoms Reported Skin: No Symptoms Reported Neurological: Weakness - Physical Exam Vital Signs: Temperature 98.0 F Pulse Rate [Left] 54 Pulse Rate 68 Respiratory Rate 18 Blood Pressure [Left Arm] 94/50 Blood Pressure 89/59 O2 Sat by Pulse Oximetry 98 Oriented: Person Eyes: Normal Ear: Normal Nose: Normal Throat: Normal Respiratory: Diminished Throughout Cardiovascular: Normal : Normal Auscultation: Bowel Sounds: Normal Palpation: Normal Tenderness: Normal Skin: Normal Musculoskeletal: Sensory Deficit Psychiatric: Normal Mood Description: Calm Affect: Normal Speech Pattern: Clear - Assessment/Plan (1) Bronchopneumonia Status: Acute Plan: ADMIT, NORMAL SALINE AT 75 ML/HR, FORTAZ 1G IV Q8H, LEVAQUIN 500MG IV DAILY, RESPIRATORY TX, AND HOME MEDICATIONS WERE RESUMED - Allergies Allergies/Adverse Reactions: Allergies Allergy/AdvReac Type Severity Reaction Status Date / Time No Known Drug Allergies Allergy Verified 05/17/19 09:20
[2019-05-20] MEDS: ARICEPT TAB 10 MG PEG SCH ×2 (01:42→21:52)
[2019-05-20] MEDS: XANAX PEG SCH ×3 (01:45→21:54)
[2019-05-20] MEDS: LOPRESSOR TAB 25 MG NG SCH ×3 (01:47→21:54)
[2019-05-20] MEDS: NS 1000 ML 1,000 ML IV SCH ×2 (03:57→17:47)
[2019-05-20] MEDS: ASTELIN NASAL SPRAY ENOSTRIL SCH ×3 (06:17→21:55)
[2019-05-20 06:18] LABS: BASOPHILS % (AUTO) 0.5 % (0.2-1.0); EOSINOPHILS # (AUTO) 0.1 x10^3/uL (0.0-0.2); HEMATOCRIT 30.1 % (42.0-54.0); HEMOGLOBIN 10.5 g/dL (13.5-18.0); LYMPHOCYTES # (AUTO) 1.5 X10^3/uL (1.3-2.9); LYMPHOCYTES % (AUTO) 30.3 % (21.0-51.0); MEAN CORPUSCULAR HGB CONC 34.7 g/dL (33.0-35.0); MEAN CORPUSCULAR VOLUME 89.4 fL (80.0-100.0); MEAN PLATELET VOLUME 8.6 fL (7.4-11.0); MONOCYTES # (AUTO) 0.3 x10^3/uL (0.3-0.8); MONOCYTES % (AUTO) 6.4 % (0.0-13.0); NEUTROPHILS % (AUTO) 60.8 % (42.0-75.0); PLATELET COUNT 115 X10^3/uL (150.0-450.0); RED BLOOD COUNT 3.37 X10^6/uL (4.7-6.0); RED CELL DISTRIBUTION WIDTH 14.4 % (11.6-16.5); WHITE BLOOD COUNT 4.9 X10^3/uL (3.6-10.0)
[2019-05-20] MEDS: VALPROIC ACID PO SCH ×3 (06:18→21:55)
[2019-05-20] MEDS: FORTAZ or TAZICEF VIAL INJ 1 G in NS 100 ML IV + SPIKE MINIBAG* 100 ML IV SCH ×3 (06:18→21:55)
[2019-05-20 06:21] LABS: ALANINE AMINOTRANSFERASE 16 Units/L (12-78); ALBUMIN 2.3 g/dL (3.4-5.0); ALKALINE PHOSPHATASE 33 Units/L (46-116); ASPARTATE AMINO TRANSFERASE 12 Units/L (15-37); BLOOD UREA NITROGEN 15 mg/dL (7-18); CALCIUM 8.7 mg/dL (8.5-10.1); CHLORIDE 106 mmol/L (98-107); COR CA(FOR HYPOALB) 10.1 mg/dL (8.5-10.1); CREATININE 0.87 mg/dL (0.70-1.30); SODIUM 140 mmol/L (136-145); eGFR NON BLACK RACES > 60 (>60)
--- NOTE | 2019-05-20 06:50 | RAD ---
HISTORYShortness of breathSTUDYCHEST, 1 [id number]/29/2020FINDINGSHeart is within normal limits in size. The karla remain prominent but unchanged. The lungs are mildly hypoinflated. Significant improvement noted right basilar lung infiltrate. Remainder of the lung desai are clear.IMPRESSIONImproving right basilar lung infiltrateElectronically signed by: CALLUM MARTINEZ (May 20, 2019 06:49:11)
--- NOTE | 2019-05-20 07:18 | RAD ---
HISTORYLow O2 satSTUDYCHEST, 1 VIEWCOMPARISONThree hundred twenty-seven is 20/20FINDINGSThe heart is within normal limits in size. The karla are prominent but unchanged. Right basilar lung infiltrate improving no pleural effusions are identified. Bony thorax is unremarkable.IMPRESSIONImproving right basilar lung infiltrateElectronically signed by: CALLUM MARTINEZ (May 20, 2019 07:16:56)
[2019-05-20] MEDS: AVODART PO SCH (09:07)
[2019-05-20] MEDS: ELIQUIS NG SCH ×2 (09:08→21:52)
[2019-05-20] MEDS: LEVAQUIN PREMIX IV 500 MG 500 MG/100 ML BAG IV SCH (09:08)
[2019-05-20] MEDS: COLACE SYRUP 100 MG UDC PEG SCH (09:08)
[2019-05-20] MEDS: EFFEXOR XR 75 MG CAP 24-HR PO SCH (09:10)
[2019-05-20] MEDS: PROSCAR PO SCH (09:10)
[2019-05-20] MEDS: LASIX NG SCH ×2 (09:10→21:53)
[2019-05-20] MEDS: NAMENDA TAB 10 MG NG SCH (09:11)
[2019-05-20] MEDS: FLOMAX PO SCH (09:13)
[2019-05-20] MEDS: GEODON PO SCH ×2 (09:14→21:53)
[2019-05-20] MEDS: FLONASE NASAL SPRAY ENOSTRIL SCH ×2 (09:15→21:53)
[2019-05-20] MEDS: THIORIDAZINE 50 MG PO SCH (09:15)
[2019-05-20] MEDS: SINGULAIR TAB 10 MG NG SCH (09:16)
[2019-05-20] MEDS: PROVENTIL NEB TX 0.083% 2.5MG/ 3ML NEB SCH ×2 (09:26→20:52)
[2019-05-20] MEDS: PULMICORT NEB TX 0.5 MG NEB SCH ×2 (09:26→20:51)
--- NOTE | 2019-05-20 10:57 | PCM.PROG ---
Progress Note - Progress Note for Day of Date of Exam: 05/19/19 - Subjective Subjective: WAS ADMITTED FOR BRONCHOPNEUMONIA. TODAY, HE IS LYING IN BED WITH EYES CLOSED ON MORNING ROUNDS. HE AWAKENS EASILY TO VERBAL STIMULI. ON EXAMINATION, HEART IS REGULAR IN RATE AND RHYTHM. BILATERAL LUNGS ARE NOTED WITH SCATTERED WHEEZING. ABDOMEN IS ROUND, SOFT, AND NON-TENDER WITH NORMAL BOWEL SOUNDS NOTED IN ALL QUADRANTS. HIS VITALS THIS MORNING ARE: 97.7-60-18-98%-95/53. LABS WERE OBTAINED. ABNORMAL LAB VALUES INCLUDE THE FOLLOWING: RBC 3.54, HGB 11.1, HCT 31.7, PLT COUNT 108, ALK PHOS 38, TOTAL PROTEIN 6.2, ALBUMIN 2.4. A CHEST XRAY WAS OBTAINED AND REVEALED: Minimal infil trate right lung base medially consistent pneumonia. SPUTUM CULTURE REVEALS GROWTH OF MORGANELLA MORGANII. HE IS CURRENTLY RECIVING IV FORTAZ, IV LEVAQUIN, RESPIRATORY TX, SUPPLEMENTAL OXYGEN, AND HOME MEDICATIONS WERE RESUMED. WE WILL CONTINUE WITH CURRENT PLAN OF CARE TODAY. OTHERWISE, WE PLAN TO FOLLOW UP WITH AM LABS AND CHEST XRAY AND CONTINUE TO MONITOR. - Past Medical Family Social History Past Med/Fam/Surg Hx: No changes since H&P Allergies: Allergies No Known Drug Allergies Allergy (Verified 05/17/19 09:20) - Review of Systems ROS: No change since H&P - Vital Signs and I&O's Vital Signs: Temperature 98.1 F Pulse Rate [Left] 69 Pulse Rate 75 Respiratory Rate 22 Blood Pressure [Left Arm] 89/45 Blood Pressure 89/59 O2 Sat by Pulse Oximetry 94 Intake and Output: Intake & Output 05/17/19 05/18/19 05/19/19 05/20/19 11:59 11:59 11:59 11:59 Intake Total 410 / 410 2060 825 / 825 Output Total 102 / 102 Balance 410 / 410 2060 723 / 723 - Physical Exam Oriented: Person Eyes: Normal Ear: Normal Nose: Normal Throat: Normal Respiratory: Generalized, Wheezes Cardiovascular: Normal : Normal Auscultation: Bowel Sounds: Normal Palpation: Normal Tenderness: Normal Skin: Normal Musculoskeletal: Sensory Deficit Psychiatric: Normal Mood Description: Calm Affect: Normal Speech Pattern: Aphasic - Laboratory and Diagnostics Result Diagrams: 05/20/19 05:57 05/20/19 05:57 Labs: 05/17/19 16:55 Sputum - Expectorated Sputum Sputum Culture - Final Morganella Morganii 05/17/19 16:55 Sputum - Expectorated Sputum - Final 05/17/19 12:42 Blood Blood Culture - Preliminary 05/17/19 12:47 Blood Blood Culture - Preliminary Laboratory WBC 4.9 X10^3/uL (3.6-10.0) 05/20/19 05:57 RBC 3.37 X10^6/uL (4.7-6.0) L 05/20/19 05:57 Hgb 10.5 g/dL (13.5-18.0) L 05/20/19 05:57 Hct 30.1 % (42.0-54.0) L 05/20/19 05:57 MCV 89.4 fL (80.0-100.0) 05/20/19 05:57 MCH 31.0 pg (27.0-34.0) 05/20/19 05:57 MCHC 34.7 g/dL (33.0-35.0) 05/20/19 05:57 RDW 14.4 % (11.6-16.5) 05/20/19 05:57 Plt Count 115 X10^3/uL (150.0-450.0) L 05/20/19 05:57 MPV 8.6 fL (7.4-11.0) 05/20/19 05:57 Neut % (Auto) 60.8 % (42.0-75.0) 05/20/19 05:57 Lymph % (Auto) 30.3 % (21.0-51.0) 05/20/19 05:57 [place] % (Auto) 6.4 % (0.0-13.0) 05/20/19 05:57 Eos % (Auto) 2.0 % (0.9-2.9) 05/20/19 05:57 Baso % (Auto) 0.5 % (0.2-1.0) 05/20/19 05:57 Neut # (Auto) 3.0 x10^3/uL (2.2-4.8) 05/20/19 05:57 Lymph # (Auto) 1.5 X10^3/uL (1.3-2.9) 05/20/19 05:57 [place] # (Auto) 0.3 x10^3/uL (0.3-0.8) 05/20/19 05:57 Eos # (Auto) 0.1 x10^3/uL (0.0-0.2) 05/20/19 05:57 Baso # (Auto) 0.0 X10^3/uL (0.0-0.1) 05/20/19 05:57 Absolute Nucleated RBC 0.0 /100WBC 05/20/19 05:57 Sodium 140 mmol/L (136-145) 05/20/19 05:57 Corrected Sodium TNP 05/20/19 05:57 Potassium 4.0 mmol/L (3.5-5.1) 05/20/19 05:57 Chloride 106 mmol/L (98-107) 05/20/19 05:57 Carbon Dioxide 30.0 mmol/L (21-32) 05/20/19 05:57 BUN 15 mg/dL (7-18) 05/20/19 05:57 Creatinine 0.87 mg/dL (0.70-1.30) 05/20/19 05:57 Est GFR (MDRD) Af Amer > 60 (>60) 05/20/19 05:57 Est GFR (MDRD) Non-Af > 60 (>60) 05/20/19 05:57 Glucose 90 mg/dL (65-99) 05/20/19 05:57 Lactic Acid 1.0 mmol/L (0.4-2.0) 05/17/19 12:42 Calcium 8.7 mg/dL (8.5-10.1) 05/20/19 05:57 Corrected Calcium 10.1 mg/dL (8.5-10.1) 05/20/19 05:57 Magnesium 2.0 mg/dL (1.7-2.9) 05/18/19 06:06 Total Bilirubin 0.50 mg/dL (0.2-1.0) 05/20/19 05:57 AST 12 Units/L (15-37) L 05/20/19 05:57 ALT 16 Units/L (12-78) 05/20/19 05:57 Alkaline Phosphatase 33 Units/L (46-116) L 05/20/19 05:57 Creatine Kinase 80 Units/L (39-308) 05/18/19 06:06 CK-MB (CK-2) < 1.0 ng/mL (0-4.0) 05/18/19 06:06 CK/CKMB % Calc 1.3 % (<4) 05/18/19 06:06 Troponin I < 0.02 ng/mL (0-1.5) 05/18/19 06:06 Total Protein 6.0 g/dL (6.4-8.2) L 05/20/19 05:57 Albumin 2.3 g/dL (3.4-5.0) L 05/20/19 05:57 Globulin 3.7 g/dL (2.5-4.5) 05/20/19 05:57 Albumin/Globulin Ratio 0.6 Ratio (1.1-2.1) L 05/20/19 05:57 Specimen Type Catherized urine 05/17/19 12:12 Urine Color Yellow (YELLOW) 05/17/19 12:12 Urine Appearance Hazy (CLEAR) 05/17/19 12:12 Urine pH 9.0 (5.0 - 8.0) 05/17/19 12:12 Ur Specific [place] 1.015 (1.000-1.030) 05/17/19 12:12 Urine Protein Negative (NEGATIVE) 05/17/19 12:12 Urine Glucose (UA) Negative (NEGATIVE) 05/17/19 12:12 Urine Ketones 1+ (NEGATIVE) 05/17/19 12:12 Urine Occult Blood Negative (NEGATIVE) 05/17/19 12:12 Urine Nitrite Negative (NEGATIVE) 05/17/19 12:12 Urine Bilirubin Negative (NEGATIVE) 05/17/19 12:12 Urine Urobilinogen 2+ (NORMAL) 05/17/19 12:12 Ur Leukocyte Esterase 1+ (NEGATIVE) 05/17/19 12:12 Urine RBC None seen /HPF (0-3) 05/17/19 12:12 Urine WBC 0-2 /HPF (0-5) 05/17/19 12:12 Ur Squamous Epith Cells Negative /HPF (NEGATIVE) 05/17/19 12:12 Urine Bacteria Negative /HPF (NEGATIVE) 05/17/19 12:12 Ur Culture Indicated? No/not indicated 05/17/19 12:12 RSV Nasal Swab Negative (NEGATIVE) 05/17/19 08:45 Influenza Type A (PCR) Negative (NEGATIVE) 05/17/19 08:45 Influenza Type B (PCR) Negative (NEGATIVE) 05/17/19 08:45 S. pyogenes (TEM-PCR) Not detected (NOT DETECT) 05/17/19 08:45 - Plan (1) Bronchopneumonia Status: Acute Plan: NORMAL SALINE AT 75 ML/HR, FORTAZ 1G IV Q8H, LEVAQUIN 500MG IV DAILY, RESPIRATORY TX, AND HOME MEDICATIONS WERE RESUMED
--- NOTE | 2019-05-20 11:15 | PCM.PROG ---
Progress Note - Progress Note for Day of Date of Exam: 05/20/19 - Subjective Subjective: WAS ADMITTED FOR BRONCHOPNEUMONIA. TODAY, HE IS LYING IN BED WITH EYES CLOSED ON MORNING ROUNDS. HE AWAKENS EASILY TO VERBAL STIMULI. HE CONTINUES WITH COUGH. ON EXAMINATION, HEART IS REGULAR IN RATE AND RHYTHM. BILATERAL LUNGS ARE NOTED WITH SCATTERED WHEEZING. ABDOMEN IS ROUND, SOFT, AND NON-TENDER WITH NORMAL BOWEL SOUNDS NOTED IN ALL QUADRANTS. HIS VITALS THIS MORNING ARE: 98.1-69-22-98%-89/45. LABS WERE OBTAINED. ABNORMAL LAB VALUES INCLUDE THE FOLLOWING: RBC 3.37, HGB 10.5, HCT 30.1, AST 12, ALK PHOS 33, TOTAL PROTEIN 6.0, ALBUMIN 2.3. A CHEST XRAY WAS OBTAINED AND REVEALED: Improving right basilar lung infiltrate. SPUTUM CULTURE REVEALS GROWTH OF MORGANELLA MORGANII. BLOOD CULTURES ARE PENDING. HE IS CURRENTLY RECIVING IV FORTAZ, IV LEVAQUIN, RESPIRATORY TX, SUPPLEMENTAL OXYGEN, AND HOME MEDICATIONS WERE RESUMED. WE WILL CONTINUE WITH CURRENT PLAN OF CARE TODAY. OTHERWISE, WE PLAN TO FOLLOW UP WITH AM LABS AND CHEST XRAY AND CONTINUE TO MONITOR. - Past Medical Family Social History Past Med/Fam/Surg Hx: No changes since H&P Allergies: Allergies No Known Drug Allergies Allergy (Verified 05/17/19 09:20) - Review of Systems ROS: No change since H&P - Vital Signs and I&O's Vital Signs: Temperature 98.1 F Pulse Rate [Left] 69 Pulse Rate 75 Respiratory Rate 22 Blood Pressure [Left Arm] 89/45 Blood Pressure 89/59 O2 Sat by Pulse Oximetry 94 Intake and Output: Intake & Output 05/17/19 05/18/19 05/19/19 05/20/19 11:59 11:59 11:59 11:59 Intake Total 410 / 410 2060 825 / 825 Output Total 102 / 102 Balance 410 / 410 2060 723 / 723 - Physical Exam Oriented: Person Eyes: Normal Ear: Normal Nose: Normal Throat: Normal Respiratory: Generalized, Wheezes Cardiovascular: Normal : Normal Auscultation: Bowel Sounds: Normal Tenderness: Normal Skin: Normal Musculoskeletal: Sensory Deficit Psychiatric: Normal Mood Description: Calm Affect: Normal Speech Pattern: Aphasic - Laboratory and Diagnostics Result Diagrams: 05/20/19 05:57 05/20/19 05:57 Labs: 05/17/19 16:55 Sputum - Expectorated Sputum Sputum Culture - Final Morganella Morganii 05/17/19 16:55 Sputum - Expectorated Sputum - Final 05/17/19 12:42 Blood Blood Culture - Preliminary 05/17/19 12:47 Blood Blood Culture - Preliminary Laboratory WBC 4.9 X10^3/uL (3.6-10.0) 05/20/19 05:57 RBC 3.37 X10^6/uL (4.7-6.0) L 05/20/19 05:57 Hgb 10.5 g/dL (13.5-18.0) L 05/20/19 05:57 Hct 30.1 % (42.0-54.0) L 05/20/19 05:57 MCV 89.4 fL (80.0-100.0) 05/20/19 05:57 MCH 31.0 pg (27.0-34.0) 05/20/19 05:57 MCHC 34.7 g/dL (33.0-35.0) 05/20/19 05:57 RDW 14.4 % (11.6-16.5) 05/20/19 05:57 Plt Count 115 X10^3/uL (150.0-450.0) L 05/20/19 05:57 MPV 8.6 fL (7.4-11.0) 05/20/19 05:57 Neut % (Auto) 60.8 % (42.0-75.0) 05/20/19 05:57 Lymph % (Auto) 30.3 % (21.0-51.0) 05/20/19 05:57 [place] % (Auto) 6.4 % (0.0-13.0) 05/20/19 05:57 Eos % (Auto) 2.0 % (0.9-2.9) 05/20/19 05:57 Baso % (Auto) 0.5 % (0.2-1.0) 05/20/19 05:57 Neut # (Auto) 3.0 x10^3/uL (2.2-4.8) 05/20/19 05:57 Lymph # (Auto) 1.5 X10^3/uL (1.3-2.9) 05/20/19 05:57 [place] # (Auto) 0.3 x10^3/uL (0.3-0.8) 05/20/19 05:57 Eos # (Auto) 0.1 x10^3/uL (0.0-0.2) 05/20/19 05:57 Baso # (Auto) 0.0 X10^3/uL (0.0-0.1) 05/20/19 05:57 Absolute Nucleated RBC 0.0 /100WBC 05/20/19 05:57 Sodium 140 mmol/L (136-145) 05/20/19 05:57 Corrected Sodium TNP 05/20/19 05:57 Potassium 4.0 mmol/L (3.5-5.1) 05/20/19 05:57 Chloride 106 mmol/L (98-107) 05/20/19 05:57 Carbon Dioxide 30.0 mmol/L (21-32) 05/20/19 05:57 BUN 15 mg/dL (7-18) 05/20/19 05:57 Creatinine 0.87 mg/dL (0.70-1.30) 05/20/19 05:57 Est GFR (MDRD) Af Amer > 60 (>60) 05/20/19 05:57 Est GFR (MDRD) Non-Af > 60 (>60) 05/20/19 05:57 Glucose 90 mg/dL (65-99) 05/20/19 05:57 Lactic Acid 1.0 mmol/L (0.4-2.0) 05/17/19 12:42 Calcium 8.7 mg/dL (8.5-10.1) 05/20/19 05:57 Corrected Calcium 10.1 mg/dL (8.5-10.1) 05/20/19 05:57 Magnesium 2.0 mg/dL (1.7-2.9) 05/18/19 06:06 Total Bilirubin 0.50 mg/dL (0.2-1.0) 05/20/19 05:57 AST 12 Units/L (15-37) L 05/20/19 05:57 ALT 16 Units/L (12-78) 05/20/19 05:57 Alkaline Phosphatase 33 Units/L (46-116) L 05/20/19 05:57 Creatine Kinase 80 Units/L (39-308) 05/18/19 06:06 CK-MB (CK-2) < 1.0 ng/mL (0-4.0) 05/18/19 06:06 CK/CKMB % Calc 1.3 % (<4) 05/18/19 06:06 Troponin I < 0.02 ng/mL (0-1.5) 05/18/19 06:06 Total Protein 6.0 g/dL (6.4-8.2) L 05/20/19 05:57 Albumin 2.3 g/dL (3.4-5.0) L 05/20/19 05:57 Globulin 3.7 g/dL (2.5-4.5) 05/20/19 05:57 Albumin/Globulin Ratio 0.6 Ratio (1.1-2.1) L 05/20/19 05:57 Specimen Type Catherized urine 05/17/19 12:12 Urine Color Yellow (YELLOW) 05/17/19 12:12 Urine Appearance Hazy (CLEAR) 05/17/19 12:12 Urine pH 9.0 (5.0 - 8.0) 05/17/19 12:12 Ur Specific [place] 1.015 (1.000-1.030) 05/17/19 12:12 Urine Protein Negative (NEGATIVE) 05/17/19 12:12 Urine Glucose (UA) Negative (NEGATIVE) 05/17/19 12:12 Urine Ketones 1+ (NEGATIVE) 05/17/19 12:12 Urine Occult Blood Negative (NEGATIVE) 05/17/19 12:12 Urine Nitrite Negative (NEGATIVE) 05/17/19 12:12 Urine Bilirubin Negative (NEGATIVE) 05/17/19 12:12 Urine Urobilinogen 2+ (NORMAL) 05/17/19 12:12 Ur Leukocyte Esterase 1+ (NEGATIVE) 05/17/19 12:12 Urine RBC None seen /HPF (0-3) 05/17/19 12:12 Urine WBC 0-2 /HPF (0-5) 05/17/19 12:12 Ur Squamous Epith Cells Negative /HPF (NEGATIVE) 05/17/19 12:12 Urine Bacteria Negative /HPF (NEGATIVE) 05/17/19 12:12 Ur Culture Indicated? No/not indicated 05/17/19 12:12 RSV Nasal Swab Negative (NEGATIVE) 05/17/19 08:45 Influenza Type A (PCR) Negative (NEGATIVE) 05/17/19 08:45 Influenza Type B (PCR) Negative (NEGATIVE) 05/17/19 08:45 S. pyogenes (TEM-PCR) Not detected (NOT DETECT) 05/17/19 08:45 - Plan (1) Bronchopneumonia Status: Acute Plan: NORMAL SALINE AT 75 ML/HR, FORTAZ 1G IV Q8H, LEVAQUIN 500MG IV DAILY, RES PIRATORY TX, AND HOME MEDICATIONS WERE RESUMED
[2019-05-20] MEDS: NAMENDA TAB 10 MG PO SCH (21:54)
[2019-05-21 05:22] LABS: BASOPHILS % (AUTO) 0.6 % (0.2-1.0); EOSINOPHILS # (AUTO) 0.2 x10^3/uL (0.0-0.2); EOSINOPHILS % (AUTO) 3.9 % (0.9-2.9); HEMATOCRIT 28.6 % (42.0-54.0); HEMOGLOBIN 9.9 g/dL (13.5-18.0); LYMPHOCYTES # (AUTO) 1.6 X10^3/uL (1.3-2.9); LYMPHOCYTES % (AUTO) 37.1 % (21.0-51.0); MEAN CORPUSCULAR HEMOGLOBIN 31.2 pg (27.0-34.0); MEAN CORPUSCULAR HGB CONC 34.6 g/dL (33.0-35.0); MEAN CORPUSCULAR VOLUME 90.2 fL (80.0-100.0); MEAN PLATELET VOLUME 8.9 fL (7.4-11.0); MONOCYTES # (AUTO) 0.3 x10^3/uL (0.3-0.8); MONOCYTES % (AUTO) 6.6 % (0.0-13.0); NEUTROPHILS # (AUTO) 2.3 x10^3/uL (2.2-4.8); NEUTROPHILS % (AUTO) 51.8 % (42.0-75.0); PLATELET COUNT 129 X10^3/uL (150.0-450.0); RED BLOOD COUNT 3.17 X10^6/uL (4.7-6.0); RED CELL DISTRIBUTION WIDTH 14.2 % (11.6-16.5); WHITE BLOOD COUNT 4.4 X10^3/uL (3.6-10.0)
[2019-05-21 05:25] LABS: ALANINE AMINOTRANSFERASE 15 Units/L (12-78); ALBUMIN 2.4 g/dL (3.4-5.0); ALKALINE PHOSPHATASE 37 Units/L (46-116); ASPARTATE AMINO TRANSFERASE 13 Units/L (15-37); BLOOD UREA NITROGEN 14 mg/dL (7-18); CALCIUM 8.6 mg/dL (8.5-10.1); CARBON DIOXIDE 28.5 mmol/L (21-32); CHLORIDE 107 mmol/L (98-107); COR CA(FOR HYPOALB) 9.9 mg/dL (8.5-10.1); CREATININE 0.85 mg/dL (0.70-1.30); SODIUM 141 mmol/L (136-145); TOTAL PROTEIN 6.1 g/dL (6.4-8.2); eGFR NON BLACK RACES > 60 (>60)
[2019-05-21] MEDS: ASTELIN NASAL SPRAY ENOSTRIL SCH ×3 (06:17→22:05)
[2019-05-21] MEDS: FORTAZ or TAZICEF VIAL INJ 1 G in NS 100 ML IV + SPIKE MINIBAG* 100 ML IV SCH ×3 (06:17→22:05)
[2019-05-21] MEDS: VALPROIC ACID PO SCH ×3 (06:18→22:06)
--- NOTE | 2019-05-21 07:01 | RAD ---
HISTORYShortness of breathSTUDYCHEST, 1 [id number]/30/2020FINDINGSThe heart is within normal limits in size. The karla remain somewhat prominent but unchanged. The lungs are mildly hypoinflated but free of acute alveolar infiltrates. No pleural effusions are identified. Bony thorax is unremarkable.IMPRESSIONLungs now clearElectronically signed by: CALLUM MARTINEZ (May 21, 2019 06:59:07)
[2019-05-21] MEDS: PULMICORT NEB TX 0.5 MG NEB SCH ×2 (09:48→21:20)
[2019-05-21] MEDS: PROVENTIL NEB TX 0.083% 2.5MG/ 3ML NEB SCH ×2 (09:48→21:20)
[2019-05-21] MEDS: AVODART PO SCH (09:49)
[2019-05-21] MEDS: NS 1000 ML 1,000 ML IV SCH ×2 (09:49→22:05)
[2019-05-21] MEDS: ELIQUIS NG SCH ×2 (09:50→22:03)
[2019-05-21] MEDS: EFFEXOR XR 75 MG CAP 24-HR PO SCH (09:50)
[2019-05-21] MEDS: FLOMAX PO SCH (09:50)
[2019-05-21] MEDS: COLACE SYRUP 100 MG UDC PEG SCH (09:50)
[2019-05-21] MEDS: FLONASE NASAL SPRAY ENOSTRIL SCH ×2 (09:51→22:04)
[2019-05-21] MEDS: GEODON PO SCH ×2 (09:51→22:03)
[2019-05-21] MEDS: LEVAQUIN PREMIX IV 500 MG 500 MG/100 ML BAG IV SCH (09:51)
[2019-05-21] MEDS: LASIX NG SCH ×2 (09:51→22:03)
[2019-05-21] MEDS: SINGULAIR TAB 10 MG NG SCH (09:52)
[2019-05-21] MEDS: NAMENDA TAB 10 MG NG SCH (09:52)
[2019-05-21] MEDS: LOPRESSOR TAB 25 MG NG SCH ×2 (09:52→22:04)
[2019-05-21] MEDS: PROSCAR PO SCH (09:52)
[2019-05-21] MEDS: XANAX PEG SCH ×2 (09:53→22:05)
[2019-05-21] MEDS: THIORIDAZINE 50 MG PO SCH (09:53)
[2019-05-21] MEDS: NAMENDA TAB 10 MG PO SCH (22:02)
[2019-05-21] MEDS: ARICEPT TAB 10 MG PEG SCH (22:03)
[2019-05-22 05:03] LABS: BASOPHILS % (AUTO) 0.8 % (0.2-1.0); EOSINOPHILS # (AUTO) 0.1 x10^3/uL (0.0-0.2); EOSINOPHILS % (AUTO) 3.5 % (0.9-2.9); HEMATOCRIT 34.7 % (42.0-54.0); HEMOGLOBIN 11.8 g/dL (13.5-18.0); LYMPHOCYTES # (AUTO) 1.6 X10^3/uL (1.3-2.9); LYMPHOCYTES % (AUTO) 43.1 % (21.0-51.0); MEAN CORPUSCULAR HEMOGLOBIN 30.7 pg (27.0-34.0); MEAN CORPUSCULAR VOLUME 90.3 fL (80.0-100.0); MEAN PLATELET VOLUME 8.6 fL (7.4-11.0); MONOCYTES # (AUTO) 0.3 x10^3/uL (0.3-0.8); MONOCYTES % (AUTO) 8.9 % (0.0-13.0); NEUTROPHILS # (AUTO) 1.6 x10^3/uL (2.2-4.8); NEUTROPHILS % (AUTO) 43.7 % (42.0-75.0); PLATELET COUNT 130 X10^3/uL (150.0-450.0); RED BLOOD COUNT 3.84 X10^6/uL (4.7-6.0); RED CELL DISTRIBUTION WIDTH 13.9 % (11.6-16.5); WHITE BLOOD COUNT 3.6 X10^3/uL (3.6-10.0)
[2019-05-22 05:16] LABS: ALANINE AMINOTRANSFERASE 15 Units/L (12-78); ALBUMIN 2.5 g/dL (3.4-5.0); ALKALINE PHOSPHATASE 41 Units/L (46-116); ASPARTATE AMINO TRANSFERASE 15 Units/L (15-37); BLOOD UREA NITROGEN 15 mg/dL (7-18); CARBON DIOXIDE 31.7 mmol/L (21-32); CHLORIDE 107 mmol/L (98-107); COR CA(FOR HYPOALB) 10.2 mg/dL (8.5-10.1); CREATININE 0.87 mg/dL (0.70-1.30); SODIUM 141 mmol/L (136-145); TOTAL PROTEIN 6.5 g/dL (6.4-8.2); eGFR NON BLACK RACES > 60 (>60)
--- NOTE | 2019-05-22 05:33 | RAD ---
Chest AP portableIndication: DyspneaComparison May 21, 2019FINDINGSThere is no pneumothorax or large effusion. Heart size is normal. Scarring is suggested in the left lung base. Patchy right infrahilar opacity suggested.IMPRESSIONProminent heart size and chronic lung changes. Developing basilar infection not excluded. Follow-up to resolution.Electronically signed by: DERRICK JONES (May 22, 2019 05:32:38)
[2019-05-22] MEDS: VALPROIC ACID PO SCH ×3 (06:11→21:19)
[2019-05-22] MEDS: FORTAZ or TAZICEF VIAL INJ 1 G in NS 100 ML IV + SPIKE MINIBAG* 100 ML IV SCH ×3 (06:11→21:18)
[2019-05-22] MEDS: ASTELIN NASAL SPRAY ENOSTRIL SCH ×3 (06:11→21:17)
[2019-05-22] MEDS: EFFEXOR XR 75 MG CAP 24-HR PO SCH (09:21)
[2019-05-22] MEDS: PROSCAR PO SCH (09:21)
[2019-05-22] MEDS: GEODON PO SCH ×2 (09:21→21:21)
[2019-05-22] MEDS: LASIX NG SCH ×2 (09:22→21:20)
[2019-05-22] MEDS: FLOMAX PO SCH (09:22)
[2019-05-22] MEDS: ELIQUIS NG SCH ×2 (09:22→21:21)
[2019-05-22] MEDS: NAMENDA TAB 10 MG NG SCH (09:22)
[2019-05-22] MEDS: SINGULAIR TAB 10 MG NG SCH (09:23)
[2019-05-22] MEDS: COLACE SYRUP 100 MG UDC PEG SCH (09:23)
[2019-05-22] MEDS: LOPRESSOR TAB 25 MG NG SCH ×2 (09:24→21:22)
[2019-05-22] MEDS: XANAX PEG SCH ×2 (09:24→21:22)
[2019-05-22] MEDS: FLONASE NASAL SPRAY ENOSTRIL SCH ×2 (09:24→21:18)
[2019-05-22] MEDS: AVODART PO SCH (09:24)
[2019-05-22] MEDS: LEVAQUIN PREMIX IV 500 MG 500 MG/100 ML BAG IV SCH (09:24)
[2019-05-22] MEDS: THIORIDAZINE 50 MG PO SCH (09:25)
[2019-05-22] MEDS: PULMICORT NEB TX 0.5 MG NEB SCH ×2 (09:36→21:40)
[2019-05-22] MEDS: PROVENTIL NEB TX 0.083% 2.5MG/ 3ML NEB SCH ×2 (09:36→21:40)
--- NOTE | 2019-05-22 09:44 | PCM.PROG ---
Progress Note - Progress Note for Day of Date of Exam: 05/21/19 - Subjective Subjective: WAS ADMITTED FOR BRONCHOPNEUMONIA. TODAY, HE IS LYING IN BED WITH EYES CLOSED ON MORNING ROUNDS. HE AWAKENS EASILY TO VERBAL STIMULI. HE CONTINUES WITH COUGH, HOWEVER, IT SEEMS TO BE SLIGHTLY IMPROVED SINCE YESTERDAY. ON EXAMINATION, HEART IS REGULAR IN RATE AND RHYTHM. BILATERAL LUNGS ARE NOTED WITH SCATTERED WHEEZING. ABDOMEN IS ROUND, SOFT, AND NON-TENDER WITH NORMAL BOWEL SOUNDS NOTED IN ALL QUADRANTS. HIS VITALS THIS MORNING ARE: 97.7-74-18-98%-100/57. LABS WERE OBTAINED. ABNORMAL LAB VALUES INCLUDE THE FOLLOWING: RBC 3.17, HGB 9.9, HCT 28.6, PLT COUNT 129, AST 13, ALK PHOS 37, TOTAL PROTEIN 6.1, ALBUMIN 2.4. A CHEST XRAY WAS OBTAINED AND REVEALED: LUNGS CLEAR. SPUTUM CULTURE REVEALS GROWTH OF MORGANELLA MORGANII. BLOOD CULTURES ARE PENDING. HE IS CURRENTLY RECIVING IV FORTAZ, IV LEVAQUIN, RESPIRATORY TX, SUPPLEMENTAL OXYGEN, AND HOME MEDICATIONS WERE RESUMED. WE WILL CONTINUE WITH CURRENT PLAN OF CARE TODAY. OTHERWISE, WE PLAN TO FOLLOW UP WITH AM LABS AND CHEST - Past Medical Family Social History Past Med/Fam/Surg Hx: No changes since H&P Allergies: Allergies No Known Drug Allergies Allergy (Verified 05/17/19 09:20) - Review of Systems ROS: No change since H&P - Vital Signs and I&O's Vital Signs: Temperature 98.7 F Pulse Rate [Left] 63 Pulse Rate 53 Respiratory Rate 20 Blood Pressure [Left Arm] 122/56 Blood Pressure 89/59 O2 Sat by Pulse Oximetry 99 Intake and Output: Intake & Output 05/19/19 05/20/19 05/21/19 05/22/19 11:59 11:59 11:59 11:59 Intake Total 2060 825 / 825 1290 / 1290 2299 / 2299 Output Total 102 / 102 4 / Balance 2060 723 / 723 1286 / 1286 2299 / 2299 - Physical Exam Oriented: Person Eyes: Normal Ear: Normal Nose: Normal Throat: Normal Respiratory: Generalized, Wheezes Cardiovascular: Normal : Normal Auscultation: Bowel Sounds: Normal Palpation: Normal Tenderness: Normal Skin: Normal Musculoskeletal: Sensory Deficit Psychiatric: Normal Mood Description: Calm Affect: Normal Speech Pattern: Aphasic - Laboratory and Diagnostics Result Diagrams: 05/22/19 04:31 05/22/19 04:31 Labs: 05/17/19 16:55 Sputum - Expectorated Sputum Sputum Culture - Final Morganella Morganii 05/17/19 16:55 Sputum - Expectorated Sputum - Final 05/17/19 12:42 Blood Blood Culture - Preliminary 05/17/19 12:47 Blood Blood Culture - Preliminary Laboratory WBC 3.6 X10^3/uL (3.6-10.0) 05/22/19 04:31 RBC 3.84 X10^6/uL (4.7-6.0) L 05/22/19 04:31 Hgb 11.8 g/dL (13.5-18.0) L 05/22/19 04:31 Hct 34.7 % (42.0-54.0) L 05/22/19 04:31 MCV 90.3 fL (80.0-100.0) 05/22/19 04:31 MCH 30.7 pg (27.0-34.0) 05/22/19 04:31 MCHC 34.0 g/dL (33.0-35.0) 05/22/19 04:31 RDW 13.9 % (11.6-16.5) 05/22/19 04:31 Plt Count 130 X10^3/uL (150.0-450.0) L 05/22/19 04:31 MPV 8.6 fL (7.4-11.0) 05/22/19 04:31 Neut % (Auto) 43.7 % (42.0-75.0) 05/22/19 04:31 Lymph % (Auto) 43.1 % (21.0-51.0) 05/22/19 04:31 [place] % (Auto) 8.9 % (0.0-13.0) 05/22/19 04:31 Eos % (Auto) 3.5 % (0.9-2.9) H 05/22/19 04:31 Baso % (Auto) 0.8 % (0.2-1.0) 05/22/19 04:31 Neut # (Auto) 1.6 x10^3/uL (2.2-4.8) L 05/22/19 04:31 Lymph # (Auto) 1.6 X10^3/uL (1.3-2.9) 05/22/19 04:31 [place] # (Auto) 0.3 x10^3/uL (0.3-0.8) 05/22/19 04:31 Eos # (Auto) 0.1 x10^3/uL (0.0-0.2) 05/22/19 04:31 Baso # (Auto) 0.0 X10^3/uL (0.0-0.1) 05/22/19 04:31 Absolute Nucleated RBC 0.2 /100WBC 05/22/19 04:31 Sodium 141 mmol/L (136-145) 05/22/19 04:31 Corrected Sodium TNP 05/22/19 04:31 Potassium 4.0 mmol/L (3.5-5.1) 05/22/19 04:31 Chloride 107 mmol/L (98-107) 05/22/19 04:31 Carbon Dioxide 31.7 mmol/L (21-32) 05/22/19 04:31 BUN 15 mg/dL (7-18) 05/22/19 04:31 Creatinine 0.87 mg/dL (0.70-1.30) 05/22/19 04:31 Est GFR (MDRD) Af Amer > 60 (>60) 05/22/19 04:31 Est GFR (MDRD) Non-Af > 60 (>60) 05/22/19 04:31 Glucose 82 mg/dL (65-99) 05/22/19 04:31 Lactic Acid 1.0 mmol/L (0.4-2.0) 05/17/19 12:42 Calcium 9.0 mg/dL (8.5-10.1) 05/22/19 04:31 Corrected Calcium 10.2 mg/dL (8.5-10.1) H 05/22/19 04:31 Magnesium 2.0 mg/dL (1.7-2.9) 05/18/19 06:06 Total Bilirubin 0.40 mg/dL (0.2-1.0) 05/22/19 04:31 AST 15 Units/L (15-37) 05/22/19 04:31 ALT 15 Units/L (12-78) 05/22/19 04:31 Alkaline Phosphatase 41 Units/L (46-116) L 05/22/19 04:31 Creatine Kinase 80 Units/L (39-308) 05/18/19 06:06 CK-MB (CK-2) < 1.0 ng/mL (0-4.0) 05/18/19 06:06 CK/CKMB % Calc 1.3 % (<4) 05/18/19 06:06 Troponin I < 0.02 ng/mL (0-1.5) 05/18/19 06:06 Total Protein 6.5 g/dL (6.4-8.2) 05/22/19 04:31 Albumin 2.5 g/dL (3.4-5.0) L 05/22/19 04:31 Globulin 4.0 g/dL (2.5-4.5) 05/22/19 04:31 Albumin/Globulin Ratio 0.6 Ratio (1.1-2.1) L 05/22/19 04:31 Specimen Type Catherized urine 05/17/19 12:12 Urine Color Yellow (YELLOW) 05/17/19 12:12 Urine Appearance Hazy (CLEAR) 05/17/19 12:12 Urine pH 9.0 (5.0 - 8.0) 05/17/19 12:12 Ur Specific [place] 1.015 (1.000-1.030) 05/17/19 12:12 Urine Protein Negative (NEGATIVE) 05/17/19 12:12 Urine Glucose (UA) Negative (NEGATIVE) 05/17/19 12:12 Urine Ketones 1+ (NEGATIVE) 05/17/19 12:12 Urine Occult Blood Negative (NEGATIVE) 05/17/19 12:12 Urine Nitrite Negative (NEGATIVE) 05/17/19 12:12 Urine Bilirubin Negative (NEGATIVE) 05/17/19 12:12 Urine Urobilinogen 2+ (NORMAL) 05/17/19 12:12 Ur Leukocyte Esterase 1+ (NEGATIVE) 05/17/19 12:12 Urine RBC None seen /HPF (0-3) 05/17/19 12:12 Urine WBC 0-2 /HPF (0-5) 05/17/19 12:12 Ur Squamous Epith Cells Negative /HPF (NEGATIVE) 03/27/20 12:12 Urine Bacteria Negative /HPF (NEGATIVE) 05/17/19 12:12 Ur Culture Indicated? No/not indicated 05/17/19 12:12 RSV Nasal Swab Negative (NEGATIVE) 05/17/19 08:45 Influenza Type A (PCR) Negative (NEGATIVE) 05/17/19 08:45 Influenza Type B (PCR) Negative (NEGATIVE) 05/17/19 08:45 S. pyogenes (TEM-PCR) Not detected (NOT DETECT) 05/17/19 08:45 - Plan (1) Bronchopneumonia Status: Acute Plan: NORMAL SALINE AT 75 ML/HR, FORTAZ 1G IV Q8H, LEVAQUIN 500MG IV DAILY, RESPIRATORY TX, AND HOME MEDICATIONS WERE RESUMED
--- NOTE | 2019-05-22 09:46 | PCM.PROG ---
Progress Note - Progress Note for Day of Date of Exam: 05/22/19 - Subjective Subjective: WAS ADMITTED FOR BRONCHOPNEUMONIA. TODAY, HE IS LYING IN BED WITH EYES CLOSED ON MORNING ROUNDS. HE AWAKENS EASILY TO VERBAL STIMULI. HE CONTINUES WITH COUGH AND SHORTNESS OF BREATH. ON EXAMINATION, HEART IS REGULAR IN RATE AND RHYTHM. BILATERAL LUNGS ARE NOTED WITH SCATTERED WHEEZING. ABDOMEN IS ROUND, SOFT, AND NON-TENDER WITH NORMAL BOWEL SOUNDS NOTED IN ALL QUADRANTS. HIS VITALS THIS MORNING ARE: 98.7-63-20-98%-122/56. LABS WERE OBTAINED. ABNORMAL LAB VALUES INCLUDE THE FOLLOWING: RBC 3.84, HGB 11.8, HCT 34.8, PLT COUNT 130, ALK PHOS 41, ALBUMIN 2.5. A CHEST XRAY WAS OBTAINED AND REVEALED: Prominent heart size and chronic lung changes. Developing basilar infection not excluded. Follow-up to resolution. SPUTUM CULTURE REVEALS GROWTH OF MORGANELLA MORGANII. BLOOD CULTURES ARE PENDING. HE IS CURRENTLY RECIVING IV FORTAZ, IV LEVAQUIN, RESPIRATORY TX, SUPPLEMENTAL OXYGEN, AND HOME MEDICATIONS WERE RESUMED. WE WILL CONTINUE WITH CURRENT PLAN OF CARE TODAY. OTHERWISE, WE PLAN TO FOLLOW UP WITH AM LABS AND CHEST XRAY AND CONTINUE TO MONITOR - Past Medical Family Social History Past Med/Fam/Surg Hx: No changes since H&P Allergies: Allergies No Known Drug Allergies Allergy (Verified 05/17/19 09:20) - Review of Systems ROS: No change since H&P - Vital Signs and I&O's Vital Signs: Temperature 98.7 F Pulse Rate [Left] 63 Pulse Rate 53 Respiratory Rate 20 Blood Pressure [Left Arm] 122/56 Blood Pressure 89/59 O2 Sat by Pulse Oximetry 99 Intake and Output: Intake & Output 05/19/19 05/20/19 05/21/19 05/22/19 11:59 11:59 11:59 11:59 Intake Total 2060 825 / 825 1290 / 1290 2299 / 2299 Output Total 102 / 102 / Balance 2060 723 / 723 1286 / 1286 2299 / 2299 - Physical Exam Oriented: Person Eyes: Normal Ear: Normal Nose: Normal Throat: Normal Respiratory: Generalized, Wheezes Cardiovascular: Normal : Normal Auscultation: Bowel Sounds: Normal Tenderness: Normal Skin: Normal Musculoskeletal: Sensory Deficit Psychiatric: Normal Mood Description: Calm Affect: Normal Speech Pattern: Aphasic - Laboratory and Diagnostics Result Diagrams: 05/22/19 04:31 05/22/19 04:31 Labs: 05/17/19 16:55 Sputum - Expectorated Sputum Sputum Culture - Final Morganella Morganii 05/17/19 16:55 Sputum - Expectorated Sputum - Final 05/17/19 12:42 Blood Blood Culture - Preliminary 05/17/19 12:47 Blood Blood Culture - Preliminary Laboratory WBC 3.6 X10^3/uL (3.6-10.0) 05/22/19 04:31 RBC 3.84 X10^6/uL (4.7-6.0) L 05/22/19 04:31 Hgb 11.8 g/dL (13.5-18.0) L 05/22/19 04:31 Hct 34.7 % (42.0-54.0) L 05/22/19 04:31 MCV 90.3 fL (80.0-100.0) 05/22/19 04:31 MCH 30.7 pg (27.0-34.0) 05/22/19 04:31 MCHC 34.0 g/dL (33.0-35.0) 05/22/19 04:31 RDW 13.9 % (11.6-16.5) 05/22/19 04:31 Plt Count 130 X10^3/uL (150.0-450.0) L 05/22/19 04:31 MPV 8.6 fL (7.4-11.0) 05/22/19 04:31 Neut % (Auto) 43.7 % (42.0-75.0) 05/22/19 04:31 Lymph % (Auto) 43.1 % (21.0-51.0) 05/22/19 04:31 Bennett % (Auto) 8.9 % (0.0-13.0) 05/22/19 04:31 Eos % (Auto) 3.5 % (0.9-2.9) H 05/22/19 04:31 Baso % (Auto) 0.8 % (0.2-1.0) 05/22/19 04:31 Neut # (Auto) 1.6 x10^3/uL (2.2-4.8) L 05/22/19 04:31 Lymph # (Auto) 1.6 X10^3/uL (1.3-2.9) 05/22/19 04:31 Bennett # (Auto) 0.3 x10^3/uL (0.3-0.8) 05/22/19 04:31 Eos # (Auto) 0.1 x10^3/uL (0.0-0.2) 05/22/19 04:31 Baso # (Auto) 0.0 X10^3/uL (0.0-0.1) 05/22/19 04:31 Absolute Nucleated RBC 0.2 /100WBC 05/22/19 04:31 Sodium 141 mmol/L (136-145) 05/22/19 04:31 Corrected Sodium TNP 05/22/19 04:31 Potassium 4.0 mmol/L (3.5-5.1) 05/22/19 04:31 Chloride 107 mmol/L (98-107) 05/22/19 04:31 Carbon Dioxide 31.7 mmol/L (21-32) 05/22/19 04:31 BUN 15 mg/dL (7-18) 05/22/19 04:31 Creatinine 0.87 mg/dL (0.70-1.30) 05/22/19 04:31 Est GFR (MDRD) Af Amer > 60 (>60) 05/22/19 04:31 Est GFR (MDRD) Non-Af > 60 (>60) 05/22/19 04:31 Glucose 82 mg/dL (65-99) 05/22/19 04:31 Lactic Acid 1.0 mmol/L (0.4-2.0) 05/17/19 12:42 Calcium 9.0 mg/dL (8.5-10.1) 05/22/19 04:31 Corrected Calcium 10.2 mg/dL (8.5-10.1) H 05/22/19 04:31 Magnesium 2.0 mg/dL (1.7-2.9) 05/18/19 06:06 Total Bilirubin 0.40 mg/dL (0.2-1.0) 05/22/19 04:31 AST 15 Units/L (15-37) 05/22/19 04:31 ALT 15 Units/L (12-78) 05/22/19 04:31 Alkaline Phosphatase 41 Units/L (46-116) L 05/22/19 04:31 Creatine Kinase 80 Units/L (39-308) 05/18/19 06:06 CK-MB (CK-2) < 1.0 ng/mL (0-4.0) 05/18/19 06:06 CK/CKMB % Calc 1.3 % (<4) 05/18/19 06:06 Troponin I < 0.02 ng/mL (0-1.5) 05/18/19 06:06 Total Protein 6.5 g/dL (6.4-8.2) 05/22/19 04:31 Albumin 2.5 g/dL (3.4-5.0) L 05/22/19 04:31 Globulin 4.0 g/dL (2.5-4.5) 05/22/19 04:31 Albumin/Globulin Ratio 0.6 Ratio (1.1-2.1) L 05/22/19 04:31 Specimen Type Catherized urine 05/17/19 12:12 Urine Color Yellow (YELLOW) 05/17/19 12:12 Urine Appearance Hazy (CLEAR) 05/17/19 12:12 Urine pH 9.0 (5.0 - 8.0) 05/17/19 12:12 Ur Specific Billingsley 1.015 (1.000-1.030) 05/17/19 12:12 Urine Protein Negative (NEGATIVE) 05/17/19 12:12 Urine Glucose (UA) Negative (NEGATIVE) 05/17/19 12:12 Urine Ketones 1+ (NEGATIVE) 05/17/19 12:12 Urine Occult Blood Negative (NEGATIVE) 05/17/19 12:12 Urine Nitrite Negative (NEGATIVE) 05/17/19 12:12 Urine Bilirubin Negative (NEGATIVE) 05/17/19 12:12 Urine Urobilinogen 2+ (NORMAL) 05/17/19 12:12 Ur Leukocyte Esterase 1+ (NEGATIVE) 05/17/19 12:12 Urine RBC None seen /HPF (0-3) 05/17/19 12:12 Urine WBC 0-2 /HPF (0-5) 05/17/19 12:12 Ur Squamous Epith Cells Negative /HPF (NEGATIVE) 05/17/19 12:12 Urine Bacteria Negative /HPF (NEGATIVE) 05/17/19 12:12 Ur Culture Indicated? No/not indicated 05/17/19 12:12 RSV Nasal Swab Negative (NEGATIVE) 05/17/19 08:45 Influenza Type A (PCR) Negative (NEGATIVE) 05/17/19 08:45 Influenza Type B (PCR) Negative (NEGATIVE) 05/17/19 08:45 S. pyogenes (TEM-PCR) Not detected (NOT DETECT) 05/17/19 08:45 - Plan (1) Bronchopneumonia Status: Acute Plan: NORMAL SALINE AT 75 ML/HR, FORTAZ 1G IV Q8H, LEVAQUIN 500MG IV DAILY, RESPIRATORY TX, AND HOME MEDICATIONS WERE RESUMED
[2019-05-22] MEDS: NS 1000 ML 1,000 ML IV SCH (13:40)
[2019-05-22] MEDS: NAMENDA TAB 10 MG PO SCH (21:21)
[2019-05-22] MEDS: ARICEPT TAB 10 MG PEG SCH (21:21)
[2019-05-23] MEDS: NS 1000 ML 1,000 ML IV SCH (01:12)
[2019-05-23] MEDS: ASTELIN NASAL SPRAY ENOSTRIL SCH ×2 (05:11→14:22)
[2019-05-23] MEDS: VALPROIC ACID PO SCH ×2 (05:12→14:22)
[2019-05-23] MEDS: FORTAZ or TAZICEF VIAL INJ 1 G in NS 100 ML IV + SPIKE MINIBAG* 100 ML IV SCH ×2 (05:12→14:36)
[2019-05-23 05:23] LABS: BASOPHILS % (AUTO) 0.6 % (0.2-1.0); EOSINOPHILS # (AUTO) 0.1 x10^3/uL (0.0-0.2); HEMATOCRIT 33.2 % (42.0-54.0); HEMOGLOBIN 11.4 g/dL (13.5-18.0); LYMPHOCYTES # (AUTO) 1.4 X10^3/uL (1.3-2.9); LYMPHOCYTES % (AUTO) 33.3 % (21.0-51.0); MEAN CORPUSCULAR HEMOGLOBIN 30.6 pg (27.0-34.0); MEAN CORPUSCULAR HGB CONC 34.4 g/dL (33.0-35.0); MEAN PLATELET VOLUME 8.1 fL (7.4-11.0); MONOCYTES # (AUTO) 0.3 x10^3/uL (0.3-0.8); MONOCYTES % (AUTO) 6.8 % (0.0-13.0); NEUTROPHILS # (AUTO) 2.3 x10^3/uL (2.2-4.8); NEUTROPHILS % (AUTO) 56.3 % (42.0-75.0); PLATELET COUNT 140 X10^3/uL (150.0-450.0); RED BLOOD COUNT 3.73 X10^6/uL (4.7-6.0); RED CELL DISTRIBUTION WIDTH 13.9 % (11.6-16.5); WHITE BLOOD COUNT 4.1 X10^3/uL (3.6-10.0)
[2019-05-23 05:33] LABS: ALANINE AMINOTRANSFERASE 15 Units/L (12-78); ALBUMIN 2.5 g/dL (3.4-5.0); ALKALINE PHOSPHATASE 41 Units/L (46-116); ASPARTATE AMINO TRANSFERASE 14 Units/L (15-37); BLOOD UREA NITROGEN 14 mg/dL (7-18); CALCIUM 8.8 mg/dL (8.5-10.1); CARBON DIOXIDE 30.1 mmol/L (21-32); CHLORIDE 105 mmol/L (98-107); CREATININE 0.88 mg/dL (0.70-1.30); SODIUM 140 mmol/L (136-145); TOTAL PROTEIN 6.3 g/dL (6.4-8.2); eGFR NON BLACK RACES > 60 (>60)
[2019-05-23] MEDS ORDERED: MICRO K EXTEN CAP 10 MEQ PO PRN (06:21)
[2019-05-23] MEDS ORDERED: POTASSIUM CHL 40 MEQ/NS 0.45% 500 ML IV PRN (06:21)
[2019-05-23] MEDS ORDERED: POTASSIUM CHL 60 MEQ/NS 0.45% 500 ML IV PRN (06:21)
[2019-05-23] MEDS ORDERED: KLOR-CON PO PRN (06:21)
[2019-05-23] MEDS ORDERED: POTASSIUM CHLORIDE LIQ 20 MEQ UDC PO PRN (06:21)
[2019-05-23] MEDS ORDERED: K-DUR TAB 20 MEQ PO PRN (06:21)
[2019-05-23] MEDS ORDERED: K-RIDER 10 MEQ/NS 100 ML 10 MEQ/100 ML BAG IV PRN (06:21)
--- NOTE | 2019-05-23 06:22 | RAD ---
HISTORYShortness of breathSTUDYCHEST, 1 [id number]/2020FINDINGSThe heart is within normal limits in size. The karla are normal. The lungs are free of acute alveolar infiltrates. No pleural effusions are identified. Bony thorax is unremarkable.IMPRESSIONLungs clearElectronically signed by: CALLUM MARTINEZ (May 23, 2019 06:20:58)
[2019-05-23] MEDS: MAGNESIUM SULFATE 1 GRAM/100 mL PREMIX 1 GM/100 ML BAG IV PRN ×2 (07:21→09:52)
[2019-05-23] MEDS: PROVENTIL NEB TX 0.083% 2.5MG/ 3ML NEB SCH (08:43)
[2019-05-23] MEDS: PULMICORT NEB TX 0.5 MG NEB SCH (08:43)
[2019-05-23] MEDS: LEVAQUIN PREMIX IV 500 MG 500 MG/100 ML BAG IV SCH (09:54)
[2019-05-23] MEDS: ELIQUIS NG SCH (09:55)
[2019-05-23] MEDS: COLACE SYRUP 100 MG UDC PEG SCH (09:55)
[2019-05-23] MEDS: SINGULAIR TAB 10 MG NG SCH (09:55)
[2019-05-23] MEDS: EFFEXOR XR 75 MG CAP 24-HR PO SCH (09:56)
[2019-05-23] MEDS: PROSCAR PO SCH (09:56)
[2019-05-23] MEDS: FLOMAX PO SCH (09:56)
[2019-05-23] MEDS: LASIX NG SCH (09:56)
[2019-05-23] MEDS: LOPRESSOR TAB 25 MG NG SCH (09:56)
[2019-05-23] MEDS: GEODON PO SCH (09:56)
[2019-05-23] MEDS: FLONASE NASAL SPRAY ENOSTRIL SCH (09:57)
[2019-05-23] MEDS: NAMENDA TAB 10 MG NG SCH (09:57)
[2019-05-23] MEDS: XANAX PEG SCH (09:58)
[2019-05-23] MEDS ORDERED: DULCOLAX SUPPOSITORY 10 MG RECTAL ONE (10:41)
[2019-05-23 12:08] VITALS: BP 97/54
[2019-05-23] MEDS: AVODART PO SCH (14:21)
[2019-05-23] MEDS: THIORIDAZINE 50 MG PO SCH (14:22)
== END 2019-05-23 14:45 | DRG 179 ==
LOC: ER 08:19 → MED/SURG 08:19
PROVIDERS: ADMIT Internal Medicine; ATTEND Internal Medicine
CPT/HCPCS: 36415; 51701; 71010; 71045; 80053; 81001; 82550; 82553; 83605; 83735; 84484; 85025; 87040; 87070; 87077; 87186; 87205; 87420; 87502; 87651; 93005; 94640; 94760; 96365; 96374; 96375; 97110; 97163; 97167; 99284; A4222; G0378; J0713; J1956; J3475; J7030; J7050; J7613; J7626; S0138

== ENCOUNTER 2019-06-15 09:28 | Inpatient (IN) ==
--- NOTE | 2019-06-15 09:48 | DR.SOBA ---
HPI Time Seen Time Seen by Provider: 06/15/19 09:37 HPI Comment HPI Comment: 74 yo CM w/ pmh of htn, dementia, chf, copd, dvt, cva presents w/ 1 day xh of increasing sob/ wheezing per snf. No CP or f/c. + non productive cough. Received labs yesterday but no ekg or cxr. Referred to Ed for further eval. Limited hx secondary to dementia. Complaints Chief Complaint:: MYESHA CALLED AND (BALJEET RODRIGEUZ , RN ) SHE STATES PT HAS > SOB, BILATERALLY WHEEZING , O2 2 LPM , LABS PERFORMED YESTERDAY AND STEVE HERRING CALLED AND PT IS TO COME TO ER AND BE WORKED UP IN ER COVID-19 Coronavirus symptoms experienced: Coughing and Shortness of Breath Reviewed Nurses Notes Reviewed: Yes Source History Provided: [facility] Mode of Arrival Mode of Arrival: Stretcher Timing Onset of Chief Complaint: 06/15/19 Context Onset:: At Rest PE Risk Factors:: Immobilization History of:: COPD, CHF and DVT/PE Currently on:: Inhaled Bronchodilators Prehospital Care:: O2 Modifying Factors Worsens:: Nothing Improves:: Nothing Associated Signs and Symptoms Associated Signs and Symptoms: Wheeze, Cough and Leg Swelling; denies Fever, H emoptysis and Chest Pain PMH PMH Past Medical History: Yes Past Medical History: Anxiety, COPD, CVA, Dementia, Depression, Diabetes, Dyslipidemia, GERD, Hypertension and Schizophrenia Past Surgical History: Yes Surgical History: Cholecystectomy Family History History of Family Medical Conditions: Yes Family Medical History: Diabetes Mellitus, Coronary Artery Disease and Hyperte nsion Social History Does patient currently use any type of tobacco product: No Have you used tobacco products in the last 12 months: No Type of Tobacco Use: None Does any household member use tobacco: No Alcohol Use: None Do you use any recreational Drugs:: No Lives With: Family Lives Where: Home Infectious screening In the last 2 months have you had wt loss of >10#?: NO Have you had fever, night sweats or hemotysis?: No Have you traveled outside the country in the last 6 months?: No Isolation: Standard ROS Review of Systems Respiratoy: Non-Productive Cough and Short of Breath Unable to Obtain Due To: Dementia PE Vital Signs Vitals: Temperature 98.3 F Pulse Rate 98 Respiratory Rate 35 Blood Pressure [Left Arm] 97/54 Blood Pressure 106/57 O2 Sat by Pulse Oximetry 95 General Limitations: No Limitations General Appearance: Other Head Head Exam: Normal Inspection Eyes Eye exam: Normal Appearance ENT ENT Exam: Normal Exam Neck Neck Exam: Normal Inspection Chest Chest Inspection: Normal Inspection Respiratory Respiratory Exam: Normal Lung Sounds Bilat Respiratory Exam: Bilateral: Rales and Bilateral: Crackles Cardiovascular Cardiovascular Exam: Tachycardia; negative Irregular Rhythm, Systolic Murmur and Diastolic Murmur Abdominal Exam Abdominal Exam: Normal Inspection, Normal Bowel Sounds and Soft Extremities Extremities Exam: Edema; negative Tenderness, Joint Swelling and Calf Tenderness Back Back Exam: Normal Inspection Neurologic Neurological Exam: Alert and Other (non verbal. Moans occasionally. does not answer questions. ); negative Oriented X3 Psychiatric Psychiatric Exam: Other (limited exam ) Skin Skin Exam: Warm, Dry, Intact and Normal Color MDM Additional Information Obtained Additional Information Obtained From: Old Records Differential Diagnosis Differential Diagnosis: Asthma, Bronchitis, CHF, COPD, Mycardial Infarction, Pneumonia, Respiratory Failure and URI COURSE Treatment Treatment: 74 yo m pmg cva, chf, copd, dementia presented w/ increasing SOB. Pulse ox mid 90's on 2L NC on arrival, mild- mod RD and rales/ crackles heard bilaterally. 40 mg Lasix given, steroid/ duonebs given w/ improvement of respiratory distress on serial eval. CXR obtained which demonstrated ? increased interstitial markings h/e no infiltrate. Clinically appeared fluid overloaded on arrival. EKG w/ old LBBB w/o acute changes. TNI wnl. No leukocytosis or fever. Mild lymphopenia noted, no elevated transaminases, lactic acid mildly elevated, LDH wnl. Will opt to admit for copd exacerbation. Will need continued steroids and azithromycin. 1127: d/w Dr Vallejo whom agrees to admit. ROR Labs Reviewed Laboratory Results Reviewed?: Yes Result Diagrams: 06/15/19 10:02 06/15/19 10:02 Laboratory: WBC 9.5 X10^3/uL (3.6-10.0) 06/15/19 10:02 RBC 4.24 X10^6/uL (4.7-6.0) L 06/15/19 10:02 Hgb 13.1 g/dL (13.5-18.0) L 06/15/19 10:02 Hct 38.0 % (42.0-54.0) L 06/15/19 10:02 MCV 89.5 fL (80.0-100.0) 06/15/19 10:02 MCH 30.9 pg (27.0-34.0) 06/15/19 10:02 MCHC 34.5 g/dL (33.0-35.0) 06/15/19 10:02 RDW 14.1 % (11.6-16.5) 06/15/19 10:02 Plt Count 121 X10^3/uL (150.0-450.0) L 06/15/19 10:02 MPV 8.5 fL (7.4-11.0) 06/15/19 10:02 Neut % (Auto) 82.3 % (42.0-75.0) H 06/15/19 10:02 Lymph % (Auto) 8.2 % (21.0-51.0) L 06/15/19 10:02 Milam % (Auto) 8.6 % (0.0-13.0) 06/15/19 10:02 Eos % (Auto) 0.6 % (0.9-2.9) L 06/15/19 10:02 Baso % (Auto) 0.3 % (0.2-1.0) 06/15/19 10:02 Neut # (Auto) 7.8 x10^3/uL (2.2-4.8) H 06/15/19 10:02 Lymph # (Auto) 0.8 X10^3/uL (1.3-2.9) L 06/15/19 10:02 Milam # (Auto) 0.8 x10^3/uL (0.3-0.8) 06/15/19 10:02 Eos # (Auto) 0.1 x10^3/uL (0.0-0.2) 06/15/19 10:02 Baso # (Auto) 0.0 X10^3/uL (0.0-0.1) 06/15/19 10:02 Absolute Nucleated RBC 0.0 /100WBC 06/15/19 10:02 Sodium 134 mmol/L (136-145) L 06/15/19 10:02 Corrected Sodium TNP 06/15/19 10:02 Potassium 4.2 mmol/L (3.5-5.1) 06/15/19 10:02 Chloride 98 mmol/L (98-107) 06/15/19 10:02 Carbon Dioxide 28.3 mmol/L (21-32) 06/15/19 10:02 BUN 15 mg/dL (7-18) 06/15/19 10:02 Creatinine 1.25 mg/dL (0.70-1.30) 06/15/19 10:02 Est GFR (MDRD) Af Amer > 60 (>60) 06/15/19 10:02 Est GFR (MDRD) Non-Af 60 (>60) 06/15/19 10:02 Glucose 101 mg/dL (65-99) H 06/15/19 10:02 Lactic Acid 2.3 mmol/L (0.4-2.0) H 06/15/19 10:02 Calcium 9.2 mg/dL (8.5-10.1) 06/15/19 10:02 Corrected Calcium 10.0 mg/dL (8.5-10.1) 06/15/19 10:02 Total Bilirubin 0.70 mg/dL (0.2-1.0) 06/15/19 10:02 AST 16 Units/L (15-37) 06/15/19 10:02 ALT 15 Units/L (12-78) 06/15/19 10:02 Alkaline Phosphatase 50 Units/L (46-116) 06/15/19 10:02 Lactate Dehydrogenase 167 Units/L (85-227) 06/15/19 10:02 Creatine Kinase 75 Units/L (39-308) 06/15/19 10:02 CK-MB (CK-2) 1.0 ng/mL (0-4.0) 06/15/19 10:02 CK/CKMB % Calc 1.3 % (<4) 06/15/19 10:02 Troponin I < 0.02 ng/mL (0-1.5) 06/15/19 10:02 B-Natriuretic Peptide 90.5 pg/mL (0-79) H 06/15/19 10:02 Total Protein 7.6 g/dL (6.4-8.2) 06/15/19 10:02 Albumin 3.0 g/dL (3.4-5.0) L 06/15/19 10:02 Globulin 4.6 g/dL (2.5-4.5) H 06/15/19 10:02 Albumin/Globulin Ratio 0.7 Ratio (1.1-2.1) L 06/15/19 10:02 XRAY XRAY Interpreted by: Self X-ray Results: mild increased pvc/ intersticial markings, mild pulmonary edema, cmg, no infiltrate. EKG Compared to prior EKG Dated: 05/21/19 Rate: 105 Rhythm: ST Block: LBBB Hypertrophy: None ST: Nonsp Opioid Opioid Risk Tool Age (Larry box if 16-45): No History of Preadolescent Sexual Abuse: No Total: 0 Total Score Risk Category: Low Risk Copyright: Hang CALLAHAN predicting aberrant behaviors Diagnosis Discharge Problem: Acute exacerbation of chronic obstructive pulmonary disease Acute CHF Qualifiers: Heart failure type: unspecified Qualified Code(s): I50.9 - Heart failure, unspecified
[2019-06-15] MEDS ORDERED: SOLU-Medrol 125 MG VIAL ONE (09:49)
[2019-06-15] MEDS ORDERED: DUONEB 0.5 MG/3 MG (3 mL) NEB ONE ×2 (09:49→09:52)
[2019-06-15] MEDS ORDERED: SOLU-Medrol 125 MG VIAL IVP ONE (09:52)
[2019-06-15] MEDS ORDERED: LASIX IVP ONE ×2 (10:09)
[2019-06-15 10:13] LABS: BASOPHILS % (AUTO) 0.3 % (0.2-1.0); EOSINOPHILS # (AUTO) 0.1 x10^3/uL (0.0-0.2); EOSINOPHILS % (AUTO) 0.6 % (0.9-2.9); HEMOGLOBIN 13.1 g/dL (13.5-18.0); LYMPHOCYTES # (AUTO) 0.8 X10^3/uL (1.3-2.9); LYMPHOCYTES % (AUTO) 8.2 % (21.0-51.0); MEAN CORPUSCULAR HEMOGLOBIN 30.9 pg (27.0-34.0); MEAN CORPUSCULAR HGB CONC 34.5 g/dL (33.0-35.0); MEAN CORPUSCULAR VOLUME 89.5 fL (80.0-100.0); MEAN PLATELET VOLUME 8.5 fL (7.4-11.0); MONOCYTES # (AUTO) 0.8 x10^3/uL (0.3-0.8); MONOCYTES % (AUTO) 8.6 % (0.0-13.0); NEUTROPHILS # (AUTO) 7.8 x10^3/uL (2.2-4.8); NEUTROPHILS % (AUTO) 82.3 % (42.0-75.0); PLATELET COUNT 121 X10^3/uL (150.0-450.0); RED BLOOD COUNT 4.24 X10^6/uL (4.7-6.0); RED CELL DISTRIBUTION WIDTH 14.1 % (11.6-16.5); WHITE BLOOD COUNT 9.5 X10^3/uL (3.6-10.0)
[2019-06-15 10:28] LABS: BLOOD UREA NITROGEN 15 mg/dL (7-18); CALCIUM 9.2 mg/dL (8.5-10.1); CARBON DIOXIDE 28.3 mmol/L (21-32); CHLORIDE 98 mmol/L (98-107); CREATININE 1.25 mg/dL (0.70-1.30); SODIUM 134 mmol/L (136-145); TROPONIN I < 0.02 ng/mL (0-1.5); eGFR NON BLACK RACES 60 (>60)
[2019-06-15 10:32] LABS: ALANINE AMINOTRANSFERASE 15 Units/L (12-78); ALKALINE PHOSPHATASE 50 Units/L (46-116); ASPARTATE AMINO TRANSFERASE 16 Units/L (15-37); CKMB % 1.3 % (<4); CREATINE KINASE 75 Units/L (39-308); TOTAL PROTEIN 7.6 g/dL (6.4-8.2)
--- NOTE | 2019-06-15 10:32 | RAD ---
HISTORYSOBSTUDYPortable AP [id number] normal heart size with clear lungs and pleural spaces. The re is no mediastinal or hilar lesion.IMPRESSIONNo interval change or acute abnormality demonstrated.E lectronically signed by: FELIPA GOMEZ (Jun 15, 2019 10:31:19)
[2019-06-15] MEDS ORDERED: NS 250 ML IV 250 ML IV ONE (11:43)
[2019-06-15] MEDS ORDERED: ZITHROMAX INJ 500 MG VIAL IV ONE (11:43)
[2019-06-15] MEDS: ZITHROMAX INJ 500 MG VIAL 500 MG in NS 250 ML IV 250 ML IV SCH (11:53)
[2019-06-15] MEDS: DUONEB 0.5 MG/3 MG (3 mL) NEB SCH ×2 (14:30→17:00)
[2019-06-15 19:49] VITALS: BMI 24.1
[2019-06-15] MEDS: PULMICORT NEB TX 0.5 MG NEB SCH (21:40)
[2019-06-16] MEDS: DUONEB 0.5 MG/3 MG (3 mL) NEB SCH ×2 (00:37→05:38)
[2019-06-16 06:55] LABS: BASOPHILS % (AUTO) 0.1 % (0.2-1.0); HEMATOCRIT 34.2 % (42.0-54.0); LYMPHOCYTES # (AUTO) 0.6 X10^3/uL (1.3-2.9); LYMPHOCYTES % (AUTO) 5.8 % (21.0-51.0); MEAN CORPUSCULAR HEMOGLOBIN 30.9 pg (27.0-34.0); MEAN CORPUSCULAR HGB CONC 35.1 g/dL (33.0-35.0); MEAN CORPUSCULAR VOLUME 88.2 fL (80.0-100.0); MEAN PLATELET VOLUME 9.2 fL (7.4-11.0); MONOCYTES # (AUTO) 0.5 x10^3/uL (0.3-0.8); MONOCYTES % (AUTO) 5.4 % (0.0-13.0); NEUTROPHILS % (AUTO) 88.7 % (42.0-75.0); PLATELET COUNT 100 X10^3/uL (150.0-450.0); RED BLOOD COUNT 3.88 X10^6/uL (4.7-6.0); RED CELL DISTRIBUTION WIDTH 13.4 % (11.6-16.5); WHITE BLOOD COUNT 10.1 X10^3/uL (3.6-10.0)
--- NOTE | 2019-06-16 07:03 | RAD ---
HISTORYCHF and shortness of breathSTUDYSingle-view [id number]/2020FINDINGSThe trachea is midline. The cardiac silhouette is enlarged with a tortuous thoracic aorta. Chronic interstitial lung changes throughout the right and left delbert thorax are observed and stable.. The bony thorax is unremarkable.IMPRESSIONNo acute cardiopulmonary disease.Electronically signed by: JAQUELIN ROGERS (Jun 16, 2019 07:02:15)
[2019-06-16 07:09] LABS: ALANINE AMINOTRANSFERASE 14 Units/L (12-78); ALBUMIN 2.7 g/dL (3.4-5.0); ALKALINE PHOSPHATASE 48 Units/L (46-116); ASPARTATE AMINO TRANSFERASE 13 Units/L (15-37); BLOOD UREA NITROGEN 26 mg/dL (7-18); CALCIUM 9.6 mg/dL (8.5-10.1); CARBON DIOXIDE 28.9 mmol/L (21-32); CHLORIDE 98 mmol/L (98-107); COR CA(FOR HYPOALB) 10.6 mg/dL (8.5-10.1); COR NA(FOR HYPERGLY) 137 mmol/L (136-145); CREATININE 1.26 mg/dL (0.70-1.30); SODIUM 136 mmol/L (136-145); TOTAL PROTEIN 7.1 g/dL (6.4-8.2); eGFR NON BLACK RACES 59 (>60)
[2019-06-16] MEDS: LASIX IVP SCH (08:46)
[2019-06-16] MEDS: PREDNISONE TAB 10 MG PO SCH (08:47)
[2019-06-16] MEDS: PULMICORT NEB TX 0.5 MG NEB SCH ×2 (08:50→20:45)
[2019-06-16] MEDS: LOPRESSOR TAB 25 MG PO SCH ×2 (09:49→22:36)
[2019-06-16] MEDS: ELIQUIS PO SCH ×2 (09:49→22:36)
[2019-06-16] MEDS: ZITHROMAX INJ 500 MG VIAL 500 MG in NS 250 ML IV 250 ML IV SCH (10:48)
[2019-06-16] MEDS: XOPENEX 1.25 MG/3 ML NEBULE NEB SCH ×2 (12:10→17:15)
[2019-06-16] MEDS ORDERED: MILK OF MAGNESIA PO PRN (15:57)
[2019-06-16] MEDS ORDERED: NS IV SCH (21:00)
[2019-06-16] MEDS ORDERED: DEPAKENE IV SCH (21:00)
[2019-06-16] MEDS: ARICEPT TAB 10 MG GT SCH (22:35)
[2019-06-16] MEDS: FLONASE NASAL SPRAY ENOSTRIL SCH (22:36)
[2019-06-16] MEDS: GEODON PO SCH (22:36)
[2019-06-16] MEDS: NAMENDA TAB 10 MG GT SCH (22:36)
[2019-06-16] MEDS: ARTIFICIAL TEARS DROPS EACHEYE SCH (22:36)
[2019-06-16] MEDS: ASTELIN NASAL SPRAY ENOSTRIL SCH (22:37)
[2019-06-16] MEDS: XANAX GT SCH (22:37)
[2019-06-17] MEDS: XOPENEX 1.25 MG/3 ML NEBULE NEB SCH ×4 (00:55→18:01)
[2019-06-17] MEDS: ASTELIN NASAL SPRAY ENOSTRIL SCH ×3 (05:25→21:05)
--- NOTE | 2019-06-17 06:20 | RAD ---
HISTORYFollow-up congestive heart fatSTUDYCHEST, 1 [id number]/26/2020FINDINGSThe heart is within normal limits in size. The karla are normal. The lungs are mildly hypoinflated. There has been interval development of a right medial basal infiltrate since the prior examination. The remainder of the lung desai are clear. No pleural effusions are identified. Bony thorax is unremarkable.IMPRESSIONInterval development of a right basilar infiltrate since the prior examinationElectronically signed by: CALLUM MARTINEZ (Jun 17, 2019 06:18:44)
[2019-06-17 06:37] LABS: BASOPHILS % (AUTO) 0.3 % (0.2-1.0); EOSINOPHILS % (AUTO) 0.1 % (0.9-2.9); HEMATOCRIT 35.4 % (42.0-54.0); HEMOGLOBIN 12.1 g/dL (13.5-18.0); LYMPHOCYTES # (AUTO) 1.3 X10^3/uL (1.3-2.9); MEAN CORPUSCULAR HEMOGLOBIN 30.7 pg (27.0-34.0); MEAN CORPUSCULAR HGB CONC 34.1 g/dL (33.0-35.0); MONOCYTES # (AUTO) 0.3 x10^3/uL (0.3-0.8); MONOCYTES % (AUTO) 3.4 % (0.0-13.0); NEUTROPHILS # (AUTO) 6.9 x10^3/uL (2.2-4.8); NEUTROPHILS % (AUTO) 81.2 % (42.0-75.0); PLATELET COUNT 131 X10^3/uL (150.0-450.0); RED BLOOD COUNT 3.93 X10^6/uL (4.7-6.0); RED CELL DISTRIBUTION WIDTH 13.9 % (11.6-16.5); WHITE BLOOD COUNT 8.6 X10^3/uL (3.6-10.0)
[2019-06-17 06:58] LABS: ALANINE AMINOTRANSFERASE 23 Units/L (12-78); ALBUMIN 2.8 g/dL (3.4-5.0); ALKALINE PHOSPHATASE 45 Units/L (46-116); ASPARTATE AMINO TRANSFERASE 18 Units/L (15-37); BLOOD UREA NITROGEN 23 mg/dL (7-18); CALCIUM 9.4 mg/dL (8.5-10.1); CARBON DIOXIDE 30.1 mmol/L (21-32); CHLORIDE 101 mmol/L (98-107); COR CA(FOR HYPOALB) 10.4 mg/dL (8.5-10.1); CREATININE 1.08 mg/dL (0.70-1.30); SODIUM 138 mmol/L (136-145); TOTAL PROTEIN 7.1 g/dL (6.4-8.2); eGFR NON BLACK RACES > 60 (>60)
[2019-06-17 07:39] LABS: ERYTHROCYTE SEDIMENTATION RATE 57 MM/HOUR (0-15)
[2019-06-17] MEDS: ARTIFICIAL TEARS DROPS EACHEYE SCH ×2 (08:46→21:00)
[2019-06-17] MEDS ORDERED: POTASSIUM CHLORIDE LIQ 20 MEQ UDC ONE (08:52)
[2019-06-17] MEDS ORDERED: K-DUR TAB 20 MEQ PO PRN (08:57)
[2019-06-17] MEDS ORDERED: POTASSIUM CHL 60 MEQ/NS 0.45% 500 ML IV PRN (08:57)
[2019-06-17] MEDS ORDERED: POTASSIUM CHL 40 MEQ/NS 0.45% 500 ML IV PRN (08:57)
[2019-06-17] MEDS ORDERED: MICRO K EXTEN CAP 10 MEQ PO PRN (08:57)
[2019-06-17] MEDS ORDERED: POTASSIUM CHLORIDE LIQ 20 MEQ UDC PO PRN (08:57)
[2019-06-17] MEDS ORDERED: K-RIDER 10 MEQ/NS 100 ML 10 MEQ/100 ML BAG IV PRN (08:57)
[2019-06-17] MEDS ORDERED: KLOR-CON PO PRN (08:57)
[2019-06-17] MEDS ORDERED: MAGNESIUM SULFATE 1 GRAM/100 mL PREMIX 1 GM/100 ML BAG IV PRN (08:57)
[2019-06-17] MEDS: EFFEXOR XR 75 MG CAP 24-HR PO SCH (09:02)
[2019-06-17] MEDS: LOPRESSOR TAB 25 MG PO SCH ×2 (09:02→21:01)
[2019-06-17] MEDS: XANAX GT SCH ×2 (09:03→21:03)
[2019-06-17] MEDS: PREDNISONE TAB 10 MG PO SCH (09:03)
[2019-06-17] MEDS: SINGULAIR TAB 10 MG GT SCH (09:03)
[2019-06-17] MEDS: NAMENDA TAB 10 MG GT SCH ×2 (09:04→21:01)
[2019-06-17] MEDS: PROSCAR PO SCH (09:05)
[2019-06-17] MEDS: FLOMAX PO SCH (09:06)
[2019-06-17] MEDS: FLONASE NASAL SPRAY ENOSTRIL SCH ×2 (09:06→21:02)
[2019-06-17] MEDS: ELIQUIS PO SCH ×2 (09:06→21:00)
[2019-06-17] MEDS: LASIX IVP SCH (09:07)
[2019-06-17] MEDS: PATIENT'S HOME MEDICATION PO SCH ×3 (09:08→21:03)
[2019-06-17] MEDS: GEODON PO SCH ×2 (09:24→21:02)
[2019-06-17] MEDS ORDERED: NS 250 ML IV 250 ML IV PRN (09:26)
[2019-06-17] MEDS ORDERED: NS 100 ML IV + SPIKE MINIBAG* 100 ML IV ONE ×2 (09:29→13:45)
[2019-06-17] MEDS ORDERED: NS 250 ML IV 250 ML IV ONE (09:29)
[2019-06-17] MEDS: FORTAZ or TAZICEF VIAL INJ 1 G in NS 100 ML IV + SPIKE MINIBAG* 100 ML IV SCH ×3 (09:32→21:05)
[2019-06-17] MEDS ORDERED: VALPROIC ACID Feeding Tube SCH (09:45)
[2019-06-17] MEDS: COLACE SYRUP 100 MG UDC PEG SCH (09:52)
--- NOTE | 2019-06-17 10:45 | DR.H&P ---
H&P - History & Physical for Day of: H&P Date: 06/15/19 - Chief Complaint Chief Complaint: COUGH, SOB, WHEEZING - History of Present Illness History of Present Illness: IS A 74 YEAR OLD PATIENT OF OURS. HE IS A RESIDENT OF [facility]. HE PRESENTED TO THE ER WITH COMPLAINTS OF SHORTNESS OF BREATH, WHEEZING, AND COUGH. STAFF DENIES FEVER. HE HAS A PMH OF ANXIETY, COPD, CVA, DEMENTIA, DEPRESSION, DIABETES, DYSLIPIDEMIA, GERD, AND HTN. HE IS APHASIC A RESULT OF THE CVA. SYMPTOMS STARTED UPON PATIENT AWAKENING THIS MORNING. ON ARRIVAL TO THE ER, VITALS WERE 98.3-108-35-95%NC-163/113. LABS WERE OBTAINED. ABNORMAL LAB VALUES INCLUDE THE FOLLOWING: RBC 4.24, HGB 13.1, HCT 38.0, PLT COUNT 121, SODIUM 134, GLUCOSE 101, BNP 90.5, ALBUMIN 3.0, GLOBULIN 4.6. BLOOD CULTURES WERE SET UP. HE WAS SWABBED FOR COVID-19. A CHEST XRAY WAS OBTAINED AND REVEALED: NO INTERVAL CHANGE OR ACUTE ABNORMALITY DEMONSTRATED. EKG REVEALED: SINUS TACHYCARDIA WITH HR 105. HE WAS GIVEN LASIX 40MG IV X 1, SOLU-MEDROL 125MG IV X 1, A RESPIRATORY TX WITHOUT IMPROVEMENT IN SYMPTOMS. HE WAS ADMITTED FOR FURTHER EVALUATION AND TREATMENT OF CHF EXACERBATION AND COPD WITH ACUTE BRONCHITIS. HE WAS STARTED ON AZITHROMYCIN 500MG IV DAILY, PULMICORT AND XOPENEX NEB TX, SUPPLEMENTAL OXYGEN, AND HOME MEDICATIONS WERE RESUMED. WE WILL FOLLOW UP WITH AM LABS AND CHEST XRAY. OTHERWISE, WE WILL CONTINUE TO MONITOR. - Past Medical History Past Medical History: Hypertension, Dyslipidemia, Diabetes, Schizophrenia, Dementia, Depression, Anxiety, CVA, COPD, GERD Additional Medical History: Prostate Cancer, Chronic Cholelithiasis - Past Surgical History Surgical History: Cholecystectomy Additional Surgical History: Prostatectomy, Hiatal Hernia Repair, Left Knee - Family History Family Medical History: Diabetes Mellitus, Coronary Artery Disease, Hypertension - Social History Does patient currently use any type of tobacco product: No Have you used tobacco products in the last 12 months: No Type of Tobacco Use: None Does any household member use tobacco: No Alcohol Use: None Drug Use: None - Medications Home Medications: No Known Drug Allergies Allergy (Verified 05/17/19 09:20) CONTINUE taking the following medications ciprofloxacin HCl 500 mg FEEDING TUBE BID 04/25/20 [History] - Review of Systems Constitutional: Weakness Eyes: No Symptoms Reported ENT: No Symptoms Reported Respiratory: See HPI, Cough, Shortness of Breath, SOB with Excertion, Wheezing Cardiovascular: No Symptoms Reported Gastrointestinal: No Symptoms Reported Genitourinary: No Symptoms Reported Musculoskeletal: No Symptoms Reported Skin: No Symptoms Reported Neurological: See HPI, Weakness - Physical Exam Vital Signs: Temperature 98.7 F Pulse Rate [Apical] 86 Pulse Rate 72 Respiratory Rate 19 Blood Pressure [Left Arm] 109/57 Blood Pressure 95/55 O2 Sat by Pulse Oximetry 98 Oriented: Unable to test Eyes: Normal Ear: Normal Nose: Normal Throat: Normal Respiratory: Wheezes Throughout Cardiovascular: Tachycardia. negative: S3, S4, Murmur : Normal Auscultation: Bowel Sounds: Normal Palpation: Normal Tenderness: Normal Skin: Normal Musculoskeletal: Motor Deficit Psychiatric: Normal Mood Description: Calm Affect: Normal Speech Pattern: Aphasic - Assessment/Plan (1) COPD with acute bronchitis Status: Acute Plan: ADMIT, AZITHROMYCIN 500MG IV DAILY, PULMICORT AND XOPENEX NEB TX, SUPPLEMENTAL OXYGEN, (2) Acute CHF Qualifiers: Heart failure type: unspecified Qualified Code(s): I50.9 - Heart failure, unspecified Status: Acute Plan: LASIX 40MG IV DAILY, CONTINUE TO MONITOR (3) Generalized weakness Status: Acute (4) Hypertension Qualifiers: Hypertension type: essential hypertension Status: Chronic Plan: CONTINUE HOME MEDS (5) Dementia Qualifiers: Dementia type: vascular dementia Dementia behavioral disturbance: with behavioral disturbance Qualified Code(s): F01.51 - Vascular dementia with behavioral disturbance Status: Chronic Plan: CONTINUE HOME MEDS (6) Depression Qualifiers: Depression Type: unspecified Qualified Code(s): F32.9 - Major depressive disorder, single episode, unspecified Status: Chronic Plan: CONTINUE HOME MEDS (7) History of CVA (cerebrovascular accident) Status: Chronic Plan: CONTINUE HOME MEDS (8) GERD (gastroesophageal reflux disease) Qualifiers: Esophagitis presence: esophagitis presence not specified Status: Chronic Plan: CONTINUE HOME MEDS - Review H&P Reviewed: Yes Patient was examined?: Yes - Allergies Allergies/Adverse Reactions: Allergies Allergy/AdvReac Type Severity Reaction Status Date / Time No Known Drug Allergies Allergy Verified 05/17/19 09:20
[2019-06-17] MEDS: PULMICORT NEB TX 0.5 MG NEB SCH ×2 (12:00→21:36)
[2019-06-17] MEDS ORDERED: PHARMACY CONSULT LTC MEDICATIONS XX SCH (12:00)
[2019-06-17] MEDS ORDERED: ASTELIN NASAL SPRAY ENOSTRIL ONE (13:46)
--- NOTE | 2019-06-17 16:20 | PCM.PROG ---
Progress Note - Progress Note for Day of Date of Exam: 06/16/19 - Subjective Subjective: IS BEING TREATED FOR CHF EXACERBATIONS AND COPD WITH ACUTE BRONCHITIS. TODAY, HE IS ALERT, LYING IN BED ON MORNING ROUNDS. HE CONTINUES WITH COUGH AND WHEEZING TODAY. ON EXAMINATION, HEART IS REGULAR IN RATE AND RHYTHM. BILATERAL LUNGS ARE NOTED WITH SCATTERED WHEEZING THROUGHOUT. ABDOMEN IS ROUND, SOFT, AND NON-TENDER WITH NORMAL BOWEL SOUNDS NOTED IN ALL QUADRNATS. HIS VITALS THIS MORNING ARE: 98.1-66-20-100%-108/55. LABS WERE OBTAINED. ABNORMAL LAB VALUES INCLUDE THE FOLLOWING: WBC 10.1, RBC 3.88, HGB 12.0, HCT 34.2, PLT COUNT 100, BUN 26, GLUCOSE 127, AST 13, ALBUMIN 2.7. COVID 19 PENDING. BLOOD CULTURES ARE PENDING. A CHEST XRAY WAS OBTAINED THIS MORNING AND REVEALED: The trachea is midline. The cardiac silhouette is enlarged with a tortuous thoracic aorta. Chronic interstitial lung changes throughout the right and left delbert thorax are observed and stable. The bony thorax is unremarkable. HE IS CURRENTLY RECEIVING AZITHROMYCIN 500MG IV DAILY, PULMICORT AND XOPENEX NEB [place], SUPPLEMENTAL OXYGEN, AND HOME MEDICATIONS WERE RESUMED. TODAY, WE WILL ADD PREDNISONE 40MG PO DAILY. OTHERWISE, WE PLAN TO FOLLOW UP WITH AM LABS AND CHEST XRAY AND CONTINUE TO MONITOR. - Past Medical Family Social History Past Med/Fam/Surg Hx: No changes since H&P Allergies: Allergies No Known Drug Allergies Allergy (Verified 05/17/19 09:20) - Review of Systems ROS: No change since H&P - Vital Signs and I&O's Vital Signs: Temperature 97.9 F Pulse Rate [Apical] 81 Pulse Rate 96 Respiratory Rate 22 Blood Pressure [Left Arm] 91/50 Blood Pressure 95/55 O2 Sat by Pulse Oximetry 94 Intake and Output: Intake & Output 06/15/19 06/16/19 06/17/19 06/18/19 11:59 11:59 11:59 11:59 Intake Total 0 / 0 1506 / 1506 1064 / 1064 Balance 0 / 0 1506 / 1506 1064 / 1064 - Physical Exam Oriented: Unable to test Eyes: Normal Ear: Normal Nose: Normal Throat: Normal Respiratory: Generalized, Wheezes Cardiovascular: Tachycardia. negative: S3, S4, Murmur : Normal Auscultation: Bowel Sounds: Normal Palpation: Normal Tenderness: Normal Skin: Normal Musculoskeletal: Motor Deficit Psychiatric: Normal Mood Description: Calm Affect: Normal Speech Pattern: Aphasic - Laboratory and Diagnostics Result Diagrams: 06/17/19 05:41 06/17/19 12:12 Labs: 06/15/19 10:02 Blood Blood Culture - Preliminary 06/15/19 09:40 Blood Blood Culture - Preliminary Laboratory WBC 8.6 X10^3/uL (3.6-10.0) 06/17/19 05:41 RBC 3.93 X10^6/uL (4.7-6.0) L 06/17/19 05:41 Hgb 12.1 g/dL (13.5-18.0) L 06/17/19 05:41 Hct 35.4 % (42.0-54.0) L 06/17/19 05:41 MCV 90.0 fL (80.0-100.0) 06/17/19 05:41 MCH 30.7 pg (27.0-34.0) 06/17/19 05:41 MCHC 34.1 g/dL (33.0-35.0) 06/17/19 05:41 RDW 13.9 % (11.6-16.5) 06/17/19 05:41 Plt Count 131 X10^3/uL (150.0-450.0) L 06/17/19 05:41 MPV 9.0 fL (7.4-11.0) 06/17/19 05:41 Neut % (Auto) 81.2 % (42.0-75.0) H 06/17/19 05:41 Lymph % (Auto) 15.0 % (21.0-51.0) L 06/17/19 05:41 [place] % (Auto) 3.4 % (0.0-13.0) 06/17/19 05:41 Eos % (Auto) 0.1 % (0.9-2.9) L 06/17/19 05:41 Baso % (Auto) 0.3 % (0.2-1.0) 06/17/19 05:41 Neut # (Auto) 6.9 x10^3/uL (2.2-4.8) H 06/17/19 05:41 Lymph # (Auto) 1.3 X10^3/uL (1.3-2.9) 06/17/19 05:41 [place] # (Auto) 0.3 x10^3/uL (0.3-0.8) 06/17/19 05:41 Eos # (Auto) 0.0 x10^3/uL (0.0-0.2) 06/17/19 05:41 Baso # (Auto) 0.0 X10^3/uL (0.0-0.1) 06/17/19 05:41 Absolute Nucleated RBC 0.0 /100WBC 06/17/19 05:41 ESR 57 MM/HOUR (0-15) H 06/17/19 05:41 Sodium 138 mmol/L (136-145) 06/17/19 05:41 Corrected Sodium TNP 06/17/19 05:41 Potassium 4.5 mmol/L (3.5-5.1) 06/17/19 12:12 Chloride 101 mmol/L (98-107) 06/17/19 05:41 Carbon Dioxide 30.1 mmol/L (21-32) 06/17/19 05:41 BUN 23 mg/dL (7-18) H 06/17/19 05:41 Creatinine 1.08 mg/dL (0.70-1.30) 06/17/19 05:41 Est GFR (MDRD) Af Amer > 60 (>60) 06/17/19 05:41 Est GFR (MDRD) Non-Af > 60 (>60) 06/17/19 05:41 Glucose 102 mg/dL (65-99) H 06/17/19 05:41 POC Glucose (mg/dL) 159 mg/dL (65-99) H 06/17/19 15:53 Lactic Acid 1.3 mmol/L (0.4-2.0) 06/15/19 16:13 Calcium 9.4 mg/dL (8.5-10.1) 06/17/19 05:41 Corrected Calcium 10.4 mg/dL (8.5-10.1) H 06/17/19 05:41 Magnesium 2.3 mg/dL (1.7-2.9) 06/17/19 05:41 Total Bilirubin 0.30 mg/dL (0.2-1.0) 06/17/19 05:41 AST 18 Units/L (15-37) 06/17/19 05:41 ALT 23 Units/L (12-78) 06/17/19 05:41 Alkaline Phosphatase 45 Units/L (46-116) L 06/17/19 05:41 Lactate Dehydrogenase 167 Units/L (85-227) 06/15/19 10:02 Creatine Kinase 75 Units/L (39-308) 06/15/19 10:02 CK-MB (CK-2) 1.0 ng/mL (0-4.0) 06/15/19 10:02 CK/CKMB % Calc 1.3 % (<4) 06/15/19 10:02 Troponin I < 0.02 ng/mL (0-1.5) 06/15/19 10:02 C-Reactive Protein 74.70 mg/L (0-3.0) H 06/17/19 05:41 B-Natriuretic Peptide 90.5 pg/mL (0-79) H 06/15/19 10:02 Total Protein 7.1 g/dL (6.4-8.2) 06/17/19 05:41 Albumin 2.8 g/dL (3.4-5.0) L 06/17/19 05:41 Globulin 4.3 g/dL (2.5-4.5) 06/17/19 05:41 Albumin/Globulin Ratio 0.7 Ratio (1.1-2.1) L 06/17/19 05:41 - Plan (1) COPD with acute bronchitis Status: Acute Plan: AZITHROMYCIN 500MG IV DAILY, PREDNISONE 40MG PO DAILY, PULMICORT AND XOPENEX NEB [place], SUPPLEMENTAL OXYGEN, (2) Acute CHF Status: Acute Qualifiers: Heart failure type: unspecified Qualified Code(s): I50.9 - Heart failure, unspecified Plan: LASIX 40MG IV DAILY, CONTINUE TO MONITOR (3) Generalized weakness Status: Acute (4) Hypertension Status: Chronic Qualifiers: Hypertension type: essential hypertension Plan: CONTINUE HOME MEDS (5) Dementia Status: Chronic Qualifiers: Dementia type: vascular dementia Dementia behavioral disturbance: with behavioral disturbance Qualified Code(s): F01.51 - Vascular dementia with behavioral disturbance Plan: CONTINUE HOME MEDS (6) Depression Status: Chronic Qualifiers: Depression Type: unspecified Qualified Code(s): F32.9 - Major depressive disorder, single episode, unspecified Plan: CONTINUE HOME MEDS (7) History of CVA (cerebrovascular accident) Status: Chronic Plan: CONTINUE HOME MEDS (8) GERD (gastroesophageal reflux disease) Status: Chronic Qualifiers: Esophagitis presence: esophagitis presence not specified Plan: CONTINUE HOME MEDS
--- NOTE | 2019-06-17 16:43 | PCM.PROG ---
Progress Note - Progress Note for Day of Date of Exam: 06/17/19 - Subjective Subjective: IS BEING TREATED FOR CHF EXACERBATIONS AND COPD WITH ACUTE BRONCHITIS. TODAY, HE IS ALERT, LYING IN BED ON MORNING ROUNDS. HE CONTINUES WITH COUGH AND WHEEZING TODAY. ON EXAMINATION, HEART IS REGULAR IN RATE AND RHYTHM. BILATERAL LUNGS ARE NOTED WITH SCATTERED WHEEZING THROUGHOUT. ABDOMEN IS ROUND, SOFT, AND NON-TENDER WITH NORMAL BOWEL SOUNDS NOTED IN ALL QUADRNATS. HIS VITALS THIS MORNING ARE: 99.6-86-19-98%-109/57. LABS WERE OBTAINED. ABNORMAL LAB VALUES INCLUDE THE FOLLOWING: RBC 3.93, HGB 12.1, HCT 35.4, PLT COUNT 131, POTASSIUM 3.3, BUN 23, GLUCOSE 102, ALK PHOS 45, CRP 74.70, ALBUMIN 2.8. COVID 19 PENDING. BLOOD CULTURES ARE PENDING. A CHEST XRAY WAS OBTAINED THIS MORNING AND REVEALED: Interval development of a right basilar infiltrate since the prior examination. HE IS CURRENTLY RECEIVING AZITHROMYCIN 500MG IV DAILY, PREDNISONE 40MG PO DAILY, PULMICORT AND XOPENEX NEB [place], SUPPLEMENTAL OXYGEN, AND HOME MEDICATIONS WERE RESUMED. WE WILL CONTINUE WITH CURRENT PLAN OF CARE TODAY. OTHERWISE, WE PLAN TO FOLLOW UP WITH AM LABS AND CHEST XRAY AND CONTINUE TO MONITOR. - Past Medical Family Social History Past Med/Fam/Surg Hx: No changes since H&P Allergies: Allergies No Known Drug Allergies Allergy (Verified 05/17/19 09:20) - Review of Systems ROS: No change since H&P - Vital Signs and I&O's Vital Signs: Temperature 97.9 F Pulse Rate [Apical] 81 Pulse Rate 96 Respiratory Rate 22 Blood Pressure [Left Arm] 91/50 Blood Pressure 95/55 O2 Sat by Pulse Oximetry 94 Intake and Output: Intake & Output 06/15/19 06/16/19 06/17/19 06/18/19 11:59 11:59 11:59 11:59 Intake Total 0 / 0 1506 / 1506 1064 / 1064 Balance 0 / 0 1506 / 1506 1064 / 1064 - Physical Exam Oriented: Unable to test Eyes: Normal Ear: Normal Nose: Normal Throat: Normal Respiratory: Generalized, Wheezes Cardiovascular: Tachycardia. negative: S3, S4, Murmur : Normal Auscultation: Bowel Sounds: Normal Tenderness: Normal Skin: Normal Musculoskeletal: Motor Deficit Psychiatric: Normal Mood Description: Calm Affect: Normal Speech Pattern: Aphasic - Laboratory and Diagnostics Result Diagrams: 06/17/19 05:41 06/17/19 12:12 Labs: 06/15/19 10:02 Blood Blood Culture - Preliminary 06/15/19 09:40 Blood Blood Culture - Preliminary Laboratory WBC 8.6 X10^3/uL (3.6-10.0) 06/17/19 05:41 RBC 3.93 X10^6/uL (4.7-6.0) L 06/17/19 05:41 Hgb 12.1 g/dL (13.5-18.0) L 06/17/19 05:41 Hct 35.4 % (42.0-54.0) L 06/17/19 05:41 MCV 90.0 fL (80.0-100.0) 06/17/19 05:41 MCH 30.7 pg (27.0-34.0) 06/17/19 05:41 MCHC 34.1 g/dL (33.0-35.0) 06/17/19 05:41 RDW 13.9 % (11.6-16.5) 06/17/19 05:41 Plt Count 131 X10^3/uL (150.0-450.0) L 06/17/19 05:41 MPV 9.0 fL (7.4-11.0) 06/17/19 05:41 Neut % (Auto) 81.2 % (42.0-75.0) H 06/17/19 05:41 Lymph % (Auto) 15.0 % (21.0-51.0) L 06/17/19 05:41 [place] % (Auto) 3.4 % (0.0-13.0) 06/17/19 05:41 Eos % (Auto) 0.1 % (0.9-2.9) L 06/17/19 05:41 Baso % (Auto) 0.3 % (0.2-1.0) 06/17/19 05:41 Neut # (Auto) 6.9 x10^3/uL (2.2-4.8) H 06/17/19 05:41 Lymph # (Auto) 1.3 X10^3/uL (1.3-2.9) 06/17/19 05:41 [place] # (Auto) 0.3 x10^3/uL (0.3-0.8) 06/17/19 05:41 Eos # (Auto) 0.0 x10^3/uL (0.0-0.2) 06/17/19 05:41 Baso # (Auto) 0.0 X10^3/uL (0.0-0.1) 06/17/19 05:41 Absolute Nucleated RBC 0.0 /100WBC 06/17/19 05:41 ESR 57 MM/HOUR (0-15) H 06/17/19 05:41 Sodium 138 mmol/L (136-145) 06/17/19 05:41 Corrected Sodium TNP 06/17/19 05:41 Potassium 4.5 mmol/L (3.5-5.1) 06/17/19 12:12 Chloride 101 mmol/L (98-107) 06/17/19 05:41 Carbon Dioxide 30.1 mmol/L (21-32) 06/17/19 05:41 BUN 23 mg/dL (7-18) H 06/17/19 05:41 Creatinine 1.08 mg/dL (0.70-1.30) 06/17/19 05:41 Est GFR (MDRD) Af Amer > 60 (>60) 06/17/19 05:41 Est GFR (MDRD) Non-Af > 60 (>60) 06/17/19 05:41 Glucose 102 mg/dL (65-99) H 06/17/19 05:41 POC Glucose (mg/dL) 159 mg/dL (65-99) H 06/17/19 15:53 Lactic Acid 1.3 mmol/L (0.4-2.0) 06/15/19 16:13 Calcium 9.4 mg/dL (8.5-10.1) 06/17/19 05:41 Corrected Calcium 10.4 mg/dL (8.5-10.1) H 06/17/19 05:41 Magnesium 2.3 mg/dL (1.7-2.9) 06/17/19 05:41 Total Bilirubin 0.30 mg/dL (0.2-1.0) 06/17/19 05:41 AST 18 Units/L (15-37) 06/17/19 05:41 ALT 23 Units/L (12-78) 06/17/19 05:41 Alkaline Phosphatase 45 Units/L (46-116) L 06/17/19 05:41 Lactate Dehydrogenase 167 Units/L (85-227) 06/15/19 10:02 Creatine Kinase 75 Units/L (39-308) 06/15/19 10:02 CK-MB (CK-2) 1.0 ng/mL (0-4.0) 06/15/19 10:02 CK/CKMB % Calc 1.3 % (<4) 06/15/19 10:02 Troponin I < 0.02 ng/mL (0-1.5) 06/15/19 10:02 C-Reactive Protein 74.70 mg/L (0-3.0) H 06/17/19 05:41 B-Natriuretic Peptide 90.5 pg/mL (0-79) H 06/15/19 10:02 Total Protein 7.1 g/dL (6.4-8.2) 06/17/19 05:41 Albumin 2.8 g/dL (3.4-5.0) L 06/17/19 05:41 Globulin 4.3 g/dL (2.5-4.5) 06/17/19 05:41 Albumin/Globulin Ratio 0.7 Ratio (1.1-2.1) L 06/17/19 05:41 - Plan (1) COPD with acute bronchitis Status: Acute Plan: AZITHROMYCIN 500MG IV DAILY, PREDNISONE 40MG PO DAILY, PULMICORT AND XOPENEX NEB [place], SUPPLEMENTAL OXYGEN, (2) Acute CHF Status: Acute Qualifiers: Heart failure type: unspecified Qualified Code(s): I50.9 - Heart failure, unspecified Plan: LASIX 40MG IV DAILY, CONTINUE TO MONITOR (3) Generalized weakness Status: Acute (4) Hypertension Status: Chronic Qualifiers: Hypertension type: essential hypertension Plan: CONTINUE HOME MEDS (5) Dementia Status: Chronic Qualifiers: Dementia type: vascular dementia Dementia behavioral disturbance: with behavioral disturbance Qualified Code(s): F01.51 - Vascular dementia with behavioral disturbance Plan: CONTINUE HOME MEDS (6) Depression Status: Chronic Qualifiers: Depression Type: unspecified Qualified Code(s): F32.9 - Major depressive disorder, single episode, unspecified Plan: CONTINUE HOME MEDS (7) History of CVA (cerebrovascular accident) Status: Chronic Plan: CONTINUE HOME MEDS (8) GERD (gastroesophageal reflux disease) Status: Chronic Qualifiers: Esophagitis presence: esophagitis presence not specified Plan: CONTINUE HOME MEDS
[2019-06-17] MEDS: ARICEPT TAB 10 MG GT SCH (21:00)
[2019-06-18] MEDS: XOPENEX 1.25 MG/3 ML NEBULE NEB SCH ×4 (00:15→17:50)
[2019-06-18] MEDS: ASTELIN NASAL SPRAY ENOSTRIL SCH ×3 (05:00→21:00)
[2019-06-18] MEDS: FORTAZ or TAZICEF VIAL INJ 1 G in NS 100 ML IV + SPIKE MINIBAG* 100 ML IV SCH ×3 (05:00→21:00)
[2019-06-18] MEDS: PATIENT'S HOME MEDICATION PO SCH ×4 (05:05→21:00)
--- NOTE | 2019-06-18 05:50 | RAD ---
STUDY: CHEST, 1 VIEWCOMPARISON: June 17, 2019HISTORY: SOBFINDINGS:Cardiomediastinal contour is stable. Pleural parenchymal lung markings are unchanged from the prior study. Subtle airspace disease described in the right lower lung zone is unchanged from the prior study. There is persistent left lower lung zone airspace disease which may represent atelectasis or early developing consolidation. No pleural effusion or pneumothorax is seen.IMPRESSION:There is no significant change from prior study.Electronically signed by: Roscoe Soares (Jun 18, 2019 05:49:39)
[2019-06-18 06:48] LABS: ALANINE AMINOTRANSFERASE 19 Units/L (12-78); ALBUMIN 2.7 g/dL (3.4-5.0); ALKALINE PHOSPHATASE 41 Units/L (46-116); ASPARTATE AMINO TRANSFERASE 13 Units/L (15-37); BLOOD UREA NITROGEN 21 mg/dL (7-18); CALCIUM 9.6 mg/dL (8.5-10.1); CARBON DIOXIDE 30.9 mmol/L (21-32); CHLORIDE 104 mmol/L (98-107); COR CA(FOR HYPOALB) 10.6 mg/dL (8.5-10.1); CREATININE 0.91 mg/dL (0.70-1.30); SODIUM 142 mmol/L (136-145); TOTAL PROTEIN 6.7 g/dL (6.4-8.2); eGFR NON BLACK RACES > 60 (>60)
[2019-06-18 06:49] LABS: BASOPHILS % (AUTO) 0.1 % (0.2-1.0); EOSINOPHILS % (AUTO) 0.3 % (0.9-2.9); HEMATOCRIT 34.9 % (42.0-54.0); HEMOGLOBIN 11.9 g/dL (13.5-18.0); LYMPHOCYTES # (AUTO) 1.5 X10^3/uL (1.3-2.9); LYMPHOCYTES % (AUTO) 25.8 % (21.0-51.0); MEAN CORPUSCULAR HEMOGLOBIN 30.9 pg (27.0-34.0); MEAN CORPUSCULAR VOLUME 90.7 fL (80.0-100.0); MEAN PLATELET VOLUME 8.4 fL (7.4-11.0); MONOCYTES # (AUTO) 0.3 x10^3/uL (0.3-0.8); MONOCYTES % (AUTO) 5.6 % (0.0-13.0); NEUTROPHILS % (AUTO) 68.2 % (42.0-75.0); PLATELET COUNT 126 X10^3/uL (150.0-450.0); RED BLOOD COUNT 3.85 X10^6/uL (4.7-6.0); RED CELL DISTRIBUTION WIDTH 13.8 % (11.6-16.5); WHITE BLOOD COUNT 5.9 X10^3/uL (3.6-10.0)
[2019-06-18 07:33] LABS: ERYTHROCYTE SEDIMENTATION RATE 53 MM/HOUR (0-15)
[2019-06-18] MEDS: PREDNISONE TAB 10 MG PO SCH (08:10)
[2019-06-18] MEDS: SINGULAIR TAB 10 MG GT SCH (08:10)
[2019-06-18] MEDS: COLACE SYRUP 100 MG UDC PEG SCH (08:10)
[2019-06-18] MEDS: ARTIFICIAL TEARS DROPS EACHEYE SCH ×2 (08:10→21:39)
[2019-06-18] MEDS: NAMENDA TAB 10 MG GT SCH ×2 (08:11→20:59)
[2019-06-18] MEDS: PROSCAR PO SCH (08:12)
[2019-06-18] MEDS: EFFEXOR XR 75 MG CAP 24-HR PO SCH (08:13)
[2019-06-18] MEDS: FLOMAX PO SCH (08:13)
[2019-06-18] MEDS: FLONASE NASAL SPRAY ENOSTRIL SCH ×2 (08:13→20:55)
[2019-06-18] MEDS: ELIQUIS PO SCH ×2 (08:13→20:55)
[2019-06-18] MEDS: GEODON PO SCH ×2 (08:14→20:56)
[2019-06-18] MEDS: XANAX GT SCH ×2 (08:14→20:56)
[2019-06-18] MEDS: LOPRESSOR TAB 25 MG PO SCH ×2 (08:17→20:56)
[2019-06-18] MEDS: LASIX IVP SCH (08:18)
[2019-06-18] MEDS: PULMICORT NEB TX 0.5 MG NEB SCH ×2 (09:15→21:00)
[2019-06-18] MEDS: ARICEPT TAB 10 MG GT SCH (20:55)
--- NOTE | 2019-06-18 21:45 | PCM.PROG ---
Progress Note - Progress Note for Day of Date of Exam: 06/18/19 - Subjective Subjective: IS BEING TREATED FOR CHF EXACERBATIONS AND COPD WITH ACUTE BRONCHITIS. TODAY, HE IS ALERT, LYING IN BED ON MORNING ROUNDS. HE CONTINUES WITH COUGH AND WHEEZING TODAY. ON EXAMINATION, HEART IS REGULAR IN RATE AND RHYTHM. BILATERAL LUNGS ARE NOTED WITH SCATTERED WHEEZING THROUGHOUT. ABDOMEN IS ROUND, SOFT, AND NON-TENDER WITH NORMAL BOWEL SOUNDS NOTED IN ALL QUADRNATS. HIS VITALS THIS MORNING ARE: 98.3-63-22-100%-110/55. LABS WERE OBTAINED. ABNORMAL LAB VALUES INCLUDE THE FOLLOWING: RBC 3.85, HGB 11.9, HCT 34.9, PLT COUNT 126, BUN 21, GLUCOSE 105, AST 13, ALK PHOS 41, CRP 51.80, ALBUMIN 2.7. COVID 19 PENDING. BLOOD CULTURES ARE PENDING. A CHEST XRAY WAS OBTAINED THIS MORNING AND REVEALED: Cardiomediastinal contour is stable. Pleural parenchymal lung markings are unchanged from the prior study. Subtle airspace disease described in the right lower lung zone is unchanged from the prior study. There is persistent left lower lung zone airspace disease which may represent atelectasis or early developing consolidation. No pleural effusion or pneumothorax is seen. HE IS CURRENTLY RECEIVING AZITHROMYCIN 500MG IV DAILY, PREDNISONE 40MG PO DAILY, PULMICORT AND XOPENEX NEB TX, SUPPLEMENTAL OXYGEN, AND HOME MEDICATIONS WERE RESUMED. WE WILL CONTINUE WITH CURRENT PLAN OF CARE TODAY. OTHERWISE, WE PLAN TO FOLLOW UP WITH AM LABS AND CHEST XRAY AND CONTINUE TO MONITOR. - Past Medical Family Social History Past Med/Fam/Surg Hx: No changes since H&P Allergies: Allergies No Known Drug Allergies Allergy (Verified 05/17/19 09:20) - Review of Systems ROS: No change since H&P - Vital Signs and I&O's Vital Signs: Temperature 97.4 F Pulse Rate [Apical] 69 Pulse Rate 100 Respiratory Rate 17 Blood Pressure [Left Arm] 88/53 Blood Pressure 95/55 O2 Sat by Pulse Oximetry 100 Intake and Output: Intake & Output 06/16/19 06/17/19 06/18/19 06/19/19 11:59 11:59 11:59 11:59 Intake Total 0 / 0 1851 / 1851 2770 / 2770 1812 / 1812 Balance 0 / 0 1851 / 1851 2770 / 2770 1812 / 1812 - Physical Exam Oriented: Unable to test Eyes: Normal Ear: Normal Nose: Normal Throat: Normal Respiratory: Generalized, Wheezes Cardiovascular: Tachycardia. negative: S3, S4, Murmur : Normal Auscultation: Bowel Sounds: Normal Tenderness: Normal Skin: Normal Musculoskeletal: Motor Deficit Psychiatric: Normal Mood Description: Calm Affect: Normal Speech Pattern: Delayed - Laboratory and Diagnostics Result Diagrams: 06/18/19 05:39 06/18/19 05:39 Labs: 06/15/19 10:02 Blood Blood Culture - Preliminary 06/15/19 09:40 Blood Blood Culture - Preliminary Laboratory WBC 5.9 X10^3/uL (3.6-10.0) 06/18/19 05:39 RBC 3.85 X10^6/uL (4.7-6.0) L 06/18/19 05:39 Hgb 11.9 g/dL (13.5-18.0) L 06/18/19 05:39 Hct 34.9 % (42.0-54.0) L 06/18/19 05:39 MCV 90.7 fL (80.0-100.0) 06/18/19 05:39 MCH 30.9 pg (27.0-34.0) 06/18/19 05:39 MCHC 34.0 g/dL (33.0-35.0) 06/18/19 05:39 RDW 13.8 % (11.6-16.5) 06/18/19 05:39 Plt Count 126 X10^3/uL (150.0-450.0) L 06/18/19 05:39 MPV 8.4 fL (7.4-11.0) 06/18/19 05:39 Neut % (Auto) 68.2 % (42.0-75.0) 06/18/19 05:39 Lymph % (Auto) 25.8 % (21.0-51.0) 06/18/19 05:39 [place] % (Auto) 5.6 % (0.0-13.0) 06/18/19 05:39 Eos % (Auto) 0.3 % (0.9-2.9) L 06/18/19 05:39 Baso % (Auto) 0.1 % (0.2-1.0) L 06/18/19 05:39 Neut # (Auto) 4.0 x10^3/uL (2.2-4.8) 06/18/19 05:39 Lymph # (Auto) 1.5 X10^3/uL (1.3-2.9) 06/18/19 05:39 [place] # (Auto) 0.3 x10^3/uL (0.3-0.8) 06/18/19 05:39 Eos # (Auto) 0.0 x10^3/uL (0.0-0.2) 06/18/19 05:39 Baso # (Auto) 0.0 X10^3/uL (0.0-0.1) 06/18/19 05:39 Absolute Nucleated RBC 0.1 /100WBC 06/18/19 05:39 ESR 53 MM/HOUR (0-15) H 06/18/19 05:39 Sodium 142 mmol/L (136-145) 06/18/19 05:39 Corrected Sodium TNP 06/18/19 05:39 Potassium 3.9 mmol/L (3.5-5.1) 06/18/19 05:39 Chloride 104 mmol/L (98-107) 06/18/19 05:39 Carbon Dioxide 30.9 mmol/L (21-32) 06/18/19 05:39 BUN 21 mg/dL (7-18) H 06/18/19 05:39 Creatinine 0.91 mg/dL (0.70-1.30) 06/18/19 05:39 Est GFR (MDRD) Af Amer > 60 (>60) 06/18/19 05:39 Est GFR (MDRD) Non-Af > 60 (>60) 06/18/19 05:39 Glucose 105 mg/dL (65-99) H 06/18/19 05:39 POC Glucose (mg/dL) 79 mg/dL (65-99) 06/18/19 05:01 Lactic Acid 1.3 mmol/L (0.4-2.0) 06/15/19 16:13 Calcium 9.6 mg/dL (8.5-10.1) 06/18/19 05:39 Corrected Calcium 10.6 mg/dL (8.5-10.1) H 06/18/19 05:39 Magnesium 2.3 mg/dL (1.7-2.9) 06/17/19 05:41 Total Bilirubin 0.30 mg/dL (0.2-1.0) 06/18/19 05:39 AST 13 Units/L (15-37) L 06/18/19 05:39 ALT 19 Units/L (12-78) 06/18/19 05:39 Alkaline Phosphatase 41 Units/L (46-116) L 06/18/19 05:39 Lactate Dehydrogenase 167 Units/L (85-227) 06/15/19 10:02 Creatine Kinase 75 Units/L (39-308) 06/15/19 10:02 CK-MB (CK-2) 1.0 ng/mL (0-4.0) 06/15/19 10:02 CK/CKMB % Calc 1.3 % (<4) 06/15/19 10:02 Troponin I < 0.02 ng/mL (0-1.5) 06/15/19 10:02 C-Reactive Protein 51.80 mg/L (0-3.0) H 06/18/19 05:39 B-Natriuretic Peptide 90.5 pg/mL (0-79) H 06/15/19 10:02 Total Protein 6.7 g/dL (6.4-8.2) 06/18/19 05:39 Albumin 2.7 g/dL (3.4-5.0) L 06/18/19 05:39 Globulin 4.0 g/dL (2.5-4.5) 06/18/19 05:39 Albumin/Globulin Ratio 0.7 Ratio (1.1-2.1) L 06/18/19 05:39 - Plan (1) COPD with acute bronchitis Status: Acute Plan: AZITHROMYCIN 500MG IV DAILY, PREDNISONE 40MG PO DAILY, PULMICORT AND XOPENEX NEB [place], SUPPLEMENTAL OXYGEN, (2) Acute CHF Status: Acute Qualifiers: Heart failure type: unspecified Qualified Code(s): I50.9 - Heart failure, unspecified Plan: LASIX 40MG IV DAILY, CONTINUE TO MONITOR (3) Generalized weakness Status: Acute (4) Hypertension Status: Chronic Qualifiers: Hypertension type: essential hypertension Plan: CONTINUE HOME MEDS (5) Dementia Status: Chronic Qualifiers: Dementia type: vascular dementia Dementia behavioral disturbance: with behavioral disturbance Qualified Code(s): F01.51 - Vascular dementia with behavioral disturbance Plan: CONTINUE HOME MEDS (6) Depression Status: Chronic Qualifiers: Depression Type: unspecified Qualified Code(s): F32.9 - Major depressive disorder, single episode, unspecified Plan: CONTINUE HOME MEDS (7) History of CVA (cerebrovascular accident) Status: Chronic Plan: CONTINUE HOME MEDS (8) GERD (gastroesophageal reflux disease) Status: Chronic Qualifiers: Esophagitis presence: esophagitis presence not specified Plan: CONTINUE HOME MEDS
[2019-06-19] MEDS: PATIENT'S HOME MEDICATION PO SCH ×4 (05:00→21:04)
[2019-06-19] MEDS: ASTELIN NASAL SPRAY ENOSTRIL SCH ×3 (05:10→21:04)
[2019-06-19] MEDS: FORTAZ or TAZICEF VIAL INJ 1 G in NS 100 ML IV + SPIKE MINIBAG* 100 ML IV SCH ×3 (05:10→21:04)
--- NOTE | 2019-06-19 05:54 | RAD ---
STUDY: June 18, 2019COMPARISON: NoneHISTORY: SOBFINDINGS:Stable prominence of the left hilum is noted. No consolidation, pleural effusion, or pneumothorax is seen. Overall there is improved aeration of the lungs bilaterally when compared to the prior study. Cardiomediastinal contour is stable.IMPRESSION:Overall there is improved aeration of the lungs bilaterally with persistent prominence of the left hilum.Electronically signed by: Roscoe Soares (Jun 19, 2019 05:52:58)
[2019-06-19] MEDS: XOPENEX 1.25 MG/3 ML NEBULE NEB SCH ×4 (06:00→17:55)
[2019-06-19 06:39] LABS: BASOPHILS % (AUTO) 0.2 % (0.2-1.0); EOSINOPHILS # (AUTO) 0.1 x10^3/uL (0.0-0.2); EOSINOPHILS % (AUTO) 0.8 % (0.9-2.9); HEMATOCRIT 35.1 % (42.0-54.0); HEMOGLOBIN 11.9 g/dL (13.5-18.0); LYMPHOCYTES # (AUTO) 1.8 X10^3/uL (1.3-2.9); LYMPHOCYTES % (AUTO) 27.4 % (21.0-51.0); MEAN CORPUSCULAR HEMOGLOBIN 30.7 pg (27.0-34.0); MEAN CORPUSCULAR HGB CONC 34.1 g/dL (33.0-35.0); MEAN CORPUSCULAR VOLUME 90.2 fL (80.0-100.0); MEAN PLATELET VOLUME 8.2 fL (7.4-11.0); MONOCYTES # (AUTO) 0.4 x10^3/uL (0.3-0.8); NEUTROPHILS # (AUTO) 4.2 x10^3/uL (2.2-4.8); NEUTROPHILS % (AUTO) 65.6 % (42.0-75.0); PLATELET COUNT 150 X10^3/uL (150.0-450.0); RED BLOOD COUNT 3.89 X10^6/uL (4.7-6.0); RED CELL DISTRIBUTION WIDTH 13.7 % (11.6-16.5); WHITE BLOOD COUNT 6.5 X10^3/uL (3.6-10.0)
[2019-06-19 07:02] LABS: ALANINE AMINOTRANSFERASE 19 Units/L (12-78); ALBUMIN 2.6 g/dL (3.4-5.0); ALKALINE PHOSPHATASE 43 Units/L (46-116); ASPARTATE AMINO TRANSFERASE 14 Units/L (15-37); BLOOD UREA NITROGEN 19 mg/dL (7-18); CALCIUM 9.6 mg/dL (8.5-10.1); CARBON DIOXIDE 32.7 mmol/L (21-32); CHLORIDE 103 mmol/L (98-107); COR CA(FOR HYPOALB) 10.7 mg/dL (8.5-10.1); CREATININE 0.89 mg/dL (0.70-1.30); SODIUM 140 mmol/L (136-145); TOTAL PROTEIN 6.7 g/dL (6.4-8.2); eGFR NON BLACK RACES > 60 (>60)
[2019-06-19 07:17] LABS: ERYTHROCYTE SEDIMENTATION RATE 44 MM/HOUR (0-15)
[2019-06-19] MEDS: PULMICORT NEB TX 0.5 MG NEB SCH ×2 (09:05→20:40)
[2019-06-19] MEDS: ARTIFICIAL TEARS DROPS EACHEYE SCH ×2 (09:22→20:50)
[2019-06-19] MEDS: COLACE SYRUP 100 MG UDC PEG SCH (09:22)
[2019-06-19] MEDS: FLOMAX PO SCH (09:23)
[2019-06-19] MEDS: ELIQUIS PO SCH ×2 (09:23→20:10)
[2019-06-19] MEDS: EFFEXOR XR 75 MG CAP 24-HR PO SCH (09:23)
[2019-06-19] MEDS: LOPRESSOR TAB 25 MG PO SCH ×2 (09:24→20:10)
[2019-06-19] MEDS: LASIX IVP SCH (09:24)
[2019-06-19] MEDS: NAMENDA TAB 10 MG GT SCH ×2 (09:24→20:10)
[2019-06-19] MEDS: FLONASE NASAL SPRAY ENOSTRIL SCH ×2 (09:24→20:10)
[2019-06-19] MEDS: SINGULAIR TAB 10 MG GT SCH (09:25)
[2019-06-19] MEDS: PREDNISONE TAB 10 MG PO SCH (09:25)
[2019-06-19] MEDS: PROSCAR PO SCH (09:25)
[2019-06-19] MEDS: XANAX GT SCH ×2 (09:26→20:10)
[2019-06-19] MEDS: GEODON PO SCH ×2 (10:25→20:10)
[2019-06-19] MEDS: ARICEPT TAB 10 MG GT SCH (20:10)
[2019-06-20] MEDS: XOPENEX 1.25 MG/3 ML NEBULE NEB SCH ×4 (00:20→18:10)
[2019-06-20] MEDS: PATIENT'S HOME MEDICATION PO SCH ×4 (05:15→21:25)
[2019-06-20] MEDS: FORTAZ or TAZICEF VIAL INJ 1 G in NS 100 ML IV + SPIKE MINIBAG* 100 ML IV SCH ×3 (05:34→21:22)
[2019-06-20] MEDS: ASTELIN NASAL SPRAY ENOSTRIL SCH ×3 (05:35→21:36)
[2019-06-20 06:15] LABS: BASOPHILS % (AUTO) 0.2 % (0.2-1.0); EOSINOPHILS # (AUTO) 0.1 x10^3/uL (0.0-0.2); EOSINOPHILS % (AUTO) 0.8 % (0.9-2.9); HEMATOCRIT 36.2 % (42.0-54.0); HEMOGLOBIN 12.3 g/dL (13.5-18.0); LYMPHOCYTES # (AUTO) 1.8 X10^3/uL (1.3-2.9); MEAN CORPUSCULAR HEMOGLOBIN 30.8 pg (27.0-34.0); MEAN CORPUSCULAR VOLUME 90.5 fL (80.0-100.0); MONOCYTES # (AUTO) 0.5 x10^3/uL (0.3-0.8); MONOCYTES % (AUTO) 7.6 % (0.0-13.0); NEUTROPHILS # (AUTO) 4.3 x10^3/uL (2.2-4.8); NEUTROPHILS % (AUTO) 64.4 % (42.0-75.0); PLATELET COUNT 174 X10^3/uL (150.0-450.0); RED CELL DISTRIBUTION WIDTH 13.7 % (11.6-16.5); WHITE BLOOD COUNT 6.7 X10^3/uL (3.6-10.0)
--- NOTE | 2019-06-20 06:19 | RAD ---
HISTORYShortness of breathSTUDYCHEST, 1 [id number] heart is within normal limits in size. The karla are normal. The lungs are hypoinflated but free of acute infiltrates. No pleural effusions are identified. Bony thorax is unremarkable.IMPRESSIONLungs hypoinflated but clearElectronically signed by: CALLUM MARTINEZ (Jun 20, 2019 06:17:42)
[2019-06-20 06:29] LABS: ALANINE AMINOTRANSFERASE 19 Units/L (12-78); ALBUMIN 2.7 g/dL (3.4-5.0); ALKALINE PHOSPHATASE 42 Units/L (46-116); ASPARTATE AMINO TRANSFERASE 16 Units/L (15-37); BLOOD UREA NITROGEN 22 mg/dL (7-18); CALCIUM 9.6 mg/dL (8.5-10.1); CARBON DIOXIDE 33.7 mmol/L (21-32); CHLORIDE 103 mmol/L (98-107); COR CA(FOR HYPOALB) 10.6 mg/dL (8.5-10.1); COR NA(FOR HYPERGLY) 141 mmol/L (136-145); CREATININE 0.95 mg/dL (0.70-1.30); SODIUM 140 mmol/L (136-145); TOTAL PROTEIN 6.8 g/dL (6.4-8.2); eGFR NON BLACK RACES > 60 (>60)
[2019-06-20 06:54] LABS: ERYTHROCYTE SEDIMENTATION RATE 42 MM/HOUR (0-15)
[2019-06-20] MEDS: ARTIFICIAL TEARS DROPS EACHEYE SCH (08:22)
[2019-06-20] MEDS: ELIQUIS PO SCH ×2 (08:23→21:21)
[2019-06-20] MEDS: EFFEXOR XR 75 MG CAP 24-HR PO SCH (08:23)
[2019-06-20] MEDS: FLOMAX PO SCH (08:24)
[2019-06-20] MEDS: FLONASE NASAL SPRAY ENOSTRIL SCH ×2 (08:24→21:35)
[2019-06-20] MEDS: GEODON PO SCH ×2 (08:24→21:21)
[2019-06-20] MEDS: LASIX IVP SCH (08:25)
[2019-06-20] MEDS: NAMENDA TAB 10 MG GT SCH ×2 (08:27→21:21)
[2019-06-20] MEDS: LOPRESSOR TAB 25 MG PO SCH ×2 (08:27→21:22)
[2019-06-20] MEDS: XANAX GT SCH ×2 (08:29→21:21)
[2019-06-20] MEDS: PREDNISONE TAB 10 MG PO SCH (08:29)
[2019-06-20] MEDS: PROSCAR PO SCH (08:29)
[2019-06-20] MEDS: SINGULAIR TAB 10 MG GT SCH (08:29)
[2019-06-20] MEDS: COLACE SYRUP 100 MG UDC PEG SCH (08:30)
--- NOTE | 2019-06-20 08:30 | PCM.PROG ---
Progress Note - Progress Note for Day of Date of Exam: 06/19/19 - Subjective Subjective: IS BEING TREATED FOR CHF EXACERBATIONS AND COPD WITH ACUTE BRONCHITIS. TODAY, HE IS ALERT, LYING IN BED ON MORNING ROUNDS. HE CONTINUES WITH COUGH AND WHEEZING TODAY. STAFF REPORTS THAT COUGH HAS SLIGHTLY IMPROVED SINCE PREVIOUS DAY. ON EXAMINATION, HEART IS REGULAR IN RATE AND RHYTHM. BILATERAL LUNGS ARE NOTED WITH SCATTERED WHEEZING THROUGHOUT. ABDOMEN IS ROUND, SOFT, AND NON-TENDER WITH NORMAL BOWEL SOUNDS NOTED IN ALL QUADRNATS. HIS VITALS THIS MORNING ARE: 97.8-56-18-100%-103/55. LABS WERE OBTAINED. ABNORMAL LAB VALUES INCLUDE THE FOLLOWING: RBC 3.89, HGB 11.9, HCT 35.1, CARBON DIOXIDE 32.7, BUN 19, GLUCOSE 103, AST 14, ALK PHOS 43, CRP 22.10, ALBUMIN 2.6. COVID 19 PEND ING. BLOOD CULTURES ARE PENDING. A CHEST XRAY WAS OBTAINED THIS MORNING AND REVEALED: Overall there is improved aeration of the lungs bilaterally with persistent prominence of the left hilum. HE IS CURRENTLY RECEIVING AZITHROMYCIN 500MG IV DAILY, PREDNISONE 40MG PO DAILY, PULMICORT AND XOPENEX NEB TX, SUPPLEMENTAL OXYGEN, AND HOME MEDICATIONS WERE RESUMED. WE WILL CONTINUE WITH CURRENT PLAN OF CARE TODAY. OTHERWISE, WE PLAN TO FOLLOW UP WITH AM LABS AND CHEST XRAY AND CONTINUE TO MONITOR. - Past Medical Family Social History Past Med/Fam/Surg Hx: No changes since H&P Allergies: Allergies No Known Drug Allergies Allergy (Verified 05/17/19 09:20) - Review of Systems ROS: No change since H&P - Vital Signs and I&O's Vital Signs: Temperature 98.1 F Pulse Rate [Apical] 62 Pulse Rate 62 Respiratory Rate 19 Blood Pressure [Left Arm] 104/56 Blood Pressure 95/55 O2 Sat by Pulse Oximetry 100 Intake and Output: Intake & Output 06/17/19 06/18/19 06/19/19 06/20/19 11:59 11:59 11:59 11:59 Intake Total 1850 / 1850 2770 / 2770 3423 / 3423 2296 / 2296 Balance 1850 / 1850 2770 / 2770 3423 / 3423 2296 / 2296 - Physical Exam Oriented: Unable to test Eyes: Normal Ear: Normal Nose: Normal Throat: Normal Respiratory: Generalized, Wheezes Cardiovascular: Tachycardia. negative: S3, S4, Murmur : Normal Auscultation: Bowel Sounds: Normal Palpation: Normal Tenderness: Normal Skin: Normal Musculoskeletal: Motor Deficit Psychiatric: Normal Mood Description: Calm Affect: Normal Speech Pattern: Aphasic - Laboratory and Diagnostics Result Diagrams: 06/20/19 05:34 06/20/19 05:34 Labs: 06/15/19 10:02 Blood Blood Culture - Preliminary 06/15/19 09:40 Blood Blood Culture - Preliminary Laboratory WBC 6.7 X10^3/uL (3.6-10.0) 06/20/19 05:34 RBC 4.00 X10^6/uL (4.7-6.0) L 06/20/19 05:34 Hgb 12.3 g/dL (13.5-18.0) L 06/20/19 05:34 Hct 36.2 % (42.0-54.0) L 06/20/19 05:34 MCV 90.5 fL (80.0-100.0) 06/20/19 05:34 MCH 30.8 pg (27.0-34.0) 06/20/19 05:34 MCHC 34.0 g/dL (33.0-35.0) 06/20/19 05:34 RDW 13.7 % (11.6-16.5) 06/20/19 05:34 Plt Count 174 X10^3/uL (150.0-450.0) 06/20/19 05:34 MPV 8.0 fL (7.4-11.0) 06/20/19 05:34 Neut % (Auto) 64.4 % (42.0-75.0) 06/20/19 05:34 Lymph % (Auto) 27.0 % (21.0-51.0) 06/20/19 05:34 [place] % (Auto) 7.6 % (0.0-13.0) 06/20/19 05:34 Eos % (Auto) 0.8 % (0.9-2.9) L 06/20/19 05:34 Baso % (Auto) 0.2 % (0.2-1.0) 06/20/19 05:34 Neut # (Auto) 4.3 x10^3/uL (2.2-4.8) 06/20/19 05:34 Lymph # (Auto) 1.8 X10^3/uL (1.3-2.9) 06/20/19 05:34 [place] # (Auto) 0.5 x10^3/uL (0.3-0.8) 06/20/19 05:34 Eos # (Auto) 0.1 x10^3/uL (0.0-0.2) 06/20/19 05:34 Baso # (Auto) 0.0 X10^3/uL (0.0-0.1) 06/20/19 05:34 Absolute Nucleated RBC 0.0 /100WBC 06/20/19 05:34 ESR 42 MM/HOUR (0-15) H 06/20/19 05:34 Sodium 140 mmol/L (136-145) 06/20/19 05:34 Corrected Sodium 141 mmol/L (136-145) 06/20/19 05:34 Potassium 4.0 mmol/L (3.5-5.1) 06/20/19 05:34 Chloride 103 mmol/L (98-107) 06/20/19 05:34 Carbon Dioxide 33.7 mmol/L (21-32) H 06/20/19 05:34 BUN 22 mg/dL (7-18) H 06/20/19 05:34 Creatinine 0.95 mg/dL (0.70-1.30) 06/20/19 05:34 Est GFR (MDRD) Af Amer > 60 (>60) 06/20/19 05:34 Est GFR (MDRD) Non-Af > 60 (>60) 06/20/19 05:34 Glucose 125 mg/dL (65-99) H 06/20/19 05:34 POC Glucose (mg/dL) 79 mg/dL (65-99) 06/18/19 05:01 Lactic Acid 1.3 mmol/L (0.4-2.0) 06/15/19 16:13 Calcium 9.6 mg/dL (8.5-10.1) 06/20/19 05:34 Corrected Calcium 10.6 mg/dL (8.5-10.1) H 06/20/19 05:34 Magnesium 2.3 mg/dL (1.7-2.9) 06/17/19 05:41 Total Bilirubin 0.20 mg/dL (0.2-1.0) 06/20/19 05:34 AST 16 Units/L (15-37) 06/20/19 05:34 ALT 19 Units/L (12-78) 06/20/19 05:34 Alkaline Phosphatase 42 Units/L (46-116) L 06/20/19 05:34 Lactate Dehydrogenase 167 Units/L (85-227) 06/15/19 10:02 Creatine Kinase 75 Units/L (39-308) 06/15/19 10:02 CK-MB (CK-2) 1.0 ng/mL (0-4.0) 06/15/19 10:02 CK/CKMB % Calc 1.3 % (<4) 06/15/19 10:02 Troponin I < 0.02 ng/mL (0-1.5) 06/15/19 10:02 C-Reactive Protein 10.20 mg/L (0-3.0) H 06/20/19 05:34 B-Natriuretic Peptide 90.5 pg/mL (0-79) H 06/15/19 10:02 Total Protein 6.8 g/dL (6.4-8.2) 06/20/19 05:34 Albumin 2.7 g/dL (3.4-5.0) L 06/20/19 05:34 Globulin 4.1 g/dL (2.5-4.5) 06/20/19 05:34 Albumin/Globulin Ratio 0.7 Ratio (1.1-2.1) L 06/20/19 05:34 - Plan (1) COPD with acute bronchitis Status: Acute Plan: AZITHROMYCIN 500MG IV DAILY, PREDNISONE 40MG PO DAILY, PULMICORT AND XOPENEX NEB [place], SUPPLEMENTAL OXYGEN, (2) Acute CHF Status: Acute Qualifiers: Heart failure type: unspecified Qualified Code(s): I50.9 - Heart failure, unspecified Plan: LASIX 40MG IV DAILY, CONTINUE TO MONITOR (3) Generalized weakness Status: Acute (4) Hypertension Status: Chronic Qualifiers: Hypertension type: essential hypertension Plan: CONTINUE HOME MEDS (5) Dementia Status: Chronic Qualifiers: Dementia type: vascular dementia Dementia behavioral disturbance: with behavioral disturbance Qualified Code(s): F01.51 - Vascular dementia with behavioral disturbance Plan: CONTINUE HOME MEDS (6) Depression Status: Chronic Qualifiers: Depression Type: unspecified Qualified Code(s): F32.9 - Major depressive disorder, single episode, unspecified Plan: CONTINUE HOME MEDS (7) History of CVA (cerebrovascular accident) Status: Chronic Plan: CONTINUE HOME MEDS (8) GERD (gastroesophageal reflux disease) Status: Chronic Qualifiers: Esophagitis presence: esophagitis presence not specified Plan: CONTINUE HOME MEDS
[2019-06-20] MEDS: PULMICORT NEB TX 0.5 MG NEB SCH ×2 (09:10→20:50)
--- NOTE | 2019-06-20 12:17 | PCM.PROG ---
Progress Note - Progress Note for Day of Date of Exam: 06/20/19 - Subjective Subjective: IS BEING TREATED FOR CHF EXACERBATIONS AND COPD WITH ACUTE BRONCHITIS. TODAY, HE IS ALERT, LYING IN BED ON MORNING ROUNDS. HE CONTINUES WIHT A NON-PRODUCTIVE COUGH AND APPEARS TO BE SHORT OF BREATH. ON EXAMINATION, HEART IS REGULAR IN RATE AND RHYTHM. BILATERAL LUNGS ARE NOTED WITH SCATTERED WHEEZING THROUGHOUT. ABDOMEN IS ROUND, SOFT, AND NON-TENDER WITH NORMAL BOWEL SOUNDS NOTED IN ALL QUADRNATS. HIS VITALS THIS MORNING ARE: 98.2-62-19-100%-104/56. LABS WERE OBTAINED. ABNORMAL LAB VALUES INCLUDE THE FOLLOWING: RBC 4.00, HGB 12.3, HCT 26, CARBON DIOXIDE 33.7, BUN 22, GLUCOSE 125, ALK PHOS 42, CRP 10.20, ALBUMIN 2.7. HE WAS NEGATIVE FOR COVID-19. BLOOD CULTURES ARE NEGATIVE. A CHEST XRAY WAS OBTAINED THIS MORNING AND REVEALED: LUNGS HYPOINFLATED BUT CLEAR. HE IS CURRENTLY RECEIVING AZITHROMYCIN 500MG IV DAILY, PREDNISONE 40MG PO DAILY, PULMICORT AND XOPENEX NEB TX, SUPPLEMENTAL OXYGEN, AND HOME MEDICATIONS WERE RESUMED. WE WILL CONTINUE WITH CURRENT PLAN OF CARE TODAY. OTHERWISE, WE PLAN TO FOLLOW UP WITH AM LABS AND CHEST XRAY AND CONTINUE TO MONITOR. - Past Medical Family Social History Past Med/Fam/Surg Hx: No changes since H&P Allergies: Allergies No Known Drug Allergies Allergy (Verified 05/17/19 09:20) - Review of Systems ROS: No change since H&P - Vital Signs and I&O's Vital Signs: Temperature 98.1 F Pulse Rate [Apical] 62 Pulse Rate 65 Respiratory Rate 19 Blood Pressure [Left Arm] 104/56 Blood Pressure 95/55 O2 Sat by Pulse Oximetry 100 Intake and Output: Intake & Output 06/18/19 06/19/19 06/20/19 06/21/19 11:59 11:59 11:59 11:59 Intake Total 2770 / 2770 3423 / 3423 2296 / 2296 Balance 2770 / 2770 3423 / 3423 2296 / 2296 - Physical Exam Oriented: Unable to test Eyes: Normal Ear: Normal Nose: Normal Throat: Normal Respiratory: Generalized, Wheezes Cardiovascular: Tachycardia. negative: S3, S4, Murmur : Normal Auscultation: Bowel Sounds: Normal Tenderness: Normal Skin: Normal Musculoskeletal: Motor Deficit Psychiatric: Normal Mood Description: Calm Affect: Normal Speech Pattern: Aphasic - Laboratory and Diagnostics Result Diagrams: 06/20/19 05:34 06/20/19 05:34 Labs: 06/15/19 10:02 Blood Blood Culture - Final 06/15/19 09:40 Blood Blood Culture - Final Laboratory WBC 6.7 X10^3/uL (3.6-10.0) 06/20/19 05:34 RBC 4.00 X10^6/uL (4.7-6.0) L 06/20/19 05:34 Hgb 12.3 g/dL (13.5-18.0) L 06/20/19 05:34 Hct 36.2 % (42.0-54.0) L 06/20/19 05:34 MCV 90.5 fL (80.0-100.0) 06/20/19 05:34 MCH 30.8 pg (27.0-34.0) 06/20/19 05:34 MCHC 34.0 g/dL (33.0-35.0) 06/20/19 05:34 RDW 13.7 % (11.6-16.5) 06/20/19 05:34 Plt Count 174 X10^3/uL (150.0-450.0) 06/20/19 05:34 MPV 8.0 fL (7.4-11.0) 06/20/19 05:34 Neut % (Auto) 64.4 % (42.0-75.0) 06/20/19 05:34 Lymph % (Auto) 27.0 % (21.0-51.0) 06/20/19 05:34 [place] % (Auto) 7.6 % (0.0-13.0) 06/20/19 05:34 Eos % (Auto) 0.8 % (0.9-2.9) L 06/20/19 05:34 Baso % (Auto) 0.2 % (0.2-1.0) 06/20/19 05:34 Neut # (Auto) 4.3 x10^3/uL (2.2-4.8) 06/20/19 05:34 Lymph # (Auto) 1.8 X10^3/uL (1.3-2.9) 06/20/19 05:34 [place] # (Auto) 0.5 x10^3/uL (0.3-0.8) 06/20/19 05:34 Eos # (Auto) 0.1 x10^3/uL (0.0-0.2) 06/20/19 05:34 Baso # (Auto) 0.0 X10^3/uL (0.0-0.1) 06/20/19 05:34 Absolute Nucleated RBC 0.0 /100WBC 06/20/19 05:34 ESR 42 MM/HOUR (0-15) H 06/20/19 05:34 Sodium 140 mmol/L (136-145) 06/20/19 05:34 Corrected Sodium 141 mmol/L (136-145) 06/20/19 05:34 Potassium 4.0 mmol/L (3.5-5.1) 06/20/19 05:34 Chloride 103 mmol/L (98-107) 06/20/19 05:34 Carbon Dioxide 33.7 mmol/L (21-32) H 06/20/19 05:34 BUN 22 mg/dL (7-18) H 06/20/19 05:34 Creatinine 0.95 mg/dL (0.70-1.30) 06/20/19 05:34 Est GFR (MDRD) Af Amer > 60 (>60) 06/20/19 05:34 Est GFR (MDRD) Non-Af > 60 (>60) 06/20/19 05:34 Glucose 125 mg/dL (65-99) H 06/20/19 05:34 POC Glucose (mg/dL) 79 mg/dL (65-99) 06/18/19 05:01 Lactic Acid 1.3 mmol/L (0.4-2.0) 06/15/19 16:13 Calcium 9.6 mg/dL (8.5-10.1) 06/20/19 05:34 Corrected Calcium 10.6 mg/dL (8.5-10.1) H 06/20/19 05:34 Magnesium 2.3 mg/dL (1.7-2.9) 06/17/19 05:41 Total Bilirubin 0.20 mg/dL (0.2-1.0) 06/20/19 05:34 AST 16 Units/L (15-37) 06/20/19 05:34 ALT 19 Units/L (12-78) 06/20/19 05:34 Alkaline Phosphatase 42 Units/L (46-116) L 06/20/19 05:34 Lactate Dehydrogenase 167 Units/L (85-227) 06/15/19 10:02 Creatine Kinase 75 Units/L (39-308) 06/15/19 10:02 CK-MB (CK-2) 1.0 ng/mL (0-4.0) 06/15/19 10:02 CK/CKMB % Calc 1.3 % (<4) 06/15/19 10:02 Troponin I < 0.02 ng/mL (0-1.5) 06/15/19 10:02 C-Reactive Protein 10.20 mg/L (0-3.0) H 06/20/19 05:34 B-Natriuretic Peptide 90.5 pg/mL (0-79) H 06/15/19 10:02 Total Protein 6.8 g/dL (6.4-8.2) 06/20/19 05:34 Albumin 2.7 g/dL (3.4-5.0) L 06/20/19 05:34 Globulin 4.1 g/dL (2.5-4.5) 06/20/19 05:34 Albumin/Globulin Ratio 0.7 Ratio (1.1-2.1) L 06/20/19 05:34 Miscellaneous Test Covid 19 06/15/19 10:20 - Plan (1) COPD with acute bronchitis Status: Acute Plan: AZITHROMYCIN 500MG IV DAILY, PREDNISONE 40MG PO DAILY, PULMICORT AND XOPENEX NEB TX, SUPPLEMENTAL OXYGEN, (2) Acute CHF Status: Acute Qualifiers: Heart failure type: unspecified Qualified Code(s): I50.9 - Heart failure, unspecified Plan: LASIX 40MG IV DAILY, CONTINUE TO MONITOR (3) Generalized weakness Status: Acute (4) Hypertension Status: Chronic Qualifiers: Hypertension type: essential hypertension Plan: CONTINUE HOME MEDS (5) Dementia Status: Chronic Qualifiers: Dementia type: vascular dementia Dementia behavioral disturbance: with behavioral disturbance Qualified Code(s): F01.51 - Vascular dementia with behavioral disturbance Plan: CONTINUE HOME MEDS (6) Depression Status: Chronic Qualifiers: Depression Type: unspecified Qualified Code(s): F32.9 - Major depressive disorder, single episode, unspecified Plan: CONTINUE HOME MEDS (7) History of CVA (cerebrovascular accident) Status: Chronic Plan: CONTINUE HOME MEDS (8) GERD (gastroesophageal reflux disease) Status: Chronic Qualifiers: Esophagitis presence: esophagitis presence not specified Plan: CONTINUE HOME MEDS
[2019-06-20] MEDS: ARICEPT TAB 10 MG GT SCH (21:21)
[2019-06-21] MEDS: XOPENEX 1.25 MG/3 ML NEBULE NEB SCH ×2 (00:13→06:11)
[2019-06-21] MEDS: ARTIFICIAL TEARS DROPS EACHEYE SCH ×2 (03:32→09:29)
[2019-06-21] MEDS: FORTAZ or TAZICEF VIAL INJ 1 G in NS 100 ML IV + SPIKE MINIBAG* 100 ML IV SCH (05:07)
[2019-06-21] MEDS: PATIENT'S HOME MEDICATION PO SCH ×2 (05:08→09:29)
[2019-06-21] MEDS: ASTELIN NASAL SPRAY ENOSTRIL SCH (05:09)
[2019-06-21 06:01] LABS: BASOPHILS % (AUTO) 0.2 % (0.2-1.0); EOSINOPHILS % (AUTO) 0.6 % (0.9-2.9); HEMATOCRIT 37.2 % (42.0-54.0); HEMOGLOBIN 12.7 g/dL (13.5-18.0); LYMPHOCYTES # (AUTO) 1.7 X10^3/uL (1.3-2.9); LYMPHOCYTES % (AUTO) 23.7 % (21.0-51.0); MEAN CORPUSCULAR HEMOGLOBIN 30.5 pg (27.0-34.0); MEAN CORPUSCULAR VOLUME 89.6 fL (80.0-100.0); MEAN PLATELET VOLUME 7.5 fL (7.4-11.0); MONOCYTES # (AUTO) 0.9 x10^3/uL (0.3-0.8); MONOCYTES % (AUTO) 12.3 % (0.0-13.0); NEUTROPHILS # (AUTO) 4.5 x10^3/uL (2.2-4.8); NEUTROPHILS % (AUTO) 63.2 % (42.0-75.0); PLATELET COUNT 207 X10^3/uL (150.0-450.0); RED BLOOD COUNT 4.15 X10^6/uL (4.7-6.0); RED CELL DISTRIBUTION WIDTH 13.8 % (11.6-16.5); WHITE BLOOD COUNT 7.1 X10^3/uL (3.6-10.0)
[2019-06-21 06:24] LABS: ALANINE AMINOTRANSFERASE 23 Units/L (12-78); ALBUMIN 2.8 g/dL (3.4-5.0); ALKALINE PHOSPHATASE 45 Units/L (46-116); ASPARTATE AMINO TRANSFERASE 14 Units/L (15-37); BLOOD UREA NITROGEN 25 mg/dL (7-18); CALCIUM 9.7 mg/dL (8.5-10.1); CARBON DIOXIDE 33.5 mmol/L (21-32); CHLORIDE 103 mmol/L (98-107); COR CA(FOR HYPOALB) 10.7 mg/dL (8.5-10.1); CREATININE 1.01 mg/dL (0.70-1.30); SODIUM 141 mmol/L (136-145); TOTAL PROTEIN 6.9 g/dL (6.4-8.2); eGFR NON BLACK RACES > 60 (>60)
[2019-06-21 06:52] LABS: ERYTHROCYTE SEDIMENTATION RATE 80 MM/HOUR (0-15)
[2019-06-21] MEDS: PULMICORT NEB TX 0.5 MG NEB SCH (08:00)
[2019-06-21] MEDS: COLACE SYRUP 100 MG UDC PEG SCH (08:11)
[2019-06-21] MEDS: SINGULAIR TAB 10 MG GT SCH (08:12)
[2019-06-21] MEDS: FLOMAX PO SCH (08:12)
[2019-06-21] MEDS: EFFEXOR XR 75 MG CAP 24-HR PO SCH (08:12)
[2019-06-21] MEDS: ELIQUIS PO SCH (08:12)
[2019-06-21] MEDS: LOPRESSOR TAB 25 MG PO SCH (08:13)
[2019-06-21] MEDS: GEODON PO SCH (08:13)
[2019-06-21] MEDS: NAMENDA TAB 10 MG GT SCH (08:13)
[2019-06-21] MEDS: PROSCAR PO SCH (08:14)
[2019-06-21] MEDS: XANAX GT SCH (08:14)
[2019-06-21] MEDS: LASIX IVP SCH (08:15)
[2019-06-21] MEDS: FLONASE NASAL SPRAY ENOSTRIL SCH (08:15)
[2019-06-21] MEDS ORDERED: PREDNISONE TAB 20 MG PO SCH (09:00)
[2019-06-21 12:13] VITALS: BP 100/52
== END 2019-06-21 12:15 | DRG 191 ==
LOC: MED/SURG 09:29 → ER 09:29 → OBS 12:00 → ICU 12:02 → MED/SURG 06-20 18:28
PROVIDERS: ADMIT Family Medicine; ATTEND Internal Medicine
DX: E78.2 Mixed hyperlipidemia; R26.89 Other abnormalities of gait and mobility; J44.0 Chronic obstructive pulmonary disease with (acute) lower respiratory infection; F41.8 Other specified anxiety disorders; I50.9 Heart failure, unspecified; R94.31 Abnormal electrocardiogram [ECG] [EKG]; E11.65 Type 2 diabetes mellitus with hyperglycemia; Z11.59 Encounter for screening for other viral diseases; R53.1 Weakness; K21.9 Gastro-esophageal reflux disease without esophagitis; F01.51 Vascular dementia, unspecified severity, with behavioral disturbance; I11.0 Hypertensive heart disease with heart failure; J20.9 Acute bronchitis, unspecified; J44.1 Chronic obstructive pulmonary disease with (acute) exacerbation; I69.320 Aphasia following cerebral infarction

== ENCOUNTER 2020-01-14 14:10 | Inpatient (IN) ==
[2020-01-14] MEDS ORDERED: TUSSIONEX PENNKINETIC SUSP PO PRN (14:44)
[2020-01-14] MEDS ORDERED: DUONEB 0.5 MG/3 MG (3 mL) NEB ONE (16:30)
[2020-01-14] MEDS: DUONEB 0.5 MG/3 MG (3 mL) NEB SCH ×2 (16:55→20:18)
[2020-01-14] MEDS: FORTAZ or TAZICEF VIAL INJ 1 G in NS 100 ML IV + SPIKE MINIBAG* 100 ML IV SCH ×2 (17:15→22:22)
[2020-01-14] MEDS ORDERED: LEVAQUIN PREMIX IV 500 MG 500 MG/100 ML BAG IV ONE (17:32)
[2020-01-14] MEDS ORDERED: NS 1/2 1000 ML IV 1,000 ML IV ONE (17:33)
[2020-01-14] MEDS: ROBITUSSIN DM PO SCH ×3 (17:50→22:22)
[2020-01-14] MEDS: NS 1/2 1000 ML IV 1,000 ML IV SCH (17:50)
[2020-01-14] MEDS: VSL#3 PO SCH (17:50)
[2020-01-14] MEDS ORDERED: PHARMACY CONSULT LTC MEDICATIONS XX SCH (18:00)
[2020-01-14] MEDS: LEVAQUIN PREMIX IV 750 MG 750 MG/150 ML BAG IV SCH (18:00)
[2020-01-14] MEDS: PULMICORT NEB TX 0.5 MG NEB SCH (20:18)
[2020-01-15] MEDS: DUONEB 0.5 MG/3 MG (3 mL) NEB SCH ×6 (01:15→20:37)
[2020-01-15] MEDS: NS 1/2 1000 ML IV 1,000 ML IV SCH ×3 (05:10→19:56)
[2020-01-15] MEDS: FORTAZ or TAZICEF VIAL INJ 1 G in NS 100 ML IV + SPIKE MINIBAG* 100 ML IV SCH ×3 (05:10→21:06)
--- NOTE | 2020-01-15 06:26 | RAD ---
HISTORYShortness of breathSTUDYChest AP [id number] is rotated to the left. The heart is within normal limits in size. The karla are normal. The lungs are free of acute infiltrates. There is subsegmental atelect asis in the left lung base. No pleural effusions are identified. Bony thorax is unremarkable.IMPRESSI ONNo definite remaining infiltratesSubsegmental atelectasis left lung baseElectronically signed by: Tamara MARTINEZ (Jan 15, 2020 06:24:20)
[2020-01-15 06:42] LABS: BASOPHILS % (AUTO) 0.1 % (0.2-1.0); HEMATOCRIT 35.4 % (42.0-54.0); LYMPHOCYTES # (AUTO) 1.2 X10^3/uL (1.3-2.9); LYMPHOCYTES % (AUTO) 12.7 % (21.0-51.0); MEAN CORPUSCULAR HEMOGLOBIN 31.4 pg (27.0-34.0); MEAN CORPUSCULAR HGB CONC 34.9 g/dL (33.0-35.0); MEAN PLATELET VOLUME 9.8 fL (7.4-11.0); MONOCYTES # (AUTO) 0.7 x10^3/uL (0.3-0.8); MONOCYTES % (AUTO) 7.9 % (0.0-13.0); NEUTROPHILS # (AUTO) 7.3 x10^3/uL (2.2-4.8); NEUTROPHILS % (AUTO) 79.3 % (42.0-75.0); PLATELET COUNT 126 X10^3/uL (150.0-450.0); RED BLOOD COUNT 3.93 X10^6/uL (4.7-6.0); RED CELL DISTRIBUTION WIDTH 13.2 % (11.6-16.5); WHITE BLOOD COUNT 9.3 X10^3/uL (3.6-10.0)
[2020-01-15 07:03] LABS: HEMOGLOBIN 12.4 g/dL (13.5-18.0)
[2020-01-15 07:07] LABS: ALANINE AMINOTRANSFERASE 19 Units/L (12-78); ALBUMIN 2.8 g/dL (3.4-5.0); ALKALINE PHOSPHATASE 64 Units/L (46-116); ASPARTATE AMINO TRANSFERASE 16 Units/L (15-37); BLOOD UREA NITROGEN 20 mg/dL (7-18); CALCIUM 8.7 mg/dL (8.5-10.1); CARBON DIOXIDE 24.1 mmol/L (21-32); CHLORIDE 102 mmol/L (98-107); COR CA(FOR HYPOALB) 9.7 mg/dL (8.5-10.1); COR NA(FOR HYPERGLY) 137 mmol/L (136-145); CREATININE 1.08 mg/dL (0.70-1.30); SODIUM 136 mmol/L (136-145); TOTAL PROTEIN 6.5 g/dL (6.4-8.2); eGFR NON BLACK RACES > 60 (>60)
[2020-01-15] MEDS ORDERED: ROBITUSSIN AC PEG PRN (08:42)
[2020-01-15] MEDS ORDERED: [UNRECOGNIZED DRUG - OTHER] feeding tube SCH (08:45)
[2020-01-15 08:53] VITALS: BMI 23.0
[2020-01-15] MEDS: PULMICORT NEB TX 0.5 MG NEB SCH ×2 (09:55→20:37)
--- NOTE | 2020-01-15 10:16 | DR.H&P ---
H&P - History & Physical for Day of: H&P Date: 01/14/20 - Chief Complaint Chief Complaint: FEVER, COUGH, CONGESTION - History of Present Illness History of Present Illness: IS A 74 YEAR OLD PATIENT OF OURS. HE IS A RESIDENT OF [facility]. HE PRESENTED TO THE HOSPITAL A DIRECT ADMISSION DUE TO PNEUMONIA. PATIENT HAS HAD COUGH, CONGESTION, AND FEVER X 2 DAYS. AN OUTPATIENT CHEST XRAY WAS OBTAINED ON 01/13 AND REVEALED LEFT MID AND LOWER LUNG PNEUMONIA. ON ARRIVAL TO THE HOSPITAL, VITALS WERE 98.3-77-20-98%-109/69. OUTPATIENT LABS WERE OBTAINED PRIOR TO ADMISSION. THEY REVEALED THE FOLLOWING ABNORMAL LAB VALUES: WBC 12.5, BUN 24, GLUCOSE 116, TOTAL BILI 1.10. COVID-19 NEGATIVE. AN ABG WAS OBTAINED AND REVEALED: PH 7.300, PC02 94.0, P02 139, HC03 46.3, 02 SAT 99.0, BASE EXCESS 15.7, FI02 28.0. BLOOD AND SPUTUM CULTURES WERE SET UP. HE WAS STARTED ON 1/2NS AT 75 ML/HR, LEVAQUIN 750MG IV DAILY, FORTAZ 1G IV Q8H, PULMICORT NEBS BID, DUONEBS Q4H, TUSSIONEX 5ML PO Q12H PRN, ROBITUSSIN DM 10 ML PO QID, SUPPLEMENTAL OXYGEN, AND HIS HOME MEDICATIONS WERE RESUMED. OTHERWISE, WE PLAN TO FOLLOW UP WITH AM LABS AND CHEST XRAY AND CONTINUE TO [facility]. - Past Medical History Past Medical History: Hypertension, Dyslipidemia, Diabetes, Schizophrenia, Dementia, Depression, Anxiety, CVA, COPD, GERD Additional Medical History: Prostate Cancer, Chronic Cholelithiasis - Past Surgical History Surgical History: Cholecystectomy Additional Surgical History: Prostatectomy, Hiatal Hernia Repair, Left Knee - Family History Family Medical History: Diabetes Mellitus, Coronary Artery Disease, Hypertension - Social History Does patient currently use any type of tobacco product: No Have you used tobacco products in the last 12 months: No Type of Tobacco Use: Cigarettes Alcohol Use: None Drug Use: None - Medications Home Medications: No Known Drug Allergies Allergy (Verified 05/17/19 09:20) CONTINUE taking the following medications codeine-guaifenesin [Cheratussin AC] 10 ml FEEDING TUBE Q6H PRN 01/14/20 [History] metoprolol tartrate 12.5 mg FEEDING TUBE BID 01/14/20 [History] omeprazole 40 mg FEEDING TUBE BID 01/14/20 [History] - Review of Systems Constitutional: Fever, Chills, Weakness Eyes: No Symptoms Reported ENT: No Symptoms Reported Respiratory: See HPI, Cough, Sputum, Wheezing Cardiovascular: No Symptoms Reported Gastrointestinal: No Symptoms Reported Genitourinary: No Symptoms Reported Musculoskeletal: No Symptoms Reported Skin: No Symptoms Reported Neurological: See HPI, Weakness - Physical Exam Vital Signs: Temperature 99.7 F Pulse Rate [Left Brachial] 89 Pulse Rate 74 Respiratory Rate 17 Blood Pressure [Left Arm] 105/56 Blood Pressure 118/63 O2 Sat by Pulse Oximetry 92 Oriented: Normal Eyes: Normal Ear: Normal Nose: Normal Throat: Normal Respiratory: Wheezes Throughout Cardiovascular: Normal : Normal Auscultation: Bowel Sounds: Normal Palpation: Normal Tenderness: Normal, Other (PEG TUBE ) Skin: Normal Musculoskeletal: Motor Deficit Psychiatric: Normal Mood Description: Calm Affect: Normal Speech Pattern: Aphasic - Assessment/Plan (1) Pneumonia Qualifiers: Pneumonia type: due to unspecified organism Laterality: left Lung location: lower lobe of lung Qualified Code(s): J18.9 - Pneumonia, unspecified organism Status: Acute Plan: ADMIT, SUPPLEMENTAL OXYGEN, 1/2NS AT 75 ML/HR, LEVAQUIN 750MG IV DAILY, FORTAZ 1G IV Q8H, PULMICORT NEBS BID, DUONEBS Q4H, TUSSIONEX 5ML PO Q12H PRN, ROBITUSSIN DM 10 ML PO QID, SUPPLEMENTAL OXYGEN, AND HIS HOME MEDICATIONS WERE RESUMED. - Review H&P Reviewed: Yes Patient was examined?: Yes - Allergies Allergies/Adverse Reactions: Allergies Allergy/AdvReac Type Severity Reaction Status Date / Time No Known Drug Allergies Allergy Verified 05/17/19 09:20
[2020-01-15] MEDS: COLACE SYRUP 100 MG UDC PEG SCH (11:29)
[2020-01-15] MEDS: DEPAKENE PEG SCH ×2 (11:30→23:54)
[2020-01-15] MEDS: ELIQUIS PO SCH ×2 (11:31→21:12)
[2020-01-15] MEDS: EFFEXOR XR 75 MG CAP 24-HR PO SCH (11:32)
[2020-01-15] MEDS: LASIX PEG SCH ×2 (11:32→21:09)
[2020-01-15] MEDS: GEODON PO SCH ×2 (11:32→21:11)
[2020-01-15] MEDS: PriLOSEC PO SCH ×2 (11:33→21:11)
[2020-01-15] MEDS: ROBITUSSIN DM PO SCH ×4 (11:33→21:08)
[2020-01-15] MEDS: PROSCAR PEG SCH (11:33)
[2020-01-15] MEDS: LEVAQUIN PREMIX IV 750 MG 750 MG/150 ML BAG IV SCH (11:33)
[2020-01-15] MEDS: THIORIDAZINE 50 MG PEG SCH (11:34)
[2020-01-15] MEDS: VSL#3 PO SCH (11:35)
[2020-01-15] MEDS: NAMENDA TAB 10 MG PEG SCH ×2 (11:35→21:11)
[2020-01-15] MEDS: FLOMAX PEG SCH ×2 (11:35→21:09)
[2020-01-15] MEDS: SINGULAIR TAB 10 MG PEG SCH (11:35)
[2020-01-15] MEDS: XANAX PEG SCH ×2 (11:36→21:09)
[2020-01-15] MEDS: ARTIFICIAL TEARS DROPS OP SCH ×2 (11:36→21:18)
[2020-01-15] MEDS: FLONASE NASAL SPRAY ENOSTRIL SCH ×2 (11:36→21:18)
[2020-01-15] MEDS ORDERED: NS 1/2 1000 ML IV 1,000 ML IV ONE (14:28)
[2020-01-15] MEDS: ASTELIN NASAL SPRAY ENOSTRIL SCH ×2 (14:34→21:27)
[2020-01-15] MEDS ORDERED: NAMENDA TAB 10 MG ONE (19:25)
[2020-01-15] MEDS ORDERED: ARICEPT TAB 10 MG ONE (19:25)
[2020-01-15] MEDS: ARICEPT TAB 10 MG PEG SCH (21:10)
[2020-01-15] MEDS ORDERED: ASTELIN NASAL SPRAY ENOSTRIL ONE (21:24)
[2020-01-16] MEDS: DUONEB 0.5 MG/3 MG (3 mL) NEB SCH ×6 (00:52→20:30)
[2020-01-16] MEDS ORDERED: NS 1/2 1000 ML IV 1,000 ML IV ONE (04:39)
[2020-01-16] MEDS: NS 1/2 1000 ML IV 1,000 ML IV SCH ×2 (04:47→09:49)
[2020-01-16] MEDS: ASTELIN NASAL SPRAY ENOSTRIL SCH ×3 (05:27→21:45)
[2020-01-16] MEDS: FORTAZ or TAZICEF VIAL INJ 1 G in NS 100 ML IV + SPIKE MINIBAG* 100 ML IV SCH ×3 (05:27→21:45)
[2020-01-16 05:39] LABS: BASOPHILS % (AUTO) 0.3 % (0.2-1.0); EOSINOPHILS # (AUTO) 0.1 x10^3/uL (0.0-0.2); EOSINOPHILS % (AUTO) 1.4 % (0.9-2.9); HEMATOCRIT 34.2 % (42.0-54.0); LYMPHOCYTES % (AUTO) 18.4 % (21.0-51.0); MEAN CORPUSCULAR HEMOGLOBIN 31.5 pg (27.0-34.0); MEAN CORPUSCULAR HGB CONC 35.1 g/dL (33.0-35.0); MEAN CORPUSCULAR VOLUME 89.8 fL (80.0-100.0); MEAN PLATELET VOLUME 9.7 fL (7.4-11.0); MONOCYTES # (AUTO) 0.6 x10^3/uL (0.3-0.8); MONOCYTES % (AUTO) 11.2 % (0.0-13.0); NEUTROPHILS # (AUTO) 3.7 x10^3/uL (2.2-4.8); NEUTROPHILS % (AUTO) 68.7 % (42.0-75.0); PLATELET COUNT 119 X10^3/uL (150.0-450.0); RED CELL DISTRIBUTION WIDTH 13.5 % (11.6-16.5); WHITE BLOOD COUNT 5.4 X10^3/uL (3.6-10.0)
[2020-01-16 05:56] LABS: ALANINE AMINOTRANSFERASE 21 Units/L (12-78); ALBUMIN 2.8 g/dL (3.4-5.0); ALKALINE PHOSPHATASE 63 Units/L (46-116); ASPARTATE AMINO TRANSFERASE 16 Units/L (15-37); BLOOD UREA NITROGEN 15 mg/dL (7-18); CALCIUM 8.9 mg/dL (8.5-10.1); CARBON DIOXIDE 28.7 mmol/L (21-32); CHLORIDE 104 mmol/L (98-107); COR CA(FOR HYPOALB) 9.9 mg/dL (8.5-10.1); CREATININE 1.04 mg/dL (0.70-1.30); SODIUM 142 mmol/L (136-145); TOTAL PROTEIN 6.5 g/dL (6.4-8.2); eGFR NON BLACK RACES > 60 (>60)
--- NOTE | 2020-01-16 06:56 | RAD ---
HISTORYSOB, PNEUMONIASTUDYCHEST, 1 [id number] trachea is midline. The cardiac silhouette is accentuated by portable technique. The lungs are clear without focal infiltrate or effusion. The bony thorax is unremarkable.IMPRESSIONNo acute cardiopulmonary disease.Electronically signed by: JAQUELIN ROGERS (Jan 16, 2020 06:54:53)
[2020-01-16] MEDS: PULMICORT NEB TX 0.5 MG NEB SCH ×2 (09:10→20:30)
[2020-01-16] MEDS: DEPAKENE PEG SCH ×2 (09:46→21:45)
[2020-01-16] MEDS: EFFEXOR XR 75 MG CAP 24-HR PO SCH (09:46)
[2020-01-16] MEDS: COLACE SYRUP 100 MG UDC PEG SCH (09:46)
[2020-01-16] MEDS: ARTIFICIAL TEARS DROPS OP SCH ×2 (09:46→21:45)
[2020-01-16] MEDS: ELIQUIS PO SCH ×2 (09:47→21:45)
[2020-01-16] MEDS: FLOMAX PEG SCH ×2 (09:47→21:45)
[2020-01-16] MEDS: LASIX PEG SCH ×2 (09:48→21:45)
[2020-01-16] MEDS: FLONASE NASAL SPRAY ENOSTRIL SCH ×2 (09:48→21:45)
[2020-01-16] MEDS: GEODON PO SCH ×2 (09:48→21:45)
[2020-01-16] MEDS: PROSCAR PEG SCH (09:49)
[2020-01-16] MEDS: LEVAQUIN PREMIX IV 750 MG 750 MG/150 ML BAG IV SCH (09:49)
[2020-01-16] MEDS: NAMENDA TAB 10 MG PEG SCH ×2 (09:49→21:45)
[2020-01-16] MEDS: PriLOSEC PO SCH ×2 (09:49→21:45)
[2020-01-16] MEDS: SINGULAIR TAB 10 MG PEG SCH (09:50)
[2020-01-16] MEDS: ROBITUSSIN DM PO SCH ×4 (09:50→21:45)
[2020-01-16] MEDS: XANAX PEG SCH ×2 (09:50→21:45)
[2020-01-16] MEDS: THIORIDAZINE 50 MG PEG SCH (09:50)
[2020-01-16] MEDS: VSL#3 PO SCH (09:51)
[2020-01-16 12:12] LABS: BILIRUBIN,URINE NEGATIVE (NEGATIVE); BLOOD/HEMOGLOBIN,URINE NEGATIVE (NEGATIVE); GLUCOSE, URINE NEGATIVE (NEGATIVE); KETONES,URINE NEGATIVE (NEGATIVE); LEUKOCYTE ESTERASE ,URINE NEGATIVE (NEGATIVE); NITRITES,URINE NEGATIVE (NEGATIVE); PROTEIN,URINE NEGATIVE (NEGATIVE); UROBILINOGEN,URINE NORMAL (NORMAL)
[2020-01-16 12:18] LABS: APPEARANCE,URINE CLEAR (CLEAR); COLOR,URINE YELLOW (YELLOW)
[2020-01-16] MEDS: ARICEPT TAB 10 MG PEG SCH (21:45)
[2020-01-17] MEDS: DUONEB 0.5 MG/3 MG (3 mL) NEB SCH ×3 (01:15→09:47)
[2020-01-17] MEDS ORDERED: NS 1/2 1000 ML IV 1,000 ML IV ONE (02:18)
[2020-01-17 05:29] LABS: BASOPHILS % (AUTO) 0.4 % (0.2-1.0); EOSINOPHILS # (AUTO) 0.2 x10^3/uL (0.0-0.2); EOSINOPHILS % (AUTO) 3.9 % (0.9-2.9); HEMATOCRIT 36.1 % (42.0-54.0); HEMOGLOBIN 12.2 g/dL (13.5-18.0); LYMPHOCYTES # (AUTO) 1.1 X10^3/uL (1.3-2.9); LYMPHOCYTES % (AUTO) 24.9 % (21.0-51.0); MEAN CORPUSCULAR HEMOGLOBIN 30.8 pg (27.0-34.0); MEAN CORPUSCULAR HGB CONC 33.7 g/dL (33.0-35.0); MEAN CORPUSCULAR VOLUME 91.3 fL (80.0-100.0); MEAN PLATELET VOLUME 9.5 fL (7.4-11.0); MONOCYTES # (AUTO) 0.4 x10^3/uL (0.3-0.8); MONOCYTES % (AUTO) 8.1 % (0.0-13.0); NEUTROPHILS # (AUTO) 2.8 x10^3/uL (2.2-4.8); NEUTROPHILS % (AUTO) 62.7 % (42.0-75.0); PLATELET COUNT 122 X10^3/uL (150.0-450.0); RED BLOOD COUNT 3.96 X10^6/uL (4.7-6.0); RED CELL DISTRIBUTION WIDTH 13.2 % (11.6-16.5); WHITE BLOOD COUNT 4.5 X10^3/uL (3.6-10.0)
[2020-01-17 05:45] LABS: ALANINE AMINOTRANSFERASE 19 Units/L (12-78); ALBUMIN 2.8 g/dL (3.4-5.0); ALKALINE PHOSPHATASE 60 Units/L (46-116); ASPARTATE AMINO TRANSFERASE 16 Units/L (15-37); BLOOD UREA NITROGEN 13 mg/dL (7-18); CALCIUM 9.1 mg/dL (8.5-10.1); CARBON DIOXIDE 28.3 mmol/L (21-32); CHLORIDE 104 mmol/L (98-107); COR CA(FOR HYPOALB) 10.1 mg/dL (8.5-10.1); CREATININE 0.92 mg/dL (0.70-1.30); SODIUM 141 mmol/L (136-145); TOTAL PROTEIN 6.7 g/dL (6.4-8.2); eGFR NON BLACK RACES > 60 (>60)
[2020-01-17] MEDS: ASTELIN NASAL SPRAY ENOSTRIL SCH ×2 (06:25→14:38)
[2020-01-17] MEDS: FORTAZ or TAZICEF VIAL INJ 1 G in NS 100 ML IV + SPIKE MINIBAG* 100 ML IV SCH ×2 (06:25→14:39)
[2020-01-17] MEDS: NS 1/2 1000 ML IV 1,000 ML IV SCH ×2 (07:34→13:16)
--- NOTE | 2020-01-17 08:11 | RAD ---
HISTORY: [Cough]. [Dyspnea].Single portable view of the chest.Comparison: Chest radiograph dated January 16, 2020.Findings:The trachea is midline. The cardiac silhouette is unremarkable. There are increased [perihilar] interstitial opacities seen, suggesting [central bronchitis]. The lungs [are otherwise clear without focal infiltrate or effusion]. The bony thorax [is unremarkable].IMPRESSION:Stable chest findings suggesting central bronchitis.No lobar pneumonia or pleural effusion seen.Electronically signed by: HERBERT KNOTT III (Jan 17, 2020 08:10:01)
[2020-01-17] MEDS: PULMICORT NEB TX 0.5 MG NEB SCH (09:47)
[2020-01-17] MEDS: ARTIFICIAL TEARS DROPS OP SCH (10:14)
[2020-01-17] MEDS: COLACE SYRUP 100 MG UDC PEG SCH (10:15)
[2020-01-17] MEDS: DEPAKENE PEG SCH (10:15)
[2020-01-17] MEDS: EFFEXOR XR 75 MG CAP 24-HR PO SCH (10:15)
[2020-01-17] MEDS: FLONASE NASAL SPRAY ENOSTRIL SCH (10:16)
[2020-01-17] MEDS: FLOMAX PEG SCH (10:16)
[2020-01-17] MEDS: GEODON PO SCH (10:16)
[2020-01-17] MEDS: ELIQUIS PO SCH (10:16)
[2020-01-17] MEDS: LASIX PEG SCH (10:17)
[2020-01-17] MEDS: LEVAQUIN PREMIX IV 750 MG 750 MG/150 ML BAG IV SCH (10:17)
[2020-01-17] MEDS: NAMENDA TAB 10 MG PEG SCH (10:18)
[2020-01-17] MEDS: PriLOSEC PO SCH (10:18)
[2020-01-17] MEDS: SINGULAIR TAB 10 MG PEG SCH (10:18)
[2020-01-17] MEDS: THIORIDAZINE 50 MG PEG SCH (10:18)
[2020-01-17] MEDS: PROSCAR PEG SCH (10:18)
[2020-01-17] MEDS: ROBITUSSIN DM PO SCH ×2 (10:18→14:38)
[2020-01-17] MEDS: XANAX PEG SCH (10:19)
[2020-01-17] MEDS: VSL#3 PO SCH (10:19)
[2020-01-17] MEDS ORDERED: FLONASE NASAL SPRAY ENOSTRIL SCH (12:00)
[2020-01-17] MEDS ORDERED: RHINOCORT ALLERGY NASAL SPRAY ENOSTRIL SCH (12:00)
[2020-01-17 13:12] VITALS: BP 103/57
[2020-01-17] MEDS ORDERED: VIBRAMYCIN PO SCH (21:00)
--- NOTE | 2020-01-21 08:39 | PCM.PROG ---
Progress Note - Progress Note for Day of Date of Exam: 01/16/20 - Subjective Subjective: IS BEING TREATED FOR LEFT MID AND LOWER LUNG PNEUMONIA. TODAY, HE IS ALERT AND ORIENTED, LYING IN BED ON MORNING ROUNDS. HE CONTINUES WITH A PRODUCTIVE COUGH THIS MORNING. HE IS CURRENTLY ON OXYGEN VIA NASAL CANNULA AT 2 LITERS/MIN. ON EXAMINATION, HEART IS REGULAR IN RATE AND RHYTHM. BILATERAL LUNGS ARE NOTED WITH SCATTERED WHEEZING THROUGHOUT. ABDOMEN IS ROUND, SOFT, AND NON-TENDER WITH NORMAL BOWEL SOUNDS NOTED IN ALL QUADRANTS. HIS VITALS THIS MORNING ARE: 98.2-76-20-99%NC-100/57. LABS WERE OBTAINED. ABNORMAL LAB VALUES INCLUDE THE FOLLOWING: RBC 3.80, HGB 12.0, HCT 34.2, PLT COUNT 119, ALBUMIN 2.8. BLOOD AND SPUTUM CULTURES ARE PENDING. A CHEST XRAY WAS OBTAINED AND REVEALED: trachea is midline. The cardiac silhouette is accentuated by portable technique. The lungs are clear without focal infiltrate or effusion. The bony thorax is unremarkable. SHE IS CURRENTLY RECEIVING 1/2NS AT 75 ML/HR, LEVAQUIN 750MG IV DAILY, FORTAZ 1G IV Q8H, PULMICORT NEBS BID, DUONEBS Q4H, TUSSIONEX 5ML PO Q12H PRN, ROBITUSSIN DM 10 ML PO QID, SUPPLEMENTAL OXYGEN, AND HIS HOME MEDICATIONS WERE RESUMED. OTHERWISE, WE WILL CONTINUE WITH CURRENT PLAN OF CARE TODAY. WE WILL FOLLOW UP WITH AM LABS AND CONTINUE TO MONITOR. - Past Medical Family Social History Past Med/Fam/Surg Hx: No changes since H&P Allergies: Allergies No Known Drug Allergies Allergy (Verified 05/17/19 09:20) - Review of Systems ROS: No change since H&P - Vital Signs and I&O's Vital Signs: Temperature 97.3 F Pulse Rate [Left Brachial] 78 Pulse Rate 64 Respiratory Rate 18 Blood Pressure [Left Arm] 103/57 Blood Pressure 118/63 O2 Sat by Pulse Oximetry 96 - Physical Exam Oriented: Normal Eyes: Normal Ear: Normal Nose: Normal Throat: Normal Respiratory: Generalized, Wheezes Cardiovascular: Normal : Normal Auscultation: Bowel Sounds: Normal Palpation: Normal Tenderness: Normal, Other (PEG TUBE ) Skin: Normal Musculoskeletal: Motor Deficit Psychiatric: Normal Mood Description: Calm Affect: Normal Speech Pattern: Aphasic - Laboratory and Diagnostics Result Diagrams: 01/17/20 04:18 01/17/20 04:18 Labs: 01/14/20 11:05 Blood Blood Culture - Final 01/14/20 11:00 Blood Blood Culture - Final 01/14/20 16:55 Sputum - Expectorated Sputum Sputum Culture - Final Morganella Morganii 01/14/20 16:55 Sputum - Expectorated Sputum - Final Laboratory WBC 4.5 X10^3/uL (3.6-10.0) 01/17/20 04:18 RBC 3.96 X10^6/uL (4.7-6.0) L 01/17/20 04:18 Hgb 12.2 g/dL (13.5-18.0) L 01/17/20 04:18 Hct 36.1 % (42.0-54.0) L 01/17/20 04:18 MCV 91.3 fL (80.0-100.0) 01/17/20 04:18 MCH 30.8 pg (27.0-34.0) 01/17/20 04:18 MCHC 33.7 g/dL (33.0-35.0) 01/17/20 04:18 RDW 13.2 % (11.6-16.5) 01/17/20 04:18 Plt Count 122 X10^3/uL (150.0-450.0) L 01/17/20 04:18 MPV 9.5 fL (7.4-11.0) 01/17/20 04:18 Neut % (Auto) 62.7 % (42.0-75.0) 01/17/20 04:18 Lymph % (Auto) 24.9 % (21.0-51.0) 01/17/20 04:18 [place] % (Auto) 8.1 % (0.0-13.0) 01/17/20 04:18 Eos % (Auto) 3.9 % (0.9-2.9) H 01/17/20 04:18 Baso % (Auto) 0.4 % (0.2-1.0) 01/17/20 04:18 Neut # (Auto) 2.8 x10^3/uL (2.2-4.8) 01/17/20 04:18 Lymph # (Auto) 1.1 X10^3/uL (1.3-2.9) L 01/17/20 04:18 [place] # (Auto) 0.4 x10^3/uL (0.3-0.8) 01/17/20 04:18 Eos # (Auto) 0.2 x10^3/uL (0.0-0.2) 01/17/20 04:18 Baso # (Auto) 0.0 X10^3/uL (0.0-0.1) 01/17/20 04:18 Absolute Nucleated RBC 0.1 /100WBC 01/17/20 04:18 Sodium 141 mmol/L (136-145) 01/17/20 04:18 Corrected Sodium TNP 01/17/20 04:18 Potassium 4.0 mmol/L (3.5-5.1) 01/17/20 04:18 Chloride 104 mmol/L (98-107) 01/17/20 04:18 Carbon Dioxide 28.3 mmol/L (21-32) 01/17/20 04:18 BUN 13 mg/dL (7-18) 01/17/20 04:18 Creatinine 0.92 mg/dL (0.70-1.30) 01/17/20 04:18 Est GFR (MDRD) Af Amer > 60 (>60) 01/17/20 04:18 Est GFR (MDRD) Non-Af > 60 (>60) 01/17/20 04:18 Glucose 72 mg/dL (65-99) 01/17/20 04:18 Calcium 9.1 mg/dL (8.5-10.1) 01/17/20 04:18 Corrected Calcium 10.1 mg/dL (8.5-10.1) 01/17/20 04:18 Total Bilirubin 0.40 mg/dL (0.2-1.0) 01/17/20 04:18 AST 16 Units/L (15-37) 01/17/20 04:18 ALT 19 Units/L (12-78) 01/17/20 04:18 Alkaline Phosphatase 60 Units/L (46-116) 01/17/20 04:18 Total Protein 6.7 g/dL (6.4-8.2) 01/17/20 04:18 Albumin 2.8 g/dL (3.4-5.0) L 01/17/20 04:18 Globulin 3.9 g/dL (2.5-4.5) 01/17/20 04:18 Albumin/Globulin Ratio 0.7 Ratio (1.1-2.1) L 01/17/20 04:18 Specimen Type Clean catch urine 01/16/20 12:05 Urine Color Yellow (YELLOW) 01/16/20 12:05 Urine Appearance Clear (CLEAR) 01/16/20 12:05 Urine pH 7.0 (5.0 - 8.0) 01/16/20 12:05 Ur Specific [place] 1.015 (1.000-1.030) 01/16/20 12:05 Urine Protein Negative (NEGATIVE) 01/16/20 12:05 Urine Glucose (UA) Negative (NEGATIVE) 01/16/20 12:05 Urine Ketones Negative (NEGATIVE) 01/16/20 12:05 Urine Occult Blood Negative (NEGATIVE) 01/16/20 12:05 Urine Nitrite Negative (NEGATIVE) 01/16/20 12:05 Urine Bilirubin Negative (NEGATIVE) 01/16/20 12:05 Urine Urobilinogen Normal (NORMAL) 01/16/20 12:05 Ur Leukocyte Esterase Negative (NEGATIVE) 01/16/20 12:05 - Plan (1) Pneumonia Status: Acute Qualifiers: Pneumonia type: due to unspecified organism Laterality: left Lung location: lower lobe of lung Qualified Code(s): J18.9 - Pneumonia, unspecified organism Plan: SUPPLEMENTAL OXYGEN, 1/2NS AT 75 ML/HR, LEVAQUIN 750MG IV DAILY, FORTAZ 1G IV Q8H, PULMICORT NEBS BID, DUONEBS Q4H, TUSSIONEX 5ML PO Q12H PRN, ROBITUSSIN DM 10 ML PO QID, SUPPLEMENTAL OXYGEN, AND HIS HOME MEDICATIONS WERE RESUMED.
== END 2020-01-17 14:00 | DRG 195 ==
LOC: MED/SURG
PROVIDERS: ADMIT Internal Medicine; ATTEND Internal Medicine
DX: K21.9 Gastro-esophageal reflux disease without esophagitis; Z93.1 Gastrostomy status; R26.89 Other abnormalities of gait and mobility; E78.2 Mixed hyperlipidemia; J44.9 Chronic obstructive pulmonary disease, unspecified; I10 Essential (primary) hypertension; F41.8 Other specified anxiety disorders; R06.02 Shortness of breath; E11.65 Type 2 diabetes mellitus with hyperglycemia; J18.8 Other pneumonia, unspecified organism

== ENCOUNTER 2020-11-17 17:41 | Inpatient (IN) ==
--- NOTE | 2020-11-17 18:28 | DR.URIAD ---
HPI Time Seen Time Seen by Provider: 11/17/20 18:13 PCP Primary Care Physician: Phong HPI Comment HPI Comment: PATIENT IS 75YR OLD MALE IN ER WITH FEVER AND LOW SODIUM AND LOW O2 SATURATION. LABS WERE DONE AND CHEST XRAY TODAY. WAS GETTING WORSE SO CAME TO ER. Complaint Chief Complaint Doctors Comments: FEVER AND LOW SODIUM AND LOW O2 SATURATION NOTED AT [facility]. Chief Complaint:: Pt brought from [facility] for fever and low sodium. Nurse states pt does not normally wear O2 but his sat has been 88% - 89% today. COVID-19 Coronavirus risk:travel/contact w/high risk person: No Has patient experienced Coronavirus symptoms: Yes Coronavirus symptoms experienced: Fever and Coughing Reviewed Nurses Notes Reviewed: Yes Source History Provided: Patient and Alf Mode of Arrival Mode of Arrival: Stretcher Timing Onset of Chief Complaint: 11/17/20 Context Recent Treated Infections: None History of Respiratory: None Quality Quality of Cough: Productive and Clear Rhinorrhea: Clear Shortness of Breath: Mild Associated Signs and Symptoms Other Signs and Symptoms: Cough, Nasal Symptoms, Shortness of Breath, URI and Vomitting PMH PMH Past Medical History: Yes Past Medical History: Anxiety, COPD, CVA, Dementia, Depression, Diabetes, Dyslipidemia, GERD, Hypertension and Schizophrenia Past Surgical History: Yes Surgical History: Cholecystectomy Family History History of Family Medical Conditions: Yes Family Medical History: Diabetes Mellitus, Coronary Artery Disease and Hypertension Social History Does patient currently use any type of tobacco product: No Have you used tobacco products in the last 12 months: No Type of Tobacco Use: None Does any household member use tobacco: No Alcohol Use: None Do you use any recreational Drugs:: No Lives With: Other Lives Where: Alf Travel Risk Coronavirus risk:travel/contact w/high risk person: No Has patient experienced Coronavirus symptoms: Yes Coronavirus symptoms experienced: Fever and Coughing Infectious screening In the last 2 months have you had wt loss of >10#?: NO Have you had fever, night sweats or hemotysis?: No Have you traveled outside the country in the last 6 months?: No Isolation: Standard ROS Review of Systems Constitutional: See HPI, Fever, Weakness and Fatigue Eyes: No Symptoms Reported and See HPI ENTM: See HPI, Nose Discharge and Nose Congestion Respiratoy: See HPI, Productive Cough and Short of Breath Cardiovascular: No Symptoms Reported and See HPI; negative Chest Pain Gastrointestinal/Abdominal: See HPI and Vomiting; negative Abdominal Pain and Diarrhea Genitourinary: See HPI and Other (URINARY INCONTINENCE.) Neurological: See HPI, Pre-existing Deficit (APHASIA.) and Weakness Musculoskeletal: No Symptoms Reported and See HPI Integumentary: No Symptoms Reported and See HPI Hematologic/Lymphatic: No Symptoms Reported and See HPI; negative Easy Bruising Endocrine: No Symptoms Reported and See HPI Psychiatric: No Symptoms Reported and See HPI All Other Systems: Reviewed and Negative PE Vital Signs Vitals: Temperature 98.6 F Pulse Rate 91 Respiratory Rate 23 Blood Pressure [Left Arm] 99/63 Blood Pressure 117/59 O2 Sat by Pulse Oximetry 95 General Limitations: Physical Limitation (POST CVA.) General Appearance: Alert and In No Apparent Distress Head Head Exam: Normal Inspection Eyes Eye exam: Normal Appearance and PERRL; negative Scleral Icterus and Conjunctival Injection ENT ENT Exam: Normal Exam, Normal Oropharynx, Normal External Ear Exam and TM's Normal Bilaterally External Ear Exam: Normal External Inspection; negative Mastoid Tenderness TM/Canal Exam: Bilateral: Normal Nose Exam: Normal Nose Exam Mouth Exam: Normal Inspection; negative Lip Swelling and Tongue Swelling Throat Exam: Normal Inspection and Other (NONE NOTED.) Neck Neck Exam: Normal Inspection and Trachea Midline; negative Tenderness and Lymphadenopathy Chest Chest Inspection: Normal Inspection and Symmetric Chest Wall Rise; negative Tenderness Respiratory Respiratory Exam: Normal Lung Sounds Bilat; negative Accessory Muscle Use, Chest Wall Tenderness and Respiratory Distress Respiratory Exam: Bilateral: Rhonchi and Lower: Rhonchi Cardiovascular Cardiovascular Exam: Regular Rate, Normal Rhythm and Normal Heart Sounds; negative Systolic Murmur and Diastolic Murmur Abdominal Exam Abdominal Exam: Normal Inspection, Normal Bowel Sounds and Soft; negative Tenderness Extremeties Extremities Exam: Normal Inspection and Normal Capillary Refill Back Back Exam: Normal Inspection; negative (R) CVA Tenderness and (L) CVA Tenderness Neurologic Neurological Exam: Alert, Oriented X3 and Motor Sensory Deficit Psychiatric Psychiatric Exam: Normal Affect and Normal Mood Skin Skin Exam: Warm, Dry, Intact and Normal Color ROR Labs Reviewed Result Diagrams: 11/17/20 18:49 11/17/20 18:49 Laboratory: WBC 7.2 X10^3/uL (3.6-10.0) 11/17/20 18:49 RBC 4.63 X10^6/uL (4.7-6.0) L 11/17/20 18:49 Hgb 14.8 g/dL (13.5-18.0) 11/17/20 18:49 Hct 41.6 % (42.0-54.0) L 11/17/20 18:49 MCV 89.7 fL (80.0-100.0) 11/17/20 18:49 MCH 32.0 pg (27.0-34.0) 11/17/20 18:49 MCHC 35.7 g/dL (33.0-35.0) H 11/17/20 18:49 RDW 13.4 % (11.6-16.5) 11/17/20 18:49 Plt Count 131 X10^3/uL (150.0-450.0) L 11/17/20 18:49 MPV 8.4 fL (7.4-11.0) 11/17/20 18:49 Neut % (Auto) 87.2 % (42.0-75.0) H 11/17/20 18:49 Lymph % (Auto) 6.0 % (21.0-51.0) L 11/17/20 18:49 [place] % (Auto) 6.1 % (0.0-13.0) 11/17/20 18:49 Eos % (Auto) 0.1 % (0.9-2.9) L 11/17/20 18:49 Baso % (Auto) 0.6 % (0.2-1.0) 11/17/20 18:49 Neut # (Auto) 6.3 x10^3/uL (2.2-4.8) H 11/17/20 18:49 Lymph # (Auto) 0.4 X10^3/uL (1.3-2.9) L 11/17/20 18:49 [place] # (Auto) 0.4 x10^3/uL (0.3-0.8) 11/17/20 18:49 Eos # (Auto) 0.0 x10^3/uL (0.0-0.2) 11/17/20 18:49 Baso # (Auto) 0.0 X10^3/uL (0.0-0.1) 11/17/20 18:49 Absolute Nucleated RBC 0.0 /100WBC 11/17/20 18:49 Sample Site Lrad 11/17/20 20:13 ABG pH 7.470 (7.35-7.45) H 11/17/20 20:13 ABG pCO2 36.0 mmHg (35.0-45.0) 11/17/20 20:13 ABG pO2 140.0 mmHg (80.0-100.0) H 11/17/20 20:13 ABG HCO3 26.2 mmol/L (22-26) H 11/17/20 20:13 ABG O2 Saturation 99.0 % (90-100) 11/17/20 20:13 ABG Base Excess 2.6 mmol/L (-2.0-2.0) H 11/17/20 20:13 Jeremie Test Pos 11/17/20 20:13 A-a Gradient 15.0 mmHg 11/17/20 20:13 FiO2 28.0 11/17/20 20:13 Blood Gas Comments Carmella well mts 11/17/20 20:13 Sodium 130 mmol/L (136-145) L 11/17/20 18:49 Corrected Sodium TNP 11/17/20 18:49 Potassium 4.0 mmol/L (3.5-5.1) 11/17/20 18:49 Chloride 95 mmol/L (98-107) L 11/17/20 18:49 Carbon Dioxide 27.4 mmol/L (21-32) 11/17/20 18:49 BUN 17 mg/dL (7-18) 11/17/20 18:49 Creatinine 1.11 mg/dL (0.70-1.30) 11/17/20 18:49 Est GFR (MDRD) Af Amer > 60 (>60) 11/17/20 18:49 Est GFR (MDRD) Non-Af > 60 (>60) 11/17/20 18:49 Glucose 78 mg/dL (65-99) 11/17/20 18:49 Lactic Acid 1.0 mmol/L (0.4-2.0) 11/17/20 18:49 Calcium 9.4 mg/dL (8.5-10.1) 11/17/20 18:49 Corrected Calcium TNP 11/17/20 18:49 Total Bilirubin 0.90 mg/dL (0.2-1.0) 11/17/20 18:49 AST 22 Units/L (15-37) 11/17/20 18:49 ALT 24 Units/L (12-78) 11/17/20 18:49 Alkaline Phosphatase 72 Units/L (46-116) 11/17/20 18:49 Creatine Kinase 238 Units/L (39-308) 11/17/20 18:49 CK-MB (CK-2) 2.0 ng/mL (0-4.0) 11/17/20 18:49 CK/CKMB % Calc 0.8 % (<4) 11/17/20 18:49 Troponin I < 0.02 ng/mL (0-1.5) 11/17/20 18:49 Total Protein 7.6 g/dL (6.4-8.2) 11/17/20 18:49 Albumin 3.6 g/dL (3.4-5.0) 11/17/20 18:49 Globulin 4.0 g/dL (2.5-4.5) 11/17/20 18:49 Albumin/Globulin Ratio 0.9 Ratio (1.1-2.1) L 11/17/20 18:49 Amylase 50 Units/L (25-115) 11/17/20 18:49 Lipase 73 Units/L (73-393) 11/17/20 18:49 Specimen Type Catherized urine 11/17/20 20:07 Urine Color Yellow (YELLOW) 11/17/20 20:07 Urine Appearance Clear (CLEAR) 11/17/20 20:07 Urine pH 8.0 (5.0 - 8.0) 11/17/20 20:07 Ur Specific [place] 1.015 (1.000-1.030) 11/17/20 20:07 Urine Protein Negative (NEGATIVE) 11/17/20 20:07 Urine Glucose (UA) Negative (NEGATIVE) 11/17/20 20:07 Urine Ketones Negative (NEGATIVE) 11/17/20 20:07 Urine Occult Blood Negative (NEGATIVE) 11/17/20 20:07 Urine Nitrite Negative (NEGATIVE) 11/17/20 20:07 Urine Bilirubin Negative (NEGATIVE) 11/17/20 20:07 Urine Urobilinogen 1+ (NORMAL) 11/17/20 20:07 Ur Leukocyte Esterase Negative (NEGATIVE) 11/17/20 20:07 Urine RBC None seen /HPF (0-3) 11/17/20 20:07 Urine WBC 3-5 /HPF (0-5) 11/17/20 20:07 Ur Squamous Epith Cells Rare /HPF (NEGATIVE) 11/17/20 20:07 Urine Bacteria Trace /HPF (NEGATIVE) 11/17/20 20:07 Ur Culture Indicated? No/not indicated 11/17/20 20:07 SARS-CoV-2 (PCR) Negative (NEGATIVE) 11/17/20 20:46 Influenza Type A (PCR) Negative (NEGATIVE) 11/17/20 20:46 Influenza Type B (PCR) Negative (NEGATIVE) 11/17/20 20:46 RSV (PCR) Negative (NEGATIVE) 11/17/20 20:46 Opioid Opioid Risk Tool Age (Larry box if 16-45): No History of Preadolescent Sexual Abuse: No Total: 0 Total Score Risk Category: Low Risk Copyright: Hang CALLAHAN predicting aberrant behaviors Diagnosis Discharge Problem: Acute dehydration, Bronchitis, Acute hyponatremia Fever Qualifiers: Fever type: unspecified Qualified Code(s): R50.9 - Fever, unspecified
[2020-11-17 19:06] LABS: BASOPHILS % (AUTO) 0.6 % (0.2-1.0); EOSINOPHILS % (AUTO) 0.1 % (0.9-2.9); HEMATOCRIT 41.6 % (42.0-54.0); HEMOGLOBIN 14.8 g/dL (13.5-18.0); LYMPHOCYTES # (AUTO) 0.4 X10^3/uL (1.3-2.9); MEAN CORPUSCULAR HGB CONC 35.7 g/dL (33.0-35.0); MEAN CORPUSCULAR VOLUME 89.7 fL (80.0-100.0); MEAN PLATELET VOLUME 8.4 fL (7.4-11.0); MONOCYTES # (AUTO) 0.4 x10^3/uL (0.3-0.8); MONOCYTES % (AUTO) 6.1 % (0.0-13.0); NEUTROPHILS # (AUTO) 6.3 x10^3/uL (2.2-4.8); NEUTROPHILS % (AUTO) 87.2 % (42.0-75.0); PLATELET COUNT 131 X10^3/uL (150.0-450.0); RED BLOOD COUNT 4.63 X10^6/uL (4.7-6.0); RED CELL DISTRIBUTION WIDTH 13.4 % (11.6-16.5); WHITE BLOOD COUNT 7.2 X10^3/uL (3.6-10.0)
[2020-11-17] MEDS ORDERED: ZOSYN VIAL 3.375 GRAMS 3.375 G in NS 50 ML IV + SPIKE MINIBAG* 50 ML IV ONE (19:18)
[2020-11-17 19:28] LABS: ALANINE AMINOTRANSFERASE 24 Units/L (12-78); ALBUMIN 3.6 g/dL (3.4-5.0); ALKALINE PHOSPHATASE 72 Units/L (46-116); AMYLASE 50 Units/L (25-115); ASPARTATE AMINO TRANSFERASE 22 Units/L (15-37); BLOOD UREA NITROGEN 17 mg/dL (7-18); CALCIUM 9.4 mg/dL (8.5-10.1); CARBON DIOXIDE 27.4 mmol/L (21-32); CHLORIDE 95 mmol/L (98-107); CKMB % 0.8 % (<4); CREATINE KINASE 238 Units/L (39-308); CREATININE 1.11 mg/dL (0.70-1.30); LIPASE 73 Units/L (73-393); SODIUM 130 mmol/L (136-145); TOTAL PROTEIN 7.6 g/dL (6.4-8.2); TROPONIN I < 0.02 ng/mL (0-1.5); eGFR NON BLACK RACES > 60 (>60)
[2020-11-17] MEDS ORDERED: NS 1000 ML 1,000 ML ONE (19:31)
[2020-11-17] MEDS ORDERED: ZOFRAN INJ 4 MG VIAL IVP ONE (19:32)
[2020-11-17] MEDS ORDERED: ZOFRAN INJ 4 MG VIAL ONE (19:38)
[2020-11-17] MEDS: NS 1000 ML 1,000 ML IV SCH (20:00)
[2020-11-17 20:15] LABS: ABG ALLEN TEST POS; ABG BASE EXCESS 2.6 mmol/L (-2.0-2.0); ABG HCO3 26.2 mmol/L (22-26)
[2020-11-17] MEDS ORDERED: NS 100 ML IV 100 ML ONE (20:26)
[2020-11-17] MEDS ORDERED: ZOSYN VIAL 3.375 GRAMS IV ONE (20:26)
[2020-11-17 20:32] LABS: BILIRUBIN,URINE NEGATIVE (NEGATIVE); BLOOD/HEMOGLOBIN,URINE NEGATIVE (NEGATIVE); GLUCOSE, URINE NEGATIVE (NEGATIVE); KETONES,URINE NEGATIVE (NEGATIVE); LEUKOCYTE ESTERASE ,URINE NEGATIVE (NEGATIVE); NITRITES,URINE NEGATIVE (NEGATIVE); PROTEIN,URINE NEGATIVE (NEGATIVE); UROBILINOGEN,URINE 1+ (NORMAL)
[2020-11-17 20:38] LABS: APPEARANCE,URINE CLEAR (CLEAR); COLOR,URINE YELLOW (YELLOW); RBC,URINE NONE SEEN /HPF (0-3)
[2020-11-17 20:39] LABS: BACTERIA,URINE TRACE /HPF (NEGATIVE); SQUAMOUS EPITHELIAL CELL,UR RARE /HPF (NEGATIVE)
[2020-11-18] MEDS: ZOSYN VIAL 3.375 GRAMS 3.375 G in NS 50 ML IV + SPIKE MINIBAG* 50 ML IV SCH ×5 (00:31→21:59)
[2020-11-18] MEDS ORDERED: ROBITUSSIN AC PEG PRN (00:40)
[2020-11-18 01:35] LABS: CKMB % 0.8 % (<4); CREATINE KINASE 236 Units/L (39-308); CREATINE KINASE MB 1.9 ng/mL (0-4.0); TROPONIN I < 0.02 ng/mL (0-1.5)
[2020-11-18] MEDS ORDERED: ASTELIN NASAL SPRAY ENOSTRIL ONE (05:07)
[2020-11-18] MEDS: NS 1000 ML 1,000 ML IV SCH ×3 (05:47→22:00)
[2020-11-18] MEDS: ASTELIN NASAL SPRAY ENOSTRIL SCH ×3 (05:47→21:28)
[2020-11-18 06:34] LABS: BASOPHILS % (AUTO) 0.2 % (0.2-1.0); HEMATOCRIT 38.1 % (42.0-54.0); HEMOGLOBIN 13.2 g/dL (13.5-18.0); LYMPHOCYTES # (AUTO) 1.3 X10^3/uL (1.3-2.9); LYMPHOCYTES % (AUTO) 8.9 % (21.0-51.0); MEAN CORPUSCULAR HEMOGLOBIN 31.4 pg (27.0-34.0); MEAN CORPUSCULAR HGB CONC 34.8 g/dL (33.0-35.0); MEAN CORPUSCULAR VOLUME 90.2 fL (80.0-100.0); MONOCYTES % (AUTO) 7.3 % (0.0-13.0); NEUTROPHILS % (AUTO) 83.6 % (42.0-75.0); PLATELET COUNT 150 X10^3/uL (150.0-450.0); RED BLOOD COUNT 4.22 X10^6/uL (4.7-6.0); RED CELL DISTRIBUTION WIDTH 13.3 % (11.6-16.5); WHITE BLOOD COUNT 14.3 X10^3/uL (3.6-10.0)
[2020-11-18 06:57] LABS: ALANINE AMINOTRANSFERASE 19 Units/L (12-78); ALBUMIN 3.1 g/dL (3.4-5.0); ALKALINE PHOSPHATASE 55 Units/L (46-116); ASPARTATE AMINO TRANSFERASE 21 Units/L (15-37); BLOOD UREA NITROGEN 18 mg/dL (7-18); CALCIUM 8.9 mg/dL (8.5-10.1); CARBON DIOXIDE 24.2 mmol/L (21-32); CHLORIDE 98 mmol/L (98-107); CKMB % 0.9 % (<4); COR CA(FOR HYPOALB) 9.6 mg/dL (8.5-10.1); CREATINE KINASE 208 Units/L (39-308); CREATINE KINASE MB 1.9 ng/mL (0-4.0); CREATININE 1.17 mg/dL (0.70-1.30); MAGNESIUM 2.1 mg/dL (1.7-2.9); SODIUM 131 mmol/L (136-145); TOTAL PROTEIN 6.9 g/dL (6.4-8.2); TROPONIN I < 0.02 ng/mL (0-1.5); eGFR NON BLACK RACES > 60 (>60)
[2020-11-18] MEDS ORDERED: TYLENOL ELIXIR 325 MG UDC PEG PRN (07:28)
[2020-11-18] MEDS ORDERED: ARTIFICIAL TEARS DROPS AFFEYE SCH (09:00)
[2020-11-18] MEDS ORDERED: PROVENTIL NEB TX 0.083% 2.5MG/ 3ML NEB SCH (09:00)
[2020-11-18] MEDS: PULMICORT NEB TX 0.5 MG NEB SCH ×2 (09:43→20:40)
[2020-11-18] MEDS: COLACE SYRUP 100 MG UDC PEG SCH (09:58)
[2020-11-18] MEDS: ARTIFICIAL TEARS DROPS OP SCH ×2 (09:58→21:17)
[2020-11-18] MEDS: ELIQUIS NG SCH ×2 (09:58→21:18)
[2020-11-18] MEDS: EFFEXOR XR 75 MG CAP 24-HR PO SCH (09:59)
[2020-11-18] MEDS: FLOMAX PO SCH ×2 (09:59→21:18)
[2020-11-18] MEDS: GEODON PO SCH ×2 (09:59→21:20)
[2020-11-18] MEDS: FLONASE NASAL SPRAY ENOSTRIL SCH ×2 (09:59→21:18)
[2020-11-18] MEDS: PROSCAR PEG SCH (10:00)
[2020-11-18] MEDS: XANAX PEG SCH ×2 (10:00→21:28)
[2020-11-18] MEDS: NAMENDA TAB 10 MG PEG SCH ×2 (10:00→21:26)
[2020-11-18] MEDS: LOPRESSOR TAB 25 MG PEG SCH ×2 (10:00→21:26)
[2020-11-18] MEDS: LASIX PEG SCH ×2 (10:00→21:23)
[2020-11-18] MEDS: PriLOSEC PO SCH ×2 (10:00→21:27)
[2020-11-18] MEDS: SINGULAIR TAB 10 MG PEG SCH (10:01)
[2020-11-18] MEDS: THIORIDAZINE 50 MG PEG SCH (11:00)
[2020-11-18] MEDS: DEPAKENE PEG SCH ×2 (11:00→21:18)
--- NOTE | 2020-11-18 12:05 | RAD ---
HISTORYSOB, FEVER HTN, DM, CVA, COPD GBSTUDYCHEST, 1 VIEWCOMPARISONPortable chest November 17, 2020.FINDINGSThe trachea is midline. The cardiac silhouette is unremarkable. The left lung is clear but there is a new infiltrate in the right lung base medially consistent with pneumonia and this is new when compared to the prior chest film November 17, 2020. No effusion is observed. The bony thorax is unremarkable.IMPRESSIONNew infiltrate right lung base medially consistent with pneumonia. Radiographic follow-up is recommended.Electronically signed by: ASTON NOLEN (Nov 18, 2020 12:03:41)
--- NOTE | 2020-11-18 12:25 | DR.H&P ---
H&P - History & Physical for Day of: H&P Date: 11/17/20 - Chief Complaint Chief Complaint: COUGH, FEVER, HYPOXIA, LOW SODIUM LEVELS - History of Present Illness History of Present Illness: IS A 74 YEAR OLD PATIENT OF OURS. HE IS A RESIDENT OF [facility]. HE PRESENTED TO THE ER WITH REPORTS OF FEVER, COUGH, LOW OXYGEN, AND LOW SODIUM LEVELS. [facility] STAFF REPORTS THAT HIS OXYGEN SATURATIONS ON OXYGEN VIA NASAL CANNULA HAVE BEEN 88-89% TODAY. OUTPATIENT LABS REVEALED A SODIUM OF 130. ON ARRIVAL TO THE HOSPITAL, VITALS WERE 100.4-107-22-97%-112/57. LABS WERE REPEATED. THEY REVEALED THE FOLLOWING ABNORMAL LAB VALUES: RBC 4.63, HCT 41.6, PLT COUNT 131, SODIUM 130, CHLORIDE 95. CARDIAC ENZYMES WERE WITHIN NORMAL LIMITS. URINALYSIS WAS OBTAINED AND REVEALED: WBC 3-5, RBE NONE SEEN, LEUKOCYTES NEGATIVE, BACTERIA TRACE. COVID-19 NEGATIVE. AN ABG WAS OBTAINED AND REVEALED: PH 7.470, PC02 36, P02 140, HC03 26.2, 02 SAT 99, BASE EXCESS 2.6, A-A GRADIENT 15, FI02 28. BLOOD CULTURES WERE SET UP. EKG OBTAINED AND REVEALED: SINUS TACHYCARDIA. IN THE ER, HE WAS GIVEN ZOSYN 3.375G IV X 1, ZOFRAN 4MG IV X 1. HE WAS ADMITTED TO THE HOSPTIAL FOR FURTHER EVALUATION AND TREATMENT OF BRONCHOPNEUMONIA, HYPONATREMIA, DEHYDRATION, AND FEVER. HE WAS STARTED ON NORMAL SALINE AT 125ML/HR, ZOSYN 3.375G IV TID, LEVAQUIN 500MG IV DAILY, ALBUTEROL NEB TX TID, PULMICORT NEB TIX BID, ROBITUSSIN AC 10ML PO Q6H, AND HIS HOME MEDICATIONS WERE RESUMED. OTHERWISE, WE PLAN TO FOLLOW UP WITH AM LABS AND CHEST XRAY AND CONTINUE TO [facility]. TIME SPENT ON CLINICAL ASSESSMENT, REVIEWING LABS AND IMAGING, DECISION MAKING, AND DOCUMENTAT ION GREATER THAN 75 MINUTES. - Past Medical History Past Medical History: Hypertension, Dyslipidemia, Diabetes, Schizophrenia, Dementia, Depression, Anxiety, CVA, COPD, GERD Additional Medical History: Prostate Cancer, Chronic Cholelithiasis - Past Surgical History Surgical History: Cholecystectomy, Other Additional Surgical History: Prostatectomy, Hiatal Hernia Repair, Left Knee - Family History Family Medical History: Diabetes Mellitus, Coronary Artery Disease, Hypertension - Social History Does patient currently use any type of tobacco product: No Have you used tobacco products in the last 12 months: No Type of Tobacco Use: None Does any household member use tobacco: No Alcohol Use: None Drug Use: None - Medications Home Medications: No Known Drug Allergies Allergy (Verified 11/17/20 17:42) CONTINUE taking the following medications fluticasone propionate 2 spray INTRANASAL BID 11/17/20 [History] - Review of Systems Constitutional: Fever, Chills, Weakness Eyes: No Symptoms Reported ENT: No Symptoms Reported Respiratory: See HPI, Cough Cardiovascular: No Symptoms Reported Gastrointestinal: No Symptoms Reported Genitourinary: No Symptoms Reported Musculoskeletal: No Symptoms Reported Skin: No Symptoms Reported Neurological: Weakness - Physical Exam Vital Signs: Temperature 99.1 F Pulse Rate [Radial] 67 Pulse Rate 102 Respiratory Rate 20 Blood Pressure [Right Arm] 98/53 Blood Pressure [Left Arm] 99/63 Blood Pressure 106/57 O2 Sat by Pulse Oximetry 92 Oriented: Normal Eyes: Normal Ear: Normal Nose: Normal Throat: Normal Respiratory: Rhonchi Throughout Cardiovascular: Normal : Normal Auscultation: Bowel Sounds: Normal Palpation: Normal Tenderness: Normal Skin: Normal Musculoskeletal: Normal Psychiatric: Normal Mood Description: Calm Affect: Normal Speech Pattern: Aphasic - Assessment/Plan (1) Pneumonia Qualifiers: Pneumonia type: due to unspecified organism Laterality: unspecified laterality Lung location: unspecified part of lung Qualified Code(s): J18.9 - Pneumonia, unspecified organism Status: Acute Plan: ADMIT, SUPPLEMENTAL OXYGEN, NORMAL SALINE AT 125ML/HR, ZOSYN 3.375G IV TID, LEVAQUIN 500MG IV DAILY, ALBUTEROL NEB TX TID, PULMICORT NEB TIX BID, ROBITUSSIN AC 10ML PO Q6H, AND HIS HOME MEDICATIONS WERE RESUMED. (2) Hyponatremia Status: Acute (3) Acute dehydration Status: Acute (4) Fever Qualifiers: Fever type: unspecified Qualified Code(s): R50.9 - Fever, unspecified Status: Acute - Allergies Allergies/Adverse Reactions: Allergies Allergy/AdvReac Type Severity Reaction Status Date / Time No Known Drug Allergies Allergy Verified 11/17/20 17:42
[2020-11-18 13:49] LABS: CKMB % 1.2 % (<4); CREATINE KINASE 264 Units/L (39-308); CREATINE KINASE MB 3.2 ng/mL (0-4.0); TROPONIN I < 0.02 ng/mL (0-1.5)
[2020-11-18] MEDS: PROVENTIL NEB TX 0.083% 2.5MG/ 3ML NEB SCH ×2 (13:49→20:40)
[2020-11-18] MEDS: LEVAQUIN PREMIX IV 500 MG 500 MG/100 ML BAG IV SCH (14:28)
[2020-11-18] MEDS: ARICEPT TAB 10 MG PEG SCH (21:17)
[2020-11-19] MEDS: NS 1000 ML 1,000 ML IV SCH ×3 (05:08→21:06)
[2020-11-19] MEDS: PROVENTIL NEB TX 0.083% 2.5MG/ 3ML NEB SCH ×3 (05:30→20:25)
[2020-11-19] MEDS: ASTELIN NASAL SPRAY ENOSTRIL SCH ×3 (06:03→21:20)
[2020-11-19] MEDS: ZOSYN VIAL 3.375 GRAMS 3.375 G in NS 50 ML IV + SPIKE MINIBAG* 50 ML IV SCH ×3 (06:03→21:20)
[2020-11-19 06:13] LABS: BASOPHILS % (AUTO) 0.2 % (0.2-1.0); EOSINOPHILS % (AUTO) 0.4 % (0.9-2.9); HEMOGLOBIN 12.1 g/dL (13.5-18.0); LYMPHOCYTES # (AUTO) 1.1 X10^3/uL (1.3-2.9); LYMPHOCYTES % (AUTO) 12.4 % (21.0-51.0); MEAN CORPUSCULAR HEMOGLOBIN 31.5 pg (27.0-34.0); MEAN CORPUSCULAR HGB CONC 34.5 g/dL (33.0-35.0); MEAN CORPUSCULAR VOLUME 91.4 fL (80.0-100.0); MEAN PLATELET VOLUME 8.9 fL (7.4-11.0); MONOCYTES # (AUTO) 0.7 x10^3/uL (0.3-0.8); MONOCYTES % (AUTO) 8.4 % (0.0-13.0); NEUTROPHILS # (AUTO) 6.8 x10^3/uL (2.2-4.8); NEUTROPHILS % (AUTO) 78.6 % (42.0-75.0); PLATELET COUNT 103 X10^3/uL (150.0-450.0); RED BLOOD COUNT 3.83 X10^6/uL (4.7-6.0); RED CELL DISTRIBUTION WIDTH 13.4 % (11.6-16.5); WHITE BLOOD COUNT 8.6 X10^3/uL (3.6-10.0)
[2020-11-19 06:24] LABS: ALANINE AMINOTRANSFERASE 18 Units/L (12-78); ALBUMIN 2.6 g/dL (3.4-5.0); ALKALINE PHOSPHATASE 46 Units/L (46-116); ASPARTATE AMINO TRANSFERASE 33 Units/L (15-37); BLOOD UREA NITROGEN 16 mg/dL (7-18); CALCIUM 8.9 mg/dL (8.5-10.1); CARBON DIOXIDE 23.6 mmol/L (21-32); CHLORIDE 103 mmol/L (98-107); CREATININE 1.15 mg/dL (0.70-1.30); SODIUM 136 mmol/L (136-145); TOTAL PROTEIN 6.4 g/dL (6.4-8.2); eGFR NON BLACK RACES > 60 (>60)
[2020-11-19] MEDS: PULMICORT NEB TX 0.5 MG NEB SCH ×2 (08:15→20:25)
[2020-11-19] MEDS: PROSCAR PEG SCH (08:45)
[2020-11-19] MEDS: FLOMAX PO SCH ×2 (08:45→21:19)
[2020-11-19] MEDS: EFFEXOR XR 75 MG CAP 24-HR PO SCH (08:45)
[2020-11-19] MEDS: PriLOSEC PO SCH ×2 (08:45→21:19)
[2020-11-19] MEDS: SINGULAIR TAB 10 MG PEG SCH (08:45)
[2020-11-19] MEDS: GEODON PO SCH ×2 (08:45→21:19)
[2020-11-19] MEDS: ARTIFICIAL TEARS DROPS OP SCH ×2 (08:46→21:18)
[2020-11-19] MEDS: XANAX PEG SCH ×2 (08:46→21:20)
[2020-11-19] MEDS: COLACE SYRUP 100 MG UDC PEG SCH (08:46)
[2020-11-19] MEDS: NAMENDA TAB 10 MG PEG SCH ×2 (08:47→21:19)
[2020-11-19] MEDS: FLONASE NASAL SPRAY ENOSTRIL SCH ×2 (08:47→21:19)
[2020-11-19] MEDS: LOPRESSOR TAB 25 MG PEG SCH ×2 (08:48→21:19)
[2020-11-19] MEDS: LEVAQUIN PREMIX IV 500 MG 500 MG/100 ML BAG IV SCH (09:00)
[2020-11-19] MEDS: ELIQUIS NG SCH ×2 (09:00→21:18)
[2020-11-19] MEDS: LASIX PEG SCH ×2 (09:00→21:19)
[2020-11-19] MEDS: DEPAKENE PEG SCH ×2 (09:00→21:18)
--- NOTE | 2020-11-19 10:45 | PCM.PROG ---
Progress Note - Progress Note for Day of Date of Exam: 11/19/20 - Subjective Subjective: IS BEING TREATED FOR RIGHT SIDED PNEUMONIA, HYPONATREMIA, DEHYDRATION, AND FEVER. TODAY, HE IS ALERT AND ORIENTED, LYING IN BED ON MORNING ROUNDS. HE CONTINUES WITH A PRODUCTIVE COUGH THIS MORNING. HE IS CURRENTLY ON OXYGEN VIA NASAL CANNULA AT 2 LITERS/MIN. ON EXAMINATION, HEART IS REGULAR IN RATE AND RHYTHM. BILATERAL LUNGS ARE NOTED WITH SCATTERED RHONCHI THROUGHOUT. ABDOMEN IS ROUND, SOFT, AND NON-TENDER WITH NORMAL BOWEL SOUNDS NOTED IN ALL QUADRANTS. HIS VITALS THIS MORNING ARE: 99.2-78-20-96%-95/52. LABS WERE OBTAINED. ABNORMAL LAB VALUES INCLUDE THE FOLLOWING: RBC 3.83, HGB 12.1, HCT 35, PLT COUNT 103, GLUCOSE 56, TOTAL BILI 1.40, ALBUMIN 2.6. BLOOD AND SPUTUM CULTU RES ARE PENDING. A CHEST XRAY WAS OBTAINED AND REVEALED: NEW PATCHY RADIOPACITIES IN THE RIGHT UPPER LOBE. UNCHANGED RIGHT LOWER LOBE RADIOPACITIES. SHE IS CURRENTLY RECEIVING NORMAL SALINE AT 125ML/HR, ZOSYN 3.375G IV TID, LEVAQUIN 500MG IV DAILY, ALBUTEROL NEB TX TID, PULMICORT NEB TIX BID, ROBITUSSIN AC 10ML PO Q6H, AND HIS HOME MEDICATIONS WERE RESUMED. WE WILL CONTINUE WITH CURRENT PLAN OF CARE TODAY. OTHERWISE, WE PLAN TO FOLLOW UP WITH AM LABS AND CONTINUE TO MONITOR. TIME SPENT ON CLINICAL ASSESSMENT, REVIEWING LABS AND IMAGING, DECISION MAKING, AND DOCUMENTATION GREATER THAN 45 MINUTES. - Past Medical Family Social History Past Med/Fam/Surg Hx: No changes since H&P Allergies: Allergies No Known Drug Allergies Allergy (Verified 11/17/20 17:42) - Review of Systems ROS: No change since H&P - Vital Signs and I&O's Vital Signs: Temperature 99.2 F Pulse Rate [Radial] 78 Pulse Rate 74 Respiratory Rate 20 Blood Pressure [Right Arm] 95/52 Blood Pressure [Left Arm] 104/57 Blood Pressure 106/57 O2 Sat by Pulse Oximetry 96 Intake and Output: Intake & Output 11/16/20 11/17/20 11/18/20 11/19/20 11:59 11:59 11:59 11:59 Intake Total 270 / 270 3218 / 3218 Balance 270 / 270 3218 / 3218 - Physical Exam Oriented: Normal Eyes: Normal Ear: Normal Nose: Normal Throat: Normal Respiratory: Generalized, Diminished, Rhonchi Cardiovascular: Normal : Normal Auscultation: Bowel Sounds: Normal Palpation: Normal Tenderness: Normal Skin: Normal Musculoskeletal: Normal Psychiatric: Normal Mood Description: Calm Affect: Normal Speech Pattern: Aphasic - Laboratory and Diagnostics Result Diagrams: 11/19/20 05:19 11/19/20 05:19 Labs: 11/17/20 18:56 Blood Blood Culture - Preliminary 11/17/20 18:49 Blood Blood Culture - Preliminary Laboratory WBC 8.6 X10^3/uL (3.6-10.0) 11/19/20 05:19 RBC 3.83 X10^6/uL (4.7-6.0) L 11/19/20 05:19 Hgb 12.1 g/dL (13.5-18.0) L 11/19/20 05:19 Hct 35.0 % (42.0-54.0) L 11/19/20 05:19 MCV 91.4 fL (80.0-100.0) 11/19/20 05:19 MCH 31.5 pg (27.0-34.0) 11/19/20 05:19 MCHC 34.5 g/dL (33.0-35.0) 11/19/20 05:19 RDW 13.4 % (11.6-16.5) 11/19/20 05:19 Plt Count 103 X10^3/uL (150.0-450.0) L 11/19/20 05:19 MPV 8.9 fL (7.4-11.0) 11/19/20 05:19 Neut % (Auto) 78.6 % (42.0-75.0) H 11/19/20 05:19 Lymph % (Auto) 12.4 % (21.0-51.0) L 11/19/20 05:19 [place] % (Auto) 8.4 % (0.0-13.0) 11/19/20 05:19 Eos % (Auto) 0.4 % (0.9-2.9) L 11/19/20 05:19 Baso % (Auto) 0.2 % (0.2-1.0) 11/19/20 05:19 Neut # (Auto) 6.8 x10^3/uL (2.2-4.8) H 11/19/20 05:19 Lymph # (Auto) 1.1 X10^3/uL (1.3-2.9) L 11/19/20 05:19 [place] # (Auto) 0.7 x10^3/uL (0.3-0.8) 11/19/20 05:19 Eos # (Auto) 0.0 x10^3/uL (0.0-0.2) 11/19/20 05:19 Baso # (Auto) 0.0 X10^3/uL (0.0-0.1) 11/19/20 05:19 Absolute Nucleated RBC 0.0 /100WBC 11/19/20 05:19 PT 15.4 SECONDS (11.8-14.3) 11/18/20 05:17 INR Target Range - 11/18/20 05:17 INR 1.28 (0.8-1.3) 11/18/20 05:17 APTT 36.9 SECONDS (22.9-36.5) H 11/18/20 05:17 PTT Comment - 11/18/20 05:17 Sample Site Lrad 11/17/20 20:13 ABG pH 7.470 (7.35-7.45) H 11/17/20 20:13 ABG pCO2 36.0 mmHg (35.0-45.0) 11/17/20 20:13 ABG pO2 140.0 mmHg (80.0-100.0) H 11/17/20 20:13 ABG HCO3 26.2 mmol/L (22-26) H 11/17/20 20:13 ABG O2 Saturation 99.0 % (90-100) 11/17/20 20:13 ABG Base Excess 2.6 mmol/L (-2.0-2.0) H 11/17/20 20:13 Jeremie Test Pos 11/17/20 20:13 A-a Gradient 15.0 mmHg 11/17/20 20:13 FiO2 28.0 11/17/20 20:13 Blood Gas Comments Carmella well mts 11/17/20 20:13 Sodium 136 mmol/L (136-145) 11/19/20 05:19 Corrected Sodium TNP 11/19/20 05:19 Potassium 4.1 mmol/L (3.5-5.1) 11/19/20 05:19 Chloride 103 mmol/L (98-107) 11/19/20 05:19 Carbon Dioxide 23.6 mmol/L (21-32) 11/19/20 05:19 BUN 16 mg/dL (7-18) 11/19/20 05:19 Creatinine 1.15 mg/dL (0.70-1.30) 11/19/20 05:19 Est GFR (MDRD) Af Amer > 60 (>60) 11/19/20 05:19 Est GFR (MDRD) Non-Af > 60 (>60) 11/19/20 05:19 Glucose 56 mg/dL (65-99) L 11/19/20 05:19 Lactic Acid 1.0 mmol/L (0.4-2.0) 11/17/20 18:49 Calcium 8.9 mg/dL (8.5-10.1) 11/19/20 05:19 Corrected Calcium 10.0 mg/dL (8.5-10.1) 11/19/20 05:19 Magnesium 2.1 mg/dL (1.7-2.9) 11/18/20 05:17 Total Bilirubin 1.40 mg/dL (0.2-1.0) H 11/19/20 05:19 AST 33 Units/L (15-37) 11/19/20 05:19 ALT 18 Units/L (12-78) 11/19/20 05:19 Alkaline Phosphatase 46 Units/L (46-116) 11/19/20 05:19 Creatine Kinase 264 Units/L (39-308) 11/18/20 13:13 CK-MB (CK-2) 3.2 ng/mL (0-4.0) 11/18/20 13:13 CK/CKMB % Calc 1.2 % (<4) 11/18/20 13:13 Troponin I < 0.02 ng/mL (0-1.5) 11/18/20 13:13 Total Protein 6.4 g/dL (6.4-8.2) 11/19/20 05:19 Albumin 2.6 g/dL (3.4-5.0) L 11/19/20 05:19 Globulin 3.8 g/dL (2.5-4.5) 11/19/20 05:19 Albumin/Globulin Ratio 0.7 Ratio (1.1-2.1) L 11/19/20 05:19 Amylase 50 Units/L (25-115) 11/17/20 18:49 Lipase 73 Units/L (73-393) 11/17/20 18:49 Specimen Type Catherized urine 11/17/20 20:07 Urine Color Yellow (YELLOW) 11/17/20 20:07 Urine Appearance Clear (CLEAR) 11/17/20 20:07 Urine pH 8.0 (5.0 - 8.0) 11/17/20 20:07 Ur Specific [place] 1.015 (1.000-1.030) 11/17/20 20:07 Urine Protein Negative (NEGATIVE) 11/17/20 20:07 Urine Glucose (UA) Negative (NEGATIVE) 11/17/20 20:07 Urine Ketones Negative (NEGATIVE) 11/17/20 20:07 Urine Occult Blood Negative (NEGATIVE) 11/17/20 20:07 Urine Nitrite Negative (NEGATIVE) 11/17/20 20:07 Urine Bilirubin Negative (NEGATIVE) 11/17/20 20:07 Urine Urobilinogen 1+ (NORMAL) 11/17/20 20:07 Ur Leukocyte Esterase Negative (NEGATIVE) 11/17/20 20:07 Urine RBC None seen /HPF (0-3) 11/17/20 20:07 Urine WBC 3-5 /HPF (0-5) 11/17/20 20:07 Ur Squamous Epith Cells Rare /HPF (NEGATIVE) 11/17/20 20:07 Urine Bacteria Trace /HPF (NEGATIVE) 11/17/20 20:07 Ur Culture Indicated? No/not indicated 11/17/20 20:07 SARS-CoV-2 (PCR) Negative (NEGATIVE) 11/17/20 20:46 Influenza Type A (PCR) Negative (NEGATIVE) 11/17/20 20:46 Influenza Type B (PCR) Negative (NEGATIVE) 11/17/20 20:46 RSV (PCR) Negative (NEGATIVE) 11/17/20 20:46 - Plan (1) Pneumonia Status: Acute Qualifiers: Pneumonia type: due to unspecified organism Laterality: right Lung location: unspecified part of lung Qualified Code(s): J18.9 - Pneumonia, unspecified organism Plan: ZOSYN 3.375G IV TID, LEVAQUIN 500MG IV DAILY, ALBUTEROL NEB TX TID, PULMICORT NEB TIX BID, ROBITUSSIN AC 10ML PO Q6H, AND HIS HOME MEDICATIONS WERE RESUMED. (2) Hyponatremia Status: Resolved (3) Acute dehydration Status: Acute (4) Fever Status: Acute Qualifiers: Fever type: unspecified Qualified Code(s): R50.9 - Fever, unspecified
--- NOTE | 2020-11-19 12:34 | RAD ---
HISTORYSOB HTN, DM, CVA, COPD GBSTUDYCHEST, 1 [id number] trachea is midline. Normal heart size. There is a persistent right lower lobe patchy infiltrate. No evidence of pleural effusions or focal pneumothorax. The most superior aspect of the right apex was not included in the field of view. In comparison with prior, there are new radiopacities in the right upper lobe.IMPRESSIONNew patchy radiopacities in the right upper lobe. Unchanged right lower lobe radiopacities.Electronically signed by: Ruthann Francisco (Nov 19, 2020 08:15:36)
[2020-11-19] MEDS: ARICEPT TAB 10 MG PEG SCH (21:18)
[2020-11-19] MEDS: THIORIDAZINE 50 MG PEG SCH (22:26)
[2020-11-20] MEDS: NS 1000 ML 1,000 ML IV SCH ×3 (03:54→22:04)
[2020-11-20] MEDS: ASTELIN NASAL SPRAY ENOSTRIL SCH ×3 (05:01→21:10)
[2020-11-20] MEDS: ZOSYN VIAL 3.375 GRAMS 3.375 G in NS 50 ML IV + SPIKE MINIBAG* 50 ML IV SCH ×3 (05:01→21:09)
[2020-11-20] MEDS: PROVENTIL NEB TX 0.083% 2.5MG/ 3ML NEB SCH ×3 (05:05→21:12)
[2020-11-20 06:17] LABS: BASOPHILS % (AUTO) 0.2 % (0.2-1.0); EOSINOPHILS # (AUTO) 0.1 x10^3/uL (0.0-0.2); EOSINOPHILS % (AUTO) 2.5 % (0.9-2.9); HEMOGLOBIN 11.5 g/dL (13.5-18.0); LYMPHOCYTES # (AUTO) 1.1 X10^3/uL (1.3-2.9); LYMPHOCYTES % (AUTO) 23.2 % (21.0-51.0); MEAN CORPUSCULAR HEMOGLOBIN 31.8 pg (27.0-34.0); MEAN CORPUSCULAR HGB CONC 34.9 g/dL (33.0-35.0); MEAN CORPUSCULAR VOLUME 91.2 fL (80.0-100.0); MEAN PLATELET VOLUME 8.1 fL (7.4-11.0); MONOCYTES # (AUTO) 0.3 x10^3/uL (0.3-0.8); MONOCYTES % (AUTO) 6.2 % (0.0-13.0); NEUTROPHILS # (AUTO) 3.2 x10^3/uL (2.2-4.8); NEUTROPHILS % (AUTO) 67.9 % (42.0-75.0); PLATELET COUNT 107 X10^3/uL (150.0-450.0); RED BLOOD COUNT 3.62 X10^6/uL (4.7-6.0); RED CELL DISTRIBUTION WIDTH 13.3 % (11.6-16.5); WHITE BLOOD COUNT 4.8 X10^3/uL (3.6-10.0)
[2020-11-20 06:32] LABS: ALANINE AMINOTRANSFERASE 23 Units/L (12-78); ALBUMIN 2.5 g/dL (3.4-5.0); ALKALINE PHOSPHATASE 41 Units/L (46-116); ASPARTATE AMINO TRANSFERASE 32 Units/L (15-37); BLOOD UREA NITROGEN 14 mg/dL (7-18); CALCIUM 9.1 mg/dL (8.5-10.1); CARBON DIOXIDE 25.8 mmol/L (21-32); CHLORIDE 106 mmol/L (98-107); COR CA(FOR HYPOALB) 10.3 mg/dL (8.5-10.1); CREATININE 0.95 mg/dL (0.70-1.30); SODIUM 138 mmol/L (136-145); TOTAL PROTEIN 6.5 g/dL (6.4-8.2); eGFR NON BLACK RACES > 60 (>60)
--- NOTE | 2020-11-20 07:37 | RAD ---
HISTORYSOBSTUDYCHEST, 1 [id number] cardiomediastinal silhouette is stable. Worsening right-sided airspace opacities. The bony thorax appears intact.IMPRESSIONWorsening right-sided airspace opacities. Recommend follow-up to resolution.Electronically signed by: CALLUM MARTINEZ (Nov 20, 2020 07:35:29)
[2020-11-20] MEDS: PULMICORT NEB TX 0.5 MG NEB SCH ×2 (09:35→21:12)
[2020-11-20] MEDS: COLACE SYRUP 100 MG UDC PEG SCH (09:40)
[2020-11-20] MEDS: ARTIFICIAL TEARS DROPS OP SCH ×2 (09:40→21:12)
[2020-11-20] MEDS: DEPAKENE PEG SCH ×2 (09:41→21:25)
[2020-11-20] MEDS: FLONASE NASAL SPRAY ENOSTRIL SCH ×2 (09:41→21:11)
[2020-11-20] MEDS: ELIQUIS NG SCH ×2 (09:42→21:25)
[2020-11-20] MEDS: THIORIDAZINE 50 MG PEG SCH (09:42)
[2020-11-20] MEDS: LASIX PEG SCH ×2 (09:43→21:25)
[2020-11-20] MEDS: EFFEXOR XR 75 MG CAP 24-HR PO SCH (09:43)
[2020-11-20] MEDS: LOPRESSOR TAB 25 MG PEG SCH ×2 (09:44→21:36)
[2020-11-20] MEDS: GEODON PO SCH ×2 (09:44→21:25)
[2020-11-20] MEDS: LEVAQUIN PREMIX IV 500 MG 500 MG/100 ML BAG IV SCH (09:44)
[2020-11-20] MEDS: FLOMAX PO SCH ×2 (09:44→21:25)
[2020-11-20] MEDS: NAMENDA TAB 10 MG PEG SCH ×2 (09:45→21:25)
[2020-11-20] MEDS: PriLOSEC PO SCH ×2 (09:45→21:25)
[2020-11-20] MEDS: XANAX PEG SCH ×2 (09:46→21:25)
[2020-11-20] MEDS: SINGULAIR TAB 10 MG PEG SCH (09:46)
[2020-11-20] MEDS: PROSCAR PEG SCH (09:46)
--- NOTE | 2020-11-20 13:05 | PCM.PROG ---
Progress Note - Progress Note for Day of Date of Exam: 11/20/20 - Subjective Subjective: IS BEING TREATED FOR RIGHT SIDED PNEUMONIA, HYPONATREMIA, DEHYDRATION, AND FEVER. TODAY, HE IS ALERT AND ORIENTED, LYING IN BED ON MORNING ROUNDS. HE CONTINUES WITH A PRODUCTIVE COUGH THIS MORNING. HE IS CURRENTLY ON OXYGEN VIA NASAL CANNULA AT 2 LITERS/MIN. ON EXAMINATION, HEART IS REGULAR IN RATE AND RHYTHM. BILATERAL LUNGS ARE NOTED WITH SCATTERED RHONCHI THROUGHOUT. ABDOMEN IS ROUND, SOFT, AND NON-TENDER WITH NORMAL BOWEL SOUNDS NOTED IN ALL QUADRANTS. HIS VITALS THIS MORNING ARE: 97.1-68-20-99%-103/58. LABS WERE OBTAINED. ABNORMAL LAB VALUES INCLUDE THE FOLLOWING: RBC 3.62, HGB 11.5, HCT 33.0, PLT COUNT 107, POTASSIUM 3.4, ALK PHOS 41, ALBUMIN 2.5. BLOOD AND SPUTUM CULTURES ARE PENDING. A CHEST XRAY WAS OBTAINED AND REVEALED: Worsening right- sided airspace opacities. SHE IS CURRENTLY RECEIVING NORMAL SALINE AT 125ML/HR, ZOSYN 3.375G IV TID, LEVAQUIN 500MG IV DAILY, ALBUTEROL NEB TX TID, PULMICORT NEB TIX BID, ROBITUSSIN AC 10ML PO Q6H, AND HIS HOME MEDICATIONS WERE RESUMED. WE WILL CONTINUE WITH CURRENT PLAN OF CARE TODAY. OTHERWISE, WE PLAN TO FOLLOW UP WITH AM LABS AND CONTINUE TO MONITOR. TIME SPENT ON CLINICAL ASSESSMENT, REVIEWING LABS AND IMAGING, DECISION MAKING, AND DOCUMENTATION GREATER THAN 45 MINUTES. - Past Medical Family Social History Past Med/Fam/Surg Hx: No changes since H&P Allergies: Allergies No Known Drug Allergies Allergy (Verified 11/17/20 17:42) - Review of Systems ROS: No change since H&P - Vital Signs and I&O's Vital Signs: Temperature 98.1 F Pulse Rate [Radial] 58 Pulse Rate 59 Respiratory Rate 18 Blood Pressure [Right Arm] 103/58 Blood Pressure [Left Arm] 98/64 Blood Pressure 106/57 O2 Sat by Pulse Oximetry 96 Intake and Output: Intake & Output 11/18/20 11/19/20 11/20/20 11/21/20 11:59 11:59 11:59 11:59 Intake Total 270 / 270 3218 / 3218 4474 / 4474 Balance 270 / 270 3218 / 3218 4474 / 4474 - Physical Exam Oriented: Normal Eyes: Normal Ear: Normal Nose: Normal Throat: Normal Respiratory: Generalized, Diminished, Rhonchi Cardiovascular: Normal : Normal Auscultation: Bowel Sounds: Normal Palpation: Normal Tenderness: Normal Skin: Normal Musculoskeletal: Normal Psychiatric: Normal Mood Description: Calm Affect: Normal Speech Pattern: Aphasic - Laboratory and Diagnostics Result Diagrams: 11/20/20 06:00 11/20/20 06:00 Labs: 11/18/20 11:14 Blood Blood Culture - Preliminary 11/18/20 11:05 Blood Blood Culture - Preliminary 11/17/20 18:56 Blood Blood Culture - Preliminary 11/17/20 18:49 Blood Blood Culture - Preliminary Laboratory WBC 4.8 X10^3/uL (3.6-10.0) 11/20/20 06:00 RBC 3.62 X10^6/uL (4.7-6.0) L 11/20/20 06:00 Hgb 11.5 g/dL (13.5-18.0) L 11/20/20 06:00 Hct 33.0 % (42.0-54.0) L 11/20/20 06:00 MCV 91.2 fL (80.0-100.0) 11/20/20 06:00 MCH 31.8 pg (27.0-34.0) 11/20/20 06:00 MCHC 34.9 g/dL (33.0-35.0) 11/20/20 06:00 RDW 13.3 % (11.6-16.5) 11/20/20 06:00 Plt Count 107 X10^3/uL (150.0-450.0) L 11/20/20 06:00 MPV 8.1 fL (7.4-11.0) 11/20/20 06:00 Neut % (Auto) 67.9 % (42.0-75.0) 11/20/20 06:00 Lymph % (Auto) 23.2 % (21.0-51.0) 11/20/20 06:00 Sandoval % (Auto) 6.2 % (0.0-13.0) 11/20/20 06:00 Eos % (Auto) 2.5 % (0.9-2.9) 11/20/20 06:00 Baso % (Auto) 0.2 % (0.2-1.0) 11/20/20 06:00 Neut # (Auto) 3.2 x10^3/uL (2.2-4.8) 11/20/20 06:00 Lymph # (Auto) 1.1 X10^3/uL (1.3-2.9) L 11/20/20 06:00 Sandoval # (Auto) 0.3 x10^3/uL (0.3-0.8) 11/20/20 06:00 Eos # (Auto) 0.1 x10^3/uL (0.0-0.2) 11/20/20 06:00 Baso # (Auto) 0.0 X10^3/uL (0.0-0.1) 11/20/20 06:00 Absolute Nucleated RBC 0.0 /100WBC 11/20/20 06:00 PT 15.4 SECONDS (11.8-14.3) 11/18/20 05:17 INR Target Range - 11/18/20 05:17 INR 1.28 (0.8-1.3) 11/18/20 05:17 APTT 36.9 SECONDS (22.9-36.5) H 11/18/20 05:17 PTT Comment - 11/18/20 05:17 Sample Site Lrad 11/17/20 20:13 ABG pH 7.470 (7.35-7.45) H 11/17/20 20:13 ABG pCO2 36.0 mmHg (35.0-45.0) 11/17/20 20:13 ABG pO2 140.0 mmHg (80.0-100.0) H 11/17/20 20:13 ABG HCO3 26.2 mmol/L (22-26) H 11/17/20 20:13 ABG O2 Saturation 99.0 % (90-100) 11/17/20 20:13 ABG Base Excess 2.6 mmol/L (-2.0-2.0) H 11/17/20 20:13 Ejremie Test Pos 11/17/20 20:13 A-a Gradient 15.0 mmHg 11/17/20 20:13 FiO2 28.0 11/17/20 20:13 Blood Gas Comments Carmella well mts 11/17/20 20:13 Sodium 138 mmol/L (136-145) 11/20/20 06:00 Corrected Sodium TNP 11/20/20 06:00 Potassium 3.4 mmol/L (3.5-5.1) L 11/20/20 06:00 Chloride 106 mmol/L (98-107) 11/20/20 06:00 Carbon Dioxide 25.8 mmol/L (21-32) 11/20/20 06:00 BUN 14 mg/dL (7-18) 11/20/20 06:00 Creatinine 0.95 mg/dL (0.70-1.30) 11/20/20 06:00 Est GFR (MDRD) Af Amer > 60 (>60) 11/20/20 06:00 Est GFR (MDRD) Non-Af > 60 (>60) 11/20/20 06:00 Glucose 81 mg/dL (65-99) 11/20/20 06:00 POC Glucose (mg/dL) 96 mg/dL (65-99) 11/20/20 12:26 Lactic Acid 1.0 mmol/L (0.4-2.0) 11/17/20 18:49 Calcium 9.1 mg/dL (8.5-10.1) 11/20/20 06:00 Corrected Calcium 10.3 mg/dL (8.5-10.1) H 11/20/20 06:00 Magnesium 1.9 mg/dL (1.7-2.9) 11/20/20 06:00 Total Bilirubin 0.80 mg/dL (0.2-1.0) 11/20/20 06:00 AST 32 Units/L (15-37) 11/20/20 06:00 ALT 23 Units/L (12-78) 11/20/20 06:00 Alkaline Phosphatase 41 Units/L (46-116) L 11/20/20 06:00 Creatine Kinase 264 Units/L (39-308) 11/18/20 13:13 CK-MB (CK-2) 3.2 ng/mL (0-4.0) 11/18/20 13:13 CK/CKMB % Calc 1.2 % (<4) 11/18/20 13:13 Troponin I < 0.02 ng/mL (0-1.5) 11/18/20 13:13 Total Protein 6.5 g/dL (6.4-8.2) 11/20/20 06:00 Albumin 2.5 g/dL (3.4-5.0) L 11/20/20 06:00 Globulin 4.0 g/dL (2.5-4.5) 11/20/20 06:00 Albumin/Globulin Ratio 0.6 Ratio (1.1-2.1) L 11/20/20 06:00 Amylase 50 Units/L (25-115) 11/17/20 18:49 Lipase 73 Units/L (73-393) 11/17/20 18:49 Specimen Type Catherized urine 11/17/20 20:07 Urine Color Yellow (YELLOW) 11/17/20 20:07 Urine Appearance Clear (CLEAR) 11/17/20 20:07 Urine pH 8.0 (5.0 - 8.0) 11/17/20 20:07 Ur Specific [place] 1.015 (1.000-1.030) 11/17/20 20:07 Urine Protein Negative (NEGATIVE) 11/17/20 20:07 Urine Glucose (UA) Negative (NEGATIVE) 11/17/20 20:07 Urine Ketones Negative (NEGATIVE) 11/17/20 20:07 Urine Occult Blood Negative (NEGATIVE) 11/17/20 20:07 Urine Nitrite Negative (NEGATIVE) 11/17/20 20:07 Urine Bilirubin Negative (NEGATIVE) 11/17/20 20:07 Urine Urobilinogen 1+ (NORMAL) 11/17/20 20:07 Ur Leukocyte Esterase Negative (NEGATIVE) 11/17/20 20:07 Urine RBC None seen /HPF (0-3) 11/17/20 20:07 Urine WBC 3-5 /HPF (0-5) 11/17/20 20:07 Ur Squamous Epith Cells Rare /HPF (NEGATIVE) 11/17/20 20:07 Urine Bacteria Trace /HPF (NEGATIVE) 11/17/20 20:07 Ur Culture Indicated? No/not indicated 11/17/20 20:07 SARS-CoV-2 (PCR) Negative (NEGATIVE) 11/17/20 20:46 Influenza Type A (PCR) Negative (NEGATIVE) 11/17/20 20:46 Influenza Type B (PCR) Negative (NEGATIVE) 11/17/20 20:46 RSV (PCR) Negative (NEGATIVE) 11/17/20 20:46 - Plan (1) Pneumonia Status: Acute Qualifiers: Pneumonia type: due to unspecified organism Laterality: right Lung location: unspecified part of lung Qualified Code(s): J18.9 - Pneumonia, unspecified organism Plan: ZOSYN 3.375G IV TID, LEVAQUIN 500MG IV DAILY, ALBUTEROL NEB TX TID, PULMI GENNARO NEB TIX BID, ROBITUSSIN AC 10ML PO Q6H, AND HIS HOME MEDICATIONS WERE RESUMED. (2) Hyponatremia Status: Resolved (3) Acute dehydration Status: Acute (4) Fever Status: Acute Qualifiers: Fever type: unspecified Qualified Code(s): R50.9 - Fever, unspecified
[2020-11-20] MEDS: ARICEPT TAB 10 MG PEG SCH (21:25)
[2020-11-21] MEDS: NS 1000 ML 1,000 ML IV SCH ×2 (04:43→15:00)
[2020-11-21] MEDS: ASTELIN NASAL SPRAY ENOSTRIL SCH ×3 (05:00→21:13)
[2020-11-21] MEDS: ZOSYN VIAL 3.375 GRAMS 3.375 G in NS 50 ML IV + SPIKE MINIBAG* 50 ML IV SCH ×3 (05:00→21:13)
[2020-11-21] MEDS: PROVENTIL NEB TX 0.083% 2.5MG/ 3ML NEB SCH ×3 (05:57→21:51)
--- NOTE | 2020-11-21 06:08 | RAD ---
HISTORYPneumonia SOBSTUDYPortable AP [id number]/01/2021FINDINGSHeart size remains normal. The left lung is essentially clear. Mild infiltrate is similar/stable in the right lower lung. No additional consolidation, pneumothorax or pleural fluid.IMPRESSIONNo change since 1 day earlier.Electronically signed by: FELIPA GOMEZ (Nov 21, 2020 06:05:48)
[2020-11-21 06:09] LABS: BASOPHILS % (AUTO) 0.5 % (0.2-1.0); EOSINOPHILS # (AUTO) 0.2 x10^3/uL (0.0-0.2); HEMATOCRIT 30.5 % (42.0-54.0); HEMOGLOBIN 10.6 g/dL (13.5-18.0); LYMPHOCYTES # (AUTO) 0.9 X10^3/uL (1.3-2.9); LYMPHOCYTES % (AUTO) 27.4 % (21.0-51.0); MEAN CORPUSCULAR HEMOGLOBIN 31.8 pg (27.0-34.0); MEAN CORPUSCULAR HGB CONC 34.8 g/dL (33.0-35.0); MEAN CORPUSCULAR VOLUME 91.5 fL (80.0-100.0); MEAN PLATELET VOLUME 8.1 fL (7.4-11.0); MONOCYTES # (AUTO) 0.2 x10^3/uL (0.3-0.8); MONOCYTES % (AUTO) 6.3 % (0.0-13.0); NEUTROPHILS % (AUTO) 60.8 % (42.0-75.0); PLATELET COUNT 109 X10^3/uL (150.0-450.0); RED BLOOD COUNT 3.33 X10^6/uL (4.7-6.0); RED CELL DISTRIBUTION WIDTH 13.7 % (11.6-16.5); WHITE BLOOD COUNT 3.2 X10^3/uL (3.6-10.0)
[2020-11-21 06:32] LABS: ALANINE AMINOTRANSFERASE 21 Units/L (12-78); ALBUMIN 2.2 g/dL (3.4-5.0); ALKALINE PHOSPHATASE 38 Units/L (46-116); ASPARTATE AMINO TRANSFERASE 22 Units/L (15-37); BLOOD UREA NITROGEN 12 mg/dL (7-18); CALCIUM 8.9 mg/dL (8.5-10.1); CARBON DIOXIDE 27.8 mmol/L (21-32); CHLORIDE 108 mmol/L (98-107); COR CA(FOR HYPOALB) 10.3 mg/dL (8.5-10.1); CREATININE 0.92 mg/dL (0.70-1.30); SODIUM 142 mmol/L (136-145); TOTAL PROTEIN 5.9 g/dL (6.4-8.2); eGFR NON BLACK RACES > 60 (>60)
[2020-11-21] MEDS ORDERED: K-DUR TAB 20 MEQ PO PRN (07:33)
[2020-11-21] MEDS ORDERED: POTASSIUM CHL 60 MEQ/NS 0.45% 500 ML IV PRN (07:33)
[2020-11-21] MEDS ORDERED: MICRO K EXTEN CAP 10 MEQ PO PRN (07:33)
[2020-11-21] MEDS ORDERED: KLOR-CON PO PRN (07:33)
[2020-11-21] MEDS ORDERED: MAGNESIUM SULFATE 1 GRAM/100 mL PREMIX 1 GM/100 ML BAG IV PRN (07:33)
[2020-11-21] MEDS ORDERED: POTASSIUM CHLORIDE LIQ 20 MEQ UDC PO PRN (07:33)
[2020-11-21] MEDS ORDERED: K-RIDER 10 MEQ/NS 100 ML 10 MEQ/100 ML BAG IV PRN (07:33)
[2020-11-21] MEDS ORDERED: POTASSIUM CHL 40 MEQ/NS 0.45% 500 ML IV PRN (07:33)
[2020-11-21] MEDS: LASIX PEG SCH ×2 (08:57→21:12)
[2020-11-21] MEDS: PriLOSEC PO SCH ×2 (08:58→21:13)
[2020-11-21] MEDS: FLOMAX PO SCH ×2 (08:58→21:12)
[2020-11-21] MEDS: GEODON PO SCH ×2 (08:58→21:12)
[2020-11-21] MEDS: ELIQUIS NG SCH ×2 (08:58→21:12)
[2020-11-21] MEDS: SINGULAIR TAB 10 MG PEG SCH (08:58)
[2020-11-21] MEDS: EFFEXOR XR 75 MG CAP 24-HR PO SCH (08:59)
[2020-11-21] MEDS: COLACE SYRUP 100 MG UDC PEG SCH (08:59)
[2020-11-21] MEDS: LEVAQUIN PREMIX IV 500 MG 500 MG/100 ML BAG IV SCH (08:59)
[2020-11-21] MEDS: XANAX PEG SCH ×2 (08:59→21:13)
[2020-11-21] MEDS: FLONASE NASAL SPRAY ENOSTRIL SCH ×2 (09:04→21:12)
[2020-11-21] MEDS: DEPAKENE PEG SCH ×2 (09:04→21:12)
[2020-11-21] MEDS: THIORIDAZINE 50 MG PEG SCH (09:04)
[2020-11-21] MEDS: PROSCAR PEG SCH (09:04)
[2020-11-21] MEDS: LOPRESSOR TAB 25 MG PEG SCH ×2 (09:04→21:12)
[2020-11-21] MEDS: NAMENDA TAB 10 MG PEG SCH ×2 (09:04→21:13)
[2020-11-21] MEDS: ARTIFICIAL TEARS DROPS OP SCH ×2 (09:04→21:11)
[2020-11-21] MEDS: PULMICORT NEB TX 0.5 MG NEB SCH ×2 (09:21→21:51)
[2020-11-21] MEDS: ARICEPT TAB 10 MG PEG SCH (21:11)
[2020-11-22] MEDS: NS 1000 ML 1,000 ML IV SCH ×4 (00:30→11:08)
[2020-11-22] MEDS: ASTELIN NASAL SPRAY ENOSTRIL SCH (05:25)
[2020-11-22] MEDS: ZOSYN VIAL 3.375 GRAMS 3.375 G in NS 50 ML IV + SPIKE MINIBAG* 50 ML IV SCH (05:25)
[2020-11-22 06:08] LABS: BASOPHILS % (AUTO) 0.4 % (0.2-1.0); EOSINOPHILS # (AUTO) 0.1 x10^3/uL (0.0-0.2); EOSINOPHILS % (AUTO) 3.6 % (0.9-2.9); HEMATOCRIT 28.7 % (42.0-54.0); HEMOGLOBIN 10.1 g/dL (13.5-18.0); LYMPHOCYTES % (AUTO) 30.1 % (21.0-51.0); MEAN CORPUSCULAR HEMOGLOBIN 31.9 pg (27.0-34.0); MEAN CORPUSCULAR HGB CONC 35.2 g/dL (33.0-35.0); MEAN CORPUSCULAR VOLUME 90.8 fL (80.0-100.0); MEAN PLATELET VOLUME 7.8 fL (7.4-11.0); MONOCYTES # (AUTO) 0.3 x10^3/uL (0.3-0.8); MONOCYTES % (AUTO) 8.2 % (0.0-13.0); NEUTROPHILS # (AUTO) 1.9 x10^3/uL (2.2-4.8); NEUTROPHILS % (AUTO) 57.7 % (42.0-75.0); PLATELET COUNT 119 X10^3/uL (150.0-450.0); RED BLOOD COUNT 3.17 X10^6/uL (4.7-6.0); RED CELL DISTRIBUTION WIDTH 13.2 % (11.6-16.5); WHITE BLOOD COUNT 3.3 X10^3/uL (3.6-10.0)
[2020-11-22 06:23] LABS: ALANINE AMINOTRANSFERASE 19 Units/L (12-78); ALBUMIN 2.1 g/dL (3.4-5.0); ALKALINE PHOSPHATASE 37 Units/L (46-116); ASPARTATE AMINO TRANSFERASE 18 Units/L (15-37); BLOOD UREA NITROGEN 12 mg/dL (7-18); CALCIUM 8.5 mg/dL (8.5-10.1); CARBON DIOXIDE 26.6 mmol/L (21-32); CHLORIDE 106 mmol/L (98-107); CREATININE 0.82 mg/dL (0.70-1.30); SODIUM 139 mmol/L (136-145); TOTAL PROTEIN 5.8 g/dL (6.4-8.2); eGFR NON BLACK RACES > 60 (>60)
[2020-11-22] MEDS: PROVENTIL NEB TX 0.083% 2.5MG/ 3ML NEB SCH (06:23)
--- NOTE | 2020-11-22 06:30 | RAD ---
HISTORYMulti lobed pneumoniaSTUDYAP chestCOMPARISONOctober 2020FINDINGSHeart size normal with essentially clear left lung. Slight improvement in right lower lobe infiltrate. Residual interstitial increase with no new consolidation. Pleural spaces are well defined.IMPRESSIONInterval improvement in the localized right lower lobe infiltrate/pneumonia.Electronically signed by: FELIPA GOMEZ (Nov 22, 2020 06:27:56)
[2020-11-22] MEDS: EFFEXOR XR 75 MG CAP 24-HR PO SCH (09:24)
[2020-11-22] MEDS: DEPAKENE PEG SCH (09:24)
[2020-11-22] MEDS: COLACE SYRUP 100 MG UDC PEG SCH (09:24)
[2020-11-22] MEDS: ARTIFICIAL TEARS DROPS OP SCH (09:24)
[2020-11-22] MEDS: LASIX PEG SCH (09:25)
[2020-11-22] MEDS: GEODON PO SCH (09:25)
[2020-11-22] MEDS: FLONASE NASAL SPRAY ENOSTRIL SCH (09:25)
[2020-11-22] MEDS: ELIQUIS NG SCH (09:25)
[2020-11-22] MEDS: FLOMAX PO SCH (09:25)
[2020-11-22] MEDS: PriLOSEC PO SCH (09:26)
[2020-11-22] MEDS: XANAX PEG SCH (09:26)
[2020-11-22] MEDS: SINGULAIR TAB 10 MG PEG SCH (09:26)
[2020-11-22] MEDS: NAMENDA TAB 10 MG PEG SCH (09:26)
[2020-11-22] MEDS: LOPRESSOR TAB 25 MG PEG SCH (09:26)
[2020-11-22] MEDS: PROSCAR PEG SCH (09:26)
[2020-11-22] MEDS: LEVAQUIN PREMIX IV 500 MG 500 MG/100 ML BAG IV SCH (09:26)
[2020-11-22] MEDS: PULMICORT NEB TX 0.5 MG NEB SCH (09:30)
[2020-11-22 10:20] VITALS: BMI 25.7
[2020-11-22] MEDS: THIORIDAZINE 50 MG PEG SCH (11:08)
[2020-11-22 13:11] VITALS: BP 104/55
== END 2020-11-22 13:30 | DRG 194 ==
LOC: ER 17:41 → MED/SURG 17:41
PROVIDERS: ADMIT Internal Medicine; ATTEND Internal Medicine
DX: K21.9 Gastro-esophageal reflux disease without esophagitis; E78.2 Mixed hyperlipidemia; J18.8 Other pneumonia, unspecified organism; R26.89 Other abnormalities of gait and mobility; E87.1 Hypo-osmolality and hyponatremia; J44.9 Chronic obstructive pulmonary disease, unspecified; I10 Essential (primary) hypertension; E86.0 Dehydration; E11.65 Type 2 diabetes mellitus with hyperglycemia; R50.9 Fever, unspecified; Z20.822 Contact with and (suspected) exposure to COVID-19

== ENCOUNTER 2021-01-25 16:40 | Observation (INO) ==
[2021-01-25] MEDS ORDERED: PULMICORT NEB TX 0.5 MG NEB ONE (19:58)
[2021-01-25] MEDS: PULMICORT NEB TX 0.5 MG NEB SCH (21:27)
[2021-01-25] MEDS ORDERED: TUSSIONEX PENNKINETIC SUSP PO PRN (21:49)
[2021-01-25] MEDS ORDERED: XOPENEX 1.25 MG/3 ML NEBULE NEB SCH (21:49)
[2021-01-25] MEDS ORDERED: PULMICORT NEB TX 0.5 MG NEB SCH (21:49)
[2021-01-25 22:37] LABS: BASOPHILS # (AUTO) 0.1 X10^3/uL (0.0-0.1); EOSINOPHILS # (AUTO) 0.2 x10^3/uL (0.0-0.2); EOSINOPHILS % (AUTO) 3.1 % (0.9-2.9); HEMATOCRIT 35.7 % (42.0-54.0); HEMOGLOBIN 12.2 g/dL (13.5-18.0); LYMPHOCYTES # (AUTO) 1.8 X10^3/uL (1.3-2.9); LYMPHOCYTES % (AUTO) 30.2 % (21.0-51.0); MEAN CORPUSCULAR HEMOGLOBIN 30.8 pg (27.0-34.0); MEAN CORPUSCULAR VOLUME 90.5 fL (80.0-100.0); MEAN PLATELET VOLUME 7.6 fL (7.4-11.0); MONOCYTES # (AUTO) 0.6 x10^3/uL (0.3-0.8); MONOCYTES % (AUTO) 9.9 % (0.0-13.0); NEUTROPHILS # (AUTO) 3.4 x10^3/uL (2.2-4.8); NEUTROPHILS % (AUTO) 55.8 % (42.0-75.0); PLATELET COUNT 186 X10^3/uL (150.0-450.0); RED BLOOD COUNT 3.95 X10^6/uL (4.7-6.0); RED CELL DISTRIBUTION WIDTH 13.5 % (11.6-16.5); WHITE BLOOD COUNT 6.1 X10^3/uL (3.6-10.0)
[2021-01-25 22:48] LABS: ALANINE AMINOTRANSFERASE 14 Units/L (12-78); ALBUMIN 2.8 g/dL (3.4-5.0); ALKALINE PHOSPHATASE 55 Units/L (46-116); ASPARTATE AMINO TRANSFERASE 10 Units/L (15-37); BLOOD UREA NITROGEN 28 mg/dL (7-18); CALCIUM 9.4 mg/dL (8.5-10.1); CARBON DIOXIDE 29.1 mmol/L (21-32); CHLORIDE 103 mmol/L (98-107); COR CA(FOR HYPOALB) 10.4 mg/dL (8.5-10.1); CREATININE 1.24 mg/dL (0.70-1.30); SODIUM 142 mmol/L (136-145); eGFR NON BLACK RACES > 60 (>60)
[2021-01-25] MEDS ORDERED: NS 1/2 1,000 ML IV 1,000 ML IV ONE (22:49)
[2021-01-25] MEDS: NS 1/2 1,000 ML IV 1,000 ML IV SCH (23:35)
[2021-01-25] MEDS: ROBITUSSIN DM PO SCH (23:36)
[2021-01-25] MEDS: VSL#3 PO SCH (23:37)
[2021-01-25 23:53] VITALS: BMI 23.9
[2021-01-26] MEDS: LEVAQUIN PREMIX IV 500 MG 500 MG/100 ML BAG IV SCH ×2 (00:12→20:57)
[2021-01-26] MEDS: XOPENEX 1.25 MG/3 ML NEBULE NEB SCH ×4 (00:51→17:55)
[2021-01-26 06:12] LABS: BASOPHILS % (AUTO) 0.3 % (0.2-1.0); EOSINOPHILS # (AUTO) 0.2 x10^3/uL (0.0-0.2); EOSINOPHILS % (AUTO) 3.9 % (0.9-2.9); HEMATOCRIT 35.1 % (42.0-54.0); LYMPHOCYTES # (AUTO) 1.2 X10^3/uL (1.3-2.9); LYMPHOCYTES % (AUTO) 24.8 % (21.0-51.0); MEAN CORPUSCULAR HEMOGLOBIN 30.9 pg (27.0-34.0); MEAN CORPUSCULAR HGB CONC 34.3 g/dL (33.0-35.0); MEAN CORPUSCULAR VOLUME 90.3 fL (80.0-100.0); MEAN PLATELET VOLUME 7.6 fL (7.4-11.0); MONOCYTES # (AUTO) 0.4 x10^3/uL (0.3-0.8); MONOCYTES % (AUTO) 8.4 % (0.0-13.0); NEUTROPHILS # (AUTO) 3.1 x10^3/uL (2.2-4.8); NEUTROPHILS % (AUTO) 62.6 % (42.0-75.0); PLATELET COUNT 172 X10^3/uL (150.0-450.0); RED BLOOD COUNT 3.88 X10^6/uL (4.7-6.0); RED CELL DISTRIBUTION WIDTH 13.6 % (11.6-16.5)
[2021-01-26 06:18] LABS: ALANINE AMINOTRANSFERASE 14 Units/L (12-78); ALBUMIN 2.5 g/dL (3.4-5.0); ALKALINE PHOSPHATASE 50 Units/L (46-116); ASPARTATE AMINO TRANSFERASE 14 Units/L (15-37); BLOOD UREA NITROGEN 25 mg/dL (7-18); CARBON DIOXIDE 30.9 mmol/L (21-32); CHLORIDE 104 mmol/L (98-107); COR CA(FOR HYPOALB) 10.2 mg/dL (8.5-10.1); CREATININE 1.11 mg/dL (0.70-1.30); SODIUM 141 mmol/L (136-145); TOTAL PROTEIN 6.7 g/dL (6.4-8.2); eGFR NON BLACK RACES > 60 (>60)
--- NOTE | 2021-01-26 07:03 | RAD ---
HISTORYSOBSTUDYCHEST, 1 [id number]/02/2021.TECHNIQUEAP view of the chestFINDINGSThe cardiac silhouette appears normal. Small hiatal hernia. Prominent left hilum. The lungs are otherwise clear without focal consolidation or segmental collapse. No pleural effusion or pneumothorax.IMPRESSIONSmall hiatal hernia. Left hilum appears prominent. Consider CT chest for further evaluation.Electronically signed by: Milan Keller (Jan 26, 2021 07:01:53)
[2021-01-26] MEDS: PULMICORT NEB TX 0.5 MG NEB SCH ×2 (08:55→20:53)
[2021-01-26] MEDS: ROBITUSSIN DM PO SCH ×5 (09:17→20:58)
[2021-01-26] MEDS: VSL#3 PO SCH ×2 (09:17→11:05)
[2021-01-26] MEDS: EFFEXOR XR 75 MG CAP 24-HR PO SCH (11:05)
[2021-01-26] MEDS: DEPAKENE PEG SCH ×2 (11:05→20:56)
[2021-01-26] MEDS: COLACE SYRUP 100 MG UDC PEG SCH (11:05)
[2021-01-26] MEDS: FLONASE NASAL SPRAY ENOSTRIL SCH ×2 (11:06→20:56)
[2021-01-26] MEDS: PriLOSEC PO SCH ×2 (11:06→20:58)
[2021-01-26] MEDS: LASIX PEG SCH ×2 (11:06→20:56)
[2021-01-26] MEDS: GEODON PO SCH ×2 (11:06→20:56)
[2021-01-26] MEDS: NAMENDA TAB 10 MG PEG SCH (11:06)
[2021-01-26] MEDS: PROSCAR PEG SCH (11:06)
[2021-01-26] MEDS: SINGULAIR TAB 10 MG PEG SCH (11:07)
[2021-01-26] MEDS: XANAX PEG SCH ×2 (11:07→20:58)
[2021-01-26] MEDS: LOVENOX INJ 30 MG SYR SC SCH ×2 (11:07→20:57)
--- NOTE | 2021-01-26 11:18 | DR.H&P ---
H&P - History & Physical for Day of: H&P Date: 01/25/21 - Chief Complaint Chief Complaint: FEVER, COUGH, WHEEZING, WEAKNESS, DRAINAGE FROM G-TUBE - History of Present Illness History of Present Illness: IS A 75 YEAR OLD PATIENT OF OURS. HE IS A RESIDENT OF [facility]. HE PRESENTED TO THE HOSPITAL A DIRECT ADMISSION FOR TREATMENT OF PNEUMONIA AND DRAINAGE AROUND G-TUBE. RETIREMENT STAFF REPORTS THAT PATIENT HAS HAD FEVER, PRODUCTIVE COUGH, WHEEZING, AND GENERALIZED WEAKNESS. HE HAD A CHEST XRAY IN THE ER ON 01/20/21 THAT WAS CONCERNING FOR PNEUMONIA. PATIENT HAS ALSO HAD REDNESS AND DRAINAGE AROUND SITE OF G-TUBE. PATIENT HAS BEEN RECEIVING ROCEPHIN AT THE RETIREMENT FOR TREATMENT OF PNEUMONIA SINCE 01/20 WITHOUT SIGNIFICANT IMPROVEMENT IN SYMPTOMS. HE HAS A HX OF CVA AND IS APHASIC. ON ARRIVAL TO THE HOSPITAL, VITALS WERE 99.4-67-19-97%-114/68. LABS WERE REPEATED. THEY REVEALED THE FOLLOWING ABNORMAL LAB VALUES: RBC 3.95, HGB 12.2, RBC 35.7, BUN 28, AST 10, ALBUMIN 2.8. BLOOD CULTURES WERE SET UP. COVID-19 NEGATIVE. HE WAS STARTED ON THE PNEUMONIA PROTOCOL WITH NORMAL SALINE AT 75ML/HR, LEVAQUIN 500MG IV DAILY, XOPENEX NEB TX Q6H, PULMICORT NEB TIX BID, ROBITUSSIN DM 10ML PO QID, TUSSIONEX 5ML PO Q12H PRN, LOVENOX 30MG SC BID, AND HIS HOME MEDICATIONS WERE RESUMED. WE WILL CONSULT WITH REGARDING DRAINAGE FROM G-TUBE. OTHERWISE, WE PLAN TO FOLLOW UP WITH AM LABS AND CHEST XRAY AND CONTINUE TO [facility]. TIME SPENT ON CLINICAL ASSESSMENT, REVIEWING LABS AND IMAGING, DECISION MAKING, AND DOCUMENTATION GREATER THAN 75 MINUTES. - Past Medical History Past Medical History: Hypertension, Dyslipidemia, Diabetes, Schizophrenia, Dementia, Depression, Anxiety, CVA, COPD, GERD Additional Medical History: Prostate Cancer, Chronic Cholelithiasis - Past Surgical History Surgical History: Cholecystectomy, Other Additional Surgical History: Prostatectomy, Hiatal Hernia Repair, Left Knee - Family History Family Medical History: Diabetes Mellitus, Coronary Artery Disease, Hypertension - Social History Type of Tobacco Use: None Alcohol Use: None Drug Use: None - Medications Home Medications: No Known Drug Allergies Allergy (Verified 11/17/20 17:42) CONTINUE taking the following medications doxycycline hyclate 100 mg FEEDING TUBE BID 01/26/21 [History] - Review of Systems Constitutional: Weakness Eyes: No Symptoms Reported ENT: No Symptoms Reported Respiratory: See HPI, Cough, Shortness of Breath, Sputum, Wheezing Cardiovascular: No Symptoms Reported Gastrointestinal: See HPI, Other (DRAINAGE FROM G-TUBE) Genitourinary: No Symptoms Reported Musculoskeletal: No Symptoms Reported Skin: No Symptoms Reported Neurological: Weakness - Physical Exam Vital Signs: Temperature 97.7 F Pulse Rate [Brachial] 97 Pulse Rate 76 Respiratory Rate 20 Blood Pressure [Right Arm] 112/57 Blood Pressure [Left Arm] 104/55 Blood Pressure 115/72 O2 Sat by Pulse Oximetry 94 Oriented: Unable to test Eyes: Normal Ear: Normal Nose: Normal Throat: Normal Respiratory: Wheezes Throughout Cardiovascular: Normal : Normal Auscultation: Bowel Sounds: Normal Palpation: Normal Tenderness: Normal Skin: Normal Musculoskeletal: Normal Psychiatric: Normal Mood Description: Calm Affect: Normal Speech Pattern: Clear - Assessment/Plan (1) Pneumonia Qualifiers: Pneumonia type: due to unspecified organism Laterality: unspecified laterality Lung location: unspecified part of lung Qualified Code(s): J18.9 - Pneumonia, unspecified organism Status: Acute Plan: ADMIT, NORMAL SALINE AT 75ML/HR, LEVAQUIN 500MG IV DAILY, XOPENEX NEB TX Q6H, PULMICORT NEB TIX BID, ROBITUSSIN DM 10ML PO QID, TUSSIONEX 5ML PO Q12H PRN, LOVENOX 30MG SC BID, AND HIS HOME MEDICATIONS WERE RESUMED. (2) Drainage from gastrostomy tube site Status: Acute - Allergies Allergies/Adverse Reactions: Allergies Allergy/AdvReac Type Severity Reaction Status Date / Time No Known Drug Allergies Allergy Verified 11/17/20 17:42
[2021-01-26] MEDS: NS 1/2 1,000 ML IV 1,000 ML IV SCH (12:47)
[2021-01-26] MEDS ORDERED: NS 1/2 1,000 ML IV 1,000 ML IV ONE (12:48)
[2021-01-26] MEDS: ASTELIN NASAL SPRAY ENOSTRIL SCH ×2 (13:02→21:41)
[2021-01-26] MEDS: ARTIFICIAL TEARS DROPS OP SCH (20:56)
[2021-01-26] MEDS: FLOMAX PO SCH (20:56)
[2021-01-26] MEDS: LOPRESSOR TAB 25 MG PEG SCH (20:57)
[2021-01-26] MEDS ORDERED: NAMENDA TAB 10 MG PEG SCH (21:00)
[2021-01-26] MEDS ORDERED: ARICEPT TAB 10 MG PEG SCH (21:00)
[2021-01-27] MEDS: XOPENEX 1.25 MG/3 ML NEBULE NEB SCH ×2 (00:16→05:09)
[2021-01-27] MEDS ORDERED: NS 1/2 1,000 ML IV 1,000 ML IV ONE (03:59)
[2021-01-27] MEDS: NS 1/2 1,000 ML IV 1,000 ML IV SCH (04:05)
[2021-01-27 05:19] LABS: BASOPHILS % (AUTO) 0.3 % (0.2-1.0); EOSINOPHILS # (AUTO) 0.1 x10^3/uL (0.0-0.2); HEMATOCRIT 34.3 % (42.0-54.0); HEMOGLOBIN 11.9 g/dL (13.5-18.0); LYMPHOCYTES % (AUTO) 17.4 % (21.0-51.0); MEAN CORPUSCULAR HEMOGLOBIN 30.9 pg (27.0-34.0); MEAN CORPUSCULAR HGB CONC 34.6 g/dL (33.0-35.0); MEAN CORPUSCULAR VOLUME 89.1 fL (80.0-100.0); MEAN PLATELET VOLUME 7.2 fL (7.4-11.0); MONOCYTES # (AUTO) 0.6 x10^3/uL (0.3-0.8); MONOCYTES % (AUTO) 10.3 % (0.0-13.0); NEUTROPHILS # (AUTO) 4.2 x10^3/uL (2.2-4.8); PLATELET COUNT 189 X10^3/uL (150.0-450.0); RED BLOOD COUNT 3.85 X10^6/uL (4.7-6.0); RED CELL DISTRIBUTION WIDTH 13.4 % (11.6-16.5); WHITE BLOOD COUNT 5.9 X10^3/uL (3.6-10.0)
[2021-01-27 05:28] LABS: ALANINE AMINOTRANSFERASE 13 Units/L (12-78); ALBUMIN 2.5 g/dL (3.4-5.0); ALKALINE PHOSPHATASE 52 Units/L (46-116); ASPARTATE AMINO TRANSFERASE 13 Units/L (15-37); BLOOD UREA NITROGEN 18 mg/dL (7-18); CALCIUM 8.9 mg/dL (8.5-10.1); CARBON DIOXIDE 26.9 mmol/L (21-32); CHLORIDE 102 mmol/L (98-107); COR CA(FOR HYPOALB) 10.1 mg/dL (8.5-10.1); CREATININE 0.93 mg/dL (0.70-1.30); SODIUM 135 mmol/L (136-145); TOTAL PROTEIN 6.6 g/dL (6.4-8.2); eGFR NON BLACK RACES > 60 (>60)
[2021-01-27] MEDS: ASTELIN NASAL SPRAY ENOSTRIL SCH (05:43)
--- NOTE | 2021-01-27 07:20 | RAD ---
HISTORYSOBSTUDYCHEST, 1 [id number]/07/2021.TECHNIQUEAP view of the chestFINDINGSThe cardiac and mediastinal contours are stable. The lungs are clear without focal consolidation or segmental collapse. No pleural effusion or pneumothorax. Small hiatal hernia.IMPRESSIONNo significant change.Electronically signed by: Milan Keller (Jan 27, 2021 07:19:34)
[2021-01-27] MEDS: LOVENOX INJ 30 MG SYR SC SCH (08:38)
[2021-01-27 08:43] VITALS: BP 107/59
[2021-01-27] MEDS: ARTIFICIAL TEARS DROPS OP SCH (08:44)
[2021-01-27] MEDS: FLOMAX PO SCH ×2 (08:44→10:28)
[2021-01-27] MEDS: COLACE SYRUP 100 MG UDC PEG SCH ×2 (08:44→10:29)
[2021-01-27] MEDS: EFFEXOR XR 75 MG CAP 24-HR PO SCH ×2 (08:44→10:30)
[2021-01-27] MEDS: DEPAKENE PEG SCH ×2 (08:44→10:28)
[2021-01-27] MEDS: GEODON PO SCH ×2 (08:45→10:28)
[2021-01-27] MEDS: LASIX PEG SCH ×2 (08:45→10:28)
[2021-01-27] MEDS: NAMENDA TAB 10 MG PEG SCH ×2 (08:45→10:31)
[2021-01-27] MEDS: LOPRESSOR TAB 25 MG PEG SCH ×2 (08:45→10:29)
[2021-01-27] MEDS: PROSCAR PEG SCH ×2 (08:45→10:30)
[2021-01-27] MEDS: FLONASE NASAL SPRAY ENOSTRIL SCH (08:45)
[2021-01-27] MEDS: PriLOSEC PO SCH ×2 (08:45→10:29)
[2021-01-27] MEDS: ROBITUSSIN DM PO SCH ×2 (08:46→10:27)
[2021-01-27] MEDS: VSL#3 PO SCH ×2 (08:46→10:42)
[2021-01-27] MEDS: XANAX PEG SCH ×2 (08:46→10:29)
[2021-01-27] MEDS: SINGULAIR TAB 10 MG PEG SCH ×2 (08:46→10:30)
[2021-01-27] MEDS ORDERED: THIORIDAZINE 50 MG PEG SCH (09:00)
[2021-01-27] MEDS: PULMICORT NEB TX 0.5 MG NEB SCH (09:05)
== END 2021-01-27 11:09 ==
LOC: MED/SURG
PROVIDERS: ADMIT Internal Medicine; ATTEND Internal Medicine
DX: K94.22 Gastrostomy infection; K21.9 Gastro-esophageal reflux disease without esophagitis; L30.8 Other specified dermatitis; K94.23 Gastrostomy malfunction; Z20.822 Contact with and (suspected) exposure to COVID-19; B96.4 Proteus (mirabilis) (morganii) as the cause of diseases classified elsewhere; F20.89 Other schizophrenia; I10 Essential (primary) hypertension; B95.7 Other staphylococcus as the cause of diseases classified elsewhere; Z86.73 Personal history of transient ischemic attack (TIA), and cerebral infarction without residual deficits; R06.02 Shortness of breath; F41.8 Other specified anxiety disorders; E11.65 Type 2 diabetes mellitus with hyperglycemia; Z85.46 Personal history of malignant neoplasm of prostate; J15.6 Pneumonia due to other Gram-negative bacteria; E78.2 Mixed hyperlipidemia; J44.9 Chronic obstructive pulmonary disease, unspecified

== ENCOUNTER 2022-09-16 00:51 | Inpatient (IN) ==
[2022-09-16] MEDS ORDERED: TYLENOL SUPP 650 MG PR PRN (01:45)
[2022-09-16] MEDS: NS 1,000 ML IV 1,000 ML IV SCH ×3 (01:58→18:26)
[2022-09-16] MEDS: PROTONIX INJ 40 MG VIAL IVP SCH ×3 (01:58→20:46)
[2022-09-16 02:31] VITALS: BMI 21.4
--- NOTE | 2022-09-16 03:12 | RAD ---
PROCEDURE: Chest X-ray 1 View .HISTORY: Cough and fever.TECHNIQUE: AP portable done at 2:13 a.m..COMPARISON: 06/13/2022.TECHNICAL QUALITY: Satisfactory .FINDINGS:Normal size heart .Unchanged prominent left hilum.Normal central vascularity .Mild increased markings right base could be related to early pneumonia and follow-up films recommended. Left lung desai clear. No pleural fluid.No acute bony abnormality .IMPRESSION:1. Questionable early pneumonia right base and follow-up films may be helpful.2. Unchanged prominent left hilum.Electronically signed by: Dao Agarwal (Sep 16, 2022 03:11:17)
[2022-09-16 06:32] LABS: BASOPHILS % (AUTO) 0.2 % (0.2-1.0); HEMATOCRIT 40.6 % (42.0-54.0); HEMOGLOBIN 14.1 g/dL (13.5-18.0); LYMPHOCYTES # (AUTO) 0.9 X10^3/uL (1.3-2.9); MEAN CORPUSCULAR HEMOGLOBIN 30.7 pg (27.0-34.0); MEAN CORPUSCULAR HGB CONC 34.8 g/dL (33.0-35.0); MEAN PLATELET VOLUME 7.7 fL (7.4-11.0); MONOCYTES # (AUTO) 0.9 x10^3/uL (0.3-0.8); MONOCYTES % (AUTO) 4.7 % (0.0-13.0); NEUTROPHILS # (AUTO) 16.5 x10^3/uL (2.2-4.8); NEUTROPHILS % (AUTO) 90.1 % (42.0-75.0); PLATELET COUNT 178 X10^3/uL (150.0-450.0); RED BLOOD COUNT 4.61 X10^6/uL (4.7-6.0); WHITE BLOOD COUNT 18.4 X10^3/uL (3.6-10.0)
[2022-09-16 06:34] LABS: ALANINE AMINOTRANSFERASE 43 Units/L (12-78); ALBUMIN 3.1 g/dL (3.4-5.0); ALKALINE PHOSPHATASE 110 Units/L (46-116); ASPARTATE AMINO TRANSFERASE 57 Units/L (15-37); BLOOD UREA NITROGEN 22 mg/dL (7-18); CARBON DIOXIDE 29.6 mmol/L (21-32); CHLORIDE 96 mmol/L (98-107); COR CA(FOR HYPOALB) 9.7 mg/dL (8.5-10.1); CREATININE 0.88 mg/dL (0.70-1.30); GLUCOSE 94 mg/dL (65-99); POTASSIUM 4.1 mmol/L (3.5-5.1); SODIUM 133 mmol/L (136-145); TOTAL PROTEIN 6.7 g/dL (6.4-8.2); eGFR NON BLACK RACES > 60 (>60)
[2022-09-16] MEDS ORDERED: PROVENTIL NEB TX 0.083% 2.5MG/ 3ML ONE (07:59)
[2022-09-16] MEDS ORDERED: PULMICORT NEB TX 0.5 MG NEB ONE (07:59)
[2022-09-16 08:10] LABS: BAND NEUTROPHILS % 12 % (0-10); BASOPHILS % (MANUAL) 0 % (0-1); PLATELET MORPHOLOGY COMMENT NORMAL (NORMAL)
[2022-09-16] MEDS: PULMICORT NEB TX 0.5 MG NEB SCH ×2 (09:00→20:35)
[2022-09-16] MEDS: PROVENTIL NEB TX 0.083% 2.5MG/ 3ML NEB SCH ×2 (09:00→20:35)
[2022-09-16] MEDS: LEVAQUIN PREMIX IV 500 MG 500 MG/100 ML BAG IV SCH (11:15)
[2022-09-16] MEDS: BACTROBAN TOPICAL OINT TOP SCH ×2 (12:00→20:48)
[2022-09-16] MEDS: FORTAZ or TAZICEF VIAL INJ 1 G in NS 100 ML IV 100 ML IV SCH ×3 (12:35→21:05)
[2022-09-16] MEDS: KEPPRA ORAL SOLN PEG SCH ×2 (13:00→20:46)
[2022-09-16] MEDS: DEPAKENE PEG SCH ×2 (13:30→20:47)
[2022-09-16] MEDS: MORPHINE SULFATE INJ 2 MG INJ IVP PRN ×2 (13:36→22:29)
[2022-09-16] MEDS: FLOMAX PO SCH ×2 (14:00→20:47)
[2022-09-16] MEDS: OXCARBAZEPINE 150 MG PEG SCH ×2 (15:03→20:46)
[2022-09-16] MEDS: ASTELIN NASAL SPRAY ENOSTRIL SCH ×2 (15:04→21:05)
[2022-09-16] MEDS: PROSCAR PEG SCH (15:05)
[2022-09-16] MEDS: SINGULAIR TAB 10 MG PEG SCH (15:05)
[2022-09-16] MEDS: NAMENDA TAB 10 MG PEG SCH ×2 (15:06→20:47)
[2022-09-16] MEDS: FLONASE NASAL SPRAY ENOSTRIL SCH ×2 (15:06→20:48)
[2022-09-16] MEDS: NYSTATIN CREAM TOP SCH (15:06)
[2022-09-16] MEDS: XANAX PEG SCH (20:47)
[2022-09-16] MEDS ORDERED: ASTELIN NASAL SPRAY ENOSTRIL ONE (20:51)
--- NOTE | 2022-09-16 21:07 | DR.H&P ---
H&P - History & Physical for Day of: H&P Date: 09/16/22 - Chief Complaint Chief Complaint: COUGH, SOB, DRAINAGE FROM PEG TUBE, FEVER - Past Medical History Past Medical History: Hypertension, Dyslipidemia, Diabetes, Schizophrenia, Dementia, Depression, Anxiety, CVA, COPD, GERD Additional Medical History: Prostate Cancer, Chronic Cholelithiasis - Past Surgical History Surgical History: Cholecystectomy, Other Additional Surgical History: Prostatectomy, Hiatal Hernia Repair, Left Knee - Family History Family Medical History: Diabetes Mellitus, Coronary Artery Disease, Hypertension - Social History Alcohol Use: None - Review of Systems Constitutional: Weakness Eyes: No Symptoms Reported ENT: No Symptoms Reported Respiratory: Cough, Shortness of Breath Cardiovascular: No Symptoms Reported Gastrointestinal: See HPI, Other (DRAINAGE FROM G-TUBE ) Genitourinary: No Symptoms Reported Musculoskeletal: No Symptoms Reported Skin: No Symptoms Reported Neurological: Weakness - Physical Exam Vital Signs: Vital Signs Temperature 97.9 F Temperature 100.0 F Pulse Rate 81 Pulse Rate 93 Pulse Rate 93 Pulse Rate 102 Pulse Rate 100 Pulse Rate 103 Pulse Rate 96 Respiratory Rate 17 Respiratory Rate 24 Respiratory Rate 21 Respiratory Rate 21 Respiratory Rate 23 Respiratory Rate 31 Respiratory Rate 20 Respiratory Rate 24 Respiratory Rate 20 Blood Pressure 108/64 Blood Pressure 103/65 Blood Pressure 83/51 Blood Pressure 84/53 Blood Pressure 86/50 Blood Pressure 106/58 Blood Pressure 97/55 O2 Sat by Pulse Oximetry 100 O2 Sat by Pulse Oximetry 98 O2 Sat by Pulse Oximetry 97 O2 Sat by Pulse Oximetry 98 O2 Sat by Pulse Oximetry 98 O2 Sat by Pulse Oximetry 99 O2 Sat by Pulse Oximetry 100 Oriented: Unable to test Eyes: Normal Ear: Normal Nose: Normal Throat: Normal Respiratory: Rhonchi Throughout Cardiovascular: Tachycardia : Normal Auscultation: Bowel Sounds: Normal Palpation: Normal Tenderness: Periumbilical, Mild Skin: Red (PERIUMBILICAL ), Tender Musculoskeletal: Normal Psychiatric: Normal Mood Description: Calm Affect: Normal Speech Pattern: Aphasic - Assessment/Plan (1) Pneumonia Qualifiers: Pneumonia type: aspiration pneumonia Aspiration pneumonia type: due to gastric secretions Laterality: right Lung location: lower lobe of lung Qualified Code(s): J69.0 - Pneumonitis due to inhalation of food and vomit Status: Acute Plan: ADMIT, SUPPLEMENTAL OXYGEN, NORMAL SALINE AT 75ML/HR, FORTAZ 1G IV Q8H, LEVAQUIN 500MG IV DAILY, PROVENTIL NEBS TID, PULMICORT NEBS BID, MORPHINE 2MG IV Q4H PRN, MUPIROCIN OINTMENT AROUND G TUBE BID, PROTONIX 40MG IV BID, AND TYLENOL 650MG ME Q4H PRN. HIS HOME MEDICATIONS OF XANAX, ASTELIN, COLACE, PROSCAR, FLONASE, FOLIC ACID, KEPPRA, MOBIC, NAMENDA, SINGULAIR, NYSTATIN, ZYPREXA, FLOMAX, VALPROIC ACID WERE RESUMED.. MONITOR LABS AND CHEST XRAY (2) Drainage from gastrostomy tube site Status: Acute Plan: CONSULT , GENERAL SURGERY (3) Generalized weakness Status: Acute (4) Fever Qualifiers: Fever type: unspecified Qualified Code(s): R50.9 - Fever, unspecified Status: Acute (5) Benign essential HTN Status: Chronic (6) Dementia Qualifiers: Dementia type: vascular dementia Status: Chronic (7) GERD (gastroesophageal reflux disease) Qualifiers: Esophagitis presence: esophagitis presence not specified Status: Chronic (8) COPD (chronic obstructive pulmonary disease) Qualifiers: COPD type: unspecified COPD Qualified Code(s): J44.9 - Chronic obstructive pulmonary disease, unspecified Status: Chronic (9) History of CVA (cerebrovascular accident) Status: Chronic - Allergies Allergies/Adverse Reactions: Allergies Allergy/AdvReac Type Severity Reaction Status Date / Time No Known Drug Allergies Allergy Unknown Verified 09/16/22 18:48 - Medications Home Medications: Home Medications Medication Instructions Recorded Confirmed memantine 10 mg tablet 10 mg feeding tube BID 12/20/16 09/16/22 montelukast 10 mg tablet 10 mg feeding tube DAILY 12/20/16 09/16/22 furosemide 20 mg tablet 20 mg feeding tube BID 01/19/17 09/16/22 apixaban 2.5 mg tablet (Eliquis) 2.5 mg feeding tube BID 06/06/17 09/16/22 alprazolam 0.25 mg tablet (Xanax) 0.25 mg feeding tube BID ANXIETY 09/15/17 09/16/22 budesonide-formoterol HFA 80 2 puff inhalation BID 09/15/17 09/16/22 mcg-4.5 mcg/actuation aerosol inhaler (Symbicort) docusate sodium 50 mg/5 mL oral 200 mg feeding tube DAILY 09/15/17 09/16/22 liquid valproic acid (as sodium salt) 250 500 mg feeding tube BID 09/15/17 09/16/22 mg/5 mL oral solution azelastine 137 mcg (0.1 %) nasal 1 spray intranasal TID 01/15/18 09/16/22 spray aerosol finasteride 5 mg tablet (Proscar) 5 mg feeding tube DAILY 05/17/19 09/16/22 tamsulosin 0.4 mg capsule 0.4 mg PO BID 05/17/19 09/16/22 metoprolol tartrate 25 mg tablet 12.5 mg feeding tube BID 01/14/20 09/16/22 omeprazole 40 mg capsule,delayed 40 mg feeding tube BID 01/14/20 09/16/22 release fluticasone propionate 50 2 spray intranasal BID 11/17/20 09/16/22 mcg/actuation nasal spray,suspension meloxicam 7.5 mg tablet 7.5 mg feeding tube QDAY 06/13/22 09/16/22 nystatin 100,000 unit/gram topical 1 applic topical QDAY 06/13/22 09/16/22 cream folic acid 1 mg tablet 1 mg feeding tube QDAY 09/16/22 09/16/22 levetiracetam 100 mg/mL oral 500 mg feeding tube BID 09/16/22 09/16/22 solution olanzapine 7.5 mg tablet 7.5 mg feeding tube QHS 09/16/22 09/16/22 oxcarbazepine 150 mg tablet 150 mg feeding tube BID 09/16/22 09/16/22 (Trileptal)
--- NOTE | 2022-09-16 22:59 | RAD ---
HISTORYPAINSTUDYELBOW, RIGHTCOMPARISONNone availableTECHNIQUERight elbow radiographs, 2 views, AP and lateral projectionsFINDINGSNo fracture or dislocation.No joint effusion.Soft tissues are unremarkable.IMPRESSIONNo acute osseous abnormality.Electronically signed by: Andrew Sousa (Sep 16, 2022 22:58:39)
[2022-09-17] MEDS: NS 1,000 ML IV 1,000 ML IV SCH ×5 (02:19→21:21)
[2022-09-17] MEDS: MORPHINE SULFATE INJ 2 MG INJ IVP PRN ×2 (04:36→08:44)
[2022-09-17] MEDS: ASTELIN NASAL SPRAY ENOSTRIL SCH ×3 (05:09→21:20)
[2022-09-17] MEDS: FORTAZ or TAZICEF VIAL INJ 1 G in NS 100 ML IV 100 ML IV SCH ×3 (05:09→21:20)
--- NOTE | 2022-09-17 05:30 | RAD ---
PROCEDURE: Chest X-ray 1 View .HISTORY: Dyspnea.TECHNIQUE: AP view .COMPARISON: 09/16/2022.TECHNICAL QUALITY: Satisfactory .FINDINGS:Normal size heart .Unchanged prominent left hilum.Normal central vascularity .No pulmonary consolidation, masses, pleural fluid, or pneumothorax. No evidence of developing pneumonia at the right base.No acute bony abnormality .IMPRESSION:1. No evidence of pneumonia.2. Unchanged prominent left hilum.Electronically signed by: Dao Agarwal (Sep 17, 2022 05:28:41)
[2022-09-17 05:52] LABS: ALANINE AMINOTRANSFERASE 207 Units/L (12-78); ALBUMIN 2.8 g/dL (3.4-5.0); ALKALINE PHOSPHATASE 148 Units/L (46-116); ASPARTATE AMINO TRANSFERASE 198 Units/L (15-37); BLOOD UREA NITROGEN 12 mg/dL (7-18); CALCIUM 9.1 mg/dL (8.5-10.1); CHLORIDE 101 mmol/L (98-107); COR CA(FOR HYPOALB) 10.1 mg/dL (8.5-10.1); CREATININE 0.77 mg/dL (0.70-1.30); GLUCOSE 61 mg/dL (65-99); POTASSIUM 3.7 mmol/L (3.5-5.1); SODIUM 138 mmol/L (136-145); TOTAL PROTEIN 6.4 g/dL (6.4-8.2); eGFR NON BLACK RACES > 60 (>60)
[2022-09-17 05:53] LABS: BASOPHILS % (AUTO) 0.2 % (0.2-1.0); HEMATOCRIT 37.1 % (42.0-54.0); HEMOGLOBIN 12.8 g/dL (13.5-18.0); LYMPHOCYTES # (AUTO) 0.8 X10^3/uL (1.3-2.9); LYMPHOCYTES % (AUTO) 7.6 % (21.0-51.0); MEAN CORPUSCULAR HEMOGLOBIN 31.2 pg (27.0-34.0); MEAN CORPUSCULAR HGB CONC 34.6 g/dL (33.0-35.0); MEAN CORPUSCULAR VOLUME 90.2 fL (80.0-100.0); MEAN PLATELET VOLUME 8.3 fL (7.4-11.0); MONOCYTES # (AUTO) 0.5 x10^3/uL (0.3-0.8); MONOCYTES % (AUTO) 4.5 % (0.0-13.0); NEUTROPHILS # (AUTO) 9.4 x10^3/uL (2.2-4.8); NEUTROPHILS % (AUTO) 87.7 % (42.0-75.0); PLATELET COUNT 136 X10^3/uL (150.0-450.0); RED BLOOD COUNT 4.11 X10^6/uL (4.7-6.0); RED CELL DISTRIBUTION WIDTH 13.3 % (11.6-16.5); WHITE BLOOD COUNT 10.7 X10^3/uL (3.6-10.0)
[2022-09-17] MEDS: PROVENTIL NEB TX 0.083% 2.5MG/ 3ML NEB SCH ×3 (05:55→21:00)
[2022-09-17] MEDS: PULMICORT NEB TX 0.5 MG NEB SCH ×2 (08:28→21:00)
[2022-09-17] MEDS ORDERED: ASTELIN NASAL SPRAY ENOSTRIL ONE (08:28)
[2022-09-17] MEDS: FLONASE NASAL SPRAY ENOSTRIL SCH ×2 (08:41→21:21)
[2022-09-17] MEDS: DEPAKENE PEG SCH ×2 (08:42→21:18)
[2022-09-17] MEDS: COLACE SYRUP 100 MG UDC PEG SCH (08:42)
[2022-09-17] MEDS: LEVAQUIN PREMIX IV 500 MG 500 MG/100 ML BAG IV SCH (08:42)
[2022-09-17] MEDS: BACTROBAN TOPICAL OINT TOP SCH ×2 (08:42→21:20)
[2022-09-17] MEDS: OXCARBAZEPINE 150 MG PEG SCH ×2 (08:43→21:21)
[2022-09-17] MEDS: NAMENDA TAB 10 MG PEG SCH ×2 (08:43→21:19)
[2022-09-17] MEDS: PROTONIX INJ 40 MG VIAL IVP SCH ×2 (08:44→21:20)
[2022-09-17] MEDS: XANAX PEG SCH ×2 (08:44→21:19)
[2022-09-17] MEDS: FLOMAX PO SCH ×2 (08:44→21:19)
[2022-09-17] MEDS: SINGULAIR TAB 10 MG PEG SCH (08:44)
[2022-09-17] MEDS: PROSCAR PEG SCH (08:44)
[2022-09-17] MEDS ORDERED: K-DUR TAB 20 MEQ PO SCH (09:00)
[2022-09-17] MEDS: FOLIC ACID TAB 1 MG NG SCH (09:04)
[2022-09-17] MEDS: MOBIC TAB 15 MG PO SCH (09:05)
[2022-09-17] MEDS: NYSTATIN CREAM TOP SCH (09:05)
[2022-09-17] MEDS: KEPPRA ORAL SOLN PEG SCH ×2 (09:07→21:19)
[2022-09-17] MEDS ORDERED: KLOR-CON PO NR (09:15)
[2022-09-18] MEDS: NS 1,000 ML IV 1,000 ML IV SCH ×2 (02:04→10:07)
[2022-09-18] MEDS: FORTAZ or TAZICEF VIAL INJ 1 G in NS 100 ML IV 100 ML IV SCH ×3 (05:09→21:09)
[2022-09-18] MEDS: ASTELIN NASAL SPRAY ENOSTRIL SCH ×3 (05:13→21:09)
[2022-09-18 05:15] LABS: BASOPHILS % (AUTO) 0.4 % (0.2-1.0); EOSINOPHILS % (AUTO) 0.3 % (0.9-2.9); HEMATOCRIT 33.3 % (42.0-54.0); HEMOGLOBIN 11.5 g/dL (13.5-18.0); LYMPHOCYTES # (AUTO) 0.8 X10^3/uL (1.3-2.9); LYMPHOCYTES % (AUTO) 8.4 % (21.0-51.0); MEAN CORPUSCULAR HEMOGLOBIN 31.3 pg (27.0-34.0); MEAN CORPUSCULAR HGB CONC 34.6 g/dL (33.0-35.0); MEAN CORPUSCULAR VOLUME 90.5 fL (80.0-100.0); MEAN PLATELET VOLUME 8.5 fL (7.4-11.0); MONOCYTES # (AUTO) 0.6 x10^3/uL (0.3-0.8); MONOCYTES % (AUTO) 6.7 % (0.0-13.0); NEUTROPHILS % (AUTO) 84.2 % (42.0-75.0); PLATELET COUNT 130 X10^3/uL (150.0-450.0); RED BLOOD COUNT 3.69 X10^6/uL (4.7-6.0); RED CELL DISTRIBUTION WIDTH 13.3 % (11.6-16.5); WHITE BLOOD COUNT 9.5 X10^3/uL (3.6-10.0)
[2022-09-18 05:31] LABS: ALANINE AMINOTRANSFERASE 120 Units/L (12-78); ALBUMIN 2.5 g/dL (3.4-5.0); ALKALINE PHOSPHATASE 120 Units/L (46-116); ASPARTATE AMINO TRANSFERASE 65 Units/L (15-37); BLOOD UREA NITROGEN 9 mg/dL (7-18); CALCIUM 9.5 mg/dL (8.5-10.1); CARBON DIOXIDE 26.9 mmol/L (21-32); CHLORIDE 104 mmol/L (98-107); COR CA(FOR HYPOALB) 10.7 mg/dL (8.5-10.1); CREATININE 0.66 mg/dL (0.70-1.30); GLUCOSE 52 mg/dL (65-99); MAGNESIUM 1.8 mg/dL (2.0-2.9); POTASSIUM 3.7 mmol/L (3.5-5.1); SODIUM 139 mmol/L (136-145); TOTAL PROTEIN 6.3 g/dL (6.4-8.2); eGFR NON BLACK RACES > 60 (>60)
[2022-09-18] MEDS: PROVENTIL NEB TX 0.083% 2.5MG/ 3ML NEB SCH ×3 (05:45→20:33)
[2022-09-18] MEDS ORDERED: CONSULT PHARMACY - POTASSIUM & MAGNESIUM XX SCH ×3 (07:00→16:00)
[2022-09-18] MEDS ORDERED: D5W 1,000 ML IV 1,000 ML IV ONE (07:22)
[2022-09-18] MEDS: D5W 1,000 ML IV 1,000 ML IV SCH ×3 (07:30→23:11)
--- NOTE | 2022-09-18 08:17 | RAD ---
HISTORYSOB, prostate cancerSTUDYAP chestCOMPARISONJuly 2022FINDINGSInterval appearance of diffuse increase in parenchymal density in the right lung, accentuated by patient rotation to the right. Heart size remains normal with no definite infiltrate on the left. The pleural spaces remain well defined.IMPRESSIONFindings concerning for a developing right-sided pulmonary infiltrate. See above. Continued follow-up suggested to confirm or exclude.Electronically signed by: FELIPA GOMEZ (Sep 18, 2022 08:16:24)
[2022-09-18] MEDS: LEVAQUIN PREMIX IV 500 MG 500 MG/100 ML BAG IV SCH (08:32)
[2022-09-18] MEDS: FOLIC ACID TAB 1 MG NG SCH (08:33)
[2022-09-18] MEDS: FLONASE NASAL SPRAY ENOSTRIL SCH ×2 (08:33→20:08)
[2022-09-18] MEDS: PROTONIX INJ 40 MG VIAL IVP SCH ×2 (08:33→20:11)
[2022-09-18] MEDS: FLOMAX PO SCH ×2 (08:33→20:07)
[2022-09-18] MEDS: MOBIC TAB 15 MG PO SCH (08:34)
[2022-09-18] MEDS: BACTROBAN TOPICAL OINT TOP SCH ×2 (08:34→20:06)
[2022-09-18] MEDS: XANAX PEG SCH ×2 (08:34→20:09)
[2022-09-18] MEDS: SINGULAIR TAB 10 MG PEG SCH (08:34)
[2022-09-18] MEDS: NAMENDA TAB 10 MG PEG SCH ×2 (08:34→20:09)
[2022-09-18] MEDS: NYSTATIN CREAM TOP SCH (08:34)
[2022-09-18] MEDS: PROSCAR PEG SCH (08:34)
[2022-09-18] MEDS: OXCARBAZEPINE 150 MG PEG SCH ×2 (08:35→20:11)
[2022-09-18] MEDS: KEPPRA ORAL SOLN PEG SCH ×2 (08:35→20:08)
[2022-09-18] MEDS: DEPAKENE PEG SCH ×2 (08:35→20:04)
[2022-09-18] MEDS: COLACE SYRUP 100 MG UDC PEG SCH (08:35)
[2022-09-18] MEDS: MAG-OX TAB PO SCH ×2 (08:37→10:52)
[2022-09-18] MEDS ORDERED: K-DUR TAB 20 MEQ PO SCH (09:00)
[2022-09-18] MEDS: PULMICORT NEB TX 0.5 MG NEB SCH ×2 (09:11→20:33)
[2022-09-18] MEDS: MORPHINE SULFATE INJ 2 MG INJ IVP PRN ×2 (11:37→17:54)
[2022-09-18] MEDS ORDERED: KEPPRA TAB 500 MG ONE (19:48)
[2022-09-19] MEDS: FORTAZ or TAZICEF VIAL INJ 1 G in NS 100 ML IV 100 ML IV SCH ×3 (05:12→21:52)
[2022-09-19] MEDS: ASTELIN NASAL SPRAY ENOSTRIL SCH ×3 (05:15→21:52)
[2022-09-19 05:17] LABS: BASOPHILS % (AUTO) 0.9 % (0.2-1.0); EOSINOPHILS # (AUTO) 0.1 x10^3/uL (0.0-0.2); EOSINOPHILS % (AUTO) 3.2 % (0.9-2.9); HEMATOCRIT 30.7 % (42.0-54.0); HEMOGLOBIN 10.6 g/dL (13.5-18.0); LYMPHOCYTES # (AUTO) 0.8 X10^3/uL (1.3-2.9); LYMPHOCYTES % (AUTO) 16.7 % (21.0-51.0); MEAN CORPUSCULAR HEMOGLOBIN 31.2 pg (27.0-34.0); MEAN CORPUSCULAR HGB CONC 34.6 g/dL (33.0-35.0); MEAN CORPUSCULAR VOLUME 90.1 fL (80.0-100.0); MEAN PLATELET VOLUME 8.3 fL (7.4-11.0); MONOCYTES # (AUTO) 0.4 x10^3/uL (0.3-0.8); MONOCYTES % (AUTO) 7.6 % (0.0-13.0); NEUTROPHILS # (AUTO) 3.3 x10^3/uL (2.2-4.8); NEUTROPHILS % (AUTO) 71.6 % (42.0-75.0); PLATELET COUNT 117 X10^3/uL (150.0-450.0); RED BLOOD COUNT 3.41 X10^6/uL (4.7-6.0); WHITE BLOOD COUNT 4.6 X10^3/uL (3.6-10.0)
[2022-09-19 05:30] LABS: ALANINE AMINOTRANSFERASE 71 Units/L (12-78); ALBUMIN 2.1 g/dL (3.4-5.0); ALKALINE PHOSPHATASE 102 Units/L (46-116); ASPARTATE AMINO TRANSFERASE 32 Units/L (15-37); BLOOD UREA NITROGEN 8 mg/dL (7-18); CALCIUM 9.1 mg/dL (8.5-10.1); CARBON DIOXIDE 29.6 mmol/L (21-32); CHLORIDE 104 mmol/L (98-107); COR CA(FOR HYPOALB) 10.6 mg/dL (8.5-10.1); CREATININE 0.67 mg/dL (0.70-1.30); GLUCOSE 86 mg/dL (65-99); MAGNESIUM 1.8 mg/dL (2.0-2.9); POTASSIUM 3.5 mmol/L (3.5-5.1); SODIUM 138 mmol/L (136-145); TOTAL PROTEIN 5.7 g/dL (6.4-8.2); eGFR NON BLACK RACES > 60 (>60)
--- NOTE | 2022-09-19 05:39 | RAD ---
PROCEDURE: Chest X-ray 1 View .HISTORY: Dyspnea and pneumonia.TECHNIQUE: AP view .COMPARISON: 09/18/2022.TECHNICAL QUALITY: Satisfactory .FINDINGS:Normal size heart .Mediastinum and hilar regions show no masses or lymphadenopathy .Normal central vascularity .Increasing consolidation right base consistent with pneumonia. Left lung desai clear. No definite pleural fluid.No acute bony abnormality .IMPRESSION:Increasing pneumonia right base.Electronically signed by: Dao Agarwal (Sep 19, 2022 05:36:16)
[2022-09-19] MEDS: PROVENTIL NEB TX 0.083% 2.5MG/ 3ML NEB SCH ×5 (06:18→20:09)
[2022-09-19] MEDS ORDERED: CONSULT PHARMACY - POTASSIUM & MAGNESIUM XX SCH (07:00)
[2022-09-19] MEDS: PULMICORT NEB TX 0.5 MG NEB SCH ×2 (08:35→20:09)
[2022-09-19] MEDS: LEVAQUIN PREMIX IV 500 MG 500 MG/100 ML BAG IV SCH (08:47)
[2022-09-19] MEDS: OXCARBAZEPINE 150 MG PEG SCH ×2 (08:51→20:18)
[2022-09-19] MEDS: SINGULAIR TAB 10 MG PEG SCH (08:52)
[2022-09-19] MEDS: PROSCAR PEG SCH (08:52)
[2022-09-19] MEDS: PROTONIX INJ 40 MG VIAL IVP SCH ×2 (08:53→20:20)
[2022-09-19] MEDS: COLACE SYRUP 100 MG UDC PEG SCH (08:53)
[2022-09-19] MEDS: XANAX PEG SCH ×2 (08:54→20:17)
[2022-09-19] MEDS: FLOMAX PO SCH ×2 (08:55→20:16)
[2022-09-19] MEDS: MOBIC TAB 15 MG PO SCH (08:55)
[2022-09-19] MEDS: FOLIC ACID TAB 1 MG NG SCH (08:57)
[2022-09-19] MEDS: NAMENDA TAB 10 MG PEG SCH ×2 (08:58→20:17)
[2022-09-19] MEDS ORDERED: KLOR-CON PO SCH (09:00)
[2022-09-19] MEDS: KEPPRA ORAL SOLN PEG SCH ×2 (09:01→20:20)
[2022-09-19] MEDS: BACTROBAN TOPICAL OINT TOP SCH ×2 (09:03→20:13)
[2022-09-19] MEDS: FLONASE NASAL SPRAY ENOSTRIL SCH ×2 (09:03→20:19)
[2022-09-19] MEDS: NYSTATIN CREAM TOP SCH (09:04)
--- NOTE | 2022-09-19 09:05 | PCM.PROG ---
Progress Note - Progress Note for Day of Date of Exam: 09/17/22 - Subjective Subjective: IS CURRENTLY INPATIENT STATUS FOR TREATMENT OF RIGHT SIDED PNEUMONIA, DRAINAGE FROM GASTROSTOMY SITE, HYPONATREMIA, GENERALIZED WEAKNESS, AND FEVER. HE HAS A PMH OF HTN, DYSLIPIDEMIA, DM II, SCHIZOPHRENIA, DEMENTIA, DEPRESSION, ANXIETY, CVA, COPD, GERD, PROSTATE CANCER. HE IS APHASIC FROM PAST CVA. TODAY, HE IS ALERT, LYING IN BED ON MORNING ROUNDS. HE CONTINUES WITH A PRODUCTIVE COUGH THIS MORNING. HE IS CURRENTLY ON OXYGEN VIA NASAL CANNULA AT 2 LITERS/MIN. ON EXAMINATION, HE IS SLIGHTLY TACHYCARDIC WITH HR 100-110 BPM. ABDOMEN IS ROUND, SOFT, AND NON-TENDER WITH NORMAL BOWEL SOUNDS NOTED IN ALL QUADRANTS. HIS VITALS THIS MORNING ARE: 98.9-103-14-99%-139/80. LABS WERE OBT AINED. WBC 10.7, RBC 4.11, HGB 12.8, HCT 37.1, PLT COUNT 136, SODIUM 138, POTASSIUM 3.7, CHLORIDE 101, BUN 12, CREATININE 0.77, GLUCOSE 61, CALCIUM 9.1, TOTAL BILI 1.40, AST 198, ALT 207, ALK PHOS 148, TOTAL PROTEIN 6.4, ALBUMIN 2.8. BLOOD CULTURES ARE PENDING. HE IS CURRENTLY RECEIVING NORMAL SALINE AT 75ML/HR, FORTAZ 1G IV Q8H, LEVAQUIN 500MG IV DAILY, PROVENTIL NEBS TID, PULMICORT NEBS BID, MORPHINE 2MG IV Q4H PRN, MUPIROCIN OINTMENT AROUND G TUBE BID, PROTONIX 40MG IV BID, AND TYLENOL 650MG [place] Q4H PRN. HIS HOME MEDICATIONS OF XANAX, ASTELIN, COLACE, PROSCAR, FLONASE, FOLIC ACID, KEPPRA, MOBIC, NAMENDA, SINGULAIR, NYSTATIN, ZYPREXA, FLOMAX, VALPROIC ACID WERE RESUMED. WE WILL ADD THE POTASSIUM PROTOCOL AND INCREASE HIS ZYPREXA TO BID. OTHERWISE, WE WILL CONTINUE WITH CURRENT PLAN OF CARE TODAY. WE PLAN TO FOLLOW UP WITH AM LABS AND CONTINUE TO MONITOR. TIME SPENT ON CLINICAL ASSESSMENT, REVIEWING LABS AND IMAGING, DECISION MAKING, AND DOCUMENTATION GREATER THAN 45 MINUTES. - Past Medical Family Social History Past Med/Fam/Surg Hx: No changes since H&P Allergies: Allergies No Known Drug Allergies Allergy (Unknown, Verified 09/16/22 18:48) Onset Date: 09/28/2012 - Review of Systems ROS: No change since H&P - Vital Signs and I&O's Vital Signs: Vital Signs Temperature 97.4 F Pulse Rate 85 Pulse Rate 75 Pulse Rate 68 Pulse Rate 67 Pulse Rate 69 Pulse Rate 70 Pulse Rate 83 Respiratory Rate 22 Respiratory Rate 17 Respiratory Rate 20 Respiratory Rate 20 Respiratory Rate 13 Respiratory Rate 20 Respiratory Rate 18 Blood Pressure 110/61 Blood Pressure 104/56 Blood Pressure 98/53 Blood Pressure 96/50 Blood Pressure 96/58 O2 Sat by Pulse Oximetry 100 O2 Sat by Pulse Oximetry 100 O2 Sat by Pulse Oximetry 100 O2 Sat by Pulse Oximetry 100 O2 Sat by Pulse Oximetry 100 O2 Sat by Pulse Oximetry 100 O2 Sat by Pulse Oximetry 100 Intake and Output: Intake & Output 09/16/22 09/17/22 09/18/22 09/19/22 11:59 11:59 11:59 11:59 Intake Total 425 / 425 2875 / 2875 2057 Balance 425 / 425 2875 / 2875 2057 - Physical Exam Oriented: Unable to test Eyes: Normal Ear: Normal Nose: Normal Throat: Normal Respiratory: Wheezes Cardiovascular: Tachycardia : Normal Auscultation: Bowel Sounds: Normal Palpation: Normal Tenderness: Periumbilical, Mild Skin: Red (PERIUMBILICAL ), Tender Musculoskeletal: Normal Psychiatric: Normal Mood Description: Calm Affect: Normal Speech Pattern: Aphasic - Laboratory and Diagnostics Result Diagrams: 09/19/22 04:03 09/19/22 04:03 Labs: 09/16/22 01:52 Blood Blood Culture - Preliminary 09/16/22 01:45 Blood Blood Culture - Preliminary Laboratory WBC 4.6 X10^3/uL (3.6-10.0) 09/19/22 04:03 RBC 3.41 X10^6/uL (4.7-6.0) L 09/19/22 04:03 Hgb 10.6 g/dL (13.5-18.0) L 09/19/22 04:03 Hct 30.7 % (42.0-54.0) L 09/19/22 04:03 MCV 90.1 fL (80.0-100.0) 09/19/22 04:03 MCH 31.2 pg (27.0-34.0) 09/19/22 04:03 MCHC 34.6 g/dL (33.0-35.0) 09/19/22 04:03 RDW 13.0 % (11.6-16.5) 09/19/22 04:03 Plt Count 117 X10^3/uL (150.0-450.0) L 09/19/22 04:03 Plt Count Comment Adequate (ADEQUATE) 09/16/22 05:53 MPV 8.3 fL (7.4-11.0) 09/19/22 04:03 Neut % (Auto) 71.6 % (42.0-75.0) 09/19/22 04:03 Lymph % (Auto) 16.7 % (21.0-51.0) L 09/19/22 04:03 [place] % (Auto) 7.6 % (0.0-13.0) 09/19/22 04:03 Eos % (Auto) 3.2 % (0.9-2.9) H 09/19/22 04:03 Baso % (Auto) 0.9 % (0.2-1.0) 09/19/22 04:03 Neut # (Auto) 3.3 x10^3/uL (2.2-4.8) 09/19/22 04:03 Lymph # (Auto) 0.8 X10^3/uL (1.3-2.9) L 09/19/22 04:03 [place] # (Auto) 0.4 x10^3/uL (0.3-0.8) 09/19/22 04:03 Eos # (Auto) 0.1 x10^3/uL (0.0-0.2) 09/19/22 04:03 Baso # (Auto) 0.0 X10^3/uL (0.0-0.1) 09/19/22 04:03 Absolute Nucleated RBC 0.0 /100WBC 09/19/22 04:03 Total Counted 100 09/16/22 05:53 Neutrophils % (Manual) 81 % (39-76) H 09/16/22 05:53 Band Neutrophils % 12 % (0-10) H 09/16/22 05:53 Lymphocytes % (Manual) 4 % (13-43) L 09/16/22 05:53 Monocytes % (Manual) 3 % (4-9) L 09/16/22 05:53 Eosinophils % (Manual) 0 % (0-6) 09/16/22 05:53 Basophils % (Manual) 0 % (0-1) 09/16/22 05:53 Plt Morphology Comment Normal (NORMAL) 09/16/22 05:53 RBC Morphology Normal (NORMAL) 09/16/22 05:53 Sodium 138 mmol/L (136-145) 09/19/22 04:03 Corrected Sodium TNP 09/19/22 04:03 Potassium 3.5 mmol/L (3.5-5.1) 09/19/22 04:03 Chloride 104 mmol/L (98-107) 09/19/22 04:03 Carbon Dioxide 29.6 mmol/L (21-32) 09/19/22 04:03 BUN 8 mg/dL (7-18) 09/19/22 04:03 Creatinine 0.67 mg/dL (0.70-1.30) L 09/19/22 04:03 Est GFR (MDRD) Af Amer > 60 (>60) 09/19/22 04:03 Est GFR (MDRD) Non-Af > 60 (>60) 09/19/22 04:03 Glucose 86 mg/dL (65-99) 09/19/22 04:03 POC Glucose (mg/dL) 81 mg/dL (65-99) 09/18/22 09:39 Lactic Acid 0.9 mmol/L (0.4-2.0) 09/16/22 01:52 Calcium 9.1 mg/dL (8.5-10.1) 09/19/22 04:03 Corrected Calcium 10.6 mg/dL (8.5-10.1) H 09/19/22 04:03 Magnesium 1.8 mg/dL (2.0-2.9) L 09/19/22 04:03 Total Bilirubin 0.50 mg/dL (0.2-1.0) 09/19/22 04:03 AST 32 Units/L (15-37) 09/19/22 04:03 ALT 71 Units/L (12-78) 09/19/22 04:03 Alkaline Phosphatase 102 Units/L (46-116) 09/19/22 04:03 Total Protein 5.7 g/dL (6.4-8.2) L 09/19/22 04:03 Albumin 2.1 g/dL (3.4-5.0) L 09/19/22 04:03 Globulin 3.6 g/dL (2.5-4.5) 09/19/22 04:03 Albumin/Globulin Ratio 0.6 Ratio (1.1-2.1) L 09/19/22 04:03 - Plan (1) Pneumonia Status: Acute Qualifiers: Pneumonia type: aspiration pneumonia Aspiration pneumonia type: due to gastric secretions Laterality: right Lung location: lower lobe of lung Qualified Code(s): J69.0 - Pneumonitis due to inhalation of food and vomit Plan: SUPPLEMENTAL OXYGEN, NORMAL SALINE AT 75ML/HR, FORTAZ 1G IV Q8H, LEVAQUIN 500MG IV DAILY, PROVENTIL NEBS TID, PULMICORT NEBS BID, MORPHINE 2MG IV Q4H PRN, MUPIROCIN OINTMENT AROUND G TUBE BID, PROTONIX 40MG IV BID, POTASSIUM PROTOCOL, AND TYLENOL 650MG [place] Q4H PRN. HIS HOME MEDICATIONS OF XANAX, ASTELIN, COLACE, PROSCAR, FLONASE, FOLIC ACID, KEPPRA, MOBIC, NAMENDA, SINGULAIR, NYSTATIN, ZYPREXA, FLOMAX, VALPROIC ACID WERE RESUMED.. MONITOR LABS AND CHEST XRAY (2) Drainage from gastrostomy tube site Status: Acute (3) Generalized weakness Status: Acute (4) Fever Status: Acute Qualifiers: Fever type: unspecified Qualified Code(s): R50.9 - Fever, unspecified (5) Benign essential HTN Status: Chronic (6) Dementia Status: Chronic Qualifiers: Dementia type: vascular dementia (7) GERD (gastroesophageal reflux disease) Status: Chronic Qualifiers: Esophagitis presence: esophagitis presence not specified (8) COPD (chronic obstructive pulmonary disease) Status: Chronic Qualifiers: COPD type: unspecified COPD Qualified Code(s): J44.9 - Chronic obstructive pulmonary disease, unspecified (9) History of CVA (cerebrovascular accident) Status: Chronic
[2022-09-19] MEDS: MAG-OX TAB PO SCH ×2 (09:09→10:45)
[2022-09-19] MEDS: D5 1/2 NS + KCL 20 MEQ/L 1,000 ML IV SCH ×2 (09:10→20:13)
[2022-09-19] MEDS: DEPAKENE PEG SCH ×2 (09:24→20:15)
--- NOTE | 2022-09-19 12:10 | PCM.PROG ---
Progress Note - Progress Note for Day of Date of Exam: 09/18/22 - Subjective Subjective: IS CURRENTLY INPATIENT STATUS FOR TREATMENT OF RIGHT SIDED PNEUMONIA, DRAINAGE FROM GASTROSTOMY SITE, HYPONATREMIA, GENERALIZED WEAKNESS, AND FEVER. HE HAS A PMH OF HTN, DYSLIPIDEMIA, DM II, SCHIZOPHRENIA, DEMENTIA, DEPRESSION, ANXIETY, CVA, COPD, GERD, PROSTATE CANCER. HE IS APHASIC FROM PAST CVA. CONSULTED WITH PATIENT YESTERDAY AND REPLACED HIS PEG TUBE AT THE BEDSIDE. TODAY, HE IS ALERT, LYING IN BED ON MORNING ROUNDS. HE CONTINUES WITH A PRODUCTIVE COUGH THIS MORNING. HE IS CURRENTLY ON OXYGEN VIA NASAL CANNULA AT 2 LITERS/MIN. HIS SATURATION HAVE BEEN 100% THROUGHOUT THE NIGHT. ON EXAMINATION, HEART IS REGULAR IN RATE AND RHYTHM. BILATERAL LUNGS ARE NOTED WITH WHEEZING THROUGHOUT. ABDOMEN IS ROUND, SOFT, AND NON-TENDER WITH NORMAL BOWEL SOUNDS NOTED IN ALL QUADRANTS. HIS VITALS THIS MORNING ARE: 99.5-82-22-93%-98/65. LABS WERE OBTAINED. WBC 9.5, RBC 3.69, HGB 11.5, HCT 33.3, PLT COUNT 130, SODIUM 139, POTASSIUM 3.7, CHLORIDE 104, CARBON DIOXIDE 26.9, BUN 9, CREATININE 0.66, GLUCOSE 52, CALCIUM 9.5, MAGNESIUM 1.8, AST 65, ALT 120, ALK PHOS 120, TOTAL PROTEIN 6.3, ALBUMIN 2.5. BLOOD CULTURES ARE PENDING. CHEST XRAY WAS REPEATED AND REVEALED: Interval appearance of diffuse increase in parenchymal density in the right lung, accentuated by patient rotation to the right. Heart size remains normal with no definite infiltrate on the left. The pleural spaces remain well defined. HE IS CURRENTLY RECEIVING NORMAL SALINE AT 75ML/HR, FORTAZ 1G IV Q8H, LEVAQUIN 500MG IV DAILY, PROVENTIL NEBS TID, PULMICORT NEBS BID, MORPHINE 2MG IV Q4H PRN, MUPIROCIN OINTMENT AROUND G TUBE BID, PROTONIX 40MG IV BID, AND TYLENOL 650MG [place] Q4H PRN. HIS HOME MEDICATIONS OF XANAX, ASTELIN, COLACE, PROSCAR, FLONASE, FOLIC ACID, KEPPRA, MOBIC, NAMENDA, SINGULAIR, NYSTATIN, ZYPREXA, FLOMAX, VALPROIC ACID WERE RESUMED. WE WILL CONTINUE WITH CURRENT PLAN OF CARE TODAY. OTHERWISE, WE PLAN TO FOLLOW UP WITH AM LABS AND CONTINUE TO MONITOR. TIME SPENT ON CLINICAL ASSESSMENT, REVIEWING LABS AND IMAGING, DECISION MAKING, AND DOCUMENTATION GREATER THAN 45 MINUTES. - Past Medical Family Social History Past Med/Fam/Surg Hx: No changes since H&P Allergies: Allergies No Known Drug Allergies Allergy (Unknown, Verified 09/16/22 18:48) Onset Date: 09/28/2012 - Review of Systems ROS: No change since H&P - Vital Signs and I&O's Vital Signs: Vital Signs Temperature 98.6 F Pulse Rate 99 Pulse Rate 108 Pulse Rate 92 Pulse Rate 80 Pulse Rate 85 Pulse Rate 81 Pulse Rate 85 Pulse Rate 75 Respiratory Rate 23 Respiratory Rate 24 Respiratory Rate 19 Respiratory Rate 17 Respiratory Rate 22 Respiratory Rate 17 Blood Pressure 95/51 Blood Pressure 102/62 Blood Pressure 101/57 Blood Pressure 106/64 Blood Pressure 110/61 Blood Pressure 104/56 O2 Sat by Pulse Oximetry 100 O2 Sat by Pulse Oximetry 100 O2 Sat by Pulse Oximetry 100 O2 Sat by Pulse Oximetry 100 O2 Sat by Pulse Oximetry 100 O2 Sat by Pulse Oximetry 100 O2 Sat by Pulse Oximetry 100 O2 Sat by Pulse Oximetry 100 Intake and Output: Intake & Output 09/17/22 09/18/22 09/19/22 09/20/22 11:59 11:59 11:59 11:59 Intake Total 2875 / 2875 2057 / 2139 Balance 2875 / 2875 2057 - Physical Exam Oriented: Unable to test Eyes: Normal Ear: Normal Nose: Normal Throat: Normal Respiratory: Wheezes Cardiovascular: Tachycardia : Normal Auscultation: Bowel Sounds: Normal Palpation: Normal Tenderness: Periumbilical, Mild Skin: Red (PERIUMBILICAL ), Tender Musculoskeletal: Normal Psychiatric: Normal Mood Description: Calm Affect: Normal Speech Pattern: Aphasic - Laboratory and Diagnostics Result Diagrams: 09/19/22 04:03 09/19/22 04:03 Labs: 09/16/22 01:52 Blood Blood Culture - Preliminary 09/16/22 01:45 Blood Blood Culture - Preliminary Laboratory WBC 4.6 X10^3/uL (3.6-10.0) 09/19/22 04:03 RBC 3.41 X10^6/uL (4.7-6.0) L 09/19/22 04:03 Hgb 10.6 g/dL (13.5-18.0) L 09/19/22 04:03 Hct 30.7 % (42.0-54.0) L 09/19/22 04:03 MCV 90.1 fL (80.0-100.0) 09/19/22 04:03 MCH 31.2 pg (27.0-34.0) 09/19/22 04:03 MCHC 34.6 g/dL (33.0-35.0) 09/19/22 04:03 RDW 13.0 % (11.6-16.5) 09/19/22 04:03 Plt Count 117 X10^3/uL (150.0-450.0) L 09/19/22 04:03 Plt Count Comment Adequate (ADEQUATE) 09/16/22 05:53 MPV 8.3 fL (7.4-11.0) 09/19/22 04:03 Neut % (Auto) 71.6 % (42.0-75.0) 09/19/22 04:03 Lymph % (Auto) 16.7 % (21.0-51.0) L 09/19/22 04:03 [place] % (Auto) 7.6 % (0.0-13.0) 09/19/22 04:03 Eos % (Auto) 3.2 % (0.9-2.9) H 09/19/22 04:03 Baso % (Auto) 0.9 % (0.2-1.0) 09/19/22 04:03 Neut # (Auto) 3.3 x10^3/uL (2.2-4.8) 09/19/22 04:03 Lymph # (Auto) 0.8 X10^3/uL (1.3-2.9) L 09/19/22 04:03 [place] # (Auto) 0.4 x10^3/uL (0.3-0.8) 09/19/22 04:03 Eos # (Auto) 0.1 x10^3/uL (0.0-0.2) 09/19/22 04:03 Baso # (Auto) 0.0 X10^3/uL (0.0-0.1) 09/19/22 04:03 Absolute Nucleated RBC 0.0 /100WBC 09/19/22 04:03 Total Counted 100 09/16/22 05:53 Neutrophils % (Manual) 81 % (39-76) H 09/16/22 05:53 Band Neutrophils % 12 % (0-10) H 09/16/22 05:53 Lymphocytes % (Manual) 4 % (13-43) L 09/16/22 05:53 Monocytes % (Manual) 3 % (4-9) L 09/16/22 05:53 Eosinophils % (Manual) 0 % (0-6) 09/16/22 05:53 Basophils % (Manual) 0 % (0-1) 09/16/22 05:53 Plt Morphology Comment Normal (NORMAL) 09/16/22 05:53 RBC Morphology Normal (NORMAL) 09/16/22 05:53 Sodium 138 mmol/L (136-145) 09/19/22 04:03 Corrected Sodium TNP 09/19/22 04:03 Potassium 3.5 mmol/L (3.5-5.1) 09/19/22 04:03 Chloride 104 mmol/L (98-107) 09/19/22 04:03 Carbon Dioxide 29.6 mmol/L (21-32) 09/19/22 04:03 BUN 8 mg/dL (7-18) 09/19/22 04:03 Creatinine 0.67 mg/dL (0.70-1.30) L 09/19/22 04:03 Est GFR (MDRD) Af Amer > 60 (>60) 09/19/22 04:03 Est GFR (MDRD) Non-Af > 60 (>60) 09/19/22 04:03 Glucose 86 mg/dL (65-99) 09/19/22 04:03 POC Glucose (mg/dL) 81 mg/dL (65-99) 09/18/22 09:39 Lactic Acid 0.9 mmol/L (0.4-2.0) 09/16/22 01:52 Calcium 9.1 mg/dL (8.5-10.1) 09/19/22 04:03 Corrected Calcium 10.6 mg/dL (8.5-10.1) H 09/19/22 04:03 Magnesium 1.8 mg/dL (2.0-2.9) L 09/19/22 04:03 Total Bilirubin 0.50 mg/dL (0.2-1.0) 09/19/22 04:03 AST 32 Units/L (15-37) 09/19/22 04:03 ALT 71 Units/L (12-78) 09/19/22 04:03 Alkaline Phosphatase 102 Units/L (46-116) 09/19/22 04:03 Total Protein 5.7 g/dL (6.4-8.2) L 09/19/22 04:03 Albumin 2.1 g/dL (3.4-5.0) L 09/19/22 04:03 Globulin 3.6 g/dL (2.5-4.5) 09/19/22 04:03 Albumin/Globulin Ratio 0.6 Ratio (1.1-2.1) L 09/19/22 04:03 - Plan (1) Pneumonia Status: Acute Qualifiers: Pneumonia type: aspiration pneumonia Aspiration pneumonia type: due to gastric secretions Laterality: right Lung location: lower lobe of lung Qualified Code(s): J69.0 - Pneumonitis due to inhalation of food and vomit Plan: SUPPLEMENTAL OXYGEN, NORMAL SALINE AT 75ML/HR, FORTAZ 1G IV Q8H, LEVAQUIN 500MG IV DAILY, PROVENTIL NEBS TID, PULMICORT NEBS BID, MORPHINE 2MG IV Q4H PRN, MUPIROCIN OINTMENT AROUND G TUBE BID, PROTONIX 40MG IV BID, POTASSIUM PROTOCOL, AND TYLENOL 650MG [place] Q4H PRN. HIS HOME MEDICATIONS OF XANAX, ASTELIN, COLACE, PROSCAR, FLONASE, FOLIC ACID, KEPPRA, MOBIC, NAMENDA, SINGULAIR, NYSTATIN, ZYPREXA, FLOMAX, VALPROIC ACID WERE RESUMED.. MONITOR LABS AND CHEST XRAY (2) Drainage from gastrostomy tube site Status: Acute Plan: PEG TUBE REPLACED (3) Generalized weakness Status: Acute (4) Fever Status: Acute Qualifiers: Fever type: unspecified Qualified Code(s): R50.9 - Fever, unspecified (5) Benign essential HTN Status: Chronic (6) Dementia Status: Chronic Qualifiers: Dementia type: vascular dementia (7) GERD (gastroesophageal reflux disease) Status: Chronic Qualifiers: Esophagitis presence: esophagitis presence not specified (8) COPD (chronic obstructive pulmonary disease) Status: Chronic Qualifiers: COPD type: unspecified COPD Qualified Code(s): J44.9 - Chronic obstructive pulmonary disease, unspecified (9) History of CVA (cerebrovascular accident) Status: Chronic
--- NOTE | 2022-09-19 18:36 | PCM.PROG ---
Progress Note - Progress Note for Day of Date of Exam: 09/19/22 - Subjective Subjective: IS CURRENTLY INPATIENT STATUS FOR TREATMENT OF RIGHT SIDED PNEUMONIA, DRAINAGE FROM GASTROSTOMY SITE, HYPONATREMIA, GENERALIZED WEAKNESS, AND FEVER. HE HAS A PMH OF HTN, DYSLIPIDEMIA, DM II, SCHIZOPHRENIA, DEMENTIA, DEPRESSION, ANXIETY, CVA, COPD, GERD, PROSTATE CANCER. HE IS APHASIC FROM PAST CVA. REPLACED HIS PEG TUBE AT BEDSIDE ON 09/17. TODAY, HE IS ALERT, LYING IN BED ON MORNING ROUNDS. HE CONTINUES WITH A PRODUCTIVE COUGH THIS MORNING. HE IS CURRENTLY ON OXYGEN VIA NASAL CANNULA AT 4 LITERS/MIN. HIS SATURATION HAVE BEEN 100% THROUGHOUT THE NIGHT. ON EXAMINATION, HEART IS REGULAR IN RATE AND RHYTHM. BILATERAL LUNGS ARE NOTED WITH WHEEZING THROUGHOUT. ABDOMEN IS ROUND, SOFT, AND NON-TENDER WITH NORMAL BOWEL SOUNDS NOTED IN ALL QUADRANTS. HIS VITALS THIS MORNING ARE: 98.6-85-19-100%-101/57. LABS WERE OBTAINED. WBC 4.6, RBC 3.41, HGB 10.6, HCT 30.7, PLT COUNT 117, SODIUM 138, POTASSIUM 3.5, CHLORIDE 104, BUN 8, CREATININE 0.67, GLUCOSE 86, CALCIUM 9.1, MAGNESIUM 1.8, AST 32, ALT 71, ALK PHOS 102, TOTAL PROTEIN 5.7, ALBUMIN 2.1. BLOOD CULTURES ARE PENDING. RESPIRATORY AIT CULTURE WAS POSITIVE FOR E.COLI, KLEBSIELLA, AND PSEUDOMONAS AERUGINOSA. CHEST XRAY WAS REPEATED AND REVEALED: Increasing pneumonia right base. HE IS CURRENTLY RECEIVING NORMAL SALINE AT 75ML/HR, FORTAZ 1G IV Q8H, LEVAQUIN 500MG IV DAILY, PROVENTIL NEBS TID, PULMICORT NEBS BID, MORPHINE 2MG IV Q4H PRN, MUPIROCIN OINTMENT AROUND G TUBE BID, PROTONIX 40MG IV BID, AND TYLENOL 650MG [place] Q4H PRN. HIS HOME MEDICATIONS OF XANAX, ASTELIN, COLACE, PROSCAR, FLONASE, FOLIC ACID, KEPPRA, MOBIC, NAMENDA, SINGULAIR, NYSTATIN, ZYPREXA, FLOMAX, VALPROIC ACID WERE RESUMED. WE WILL CONTINUE WITH CURRENT PLAN OF CARE TODAY. OTHERWISE, WE PLAN TO FOLLOW UP WITH AM LABS AND CONTINUE TO MONITOR. TIME SPENT ON CLINICAL ASSESSMENT, REVIEWING LABS AND IMAGING, DECISION MAKING, AND DOCUMENTATION GREATER THAN 45 MINUTES. - Past Medical Family Social History Past Med/Fam/Surg Hx: No changes since H&P Allergies: Allergies No Known Drug Allergies Allergy (Unknown, Verified 09/16/22 18:48) Onset Date: 09/28/2012 - Review of Systems ROS: No change since H&P - Vital Signs and I&O's Vital Signs: Vital Signs Temperature 97.5 F Temperature 98.9 F Pulse Rate 77 Pulse Rate 85 Pulse Rate 70 Pulse Rate 100 Pulse Rate 74 Pulse Rate 88 Pulse Rate 83 Pulse Rate 81 Pulse Rate 99 Respiratory Rate 20 Respiratory Rate 21 Respiratory Rate 18 Respiratory Rate 19 Respiratory Rate 20 Respiratory Rate 25 Respiratory Rate 22 Respiratory Rate 23 Respiratory Rate 20 Blood Pressure 112/62 Blood Pressure 101/62 Blood Pressure 101/66 Blood Pressure 99/59 Blood Pressure 104/56 Blood Pressure 96/51 Blood Pressure 97/52 Blood Pressure 91/58 O2 Sat by Pulse Oximetry 100 O2 Sat by Pulse Oximetry 100 O2 Sat by Pulse Oximetry 100 O2 Sat by Pulse Oximetry 95 O2 Sat by Pulse Oximetry 100 O2 Sat by Pulse Oximetry 100 O2 Sat by Pulse Oximetry 100 O2 Sat by Pulse Oximetry 100 O2 Sat by Pulse Oximetry 100 Intake and Output: Intake & Output 09/17/22 09/18/22 09/19/22 09/20/22 11:59 11:59 11:59 11:59 Intake Total 2875 / 2875 2057 / 2140 1033 / 1033 Balance 2875 / 2875 20570 / 2140 1033 / 1033 - Physical Exam Oriented: Unable to test Eyes: Normal Ear: Normal Nose: Normal Throat: Normal Respiratory: Wheezes Cardiovascular: Tachycardia : Normal Auscultation: Bowel Sounds: Normal Palpation: Normal Tenderness: Periumbilical, Mild Skin: Red (PERIUMBILICAL ), Tender Musculoskeletal: Normal Psychiatric: Normal Mood Description: Calm Affect: Normal Speech Pattern: Aphasic - Laboratory and Diagnostics Result Diagrams: 09/19/22 04:03 09/19/22 04:03 Labs: 09/16/22 01:52 Blood Blood Culture - Preliminary 09/16/22 01:45 Blood Blood Culture - Preliminary Laboratory WBC 4.6 X10^3/uL (3.6-10.0) 09/19/22 04:03 RBC 3.41 X10^6/uL (4.7-6.0) L 09/19/22 04:03 Hgb 10.6 g/dL (13.5-18.0) L 09/19/22 04:03 Hct 30.7 % (42.0-54.0) L 09/19/22 04:03 MCV 90.1 fL (80.0-100.0) 09/19/22 04:03 MCH 31.2 pg (27.0-34.0) 09/19/22 04:03 MCHC 34.6 g/dL (33.0-35.0) 09/19/22 04:03 RDW 13.0 % (11.6-16.5) 09/19/22 04:03 Plt Count 117 X10^3/uL (150.0-450.0) L 09/19/22 04:03 Plt Count Comment Adequate (ADEQUATE) 09/16/22 05:53 MPV 8.3 fL (7.4-11.0) 09/19/22 04:03 Neut % (Auto) 71.6 % (42.0-75.0) 09/19/22 04:03 Lymph % (Auto) 16.7 % (21.0-51.0) L 09/19/22 04:03 [place] % (Auto) 7.6 % (0.0-13.0) 09/19/22 04:03 Eos % (Auto) 3.2 % (0.9-2.9) H 09/19/22 04:03 Baso % (Auto) 0.9 % (0.2-1.0) 09/19/22 04:03 Neut # (Auto) 3.3 x10^3/uL (2.2-4.8) 09/19/22 04:03 Lymph # (Auto) 0.8 X10^3/uL (1.3-2.9) L 09/19/22 04:03 [place] # (Auto) 0.4 x10^3/uL (0.3-0.8) 09/19/22 04:03 Eos # (Auto) 0.1 x10^3/uL (0.0-0.2) 09/19/22 04:03 Baso # (Auto) 0.0 X10^3/uL (0.0-0.1) 09/19/22 04:03 Absolute Nucleated RBC 0.0 /100WBC 09/19/22 04:03 Total Counted 100 09/16/22 05:53 Neutrophils % (Manual) 81 % (39-76) H 09/16/22 05:53 Band Neutrophils % 12 % (0-10) H 09/16/22 05:53 Lymphocytes % (Manual) 4 % (13-43) L 09/16/22 05:53 Monocytes % (Manual) 3 % (4-9) L 09/16/22 05:53 Eosinophils % (Manual) 0 % (0-6) 09/16/22 05:53 Basophils % (Manual) 0 % (0-1) 09/16/22 05:53 Plt Morphology Comment Normal (NORMAL) 09/16/22 05:53 RBC Morphology Normal (NORMAL) 09/16/22 05:53 Sodium 138 mmol/L (136-145) 09/19/22 04:03 Corrected Sodium TNP 09/19/22 04:03 Potassium 3.5 mmol/L (3.5-5.1) 09/19/22 04:03 Chloride 104 mmol/L (98-107) 09/19/22 04:03 Carbon Dioxide 29.6 mmol/L (21-32) 09/19/22 04:03 BUN 8 mg/dL (7-18) 09/19/22 04:03 Creatinine 0.67 mg/dL (0.70-1.30) L 09/19/22 04:03 Est GFR (MDRD) Af Amer > 60 (>60) 09/19/22 04:03 Est GFR (MDRD) Non-Af > 60 (>60) 09/19/22 04:03 Glucose 86 mg/dL (65-99) 09/19/22 04:03 POC Glucose (mg/dL) 81 mg/dL (65-99) 09/18/22 09:39 Lactic Acid 0.9 mmol/L (0.4-2.0) 09/16/22 01:52 Calcium 9.1 mg/dL (8.5-10.1) 09/19/22 04:03 Corrected Calcium 10.6 mg/dL (8.5-10.1) H 09/19/22 04:03 Magnesium 1.8 mg/dL (2.0-2.9) L 09/19/22 04:03 Total Bilirubin 0.50 mg/dL (0.2-1.0) 09/19/22 04:03 AST 32 Units/L (15-37) 09/19/22 04:03 ALT 71 Units/L (12-78) 09/19/22 04:03 Alkaline Phosphatase 102 Units/L (46-116) 09/19/22 04:03 Total Protein 5.7 g/dL (6.4-8.2) L 09/19/22 04:03 Albumin 2.1 g/dL (3.4-5.0) L 09/19/22 04:03 Globulin 3.6 g/dL (2.5-4.5) 09/19/22 04:03 Albumin/Globulin Ratio 0.6 Ratio (1.1-2.1) L 09/19/22 04:03 Resp Viral Panel (PCR) See scanned report 09/16/22 06:25 - Plan (1) Pneumonia Status: Acute Qualifiers: Pneumonia type: aspiration pneumonia Aspiration pneumonia type: due to gastric secretions Laterality: right Lung location: lower lobe of lung Qualified Code(s): J69.0 - Pneumonitis due to inhalation of food and vomit Plan: SUPPLEMENTAL OXYGEN, NORMAL SALINE AT 75ML/HR, FORTAZ 1G IV Q8H, LEVAQUIN 500MG IV DAILY, PROVENTIL NEBS TID, PULMICORT NEBS BID, MORPHINE 2MG IV Q4H PRN, MUPIROCIN OINTMENT AROUND G TUBE BID, PROTONIX 40MG IV BID, POTASSIUM PROTOCOL, AND TYLENOL 650MG [place] Q4H PRN. HIS HOME MEDICATIONS OF XANAX, ASTELIN, COLACE, PROSCAR, FLONASE, FOLIC ACID, KEPPRA, MOBIC, NAMENDA, SINGULAIR, NYSTATIN, ZYPREXA, FLOMAX, VALPROIC ACID WERE RESUMED.. MONITOR LABS AND CHEST XRAY (2) Drainage from gastrostomy tube site Status: Acute Plan: PEG TUBE REPLACED (3) Generalized weakness Status: Acute (4) Fever Status: Acute Qualifiers: Fever type: unspecified Qualified Code(s): R50.9 - Fever, unspecified (5) Benign essential HTN Status: Chronic (6) Dementia Status: Chronic Qualifiers: Dementia type: vascular dementia (7) GERD (gastroesophageal reflux disease) Status: Chronic Qualifiers: Esophagitis presence: esophagitis presence not specified (8) COPD (chronic obstructive pulmonary disease) Status: Chronic Qualifiers: COPD type: unspecified COPD Qualified Code(s): J44.9 - Chronic obstructive pulmonary disease, unspecified (9) History of CVA (cerebrovascular accident) Status: Chronic
[2022-09-20] MEDS: MORPHINE SULFATE INJ 2 MG INJ IVP PRN ×3 (00:37→19:23)
[2022-09-20] MEDS: D5 1/2 NS + KCL 20 MEQ/L 1,000 ML IV SCH ×4 (02:10→21:02)
[2022-09-20 05:12] LABS: BASOPHILS % (AUTO) 0.4 % (0.2-1.0); EOSINOPHILS # (AUTO) 0.2 x10^3/uL (0.0-0.2); EOSINOPHILS % (AUTO) 5.4 % (0.9-2.9); HEMATOCRIT 28.4 % (42.0-54.0); LYMPHOCYTES # (AUTO) 0.7 X10^3/uL (1.3-2.9); LYMPHOCYTES % (AUTO) 24.5 % (21.0-51.0); MEAN CORPUSCULAR HEMOGLOBIN 31.4 pg (27.0-34.0); MEAN CORPUSCULAR HGB CONC 35.1 g/dL (33.0-35.0); MEAN CORPUSCULAR VOLUME 89.4 fL (80.0-100.0); MEAN PLATELET VOLUME 7.7 fL (7.4-11.0); MONOCYTES # (AUTO) 0.3 x10^3/uL (0.3-0.8); MONOCYTES % (AUTO) 10.2 % (0.0-13.0); NEUTROPHILS # (AUTO) 1.8 x10^3/uL (2.2-4.8); NEUTROPHILS % (AUTO) 59.5 % (42.0-75.0); PLATELET COUNT 126 X10^3/uL (150.0-450.0); RED BLOOD COUNT 3.18 X10^6/uL (4.7-6.0); RED CELL DISTRIBUTION WIDTH 12.8 % (11.6-16.5)
[2022-09-20] MEDS: FORTAZ or TAZICEF VIAL INJ 1 G in NS 100 ML IV 100 ML IV SCH ×3 (05:18→21:00)
[2022-09-20] MEDS: ASTELIN NASAL SPRAY ENOSTRIL SCH ×3 (05:18→21:02)
[2022-09-20 05:26] LABS: ALANINE AMINOTRANSFERASE 55 Units/L (12-78); ALKALINE PHOSPHATASE 87 Units/L (46-116); ASPARTATE AMINO TRANSFERASE 23 Units/L (15-37); BLOOD UREA NITROGEN 6 mg/dL (7-18); CARBON DIOXIDE 31.3 mmol/L (21-32); COR CA(FOR HYPOALB) 10.6 mg/dL (8.5-10.1); CREATININE 0.58 mg/dL (0.70-1.30); GLUCOSE 100 mg/dL (65-99); TOTAL PROTEIN 5.6 g/dL (6.4-8.2); eGFR NON BLACK RACES > 60 (>60)
[2022-09-20 05:38] LABS: CHLORIDE 103 mmol/L (98-107); SODIUM 137 mmol/L (136-145)
[2022-09-20] MEDS: PROVENTIL NEB TX 0.083% 2.5MG/ 3ML NEB SCH ×3 (06:10→21:00)
--- NOTE | 2022-09-20 07:19 | RAD ---
HISTORYPNEUMONIA, SOBSTUDYCHEST, 1 [id number]/31/2023.TECHNIQUEPA or AP view of the chestFINDINGSPatient is rotated. Cardiac and mediastinal contours are within normal limits. Worse airspace opacity in the right upper lobe. Similar appearing right lower lung airspace opacity. Cannot exclude small right pleural effusion. No pneumothorax.IMPRESSIONWorst right upper lobe airspace opacity consistent with worsening pneumonia.Electronically signed by: Milan Keller (Sep 20, 2022 07:17:54)
[2022-09-20] MEDS: PULMICORT NEB TX 0.5 MG NEB SCH ×2 (08:15→21:00)
[2022-09-20] MEDS: BACTROBAN TOPICAL OINT TOP SCH ×2 (09:05→20:59)
[2022-09-20] MEDS: KEPPRA ORAL SOLN PEG SCH ×2 (09:06→21:00)
[2022-09-20] MEDS: FLONASE NASAL SPRAY ENOSTRIL SCH ×2 (09:06→21:02)
[2022-09-20] MEDS: PROTONIX INJ 40 MG VIAL IVP SCH ×2 (09:07→20:52)
[2022-09-20] MEDS: DEPAKENE PEG SCH ×2 (09:07→20:54)
[2022-09-20] MEDS: COLACE SYRUP 100 MG UDC PEG SCH (09:07)
[2022-09-20] MEDS: LEVAQUIN PREMIX IV 500 MG 500 MG/100 ML BAG IV SCH (09:08)
[2022-09-20] MEDS: FLOMAX PO SCH ×2 (09:11→20:57)
[2022-09-20] MEDS: XANAX PEG SCH ×2 (09:12→20:56)
[2022-09-20] MEDS: MOBIC TAB 15 MG PO SCH (09:12)
[2022-09-20] MEDS: FOLIC ACID TAB 1 MG NG SCH (09:13)
[2022-09-20] MEDS: NAMENDA TAB 10 MG PEG SCH ×2 (09:13→20:57)
[2022-09-20] MEDS: SINGULAIR TAB 10 MG PEG SCH (09:13)
[2022-09-20] MEDS: PROSCAR PEG SCH (09:13)
[2022-09-20] MEDS: OXCARBAZEPINE 150 MG PEG SCH ×2 (09:14→20:58)
[2022-09-20] MEDS: NYSTATIN CREAM TOP SCH (09:21)
--- NOTE | 2022-09-20 12:16 | PCM.PROG ---
Progress Note - Progress Note for Day of Date of Exam: 09/20/22 - Subjective Subjective: IS CURRENTLY INPATIENT STATUS FOR TREATMENT OF RIGHT SIDED PNEUMONIA, DRAINAGE FROM GASTROSTOMY SITE, HYPONATREMIA, GENERALIZED WEAKNESS, AND FEVER. HE HAS A PMH OF HTN, DYSLIPIDEMIA, DM II, SCHIZOPHRENIA, DEMENTIA, DEPRESSION, ANXIETY, CVA, COPD, GERD, PROSTATE CANCER. HE IS APHASIC FROM PAST CVA. REPLACED HIS PEG TUBE AT BEDSIDE ON 09/17. TODAY, HE IS ALERT, LYING IN BED ON MORNING ROUNDS. HE CONTINUES WITH A PRODUCTIVE COUGH THIS MORNING. HE IS CURRENTLY ON OXYGEN VIA NASAL CANNULA AT 4 LITERS/MIN. HIS SATURATION HAVE BEEN 100% THROUGHOUT THE NIGHT. ON EXAMINATION, HEART IS REGULAR IN RATE AND RHYTHM. BILATERAL LUNGS ARE NOTED WITH WHEEZING THROUGHOUT. ABDOMEN IS ROUND, SOFT, AND NON-TENDER WITH NORMAL BOWEL SOUNDS NOTED IN ALL QUADRANTS. HIS VITALS THIS MORNING ARE: 97.9-67-16-100%-107/59. LABS WERE OBTAINED. WBC 3.0, RBC 3.18, HGB 10.0, HCT 28.4, PLT COUNT 126, SODIUM 137, POTASSIUM 4.0, CHLORIDE 103, BUN 6, CREATININE 0.58, GLUCOSE 100, CALCIUM 9.0, MAGNESIUM 2.0, AST 23, ALT 55, ALK PHOS 87, TOTAL PROTEIN 5.6, ALBUMIN 2.0. BLOOD CULTURES ARE PENDING. RESPIRATORY AIT CULTURE WAS POSITIVE FOR E.COLI, KLEBSIELLA, AND PSEUDOMONAS AERUGINOSA. CHEST XRAY WAS REPEATED AND REVEALED: Worst right upper lobe airspace opacity consistent with worsening pneumonia. HE IS CURRENTLY RECEIVING NORMAL SALINE AT 75ML/HR, FORTAZ 1G IV Q8H, LEVAQUIN 500MG IV DAILY, PROVENTIL NEBS TID, PULMICORT NEBS BID, MORPHINE 2MG IV Q4H PRN, MUPIROCIN OINTMENT AROUND G TUBE BID, PROTONIX 40MG IV BID, AND TYLENOL 650MG SD Q4H PRN. HIS HOME MEDICATIONS OF XANAX, ASTELIN, COLACE, PROSCAR, FLONASE, FOLIC ACID, KEPPRA, MOBIC, NAMENDA, SINGULAIR, NYSTATIN, ZYPREXA, FLOMAX, VALPROIC ACID WERE RESUMED. WE WILL CONTINUE WITH CURRENT PLAN OF CARE TODAY. WE WILL RESUME HIS TUBE FEEDINGS. OTHERWISE, WE PLAN TO FOLLOW UP WITH AM LABS AND CONTINUE TO MONITOR. TIME SPENT ON CLINICAL ASSESSMENT, REVIEWING LABS AND IMAGING, DECISION MAKING, AND DOCUMENTATION GREATER THAN 45 MINUTES. - Past Medical Family Social History Past Med/Fam/Surg Hx: No changes since H&P Allergies: Allergies No Known Drug Allergies Allergy (Unknown, Verified 09/16/22 18:48) Onset Date: 09/28/2012 - Review of Systems ROS: No change since H&P - Vital Signs and I&O's Vital Signs: Vital Signs Temperature 97.9 F Pulse Rate 75 Pulse Rate 86 Pulse Rate 67 Pulse Rate 69 Pulse Rate 69 Pulse Rate 67 Pulse Rate 75 Pulse Rate 73 Pulse Rate 75 Pulse Rate 73 Pulse Rate 52 Respiratory Rate 17 Respiratory Rate 16 Respiratory Rate 12 Respiratory Rate 17 Respiratory Rate 16 Respiratory Rate 17 Respiratory Rate 17 Respiratory Rate 18 Respiratory Rate 18 Respiratory Rate 13 Respiratory Rate 24 Blood Pressure 93/55 Blood Pressure 102/57 Blood Pressure 100/58 Blood Pressure 101/58 Blood Pressure 107/59 Blood Pressure 108/63 Blood Pressure 94/55 O2 Sat by Pulse Oximetry 100 O2 Sat by Pulse Oximetry 100 O2 Sat by Pulse Oximetry 100 O2 Sat by Pulse Oximetry 100 O2 Sat by Pulse Oximetry 100 O2 Sat by Pulse Oximetry 100 O2 Sat by Pulse Oximetry 100 O2 Sat by Pulse Oximetry 100 O2 Sat by Pulse Oximetry 81 O2 Sat by Pulse Oximetry 76 O2 Sat by Pulse Oximetry 100 Intake and Output: Intake & Output 09/18/22 09/19/22 09/20/22 09/21/22 11:59 11:59 11:59 11:59 Intake Total 2057 2140 / 2140 2295 / 2295 Balance 2057 2140 / 2140 2295 / 2295 - Physical Exam Oriented: Unable to test Eyes: Normal Ear: Normal Nose: Normal Throat: Normal Respiratory: Wheezes Cardiovascular: Tachycardia : Normal Auscultation: Bowel Sounds: Normal Palpation: Normal Tenderness: Periumbilical, Mild Skin: Red (PERIUMBILICAL ), Tender Musculoskeletal: Normal Psychiatric: Normal Mood Description: Calm Affect: Normal Speech Pattern: Aphasic - Laboratory and Diagnostics Result Diagrams: 09/20/22 04:28 09/20/22 04:28 Labs: 09/16/22 01:52 Blood Blood Culture - Preliminary 09/16/22 01:45 Blood Blood Culture - Preliminary Laboratory WBC 3.0 X10^3/uL (3.6-10.0) L 09/20/22 04:28 RBC 3.18 X10^6/uL (4.7-6.0) L 09/20/22 04:28 Hgb 10.0 g/dL (13.5-18.0) L 09/20/22 04:28 Hct 28.4 % (42.0-54.0) L 09/20/22 04:28 MCV 89.4 fL (80.0-100.0) 09/20/22 04:28 MCH 31.4 pg (27.0-34.0) 09/20/22 04:28 MCHC 35.1 g/dL (33.0-35.0) H 09/20/22 04:28 RDW 12.8 % (11.6-16.5) 09/20/22 04:28 Plt Count 126 X10^3/uL (150.0-450.0) L 09/20/22 04:28 Plt Count Comment Adequate (ADEQUATE) 09/16/22 05:53 MPV 7.7 fL (7.4-11.0) 09/20/22 04:28 Neut % (Auto) 59.5 % (42.0-75.0) 09/20/22 04:28 Lymph % (Auto) 24.5 % (21.0-51.0) 09/20/22 04:28 [place] % (Auto) 10.2 % (0.0-13.0) 09/20/22 04:28 Eos % (Auto) 5.4 % (0.9-2.9) H 09/20/22 04:28 Baso % (Auto) 0.4 % (0.2-1.0) 09/20/22 04:28 Neut # (Auto) 1.8 x10^3/uL (2.2-4.8) L 09/20/22 04:28 Lymph # (Auto) 0.7 X10^3/uL (1.3-2.9) L 09/20/22 04:28 [place] # (Auto) 0.3 x10^3/uL (0.3-0.8) 09/20/22 04:28 Eos # (Auto) 0.2 x10^3/uL (0.0-0.2) 09/20/22 04:28 Baso # (Auto) 0.0 X10^3/uL (0.0-0.1) 09/20/22 04:28 Absolute Nucleated RBC 0.0 /100WBC 09/20/22 04:28 Total Counted 100 09/16/22 05:53 Neutrophils % (Manual) 81 % (39-76) H 09/16/22 05:53 Band Neutrophils % 12 % (0-10) H 09/16/22 05:53 Lymphocytes % (Manual) 4 % (13-43) L 09/16/22 05:53 Monocytes % (Manual) 3 % (4-9) L 09/16/22 05:53 Eosinophils % (Manual) 0 % (0-6) 09/16/22 05:53 Basophils % (Manual) 0 % (0-1) 09/16/22 05:53 Plt Morphology Comment Normal (NORMAL) 09/16/22 05:53 RBC Morphology Normal (NORMAL) 09/16/22 05:53 Sodium 137 mmol/L (136-145) 09/20/22 04:28 Corrected Sodium TNP 09/20/22 04:28 Potassium 4.0 mmol/L (3.5-5.1) 09/20/22 04:28 Chloride 103 mmol/L (98-107) 09/20/22 04:28 Carbon Dioxide 31.3 mmol/L (21-32) 09/20/22 04:28 BUN 6 mg/dL (7-18) L 09/20/22 04:28 Creatinine 0.58 mg/dL (0.70-1.30) L 09/20/22 04:28 Est GFR (MDRD) Af Amer > 60 (>60) 09/20/22 04:28 Est GFR (MDRD) Non-Af > 60 (>60) 09/20/22 04:28 Glucose 100 mg/dL (65-99) H 09/20/22 04:28 POC Glucose (mg/dL) 81 mg/dL (65-99) 09/18/22 09:39 Lactic Acid 0.9 mmol/L (0.4-2.0) 09/16/22 01:52 Calcium 9.0 mg/dL (8.5-10.1) 09/20/22 04:28 Corrected Calcium 10.6 mg/dL (8.5-10.1) H 09/20/22 04:28 Magnesium 2.0 mg/dL (2.0-2.9) 09/20/22 04:28 Total Bilirubin 0.40 mg/dL (0.2-1.0) 09/20/22 04:28 AST 23 Units/L (15-37) 09/20/22 04:28 ALT 55 Units/L (12-78) 09/20/22 04:28 Alkaline Phosphatase 87 Units/L (46-116) 09/20/22 04:28 Total Protein 5.6 g/dL (6.4-8.2) L 09/20/22 04:28 Albumin 2.0 g/dL (3.4-5.0) L 09/20/22 04:28 Globulin 3.6 g/dL (2.5-4.5) 09/20/22 04:28 Albumin/Globulin Ratio 0.6 Ratio (1.1-2.1) L 09/20/22 04:28 Resp Viral Panel (PCR) See scanned report 09/16/22 06:25 - Plan (1) Pneumonia Status: Acute Qualifiers: Pneumonia type: aspiration pneumonia Aspiration pneumonia type: due to gastric secretions Laterality: right Lung location: lower lobe of lung Qualified Code(s): J69.0 - Pneumonitis due to inhalation of food and vomit Plan: SUPPLEMENTAL OXYGEN, NORMAL SALINE AT 75ML/HR, FORTAZ 1G IV Q8H, LEVAQUIN 500MG IV DAILY, PROVENTIL NEBS TID, PULMICORT NEBS BID, MORPHINE 2MG IV Q4H PRN, MUPIROCIN OINTMENT AROUND G TUBE BID, PROTONIX 40MG IV BID, POTASSIUM PROTOCOL, AND TYLENOL 650MG SD Q4H PRN. HIS HOME MEDICATIONS OF XANAX, ASTELIN, COLACE, PROSCAR, FLONASE, FOLIC ACID, KEPPRA, MOBIC, NAMENDA, SINGULAIR, NYSTATIN, ZYPREXA, FLOMAX, VALPROIC ACID WERE RESUMED.. MONITOR LABS AND CHEST XRAY (2) Drainage from gastrostomy tube site Status: Acute Plan: PEG TUBE REPLACED, RESUME TUBE FEEDINGS (3) Generalized weakness Status: Acute (4) Fever Status: Acute Qualifiers: Fever type: unspecified Qualified Code(s): R50.9 - Fever, unspecified (5) Benign essential HTN Status: Chronic (6) Dementia Status: Chronic Qualifiers: Dementia type: vascular dementia (7) GERD (gastroesophageal reflux disease) Status: Chronic Qualifiers: Esophagitis presence: esophagitis presence not specified (8) COPD (chronic obstructive pulmonary disease) Status: Chronic Qualifiers: COPD type: unspecified COPD Qualified Code(s): J44.9 - Chronic obstructive pulmonary disease, unspecified (9) History of CVA (cerebrovascular accident) Status: Chronic
[2022-09-20 18:19] VITALS: O2SAT 100
[2022-09-21] MEDS: MORPHINE SULFATE INJ 2 MG INJ IVP PRN (04:50)
[2022-09-21] MEDS: ASTELIN NASAL SPRAY ENOSTRIL SCH (05:00)
[2022-09-21] MEDS: FORTAZ or TAZICEF VIAL INJ 1 G in NS 100 ML IV 100 ML IV SCH (05:00)
[2022-09-21 05:45] LABS: BASOPHILS % (AUTO) 1.3 % (0.2-1.0); BLOOD UREA NITROGEN 10 mg/dL (7-18); CALCIUM 9.2 mg/dL (8.5-10.1); CARBON DIOXIDE 30.2 mmol/L (21-32); CHLORIDE 102 mmol/L (98-107); COR NA(FOR HYPERGLY) 137 mmol/L (136-145); CREATININE 0.56 mg/dL (0.70-1.30); EOSINOPHILS # (AUTO) 0.2 x10^3/uL (0.0-0.2); EOSINOPHILS % (AUTO) 7.5 % (0.9-2.9); GLUCOSE 114 mg/dL (65-99); HEMATOCRIT 28.2 % (42.0-54.0); HEMOGLOBIN 9.9 g/dL (13.5-18.0); LYMPHOCYTES # (AUTO) 0.7 X10^3/uL (1.3-2.9); LYMPHOCYTES % (AUTO) 25.8 % (21.0-51.0); MEAN CORPUSCULAR HEMOGLOBIN 31.1 pg (27.0-34.0); MEAN CORPUSCULAR VOLUME 88.9 fL (80.0-100.0); MEAN PLATELET VOLUME 8.1 fL (7.4-11.0); MONOCYTES # (AUTO) 0.4 x10^3/uL (0.3-0.8); NEUTROPHILS # (AUTO) 1.3 x10^3/uL (2.2-4.8); NEUTROPHILS % (AUTO) 51.4 % (42.0-75.0); PLATELET COUNT 132 X10^3/uL (150.0-450.0); POTASSIUM 4.3 mmol/L (3.5-5.1); RED BLOOD COUNT 3.17 X10^6/uL (4.7-6.0); SODIUM 137 mmol/L (136-145); WHITE BLOOD COUNT 2.6 X10^3/uL (3.6-10.0); eGFR NON BLACK RACES > 60 (>60)
[2022-09-21] MEDS: PROVENTIL NEB TX 0.083% 2.5MG/ 3ML NEB SCH (05:50)
--- NOTE | 2022-09-21 05:55 | RAD ---
HISTORYSOB Relevant Clinical InformationSTUDYCHEST, 1 [id number]/[id number] trachea is midline. The cardiac silhouette is unremarkable. Right upper lobe airspace opacity again noted. There has been improvement in the right lower lung airspace opacity. The left lung remains clear. No pneumothorax.. The bony thorax is unremarkable.IMPRESSIONImproved aeration within the right lower lung field compared to previous 09/20/2022Electronically signed by: Michael Bower (Sep 21, 2022 05:53:33)
[2022-09-21 06:10] LABS: ALANINE AMINOTRANSFERASE 37 Units/L (12-78); ALBUMIN 1.9 g/dL (3.4-5.0); ALKALINE PHOSPHATASE 84 Units/L (46-116); ASPARTATE AMINO TRANSFERASE 18 Units/L (15-37); COR CA(FOR HYPOALB) 10.9 mg/dL (8.5-10.1); TOTAL PROTEIN 5.4 g/dL (6.4-8.2)
[2022-09-21] MEDS: LEVAQUIN PREMIX IV 500 MG 500 MG/100 ML BAG IV SCH (08:11)
[2022-09-21] MEDS: SINGULAIR TAB 10 MG PEG SCH (08:13)
[2022-09-21] MEDS: DEPAKENE PEG SCH (08:13)
[2022-09-21] MEDS: COLACE SYRUP 100 MG UDC PEG SCH (08:13)
[2022-09-21] MEDS: PROTONIX INJ 40 MG VIAL IVP SCH (08:13)
[2022-09-21] MEDS: MOBIC TAB 15 MG PO SCH (08:14)
[2022-09-21] MEDS: FLOMAX PO SCH (08:14)
[2022-09-21] MEDS: PROSCAR PEG SCH (08:15)
[2022-09-21] MEDS: NAMENDA TAB 10 MG PEG SCH (08:15)
[2022-09-21] MEDS: KEPPRA ORAL SOLN PEG SCH (08:15)
[2022-09-21] MEDS: FOLIC ACID TAB 1 MG NG SCH (08:15)
[2022-09-21] MEDS: XANAX PEG SCH (08:15)
[2022-09-21] MEDS: NYSTATIN CREAM TOP SCH (08:16)
[2022-09-21] MEDS: FLONASE NASAL SPRAY ENOSTRIL SCH (08:16)
[2022-09-21] MEDS: BACTROBAN TOPICAL OINT TOP SCH (08:17)
[2022-09-21] MEDS: OXCARBAZEPINE 150 MG PEG SCH (08:21)
[2022-09-21] MEDS: PULMICORT NEB TX 0.5 MG NEB SCH (09:25)
[2022-09-21] MEDS: DUONEB 0.5 MG/3 MG (3 mL) NEB SCH ×2 (09:25→13:20)
[2022-09-21] MEDS ORDERED: ELIQUIS NG SCH (09:45)
[2022-09-21] MEDS ORDERED: MILK OF MAGNESIA PO SCH (10:00)
[2022-09-21] MEDS: D5 1/2 NS + KCL 20 MEQ/L 1,000 ML IV SCH (10:26)
[2022-09-21 13:52] VITALS: BP 100/54; PULSE 82; RESP 18
[2022-09-21 13:53] VITALS: TEMP 97.9
== END 2022-09-21 13:35 | DRG 178 ==
LOC: ICU → OBSVTOIN 00:54
PROVIDERS: ADMIT Internal Medicine; ATTEND Internal Medicine
DX: R06.02 Shortness of breath; J44.9 Chronic obstructive pulmonary disease, unspecified; Z85.46 Personal history of malignant neoplasm of prostate; K21.9 Gastro-esophageal reflux disease without esophagitis; E11.65 Type 2 diabetes mellitus with hyperglycemia; B96.1 Klebsiella pneumoniae [K. pneumoniae] as the cause of diseases classified elsewhere; I69.920 Aphasia following unspecified cerebrovascular disease; R00.0 Tachycardia, unspecified; I10 Essential (primary) hypertension; J69.0 Pneumonitis due to inhalation of food and vomit; Z91.81 History of falling; F20.9 Schizophrenia, unspecified; B96.29 Other Escherichia coli [E. coli] as the cause of diseases classified elsewhere; E78.2 Mixed hyperlipidemia; F01.50 Vascular dementia, unspecified severity, without behavioral disturbance, psychotic disturbance, mood disturbance, and anxiety; B96.5 Pseudomonas (aeruginosa) (mallei) (pseudomallei) as the cause of diseases classified elsewhere; R53.1 Weakness; M25.521 Pain in right elbow; K94.23 Gastrostomy malfunction